=== PATIENT | male | born 1970 | race Caucasian/White ===

== ENCOUNTER 2018-01-05 02:10 | Emergency (ER) | payer BC ==
[2018-01-05] MEDS ORDERED: TORAdol 30 mg Injection IM ONE (02:38)
[2018-01-05] MEDS ORDERED: TORAdol 30 mg Injection ONE (02:40)
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
[2018-01-05 03:31] VITALS: BP 152/80; PULSE 133; O2SAT 96
--- NOTE | 2018-01-05 09:13 | XRAY ---
Indication: groin pain. Comparison: None AP pelvis and 2 views of the right hip demonstrates mild lower lumbar degenerative spondylosis, partially visualized lumbar spinal lead, calcified granuloma overlying right iliac crest, pelvic phleboliths, and minimal greater tuberosity spurring. No other bony, articular, or soft tissue abnormalities.
== END 2018-01-05 03:35 | disposition home or self-care (01) ==
LOC: ED 02:10
DX: S39.011A Strain of muscle, fascia and tendon of abdomen, initial encounter (principal); X50.0XXA Overexertion from strenuous movement or load, initial encounter; Y93.89 Activity, other specified; Y92.9 Unspecified place or not applicable; G62.9 Polyneuropathy, unspecified; M54.9 Dorsalgia, unspecified; G89.29 Other chronic pain; F45.42 Pain disorder with related psychological factors; I10 Essential (primary) hypertension; F32.9 Major depressive disorder, single episode, unspecified
CPT/HCPCS: 73502; 96372; 99283; 99284; J1885

== ENCOUNTER 2018-11-01 15:37 | Inpatient (IN) | payer MEDICARE, BC ==
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
[2018-11-01] MEDS ORDERED: Hydromorphone 1 mg/ml Ampule IV ONE (17:34)
[2018-11-01] MEDS ORDERED: Phenergan 25 MG INJ IV ONE (17:34)
[2018-11-01] MEDS ORDERED: Sodium Chloride 0.9% 1000 ML 1,000 ML IV STA (17:34)
[2018-11-01] MEDS ORDERED: Phenergan 25 MG INJ ONE (17:39)
[2018-11-01] MEDS ORDERED: Hydromorphone 1 mg/ml Ampule ONE (17:39)
[2018-11-01] MEDS ORDERED: Sodium Chloride 0.9% 1000 ML 1,000 ML ONE (17:39)
[2018-11-01 18:00] LABS: Hematocrit 52.3 % (42-50); Hemoglobin 17.4 gm/dl (12.5-18.0); Mean Cell Volume 89.7 fl (78-100); Mean Corpuscular Hemoglobin 29.8 pg (26-32); Mean Corpuscular Hgb Concent. 33.3 g/dl (32-36); Mean Platelet Volume 9.5 fl (6-9.5); Platelet Count 309 K/mm3 (150-450); Red Blood Count 5.83 M/mm3 (4.1-5.6); Red Cell Distribution Width 15.9 % (11.5-14.0); White Blood Count 15.4 K/mm3 (4.0-10.5)
[2018-11-01 18:04] LABS: Lactic Acid 2.5 (0.4-2.0)
[2018-11-01 18:22] LABS: ANION GAP 17.2 MEQ/L (5-15); BLOOD UREA NITROGEN 11 mg/dL (9-20); CHLORIDE 100 mmol/L (98-107); Calcium 9.5 mg/dL (8.4-10.2); Carbon Dioxide 26 mmol/L (22-30); Glucose 127 mg/dL (74-106); Potassium 4.5 mmol/L (3.5-5.1); SODIUM 139 mmol/L (137-145)
[2018-11-01] MEDS ORDERED: PHARMACY DOSING REQUIRED: DILAUDID PCA IV STA (20:49)
[2018-11-01] MEDS ORDERED: Phenergan 25 MG INJ IM PRN (20:49)
[2018-11-01] MEDS ORDERED: TYLENOL 325 MG PO PRN (20:49)
[2018-11-01] MEDS ORDERED: DILAUDID 1 MG/1ML PCA IV PRN (21:36)
[2018-11-01] MEDS ORDERED: Zovirax INJ IV SCH (22:00)
[2018-11-01 22:34] LABS: BAND 1 % (0.0-2.0); Eosinophil 2 % (0.00-3.0); Lymphocytes 6 % (24-44); Neutrophils 28 % (36.-66.); Platelet Estimate NORMAL (NORMAL); Promyelocyte 63 %; Total Cells Counted 100
[2018-11-01 22:35] LABS: ANISOCYTOSIS 1+; Poikilocytosis 1+; Toxic Granulation 1+
[2018-11-01] MEDS: Sodium Chloride 0.9% 1000 ML 1,000 ML IV SCH (22:36)
[2018-11-01 23:07] LABS: Lactic Acid 2.3 (0.4-2.0)
[2018-11-01] MEDS: Ms Contin 100 MG PO SCH (23:35)
[2018-11-01] MEDS: Vasotec 10 MG PO SCH (23:35)
[2018-11-01] MEDS: Cymbalta 30 MG Capsule PO SCH (23:35)
[2018-11-01] MEDS: ZOVIRAX IV SCH (23:36)
[2018-11-01] MEDS: solu-CORTEF 250MG IV SCH ×2 (23:36→23:41)
[2018-11-01] MEDS: SODIUM CHLORIDE 0.9% IV SCH (23:36)
[2018-11-02] MEDS ORDERED: Protonix 40MG Tablet ONE (00:11)
[2018-11-02] MEDS: Protonix 40MG Tablet PO SCH ×2 (00:19→22:32)
[2018-11-02] MEDS: MINERAL OIL PO SCH ×4 (03:51→22:32)
[2018-11-02] MEDS: ZOVIRAX IV SCH ×3 (06:57→18:39)
[2018-11-02] MEDS: SODIUM CHLORIDE 0.9% IV SCH ×3 (06:57→18:39)
--- NOTE | 2018-11-02 09:16 | XRAY ---
Indication: Headache 2 days. History hypertension and Mollaret's syndrome. Multiple contiguous axial images obtained through the head without contrast. Comparison: April 10, 2016. Stable small ovoid hypodensity in the superior sagittal sinus unchanged since May 03, 2009 and favored to be benign given stability over the years. No acute intracranial hemorrhage, abnormal extra-axial fluid collection, or mass effect. Fourth ventricle is midline without hydrocephalus. Naranjo-white matter differentiation preserved. Bony calvarium intact. Visualized paranasal sinuses and mastoid air cells are clear. Impression: Stable benign ovoid hypodensity in the superior sagittal sinus. No new or acute intracranial abnormalities. CTDI 69.90
--- NOTE | 2018-11-02 09:20 | XRAY ---
Indication: Neck pain 2 days. History hypertension and Mollaret's syndrome. Multiple contiguous axial images obtained through the cervical spine. Sagittal and coronal reformatted images obtained. Comparison: March 14, 2016. Axial images again negative for acute fracture, suspicious bony lesions, or spinal canal stenosis. Stable minimal C5-C7 degenerative endplate spurring. Sagittal and coronal reformatted images again demonstrate cervical lordotic straightening, positional versus paraspinal spasm. Stable minimal C5-C6 disc space narrowing. No acute compression fracture, subluxation, or jumped facet. Normal-appearing craniocervical junction. Visualized noncontrasted soft tissues including base of the brain and lung apices unremarkable. Impression: 1. Stable lordotic straightening, positional versus paraspinal spasm. 2. Stable C5-C7 degenerative changes. 3. No new or acute findings. CTDI 64.29
[2018-11-02] MEDS: solu-CORTEF 250MG IV SCH ×3 (09:58→20:39)
[2018-11-02] MEDS: Cymbalta 30 MG Capsule PO SCH ×2 (09:59→22:32)
[2018-11-02] MEDS: Ms Contin 100 MG PO SCH ×2 (09:59→22:32)
[2018-11-02] MEDS: Vasotec 10 MG PO SCH (09:59)
[2018-11-02] MEDS: Sodium Chloride 0.9% 1000 ML 1,000 ML IV SCH ×2 (10:21→22:31)
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
[2018-11-02] MEDS: ECOTRIN 81 MG PO SCH (13:30)
[2018-11-02] MEDS: DILAUDID 1 MG/1ML PCA IV PRN (20:37)
[2018-11-02] MEDS: NovoLOG Insulin SQ PRN (22:34)
[2018-11-03] MEDS: SODIUM CHLORIDE 0.9% IV SCH ×5 (00:20→23:43)
[2018-11-03] MEDS: ZOVIRAX IV SCH ×5 (00:20→23:43)
[2018-11-03] MEDS: DILAUDID 1 MG/1ML PCA IV PRN ×2 (01:57→23:10)
[2018-11-03] MEDS: solu-CORTEF 250MG IV SCH ×4 (02:59→19:31)
[2018-11-03 06:30] LABS: BASOPHIL % 0.2 % (0.0-0.4); Basophil (Absolute #) 0.02 (0-0.4); Eosinophil % 0.1 % (0.00-5.0); Eosinophil (Absolute #) 0.01 (0-0.5); Granulocytes % 87.2 % (36.0-66.0); Hematocrit 50.4 % (42-50); Hemoglobin 16.4 gm/dl (12.5-18.0); Lymphocyte (Absolute #) 1.16 (1.0-4.6); Lymphocytes % 9.2 % (24.0-44.0); Mean Cell Volume 91.5 fl (78-100); Mean Corpuscular Hemoglobin 29.8 pg (26-32); Mean Corpuscular Hgb Concent. 32.5 g/dl (32-36); Mean Platelet Volume 9.5 fl (6-9.5); Monocyte (Absolute #) 0.42 (0.0-1.3); Monocytes % 3.3 % (0.0-12.0); Platelet Count 310 K/mm3 (150-450); Red Blood Count 5.51 M/mm3 (4.1-5.6); Red Cell Distribution Width 15.8 % (11.5-14.0); White Blood Count 12.6 K/mm3 (4.0-10.5)
[2018-11-03 07:15] LABS: ANION GAP 14.3 MEQ/L (5-15); BLOOD UREA NITROGEN 12 mg/dL (9-20); CHLORIDE 104 mmol/L (98-107); Calcium 8.9 mg/dL (8.4-10.2); Carbon Dioxide 29 mmol/L (22-30); Creatinine 1 0.78 mg/dL (0.66-1.25); Glucose 132 mg/dL (74-106); Potassium 4.3 mmol/L (3.5-5.1); SODIUM 143 mmol/L (137-145)
--- NOTE | 2018-11-03 08:30 | PCM.NOTE ---
Date and Time: 11/03/18827 Subjective Assessment: patient reports some improvement in his headache, he is tolerating po. 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 General Appearance: no apparent distress, alert Neurologic Exam: alert, oriented x 3, cooperative, fixed income director II-XII nml as tested, No motor deficits, No sensory deficit Skin Exam: normal color, warm, dry Respiratory Exam: normal breath sounds, lungs clear, No respiratory distress Cardiovascular Exam: regular rate/rhythm, normal heart sounds Gastrointestinal/Abdomen Exam: soft, No tenderness, No mass Extremity Exam: normal inspection, normal range of motion OBJECTIVE DATA Vital Signs: Vital Signs - 24 hr Temp Pulse Resp BP Pulse Ox 11/03/18 08:08 93 L 11/03/18 08:00 97.6 F 79 20 123/77 96 11/03/18 05:57 95 11/03/18 04:10 97.8 F 69 18 124/72 97 11/03/18 01:57 96 11/03/18 00:37 96 11/03/18 00:06 98.7 F 89 18 119/55 96 11/02/18 23:00 97 11/02/18 20:37 97 11/02/18 20:18 98.3 F 92 H 16 110/57 97 11/02/18 18:47 96 11/02/18 18:03 96 11/02/18 16:42 97.8 F 91 H 20 114/59 96 11/02/18 12:39 97.8 F 83 20 123/76 97 Pain Assessment - Last Documented Pain Intensity 4 Pain Scale Used 0-10 Pain Scale,FLACC Intake and Output: Intake & Output 10/31/18 11/01/18 11/02/18 11/03/18 11:59 11:59 11:59 11:59 Intake Total 1172 4837 Output Total 400 1700 Balance 772 3137 Weight 106.5 kg Lab Results: Accuchecks Date 11/02/18 Date 11/02/18 Time 22:00 Time 16:30 Accucheck Value: 216 Accucheck Value: 178 Lab Results-Last 24 Hours 11/01/18 11/03/18 11/03/18 Range/Units 17:34 06:00 06:00 WBC 12.6 H (4.0-10.5) K/mm3 RBC 5.51 (4.1-5.6) M/mm3 Hgb 16.4 (12.5-18.0) gm/dl Hct 50.4 H (42-50) % MCV 91.5 (78-100) fl MCH 29.8 (26-32) pg MCHC 32.5 (32-36) g/dl RDW 15.8 H (11.5-14.0) % Plt Count 310 (150-450) K/mm3 MPV 9.5 (6-9.5) fl Gran % 87.2 H (36.0-66.0) % Eos # (Auto) 0.01 (0-0.5) Absolute Lymphs (auto) 1.16 (1.0-4.6) Absolute Monos (auto) 0.42 (0.0-1.3) Lymphocytes % 9.2 L (24.0-44.0) % Monocytes % 3.3 (0.0-12.0) % Eosinophils % 0.1 (0.00-5.0) % Basophils % 0.2 (0.0-0.4) % Absolute Granulocytes 10.95 H (1.4-6.9) Basophils # 0.02 (0-0.4) Sodium 143 (137-145) mmol/L Potassium 4.3 (3.5-5.1) mmol/L Chloride 104 (98-107) mmol/L Carbon Dioxide 29 (22-30) mmol/L Anion Gap 14.3 (5-15) MEQ/L BUN 12 (9-20) mg/dL Creatinine 0.78 (0.66-1.25) mg/dL Estimated GFR > 60.0 ML/MIN Glucose 132 H (74-106) mg/dL Hemoglobin A1c 6.22 H (4.5-6.0) % Calcium 8.9 (8.4-10.2) mg/dL Radiology Exams: Radiology Procedures Category Date Time Status CERVICAL SPINE WO CONTRAST [CT] Stat Exams 11/01/18 17:34 Completed HEAD WITHOUT CONTRAST [CT] Stat Exams 11/01/18 17:34 Completed Assessment/Plan (1) 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: Acute Assessment & Plan: improving with IV acyclovir and steroids, continue current treatment at this time. Code(s): G03.2 - BENIGN RECURRENT MENINGITIS [MOLLARET] (2) Paresthesia of both legs Current Visit: No Status: Acute Code(s): R20.2 - PARESTHESIA OF SKIN (3) Opiate dependence Current Visit: No Status: Chronic Code(s): F11.20 - OPIOID DEPENDENCE, UNCOMPLICATED (4) Type 2 diabetes mellitus Current Visit: No Status: Chronic
[2018-11-03] MEDS ORDERED: NON-FORMULARY ITEM (Aspirin [Aspirin] 81 MG) PO SCH (10:00)
[2018-11-03] MEDS: ECOTRIN 81 MG PO SCH (10:18)
[2018-11-03] MEDS: Cymbalta 30 MG Capsule PO SCH ×2 (10:18→22:07)
[2018-11-03] MEDS: Ms Contin 100 MG PO SCH ×2 (10:18→22:07)
[2018-11-03] MEDS: Sodium Chloride 0.9% 1000 ML 1,000 ML IV SCH ×2 (10:18→22:08)
[2018-11-03] MEDS: MINERAL OIL PO SCH ×3 (10:24→22:07)
[2018-11-03] MEDS: NovoLOG Insulin SQ PRN ×2 (16:52→22:07)
[2018-11-03] MEDS ORDERED: Vasotec 10 MG PO SCH (22:00)
[2018-11-03] MEDS: Protonix 40MG Tablet PO SCH (22:07)
[2018-11-04] MEDS: solu-CORTEF 250MG IV SCH ×2 (03:32→09:31)
[2018-11-04] MEDS: SODIUM CHLORIDE 0.9% IV SCH (05:55)
[2018-11-04] MEDS: ZOVIRAX IV SCH (05:55)
[2018-11-04 06:14] LABS: BASOPHIL % 0.1 % (0.0-0.4); Basophil (Absolute #) 0.01 (0-0.4); Eosinophil % 0.1 % (0.00-5.0); Eosinophil (Absolute #) 0.01 (0-0.5); Granulocytes % 83.2 % (36.0-66.0); Hematocrit 45.9 % (42-50); Hemoglobin 14.9 gm/dl (12.5-18.0); Lymphocyte (Absolute #) 1.55 (1.0-4.6); Lymphocytes % 11.4 % (24.0-44.0); Mean Cell Volume 92.4 fl (78-100); Mean Corpuscular Hgb Concent. 32.5 g/dl (32-36); Mean Platelet Volume 9.6 fl (6-9.5); Monocyte (Absolute #) 0.71 (0.0-1.3); Monocytes % 5.2 % (0.0-12.0); Platelet Count 305 K/mm3 (150-450); Red Blood Count 4.97 M/mm3 (4.1-5.6); Red Cell Distribution Width 15.9 % (11.5-14.0); White Blood Count 13.6 K/mm3 (4.0-10.5)
[2018-11-04 06:55] LABS: ALBUMIN 3.7 g/dL (3.5-5.0); ALKALINE PHOSPHATASE 71 U/L (38-126); BLOOD UREA NITROGEN 15 mg/dL (9-20); CHLORIDE 104 mmol/L (98-107); Calcium 8.7 mg/dL (8.4-10.2); Carbon Dioxide 31 mmol/L (22-30); Creatinine 1 0.81 mg/dL (0.66-1.25); Glucose 125 mg/dL (74-106); Potassium 4.9 mmol/L (3.5-5.1); SGOT/AST 23 U/L (17-59); SGPT/ALT 27 U/L (0-50); SODIUM 142 mmol/L (137-145); Total Protein 6.5 g/dL (6.3-8.2)
[2018-11-04 06:56] LABS: ANION GAP 11.9 MEQ/L (5-15)
[2018-11-04 07:27] VITALS: BP 124/68; PULSE 66
[2018-11-04 07:42] VITALS: O2SAT 95
--- NOTE | 2018-11-04 07:57 | PCM.DS ---
Discharge Summary Date of Admission: 11/01/18 20:43 Admitting Physician: ANN ALEXIS Primary Care Provider: ANN ALEXIS Allergies Allergies pregabalin [From Lyrica] Adverse Reaction (Severe, Verified 11/01/18 16:22) Hives SOB hives azithromycin [From Zmax] Adverse Reaction (Mild, Verified 11/01/18 16:22) vomiting methylprednisolone sodium succinate [From Solu-Medrol] Adverse Reaction (Mild, Verified 11/01/18 16:22) INCREASED OCULAR PRESSURE pt states he does okay with steriods and this is a minor side effect Hospital Summary - Hospital Course Hospital Course: patient with history of Mollaret's syndrome (recurrent aseptic meningitis) was admitted with usual flare with headache, photophobia, nausea and feeling poorly. was admitted and put on case fitter and IV fluids with acyclovir and solu cortef. he is feeling much better, tolerating po and ambulating. has chronic headaches and pain managed by Dr Greer - Vitals & Intake/Output Vital Signs: Vital Signs Temperature 98.2 F 11/04/18 07:26 Pulse Rate 66 11/04/18 07:26 Respiratory Rate 20 11/04/18 07:26 Blood Pressure 124/68 11/04/18 07:26 O2 Sat by Pulse Oximetry 95 11/04/18 07:40 Intake & Output: Intake & Output 11/01/18 11/02/18 11/03/18 11/04/18 11:59 11:59 11:59 11:59 Intake Total 1172 4837 3371 Output Total 400 1700 1000 Balance 772 1367 2371 Weight 106.5 kg 106.5 kg - Lab Result Diagrams: 11/04/18 05:43 11/04/18 05:43 Lab Results-Last 24 Hrs: Accuchecks Date 11/04/18 Date 11/03/18 Date 11/03/18 Date 11/03/18 Time 05:00 Time 22:00 Time 16:30 Time 11:30 Accucheck Value: 178 Accucheck Value: 152 Accucheck Value: 144 Lab Results-Last 24 Hours 11/04/18 11/04/18 Range/Units 05:43 05:43 WBC 13.6 H (4.0-10.5) K/mm3 RBC 4.97 (4.1-5.6) M/mm3 Hgb 14.9 (12.5-18.0) gm/dl Hct 45.9 (42-50) % MCV 92.4 (78-100) fl MCH 30.0 (26-32) pg MCHC 32.5 (32-36) g/dl RDW 15.9 H (11.5-14.0) % Plt Count 305 (150-450) K/mm3 MPV 9.6 H (6-9.5) fl Gran % 83.2 H (36.0-66.0) % Eos # (Auto) 0.01 (0-0.5) Absolute Lymphs (auto) 1.55 (1.0-4.6) Absolute Monos (auto) 0.71 (0.0-1.3) Lymphocytes % 11.4 L (24.0-44.0) % Monocytes % 5.2 (0.0-12.0) % Eosinophils % 0.1 (0.00-5.0) % Basophils % 0.1 (0.0-0.4) % Absolute Granulocytes 11.33 H (1.4-6.9) Basophils # 0.01 (0-0.4) Sodium 142 (137-145) mmol/L Potassium 4.9 (3.5-5.1) mmol/L Chloride 104 (98-107) mmol/L Carbon Dioxide 31 H (22-30) mmol/L Anion Gap 11.9 (5-15) MEQ/L BUN 15 (9-20) mg/dL Creatinine 0.81 (0.66-1.25) mg/dL Estimated GFR > 60.0 ML/MIN Glucose 125 H (74-106) mg/dL Calcium 8.7 (8.4-10.2) mg/dL Total Bilirubin 0.50 (0.2-1.3) mg/dL AST 23 (17-59) U/L ALT 27 (0-50) U/L Alkaline Phosphatase 71 (38-126) U/L Serum Total Protein 6.5 (6.3-8.2) g/dL Albumin 3.7 (3.5-5.0) g/dL Micro Results-Entire Visit: Accuchecks Date 11/04/18 Date 11/03/18 Date 11/03/18 Date 01/02/19 Time 05:00 Time 22:00 Time 16:30 Time 11:30 Accucheck Value: 178 Accucheck Value: 152 Accucheck Value: 144 Discharge Exam General Appearance: no apparent distress, alert Neurologic Exam: alert, oriented x 3, cooperative, normal mood/affect, nml cerebellar function, sensation nml, other (wears AFO pop with foot drop chronic from Mollaret's), No motor deficits Skin Exam: normal color, warm, dry Respiratory Exam: normal breath sounds, lungs clear, No respiratory distress Cardiovascular Exam: regular rate/rhythm, normal heart sounds Gastrointestinal/Abdomen Exam: soft, No tenderness, No mass Extremity Exam: normal inspection, normal range of motion Final Diagnosis/Problem List - Final Discharge Diagnosis/Problem (1) 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: Acute Onset Date: ~11/01/18 Assessment & Plan: home on po acyclovir, resume previous home meds. (2) Paresthesia of both legs Current Visit: No Status: Chronic (3) Opiate dependence Current Visit: No Status: Chronic (4) Type 2 diabetes mellitus Current Visit: No Status: Chronic - Discharge Disposition: Home, Self-Care Condition: Stable Prescriptions: New Acyclovir 400 mg PO TID #21 tablet Continue Enalapril Maleate 10 mg [Vasotec 10 MG] 20 mg PO HS Multivitamin [Multi-Vitamin Daily] 1 each PO DAILY Aspirin 81 mg PO DAILY Mineral Oil 30 ml PO TID Testosterone Cypionate 1.5 ml IM UD Duloxetine HCl [Cymbalta] 60 tab PO BID Prednisone 10 mg [Deltasone 10 mg] 10 mg PO DAILY Metformin HCl 500 mg [Glucophage 500 MG] 500 mg PO TID Morphine Sulfate Cr 100 mg [Ms Contin 100 MG] 100 mg PO BID PANTOPRAZOLE 40 mg Tablet [Protonix 40MG Tablet] 40 mg PO QPM Follow up with: ANN ALEXIS MD [Primary Care Provider] - 1 Week
[2018-11-04] MEDS: Cymbalta 30 MG Capsule PO SCH (09:31)
[2018-11-04] MEDS: Ms Contin 100 MG PO SCH (09:31)
[2018-11-04] MEDS: ECOTRIN 81 MG PO SCH (09:31)
[2018-11-04] MEDS: MINERAL OIL PO SCH (09:32)
== END 2018-11-04 10:00 | disposition home or self-care (01) | DRG 76 ==
LOC: ED 15:37 → MED SURG 20:43
PROVIDERS: ADMIT Family Medicine; ATTEND Family Medicine
DX: G03.2 Benign recurrent meningitis [Mollaret] (principal); I10 Essential (primary) hypertension; F42.9 Obsessive-compulsive disorder, unspecified; K21.9 Gastro-esophageal reflux disease without esophagitis; M79.2 Neuralgia and neuritis, unspecified; R51 Headache; Z79.899 Other long term (current) drug therapy
CPT/HCPCS: 36415; 70450; 72125; 80048; 80053; 82962; 83036; 83605; 85025; 94762; 96360; 96374; 96375; 99285; J1170; J1720; J2550; A9270-GY

== ENCOUNTER 2019-07-29 15:07 | Inpatient (IN) | payer MEDICARE, BC ==
[2019-07-29] MEDS ORDERED: Zofran 4 MG/2 ML VIAL IV PRN (15:32)
[2019-07-29] MEDS ORDERED: TYLENOL 325 MG PO PRN (15:34)
[2019-07-29] MEDS: Morphine PCA 1 MG/ML 30 ML IV PRN ×2 (15:58→22:39)
[2019-07-29] MEDS ORDERED: DEXTROSE IV SCH (16:00)
[2019-07-29] MEDS ORDERED: ZOVIRAX IV SCH (16:00)
[2019-07-29] MEDS ORDERED: WATER IV SCH (16:00)
[2019-07-29] MEDS: solu-CORTEF 100MG IV SCH ×2 (16:14→22:39)
[2019-07-29] MEDS: Sodium Chloride 0.9% 1000 ML 1,000 ML IV SCH (16:18)
[2019-07-29] MEDS ORDERED: DILAUDID 2 MG INJECTION IV STA (16:59)
[2019-07-29 17:17] LABS: Hematocrit 48.8 % (42-50); Hemoglobin 16.3 gm/dl (12.5-18.0); Mean Cell Volume 88.4 fl (78-100); Mean Corpuscular Hemoglobin 29.5 pg (26-32); Mean Corpuscular Hgb Concent. 33.4 g/dl (32-36); Mean Platelet Volume 9.9 fl (6-9.5); Platelet Count 360 K/mm3 (150-450); Red Blood Count 5.52 M/mm3 (4.1-5.6); Red Cell Distribution Width 15.6 % (11.5-14.0); White Blood Count 10.7 K/mm3 (4.0-10.5)
[2019-07-29 17:24] LABS: Amourphous Crystal FEW /HPF (NEGATIVE); Appearance CLEAR (CLEAR); Bilirubin NEGATIVE (NEGATIVE); Blood NEGATIVE Ery/ul (0-5); Glucose NEGATIVE (NEGATIVE); Ketones NEGATIVE (NEGATIVE); Leukocyte Esterase NEGATIVE (NEGATIVE); Mucus SLIGHT /HPF (NEGATIVE); Nitrite NEGATIVE (NEGATIVE); Protein,Urine Dip NEGATIVE (Negative); Specific Gravity 1.024 (1.005-1.025); Urobilinogen NEGATIVE mg/dL (0-1); WBC 0-2 /HPF (0-5)
[2019-07-29 17:38] LABS: ALBUMIN 4.1 g/dL (3.5-5.0); ALKALINE PHOSPHATASE 97 U/L (38-126); ANION GAP 16.8 MEQ/L (5-15); BLOOD UREA NITROGEN 10 mg/dL (9-20); CHLORIDE 101 mmol/L (98-107); Calcium 9.2 mg/dL (8.4-10.2); Carbon Dioxide 25 mmol/L (22-30); Creatinine 1 0.77 mg/dL (0.66-1.25); Glucose 138 mg/dL (74-106); Potassium 4.5 mmol/L (3.5-5.1); SGOT/AST 33 U/L (17-59); SGPT/ALT 41 U/L (0-50); SODIUM 138 mmol/L (137-145); Total Protein 7.4 g/dL (6.3-8.2)
[2019-07-29 20:09] LABS: Eosinophil 1 % (0.00-3.0); Lymphocytes 18 % (24-44); Monocyte 4 % (0.0-12.0); Neutrophils 77 % (36.-66.); Platelet Estimate NORMAL (NORMAL); Total Cells Counted 100
[2019-07-29] MEDS: Cymbalta 30 MG Capsule PO SCH (21:28)
[2019-07-29] MEDS: Protonix 40MG Tablet PO SCH (21:28)
[2019-07-29] MEDS: Vasotec 10 MG PO SCH (21:28)
[2019-07-29] MEDS: DILAUDID 2 MG INJECTION IV PRN (23:01)
[2019-07-30] MEDS: DEXTROSE IV SCH ×3 (01:13→17:30)
[2019-07-30] MEDS: WATER IV SCH ×3 (01:13→17:30)
[2019-07-30] MEDS: ZOVIRAX IV SCH ×3 (01:13→17:30)
[2019-07-30] MEDS: Sodium Chloride 0.9% 1000 ML 1,000 ML IV SCH ×3 (01:19→21:26)
[2019-07-30] MEDS: solu-CORTEF 100MG IV SCH ×3 (05:45→21:18)
[2019-07-30] MEDS: Morphine PCA 1 MG/ML 30 ML IV PRN ×4 (05:53→23:06)
[2019-07-30] MEDS: DILAUDID 2 MG INJECTION IV PRN ×3 (06:08→19:25)
[2019-07-30] MEDS: Glucophage 500 MG PO SCH ×3 (08:09→17:25)
--- NOTE | 2019-07-30 08:23 | PCM.NOTE ---
Date and Time: 07/30/19819 Subjective Assessment: doing ok, increased headache relieved by one dose of IV diluadid, IV infiltrated on left forearm. - Review of Systems Constitutional: No Fever, No Chills Eyes: No Symptoms Ears, Nose, & Throat: No Symptoms Respiratory: No Cough, No Short Of Breath Cardiac: No Chest Pain, No Edema, No Syncope Abdominal/Gastrointestinal: No Abdominal Pain, No Nausea, No Vomiting, No Diarrhea Genitourinary Symptoms: No Dysuria Musculoskeletal: No Back Pain, No Neck Pain Skin: No Rash Neurological: Headache, No Dizziness, No Focal Weakness, No Sensory Changes Psychological: No Symptoms Endocrine: No Symptoms Hematologic/Lymphatic: No Symptoms Immunological/Allergic: No Symptoms Objective Exam General Appearance: no apparent distress, alert Neurologic Exam: alert, oriented x 3, cooperative, normal mood/affect, nml cerebellar function, sensation nml, No motor deficits Skin Exam: normal color, warm, dry Eye Exam: PERRL, EOMI, eyes nml inspection Ears, Nose, Throat Exam: normal ENT inspection, pharynx normal, moist mucous membranes Neck Exam: normal inspection, non-tender, supple, full range of motion Respiratory Exam: normal breath sounds, lungs clear, No respiratory distress Cardiovascular Exam: regular rate/rhythm, normal heart sounds Gastrointestinal/Abdomen Exam: soft, No tenderness, No mass Extremity Exam: normal inspection, normal range of motion Back Exam: normal inspection, normal range of motion, No CVA tenderness, No vertebral tenderness Male Genitalia Exam: deferred Rectal Exam: deferred OBJECTIVE DATA Vital Signs: Vital Signs - 24 hr Temp Pulse Resp BP Pulse Ox 07/30/19 07:32 97.4 F 86 17 126/78 96 07/30/19 06:57 96 07/30/19 06:01 98 07/30/19 05:53 98 07/30/19 04:25 98.1 F 87 16 100/55 98 07/30/19 00:20 98.4 F 107 H 18 92/52 98 07/29/19 22:39 96 07/29/19 20:20 93 L 07/29/19 20:00 98.4 F 107 H 17 120/64 94 L 07/29/19 17:05 95 07/29/19 16:26 98.9 F 94 H 18 131/87 92 L 07/29/19 16:02 98.9 F 94 H 18 131/87 92 L 07/29/19 15:58 92 L Pain Assessment - Last Documented Pain Intensity 7 Pain Scale Used 0-10 Pain Scale Intake and Output: Intake & Output 07/27/19 07/28/19 07/29/19 07/30/19 11:59 11:59 11:59 11:59 Intake Total 3689 Output Total 2425 Balance 1264 Weight 111.7 kg Lab Results: Accuchecks Date 07/29/19 Date 07/29/19 Time 21:40 Time 16:30 Accucheck Value: 218 Accucheck Value: 133 Lab Results-Last 24 Hours 07/29/19 07/29/19 07/29/19 Range/Units 15:37 17:02 17:02 WBC 10.7 H (4.0-10.5) K/mm3 RBC 5.52 (4.1-5.6) M/mm3 Hgb 16.3 (12.5-18.0) gm/dl Hct 48.8 (42-50) % MCV 88.4 (78-100) fl MCH 29.5 (26-32) pg MCHC 33.4 (32-36) g/dl RDW 15.6 H (11.5-14.0) % Plt Count 360 (150-450) K/mm3 MPV 9.9 H (6-9.5) fl Segmented Neutrophils 77 H (36.-66.) % Lymphocytes (Manual) 18 L (24-44) % Monocytes (Manual) 4 (0.0-12.0) % Eosinophils (Manual) 1 (0.00-3.0) % Platelet Estimate NORMAL (NORMAL) RBC Morphology NORMAL Sodium 138 (137-145) mmol/L Potassium 4.5 (3.5-5.1) mmol/L Chloride 101 (98-107) mmol/L Carbon Dioxide 25 (22-30) mmol/L Anion Gap 16.8 H (5-15) MEQ/L BUN 10 (9-20) mg/dL Creatinine 0.77 (0.66-1.25) mg/dL Estimated GFR > 60.0 ML/MIN Glucose 138 H (74-106) mg/dL Calcium 9.2 (8.4-10.2) mg/dL Total Bilirubin 0.50 (0.2-1.3) mg/dL AST 33 (17-59) U/L ALT 41 (0-50) U/L Alkaline Phosphatase 97 (38-126) U/L Serum Total Protein 7.4 (6.3-8.2) g/dL Albumin 4.1 (3.5-5.0) g/dL Urine Color YELLOW (YELLOW) Urine Appearance CLEAR (CLEAR) Urine pH 7.0 (5-6) Ur Specific [place] 1.024 (1.005-1.025) Urine Protein NEGATIVE (Negative) Urine Ketones NEGATIVE (NEGATIVE) Urine Blood NEGATIVE (0-5) Chase/ul Urine Nitrite NEGATIVE (NEGATIVE) Urine Bilirubin NEGATIVE (NEGATIVE) Urine Urobilinogen NEGATIVE (0-1) mg/dL Ur Leukocyte Esterase NEGATIVE (NEGATIVE) Urine WBC (Auto) 0-2 (0-5) /HPF Urine RBC (Auto) NONE (0-2) /HPF U Epithel Cells (Auto) NONE (FEW) /HPF Urine Bacteria (Auto) NONE (NEGATIVE) /HPF Amorphous Crystals FEW (NEGATIVE) /HPF Urine Mucus (Auto) SLIGHT (NEGATIVE) /HPF Urine Culture Reflexed NO (NO) Urine Glucose NEGATIVE (NEGATIVE) mg/dL Assessment/Plan (1) 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: Acute Onset Date: ~11/01/18 Assessment & Plan: Last Vital Signs Temp 97.4 F 07/30/19 07:32 Pulse 86 07/30/19 07:32 Resp 17 07/30/19 07:32 BP 126/78 07/30/19 07:32 Pulse Ox 96 07/30/19 07:32 Allergies pregabalin [From Lyrica] Adverse Reaction (Severe, Verified 11/01/18 16:22) Hives SOB hives azithromycin [From Zmax] Adverse Reaction (Mild, Verified 11/01/18 16:22) vomiting methylprednisolone sodium succinate [From Solu-Medrol] Adverse Reaction (Mild, Verified 11/01/18 16:22) INCREASED OCULAR PRESSURE pt states he does okay with steriods and this is a minor side effect Active Medications Acetaminophen (Tylenol 325 Mg) 650 mg PO Q6H PRN PRN Stop: 08/28/19 15:33 Aspirin (Ecotrin 81 Mg) 81 mg PO DAILY [facility] Stop: 08/29/19 09:59 Duloxetine HCl (Cymbalta 30 Mg Capsule) 60 mg PO BID [facility] Stop: 08/28/19 21:59 Last Admin: 07/29/19 21:28 Dose: 60 mg Enalapril Maleate (Vasotec 10 Mg) 20 mg PO HS [facility] Stop: 08/28/19 21:59 Last Admin: 07/29/19 21:28 Dose: 20 mg Hydrocortisone Sodium Succinate (Solu-Cortef 100mg) 100 mg IV Q8HT [facility] Stop: 08/28/19 15:49 Last Admin: 07/30/19 05:45 Dose: 100 mg Hydromorphone HCl (Dilaudid 2 Mg Injection) 1 mg IV Q6H PRN PRN PRN Reason: PAIN Stop: 08/03/19 22:54 Last Admin: 07/30/19 06:08 Dose: 1 mg Sodium Chloride (Sodium Chloride 0.9% 1000 Ml) 1,000 mls @ 100 mls/hr IV .Q10H [facility] Stop: 08/28/19 15:29 Last Admin: 07/30/19 01:19 Dose: 100 mls/hr Acyclovir Sodium 1,000 mg/ (Dextrose) 250 mls @ 250 mls/hr IV Q8H [facility] Stop: 08/29/19 01:59 Last Admin: 07/30/19 01:13 Dose: 250 mls/hr Insulin Aspart (Novolog Insulin) 0 unit SQ UD PRN Stop: 08/28/19 15:44 Metformin HCl (Glucophage 500 Mg) 500 mg PO TIDWM [facility] Stop: 08/29/19 07:59 Last Admin: 07/30/19 08:09 Dose: 500 mg Morphine Sulfate (Morphine Brickmason Supervisor 1 Mg/Ml 30 Ml) 0 mg IV UD PRN Stop: 08/03/19 15:26 Last Admin: 07/30/19 06:01 Dose: 30 mg Multivitamins Therapeutic (Theragran Multivitamin) 1 tab PO DAILY [facility] Stop: 08/29/19 09:59 Ondansetron HCl (Zofran 4 Mg/2 Ml Vial) 4 mg IV Q4H PRN PRN PRN Reason: NAUSEA/VOMITING Stop: 08/28/19 15:31 Pantoprazole Sodium (Protonix 40mg Tablet) 40 mg PO HS [facility] Stop: 08/28/19 21:59 Last Admin: 07/29/19 21:28 Dose: 40 mg Patient Own Med : Implanted Morphine Pump 0 each IJ DAILY [facility] Stop: 08/29/19 09:59 Intake & Output 07/29/19 07/30/19 11:59 11:59 Intake Total 3689 Output Total 2425 Balance 1264 Weight 111.7 kg Orders 07/29/19 22:55 Hydromorphone 2Mg Inj [Dilaudid 2 mg Injection] 1 mg IV Q6H PRN PRN Lab Tests 07/29/19 07/29/19 07/29/19 15:37 17:02 17:02 WBC 10.7 H RBC 5.52 Hgb 16.3 Hct 48.8 MCV 88.4 MCH 29.5 MCHC 33.4 RDW 15.6 H Plt Count 360 MPV 9.9 H Segmented Neutrophils 77 H Lymphocytes (Manual) 18 L Monocytes (Manual) 4 Eosinophils (Manual) 1 Platelet Estimate NORMAL RBC Morphology NORMAL Sodium 138 Potassium 4.5 Chloride 101 Carbon Dioxide 25 Anion Gap 16.8 H BUN 10 Creatinine 0.77 Estimated GFR > 60.0 Glucose 138 H Calcium 9.2 Total Bilirubin 0.50 AST 33 ALT 41 Alkaline Phosphatase 97 Serum Total Protein 7.4 Albumin 4.1 Urine Color YELLOW Urine Appearance CLEAR Urine pH 7.0 Ur Specific [place] 1.024 Urine Protein NEGATIVE Urine Ketones NEGATIVE Urine Blood NEGATIVE Urine Nitrite NEGATIVE Urine Bilirubin NEGATIVE Urine Urobilinogen NEGATIVE Ur Leukocyte Esterase NEGATIVE Urine WBC (Auto) 0-2 Urine RBC (Auto) NONE U Epithel Cells (Auto) NONE Urine Bacteria (Auto) NONE Amorphous Crystals FEW Urine Mucus (Auto) SLIGHT Urine Culture Reflexed NO Urine Glucose NEGATIVE Code(s): G03.2 - BENIGN RECURRENT MENINGITIS [MOLLARET] (2) Cephalgia Current Visit: No Status: Acute Onset Date: ~11/01/18 Qualifiers: Headache type: unspecified Headache chronicity pattern: chronic headache Intractability: not intractable Qualified Code(s): R51 - Headache Code(s): R51 - HEADACHE (3) Paresthesia of both legs Current Visit: No Status: Chronic Code(s): R20.2 - PARESTHESIA OF SKIN (4) Type 2 diabetes mellitus Current Visit: No Status: Chronic
[2019-07-30] MEDS: THERAGRAN MULTIVITAMIN PO SCH (09:35)
[2019-07-30] MEDS: Cymbalta 30 MG Capsule PO SCH ×2 (09:35→21:17)
[2019-07-30] MEDS: PATIENT OWN MEDICATION IJ SCH (09:36)
[2019-07-30] MEDS: ECOTRIN 81 MG PO SCH (09:36)
[2019-07-30] MEDS ORDERED: MORPHINE SULFATE IJ SCH (10:00)
[2019-07-30] MEDS ORDERED: NON-FORMULARY ITEM (Aspirin [Aspirin] 81 MG) PO SCH (10:00)
[2019-07-30] MEDS ORDERED: NON-FORMULARY ITEM (Multivitamin [Multi-Vitamin Daily] 1 EACH) PO SCH (10:00)
[2019-07-30] MEDS: NovoLOG Insulin SQ PRN ×2 (12:52→21:19)
[2019-07-30] MEDS: Vasotec 10 MG PO SCH (21:18)
[2019-07-30] MEDS: Protonix 40MG Tablet PO SCH (21:18)
[2019-07-31] MEDS: DEXTROSE IV SCH ×3 (02:03→17:17)
[2019-07-31] MEDS: WATER IV SCH ×3 (02:03→17:17)
[2019-07-31] MEDS: ZOVIRAX IV SCH ×3 (02:03→17:17)
[2019-07-31] MEDS: solu-CORTEF 100MG IV SCH ×3 (06:36→21:13)
[2019-07-31] MEDS: DILAUDID 2 MG INJECTION IV PRN ×3 (06:52→21:25)
[2019-07-31] MEDS: Sodium Chloride 0.9% 1000 ML 1,000 ML IV SCH ×2 (06:52→17:16)
[2019-07-31] MEDS: Glucophage 500 MG PO SCH ×3 (07:55→16:31)
[2019-07-31] MEDS: THERAGRAN MULTIVITAMIN PO SCH (09:06)
[2019-07-31] MEDS: Cymbalta 30 MG Capsule PO SCH ×2 (09:06→21:12)
[2019-07-31] MEDS: ECOTRIN 81 MG PO SCH (09:06)
[2019-07-31] MEDS: PATIENT OWN MEDICATION IJ SCH (09:07)
--- NOTE | 2019-07-31 09:46 | PCM.NOTE ---
Date and Time: 07/31/1945 Subjective Assessment: doing better, headache is better, IV infiltration site appears resolving - Review of Systems Constitutional: No Fever, No Chills Eyes: No Symptoms Ears, Nose, & Throat: No Symptoms Respiratory: No Cough, No Short Of Breath Cardiac: No Chest Pain, No Edema, No Syncope Abdominal/Gastrointestinal: No Abdominal Pain, No Nausea, No Vomiting, No Diarrhea Genitourinary Symptoms: No Dysuria Musculoskeletal: No Back Pain, No Neck Pain Skin: No Rash Neurological: No Dizziness, No Focal Weakness, No Sensory Changes Psychological: No Symptoms Endocrine: No Symptoms Hematologic/Lymphatic: No Symptoms Immunological/Allergic: No Symptoms Objective Exam General Appearance: no apparent distress, alert Neurologic Exam: alert, oriented x 3, cooperative, normal mood/affect, nml cerebellar function, sensation nml, No motor deficits Skin Exam: normal color, warm, dry Eye Exam: PERRL, EOMI, eyes nml inspection Ears, Nose, Throat Exam: normal ENT inspection, pharynx normal, moist mucous membranes Neck Exam: normal inspection, non-tender, supple, full range of motion Respiratory Exam: normal breath sounds, lungs clear, No respiratory distress Cardiovascular Exam: regular rate/rhythm, normal heart sounds Gastrointestinal/Abdomen Exam: soft, No tenderness, No mass Extremity Exam: normal inspection, normal range of motion Back Exam: normal inspection, normal range of motion, No CVA tenderness, No vertebral tenderness Male Genitalia Exam: deferred Rectal Exam: deferred OBJECTIVE DATA Vital Signs: Vital Signs - 24 hr Temp Pulse Resp BP Pulse Ox 07/31/19 07:57 97.7 F 76 18 124/68 98 07/31/19 07:13 97 07/31/19 06:45 98 07/31/19 06:01 98 07/31/19 04:04 98.4 F 94 H 18 99/57 98 07/31/19 03:06 98 07/31/19 02:45 97 07/31/19 02:01 98 07/30/19 23:37 98.1 F 94 H 20 128/73 99 07/30/19 23:06 98 07/30/19 22:45 98 07/30/19 22:01 98 07/30/19 20:05 99 07/30/19 19:32 97.4 F 110 H 16 111/63 98 07/30/19 18:45 98 07/30/19 18:01 98 07/30/19 17:10 96 07/30/19 16:00 97.4 F 88 18 118/65 96 07/30/19 14:45 97 07/30/19 14:01 96 07/30/19 12:00 97.6 F 97 H 18 118/65 96 07/30/19 11:30 97 07/30/19 10:01 97 Pain Assessment - Last Documented Pain Intensity 7 Pain Scale Used 0-10 Pain Scale Intake and Output: Intake & Output 07/28/19 07/29/19 07/30/19 07/31/19 11:59 11:59 11:59 11:59 Intake Total 4049 5308 Output Total 2809 5725 Balance 1249 -417 Weight 111.7 kg Lab Results: Accuchecks Accucheck Value: 111 Accucheck Value: 202 Accucheck Value: 145 Accucheck Value: 185 Assessment/Plan (1) 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: Acute Onset Date: ~11/01/18 Assessment & Plan: Last Vital Signs Temp 97.7 F 07/31/19 07:57 Pulse 76 07/31/19 07:57 Resp 18 07/31/19 07:57 BP 124/68 07/31/19 07:57 Pulse Ox 98 07/31/19 07:57 Allergies pregabalin [From Lyrica] Adverse Reaction (Severe, Verified 11/01/18 16:22) Hives SOB hives azithromycin [From Zmax] Adverse Reaction (Mild, Verified 11/01/18 16:22) vomiting methylprednisolone sodium succinate [From Solu-Medrol] Adverse Reaction (Mild, Verified 11/01/18 16:22) INCREASED OCULAR PRESSURE pt states he does okay with steriods and this is a minor side effect Active Medications Acetaminophen (Tylenol 325 Mg) 650 mg PO Q6H PRN PRN Stop: 08/28/19 15:33 Aspirin (Ecotrin 81 Mg) 81 mg PO DAILY [facility] Stop: 08/29/19 09:59 Last Admin: 07/31/19 09:06 Dose: 81 mg Duloxetine HCl (Cymbalta 30 Mg Capsule) 60 mg PO BID [facility] Stop: 08/28/19 21:59 Last Admin: 07/31/19 09:06 Dose: 60 mg Enalapril Maleate (Vasotec 10 Mg) 20 mg PO HS [facility] Stop: 08/28/19 21:59 Last Admin: 07/30/19 21:18 Dose: 20 mg Hydrocortisone Sodium Succinate (Solu-Cortef 100mg) 100 mg IV Q8HT [facility] Stop: 08/28/19 15:49 Last Admin: 07/31/19 06:36 Dose: 100 mg Hydromorphone HCl (Dilaudid 2 Mg Injection) 1 mg IV Q6H PRN PRN PRN Reason: PAIN Stop: 08/03/19 22:54 Last Admin: 07/31/19 06:52 Dose: 1 mg Sodium Chloride (Sodium Chloride 0.9% 1000 Ml) 1,000 mls @ 100 mls/hr IV .Q10H [facility] Stop: 08/28/19 15:29 Last Admin: 07/31/19 06:52 Dose: 100 mls/hr Acyclovir Sodium 1,000 mg/ (Dextrose) 250 mls @ 250 mls/hr IV Q8H [facility] Stop: 08/29/19 01:59 Last Admin: 07/31/19 09:06 Dose: 250 mls/hr Insulin Aspart (Novolog Insulin) 0 unit SQ UD PRN Stop: 08/28/19 15:44 Last Admin: 07/30/19 21:19 Dose: 5 unit Metformin HCl (Glucophage 500 Mg) 500 mg PO TIDWM [facility] Stop: 08/29/19 07:59 Last Admin: 07/31/19 07:55 Dose: 500 mg Morphine Sulfate (Morphine Slip Box Changer 1 Mg/Ml 30 Ml) 0 mg IV UD PRN Stop: 08/03/19 15:26 Last Admin: 07/30/19 23:06 Dose: 30 mg Multivitamins Therapeutic (Theragran Multivitamin) 1 tab PO DAILY [facility] Stop: 08/29/19 09:59 Last Admin: 07/31/19 09:06 Dose: 1 tab Ondansetron HCl (Zofran 4 Mg/2 Ml Vial) 4 mg IV Q4H PRN PRN PRN Reason: NAUSEA/VOMITING Stop: 08/28/19 15:31 Pantoprazole Sodium (Protonix 40mg Tablet) 40 mg PO HS [facility] Stop: 08/28/19 21:59 Last Admin: 07/30/19 21:18 Dose: 40 mg Patient Own Med : Implanted Morphine Pump 0 each IJ DAILY [facility] Stop: 08/29/19 09:59 Last Admin: 07/31/19 09:07 Dose: 15.6 each Intake & Output 07/30/19 07/31/19 11:59 11:59 Intake Total 404 5308 Output Total 7892 5790 Balance 1249 -417 Weight 111.7 kg Code(s): G03.2 - BENIGN RECURRENT MENINGITIS [MOLLARET] (2) Cephalgia Current Visit: No Status: Acute Onset Date: ~11/01/18 Qualifiers: Headache type: unspecified Headache chronicity pattern: chronic headache Intractability: not intractable Qualified Code(s): R51 - Headache Code(s): R51 - HEADACHE (3) Paresthesia of both legs Current Visit: No Status: Chronic Code(s): R20.2 - PARESTHESIA OF SKIN (4) Type 2 diabetes mellitus Current Visit: No Status: Chronic
[2019-07-31] MEDS: Morphine PCA 1 MG/ML 30 ML IV PRN ×2 (13:12→18:17)
[2019-07-31] MEDS: NovoLOG Insulin SQ PRN ×2 (17:44→21:30)
[2019-07-31] MEDS: Protonix 40MG Tablet PO SCH (21:11)
[2019-07-31] MEDS: Vasotec 10 MG PO SCH (21:12)
[2019-08-01] MEDS: DEXTROSE IV SCH (02:07)
[2019-08-01] MEDS: WATER IV SCH (02:07)
[2019-08-01] MEDS: ZOVIRAX IV SCH (02:07)
[2019-08-01] MEDS: Sodium Chloride 0.9% 10 ML FLUSH Syringe IV PRN ×3 (02:08→05:01)
[2019-08-01] MEDS: Sodium Chloride 0.9% 1000 ML 1,000 ML IV SCH (03:07)
[2019-08-01] MEDS: DILAUDID 2 MG INJECTION IV PRN (03:45)
[2019-08-01] MEDS: Morphine PCA 1 MG/ML 30 ML IV PRN ×2 (04:12→04:35)
[2019-08-01] MEDS: solu-CORTEF 100MG IV SCH (05:01)
[2019-08-01 07:16] VITALS: BP 130/72; PULSE 87; O2SAT 96
[2019-08-01] MEDS: Glucophage 500 MG PO SCH (08:23)
--- NOTE | 2019-08-01 08:44 | PCM.DS ---
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 - Vitals & Intake/Output Vital Signs: Vital Signs Temperature 97.9 F 08/01/19 07:14 Pulse Rate 87 08/01/19 07:14 Respiratory Rate 08/01/19 07:14 Blood Pressure 130/72 08/01/19 07:14 O2 Sat by Pulse Oximetry 96 08/01/19 07:14 Intake & Output: Intake & Output 07/29/19 07/30/19 07/31/19 08/01/19 11:59 11:59 11:59 11:59 Intake Total 4049 5308 5057 Output Total 2800 5725 4720 Balance 1249 -417 337 Weight 111.7 kg - Lab Result Diagrams: 07/29/19 17:02 07/29/19 17:02 Lab Results-Last 24 Hrs: Accuchecks Date 08/01/19 Date 07/31/19 Time 07:30 Time 21:30 Accucheck Value: 111 Accucheck Value: 180 Accucheck Value: 155 Accucheck Value: 142 Micro Results-Entire Visit: Accuchecks Date 08/01/19 Date 07/31/19 Time 07:30 Time 21:30 Accucheck Value: 111 Accucheck Value: 180 Accucheck Value: 155 Accucheck Value: 142 Discharge Exam General Appearance: no apparent distress, obese Neurologic Exam: alert, oriented x 3 Neck Exam: normal inspection, non-tender, supple, full range of motion Respiratory Exam: normal breath sounds, lungs clear, No respiratory distress Cardiovascular Exam: regular rate/rhythm, normal heart sounds Gastrointestinal/Abdomen Exam: soft, No tenderness, No mass Final Diagnosis/Problem List - Final Discharge Diagnosis/Problem (1) 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: Acute Onset Date: ~11/01/18 Code(s): G03.2 - BENIGN RECURRENT MENINGITIS [MOLLARET] (2) Cephalgia Current Visit: No Status: Acute Onset Date: ~11/01/18 Code(s): R51 - HEADACHE - Discharge Disposition: Home, Self-Care Condition: Stable Prescriptions: New Acyclovir 400 mg PO TID #15 tablet Continue Enalapril Maleate 10 mg [Vasotec 10 MG] 20 mg PO HS Multivitamin [Multi-Vitamin Daily] 1 each PO DAILY Aspirin 81 mg PO DAILY Mineral Oil 30 ml PO TID Testosterone Cypionate 1.5 ml IM UD Duloxetine HCl [Cymbalta] 60 tab PO BID Prednisone 10 mg [Deltasone 10 mg] 15 mg PO DAILY Metformin HCl 500 mg [Glucophage 500 MG] 500 mg PO TIDAC Morphine Sulfate Cr 100 mg [Ms Contin 100 MG] 30 mg PO Q6H PRN PRN Reason: Pain PANTOPRAZOLE 40 mg Tablet [Protonix 40MG Tablet] 40 mg PO QPM Morphine Sulfate/Pf [Morphine 10 mg/10 ml Vial] 15.6 mg IJ DAILY Follow up with: ANN ALEXIS MD [Primary Care Provider] - 1 Week
== END 2019-08-01 09:20 | disposition home or self-care (01) | DRG 76 ==
LOC: MED SURG 15:13 → OBSVTOIN 07-30 15:30
PROVIDERS: ADMIT Family Medicine; ATTEND Family Medicine
DX: G03.2 Benign recurrent meningitis [Mollaret] (principal); R51 Headache; R20.2 Paresthesia of skin; E11.9 Type 2 diabetes mellitus without complications; Z79.899 Other long term (current) drug therapy
CPT/HCPCS: 36415; 80053; 81001; 82962; 85025; 94762; G0378; J0133; J1170; J1720; J2270; A9270-GY

== ENCOUNTER 2019-10-02 08:57 | Emergency (ER) | payer MEDICARE, BC ==
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
[2019-10-02] MEDS ORDERED: Rocephin 1000 MG INJ IM ONE (09:36)
[2019-10-02] MEDS ORDERED: Rocephin 1000 MG INJ ONE (09:45)
[2019-10-02] MEDS ORDERED: XYLOCAINE 1% HCL 20 ML MDV ONE (09:46)
[2019-10-02 09:49] VITALS: BP 137/100; PULSE 69; O2SAT 99
== END 2019-10-02 10:44 | disposition home or self-care (01) ==
LOC: ED 08:57
DX: J40 Bronchitis, not specified as acute or chronic (principal); J02.9 Acute pharyngitis, unspecified
CPT/HCPCS: 96372; 99284; J0696

== ENCOUNTER 2019-10-23 16:01 | Observation (INO) | payer BC ==
[2019-10-23] MEDS ORDERED: Sodium Chloride 0.9% 1000 ML 1,000 ML IV STA (18:03)
[2019-10-23] MEDS ORDERED: Zofran 4 MG/2 ML VIAL IV ONE (18:04)
[2019-10-23] MEDS ORDERED: Hydromorphone 1 mg/ml Ampule IV ONE (18:04)
[2019-10-23] MEDS ORDERED: Zovirax INJ*** 500 MG in D5w 100ML Mini Bag 100 ML 100 ML IV ONE (18:05)
[2019-10-23] MEDS ORDERED: solu-CORTEF 100MG IV ONE (18:06)
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
[2019-10-23] MEDS ORDERED: Sodium Chloride 0.9% 1000 ML 1,000 ML ONE (18:15)
[2019-10-23] MEDS ORDERED: Hydromorphone 1 mg/ml Ampule ONE (18:18)
[2019-10-23] MEDS ORDERED: Zofran 4 MG/2 ML VIAL ONE (18:18)
[2019-10-23] MEDS ORDERED: solu-CORTEF 100MG ONE (18:18)
[2019-10-23 18:29] LABS: Hematocrit 51.2 % (42-50); Hemoglobin 16.9 gm/dl (12.5-18.0); Mean Platelet Volume 9.7 fl (6-9.5); Platelet Count 402 K/mm3 (150-450); Red Blood Count 5.82 M/mm3 (4.1-5.6); Red Cell Distribution Width 16.1 % (11.5-14.0); White Blood Count 11.7 K/mm3 (4.0-10.5)
[2019-10-23 18:40] LABS: ALBUMIN 4.1 g/dL (3.5-5.0); ALKALINE PHOSPHATASE 95 U/L (38-126); ANION GAP 11.7 MEQ/L (5-15); BLOOD UREA NITROGEN 14 mg/dL (9-20); CHLORIDE 105 mmol/L (98-107); Calcium 9.3 mg/dL (8.4-10.2); Carbon Dioxide 26 mmol/L (22-30); Creatinine 1 0.85 mg/dL (0.66-1.25); Glucose 163 mg/dL (74-106); Potassium 4.7 mmol/L (3.5-5.1); SGOT/AST 35 U/L (17-59); SGPT/ALT 37 U/L (0-50); SODIUM 138 mmol/L (137-145); Total Protein 7.7 g/dL (6.3-8.2)
[2019-10-23 18:52] LABS: ATYPICAL LYMPHS 1 %; BAND 1 % (0.0-2.0); Eosinophil 1 % (0.00-3.0); Lymphocytes 11 % (24-44); Monocyte 7 % (0.0-12.0); Neutrophils 79 % (36.-66.); Platelet Estimate NORMAL (NORMAL); Total Cells Counted 100
[2019-10-23] MEDS: DILAUDID 2 MG INJECTION IV PRN (20:49)
[2019-10-23] MEDS: Cymbalta 30 MG Capsule PO SCH (21:59)
[2019-10-23] MEDS: Pepcid 20 MG PO SCH (22:00)
[2019-10-23] MEDS: Protonix 40MG Tablet PO SCH (22:00)
[2019-10-23] MEDS: Ms Contin 15 MG PO PRN (22:00)
[2019-10-23] MEDS: Vasotec 10 MG PO SCH (22:00)
[2019-10-23] MEDS: MINERAL OIL PO SCH (22:04)
[2019-10-24] MEDS: DILAUDID 2 MG INJECTION IV PRN ×2 (00:58→05:12)
[2019-10-24 04:53] LABS: Absolute Neutrophil Ct (ANC) 6.79 (1.4-6.9); BASOPHIL % 0.3 % (0.0-0.4); Basophil (Absolute #) 0.03 (0-0.4); Eosinophil % 0.7 % (0.00-5.0); Eosinophil (Absolute #) 0.08 (0-0.5); Hematocrit 47.1 % (42-50); Hemoglobin 15.2 gm/dl (12.5-18.0); Lymphocytes % 28.3 % (24.0-44.0); Mean Cell Volume 89.5 fl (78-100); Mean Corpuscular Hemoglobin 28.9 pg (26-32); Mean Corpuscular Hgb Concent. 32.3 g/dl (32-36); Mean Platelet Volume 9.5 fl (6-9.5); Monocyte (Absolute #) 1.21 (0.0-1.3); Monocytes % 10.7 % (0.0-12.0); Platelet Count 372 K/mm3 (150-450); Red Blood Count 5.26 M/mm3 (4.1-5.6); Red Cell Distribution Width 15.7 % (11.5-14.0); White Blood Count 11.3 K/mm3 (4.0-10.5)
[2019-10-24 05:10] LABS: ANION GAP 7.8 MEQ/L (5-15); BLOOD UREA NITROGEN 11 mg/dL (9-20); CHLORIDE 106 mmol/L (98-107); Calcium 9.1 mg/dL (8.4-10.2); Carbon Dioxide 28 mmol/L (22-30); Creatinine 1 0.89 mg/dL (0.66-1.25); Glucose 105 mg/dL (74-106); Potassium 4.2 mmol/L (3.5-5.1); SODIUM 137 mmol/L (137-145)
[2019-10-24] MEDS: Ms Contin 15 MG PO PRN ×3 (06:10→22:13)
[2019-10-24] MEDS ORDERED: DILAUDID 2 MG INJECTION IV PRN (06:58)
[2019-10-24] MEDS ORDERED: DILAUDID 2 MG INJECTION IV STA (06:59)
[2019-10-24] MEDS ORDERED: MEDICATION INTERVENTION MC SCH (07:45)
[2019-10-24] MEDS ORDERED: TESTOSTERONE CYPIONATE IM SCH (07:45)
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
[2019-10-24] MEDS: ZOVIRAX IV SCH ×3 (08:33→22:32)
[2019-10-24] MEDS: DEXTROSE IV SCH ×3 (08:33→22:32)
[2019-10-24] MEDS: WATER IV SCH ×3 (08:33→22:32)
[2019-10-24] MEDS: solu-CORTEF 100MG IV SCH ×3 (08:33→22:14)
[2019-10-24] MEDS: DELTASONE 10 MG PO SCH (09:56)
[2019-10-24] MEDS: Cymbalta 30 MG Capsule PO SCH ×2 (09:56→22:11)
[2019-10-24] MEDS: Acidophilus TABLET PO SCH (09:56)
[2019-10-24] MEDS: ECOTRIN 81 MG PO SCH (09:57)
[2019-10-24] MEDS: MINERAL OIL PO SCH ×3 (09:57→22:13)
[2019-10-24] MEDS: THERAGRAN MULTIVITAMIN PO SCH (09:57)
[2019-10-24] MEDS ORDERED: ACIDOPH PARACASEI B LACTIS PO SCH (10:00)
[2019-10-24] MEDS ORDERED: NON-FORMULARY ITEM (Aspirin [Aspirin] 81 MG) PO SCH (10:00)
[2019-10-24] MEDS ORDERED: NON-FORMULARY ITEM (Multivitamin [Multi-Vitamin Daily] 1 EACH) PO SCH (10:00)
[2019-10-24] MEDS: DILAUDID 1 MG/1ML PCA IV PRN (11:26)
[2019-10-24] MEDS: Glucophage 500 MG PO SCH ×2 (12:02→17:13)
[2019-10-24] MEDS ORDERED: Sodium Chloride 0.9% 500 ML 500 ML IV ONE (13:34)
[2019-10-24] MEDS ORDERED: Zovirax INJ IV SCH (14:00)
[2019-10-24] MEDS: Pepcid 20 MG PO SCH (22:11)
[2019-10-24] MEDS: Vasotec 10 MG PO SCH (22:12)
[2019-10-24] MEDS: Protonix 40MG Tablet PO SCH (22:12)
[2019-10-25] MEDS: solu-CORTEF 100MG IV SCH ×3 (05:03→22:00)
[2019-10-25] MEDS: DEXTROSE IV SCH ×3 (05:03→22:06)
[2019-10-25] MEDS: ZOVIRAX IV SCH ×3 (05:03→22:06)
[2019-10-25] MEDS: WATER IV SCH ×3 (05:03→22:06)
[2019-10-25] MEDS: Ms Contin 15 MG PO PRN ×3 (06:21→22:00)
[2019-10-25] MEDS: Glucophage 500 MG PO SCH ×3 (07:57→16:27)
[2019-10-25] MEDS: DELTASONE 10 MG PO SCH (09:43)
[2019-10-25] MEDS: Acidophilus TABLET PO SCH (09:43)
[2019-10-25] MEDS: Cymbalta 30 MG Capsule PO SCH ×2 (09:43→21:58)
[2019-10-25] MEDS: ECOTRIN 81 MG PO SCH (09:44)
[2019-10-25] MEDS: THERAGRAN MULTIVITAMIN PO SCH (09:44)
[2019-10-25] MEDS: MINERAL OIL PO SCH ×3 (09:44→21:59)
--- NOTE | 2019-10-25 11:25 | PCM.NOTE ---
Date and Time: 10/25/19 1122 Subjective Assessment: patient notes some improvement in his symptoms but still having significant headache and posterior neck pain. no fever or chills, he is tolerating po intake. Objective Exam General Appearance: no apparent distress, alert Neurologic Exam: alert, oriented x 3, cooperative, normal mood/affect, nml cerebellar function, sensation nml, No motor deficits Skin Exam: normal color, warm, dry Respiratory Exam: normal breath sounds, lungs clear, No respiratory distress Cardiovascular Exam: regular rate/rhythm, normal heart sounds Gastrointestinal/Abdomen Exam: soft, No tenderness, No mass Extremity Exam: normal inspection, normal range of motion OBJECTIVE DATA Vital Signs: Vital Signs - 24 hr Temp Pulse Resp BP Pulse Ox 10/25/19 10:28 98 10/25/19 09:52 95 10/25/19 07:25 98.3 F 84 18 129/87 97 10/25/19 06:28 94 L 10/25/19 03:31 97.9 F 96 H 20 135/81 98 10/25/19 03:26 98 10/25/19 00:00 98.3 F 97 H 22 113/68 96 10/24/19 23:26 96 10/24/19 19:35 98.1 F 113 H 20 135/83 96 10/24/19 19:26 96 10/24/19 16:00 98.7 F 104 H 16 116/71 93 L 10/24/19 15:26 95 10/24/19 14:46 96 10/24/19 12:00 99.4 F 89 18 115/72 92 L Pain Assessment - Last Documented Pain Intensity [Upper Back] 10 Pain Intensity 8 Pain Scale Used 0-10 Pain Scale Intake and Output: Intake & Output 10/22/19 10/23/19 10/24/19 10/25/19 11:59 11:59 11:59 11:59 Intake Total 1545 2020 Output Total 3125 2300 Balance -1580 -280 Weight 111.7 kg Assessment/Plan (1) 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: Acute Onset Date: ~11/01/18 Assessment & Plan: continue IV acyclovir, solu cortef and fluids. will likely be ready to discharge tomorrow or the next day. will resume all previous home meds when discharge with addition of acyclovir x 7 days and prednisone taper Code(s): G03.2 - BENIGN RECURRENT MENINGITIS [MOLLARET] (2) Cephalgia Current Visit: No Status: Acute Onset Date: ~11/01/18 Qualifiers: Code(s): R51 - HEADACHE
[2019-10-25] MEDS ORDERED: Sodium Chloride 0.9% 500 ML 500 ML IV ONE (15:53)
[2019-10-25] MEDS: Sodium Chloride 0.9% 500 ML 500 ML IV SCH (15:56)
[2019-10-25] MEDS: DILAUDID 1 MG/1ML PCA IV PRN (18:02)
[2019-10-25] MEDS: Pepcid 20 MG PO SCH (21:57)
[2019-10-25] MEDS: Vasotec 10 MG PO SCH (21:58)
[2019-10-25] MEDS: Protonix 40MG Tablet PO SCH (21:59)
[2019-10-26] MEDS: solu-CORTEF 100MG IV SCH ×3 (06:13→21:22)
[2019-10-26] MEDS: ZOVIRAX IV SCH ×3 (06:13→21:22)
[2019-10-26] MEDS: WATER IV SCH ×3 (06:13→21:22)
[2019-10-26] MEDS: DEXTROSE IV SCH ×3 (06:13→21:22)
[2019-10-26] MEDS: Ms Contin 15 MG PO PRN ×3 (06:14→22:27)
[2019-10-26] MEDS: Glucophage 500 MG PO SCH ×3 (08:14→16:42)
--- NOTE | 2019-10-26 08:15 | PCM.NOTE ---
Date and Time: 10/26/19813 Subjective Assessment: doing ok - Review of Systems Constitutional: No Fever, No Chills Eyes: No Symptoms Ears, Nose, & Throat: No Symptoms Respiratory: No Cough, No Short Of Breath Cardiac: No Chest Pain, No Edema, No Syncope Abdominal/Gastrointestinal: No Abdominal Pain, No Nausea, No Vomiting, No Diarrhea Genitourinary Symptoms: No Dysuria Musculoskeletal: No Back Pain, No Neck Pain Skin: No Rash Neurological: No Dizziness, No Focal Weakness, No Sensory Changes Psychological: No Symptoms Endocrine: No Symptoms Hematologic/Lymphatic: No Symptoms Immunological/Allergic: No Symptoms Objective Exam General Appearance: no apparent distress, alert Neurologic Exam: alert, oriented x 3, cooperative, normal mood/affect, nml cerebellar function, sensation nml, No motor deficits Skin Exam: normal color, warm, dry Eye Exam: PERRL, EOMI, eyes nml inspection Ears, Nose, Throat Exam: normal ENT inspection, pharynx normal, moist mucous membranes Neck Exam: normal inspection, non-tender, supple, full range of motion Respiratory Exam: normal breath sounds, lungs clear, No respiratory distress Cardiovascular Exam: regular rate/rhythm, normal heart sounds Gastrointestinal/Abdomen Exam: soft, No tenderness, No mass Extremity Exam: normal inspection, normal range of motion Back Exam: normal inspection, normal range of motion, No CVA tenderness, No vertebral tenderness Male Genitalia Exam: deferred Rectal Exam: deferred OBJECTIVE DATA Vital Signs: Vital Signs - 24 hr Temp Pulse Resp BP Pulse Ox 10/26/19 07:13 97 10/26/19 04:28 97.6 F 103 H 18 139/75 100 10/26/19 00:07 97.6 F 105 H 18 111/77 97 10/25/19 20:13 98.1 F 102 H 18 112/56 96 10/25/19 18:28 95 10/25/19 18:02 94 L 10/25/19 16:00 98.3 F 101 H 18 114/69 97 10/25/19 14:20 97 10/25/19 11:58 98.1 F 81 18 114/56 95 10/25/19 10:28 98 10/25/19 09:52 95 Pain Assessment - Last Documented Pain Intensity [Upper Back] 10 Pain Intensity 7 Pain Scale Used 0-10 Pain Scale Intake and Output: Intake & Output 10/23/19 10/24/19 10/25/19 10/26/19 11:59 11:59 11:59 11:59 Intake Total [id number] Output Total 8192 3964 9630 Balance -1580 -280 738 Weight 111.7 kg Assessment/Plan (1) Exacerbation of chronic back pain Current Visit: Yes Status: Acute Onset Date: ~11/01/18 Code(s): M54.9 - DORSALGIA, UNSPECIFIED; G89.29 - OTHER CHRONIC PAIN (2) 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: Acute Onset Date: ~11/01/18 Code(s): G03.2 - BENIGN RECURRENT MENINGITIS [MOLLARET]
[2019-10-26] MEDS: MINERAL OIL PO SCH ×3 (09:47→21:23)
[2019-10-26] MEDS: DELTASONE 10 MG PO SCH (09:49)
[2019-10-26] MEDS: THERAGRAN MULTIVITAMIN PO SCH (09:50)
[2019-10-26] MEDS: Acidophilus TABLET PO SCH (09:50)
[2019-10-26] MEDS: ECOTRIN 81 MG PO SCH (09:51)
[2019-10-26] MEDS: Cymbalta 30 MG Capsule PO SCH ×2 (09:51→21:22)
[2019-10-26] MEDS: Vasotec 10 MG PO SCH (21:23)
[2019-10-26] MEDS: Pepcid 20 MG PO SCH (21:23)
[2019-10-26] MEDS: Protonix 40MG Tablet PO SCH (21:23)
[2019-10-27] MEDS: Sodium Chloride 0.9% 500 ML 500 ML IV SCH (03:57)
[2019-10-27] MEDS: DEXTROSE IV SCH (05:40)
[2019-10-27] MEDS: solu-CORTEF 100MG IV SCH (05:40)
[2019-10-27] MEDS: ZOVIRAX IV SCH (05:40)
[2019-10-27] MEDS: WATER IV SCH (05:40)
[2019-10-27] MEDS: Ms Contin 15 MG PO PRN (06:10)
[2019-10-27] MEDS: Glucophage 500 MG PO SCH (07:39)
[2019-10-27] MEDS: MINERAL OIL PO SCH (09:28)
[2019-10-27] MEDS: Acidophilus TABLET PO SCH (09:28)
[2019-10-27] MEDS: Cymbalta 30 MG Capsule PO SCH (09:28)
[2019-10-27] MEDS: ECOTRIN 81 MG PO SCH (09:28)
[2019-10-27] MEDS: DELTASONE 10 MG PO SCH (09:28)
[2019-10-27] MEDS: THERAGRAN MULTIVITAMIN PO SCH (09:29)
[2019-10-27 10:36] VITALS: BP 128/78; PULSE 99; O2SAT 96
--- NOTE | 2019-10-28 10:10 | DS ---
DISCHARGE DIAGNOSIS: 1. VIRAL MENINGITIS. 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 He has been hospitalized on about a yearly basis beginning back in 2003. He generally has a hospital stay of 3-4 days on IV acyclovir which he has done. By this morning of 10/27/19, the patient is feeling much better and felt that he was able to be discharged home. We will discharge him home on his usual acyclovir 800 mg tid. He has a pain pump for pain relief and other home medications which he feels comfortable using at this time. We will now discharge him home with instructions to follow with Dr. Pardo in the office next week and call us if he has any further problems in the interim.
== END 2019-10-27 10:50 | disposition home or self-care (01) ==
LOC: ED 16:01 → MED SURG 19:35
PROVIDERS: ADMIT Family Medicine; ATTEND Family Medicine
DX: G03.2 Benign recurrent meningitis [Mollaret] (principal); R51 Headache; I10 Essential (primary) hypertension; E11.9 Type 2 diabetes mellitus without complications; M54.2 Cervicalgia; Z79.899 Other long term (current) drug therapy
CPT/HCPCS: 36415; 80048; 80053; 83605; 85025; 87040; 94762; 96365; 96374; 96375; 99284; G0378; J0133; J1170; J1720; J2405; A9270-GY

== ENCOUNTER 2019-11-16 13:05 | Observation (INO) | payer BC, MEDICARE ==
[2019-11-16] MEDS ORDERED: Hydromorphone 1 mg/ml Ampule IV ONE (13:54)
[2019-11-16] MEDS ORDERED: Zofran 4 MG/2 ML VIAL IV ONE (13:54)
[2019-11-16] MEDS ORDERED: Sodium Chloride 0.9% 1000 ML 1,000 ML IV STA (13:54)
[2019-11-16] MEDS ORDERED: solu-CORTEF 100MG IV ONE (13:55)
[2019-11-16] MEDS ORDERED: Zovirax INJ*** 500 MG in D5w 100ML Mini Bag 100 ML 100 ML IV ONE (13:56)
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
[2019-11-16] MEDS ORDERED: solu-CORTEF 100MG ONE (14:04)
[2019-11-16] MEDS ORDERED: Hydromorphone 1 mg/ml Ampule ONE (14:04)
[2019-11-16] MEDS ORDERED: Zofran 4 MG/2 ML VIAL ONE (14:04)
[2019-11-16] MEDS ORDERED: Sodium Chloride 0.9% 1000 ML 1,000 ML ONE (14:05)
[2019-11-16 14:12] LABS: Lactic Acid 3.8 (0.4-2.0)
--- NOTE | 2019-11-16 14:28 | XRAY ---
Indication: Cough. Comparison: October 10, 2019. PA/lateral chest again demonstrates normal heart and lungs with mild right hemidiaphragm elevation. Bony thorax intact again with mild degenerative changes. Impression: Stable nonacute chest with chronic features.
[2019-11-16] MEDS ORDERED: Zofran 4 MG/2 ML VIAL IV PRN (15:25)
[2019-11-16] MEDS ORDERED: MORPHINE SULFATE 4 MG INJ IV PRN (15:25)
[2019-11-16] MEDS: Sodium Chloride 0.9% 1000 ML 1,000 ML IV SCH (15:30)
--- NOTE | 2019-11-16 16:10 | PCM.HP ---
History of Present Illness - Chief Complaint Chief Complaint: MOLLARETT SYNDROME History of Present Illness: is a 49 year old male with recurrent aseptic meningitis and chronic pain syndrome on narcotics. He has a pain pump and sees pain management, he has had severe pain in his head and neck with chills and feeling feverish worsening over the last several days. He has no cough, no vomiting, no diarrhea, no objective fever. He often has flares of his recurrent aseptic meningitis requiring hospitalization, went to have labs this morning and felt much worse so came to ER. - Review of Systems Constitutional: Fever, Chills, Fatigue Eyes: No Symptoms Ears, Nose, & Throat: No Ear Pain, No Hearing Changes, No Throat Pain, No Throat Swelling, No Hoarse Respiratory: No Symptoms Cardiac: No Chest Pain, No Edema, No Syncope Abdominal/Gastrointestinal: No Abdominal Pain, No Nausea, No Vomiting, No Diarrhea Genitourinary Symptoms: No Dysuria Musculoskeletal: Back Pain, Myalgias Skin: No Rash Neurological: Headache, Lethargy, No Focal Weakness, No Seizure, No Sensory Changes, No Speech Changes, No Tremors Psychological: No Symptoms All Other Systems: Reviewed and Negative Medications & Allergies Home Medications: Home Medication List Aspirin 81 mg PO DAILY 01/24/14 [History Confirmed 11/16/19] Enalapril Maleate 10 mg [Vasotec 10 MG] 20 mg PO HS 01/24/14 [History Confirmed 11/16/19] Mineral Oil 30 ml PO TID 01/24/14 [History Confirmed 11/16/19] Multivitamin [Multi-Vitamin Daily] 1 each PO DAILY 01/24/14 [History Confirmed 11/16/19] Testosterone Cypionate 1.25 ml IM UD 10/09/14 [History Confirmed 11/16/19] Duloxetine HCl [Cymbalta] 60 mg PO BID 04/23/15 [History Confirmed 11/16/19] Prednisone 10 mg [Deltasone 10 mg] 15 mg PO DAILY 04/23/15 [History Confirmed 11/16/19] Metformin HCl 500 mg [Glucophage 500 MG] 500 mg PO TIDAC 01/20/16 [ History Confirmed 11/16/19] PANTOPRAZOLE 40 mg Tablet [Protonix 40MG Tablet] 40 mg PO QPM 11/02/18 [ History Confirmed 11/16/19] Morphine Sulfate/Pf [Morphine 10 mg/10 ml Vial] 15.6 mg IJ DAILY 07/29/19 [ History Confirmed 11/16/19] Famotidine [Pepcid] 40 mg PO HS 10/23/19 [History Confirmed 11/16/19] L.acidoph,Paracasei, B.lactis [Probiotic] 2 each PO DAILY 10/23/19 [History Confirmed 11/16/19] Morphine Sulfate Cr 30 mg [Ms Contin 30 mg] 30 mg PO Q8H PRN 10/23/19 [ History Confirmed 11/16/19] Allergies/Adverse Reactions: Allergies Allergy/AdvReac Type Severity Reaction Status Date / Time pregabalin [From Lyrica] AdvReac Severe Hives Verified 11/16/19 13:29 azithromycin [From Zmax] AdvReac Mild Verified 11/16/19 15:39 - Past Medical History Past Medical History: Yes Neurological History: Peripheral Neuropathy, Other ENT History: No Pertinent History Cardiac History: Hypertension Respiratory History: No Pertinent History Endocrine Medical History: No Pertinent History Musculoskelatal History: No Pertinent History GI Medical History: GERD History: No Pertinent History Pyscho-Social History: Depression Male Reproductive Disorders: No Pertinent History Comment: Mollaret's syndrome - Past Surgical History Past Surgical History: Yes Neuro Surgical History: No Pertinent History Cardiac History: No Pertinent History Respiratory Surgery: No Pertinent History GI Surgical History: Appendectomy Genitourinary Surgical Hx: No Pertinent History Musculskeletal Surgical Hx: No Pertinent History Male Surgical History: Vasectomy Other Surgical History: spleenectomy, repair of deviated septum X2 - Social History Smoking Status: Never smoker Exposure to second hand smoke: No Alcohol: Occasionally Drug Use: none Significant Family History: no pertinent family hx - Physical Exam Vital Signs: Vital Signs - 24 hr Temp Pulse Resp BP Pulse Ox 11/16/19 15:40 98.3 F 107 H 16 129/85 96 11/16/19 15:09 109 H 18 142/92 93 L 11/16/19 14:08 94 L 11/16/19 13:50 111 H 20 160/115 94 L General Appearance: mild distress (appears to be in pain, nontoxic appearing on exam), obese Neurologic Exam: alert, oriented x 3, cooperative, piece hand II-XII nml as tested, normal mood/affect, nml cerebellar function, No motor deficits, No sensory deficit, No agitation, No slurred speech Eye Exam: PERRL/EOMI, eyes nml inspection Neck Exam: normal inspection, non-tender, supple, full range of motion Respiratory Exam: normal breath sounds, lungs clear, No respiratory distress Cardiovascular Exam: regular rate/rhythm, normal heart sounds, normal peripheral pulses Gastrointestinal/Abdomen Exam: soft, normal bowel sounds, No tenderness, No mass Extremity Exam: normal inspection, normal range of motion, pelvis stable Skin Exam: normal color, warm, dry, No rash Results - Labs Lab/Micro Results: Lab Results-Last 24 Hours 11/16/19 Range/Units 14:06 Lactic Acid 3.8 H (0.4-2.0) - Radiology Impressions Radiology Exams & Impressions: Radiology Procedures Category Date Time Status CHEST 2 VIEWS (PA AND LAT) Stat Exams 11/16/19 14:16 Completed Assessment/Plan (1) 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: Acute Onset Date: ~11/01/18 Assessment & Plan: IV fluids, acyclovir and solu cortef ordered along with 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
[2019-11-16] MEDS: DILAUDID 1 MG/1ML PCA IV PRN (16:30)
[2019-11-16 16:38] LABS: Lactic Acid 2.4 (0.4-2.0)
[2019-11-16] MEDS ORDERED: PATIENT OWN MEDICATION IJ PRN (16:56)
[2019-11-16] MEDS: NovoLOG Insulin SQ PRN ×2 (17:31→21:31)
[2019-11-16] MEDS: Cymbalta 30 MG Capsule PO SCH (21:16)
[2019-11-16] MEDS: solu-CORTEF 100MG IV SCH (21:17)
[2019-11-16] MEDS: Pepcid 20 MG PO SCH (21:17)
[2019-11-16] MEDS: Protonix 40MG Tablet PO SCH (21:17)
[2019-11-16] MEDS: Ms Contin 15 MG PO SCH (21:17)
[2019-11-16] MEDS: Vasotec 10 MG PO SCH (21:18)
[2019-11-16] MEDS: ZOVIRAX IV SCH (21:31)
[2019-11-16] MEDS: WATER IV SCH (21:31)
[2019-11-16] MEDS: DEXTROSE IV SCH (21:31)
[2019-11-16] MEDS ORDERED: Zovirax INJ IV SCH (22:00)
[2019-11-16] MEDS ORDERED: NON-FORMULARY ITEM (Famotidine [Pepcid] 40 MG) PO SCH (22:00)
[2019-11-17] MEDS: Sodium Chloride 0.9% 1000 ML 1,000 ML IV SCH ×2 (01:50→12:08)
[2019-11-17 05:36] LABS: Hematocrit 44.3 % (42-50); Hemoglobin 14.5 gm/dl (12.5-18.0); Mean Cell Volume 89.3 fl (78-100); Mean Corpuscular Hemoglobin 29.2 pg (26-32); Mean Corpuscular Hgb Concent. 32.7 g/dl (32-36); Mean Platelet Volume 9.5 fl (7.5-11.0); Platelet Count 319 K/mm3 (150-450); Red Blood Count 4.96 M/mm3 (4.1-5.6); Red Cell Distribution Width 16.3 % (11.5-14.0); White Blood Count 11.9 K/mm3 (4.0-10.5)
[2019-11-17 05:38] LABS: BLOOD UREA NITROGEN 16 mg/dL (9-20); CHLORIDE 102 mmol/L (98-107); Calcium 8.4 mg/dL (8.4-10.2); Carbon Dioxide 28 mmol/L (22-30); Creatinine 1 0.89 mg/dL (0.66-1.25); Glucose 118 mg/dL (74-106); Potassium 4.3 mmol/L (3.5-5.1); SODIUM 136 mmol/L (137-145)
[2019-11-17] MEDS: WATER IV SCH ×2 (05:53→14:34)
[2019-11-17] MEDS: ZOVIRAX IV SCH ×2 (05:53→14:34)
[2019-11-17] MEDS: solu-CORTEF 100MG IV SCH ×2 (05:53→14:33)
[2019-11-17] MEDS: DEXTROSE IV SCH ×2 (05:53→14:34)
[2019-11-17] MEDS: Ms Contin 15 MG PO SCH ×2 (05:54→14:33)
[2019-11-17] MEDS: DILAUDID 1 MG/1ML PCA IV PRN (06:03)
[2019-11-17 06:12] LABS: Lymphocytes 23 % (24-44); Monocyte 7 % (0.0-12.0); Neutrophils 70 % (36.-66.); Platelet Estimate NORMAL (NORMAL); Total Cells Counted 100
--- NOTE | 2019-11-17 08:40 | PCM.NOTE ---
Date and Time: 11/17/19 0839 Subjective Assessment: patient is doing poorly still, hasn't seen much improvement yet but pain is improved with meds. Objective Exam General Appearance: mild distress Neurologic Exam: alert, oriented x 3, cooperative Skin Exam: normal color, warm, dry Respiratory Exam: normal breath sounds, lungs clear, No respiratory distress Cardiovascular Exam: regular rate/rhythm, normal heart sounds Gastrointestinal/Abdomen Exam: soft, No tenderness, No mass Extremity Exam: normal inspection, normal range of motion OBJECTIVE DATA Vital Signs: Vital Signs - 24 hr Temp Pulse Resp BP Pulse Ox 11/17/19 07:36 97.7 F 87 20 137/79 96 11/17/19 06:03 96 11/17/19 04:30 98 11/17/19 03:48 97.9 F 89 20 130/74 96 11/17/19 00:30 96 11/17/19 00:00 98.2 F 101 H 18 134/77 92 L 11/16/19 20:00 98.3 F 110 H 20 133/81 96 11/16/19 15:40 98.3 F 107 H 16 129/85 96 11/16/19 15:09 109 H 18 142/92 93 L 11/16/19 14:08 94 L 11/16/19 13:50 111 H 20 160/115 94 L Pain Assessment - Last Documented Pain Intensity [Generalized] 10 Pain Intensity 8 Pain Scale Used 0-10 Pain Scale Intake and Output: Intake & Output 11/14/19 11/15/19 11/16/19 11/17/19 11:59 11:59 11:59 11:59 Intake Total 2603 Output Total 1935 Balance 668 Weight 116.9 kg Lab Results: Accuchecks Date 11/16/19 Time 21:30 Accucheck Value: 205 Accucheck Value: 168 Lab Results-Last 24 Hours 11/16/19 11/16/19 11/16/19 Range/Units 14:00 14:06 16:34 WBC (4.0-10.5) K/mm3 RBC (4.1-5.6) M/mm3 Hgb (12.5-18.0) gm/dl Hct (42-50) % MCV (78-100) fl MCH (26-32) pg MCHC (32-36) g/dl RDW (11.5-14.0) % Plt Count (150-450) K/mm3 MPV (7.5-11.0) fl Segmented Neutrophils (36.-66.) % Lymphocytes (Manual) (24-44) % Monocytes (Manual) (0.0-12.0) % Platelet Estimate (NORMAL) RBC Morphology Sodium (137-145) mmol/L Potassium (3.5-5.1) mmol/L Chloride (98-107) mmol/L Carbon Dioxide (22-30) mmol/L Anion Gap (5-15) MEQ/L BUN (9-20) mg/dL Creatinine (0.66-1.25) mg/dL Estimated GFR ML/MIN Glucose (74-106) mg/dL Hemoglobin A1c 7.20 H (4.5-6.0) % Lactic Acid 3.8 H 2.4 H (0.4-2.0) Calcium (8.4-10.2) mg/dL 11/17/19 11/17/19 11/17/19 Range/Units 05:12 05:12 05:15 WBC 11.9 H (4.0-10.5) K/mm3 RBC 4.96 (4.1-5.6) M/mm3 Hgb 14.5 (12.5-18.0) gm/dl Hct 44.3 (42-50) % MCV 89.3 (78-100) fl MCH 29.2 (26-32) pg MCHC 32.7 (32-36) g/dl RDW 16.3 H (11.5-14.0) % Plt Count 319 (150-450) K/mm3 MPV 9.5 (7.5-11.0) fl Segmented Neutrophils 70 H (36.-66.) % Lymphocytes (Manual) 23 L (24-44) % Monocytes (Manual) 7 (0.0-12.0) % Platelet Estimate NORMAL (NORMAL) RBC Morphology NORMAL Sodium 136 L (137-145) mmol/L Potassium 4.3 (3.5-5.1) mmol/L Chloride 102 (98-107) mmol/L Carbon Dioxide 28 (22-30) mmol/L Anion Gap 10.0 (5-15) MEQ/L BUN 16 (9-20) mg/dL Creatinine 0.89 (0.66-1.25) mg/dL Estimated GFR > 60.0 ML/MIN Glucose 118 H (74-106) mg/dL Hemoglobin A1c (4.5-6.0) % Lactic Acid 1.1 (0.4-2.0) Calcium 8.4 (8.4-10.2) mg/dL Radiology Exams: Radiology Procedures Category Date Time Status CHEST 2 VIEWS (PA AND LAT) Stat Exams 11/16/19 14:16 Completed Assessment/Plan (1) 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: Acute Onset Date: ~11/01/18 Assessment & Plan: continue IV acyclovir, 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
[2019-11-17] MEDS: ENOXAPARIN SODIUM SQ SCH (09:09)
[2019-11-17] MEDS: Cymbalta 30 MG Capsule PO SCH (09:09)
[2019-11-17] MEDS: THERAGRAN MULTIVITAMIN PO SCH (09:09)
[2019-11-17] MEDS: ECOTRIN 81 MG PO SCH (09:10)
[2019-11-17] MEDS: MINERAL OIL PO SCH ×2 (09:10→17:19)
[2019-11-17] MEDS ORDERED: MORPHINE SULFATE IJ SCH (10:00)
[2019-11-17] MEDS ORDERED: NON-FORMULARY ITEM (Aspirin [Aspirin] 81 MG) PO SCH (10:00)
[2019-11-17] MEDS ORDERED: NON-FORMULARY ITEM (Multivitamin [Multi-Vitamin Daily] 1 EACH) PO SCH (10:00)
[2019-11-17] MEDS: NovoLOG Insulin SQ PRN (17:14)
[2019-11-17] MEDS: Pepcid 20 MG PO SCH (22:16)
[2019-11-18] MEDS: DILAUDID 1 MG/1ML PCA IV PRN (04:09)
[2019-11-18] MEDS: DEXTROSE IV SCH ×4 (06:00→22:01)
[2019-11-18] MEDS: ZOVIRAX IV SCH ×4 (06:00→22:01)
[2019-11-18] MEDS: WATER IV SCH ×4 (06:00→22:01)
[2019-11-18 06:17] LABS: Hematocrit 44.5 % (42-50); Hemoglobin 14.4 gm/dl (12.5-18.0); Mean Cell Volume 90.3 fl (78-100); Mean Corpuscular Hemoglobin 29.2 pg (26-32); Mean Corpuscular Hgb Concent. 32.4 g/dl (32-36); Mean Platelet Volume 9.6 fl (7.5-11.0); Platelet Count 336 K/mm3 (150-450); Red Blood Count 4.93 M/mm3 (4.1-5.6); Red Cell Distribution Width 16.5 % (11.5-14.0); White Blood Count 11.3 K/mm3 (4.0-10.5)
[2019-11-18 06:34] LABS: ANION GAP 7.4 MEQ/L (5-15); BLOOD UREA NITROGEN 13 mg/dL (9-20); CHLORIDE 102 mmol/L (98-107); Calcium 8.8 mg/dL (8.4-10.2); Carbon Dioxide 33 mmol/L (22-30); Creatinine 1 0.84 mg/dL (0.66-1.25); Glucose 138 mg/dL (74-106); SODIUM 137 mmol/L (137-145)
[2019-11-18 06:48] LABS: Potassium 4.8 mmol/L (3.5-5.1)
[2019-11-18 07:20] LABS: ANISOCYTOSIS 1+; ATYPICAL LYMPHS 3 %; BAND 2 % (0.0-2.0); Lymphocytes 28 % (24-44); Monocyte 4 % (0.0-12.0); Neutrophils 63 % (36.-66.); Platelet Estimate NORMAL (NORMAL); Total Cells Counted 100
[2019-11-18] MEDS: Sodium Chloride 0.9% 1000 ML 1,000 ML IV SCH ×3 (08:00→17:04)
--- NOTE | 2019-11-18 08:23 | PCM.NOTE ---
Date and Time: 11/18/19821 Subjective Assessment: patient is still having significant pain in his head and neck and feels sick, he is tolerating po intake, no fever, no vomiting Objective Exam General Appearance: no apparent distress, alert, obese Skin Exam: normal color, warm, dry Respiratory Exam: normal breath sounds, lungs clear, No respiratory distress Cardiovascular Exam: regular rate/rhythm, normal heart sounds Gastrointestinal/Abdomen Exam: soft, No tenderness, No mass OBJECTIVE DATA Vital Signs: Vital Signs - 24 hr Temp Pulse Resp BP Pulse Ox 11/18/19 07:24 97.4 F 80 22 167/95 98 11/18/19 04:00 97.7 F 74 20 140/84 97 11/17/19 16:24 98 F 94 H 16 120/72 97 11/17/19 12:36 98.4 F 87 22 127/78 95 11/17/19 12:30 95 11/17/19 10:26 94 L 11/17/19 10:03 95 11/17/19 08:30 96 Pain Assessment - Last Documented Pain Intensity [Generalized] 10 Pain Intensity 8 Pain Scale Used 0-10 Pain Scale Intake and Output: Intake & Output 11/15/19 11/16/19 11/17/19 11/18/19 11:59 11:59 11:59 11:59 Intake Total 2843 4826 Output Total 3241 5210 Balance 908 376 Weight 116.9 kg 118.1 kg Lab Results: Accuchecks Date 11/18/19 Date 11/17/19 Date 11/17/19 Date 11/17/19 Time 07:26 Time 21:30 Time 16:30 Time 11:30 Accucheck Value: 106 Accucheck Value: 303 Accucheck Value: 170 Accucheck Value: 140 Lab Results-Last 24 Hours 11/18/19 11/18/19 Range/Units 05:00 05:40 WBC 11.3 H (4.0-10.5) K/mm3 RBC 4.93 (4.1-5.6) M/mm3 Hgb 14.4 (12.5-18.0) gm/dl Hct 44.5 (42-50) % MCV 90.3 (78-100) fl MCH 29.2 (26-32) pg MCHC 32.4 (32-36) g/dl RDW 16.5 H (11.5-14.0) % Plt Count 336 (150-450) K/mm3 MPV 9.6 (7.5-11.0) fl Segmented Neutrophils 63 (36.-66.) % Band Neutrophils 2 (0.0-2.0) % Lymphocytes (Manual) 28 (24-44) % Monocytes (Manual) 4 (0.0-12.0) % Atypical Lymphocytes 3 % Platelet Estimate NORMAL (NORMAL) RBC Morphology ABNORMAL Anisocytosis 1+ Sodium 137 (137-145) mmol/L Potassium 4.8 (3.5-5.1) mmol/L Chloride 102 (98-107) mmol/L Carbon Dioxide 33 H (22-30) mmol/L Anion Gap 7.4 (5-15) MEQ/L BUN 13 (9-20) mg/dL Creatinine 0.84 (0.66-1.25) mg/dL Estimated GFR > 60.0 ML/MIN Glucose 138 H (74-106) mg/dL Calcium 8.8 (8.4-10.2) mg/dL Radiology Exams: Radiology Procedures Category Date Time Status CHEST 2 VIEWS (PA AND LAT) Stat Exams 11/16/19 14:16 Completed Assessment/Plan (1) 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: Acute Onset Date: ~11/01/18 Assessment & Plan: continue IV acyclovir, solu cortef and dilaudid para educator with IV fluids. slowly improving Code(s): G03.2 - BENIGN RECURRENT MENINGITIS [MOLLARET] (2) Cephalgia Current Visit: No Status: Acute Onset Date: ~11/01/18 Qualifiers: Code(s): R51 - HEADACHE (3) Type 2 diabetes mellitus Current Visit: No Status: Chronic
[2019-11-18] MEDS: ECOTRIN 81 MG PO SCH (08:42)
[2019-11-18] MEDS: Cymbalta 30 MG Capsule PO SCH ×3 (08:42→22:00)
[2019-11-18] MEDS: ENOXAPARIN SODIUM SQ SCH (08:42)
[2019-11-18] MEDS: THERAGRAN MULTIVITAMIN PO SCH (08:43)
[2019-11-18] MEDS: MINERAL OIL PO SCH ×4 (08:46→22:01)
[2019-11-18] MEDS: Protonix 40MG Tablet PO SCH ×2 (10:28→22:00)
[2019-11-18] MEDS: Ms Contin 15 MG PO SCH ×3 (10:28→21:59)
[2019-11-18] MEDS: solu-CORTEF 100MG IV SCH ×3 (10:29→21:59)
[2019-11-18] MEDS: Vasotec 10 MG PO SCH ×2 (10:29→22:00)
[2019-11-18] MEDS: NovoLOG Insulin SQ PRN (16:27)
[2019-11-18] MEDS: Pepcid 20 MG PO SCH (21:59)
[2019-11-19] MEDS: Sodium Chloride 0.9% 1000 ML 1,000 ML IV SCH ×2 (02:05→13:56)
[2019-11-19 04:56] LABS: Hematocrit 43.6 % (42-50); Hemoglobin 14.1 gm/dl (12.5-18.0); Mean Cell Volume 89.7 fl (78-100); Mean Corpuscular Hgb Concent. 32.3 g/dl (32-36); Mean Platelet Volume 9.8 fl (7.5-11.0); Platelet Count 342 K/mm3 (150-450); Red Blood Count 4.86 M/mm3 (4.1-5.6); Red Cell Distribution Width 16.5 % (11.5-14.0); White Blood Count 11.5 K/mm3 (4.0-10.5)
[2019-11-19 05:03] LABS: ALBUMIN 3.5 g/dL (3.5-5.0); ALKALINE PHOSPHATASE 69 U/L (38-126); ANION GAP 10.5 MEQ/L (5-15); BLOOD UREA NITROGEN 13 mg/dL (9-20); CHLORIDE 103 mmol/L (98-107); Calcium 8.4 mg/dL (8.4-10.2); Carbon Dioxide 29 mmol/L (22-30); Creatinine 1 0.75 mg/dL (0.66-1.25); Glucose 137 mg/dL (74-106); Potassium 3.9 mmol/L (3.5-5.1); SGOT/AST 23 U/L (17-59); SGPT/ALT 27 U/L (0-50); SODIUM 139 mmol/L (137-145); Total Protein 6.4 g/dL (6.3-8.2)
[2019-11-19 05:31] LABS: ATYPICAL LYMPHS 2 %; Lymphocytes 20 % (24-44); Monocyte 3 % (0.0-12.0); Neutrophils 75 % (36.-66.); Total Cells Counted 100
[2019-11-19 05:32] LABS: Platelet Estimate NORMAL (NORMAL); Poikilocytosis RARE; Targert Cells 1+
[2019-11-19] MEDS: Ms Contin 15 MG PO SCH ×3 (06:02→21:49)
[2019-11-19] MEDS: WATER IV SCH ×3 (06:05→21:49)
[2019-11-19] MEDS: ZOVIRAX IV SCH ×3 (06:05→21:49)
[2019-11-19] MEDS: DEXTROSE IV SCH ×3 (06:05→21:49)
[2019-11-19] MEDS: solu-CORTEF 100MG IV SCH ×3 (06:05→21:49)
--- NOTE | 2019-11-19 09:20 | PCM.NOTE ---
Date and Time: 11/19/19917 Subjective Assessment: No changes from yesterday, no new complaints, still with significant pain in head, in good spirits - Review of Systems Constitutional: Fatigue Eyes: No Symptoms Ears, Nose, & Throat: No Symptoms Respiratory: No Cough, No Short Of Breath Cardiac: No Chest Pain, No Edema, No Syncope Abdominal/Gastrointestinal: No Abdominal Pain, No Nausea, No Vomiting, No Diarrhea Genitourinary Symptoms: No Dysuria Skin: No Rash Neurological: Headache Psychological: No Symptoms Objective Exam General Appearance: no apparent distress, alert Neurologic Exam: alert, oriented x 3, cooperative Skin Exam: normal color, warm, dry Ears, Nose, Throat Exam: normal ENT inspection Respiratory Exam: normal breath sounds, lungs clear, No respiratory distress Cardiovascular Exam: regular rate/rhythm, normal heart sounds Gastrointestinal/Abdomen Exam: soft OBJECTIVE DATA Vital Signs: Vital Signs - 24 hr Temp Pulse Resp BP Pulse Ox 11/19/19 07:27 97.8 F 73 18 144/84 96 11/19/19 06:00 96 11/19/19 03:45 99.0 F 88 20 137/88 96 11/19/19 00:01 98.6 F 75 20 138/86 97 11/18/19 20:00 97.7 F 84 18 141/87 96 11/18/19 17:58 95 11/18/19 16:32 98.2 F 79 20 148/67 95 11/18/19 12:00 97.9 F 80 22 131/69 96 Pain Assessment - Last Documented Pain Intensity [Generalized] 10 Pain Intensity 7 Pain Scale Used 0-10 Pain Scale Intake and Output: Intake & Output 11/16/19 11/17/19 11/18/19 11/19/19 11:59 11:59 11:59 11:59 Intake Total 5867 8119 5122 Output Total 6717 5550 5250 Balance 908 -724 -81 Weight 116.9 kg 118.1 kg 119.2 kg Lab Results: Accuchecks Date 11/19/19 Date 11/18/19 Date 11/18/19 Date 11/18/19 Time 08:40 Time 22:00 Time 16:28 Time 11:44 Accucheck Value: 216 Accucheck Value: 278 Accucheck Value: 186 Lab Results-Last 24 Hours 11/19/19 11/19/19 Range/Units 04:56 04:56 WBC 11.5 H (4.0-10.5) K/mm3 RBC 4.86 (4.1-5.6) M/mm3 Hgb 14.1 (12.5-18.0) gm/dl Hct 43.6 (42-50) % MCV 89.7 (78-100) fl MCH 29.0 (26-32) pg MCHC 32.3 (32-36) g/dl RDW 16.5 H (11.5-14.0) % Plt Count 342 (150-450) K/mm3 MPV 9.8 (7.5-11.0) fl Segmented Neutrophils 75 H (36.-66.) % Lymphocytes (Manual) 20 L (24-44) % Monocytes (Manual) 3 (0.0-12.0) % Atypical Lymphocytes 2 % Platelet Estimate NORMAL (NORMAL) RBC Morphology ABNORMAL Poikilocytosis RARE Target Cells 1+ Sodium 139 (137-145) mmol/L Potassium 3.9 (3.5-5.1) mmol/L Chloride 103 (98-107) mmol/L Carbon Dioxide 29 (22-30) mmol/L Anion Gap 10.5 (5-15) MEQ/L BUN 13 (9-20) mg/dL Creatinine 0.75 (0.66-1.25) mg/dL Estimated GFR > 60.0 ML/MIN Glucose 137 H (74-106) mg/dL Calcium 8.4 (8.4-10.2) mg/dL Total Bilirubin 0.30 (0.2-1.3) mg/dL AST 23 (17-59) U/L ALT 27 (0-50) U/L Alkaline Phosphatase 69 (38-126) U/L Serum Total Protein 6.4 (6.3-8.2) g/dL Albumin 3.5 (3.5-5.0) g/dL Multi-Disciplinary Progress Notes: Multi-Disciplinary Progress Notes 11/18/19 10:26 Case Management Note by Kasie Garcia PATIENT CONTINUES TO DENY ANY NEEDS AT DC AT THIS TIME. PATIENT PLANS TO RETURN HOME TO HIS PRIOR LEVEL OF FUNCTIONING. Initialized on 11/18/19 10:26 - END OF NOTE Assessment/Plan (1) 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: Acute Onset Date: ~11/01/18 Assessment & Plan: continue current treatment plan Code(s): G03.2 - BENIGN RECURRENT MENINGITIS [MOLLARET]
[2019-11-19] MEDS: THERAGRAN MULTIVITAMIN PO SCH (09:31)
[2019-11-19] MEDS: MINERAL OIL PO SCH ×3 (09:31→21:50)
[2019-11-19] MEDS: ECOTRIN 81 MG PO SCH (09:31)
[2019-11-19] MEDS: ENOXAPARIN SODIUM SQ SCH (09:31)
[2019-11-19] MEDS: Cymbalta 30 MG Capsule PO SCH ×2 (09:31→21:49)
[2019-11-19] MEDS: DILAUDID 1 MG/1ML PCA IV PRN (14:05)
[2019-11-19] MEDS: NovoLOG Insulin SQ PRN (17:13)
[2019-11-19] MEDS: Pepcid 20 MG PO SCH (21:48)
[2019-11-19] MEDS: Protonix 40MG Tablet PO SCH (21:49)
[2019-11-19] MEDS: Vasotec 10 MG PO SCH (21:49)
[2019-11-20] MEDS: Sodium Chloride 0.9% 1000 ML 1,000 ML IV SCH ×2 (01:42→13:27)
[2019-11-20] MEDS: Ms Contin 15 MG PO SCH ×3 (05:37→21:13)
[2019-11-20] MEDS: solu-CORTEF 100MG IV SCH ×3 (05:37→21:06)
[2019-11-20] MEDS: ZOVIRAX IV SCH ×3 (05:38→21:27)
[2019-11-20] MEDS: WATER IV SCH ×3 (05:38→21:27)
[2019-11-20] MEDS: DEXTROSE IV SCH ×3 (05:38→21:27)
[2019-11-20] MEDS: Cymbalta 30 MG Capsule PO SCH ×2 (10:06→21:12)
[2019-11-20] MEDS: ENOXAPARIN SODIUM SQ SCH (10:07)
[2019-11-20] MEDS: MINERAL OIL PO SCH ×4 (10:07→21:15)
[2019-11-20] MEDS: THERAGRAN MULTIVITAMIN PO SCH (10:07)
[2019-11-20] MEDS: ECOTRIN 81 MG PO SCH (10:07)
--- NOTE | 2019-11-20 13:01 | PCM.NOTE ---
Date and Time: 11/20/19 1259 Subjective Assessment: Pt. reports feeling better today from yesterday, but still not improved enough that he may be discharged. - Review of Systems Constitutional: No Fever, No Chills Eyes: No Symptoms Ears, Nose, & Throat: No Symptoms Respiratory: No Cough, No Short Of Breath Cardiac: No Chest Pain, No Edema, No Syncope Abdominal/Gastrointestinal: No Abdominal Pain, No Nausea, No Vomiting, No Diarrhea Genitourinary Symptoms: No Dysuria Skin: No Rash Neurological: Headache Psychological: No Symptoms Objective Exam General Appearance: no apparent distress Neurologic Exam: alert, cooperative Skin Exam: normal color, warm, dry Eye Exam: EOMI, eyes nml inspection Ears, Nose, Throat Exam: normal ENT inspection Neck Exam: normal inspection Lymphatic Exam: No adenopathy Respiratory Exam: normal breath sounds Cardiovascular Exam: regular rate/rhythm Gastrointestinal/Abdomen Exam: soft OBJECTIVE DATA Vital Signs: Vital Signs - 24 hr Temp Pulse Resp BP Pulse Ox 11/20/19 11:59 98.3 F 61 18 126/85 95 11/20/19 07:43 97.7 F 65 18 141/70 97 11/20/19 05:50 98 11/20/19 04:15 98.1 F 67 20 137/82 98 11/19/19 23:39 98.4 F 72 18 134/86 96 11/19/19 20:08 97.7 F 72 18 133/67 97 11/19/19 17:42 92 L 11/19/19 16:00 97.8 F 80 18 146/79 96 Pain Assessment - Last Documented Pain Intensity [Generalized] 10 Pain Intensity 6 Pain Scale Used 0-10 Pain Scale Intake and Output: Intake & Output 11/18/19 11/19/19 11/20/19 11/21/19 11:59 11:59 11:59 11:59 Intake Total 8385 7463 4052 Output Total 7308 1218 2668 Balance -724 -44 088 Weight 118.1 kg 119.2 kg 120.2 kg Lab Results: Accuchecks Date 11/20/19 Date 11/20/19 Date 11/19/19 Date 11/19/19 Time 11:30 Time 08:00 Time 22:00 Time 16:30 Accucheck Value: 148 Accucheck Value: 129 Accucheck Value: 214 Accucheck Value: 235 Assessment/Plan (1) 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: Acute Onset Date: ~11/01/18 Assessment & Plan: Steadily but slowly improving, continue current treatment plan Code(s): G03.2 - BENIGN RECURRENT MENINGITIS [MOLLARET]
[2019-11-20] MEDS: NovoLOG Insulin SQ PRN ×2 (16:46→22:33)
[2019-11-20] MEDS: Protonix 40MG Tablet PO SCH (21:12)
[2019-11-20] MEDS: Pepcid 20 MG PO SCH (21:12)
[2019-11-20] MEDS: Vasotec 10 MG PO SCH (21:14)
[2019-11-21] MEDS: Sodium Chloride 0.9% 1000 ML 1,000 ML IV SCH (01:28)
[2019-11-21] MEDS: DILAUDID 1 MG/1ML PCA IV PRN (04:19)
[2019-11-21] MEDS: Ms Contin 15 MG PO SCH (06:17)
[2019-11-21] MEDS: solu-CORTEF 100MG IV SCH (06:17)
[2019-11-21] MEDS: WATER IV SCH (06:18)
[2019-11-21] MEDS: DEXTROSE IV SCH (06:18)
[2019-11-21] MEDS: ZOVIRAX IV SCH (06:18)
[2019-11-21 07:09] VITALS: BP 125/90; PULSE 64; O2SAT 98
--- NOTE | 2019-11-21 08:22 | PCM.DS ---
Discharge Summary Date of Admission: 11/16/19 15:18 Admitting Physician: ANN ALEXIS Primary Care Provider: ANN ALEXIS Allergies Allergies pregabalin [From Lyrica] Adverse Reaction (Severe, Verified 11/16/19 13:29) Hives SOB hives azithromycin [From Zmax] Adverse Reaction (Mild, Verified 11/16/19 15:39) vomiting Hospital Summary - Hospital Course Hospital Course: patient admitted with recurrent aseptic meningitis flare up of chronic condition , has improved with IV acyclovir, fluids and solu cortef. he is tolerating po, ambuating to the restroom independently and feels ready for discharge today. - Vitals & Intake/Output Vital Signs: Vital Signs Temperature 97.5 F 11/21/19 07:08 Pulse Rate 64 11/21/19 07:08 Respiratory Rate 11/21/19 07:08 Blood Pressure 125/90 11/21/19 07:08 O2 Sat by Pulse Oximetry 98 11/21/19 07:08 Intake & Output: Intake & Output 11/18/19 11/19/19 11/20/19 11/21/19 11:59 11:59 11:59 11:59 Intake Total 4826 5169 4938 4414 Output Total 5550 5259 1229 6824 Balance -724 -46 896 7099 Weight 118.1 kg 119.2 kg 120.2 kg 122 kg - Lab Result Diagrams: 11/19/19 04:56 11/19/19 04:56 Lab Results-Last 24 Hrs: Accuchecks Date 11/21/19 Date 11/20/19 Date 11/20/19 Time 07:30 Time 16:45 Time 11:30 Accucheck Value: 120 Accucheck Value: 187 Accucheck Value: 174 Accucheck Value: 148 Micro Results-Entire Visit: Microbiology 11/16/19 14:40 Blood Culture Gram Stain - Final Blood Not Reportable Blood Culture - Final NO GROWTH 11/16/19 14:30 Blood Culture Gram Stain - Final Blood Not Reportable Blood Culture - Final NO GROWTH Accuchecks Date 11/21/19 Date 11/20/19 Date 11/20/19 Time 07:30 Time 16:45 Time 11:30 Accucheck Value: 120 Accucheck Value: 187 Accucheck Value: 174 Accucheck Value: 148 Discharge Exam General Appearance: no apparent distress, obese Neurologic Exam: alert, oriented x 3, cooperative Neck Exam: normal inspection, non-tender, supple, full range of motion Respiratory Exam: normal breath sounds, lungs clear, No respiratory distress Cardiovascular Exam: regular rate/rhythm, normal heart sounds Gastrointestinal/Abdomen Exam: soft, No tenderness, No mass Skin Exam: normal color, warm, dry Final Diagnosis/Problem List - Final Discharge Diagnosis/Problem (1) 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: Acute Onset Date: ~11/01/18 Code(s): G03.2 - BENIGN RECURRENT MENINGITIS [MOLLARET] (2) Cephalgia Current Visit: No Status: Acute Onset Date: ~11/01/18 Code(s): R51 - HEADACHE (3) Type 2 diabetes mellitus Current Visit: No Status: Chronic - Discharge Disposition: Home, Self-Care Condition: Stable Prescriptions: New Acyclovir 400 mg PO TID #15 tablet Prednisone 20 mg [Deltasone 20 mg] 20 mg PO UD #18 tablet Continue Enalapril Maleate 10 mg [Vasotec 10 MG] 20 mg PO HS Multivitamin [Multi-Vitamin Daily] 1 each PO DAILY Aspirin 81 mg PO DAILY Mineral Oil 30 ml PO TID Testosterone Cypionate 1.25 ml IM UD Duloxetine HCl [Cymbalta] 60 mg PO BID Prednisone 10 mg [Deltasone 10 mg] 15 mg PO DAILY Metformin HCl 500 mg [Glucophage 500 MG] 500 mg PO TIDAC PANTOPRAZOLE 40 mg Tablet [Protonix 40MG Tablet] 40 mg PO QPM Morphine Sulfate/Pf [Morphine 10 mg/10 ml Vial] 15.6 mg IJ DAILY L.acidoph,Paracasei, B.lactis [Probiotic] 2 each PO DAILY Famotidine [Pepcid] 40 mg PO HS Morphine Sulfate Cr 30 mg [Ms Contin 30 mg] 30 mg PO Q8H PRN PRN Reason: Pain Follow up with: ANN ALEXIS MD [Primary Care Provider] - 1 Week
== END 2019-11-21 09:43 | disposition home or self-care (01) ==
LOC: ED 13:05 → MED SURG 15:18
PROVIDERS: ADMIT Family Medicine; ATTEND Family Medicine
DX: G03.2 Benign recurrent meningitis [Mollaret] (principal); R51 Headache; E11.9 Type 2 diabetes mellitus without complications; G89.4 Chronic pain syndrome; I10 Essential (primary) hypertension; Z79.899 Other long term (current) drug therapy
CPT/HCPCS: 36000; 36415; 71046; 80048; 80053; 82962; 83036; 83605; 85025; 87040; 96360; 96365; 96374; 96375; 99285; G0378; J0133; J1170; J1650; J1720; J2405; A9270-GY

== ENCOUNTER 2020-02-02 12:38 | Inpatient (IN) | payer MEDICARE, BC ==
[2020-02-02] MEDS ORDERED: Sodium Chloride 0.9% 1000 ML 1,000 ML IV STA ×2 (13:19→14:58)
[2020-02-02] MEDS ORDERED: Zofran 4 MG/2 ML VIAL IV ONE (13:20)
[2020-02-02] MEDS ORDERED: Hydromorphone 1 mg/ml Ampule IV ONE (13:20)
[2020-02-02] MEDS ORDERED: Zofran 4 MG/2 ML VIAL ONE (13:22)
[2020-02-02] MEDS ORDERED: Hydromorphone 1 mg/ml Ampule ONE (13:23)
[2020-02-02] MEDS ORDERED: Sodium Chloride 0.9% 1000 ML 1,000 ML ONE ×2 (13:23→15:11)
[2020-02-02 13:40] LABS: Hematocrit 48.6 % (42-50); Mean Cell Volume 88.7 fl (78-100); Mean Corpuscular Hemoglobin 29.2 pg (26-32); Mean Corpuscular Hgb Concent. 32.9 g/dl (32-36); Mean Platelet Volume 9.7 fl (7.5-11.0); Platelet Count 357 K/mm3 (150-450); Red Blood Count 5.48 M/mm3 (4.1-5.6); Red Cell Distribution Width 16.3 % (11.5-14.0); White Blood Count 17.3 K/mm3 (4.0-10.5)
[2020-02-02 13:50] LABS: ALBUMIN 3.9 g/dL (3.5-5.0); ALKALINE PHOSPHATASE 103 U/L (38-126); BLOOD UREA NITROGEN 7 mg/dL (9-20); CHLORIDE 101 mmol/L (98-107); Calcium 8.7 mg/dL (8.4-10.2); Carbon Dioxide 26 mmol/L (22-30); Creatinine 1 0.82 mg/dL (0.66-1.25); Glucose 125 mg/dL (74-106); Potassium 3.7 mmol/L (3.5-5.1); SGOT/AST 32 U/L (17-59); SGPT/ALT 49 U/L (0-50); SODIUM 139 mmol/L (137-145); Total Protein 7.1 g/dL (6.3-8.2)
[2020-02-02] MEDS ORDERED: solu-CORTEF 100MG IV ONE (14:20)
[2020-02-02] MEDS ORDERED: Zovirax INJ*** 500 MG in D5w 100ML Mini Bag 100 ML 100 ML IV ONE (14:20)
[2020-02-02] MEDS ORDERED: solu-CORTEF 100MG ONE (14:30)
[2020-02-02] MEDS ORDERED: TORAdol 30 mg Injection IV ONE (14:58)
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
[2020-02-02] MEDS ORDERED: Zofran 4 MG/2 ML VIAL IV PRN (15:00)
[2020-02-02] MEDS ORDERED: PHARMACY DOSING REQUIRED: DILAUDID PCA IV STA (15:00)
[2020-02-02 15:05] LABS: Appearance SLIGHTLY CLOUDY (CLEAR); Bilirubin NEGATIVE (NEGATIVE); Blood NEGATIVE Ery/ul (0-5); Glucose 50 mg/dL (NEGATIVE); Ketones NEGATIVE (NEGATIVE); Leukocyte Esterase NEGATIVE (NEGATIVE); Mucus MODERATE /HPF (NEGATIVE); Nitrite NEGATIVE (NEGATIVE); Protein,Urine Dip 30 (Negative); Specific Gravity 1.021 (1.005-1.025); Urobilinogen 2 mg/dL (0-1)
[2020-02-02] MEDS ORDERED: TORAdol 30 mg Injection ONE (15:11)
[2020-02-02 15:37] LABS: BAND 1 % (0.0-2.0); Lymphocytes 11 % (24-44); Monocyte 3 % (0.0-12.0); Neutrophils 85 % (36.-66.); Platelet Estimate NORMAL (NORMAL); Total Cells Counted 100
[2020-02-02] MEDS: Sodium Chloride 0.9% 1000 ML 1,000 ML IV SCH (16:13)
[2020-02-02] MEDS: DILAUDID 1 MG/1ML PCA IV PRN (16:15)
[2020-02-02] MEDS: HUMALOG SQ PRN ×2 (17:53→21:08)
[2020-02-02] MEDS: DEXTROSE IV SCH (21:06)
[2020-02-02] MEDS: solu-CORTEF 100MG IV SCH (21:06)
[2020-02-02] MEDS: Ms Contin 15 MG PO PRN (21:06)
[2020-02-02] MEDS: WATER IV SCH (21:06)
[2020-02-02] MEDS: ZOVIRAX IV SCH (21:06)
[2020-02-02] MEDS: Cymbalta 30 MG Capsule PO SCH (21:07)
[2020-02-02] MEDS: Pepcid 20 MG VIAL IV SCH (21:07)
[2020-02-02] MEDS: Vasotec 10 MG PO SCH (21:07)
[2020-02-02] MEDS: Protonix 40MG Tablet PO SCH (21:07)
[2020-02-02] MEDS: MINERAL OIL PO SCH (21:09)
[2020-02-02] MEDS ORDERED: Zovirax INJ IV SCH (22:00)
[2020-02-02] MEDS ORDERED: Pepcid 20 MG PO SCH (22:00)
[2020-02-03] MEDS: Sodium Chloride 0.9% 1000 ML 1,000 ML IV SCH ×3 (01:06→19:59)
[2020-02-03 04:53] LABS: Hematocrit 45.2 % (42-50); Hemoglobin 14.2 gm/dl (12.5-18.0); Mean Cell Volume 91.1 fl (78-100); Mean Corpuscular Hemoglobin 28.6 pg (26-32); Mean Corpuscular Hgb Concent. 31.4 g/dl (32-36); Mean Platelet Volume 9.6 fl (7.5-11.0); Platelet Count 341 K/mm3 (150-450); Red Blood Count 4.96 M/mm3 (4.1-5.6); Red Cell Distribution Width 16.6 % (11.5-14.0); White Blood Count 12.1 K/mm3 (4.0-10.5)
[2020-02-03 05:05] LABS: ALBUMIN 3.4 g/dL (3.5-5.0); ALKALINE PHOSPHATASE 83 U/L (38-126); ANION GAP 9.3 MEQ/L (5-15); BLOOD UREA NITROGEN 10 mg/dL (9-20); CHLORIDE 105 mmol/L (98-107); Calcium 8.1 mg/dL (8.4-10.2); Carbon Dioxide 27 mmol/L (22-30); Creatinine 1 0.88 mg/dL (0.66-1.25); Glucose 171 mg/dL (74-106); Potassium 4.3 mmol/L (3.5-5.1); SGOT/AST 26 U/L (17-59); SGPT/ALT 36 U/L (0-50); SODIUM 137 mmol/L (137-145); Total Protein 6.3 g/dL (6.3-8.2)
[2020-02-03] MEDS: Ms Contin 15 MG PO PRN ×3 (05:23→22:00)
[2020-02-03] MEDS: solu-CORTEF 100MG IV SCH ×3 (05:23→20:54)
[2020-02-03] MEDS: ZOVIRAX IV SCH ×3 (05:24→21:05)
[2020-02-03] MEDS: WATER IV SCH ×3 (05:24→21:05)
[2020-02-03] MEDS: DEXTROSE IV SCH ×3 (05:24→21:05)
[2020-02-03 05:37] LABS: Lymphocytes 16 % (24-44); Monocyte 3 % (0.0-12.0); Neutrophils 81 % (36.-66.); Total Cells Counted 100
[2020-02-03 05:38] LABS: Platelet Estimate NORMAL (NORMAL); Polychromasia 1+
[2020-02-03 05:39] LABS: ANISOCYTOSIS 1+
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
[2020-02-03] MEDS: Cymbalta 30 MG Capsule PO SCH ×2 (09:33→20:53)
[2020-02-03] MEDS: Acidophilus TABLET PO SCH (09:33)
[2020-02-03] MEDS: Pepcid 20 MG VIAL IV SCH ×2 (09:34→20:53)
[2020-02-03] MEDS: ECOTRIN 81 MG PO SCH (09:34)
[2020-02-03] MEDS: THERAGRAN MULTIVITAMIN PO SCH (09:34)
[2020-02-03] MEDS: PATIENT OWN MEDICATION SQ SCH ×2 (09:35→11:28)
[2020-02-03] MEDS: MINERAL OIL PO SCH ×3 (09:40→20:58)
[2020-02-03] MEDS ORDERED: MORPHINE SULFATE IJ SCH (10:00)
[2020-02-03] MEDS ORDERED: ACIDOPH PARACASEI B LACTIS PO SCH (10:00)
[2020-02-03] MEDS ORDERED: NON-FORMULARY ITEM (Multivitamin [Multi-Vitamin Daily] 1 EACH) PO SCH (10:00)
[2020-02-03] MEDS ORDERED: NON-FORMULARY ITEM (Aspirin [Aspirin] 81 MG) PO SCH (10:00)
[2020-02-03] MEDS: HUMALOG SQ PRN ×3 (11:57→21:11)
[2020-02-03] MEDS: DILAUDID 1 MG/1ML PCA IV PRN ×2 (17:53→22:01)
[2020-02-03] MEDS: Vasotec 10 MG PO SCH (20:53)
[2020-02-03] MEDS: Protonix 40MG Tablet PO SCH (20:53)
[2020-02-04] MEDS: Sodium Chloride 0.9% 1000 ML 1,000 ML IV SCH ×2 (04:30→13:27)
[2020-02-04] MEDS: Ms Contin 15 MG PO PRN ×3 (05:16→20:32)
[2020-02-04] MEDS: solu-CORTEF 100MG IV SCH ×3 (05:16→20:33)
[2020-02-04] MEDS: DEXTROSE IV SCH ×3 (05:17→20:39)
[2020-02-04] MEDS: ZOVIRAX IV SCH ×3 (05:17→20:39)
[2020-02-04] MEDS: WATER IV SCH ×3 (05:17→20:39)
[2020-02-04] MEDS: ECOTRIN 81 MG PO SCH (09:31)
[2020-02-04] MEDS: Pepcid 20 MG VIAL IV SCH ×2 (09:31→20:33)
[2020-02-04] MEDS: THERAGRAN MULTIVITAMIN PO SCH (09:31)
[2020-02-04] MEDS: Acidophilus TABLET PO SCH (09:31)
[2020-02-04] MEDS: Cymbalta 30 MG Capsule PO SCH ×2 (09:31→20:32)
[2020-02-04] MEDS: MINERAL OIL PO SCH ×3 (09:31→20:31)
--- NOTE | 2020-02-04 10:26 | PCM.NOTE ---
Date and Time: 02/04/20 1024 Subjective Assessment: patient still c/o terrible headache and neck pain, he does not feel he will be able to manage his pain at home, he denies any cough or shortness of breath at this time. Objective Exam General Appearance: mild distress, alert Neurologic Exam: alert, oriented x 3, cooperative Skin Exam: normal color, warm, dry Respiratory Exam: normal breath sounds, lungs clear, No respiratory distress Cardiovascular Exam: regular rate/rhythm, normal heart sounds Gastrointestinal/Abdomen Exam: soft, No tenderness, No mass Extremity Exam: normal inspection, normal range of motion OBJECTIVE DATA Vital Signs: Vital Signs - 24 hr Temp Pulse Resp BP Pulse Ox 02/04/20 07:17 97.8 F 81 18 128/78 97 02/04/20 06:01 96 02/04/20 04:46 97.8 F 80 18 122/72 96 02/04/20 02:01 95 02/03/20 23:54 98.2 F 91 H 20 150/82 93 L 02/03/20 22:01 94 L 02/03/20 21:53 98 02/03/20 19:48 98.1 F 95 H 19 136/77 94 L 02/03/20 17:55 96 02/03/20 17:53 96 02/03/20 16:00 98.7 F 82 16 126/79 96 02/03/20 15:00 95 02/03/20 11:17 97.8 F 93 H 18 121/82 95 Pain Assessment - Last Documented Pain Intensity 8 Pain Scale Used 0-10 Pain Scale Intake and Output: Intake & Output 02/01/20 02/02/20 02/03/20 02/04/20 11:59 11:59 11:59 11:59 Intake Total 4739 5658 Output Total 4100 5740 Balance 639 1958 Weight 119.1 kg 119 kg Lab Results: Accuchecks Date 02/04/20 Date 02/03/20 Date 02/03/20 Date 02/03/20 Time 07:30 Time 21:00 Time 16:30 Time 11:30 Accucheck Value: 95 Accucheck Value: 185 Accucheck Value: 197 Accucheck Value: 188 Assessment/Plan (1) 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: Acute Onset Date: ~11/01/18 Assessment & Plan: continue IV steroids, acyclovir, 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
[2020-02-04] MEDS: Vasotec 10 MG PO SCH (20:32)
[2020-02-04] MEDS: Protonix 40MG Tablet PO SCH (20:33)
[2020-02-04] MEDS: HUMALOG SQ PRN (20:34)
[2020-02-04] MEDS ORDERED: Haldol 5 MG IM ONE (23:48)
[2020-02-05 04:12] VITALS: PULSE 73
[2020-02-05] MEDS: Sodium Chloride 0.9% 1000 ML 1,000 ML IV SCH (05:31)
[2020-02-05] MEDS: ZOVIRAX IV SCH (05:34)
[2020-02-05] MEDS: DEXTROSE IV SCH (05:34)
[2020-02-05] MEDS: WATER IV SCH (05:34)
[2020-02-05] MEDS: solu-CORTEF 100MG IV SCH (05:34)
[2020-02-05] MEDS: Ms Contin 15 MG PO PRN (05:39)
--- NOTE | 2020-02-05 08:34 | PCM.DS ---
Discharge Summary Date of Admission: 02/03/20 08:42 Admitting Physician: ANN ALEXIS Primary Care Provider: ANN ALEXIS Allergies Allergies pregabalin [From Lyrica] Adverse Reaction (Severe, Verified 02/02/20 13:05) Hives SOB hives azithromycin [From Zmax] Adverse Reaction (Mild, Verified 02/02/20 13:05) vomiting Hospital Summary - Hospital Course Hospital Course: patient was admitted with headache, neck pain and fatigue. 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 he has had no fever, no neuro deficits. he has received IV acyclovir, fluids and IV steroids and is feeling much better at the time of discharge. - Vitals & Intake/Output Vital Signs: Vital Signs Temperature 97.8 F 02/05/20 04:00 Pulse Rate 73 02/05/20 04:00 Respiratory Rate 20 02/05/20 04:00 Blood Pressure 132/74 02/05/20 04:00 O2 Sat by Pulse Oximetry 97 02/05/20 04:00 Intake & Output: Intake & Output 02/02/20 02/03/20 02/04/20 02/05/20 11:59 11:59 11:59 11:59 Intake Total 4739 5658 2260 Output Total 4100 3700 1350 Balance 639 1958 910 Weight 119.1 kg 119 kg 123 kg - Lab Result Diagrams: 02/03/20 04:30 02/03/20 04:30 Lab Results-Last 24 Hrs: Accuchecks Date 02/04/20 Date 02/04/20 Date 02/04/20 Time 20:00 Time 16:30 Time 11:30 Accucheck Value: 243 Accucheck Value: 131 Accucheck Value: 193 Micro Results-Entire Visit: Microbiology 02/02/20 13:50 Blood Culture - Preliminary Blood NO GROWTH TO DATE 02/02/20 13:38 Blood Culture - Preliminary Blood NO GROWTH TO DATE Accuchecks Date 02/04/20 Date 02/04/20 Date 02/04/20 Time 20:00 Time 16:30 Time 11:30 Accucheck Value: 243 Accucheck Value: 131 Accucheck Value: 193 Discharge Exam General Appearance: no apparent distress, obese Eye Exam: PERRL, EOMI Respiratory Exam: normal breath sounds, lungs clear, No respiratory distress Cardiovascular Exam: regular rate/rhythm, normal heart sounds Gastrointestinal/Abdomen Exam: soft, No tenderness, No mass Extremity Exam: normal inspection, normal range of motion Skin Exam: normal color, warm, dry Final Diagnosis/Problem List - Final Discharge Diagnosis/Problem (1) 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: Acute Onset Date: ~11/01/18 Code(s): G03.2 - BENIGN RECURRENT MENINGITIS [MOLLARET] (2) Cephalgia Current Visit: No Status: Acute Onset Date: ~11/01/18 Code(s): R51 - HEADACHE (3) Type 2 diabetes mellitus Current Visit: No Status: Chronic - Discharge Disposition: Home, Self-Care Condition: Stable Prescriptions: Continue Enalapril Maleate 10 mg [Vasotec 10 MG] 20 mg PO HS Multivitamin [Multi-Vitamin Daily] 1 each PO DAILY Aspirin 81 mg PO DAILY Mineral Oil 30 ml PO TID Testosterone Cypionate 1.25 ml IM UD Duloxetine HCl [Cymbalta] 60 mg PO BID Prednisone 10 mg [Deltasone 10 mg] 15 mg PO DAILY PANTOPRAZOLE 40 mg Tablet [Protonix 40MG Tablet] 40 mg PO QPM Morphine Sulfate/Pf [Morphine 10 mg/10 ml Vial] 15.6 mg IJ DAILY L.acidoph,Paracasei, B.lactis [Probiotic] 2 each PO DAILY Famotidine [Pepcid] 40 mg PO HS Morphine Sulfate Cr 30 mg [Ms Contin 30 mg] 30 mg PO Q8H PRN PRN Reason: Pain Acyclovir 400 mg PO TID #15 tablet Metformin HCl Xr 500 mg [Glucophage XR 500 MG] 1,000 mg PO DINNER Follow up with: ANN ALEXIS MD [Primary Care Provider] -
[2020-02-05] MEDS: ECOTRIN 81 MG PO SCH (08:48)
[2020-02-05] MEDS: Acidophilus TABLET PO SCH (08:48)
[2020-02-05] MEDS: Cymbalta 30 MG Capsule PO SCH (08:48)
[2020-02-05] MEDS: Pepcid 20 MG VIAL IV SCH (08:49)
[2020-02-05] MEDS: PATIENT OWN MEDICATION SQ SCH (08:49)
[2020-02-05] MEDS: THERAGRAN MULTIVITAMIN PO SCH (08:49)
[2020-02-05] MEDS: MINERAL OIL PO SCH (08:49)
[2020-02-05 09:11] VITALS: BP 125/84
[2020-02-05 10:26] VITALS: O2SAT 96
== END 2020-02-05 10:05 | disposition home or self-care (01) | DRG 76 ==
LOC: ED 12:38 → MED SURG 14:53 → OBSVTOIN 02-03 08:42
PROVIDERS: ADMIT Family Medicine; ATTEND Family Medicine
DX: G03.2 Benign recurrent meningitis [Mollaret] (principal); M54.2 Cervicalgia; R51 Headache; R53.83 Other fatigue; R53.81 Other malaise; I10 Essential (primary) hypertension; E11.9 Type 2 diabetes mellitus without complications; Z79.899 Other long term (current) drug therapy; K21.9 Gastro-esophageal reflux disease without esophagitis
CPT/HCPCS: 36000; 36415; 80053; 81001; 82962; 83605; 85025; 87040; 96374; 96375; 99284; G0378; J0133; J1170; J1720; J1817; J1885; J2405; A9270-GY

== ENCOUNTER 2020-04-20 16:33 | Inpatient (IN) | payer MEDICARE, BC ==
[2020-04-20] MEDS ORDERED: Lactated Ringers 1,000 ML IV ONE (22:13)
[2020-04-20] MEDS ORDERED: Zofran 4 MG/2 ML VIAL IV PRN (22:25)
[2020-04-20 22:34] LABS: Appearance CLEAR (CLEAR); Bilirubin NEGATIVE (NEGATIVE); Blood NEGATIVE Ery/ul (0-5); Glucose >=500 mg/dL (NEGATIVE); Ketones TRACE (NEGATIVE); Leukocyte Esterase NEGATIVE (NEGATIVE); Mucus SLIGHT /HPF (NEGATIVE); Nitrite NEGATIVE (NEGATIVE); Protein,Urine Dip NEGATIVE (Negative); Specific Gravity 1.025 (1.005-1.025); Urobilinogen NEGATIVE mg/dL (0-1)
[2020-04-20 22:50] LABS: Absolute Neutrophil Ct (ANC) 8.13 (1.4-6.9); BASOPHIL % 0.3 % (0.0-0.4); Basophil (Absolute #) 0.03 (0-0.4); Eosinophil % 0.5 % (0.00-5.0); Eosinophil (Absolute #) 0.06 (0-0.5); Hematocrit 50.4 % (42-50); Hemoglobin 16.7 gm/dl (12.5-18.0); Lymphocyte (Absolute #) 2.21 (1.0-4.6); Lymphocytes % 19.5 % (24.0-44.0); Mean Cell Volume 86.3 fl (78-100); Mean Corpuscular Hemoglobin 28.6 pg (26-32); Mean Corpuscular Hgb Concent. 33.1 g/dl (32-36); Mean Platelet Volume 10.1 fl (7.5-11.0); Monocytes % 7.9 % (0.0-12.0); Neutrophil % 71.8 % (36.0-66.0); Platelet Count 377 K/mm3 (150-450); Red Blood Count 5.84 M/mm3 (4.1-5.6); Red Cell Distribution Width 16.3 % (11.5-14.0); White Blood Count 11.3 K/mm3 (4.0-10.5)
[2020-04-20 22:58] LABS: ALBUMIN 4.2 g/dL (3.5-5.0); ALKALINE PHOSPHATASE 137 U/L (38-126); ANION GAP 15.8 MEQ/L (5-15); BLOOD UREA NITROGEN 11 mg/dL (9-20); CHLORIDE 100 mmol/L (98-107); Calcium 9.1 mg/dL (8.4-10.2); Carbon Dioxide 24 mmol/L (22-30); Creatinine 1 0.74 mg/dL (0.66-1.25); Glucose 227 mg/dL (74-106); Potassium 4.6 mmol/L (3.5-5.1); SGOT/AST 43 U/L (17-59); SGPT/ALT 42 U/L (0-50); SODIUM 136 mmol/L (137-145); Total Protein 7.6 g/dL (6.3-8.2)
[2020-04-20] MEDS: DILAUDID 1 MG/1ML PCA IV PRN (23:13)
[2020-04-21] MEDS: Lactated Ringers 1,000 ML IV SCH ×3 (00:09→22:03)
[2020-04-21] MEDS: solu-CORTEF 100MG IV SCH ×5 (00:11→22:05)
[2020-04-21] MEDS: Zovirax INJ IV SCH ×2 (00:11→09:19)
[2020-04-21 07:06] LABS: ANION GAP 13.4 MEQ/L (5-15); BLOOD UREA NITROGEN 9 mg/dL (9-20); CHLORIDE 100 mmol/L (98-107); Calcium 8.7 mg/dL (8.4-10.2); Carbon Dioxide 26 mmol/L (22-30); Creatinine 1 0.68 mg/dL (0.66-1.25); Glucose 159 mg/dL (74-106); Potassium 4.6 mmol/L (3.5-5.1); SODIUM 135 mmol/L (137-145)
[2020-04-21] MEDS: ZOVIRAX IV SCH ×3 (08:07→22:17)
[2020-04-21] MEDS: WATER IV SCH ×3 (08:07→22:17)
[2020-04-21] MEDS: DEXTROSE IV SCH ×3 (08:07→22:17)
[2020-04-21] MEDS: MSIR 15 MG PO SCH ×3 (13:29→22:04)
[2020-04-21] MEDS ORDERED: PATIENT OWN MEDICATION IJ SCH (14:45)
[2020-04-21] MEDS: Acidophilus TABLET PO SCH (15:07)
[2020-04-21] MEDS: DELTASONE 5 MG PO SCH (15:08)
[2020-04-21] MEDS: ECOTRIN 81 MG PO SCH (15:08)
[2020-04-21] MEDS: Cymbalta 30 MG Capsule PO SCH ×2 (15:08→22:04)
[2020-04-21] MEDS: MINERAL OIL PO SCH ×2 (15:08→22:04)
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
[2020-04-21] MEDS ORDERED: NON-FORMULARY ITEM (Famotidine [Pepcid] 40 MG) PO SCH (22:00)
[2020-04-21] MEDS: Protonix 40MG Tablet PO SCH (22:05)
[2020-04-21] MEDS: Pepcid 20 MG PO SCH (22:05)
[2020-04-21] MEDS: Vasotec 10 MG PO SCH (22:05)
[2020-04-22] MEDS: DEXTROSE IV SCH ×3 (06:03→22:15)
[2020-04-22] MEDS: solu-CORTEF 100MG IV SCH ×3 (06:03→22:06)
[2020-04-22] MEDS: ZOVIRAX IV SCH ×3 (06:03→22:15)
[2020-04-22] MEDS: WATER IV SCH ×3 (06:03→22:15)
[2020-04-22] MEDS: MSIR 15 MG PO SCH ×3 (06:19→17:53)
[2020-04-22] MEDS: Lactated Ringers 1,000 ML IV SCH ×3 (07:33→15:30)
[2020-04-22] MEDS: Cymbalta 30 MG Capsule PO SCH ×2 (09:08→22:05)
[2020-04-22] MEDS: DELTASONE 5 MG PO SCH (09:08)
[2020-04-22] MEDS: ECOTRIN 81 MG PO SCH (09:08)
[2020-04-22] MEDS: Acidophilus TABLET PO SCH (09:08)
[2020-04-22] MEDS: ENOXAPARIN SODIUM SQ SCH (09:08)
[2020-04-22] MEDS: MINERAL OIL PO SCH ×3 (09:09→22:06)
[2020-04-22] MEDS ORDERED: MORPHINE SULFATE IJ SCH (10:00)
[2020-04-22] MEDS ORDERED: ACIDOPH PARACASEI B LACTIS PO SCH (10:00)
[2020-04-22] MEDS ORDERED: NON-FORMULARY ITEM (Aspirin [Aspirin] 81 MG) PO SCH (10:00)
[2020-04-22] MEDS: DILAUDID 1 MG/1ML PCA IV PRN ×2 (14:24→14:48)
--- NOTE | 2020-04-22 16:14 | PCM.NOTE ---
Date and Time: 04/22/20 1611 Subjective Assessment: Pt is feeling better today. Pain is 7-8 with pain meds. He is tolerating po. Still can't sleep but states the first couple of days of an episode that is usual - thinks he may be able to sleep tonight, however. - Review of Systems Constitutional: No Fever Neurological: Headache Objective Exam General Appearance: mild distress, alert Neurologic Exam: oriented x 3, cooperative Skin Exam: normal color, warm, dry, No rash Ears, Nose, Throat Exam: moist mucous membranes Neck Exam: normal inspection Respiratory Exam: normal breath sounds, lungs clear, No crackles/rales, No rhonchi, No wheezing Cardiovascular Exam: regular rate/rhythm, normal heart sounds, No murmur Extremity Exam: normal inspection, No swelling OBJECTIVE DATA Vital Signs: Vital Signs - 24 hr Temp Pulse Resp BP Pulse Ox 04/22/20 15:13 97 04/22/20 14:48 97 04/22/20 12:00 98.5 F 92 H 20 131/84 97 04/22/20 11:13 95 04/22/20 08:00 98 F 92 H 18 119/74 95 04/22/20 07:13 95 04/22/20 04:20 97 04/22/20 04:00 97.9 F 85 17 122/80 97 04/22/20 03:13 97 04/22/20 00:00 98.1 F 99 H 16 134/76 93 L 04/21/20 23:13 93 L 04/21/20 21:29 92 L 04/21/20 20:00 98.2 F 100 H 16 136/82 93 L 04/21/20 19:13 93 L Pain Assessment - Last Documented Pain Intensity 7 Pain Scale Used 0-10 Pain Scale Intake and Output: Intake & Output 04/20/20 04/21/20 04/22/20 04/23/20 11:59 11:59 11:59 11:59 Intake Total 2065 4026 1440 Output Total 1075 2975 700 Balance 990 1051 740 Weight 111.1 kg Lab Results: Accuchecks Date 04/22/20 Time 12:23 Accucheck Value: 148 Accucheck Value: 174 Accucheck Value: 143 Accucheck Value: 177 Assessment/Plan (1) Mollaret's syndrome (benign recurrent meningitis) Current Visit: No Status: Chronic Onset Date: ~11/01/18 Assessment & Plan: He is on his usual treatment of acyclovir, solumedrol and dilaudid [employer] (in addition to his home morphine and pain pump). He is usually admitted 4-5 days. He would certainly like to go home as soon as he could as his children are coming to visit. From past visits it looks as though he goes home on po acyclovir (unsure about the steroid). 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
[2020-04-22] MEDS: Vasotec 10 MG PO SCH (22:06)
[2020-04-22] MEDS: Protonix 40MG Tablet PO SCH (22:06)
[2020-04-22] MEDS: Pepcid 20 MG PO SCH (22:06)
[2020-04-23] MEDS: MSIR 15 MG PO SCH ×4 (00:10→17:34)
[2020-04-23] MEDS: HUMALOG SQ PRN ×2 (00:22→22:27)
[2020-04-23] MEDS: Lactated Ringers 1,000 ML IV SCH ×3 (01:36→22:11)
[2020-04-23 05:17] LABS: BASOPHIL % 0.2 % (0.0-0.4); Basophil (Absolute #) 0.02 (0-0.4); Eosinophil % 0.1 % (0.00-5.0); Eosinophil (Absolute #) 0.01 (0-0.5); Hematocrit 46.8 % (42-50); Hemoglobin 14.8 gm/dl (12.5-18.0); Lymphocyte (Absolute #) 2.28 (1.0-4.6); Lymphocytes % 18.1 % (24.0-44.0); Mean Cell Volume 88.8 fl (78-100); Mean Corpuscular Hemoglobin 28.1 pg (26-32); Mean Corpuscular Hgb Concent. 31.6 g/dl (32-36); Mean Platelet Volume 9.8 fl (7.5-11.0); Monocyte (Absolute #) 0.89 (0.0-1.3); Monocytes % 7.1 % (0.0-12.0); Neutrophil % 74.5 % (36.0-66.0); Platelet Count 362 K/mm3 (150-450); Red Blood Count 5.27 M/mm3 (4.1-5.6); Red Cell Distribution Width 16.5 % (11.5-14.0); White Blood Count 12.6 K/mm3 (4.0-10.5)
[2020-04-23 05:43] LABS: ANION GAP 10.5 MEQ/L (5-15); BLOOD UREA NITROGEN 11 mg/dL (9-20); CHLORIDE 100 mmol/L (98-107); Calcium 8.5 mg/dL (8.4-10.2); Carbon Dioxide 31 mmol/L (22-30); Creatinine 1 0.67 mg/dL (0.66-1.25); Glucose 126 mg/dL (74-106); SODIUM 138 mmol/L (137-145)
[2020-04-23] MEDS: solu-CORTEF 100MG IV SCH ×3 (06:12→22:26)
[2020-04-23] MEDS: DEXTROSE IV SCH ×3 (06:12→22:26)
[2020-04-23] MEDS: ZOVIRAX IV SCH ×3 (06:12→22:26)
[2020-04-23] MEDS: WATER IV SCH ×3 (06:12→22:26)
[2020-04-23] MEDS: ENOXAPARIN SODIUM SQ SCH (09:03)
[2020-04-23] MEDS: ECOTRIN 81 MG PO SCH (09:03)
[2020-04-23] MEDS: Cymbalta 30 MG Capsule PO SCH ×2 (09:04→22:26)
[2020-04-23] MEDS: Acidophilus TABLET PO SCH (09:04)
[2020-04-23] MEDS: DELTASONE 5 MG PO SCH (09:04)
[2020-04-23] MEDS: MINERAL OIL PO SCH ×3 (09:05→22:26)
--- NOTE | 2020-04-23 20:12 | PCM.NOTE ---
Date and Time: 04/23/202006 Subjective Assessment: 50 yr old male seen and examined this am. Patient reports he is feeling better. He would like to go home tomorrow. He feels that he is well enough now and doesnt have the neck pain and the upper leg achiness that he usually gets when he starts having a Mollarets meningitis flare. Patient reports he has gotten up to go to the bathroom without issue. Tolerating regular diet. - Review of Systems Constitutional: No Fever, No Fatigue, No Weakness Eyes: No Symptoms Ears, Nose, & Throat: No Nose Congestion, No Throat Pain Respiratory: No Cough, No Short Of Breath Cardiac: No Chest Pain, No Edema Abdominal/Gastrointestinal: No Abdominal Pain, No Nausea, No Vomiting, No Diarrhea, No Constipation Genitourinary Symptoms: No Symptoms Musculoskeletal: Neck Pain (improved), Other (upper thigh achiness has improved) Skin: No Symptoms Neurological: No Headache Objective Exam General Appearance: no apparent distress, obese Neurologic Exam: alert, oriented x 3, cooperative, normal mood/affect, No motor deficits Skin Exam: normal color, warm, dry, No rash Eye Exam: eyes nml inspection Ears, Nose, Throat Exam: moist mucous membranes Neck Exam: normal inspection, other (mildly tender with palpation occiput area), No limited range of motion Respiratory Exam: normal breath sounds, lungs clear, No chest tenderness, No respiratory distress, No wheezing Cardiovascular Exam: regular rate/rhythm, normal heart sounds, No murmur, No friction rub, No gallop Gastrointestinal/Abdomen Exam: soft, normal bowel sounds, No tenderness, No distention Extremity Exam: normal inspection, No pedal edema, No swelling, No tenderness OBJECTIVE DATA Vital Signs: Vital Signs - 24 hr Temp Pulse Resp BP Pulse Ox 04/23/20 19:17 95 04/23/20 16:00 98.6 F 82 17 124/62 94 L 04/23/20 12:00 98.5 F 86 14 120/68 93 L 04/23/20 10:24 93 L 04/23/20 07:31 98.2 F 84 20 137/96 93 L 04/23/20 06:20 97 04/23/20 05:57 92 L 04/23/20 04:00 98.3 F 98 H 18 142/88 97 04/23/20 02:24 94 L 04/23/20 00:00 97.6 F 87 16 131/76 94 L 04/22/20 22:24 94 L 04/22/20 20:46 95 Pain Assessment - Last Documented Pain Intensity 7 Pain Scale Used 0-10 Pain Scale Intake and Output: Intake & Output 04/21/20 04/22/20 04/23/20 04/24/20 11:59 11:59 11:59 11:59 Intake Total 2065 4026 4412 2290 Output Total 1075 2975 2925 1550 Balance 990 1051 1487 740 Weight 111.1 kg Lab Results: Accuchecks Date 04/23/20 Date 04/23/20 Time 16:47 Time 12:17 Accucheck Value: 246 Accucheck Value: 163 Accucheck Value: 214 Lab Results-Last 24 Hours 04/23/20 04/23/20 Range/Units 04:50 04:50 WBC 12.6 H (4.0-10.5) K/mm3 RBC 5.27 (4.1-5.6) M/mm3 Hgb 14.8 (12.5-18.0) gm/dl Hct 46.8 (42-50) % MCV 88.8 (78-100) fl MCH 28.1 (26-32) pg MCHC 31.6 L (32-36) g/dl RDW 16.5 H (11.5-14.0) % Plt Count 362 (150-450) K/mm3 MPV 9.8 (7.5-11.0) fl Gran % 74.5 H (36.0-66.0) % Eos # (Auto) 0.01 (0-0.5) Absolute Lymphs (auto) 2.28 (1.0-4.6) Absolute Monos (auto) 0.89 (0.0-1.3) Lymphocytes % 18.1 L (24.0-44.0) % Monocytes % 7.1 (0.0-12.0) % Eosinophils % 0.1 (0.00-5.0) % Basophils % 0.2 (0.0-0.4) % Absolute Granulocytes 9.40 H (1.4-6.9) Basophils # 0.02 (0-0.4) Sodium 138 (137-145) mmol/L Potassium 4.0 (3.5-5.1) mmol/L Chloride 100 (98-107) mmol/L Carbon Dioxide 31 H (22-30) mmol/L Anion Gap 10.5 (5-15) MEQ/L BUN 11 (9-20) mg/dL Creatinine 0.67 (0.66-1.25) mg/dL Estimated GFR > 60.0 ML/MIN Glucose 126 H (74-106) mg/dL Calcium 8.5 (8.4-10.2) mg/dL Assessment/Plan (1) Mollaret's syndrome (benign recurrent meningitis) Current Visit: No Status: Chronic Onset Date: ~11/01/18 Assessment & Plan: Patient continues to have recurrent flares of aseptic meningitis. He was started on his routine meds for exacerbation including acyclovir steroids and diluadid. Patient required diluadid in addition to his pain pump with morphine and PO morphine. He reports improved symptoms and would like to go home tomorrow. Code(s): G03.2 - BENIGN RECURRENT MENINGITIS [MOLLARET] (2) Opiate dependence Current Visit: No Status: Chronic Assessment & Plan: Patient sees pain management for his morphine pain pump and PO morphine. Code(s): F11.20 - OPIOID DEPENDENCE, UNCOMPLICATED (3) Type 2 diabetes mellitus Current Visit: No Status: Chronic Qualifiers: Diabetes mellitus custodial insulin use: without custodial use Diabetes mellitus complication status: without complication Qualified Code(s): E11.9 - Type 2 diabetes mellitus without complications Assessment & Plan: Patient can resume home meds. Patient's DM is likely affected by the amount of steroids he has to be on with these meningitis flares. (4) Neuropathy Current Visit: No Status: Chronic Code(s): G62.9 - POLYNEUROPATHY, UNSPECIFIED (5) Hypertension Current Visit: No Status: Chronic Onset Date: ~11/01/18 Qualifiers: Hypertension type: essential hypertension Qualified Code(s): I10 - Essential (primary) hypertension Assessment & Plan: Patient to continue routine meds Code(s): I10 - ESSENTIAL (PRIMARY) HYPERTENSION
[2020-04-23] MEDS: Vasotec 10 MG PO SCH (22:26)
[2020-04-23] MEDS: Pepcid 20 MG PO SCH (22:26)
[2020-04-23] MEDS: Protonix 40MG Tablet PO SCH (22:26)
[2020-04-24] MEDS: MSIR 15 MG PO SCH ×2 (00:07→06:12)
[2020-04-24] MEDS: DILAUDID 1 MG/1ML PCA IV PRN (02:03)
[2020-04-24] MEDS: solu-CORTEF 100MG IV SCH (06:12)
[2020-04-24] MEDS: WATER IV SCH (06:12)
[2020-04-24] MEDS: DEXTROSE IV SCH (06:12)
[2020-04-24] MEDS: ZOVIRAX IV SCH (06:12)
[2020-04-24 06:38] LABS: Absolute Neutrophil Ct (ANC) 9.26 (1.4-6.9); BASOPHIL % 0.2 % (0.0-0.4); Basophil (Absolute #) 0.03 (0-0.4); Eosinophil % 0.1 % (0.00-5.0); Eosinophil (Absolute #) 0.01 (0-0.5); Hematocrit 46.2 % (42-50); Hemoglobin 14.7 gm/dl (12.5-18.0); Lymphocytes % 22.5 % (24.0-44.0); Mean Cell Volume 89.5 fl (78-100); Mean Corpuscular Hemoglobin 28.5 pg (26-32); Mean Corpuscular Hgb Concent. 31.8 g/dl (32-36); Mean Platelet Volume 9.8 fl (7.5-11.0); Monocyte (Absolute #) 1.03 (0.0-1.3); Monocytes % 7.7 % (0.0-12.0); Neutrophil % 69.5 % (36.0-66.0); Platelet Count 362 K/mm3 (150-450); Red Blood Count 5.16 M/mm3 (4.1-5.6); Red Cell Distribution Width 16.5 % (11.5-14.0); White Blood Count 13.3 K/mm3 (4.0-10.5)
[2020-04-24 06:58] LABS: ALBUMIN 3.5 g/dL (3.5-5.0); ALKALINE PHOSPHATASE 82 U/L (38-126); ANION GAP 6.2 MEQ/L (5-15); BLOOD UREA NITROGEN 11 mg/dL (9-20); CHLORIDE 103 mmol/L (98-107); Calcium 8.4 mg/dL (8.4-10.2); Carbon Dioxide 33 mmol/L (22-30); Creatinine 1 0.68 mg/dL (0.66-1.25); Glucose 121 mg/dL (74-106); Potassium 3.8 mmol/L (3.5-5.1); SGOT/AST 20 U/L (17-59); SGPT/ALT 26 U/L (0-50); SODIUM 138 mmol/L (137-145); Total Protein 6.4 g/dL (6.3-8.2)
[2020-04-24 08:13] VITALS: BP 131/86; PULSE 77; O2SAT 93
--- NOTE | 2020-04-24 09:46 | PCM.DS ---
Discharge Summary Date of Admission: 04/21/20 16:33 Date of Discharge: 04/24/2020 Admitting Physician: KIMBERLEE STARK Primary Care Provider: ANN ALEXIS Allergies Allergies pregabalin [From Lyrica] Adverse Reaction (Severe, Verified 02/02/20 13:05) Hives SOB hives azithromycin [From Zmax] Adverse Reaction (Mild, Verified 02/02/20 13:05) vomiting Hospital Summary - Hospital Course Hospital Course: is a 50 year old male pt of Dr. Alexis' with recurrent aseptic meningitis (Malloret's meningitis) and DM who called me last night c/o increased neck and head pain since the morning. He periodically has episodes of pain that require hospital admission, antiviral and steroid therapy IV, and IV pain medicine. 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 This morning I come in to find him tearful due to pain, 07/12; he stated he hasn't slept. Dilaudid helps somewhat, but he typically takes his po pain medicine as well during episodes (and pt is also on pain pump). Has been tolerating po. Pt first experienced meningitis in 1991 while in the [place] in [facility]. It was thought to have come from a mosquito bite. He had episodes of recurrent pain and fever about every 1-1.5 years. In 2004 he had an episode that included seizures and paralysis of everything inferior to the chest (was not guillian-barre syndrome). Started seeing Dr. Alcantara in and was eventually dx with Malloret's meningitis. Patient continued on the IV pain meds steroids Po pain meds and antiviral medication. He started to feel more his baseline and felt that he could go home. These episodes appear to be happening more frequently for the patient about every 2-3 months. - Vitals & Intake/Output Vital Signs: Vital Signs Temperature 97.7 F 04/24/20 08:00 Pulse Rate 77 04/24/20 08:00 Respiratory Rate 18 04/24/20 08:00 Blood Pressure 131/86 04/24/20 08:00 O2 Sat by Pulse Oximetry 93 L 04/24/20 08:00 Intake & Output: Intake & Output 04/21/20 04/22/20 04/23/20 04/24/20 11:59 11:59 11:59 11:59 Intake Total 1441 2421 1627 4203 Output Total 7382 7116 2510 7426 Balance 990 1051 1487 580 Weight 111.1 kg - Lab Result Diagrams: 04/24/20 05:13 04/24/20 06:30 Lab Results-Last 24 Hrs: Accuchecks Date 04/23/20 Date 04/23/20 Time 16:47 Time 12:17 Accucheck Value: 370 Accucheck Value: 246 Accucheck Value: 163 Lab Results-Last 24 Hours 04/24/20 04/24/20 Range/Units 05:13 06:30 WBC 13.3 H (4.0-10.5) K/mm3 RBC 5.16 (4.1-5.6) M/mm3 Hgb 14.7 (12.5-18.0) gm/dl Hct 46.2 (42-50) % MCV 89.5 (78-100) fl MCH 28.5 (26-32) pg MCHC 31.8 L (32-36) g/dl RDW 16.5 H (11.5-14.0) % Plt Count 362 (150-450) K/mm3 MPV 9.8 (7.5-11.0) fl Gran % 69.5 H (36.0-66.0) % Eos # (Auto) 0.01 (0-0.5) Absolute Lymphs (auto) 3.00 (1.0-4.6) Absolute Monos (auto) 1.03 (0.0-1.3) Lymphocytes % 22.5 L (24.0-44.0) % Monocytes % 7.7 (0.0-12.0) % Eosinophils % 0.1 (0.00-5.0) % Basophils % 0.2 (0.0-0.4) % Absolute Granulocytes 9.26 H (1.4-6.9) Basophils # 0.03 (0-0.4) Sodium 138 (137-145) mmol/L Potassium 3.8 (3.5-5.1) mmol/L Chloride 103 (98-107) mmol/L Carbon Dioxide 33 H (22-30) mmol/L Anion Gap 6.2 (5-15) MEQ/L BUN 11 (9-20) mg/dL Creatinine 0.68 (0.66-1.25) mg/dL Estimated GFR > 60.0 ML/MIN Glucose 121 H (74-106) mg/dL Calcium 8.4 (8.4-10.2) mg/dL Total Bilirubin 0.30 (0.2-1.3) mg/dL AST 20 (17-59) U/L ALT 26 (0-50) U/L Alkaline Phosphatase 82 (38-126) U/L Serum Total Protein 6.4 (6.3-8.2) g/dL Albumin 3.5 (3.5-5.0) g/dL Micro Results-Entire Visit: Microbiology 04/20/20 22:10 Urine Culture - Final Urine, Void NO GROWTH Accuchecks Date 04/23/20 Date 04/23/20 Time 16:47 Time 12:17 Accucheck Value: 370 Accucheck Value: 246 Accucheck Value: 163 - Procedures and Test Procedures and Tests throughout Hospitalization: Therapy Orders & Screens 04/24/20 07:48 Oxygen NASAL CANNULA 2 lpm Comment: Diagnosis: Mollaret Meningitis Discharge Exam General Appearance: no apparent distress Neurologic Exam: alert, oriented x 3, 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, 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, normal mood/affect, No disoriented, No confusion, No agitation, No depressed mood/affect Eye Exam: eyes nml inspection, No scleral icterus Ears, Nose, Throat Exam: moist mucous membranes Neck Exam: normal inspection, No non-tender (Patient is tender with palpation especially near occiput area.), No meningismus Respiratory Exam: normal breath sounds, lungs clear, No chest tenderness, No respiratory distress, No diminished breath sounds, No crackles/rales, No wheezing Cardiovascular Exam: regular rate/rhythm, normal heart sounds, No murmur, No friction rub, No gallop Gastrointestinal/Abdomen Exam: soft, normal bowel sounds, No tenderness, No distention Male Genitalia Exam: deferred Rectal Exam: deferred Back Exam: normal inspection Extremity Exam: normal range of motion, No pedal edema, No swelling Skin Exam: normal color, warm, dry Final Diagnosis/Problem List - Final Discharge Diagnosis/Problem (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 He appears to be having more frequent occurrences. Patient responded to therapy and was close to baseline. He was able to discharge to home Code(s): G03.2 - BENIGN RECURRENT MENINGITIS [MOLLARET] (2) Opiate dependence Status: Chronic Code(s): F11.20 - OPIOID DEPENDENCE, UNCOMPLICATED (3) Type 2 diabetes mellitus Status: Chronic Assessment & Plan: Patient will continue routine meds at home. His BS will likely be elevated due to IV steroids (4) Neuropathy Status: Chronic Assessment & Plan: Routine home meds Code(s): G62.9 - POLYNEUROPATHY, UNSPECIFIED (5) Hypertension Status: Chronic Onset Date: ~11/01/18 Assessment & Plan: Will continue with routine home meds. BPs may be slightly elevated due to recent IV steroids. Code(s): I10 - ESSENTIAL (PRIMARY) HYPERTENSION - Discharge Disposition: Home, Self-Care Condition: Stable Prescriptions: New Methylprednisolone Packet [Medrol Dosepack] 4 mg PO UD #30 packet Acyclovir Sodium Inj [Zovirax INJ] 400 mg PO Q12H #20 vial Continue Enalapril Maleate 10 mg [Vasotec 10 MG] 20 mg PO HS Multivitamin [Multi-Vitamin Daily] 1 each PO DAILY Aspirin 81 mg PO DAILY Mineral Oil 30 ml PO TID Testosterone Cypionate 1.25 ml IM UD Duloxetine HCl [Cymbalta] 60 mg PO BID Prednisone 10 mg [Deltasone 10 mg] 15 mg PO DAILY PANTOPRAZOLE 40 mg Tablet [Protonix 40MG Tablet] 40 mg PO QPM Morphine Sulfate/Pf [Morphine 10 mg/10 ml Vial] 15.6 mg IJ DAILY L.acidoph,Paracasei, B.lactis [Probiotic] 2 each PO DAILY Famotidine [Pepcid] 40 mg PO HS Metformin HCl 500 mg [Glucophage 500 MG] 500 mg PO BIDWM Morphine Sulfate 15 mg PO QID Instructions: Aseptic Meningitis (DC) Additional Instructions: Patient will follow up with pain specialist next month Follow up with: ANN ALEXIS MD [Primary Care Provider] - 05/02/20
[2020-04-24] MEDS: Cymbalta 30 MG Capsule PO SCH (10:01)
[2020-04-24] MEDS: MINERAL OIL PO SCH (10:02)
[2020-04-24] MEDS: Acidophilus TABLET PO SCH (10:02)
[2020-04-24] MEDS: ECOTRIN 81 MG PO SCH (10:02)
[2020-04-24] MEDS: ENOXAPARIN SODIUM SQ SCH (10:02)
[2020-04-24] MEDS: DELTASONE 5 MG PO SCH (10:02)
== END 2020-04-24 10:23 | disposition home or self-care (01) | DRG 75 ==
LOC: MED SURG 16:33 → OBSVTOIN 04-21 16:33
PROVIDERS: ADMIT Family Medicine; ATTEND Family Medicine
DX: G03.2 Benign recurrent meningitis [Mollaret] (principal); F11.20 Opioid dependence, uncomplicated; E11.9 Type 2 diabetes mellitus without complications; G62.9 Polyneuropathy, unspecified; I10 Essential (primary) hypertension; R51 Headache; M54.2 Cervicalgia; R20.2 Paresthesia of skin; F32.9 Major depressive disorder, single episode, unspecified; Z79.899 Other long term (current) drug therapy
CPT/HCPCS: 36415; 80048; 80053; 81001; 82962; 83036; 83605; 83735; 85025; 87086; 93268; 94760; 94762; G0378; J0133; J1170; J1650; J1720; J1817; A9270-GY

== ENCOUNTER 2020-05-17 18:52 | Inpatient (IN) | payer MEDICARE, BC ==
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
[2020-05-17] MEDS ORDERED: Zofran 4 MG/2 ML VIAL IV ONE (19:14)
[2020-05-17] MEDS ORDERED: Hydromorphone 1 mg/ml Ampule IV ONE ×2 (19:14→20:21)
[2020-05-17] MEDS ORDERED: Zofran 4 MG/2 ML VIAL ONE (19:21)
[2020-05-17] MEDS ORDERED: Hydromorphone 1 mg/ml Ampule ONE ×2 (19:21→20:32)
[2020-05-17 19:42] LABS: Hematocrit 50.2 % (42-50); Hemoglobin 16.4 gm/dl (12.5-18.0); Mean Cell Volume 86.9 fl (78-100); Mean Corpuscular Hemoglobin 28.4 pg (26-32); Mean Corpuscular Hgb Concent. 32.7 g/dl (32-36); Platelet Count 381 K/mm3 (150-450); Red Blood Count 5.78 M/mm3 (4.1-5.6); Red Cell Distribution Width 17.6 % (11.5-14.0); White Blood Count 10.7 K/mm3 (4.0-10.5)
[2020-05-17 20:03] LABS: ALBUMIN 3.9 g/dL (3.5-5.0); ALKALINE PHOSPHATASE 105 U/L (38-126); ANION GAP 9.9 MEQ/L (5-15); BLOOD UREA NITROGEN 10 mg/dL (9-20); CHLORIDE 105 mmol/L (98-107); Calcium 9.4 mg/dL (8.4-10.2); Carbon Dioxide 27 mmol/L (22-30); Creatinine 1 0.85 mg/dL (0.66-1.25); Glucose 113 mg/dL (74-106); Potassium 4.1 mmol/L (3.5-5.1); SGOT/AST 27 U/L (17-59); SGPT/ALT 28 U/L (0-50); SODIUM 137 mmol/L (137-145); Total Protein 7.1 g/dL (6.3-8.2)
[2020-05-17 20:20] LABS: Appearance SLIGHTLY CLOUDY (CLEAR); Bilirubin NEGATIVE (NEGATIVE); Blood NEGATIVE Ery/ul (0-5); Glucose NEGATIVE (NEGATIVE); Ketones NEGATIVE (NEGATIVE); Leukocyte Esterase NEGATIVE (NEGATIVE); Mucus SLIGHT /HPF (NEGATIVE); Nitrite NEGATIVE (NEGATIVE); Protein,Urine Dip NEGATIVE (Negative); Specific Gravity 1.017 (1.005-1.025); Urobilinogen 2 mg/dL (0-1)
[2020-05-17] MEDS ORDERED: Zovirax INJ*** 500 MG in D5w 100ML Mini Bag 100 ML 100 ML IV ONE (20:21)
[2020-05-17] MEDS ORDERED: solu-MEDROL 125 MG IV ONE (20:22)
[2020-05-17 20:24] LABS: Crystals Unidentified 25-50 /HPF (NEGATIVE)
[2020-05-17] MEDS ORDERED: solu-MEDROL 125 MG ONE (20:32)
[2020-05-17 20:47] LABS: Amphetamine,Urine NEGATIVE (NEGATIVE); Barbiturate,Urine NEGATIVE (NEGATIVE); Benzodiazepine,Urine NEGATIVE (NEGATIVE); Cocaine,Urine NEGATIVE (NEGATIVE); Methadone,Urine NEGATIVE (NEGATIVE); Opiate,Urine POSITIVE (NEGATIVE); PCP,Urine NEGATIVE (NEGATIVE); THC,Urine NEGATIVE (NEGATIVE)
[2020-05-17] MEDS ORDERED: Zofran 4 MG/2 ML VIAL IV PRN (21:14)
[2020-05-17] MEDS ORDERED: TYLENOL 325 MG PO PRN (21:14)
[2020-05-17 22:04] LABS: BAND 3 % (0.0-2.0); Eosinophil 1 % (0.00-3.0); Lymphocytes 21 % (24-44); Monocyte 12 % (0.0-12.0); Neutrophils 63 % (36.-66.); Platelet Estimate NORMAL (NORMAL); Total Cells Counted 100
[2020-05-17] MEDS: Sodium Chloride 0.9% 1000 ML 1,000 ML IV SCH (22:07)
[2020-05-17] MEDS: DILAUDID 1 MG/1ML PCA IV PRN (22:08)
[2020-05-17] MEDS: Zovirax INJ IV SCH (22:20)
[2020-05-18] MEDS ORDERED: Vasotec 10 MG PO SCH (00:45)
[2020-05-18] MEDS ORDERED: Vasotec 10 MG ONE (00:47)
[2020-05-18] MEDS: Vasotec 10 MG PO SCH ×2 (00:58→21:12)
[2020-05-18] MEDS: Glucophage 500 MG PO SCH ×2 (00:59→07:32)
[2020-05-18] MEDS: Cymbalta 30 MG Capsule PO SCH ×3 (00:59→21:12)
[2020-05-18] MEDS: Protonix 40MG Tablet PO SCH ×2 (00:59→21:12)
[2020-05-18] MEDS: Ms Contin 15 MG PO SCH ×5 (01:05→23:59)
[2020-05-18] MEDS: MINERAL OIL PO SCH ×4 (01:36→21:13)
[2020-05-18] MEDS: solu-CORTEF 100MG IV SCH ×4 (02:09→21:06)
[2020-05-18] MEDS: Zovirax INJ IV SCH ×2 (04:21→07:12)
[2020-05-18] MEDS: ZOVIRAX IV SCH ×4 (04:21→21:13)
[2020-05-18] MEDS: SODIUM CHLORIDE 0.9% IV SCH ×4 (04:21→21:13)
[2020-05-18 05:27] LABS: Absolute Neutrophil Ct (ANC) 9.92 (1.4-6.9); BASOPHIL % 0.2 % (0.0-0.4); Basophil (Absolute #) 0.02 (0-0.4); Eosinophil (Absolute #) 0 (0-0.5); Hematocrit 48.8 % (42-50); Hemoglobin 15.5 gm/dl (12.5-18.0); Lymphocyte (Absolute #) 0.83 (1.0-4.6); Lymphocytes % 7.7 % (24.0-44.0); Mean Cell Volume 88.1 fl (78-100); Mean Corpuscular Hgb Concent. 31.8 g/dl (32-36); Mean Platelet Volume 10.2 fl (7.5-11.0); Monocyte (Absolute #) 0.06 (0.0-1.3); Monocytes % 0.6 % (0.0-12.0); Neutrophil % 91.5 % (36.0-66.0); Platelet Count 380 K/mm3 (150-450); Red Blood Count 5.54 M/mm3 (4.1-5.6); Red Cell Distribution Width 16.9 % (11.5-14.0); White Blood Count 10.8 K/mm3 (4.0-10.5)
[2020-05-18 05:44] LABS: ALBUMIN 3.8 g/dL (3.5-5.0); ALKALINE PHOSPHATASE 92 U/L (38-126); ANION GAP 16.1 MEQ/L (5-15); BLOOD UREA NITROGEN 12 mg/dL (9-20); CHLORIDE 100 mmol/L (98-107); Calcium 9.1 mg/dL (8.4-10.2); Carbon Dioxide 22 mmol/L (22-30); Creatinine 1 0.93 mg/dL (0.66-1.25); Glucose 311 mg/dL (74-106); Potassium 4.7 mmol/L (3.5-5.1); SGOT/AST 30 U/L (17-59); SODIUM 134 mmol/L (137-145); Total Protein 6.8 g/dL (6.3-8.2)
[2020-05-18 06:58] LABS: SGPT/ALT 32 U/L (0-50)
[2020-05-18] MEDS: Sodium Chloride 0.9% 1000 ML 1,000 ML IV SCH ×2 (07:32→16:41)
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
[2020-05-18] MEDS ORDERED: PATIENT OWN MEDICATION IJ SCH (09:30)
[2020-05-18] MEDS: ECOTRIN 81 MG PO SCH (09:40)
[2020-05-18] MEDS ORDERED: NON-FORMULARY ITEM (Aspirin [Aspirin] 81 MG) PO SCH (10:00)
[2020-05-18] MEDS ORDERED: MORPHINE SULFATE IJ SCH (10:00)
[2020-05-18] MEDS: HUMALOG SQ PRN ×2 (16:39→21:13)
[2020-05-19] MEDS: Sodium Chloride 0.9% 1000 ML 1,000 ML IV SCH ×2 (02:46→13:47)
[2020-05-19] MEDS: DILAUDID 1 MG/1ML PCA IV PRN ×2 (03:30→20:00)
[2020-05-19] MEDS: solu-CORTEF 100MG IV SCH ×3 (05:10→21:29)
[2020-05-19] MEDS: Ms Contin 15 MG PO SCH ×4 (06:01→23:38)
[2020-05-19] MEDS: ZOVIRAX IV SCH ×3 (06:01→21:31)
[2020-05-19] MEDS: SODIUM CHLORIDE 0.9% IV SCH ×3 (06:01→21:31)
[2020-05-19 06:20] LABS: Absolute Neutrophil Ct (ANC) 7.07 (1.4-6.9); BASOPHIL % 0.2 % (0.0-0.4); Basophil (Absolute #) 0.02 (0-0.4); Eosinophil % 0.7 % (0.00-5.0); Eosinophil (Absolute #) 0.08 (0-0.5); Hematocrit 47.4 % (42-50); Hemoglobin 14.8 gm/dl (12.5-18.0); Lymphocytes % 26.6 % (24.0-44.0); Mean Cell Volume 88.9 fl (78-100); Mean Corpuscular Hemoglobin 27.8 pg (26-32); Mean Corpuscular Hgb Concent. 31.2 g/dl (32-36); Mean Platelet Volume 10.4 fl (7.5-11.0); Monocyte (Absolute #) 1.11 (0.0-1.3); Monocytes % 9.8 % (0.0-12.0); Neutrophil % 62.7 % (36.0-66.0); Platelet Count 373 K/mm3 (150-450); Red Blood Count 5.33 M/mm3 (4.1-5.6); Red Cell Distribution Width 17.4 % (11.5-14.0); White Blood Count 11.3 K/mm3 (4.0-10.5)
[2020-05-19 06:30] LABS: ANION GAP 8.8 MEQ/L (5-15); BLOOD UREA NITROGEN 11 mg/dL (9-20); CHLORIDE 105 mmol/L (98-107); Calcium 8.3 mg/dL (8.4-10.2); Carbon Dioxide 28 mmol/L (22-30); Creatinine 1 0.71 mg/dL (0.66-1.25); Glucose 108 mg/dL (74-106); Potassium 4.4 mmol/L (3.5-5.1); SODIUM 137 mmol/L (137-145)
[2020-05-19] MEDS: Cymbalta 30 MG Capsule PO SCH ×2 (09:01→21:31)
[2020-05-19] MEDS: ECOTRIN 81 MG PO SCH (09:01)
[2020-05-19] MEDS: MINERAL OIL PO SCH ×3 (09:02→21:30)
[2020-05-19] MEDS: HUMALOG SQ PRN ×3 (11:49→21:30)
[2020-05-19] MEDS ORDERED: hydroDIURIL 25 MG ONE (13:46)
--- NOTE | 2020-05-19 19:56 | PCM.NOTE ---
Date and Time: 05/19/201950 Subjective Assessment: 50 year old male seen and examined this am. Patient reports that he is still having quite a bit of pain this am. He reports the new medications are helping. He still has the posterior head/neck pain. Patient reports increased lower extremity edema that he felt started after the steroids were started. No other reported concerns this am. - Review of Systems Constitutional: No Fever Eyes: Photophobia Ears, Nose, & Throat: No Symptoms Respiratory: No Cough, No Short Of Breath Cardiac: No Chest Pain, No Edema Abdominal/Gastrointestinal: No Symptoms Genitourinary Symptoms: No Symptoms Musculoskeletal: Neck Pain Neurological: Headache Psychological: No Symptoms Objective Exam General Appearance: no apparent distress, other (Patient sitting up in bed with lights turned down.) Neurologic Exam: alert, oriented x 3, cooperative, normal mood/affect, No disoriented, No confusion, No agitation Skin Exam: normal color, warm, dry, No rash Eye Exam: eyes nml inspection, No scleral icterus Ears, Nose, Throat Exam: moist mucous membranes Respiratory Exam: normal breath sounds, lungs clear, No respiratory distress, No diminished breath sounds, No wheezing Cardiovascular Exam: regular rate/rhythm, normal heart sounds, No murmur, No friction rub, No gallop Gastrointestinal/Abdomen Exam: soft, normal bowel sounds, No tenderness, No distention, No mass, No guarding, No rebound Extremity Exam: pedal edema, swelling OBJECTIVE DATA Vital Signs: Vital Signs - 24 hr Temp Pulse Resp BP Pulse Ox 05/19/20 19:40 97.7 F 88 16 119/72 96 05/19/20 18:00 94 L 05/19/20 16:00 97.5 F 83 16 134/80 96 05/19/20 15:21 96 05/19/20 12:00 97 05/19/20 11:57 98.1 F 83 18 136/88 97 05/19/20 11:30 92 L 05/19/20 07:42 97.9 F 94 H 16 128/81 92 L 05/19/20 07:31 94 L 05/19/20 07:30 94 L 05/19/20 06:08 94 L 05/19/20 04:00 97.6 F 82 20 127/65 97 05/19/20 03:30 99 05/19/20 02:08 96 05/18/20 23:36 98.0 F 111 H 17 129/72 97 05/18/20 22:08 91 L 05/18/20 20:44 93 L Pain Assessment - Last Documented Pain Intensity 8 Pain Scale Used 0-10 Pain Scale Intake and Output: Intake & Output 05/17/20 05/18/20 05/19/20 05/20/20 11:59 11:59 11:59 11:59 Intake Total 2238 4427 1200 Output Total 1075 2000 1450 Balance 1163 2427 -250 Weight 112 kg 116.5 kg Lab Results: Accuchecks Accucheck Value: 170 Accucheck Value: 158 Accucheck Value: 97 Accucheck Value: 297 Lab Results-Last 24 Hours 05/19/20 05/19/20 Range/Units 05:28 05:28 WBC 11.3 H (4.0-10.5) K/mm3 RBC 5.33 (4.1-5.6) M/mm3 Hgb 14.8 (12.5-18.0) gm/dl Hct 47.4 (42-50) % MCV 88.9 (78-100) fl MCH 27.8 (26-32) pg MCHC 31.2 L (32-36) g/dl RDW 17.4 H (11.5-14.0) % Plt Count 373 (150-450) K/mm3 MPV 10.4 (7.5-11.0) fl Gran % 62.7 (36.0-66.0) % Eos # (Auto) 0.08 (0-0.5) Absolute Lymphs (auto) 3.00 (1.0-4.6) Absolute Monos (auto) 1.11 (0.0-1.3) Lymphocytes % 26.6 (24.0-44.0) % Monocytes % 9.8 (0.0-12.0) % Eosinophils % 0.7 (0.00-5.0) % Basophils % 0.2 (0.0-0.4) % Absolute Granulocytes 7.07 H (1.4-6.9) Basophils # 0.02 (0-0.4) Sodium 137 (137-145) mmol/L Potassium 4.4 (3.5-5.1) mmol/L Chloride 105 (98-107) mmol/L Carbon Dioxide 28 (22-30) mmol/L Anion Gap 8.8 (5-15) MEQ/L BUN 11 (9-20) mg/dL Creatinine 0.71 (0.66-1.25) mg/dL Estimated GFR > 60.0 ML/MIN Glucose 108 H (74-106) mg/dL Calcium 8.3 L (8.4-10.2) mg/dL Assessment/Plan (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 Onset Date: ~11/01/18 Assessment & Plan: Patient is having another episode of meningitis. He is on acyclovir steroids and pain medication. He does not feel well enough to go home today. Will continue with routine medications for this type of meningitis Code(s): G03.2 - BENIGN RECURRENT MENINGITIS [MOLLARET] (2) Edema Current Visit: Yes Status: Acute Assessment & Plan: Patient is reporting lower extremity edema. Will give a dose of hctz and see if helps with the edema. Will readdress tomorrow. Code(s): R60.9 - EDEMA, UNSPECIFIED (3) Type 2 diabetes mellitus Current Visit: No Status: Chronic Qualifiers: Assessment & Plan: Possibly related to the steroids. Will continue on routine meds.
[2020-05-19] MEDS: Protonix 40MG Tablet PO SCH (21:31)
[2020-05-19] MEDS: Vasotec 10 MG PO SCH (21:31)
[2020-05-19] MEDS: Artificial Tears 15 ML OP PRN (22:14)
[2020-05-20] MEDS: Sodium Chloride 0.9% 1000 ML 1,000 ML IV SCH ×2 (01:45→13:36)
[2020-05-20] MEDS ORDERED: Sodium Chloride 0.9% 100 ML IVPB 0 ML IV ONE (05:22)
[2020-05-20] MEDS: ZOVIRAX IV SCH ×3 (05:32→21:16)
[2020-05-20] MEDS: solu-CORTEF 100MG IV SCH ×3 (05:32→21:11)
[2020-05-20] MEDS: SODIUM CHLORIDE 0.9% IV SCH ×3 (05:32→21:16)
[2020-05-20] MEDS: Ms Contin 15 MG PO SCH ×3 (05:32→17:00)
[2020-05-20] MEDS: Cymbalta 30 MG Capsule PO SCH ×2 (09:06→21:16)
[2020-05-20] MEDS: Artificial Tears 15 ML OP PRN (09:06)
[2020-05-20] MEDS: ECOTRIN 81 MG PO SCH (09:07)
[2020-05-20] MEDS: MINERAL OIL PO SCH ×3 (09:07→21:17)
[2020-05-20] MEDS ORDERED: hydroDIURIL 25 MG PO ONE ×2 (10:00→13:00)
[2020-05-20] MEDS: HUMALOG SQ PRN ×3 (11:44→22:29)
[2020-05-20] MEDS: DILAUDID 1 MG/1ML PCA IV PRN (14:11)
--- NOTE | 2020-05-20 14:47 | PCM.NOTE ---
Date and Time: 05/20/20 1442 Subjective Assessment: 50 yr old male seen and examined this am. Patient reports that he can tell he is improving. He reports that his eyes have been dry and irritated but the saline is helping. He reports the lower extremity swelling is improved after the HCTZ. Patient reports he still has the pain posterior head and neck area. He feels he will be ready to go home tomorrow. - Review of Systems Constitutional: No Fever, No Chills Eyes: Eye Redness, Photophobia (improving) Ears, Nose, & Throat: No Symptoms Respiratory: No Symptoms Cardiac: Edema Abdominal/Gastrointestinal: No Symptoms Genitourinary Symptoms: No Symptoms Musculoskeletal: Back Pain, Neck Pain Neurological: Headache Psychological: No Symptoms Objective Exam General Appearance: no apparent distress, obese Neurologic Exam: alert, oriented x 3, cooperative, normal mood/affect Skin Exam: normal color, warm, dry, No rash Eye Exam: other (injected conjunctiva) Ears, Nose, Throat Exam: moist mucous membranes Respiratory Exam: normal breath sounds, lungs clear Cardiovascular Exam: regular rate/rhythm, normal heart sounds, No murmur, No friction rub, No gallop Gastrointestinal/Abdomen Exam: soft, normal bowel sounds, No tenderness, No distention, No mass, No rebound Extremity Exam: normal inspection, No pedal edema, No swelling Back Exam: No normal range of motion OBJECTIVE DATA Vital Signs: Vital Signs - 24 hr Temp Pulse Resp BP Pulse Ox 05/20/20 14:11 94 L 05/20/20 12:00 98.5 F 98 H 16 121/77 94 L 05/20/20 10:59 96 05/20/20 08:00 96 05/20/20 07:17 97.7 F 83 18 120/72 96 05/20/20 05:40 97 05/20/20 04:00 97.6 F 77 17 125/78 97 05/19/20 23:55 97 05/19/20 23:51 98.0 F 112 H 24 137/75 97 05/19/20 20:15 93 L 05/19/20 20:00 96 05/19/20 19:40 97.7 F 88 16 119/72 96 05/19/20 18:00 94 L 05/19/20 16:00 97.5 F 83 16 134/80 96 05/19/20 15:21 96 Pain Assessment - Last Documented Pain Intensity 7 Pain Scale Used 0-10 Pain Scale Intake and Output: Intake & Output 05/18/20 05/19/20 05/20/20 05/21/20 11:59 11:59 11:59 11:59 Intake Total 2238 4427 5181 310 Output Total 1075 2000 4600 1000 Balance 1163 2427 581 -690 Weight 112 kg 116.5 kg 116.2 kg Lab Results: Accuchecks Date 05/19/20 Time 21:30 Accucheck Value: 171 Accucheck Value: 129 Accucheck Value: 202 Accucheck Value: 170 Assessment/Plan (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 Onset Date: ~11/01/18 Assessment & Plan: Will continue on current therapy of acyclovir steroids and pain medication. Plan for DC tomorrow Code(s): G03.2 - BENIGN RECURRENT MENINGITIS [MOLLARET] (2) Edema Current Visit: Yes Status: Acute Assessment & Plan: Patient got a dose of HCTZ yesterday and will get a second dose today. There does not appear to edema on physical exam Code(s): R60.9 - EDEMA, UNSPECIFIED (3) Type 2 diabetes mellitus Current Visit: No Status: Chronic Qualifiers: Assessment & Plan: Will continue on routine home medications (4) Eye irritation Current Visit: Yes Status: Acute Assessment & Plan: Patient has been using normal saline for eyes Code(s): H57.89 - OTHER SPECIFIED DISORDERS OF EYE AND ADNEXA
[2020-05-20] MEDS: Protonix 40MG Tablet PO SCH (21:16)
[2020-05-20] MEDS: Vasotec 10 MG PO SCH (21:16)
[2020-05-21] MEDS: Ms Contin 15 MG PO SCH ×3 (00:26→11:59)
[2020-05-21] MEDS: Sodium Chloride 0.9% 1000 ML 1,000 ML IV SCH (01:38)
[2020-05-21] MEDS: solu-CORTEF 100MG IV SCH ×2 (05:10→13:09)
[2020-05-21] MEDS: ZOVIRAX IV SCH ×2 (06:04→13:24)
[2020-05-21] MEDS: SODIUM CHLORIDE 0.9% IV SCH ×2 (06:04→13:24)
--- NOTE | 2020-05-21 08:46 | PCM.DS ---
Discharge Summary Date of Admission: 05/18/20 08:25 Admitting Physician: ANN ALEXIS Primary Care Provider: ANN ALEXIS Allergies Allergies pregabalin [From Lyrica] Adverse Reaction (Severe, Verified 05/17/20 19:07) Hives SOB hives azithromycin [From Zmax] Adverse Reaction (Mild, Verified 05/17/20 19:07) vomiting Hospital Summary - Hospital Course Hospital Course: patient was admitted with headache and neck pain, symptoms typical for flare of recurrent aseptic meningitis. he has improved with IV steroids, solu-cortef and acyclovir. - Vitals & Intake/Output Vital Signs: Vital Signs Temperature 97.7 F 05/21/20 07:53 Pulse Rate 78 05/21/20 07:53 Respiratory Rate 16 05/21/20 07:53 Blood Pressure 127/81 05/21/20 07:53 O2 Sat by Pulse Oximetry 98 05/21/20 07:53 Intake & Output: Intake & Output 05/18/20 05/19/20 05/20/20 05/21/20 11:59 11:59 11:59 11:59 Intake Total 2234 4476 5181 4016 Output Total 1075 2000 4600 6000 Balance 1163 2427 581 -1984 Weight 112 kg 116.5 kg 116.2 kg 116.3 kg - Lab Result Diagrams: 05/19/20 05:28 05/19/20 05:28 Lab Results-Last 24 Hrs: Accuchecks Accucheck Value: 250 Accucheck Value: 193 Accucheck Value: 171 Micro Results-Entire Visit: Microbiology 05/17/20 19:54 Blood Culture - Preliminary Blood NO GROWTH TO DATE 05/17/20 19:30 Blood Culture - Preliminary Blood NO GROWTH TO DATE Accuchecks Accucheck Value: 250 Accucheck Value: 193 Accucheck Value: 171 Discharge Exam General Appearance: no apparent distress, obese Neurologic Exam: alert, oriented x 3 Respiratory Exam: normal breath sounds, lungs clear, No respiratory distress Cardiovascular Exam: regular rate/rhythm, normal heart sounds Gastrointestinal/Abdomen Exam: soft, No tenderness, No mass Skin Exam: normal color, warm, dry Final Diagnosis/Problem List - Final Discharge Diagnosis/Problem (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 Onset Date: ~11/01/18 Assessment & Plan: home on prednisone and acyclovir Code(s): G03.2 - BENIGN RECURRENT MENINGITIS [MOLLARET] (2) Cephalgia Current Visit: No Status: Acute Onset Date: ~11/01/18 Code(s): R51 - HEADACHE (3) Type 2 diabetes mellitus Current Visit: No Status: Chronic - Discharge Disposition: Home, Self-Care Condition: Stable Prescriptions: New Acyclovir 800 mg PO TID #21 tablet Prednisone 20 mg [Deltasone 20 mg] 20 mg PO UD #18 tablet Continue Enalapril Maleate 10 mg [Vasotec 10 MG] 20 mg PO HS Multivitamin [Multi-Vitamin Daily] 1 each PO DAILY Aspirin 81 mg PO DAILY Mineral Oil 30 ml PO TID Testosterone Cypionate 1.25 ml IM UD Duloxetine HCl [Cymbalta] 60 mg PO BID Prednisone 10 mg [Deltasone 10 mg] 15 mg PO DAILY PANTOPRAZOLE 40 mg Tablet [Protonix 40MG Tablet] 40 mg PO QPM Morphine Sulfate/Pf [Morphine 10 mg/10 ml Vial] 15.6 mg IJ DAILY L.acidoph,Paracasei, B.lactis [Probiotic] 2 each PO DAILY Metformin HCl 500 mg [Glucophage 500 MG] 500 mg PO BIDWM Morphine Sulfate 15 mg PO QID Follow up with: ANN ALEXIS MD [Primary Care Provider] - 1 Week
[2020-05-21] MEDS: ECOTRIN 81 MG PO SCH (10:03)
[2020-05-21] MEDS: Cymbalta 30 MG Capsule PO SCH (10:03)
[2020-05-21] MEDS: MINERAL OIL PO SCH ×2 (10:05→15:36)
[2020-05-21 15:56] VITALS: BP 120/74; PULSE 83
[2020-05-21 16:51] VITALS: O2SAT 98
== END 2020-05-21 16:33 | disposition home or self-care (01) | DRG 76 ==
LOC: ED 18:52 → MED SURG 20:44 → OBSVTOIN 05-18 08:25
PROVIDERS: ADMIT Family Medicine; ATTEND Family Medicine
DX: G03.2 Benign recurrent meningitis [Mollaret] (principal); R51 Headache; M54.2 Cervicalgia; E11.9 Type 2 diabetes mellitus without complications; I10 Essential (primary) hypertension; G89.29 Other chronic pain; R60.9 Edema, unspecified; H57.89 Other specified disorders of eye and adnexa; Z79.899 Other long term (current) drug therapy
CPT/HCPCS: 36000; 36415; 80048; 80053; 80307; 81001; 82962; 83605; 85025; 87040; 93268; 94762; 96365; 96367; 96374; 96375; 99285; G0378; J0133; J1170; J1720; J1817; J2405; J2930; A9270-GY

== ENCOUNTER 2020-05-23 12:00 | Emergency (ER) | payer BC, MEDICARE ==
[2020-05-23 13:16] VITALS: BP 118/75
--- NOTE | 2020-05-23 13:19 | XRAY ---
Exam: Two-view chest from 05/23/2020. Comparison: Two-view chest from 11/16/2019. Indication: Rule out pneumonia. Findings: Upright PA and lateral chest films are submitted for evaluation. The heart size is normal. Mild chronic endobronchial thickening is seen within the wilver. Correlate clinically regarding COPD, history of cigarette smoking, or bronchitis. I see no air space infiltrates, vascular congestion, pneumothorax, or pleural fluid. There is minimal biapical pleural thickening/scarring. I again see mild elevation/eventration of the anterior aspect of the right hemidiaphragm representing no change. Moderate osteophyte formation is seen within the lower thoracic spine representing no change. No acute osseous process is seen. Impression: 1. No air space infiltrates are seen to suggest pneumonia. 2. Mild chronic central bronchial wall thickening. See above. 3. No other acute cardiopulmonary disease is seen.
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
[2020-05-23 14:06] VITALS: PULSE 110; O2SAT 94
== END 2020-05-23 14:15 | disposition home or self-care (01) ==
LOC: ED 12:00
DX: J02.9 Acute pharyngitis, unspecified (principal)
CPT/HCPCS: 71046; 87651; 99284

== ENCOUNTER 2020-07-25 15:34 | Inpatient (IN) | payer MEDICARE, BC ==
[2020-07-25] MEDS ORDERED: Zofran 4 MG/2 ML VIAL IV ONE (16:09)
[2020-07-25] MEDS ORDERED: Hydromorphone 1 mg/ml Injection IV ONE (16:09)
[2020-07-25] MEDS ORDERED: Sodium Chloride 0.9% 1000 ML 1,000 ML IV STA (16:09)
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
[2020-07-25] MEDS ORDERED: solu-CORTEF 100MG IV ONE (16:10)
[2020-07-25] MEDS ORDERED: solu-CORTEF 100MG ONE (16:16)
[2020-07-25] MEDS ORDERED: Zofran 4 MG/2 ML VIAL ONE (16:16)
[2020-07-25] MEDS ORDERED: Sodium Chloride 0.9% 1000 ML 1,000 ML ONE (16:17)
[2020-07-25] MEDS ORDERED: Hydromorphone 1 mg/ml Injection ONE (16:17)
[2020-07-25 16:28] LABS: Hematocrit 52.6 % (42-50); Mean Cell Volume 88.1 fl (78-100); Mean Corpuscular Hemoglobin 28.5 pg (26-32); Mean Corpuscular Hgb Concent. 32.3 g/dl (32-36); Platelet Count 392 K/mm3 (150-450); Red Blood Count 5.97 M/mm3 (4.1-5.6); Red Cell Distribution Width 19.1 % (11.5-14.0); White Blood Count 11.5 K/mm3 (4.0-10.5)
[2020-07-25 16:39] LABS: ALBUMIN 4.5 g/dL (3.5-5.0); ALKALINE PHOSPHATASE 112 U/L (38-126); ANION GAP 12.9 MEQ/L (5-15); BLOOD UREA NITROGEN 9 mg/dL (9-20); CHLORIDE 101 mmol/L (98-107); Calcium 9.6 mg/dL (8.4-10.2); Carbon Dioxide 28 mmol/L (22-30); Creatinine 1 0.89 mg/dL (0.66-1.25); EST GLOMERULAR FILTRATION RATE > 60.0 ML/MIN; Glucose 123 mg/dL (74-106); Potassium 4.6 mmol/L (3.5-5.1); SGOT/AST 38 U/L (17-59); SGPT/ALT 36 U/L (0-50); SODIUM 137 mmol/L (137-145); Total Protein 8.1 g/dL (6.3-8.2)
[2020-07-25] MEDS ORDERED: TYLENOL 325 MG PO PRN (17:19)
[2020-07-25] MEDS ORDERED: Zofran 4 MG/2 ML VIAL IV PRN (17:19)
[2020-07-25] MEDS: DILAUDID 1 MG/1ML PCA IV PRN (17:39)
[2020-07-25] MEDS: solu-CORTEF 100MG IV SCH (17:47)
[2020-07-25 17:50] LABS: ATYPICAL LYMPHS 3 %; Basophil 1 % (0.0-1.0); Eosinophil 4 % (0.00-3.0); Lymphocytes 18 % (24-44); Monocyte 9 % (0.0-12.0); Neutrophils 65 % (36.-66.); Platelet Estimate NORMAL (NORMAL); Total Cells Counted 100
[2020-07-25] MEDS: Sodium Chloride 0.9% 1000 ML 1,000 ML IV SCH (17:55)
[2020-07-25] MEDS: ZOVIRAX IV SCH ×2 (18:26→18:29)
[2020-07-25] MEDS: SODIUM CHLORIDE 0.9% IV SCH ×2 (18:26→18:29)
[2020-07-25] MEDS: MSIR 15 MG PO SCH (18:36)
[2020-07-25] MEDS: Cymbalta 30 MG Capsule PO SCH (20:37)
[2020-07-25] MEDS: Protonix 40MG Tablet PO SCH (20:38)
[2020-07-25] MEDS: MINERAL OIL PO SCH (20:38)
[2020-07-25] MEDS: Vasotec 10 MG PO SCH (20:39)
[2020-07-25] MEDS ORDERED: MSIR 15 MG PO SCH (22:00)
[2020-07-26] MEDS: MSIR 15 MG PO SCH (00:40)
[2020-07-26] MEDS: SODIUM CHLORIDE 0.9% IV SCH ×3 (00:43→16:02)
[2020-07-26] MEDS: ZOVIRAX IV SCH ×3 (00:43→16:02)
[2020-07-26] MEDS: solu-CORTEF 100MG IV SCH ×3 (00:43→17:11)
[2020-07-26] MEDS ORDERED: solu-MEDROL 125 MG ONE (06:04)
[2020-07-26] MEDS ORDERED: MSIR 15 MG PO SCH ×2 (06:15→09:30)
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
[2020-07-26] MEDS: Cymbalta 30 MG Capsule PO SCH ×2 (09:12→21:40)
[2020-07-26] MEDS: MINERAL OIL PO SCH ×3 (09:12→21:40)
[2020-07-26] MEDS: Sodium Chloride 0.9% 1000 ML 1,000 ML IV SCH ×3 (09:17→22:56)
[2020-07-26] MEDS ORDERED: PATIENT OWN MEDICATION IJ SCH (09:30)
[2020-07-26] MEDS: Glucophage 500 MG PO SCH ×2 (09:44→17:11)
[2020-07-26] MEDS: ECOTRIN 81 MG PO SCH (09:44)
[2020-07-26] MEDS: Acidophilus TABLET PO SCH (09:47)
[2020-07-26] MEDS: THERAGRAN MULTIVITAMIN PO SCH (09:47)
[2020-07-26] MEDS ORDERED: Ms Contin 15 MG PO SCH (10:00)
[2020-07-26] MEDS ORDERED: MINERAL OIL PO SCH (10:00)
[2020-07-26] MEDS ORDERED: MORPHINE SULFATE IJ SCH (10:00)
[2020-07-26] MEDS ORDERED: ACIDOPH PARACASEI B LACTIS PO SCH (10:00)
[2020-07-26] MEDS ORDERED: NON-FORMULARY ITEM (Aspirin [Aspirin] 81 MG) PO SCH (10:00)
[2020-07-26] MEDS ORDERED: NON-FORMULARY ITEM (Multivitamin [Multi-Vitamin Daily] 1 EACH) PO SCH (10:00)
[2020-07-26] MEDS: Ms Contin 15 MG PO SCH ×2 (16:02→21:40)
[2020-07-26] MEDS: HUMALOG SQ PRN ×2 (17:11→21:41)
[2020-07-26] MEDS: Protonix 40MG Tablet PO SCH (21:40)
[2020-07-26] MEDS: Vasotec 10 MG PO SCH (21:40)
[2020-07-26] MEDS: DILAUDID 1 MG/1ML PCA IV PRN (22:39)
[2020-07-27] MEDS: solu-CORTEF 100MG IV SCH ×3 (00:08→18:16)
[2020-07-27] MEDS: Glucophage 500 MG PO SCH ×2 (08:00→18:16)
[2020-07-27] MEDS: Ms Contin 15 MG PO SCH ×4 (08:00→18:16)
[2020-07-27] MEDS: SODIUM CHLORIDE 0.9% IV SCH ×4 (08:01→15:48)
[2020-07-27] MEDS: ZOVIRAX IV SCH ×4 (08:01→15:48)
--- NOTE | 2020-07-27 08:18 | PCM.NOTE ---
Date and Time: 07/27/20814 Subjective Assessment: pt reports mild improvement in pain and range of motion of neck, feels like the MS CR is better but not lasting at tid. maicol po, no fever Objective Exam General Appearance: no apparent distress, obese Neurologic Exam: alert, oriented x 3, cooperative Neck Exam: limited range of motion Respiratory Exam: normal breath sounds, lungs clear, No respiratory distress Cardiovascular Exam: regular rate/rhythm, normal heart sounds Gastrointestinal/Abdomen Exam: soft, No tenderness, No mass Extremity Exam: normal inspection, normal range of motion OBJECTIVE DATA Vital Signs: Vital Signs - 24 hr Temp Pulse Resp BP Pulse Ox 07/27/20 07:29 95 07/27/20 07:00 97.7 F 93 H 18 136/91 95 07/27/20 03:00 97.3 F 104 H 26 H 135/87 91 L 07/27/20 02:39 93 L 07/26/20 23:35 97.9 F 90 22 125/65 92 L 07/26/20 22:39 94 L 07/26/20 20:00 97.6 F 07/26/20 19:17 94 L 07/26/20 15:35 97.7 F 102 H 16 109/62 93 L 07/26/20 11:17 97.2 F 83 26 H 148/86 95 Pain Assessment - Last Documented Pain Intensity 8 Pain Scale Used 0-10 Pain Scale Intake and Output: Intake & Output 07/24/20 07/25/20 07/26/20 07/27/20 11:59 11:59 11:59 11:59 Intake Total 3732 3705 Output Total 3450 2900 Balance 282 805 Weight 109.4 kg Lab Results: Lab Results-Last 24 Hours 07/26/20 07/26/20 07/26/20 Range/Units 00:00 10:58 15:59 POC Glucometer 111 H 246 H (74 to 106) mg/dL Hemoglobin A1c 6.60 H (4.5-6.0) % 07/26/20 07/27/20 Range/Units 20:34 07:43 POC Glucometer 211 H 88 (74 to 106) mg/dL Hemoglobin A1c (4.5-6.0) % Assessment/Plan (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 Onset Date: ~11/01/18 Assessment & Plan: on IV acyclovir and IV solu cortef. improving, will likely be ready to discharge in the next 1-2 days Code(s): G03.2 - BENIGN RECURRENT MENINGITIS [MOLLARET] (2) Cephalgia Current Visit: No Status: Acute Onset Date: ~11/01/18 Qualifiers: Code(s): R51 - HEADACHE (3) Exacerbation of chronic back pain Current Visit: No Status: Acute Onset Date: ~11/01/18 Code(s): M54.9 - DORSALGIA, UNSPECIFIED; G89.29 - OTHER CHRONIC PAIN (4) Diabetes mellitus Current Visit: Yes Status: Acute Code(s): E11.9 - TYPE 2 DIABETES MELLITUS WITHOUT COMPLICATIONS
[2020-07-27] MEDS: Cymbalta 30 MG Capsule PO SCH ×2 (09:02→21:38)
[2020-07-27] MEDS: Acidophilus TABLET PO SCH (09:02)
[2020-07-27] MEDS: THERAGRAN MULTIVITAMIN PO SCH (09:03)
[2020-07-27] MEDS: ECOTRIN 81 MG PO SCH (09:03)
[2020-07-27] MEDS: MINERAL OIL PO SCH ×2 (09:07→21:39)
[2020-07-27] MEDS ORDERED: Ms Contin 15 MG PO SCH (10:00)
[2020-07-27] MEDS: Sodium Chloride 0.9% 1000 ML 1,000 ML IV SCH (11:32)
[2020-07-27] MEDS ORDERED: MINERAL OIL PO SCH (15:00)
[2020-07-27] MEDS: Vasotec 10 MG PO SCH (21:39)
[2020-07-27] MEDS: Protonix 40MG Tablet PO SCH (21:39)
[2020-07-27] MEDS: HUMALOG SQ PRN (21:39)
[2020-07-28] MEDS: Sodium Chloride 0.9% 1000 ML 1,000 ML IV SCH ×2 (00:16→17:37)
[2020-07-28] MEDS: SODIUM CHLORIDE 0.9% IV SCH ×3 (00:17→17:42)
[2020-07-28] MEDS: ZOVIRAX IV SCH ×3 (00:17→17:42)
[2020-07-28] MEDS: Ms Contin 15 MG PO SCH ×4 (00:17→17:31)
[2020-07-28] MEDS: solu-CORTEF 100MG IV SCH ×3 (00:20→17:38)
[2020-07-28 06:07] LABS: Hematocrit 43.7 % (42-50); Mean Cell Volume 89.7 fl (78-100); Mean Corpuscular Hemoglobin 28.7 pg (26-32); Platelet Count 330 K/mm3 (150-450); Red Blood Count 4.87 M/mm3 (4.1-5.6); White Blood Count 11.7 K/mm3 (4.0-10.5)
[2020-07-28 06:22] LABS: ANION GAP 7.5 MEQ/L (5-15); BLOOD UREA NITROGEN 14 mg/dL (9-20); CHLORIDE 105 mmol/L (98-107); Calcium 8.6 mg/dL (8.4-10.2); Carbon Dioxide 28 mmol/L (22-30); Creatinine 1 0.73 mg/dL (0.66-1.25); EST GLOMERULAR FILTRATION RATE > 60.0 ML/MIN; Glucose 147 mg/dL (74-106); Potassium 4.1 mmol/L (3.5-5.1); SODIUM 137 mmol/L (137-145)
[2020-07-28] MEDS: Glucophage 500 MG PO SCH ×2 (07:59→17:31)
[2020-07-28 09:25] LABS: Basophil 3 % (0.0-1.0); Lymphocytes 13 % (24-44); Monocyte 11 % (0.0-12.0); Neutrophils 73 % (36.-66.); Platelet Estimate NORMAL (NORMAL); Total Cells Counted 100
[2020-07-28] MEDS: DILAUDID 1 MG/1ML PCA IV PRN (09:48)
[2020-07-28] MEDS: Acidophilus TABLET PO SCH (09:55)
[2020-07-28] MEDS: ECOTRIN 81 MG PO SCH (09:55)
[2020-07-28] MEDS: Cymbalta 30 MG Capsule PO SCH ×2 (09:55→22:01)
[2020-07-28] MEDS: THERAGRAN MULTIVITAMIN PO SCH (09:55)
[2020-07-28] MEDS: MINERAL OIL PO SCH ×3 (09:56→22:01)
[2020-07-28] MEDS: HUMALOG SQ PRN (17:45)
[2020-07-28] MEDS: Protonix 40MG Tablet PO SCH (22:01)
[2020-07-28] MEDS: Vasotec 10 MG PO SCH (22:01)
[2020-07-29] MEDS: SODIUM CHLORIDE 0.9% IV SCH ×4 (01:29→23:26)
[2020-07-29] MEDS: ZOVIRAX IV SCH ×4 (01:29→23:26)
[2020-07-29] MEDS: Ms Contin 15 MG PO SCH ×2 (01:29→06:49)
[2020-07-29] MEDS: solu-CORTEF 100MG IV SCH ×3 (01:29→19:30)
[2020-07-29 06:06] LABS: Absolute Neutrophil Ct (ANC) 8.03 (1.4-6.9); BASOPHIL % 0.2 % (0.0-0.4); Basophil (Absolute #) 0.02 (0-0.4); Eosinophil % 0.5 % (0.00-5.0); Eosinophil (Absolute #) 0.06 (0-0.5); Hematocrit 42.8 % (42-50); Hemoglobin 13.6 gm/dl (12.5-18.0); Lymphocyte (Absolute #) 2.43 (1.0-4.6); Lymphocytes % 21.2 % (24.0-44.0); Mean Cell Volume 90.3 fl (78-100); Mean Corpuscular Hemoglobin 28.7 pg (26-32); Mean Corpuscular Hgb Concent. 31.8 g/dl (32-36); Mean Platelet Volume 9.9 fl (7.5-11.0); Monocyte (Absolute #) 0.91 (0.0-1.3); Monocytes % 7.9 % (0.0-12.0); Neutrophil % 70.2 % (36.0-66.0); Platelet Count 345 K/mm3 (150-450); Red Blood Count 4.74 M/mm3 (4.1-5.6); Red Cell Distribution Width 18.4 % (11.5-14.0); White Blood Count 11.5 K/mm3 (4.0-10.5)
[2020-07-29 06:27] LABS: ALBUMIN 3.3 g/dL (3.5-5.0); ALKALINE PHOSPHATASE 72 U/L (38-126); ANION GAP 5.7 MEQ/L (5-15); BLOOD UREA NITROGEN 14 mg/dL (9-20); CHLORIDE 105 mmol/L (98-107); Calcium 8.4 mg/dL (8.4-10.2); Carbon Dioxide 30 mmol/L (22-30); Creatinine 1 0.72 mg/dL (0.66-1.25); EST GLOMERULAR FILTRATION RATE > 60.0 ML/MIN; Glucose 134 mg/dL (74-106); SGOT/AST 34 U/L (17-59); SGPT/ALT 38 U/L (0-50); SODIUM 137 mmol/L (137-145); Total Protein 6.1 g/dL (6.3-8.2)
[2020-07-29] MEDS: Sodium Chloride 0.9% 1000 ML 1,000 ML IV SCH ×2 (06:50→19:59)
[2020-07-29] MEDS: ECOTRIN 81 MG PO SCH (11:02)
[2020-07-29] MEDS: Acidophilus TABLET PO SCH (11:02)
[2020-07-29] MEDS: Cymbalta 30 MG Capsule PO SCH ×2 (11:02→22:22)
[2020-07-29] MEDS: Glucophage 500 MG PO SCH ×2 (11:02→17:30)
[2020-07-29] MEDS: THERAGRAN MULTIVITAMIN PO SCH (11:03)
[2020-07-29] MEDS: MINERAL OIL PO SCH ×3 (11:03→22:23)
[2020-07-29] MEDS: MSIR 15 MG PO SCH ×2 (12:36→19:30)
[2020-07-29] MEDS: Protonix 40MG Tablet PO SCH (22:22)
[2020-07-29] MEDS: Vasotec 10 MG PO SCH (22:23)
[2020-07-30] MEDS: solu-CORTEF 100MG IV SCH (01:30)
[2020-07-30] MEDS: MSIR 15 MG PO SCH ×2 (01:30→07:30)
[2020-07-30] MEDS: DILAUDID 1 MG/1ML PCA IV PRN ×2 (05:36→08:16)
[2020-07-30] MEDS: Glucophage 500 MG PO SCH (07:30)
[2020-07-30 07:40] VITALS: BP 188/99; PULSE 74; O2SAT 95
--- NOTE | 2020-07-30 08:07 | PCM.DS ---
Discharge Summary Date of Admission: 07/25/20 17:17 Admitting Physician: ANN ALEXIS Primary Care Provider: ANN ALEXIS Allergies Allergies pregabalin [From Lyrica] Adverse Reaction (Severe, Verified 07/25/20 15:45) Hives SOB hives azithromycin [From Zmax] Adverse Reaction (Mild, Verified 07/25/20 15:45) vomiting Hospital Summary - Hospital Course Hospital Course: patient was admitted with flare of recurrent aseptic meningitis, presented with headache and neck pain as per usual flare. improved with IV solu cortef and acyclovir. - Vitals & Intake/Output Vital Signs: Vital Signs Temperature 97.8 F 07/30/20 07:39 Pulse Rate 74 07/30/20 07:39 Respiratory Rate 24 07/30/20 07:39 Blood Pressure 188/99 07/30/20 07:39 O2 Sat by Pulse Oximetry 95 07/30/20 07:50 Intake & Output: Intake & Output 07/27/20 07/28/20 07/29/20 07/30/20 11:59 11:59 11:59 11:59 Intake Total 4325 6761 5302 4496 Output Total 2900 3005 3250 4450 Balance 1425 3756 2052 46 Weight 109.4 kg - Lab Result Diagrams: 07/29/20 05:25 07/29/20 05:25 Lab Results-Last 24 Hrs: Lab Results-Last 24 Hours 07/29/20 07/29/20 07/29/20 Range/Units 11:36 15:45 21:04 POC Glucometer 85 135 H 126 H (74 to 106) mg/dL 07/30/20 Range/Units 06:55 POC Glucometer 96 (74 to 106) mg/dL Micro Results-Entire Visit: Accuchecks Date 07/30/20 Date 07/29/20 Date 07/29/20 Discharge Exam General Appearance: no apparent distress, obese Neurologic Exam: alert, oriented x 3, cooperative Respiratory Exam: normal breath sounds, lungs clear, No respiratory distress Cardiovascular Exam: regular rate/rhythm, normal heart sounds Gastrointestinal/Abdomen Exam: soft, No tenderness, No mass Skin Exam: normal color, warm, dry Final Diagnosis/Problem List - Final Discharge Diagnosis/Problem (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 Onset Date: ~11/01/18 Code(s): G03.2 - BENIGN RECURRENT MENINGITIS [MOLLARET] (2) Cephalgia Current Visit: No Status: Acute Onset Date: ~11/01/18 Code(s): R51 - HEADACHE (3) Exacerbation of chronic back pain Current Visit: No Status: Acute Onset Date: ~11/01/18 Code(s): M54.9 - DORSALGIA, UNSPECIFIED; G89.29 - OTHER CHRONIC PAIN (4) Diabetes mellitus Current Visit: Yes Status: Acute Code(s): E11.9 - TYPE 2 DIABETES MELLITUS WITHOUT COMPLICATIONS - Discharge Disposition: Home, Self-Care Condition: Stable Prescriptions: New Acyclovir 400 mg PO TID #15 tablet Prednisone 20 mg [Deltasone 20 mg] 20 mg PO UD #18 tablet Continue Enalapril Maleate 10 mg [Vasotec 10 MG] 20 mg PO HS Multivitamin [Multi-Vitamin Daily] 1 each PO DAILY Aspirin 81 mg PO DAILY Mineral Oil 30 ml PO TID Testosterone Cypionate 1.25 ml IM UD Duloxetine HCl [Cymbalta] 60 mg PO BID Prednisone 10 mg [Deltasone 10 mg] 15 mg PO DAILY PANTOPRAZOLE 40 mg Tablet [Protonix 40MG Tablet] 40 mg PO QPM Morphine Sulfate/Pf [Morphine 10 mg/10 ml Vial] 15.6 mg IJ DAILY L.acidoph,Paracasei, B.lactis [Probiotic] 2 each PO DAILY Metformin HCl 500 mg [Glucophage 500 MG] 500 mg PO BIDWM Morphine Sulfate 15 mg PO Q6H Instructions: Chronic Neck Pain (DC) Follow up with: ANN ALEXIS MD [Primary Care Provider] - 1 Week
== END 2020-07-30 08:30 | disposition home or self-care (01) | DRG 76 ==
LOC: ED 15:34 → MED SURG 17:17
PROVIDERS: ADMIT Family Medicine; ATTEND Family Medicine
DX: G03.2 Benign recurrent meningitis [Mollaret] (principal); R51 Headache; M54.9 Dorsalgia, unspecified; G89.29 Other chronic pain; M54.2 Cervicalgia; E11.9 Type 2 diabetes mellitus without complications; Z79.899 Other long term (current) drug therapy
CPT/HCPCS: 36000; 36415; 80048; 80053; 82962; 83036; 85025; 94762; 96374; 96375; 99284; J0133; J1170; J1720; J1817; J2405; J2930; A9270-GY

== ENCOUNTER 2020-11-19 20:06 | Inpatient (IN) | payer MEDICARE, BC ==
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
[2020-11-19] MEDS ORDERED: solu-CORTEF 100MG IV ONE (20:59)
[2020-11-19] MEDS ORDERED: ZOVIRAX IV SCH (21:00)
[2020-11-19] MEDS ORDERED: SODIUM CHLORIDE 0.9% IV SCH (21:00)
[2020-11-19] MEDS ORDERED: solu-CORTEF 100MG ONE (21:11)
[2020-11-19] MEDS ORDERED: Sodium Chloride 0.9% 100 ML IVPB 100 ML IV ONE (21:13)
[2020-11-19] MEDS ORDERED: Zovirax INJ IV ONE (21:13)
[2020-11-19] MEDS ORDERED: Hydromorphone 1 mg/ml Injection IV ONE (21:34)
[2020-11-19] MEDS ORDERED: Hydromorphone 1 mg/ml Injection ONE (21:37)
[2020-11-19 21:42] LABS: Absolute Neutrophil Ct (ANC) 8.78 (1.4-6.9); BASOPHIL % 0.2 % (0.0-0.4); Basophil (Absolute #) 0.03 (0-0.4); Eosinophil % 0.7 % (0.00-5.0); Eosinophil (Absolute #) 0.09 (0-0.5); Hemoglobin 15.7 gm/dl (12.5-18.0); Lymphocyte (Absolute #) 2.69 (1.0-4.6); Lymphocytes % 21.9 % (24.0-44.0); Mean Cell Volume 87.1 fl (78-100); Mean Corpuscular Hemoglobin 28.5 pg (26-32); Mean Corpuscular Hgb Concent. 32.7 g/dl (32-36); Mean Platelet Volume 9.7 fl (7.5-11.0); Monocyte (Absolute #) 0.72 (0.0-1.3); Monocytes % 5.8 % (0.0-12.0); Neutrophil % 71.4 % (36.0-66.0); Platelet Count 411 K/mm3 (150-450); Red Blood Count 5.51 M/mm3 (4.1-5.6); White Blood Count 12.3 K/mm3 (4.0-10.5)
[2020-11-19 21:56] LABS: ALBUMIN 4.4 g/dL (3.5-5.0); ALKALINE PHOSPHATASE 104 U/L (38-126); ANION GAP 12.6 MEQ/L (5-15); BLOOD UREA NITROGEN 14 mg/dL (9-20); CHLORIDE 101 mmol/L (98-107); Calcium 9.6 mg/dL (8.4-10.2); Carbon Dioxide 26 mmol/L (22-30); Creatinine 1 0.74 mg/dL (0.66-1.25); EST GLOMERULAR FILTRATION RATE > 60.0 ML/MIN; Glucose 167 mg/dL (74-106); Potassium 4.5 mmol/L (3.5-5.1); SGOT/AST 30 U/L (17-59); SGPT/ALT 35 U/L (0-50); SODIUM 135 mmol/L (137-145); Total Protein 7.7 g/dL (6.3-8.2)
[2020-11-19 22:15] LABS: INFLUENZA A NEGATIVE (NEGATIVE); INFLUENZA B NEGATIVE (NEGATIVE)
[2020-11-19] MEDS ORDERED: Hydromorphone 1 mg/ml Injection IV PRN (22:25)
[2020-11-19 23:07] LABS: Appearance SLIGHTLY CLOUDY (CLEAR); Bilirubin NEGATIVE (NEGATIVE); Blood NEGATIVE Ery/ul (0-5); Glucose 150 mg/dL (NEGATIVE); Ketones NEGATIVE (NEGATIVE); Leukocyte Esterase NEGATIVE (NEGATIVE); Nitrite NEGATIVE (NEGATIVE); Protein,Urine Dip NEGATIVE (Negative); Specific Gravity 1.019 (1.005-1.025); Urobilinogen NEGATIVE mg/dL (0-1)
[2020-11-19] MEDS: Sodium Chloride 0.9% 1000 ML 1,000 ML IV SCH (23:22)
[2020-11-19] MEDS: DILAUDID 1 MG/1ML PCA IV PRN (23:23)
[2020-11-19] MEDS: Vasotec 10 MG PO SCH (23:28)
[2020-11-19] MEDS: Protonix 40MG Tablet PO SCH (23:29)
[2020-11-19] MEDS: Cymbalta 30 MG Capsule PO SCH (23:29)
[2020-11-20] MEDS: MSIR 15 MG PO SCH ×5 (00:07→23:50)
[2020-11-20] MEDS ORDERED: Zovirax INJ IV ONE (03:12)
[2020-11-20] MEDS ORDERED: Sodium Chloride 0.9% 100 ML IVPB 100 ML IV ONE (03:13)
[2020-11-20] MEDS: SODIUM CHLORIDE 0.9% IV SCH ×3 (03:19→18:47)
[2020-11-20] MEDS: ZOVIRAX IV SCH ×3 (03:19→18:47)
[2020-11-20] MEDS: solu-CORTEF 100MG IV SCH ×3 (03:19→18:46)
[2020-11-20 05:12] LABS: Absolute Neutrophil Ct (ANC) 10.95 (1.4-6.9); BASOPHIL % 0.1 % (0.0-0.4); Basophil (Absolute #) 0.02 (0-0.4); Eosinophil % 0.1 % (0.00-5.0); Eosinophil (Absolute #) 0.01 (0-0.5); Hematocrit 44.3 % (42-50); Hemoglobin 14.4 gm/dl (12.5-18.0); Lymphocyte (Absolute #) 2.21 (1.0-4.6); Mean Cell Volume 87.9 fl (78-100); Mean Corpuscular Hemoglobin 28.6 pg (26-32); Mean Corpuscular Hgb Concent. 32.5 g/dl (32-36); Mean Platelet Volume 9.8 fl (7.5-11.0); Monocyte (Absolute #) 0.58 (0.0-1.3); Monocytes % 4.2 % (0.0-12.0); Neutrophil % 79.6 % (36.0-66.0); Platelet Count 391 K/mm3 (150-450); Red Blood Count 5.04 M/mm3 (4.1-5.6); White Blood Count 13.8 K/mm3 (4.0-10.5)
[2020-11-20 05:53] LABS: ALKALINE PHOSPHATASE 95 U/L (38-126); BLOOD UREA NITROGEN 13 mg/dL (9-20); CHLORIDE 100 mmol/L (98-107); Carbon Dioxide 25 mmol/L (22-30); EST GLOMERULAR FILTRATION RATE > 60.0 ML/MIN; Glucose 285 mg/dL (74-106); Potassium 4.7 mmol/L (3.5-5.1); SGOT/AST 31 U/L (17-59); SGPT/ALT 30 U/L (0-50); SODIUM 133 mmol/L (137-145)
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
[2020-11-20] MEDS ORDERED: MORPHINE SULFATE IJ SCH (10:00)
[2020-11-20] MEDS ORDERED: NON-FORMULARY ITEM (Aspirin [Aspirin] 81 MG) PO SCH (10:00)
[2020-11-20] MEDS ORDERED: ACIDOPH PARACASEI B LACTIS PO SCH (10:00)
[2020-11-20] MEDS: Cymbalta 30 MG Capsule PO SCH ×2 (10:20→22:06)
[2020-11-20] MEDS: ECOTRIN 81 MG PO SCH (10:20)
[2020-11-20] MEDS: Acidophilus TABLET PO SCH (10:21)
[2020-11-20] MEDS: Glucophage 500 MG PO SCH ×2 (10:21→17:55)
[2020-11-20] MEDS: MINERAL OIL PO SCH ×3 (10:21→22:07)
[2020-11-20] MEDS: PATIENT OWN MEDICATION IJ SCH (12:32)
[2020-11-20] MEDS: HUMALOG SQ PRN ×2 (17:55→22:08)
[2020-11-20] MEDS: DILAUDID 1 MG/1ML PCA IV PRN (19:27)
[2020-11-20] MEDS: Vasotec 10 MG PO SCH (22:06)
[2020-11-20] MEDS: Protonix 40MG Tablet PO SCH (23:50)
[2020-11-21] MEDS ORDERED: solu-CORTEF 100MG ONE (03:16)
[2020-11-21] MEDS: solu-CORTEF 100MG IV SCH ×3 (03:49→18:29)
[2020-11-21] MEDS: ZOVIRAX IV SCH ×3 (03:49→18:29)
[2020-11-21] MEDS: SODIUM CHLORIDE 0.9% IV SCH ×3 (03:49→18:29)
[2020-11-21] MEDS: MSIR 15 MG PO SCH ×3 (06:05→18:02)
[2020-11-21] MEDS: DILAUDID 1 MG/1ML PCA IV PRN ×2 (06:10→10:16)
--- NOTE | 2020-11-21 09:10 | PCM.NOTE ---
Date and Time: 11/21/20908 Subjective Assessment: headache and neck pain persist, no fever, tolerating po but still feels poorly. this is a typical flare Objective Exam General Appearance: no apparent distress, obese Neurologic Exam: alert, oriented x 3, cooperative Respiratory Exam: normal breath sounds, lungs clear, No respiratory distress Cardiovascular Exam: regular rate/rhythm, normal heart sounds Gastrointestinal/Abdomen Exam: soft Extremity Exam: normal inspection, normal range of motion OBJECTIVE DATA Vital Signs: Vital Signs - 24 hr Temp Pulse Resp BP Pulse Ox 11/21/20 07:24 98.0 F 92 H 18 106/71 95 11/21/20 06:47 97 11/21/20 04:00 97.7 F 80 16 121/80 98 11/21/20 00:00 97 H 18 114/65 96 11/20/20 20:00 97.8 F 101 H 18 111/77 98 11/20/20 19:14 97 11/20/20 16:00 97.8 F 103 H 16 104/63 93 L 11/20/20 11:53 97.9 F 101 H 16 111/69 96 Pain Assessment - Last Documented Pain Intensity 8 Pain Scale Used 0-10 Pain Scale Intake and Output: Intake & Output 11/18/20 11/19/20 11/20/20 11/21/20 11:59 11:59 11:59 11:59 Intake Total 1443 2838 Output Total 1100 1850 Balance 343 988 Weight 108.2 kg Lab Results: Lab Results-Last 24 Hours 11/20/20 11/20/20 11/20/20 Range/Units 11:41 16:48 21:50 POC Glucometer 227 H 260 H 219 H (74 to 106) mg/dL 11/21/20 Range/Units 07:03 POC Glucometer 178 H (74 to 106) mg/dL Assessment/Plan (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 Onset Date: ~11/01/18 Assessment & Plan: continue fluids, acyclovir and solu cortef, usually takes a few days to break a flare Code(s): G03.2 - BENIGN RECURRENT MENINGITIS [MOLLARET] (2) Cephalgia Current Visit: No Status: Acute Onset Date: ~11/01/18 Qualifiers: Code(s): R51 - HEADACHE * DO NOT USE * (3) Diabetes mellitus Current Visit: No Status: Acute Qualifiers: Diabetes mellitus type: type 2 Diabetes mellitus mcfp insulin use: without rat exterminator use Diabetes mellitus complication status: with neurologic complications Diabetes mellitus complication detail: with polyneuropathy Qualified Code(s): E11.42 - Type 2 diabetes mellitus with diabetic polyneuropathy Code(s): E11.9 - TYPE 2 DIABETES MELLITUS WITHOUT COMPLICATIONS (4) Opiate dependence Current Visit: No Status: Chronic Qualifiers: Substance use status: uncomplicated Qualified Code(s): F11.20 - Opioid dependence, uncomplicated Code(s): F11.20 - OPIOID DEPENDENCE, UNCOMPLICATED
[2020-11-21] MEDS: Acidophilus TABLET PO SCH (09:12)
[2020-11-21] MEDS: Cymbalta 30 MG Capsule PO SCH ×2 (09:12→21:38)
[2020-11-21] MEDS: Glucophage 500 MG PO SCH ×2 (09:13→17:15)
[2020-11-21] MEDS: ECOTRIN 81 MG PO SCH (09:13)
[2020-11-21] MEDS: MINERAL OIL PO SCH ×3 (09:14→21:39)
[2020-11-21] MEDS: PATIENT OWN MEDICATION IJ SCH (09:14)
[2020-11-21] MEDS: HUMALOG SQ PRN ×2 (17:15→21:39)
[2020-11-21] MEDS: Vasotec 10 MG PO SCH (21:38)
[2020-11-21] MEDS: Protonix 40MG Tablet PO SCH (21:38)
[2020-11-22] MEDS: ZOVIRAX IV SCH ×3 (03:01→17:55)
[2020-11-22] MEDS: solu-CORTEF 100MG IV SCH ×3 (03:01→17:55)
[2020-11-22] MEDS: SODIUM CHLORIDE 0.9% IV SCH ×3 (03:01→17:55)
[2020-11-22 05:31] LABS: Absolute Neutrophil Ct (ANC) 6.75 (1.4-6.9); BASOPHIL % 0.3 % (0.0-0.4); Basophil (Absolute #) 0.03 (0-0.4); Eosinophil % 0.6 % (0.00-5.0); Eosinophil (Absolute #) 0.07 (0-0.5); Hematocrit 41.3 % (42-50); Lymphocyte (Absolute #) 3.15 (1.0-4.6); Lymphocytes % 29.1 % (24.0-44.0); Mean Cell Volume 89.8 fl (78-100); Mean Corpuscular Hemoglobin 28.3 pg (26-32); Mean Corpuscular Hgb Concent. 31.5 g/dl (32-36); Mean Platelet Volume 9.8 fl (7.5-11.0); Monocyte (Absolute #) 0.82 (0.0-1.3); Monocytes % 7.6 % (0.0-12.0); Neutrophil % 62.4 % (36.0-66.0); Platelet Count 377 K/mm3 (150-450); Red Cell Distribution Width 15.5 % (11.5-14.0); White Blood Count 10.8 K/mm3 (4.0-10.5)
[2020-11-22 05:33] LABS: ALBUMIN 3.6 g/dL (3.5-5.0); ALKALINE PHOSPHATASE 89 U/L (38-126); ANION GAP 7.2 MEQ/L (5-15); BLOOD UREA NITROGEN 13 mg/dL (9-20); CHLORIDE 100 mmol/L (98-107); Calcium 8.8 mg/dL (8.4-10.2); Carbon Dioxide 33 mmol/L (22-30); Creatinine 1 0.76 mg/dL (0.66-1.25); EST GLOMERULAR FILTRATION RATE > 60.0 ML/MIN; Glucose 155 mg/dL (74-106); Potassium 3.9 mmol/L (3.5-5.1); SGOT/AST 19 U/L (17-59); SGPT/ALT 24 U/L (0-50); SODIUM 136 mmol/L (137-145); Total Protein 6.5 g/dL (6.3-8.2)
[2020-11-22] MEDS: MSIR 15 MG PO SCH ×4 (05:53→17:55)
[2020-11-22] MEDS: Glucophage 500 MG PO SCH ×2 (08:10→17:54)
--- NOTE | 2020-11-22 08:26 | PCM.NOTE ---
Date and Time: 11/22/20824 Subjective Assessment: slowly improving with symptoms, still requiring IV pain meds. he does not feel the current flare is resolved yet but moving that direction Objective Exam General Appearance: no apparent distress, obese Neurologic Exam: alert, oriented x 3, cooperative Respiratory Exam: normal breath sounds, lungs clear, No respiratory distress Cardiovascular Exam: regular rate/rhythm, normal heart sounds Gastrointestinal/Abdomen Exam: soft, No tenderness, No mass Extremity Exam: normal inspection, normal range of motion OBJECTIVE DATA Vital Signs: Vital Signs - 24 hr Temp Pulse Resp BP Pulse Ox 11/22/20 07:35 95.7 F 73 18 147/97 94 L 11/22/20 06:59 98 11/22/20 06:16 100 11/22/20 04:00 97.9 F 72 16 133/88 100 11/22/20 02:16 97 11/22/20 00:00 98.0 F 95 H 18 118/89 97 11/21/20 22:16 96 11/21/20 20:00 96.4 F 97 H 17 133/83 97 11/21/20 19:22 95 11/21/20 18:16 94 L 11/21/20 16:00 98.3 F 102 H 18 109/62 98 11/21/20 12:00 98.5 F 90 18 118/76 96 11/21/20 10:16 94 L Pain Assessment - Last Documented Pain Intensity 8 Pain Scale Used 0-10 Pain Scale Intake and Output: Intake & Output 11/19/20 11/20/20 11/21/20 11/22/20 11:59 11:59 11:59 11:59 Intake Total 1443 2838 2216 Output Total 1100 1850 2800 Balance 343 988 -584 Weight 108.2 kg Lab Results: Lab Results-Last 24 Hours 11/21/20 11/21/20 11/21/20 Range/Units 04:00 11:42 16:06 WBC (4.0-10.5) K/mm3 RBC (4.1-5.6) M/mm3 Hgb (12.5-18.0) gm/dl Hct (42-50) % MCV (78-100) fl MCH (26-32) pg MCHC (32-36) g/dl RDW (11.5-14.0) % Plt Count (150-450) K/mm3 MPV (7.5-11.0) fl Gran % (36.0-66.0) % Eos # (Auto) (0-0.5) Absolute Lymphs (auto) (1.0-4.6) Absolute Monos (auto) (0.0-1.3) Lymphocytes % (24.0-44.0) % Monocytes % (0.0-12.0) % Eosinophils % (0.00-5.0) % Basophils % (0.0-0.4) % Absolute Granulocytes (1.4-6.9) Basophils # (0-0.4) Sodium (137-145) mmol/L Potassium (3.5-5.1) mmol/L Chloride (98-107) mmol/L Carbon Dioxide (22-30) mmol/L Anion Gap (5-15) MEQ/L BUN (9-20) mg/dL Creatinine (0.66-1.25) mg/dL Estimated GFR ML/MIN Glucose (74-106) mg/dL POC Glucometer 160 H 237 H (74 to 106) mg/dL Hemoglobin A1c 7.95 H (4.5-6.0) % Calcium (8.4-10.2) mg/dL Total Bilirubin (0.2-1.3) mg/dL AST (17-59) U/L ALT (0-50) U/L Alkaline Phosphatase (38-126) U/L Serum Total Protein (6.3-8.2) g/dL Albumin (3.5-5.0) g/dL 11/21/20 11/21/20 11/22/20 Range/Units 21:19 22:07 04:35 WBC 10.8 H (4.0-10.5) K/mm3 RBC 4.60 (4.1-5.6) M/mm3 Hgb 13.0 (12.5-18.0) gm/dl Hct 41.3 L (42-50) % MCV 89.8 (78-100) fl MCH 28.3 (26-32) pg MCHC 31.5 L (32-36) g/dl RDW 15.5 H (11.5-14.0) % Plt Count 377 (150-450) K/mm3 MPV 9.8 (7.5-11.0) fl Gran % 62.4 (36.0-66.0) % Eos # (Auto) 0.07 (0-0.5) Absolute Lymphs (auto) 3.15 (1.0-4.6) Absolute Monos (auto) 0.82 (0.0-1.3) Lymphocytes % 29.1 (24.0-44.0) % Monocytes % 7.6 (0.0-12.0) % Eosinophils % 0.6 (0.00-5.0) % Basophils % 0.3 (0.0-0.4) % Absolute Granulocytes 6.75 (1.4-6.9) Basophils # 0.03 (0-0.4) Sodium (137-145) mmol/L Potassium (3.5-5.1) mmol/L Chloride (98-107) mmol/L Carbon Dioxide (22-30) mmol/L Anion Gap (5-15) MEQ/L BUN (9-20) mg/dL Creatinine (0.66-1.25) mg/dL Estimated GFR ML/MIN Glucose (74-106) mg/dL POC Glucometer 238 H 201 H (74 to 106) mg/dL Hemoglobin A1c (4.5-6.0) % Calcium (8.4-10.2) mg/dL Total Bilirubin (0.2-1.3) mg/dL AST (17-59) U/L ALT (0-50) U/L Alkaline Phosphatase (38-126) U/L Serum Total Protein (6.3-8.2) g/dL Albumin (3.5-5.0) g/dL 11/22/20 11/22/20 Range/Units 04:35 06:24 WBC (4.0-10.5) K/mm3 RBC (4.1-5.6) M/mm3 Hgb (12.5-18.0) gm/dl Hct (42-50) % MCV (78-100) fl MCH (26-32) pg MCHC (32-36) g/dl RDW (11.5-14.0) % Plt Count (150-450) K/mm3 MPV (7.5-11.0) fl Gran % (36.0-66.0) % Eos # (Auto) (0-0.5) Absolute Lymphs (auto) (1.0-4.6) Absolute Monos (auto) (0.0-1.3) Lymphocytes % (24.0-44.0) % Monocytes % (0.0-12.0) % Eosinophils % (0.00-5.0) % Basophils % (0.0-0.4) % Absolute Granulocytes (1.4-6.9) Basophils # (0-0.4) Sodium 136 L (137-145) mmol/L Potassium 3.9 (3.5-5.1) mmol/L Chloride 100 (98-107) mmol/L Carbon Dioxide 33 H (22-30) mmol/L Anion Gap 7.2 (5-15) MEQ/L BUN 13 (9-20) mg/dL Creatinine 0.76 (0.66-1.25) mg/dL Estimated GFR > 60.0 ML/MIN Glucose 155 H (74-106) mg/dL POC Glucometer 147 H (74 to 106) mg/dL Hemoglobin A1c (4.5-6.0) % Calcium 8.8 (8.4-10.2) mg/dL Total Bilirubin 0.30 (0.2-1.3) mg/dL AST 19 (17-59) U/L ALT 24 (0-50) U/L Alkaline Phosphatase 89 (38-126) U/L Serum Total Protein 6.5 (6.3-8.2) g/dL Albumin 3.6 (3.5-5.0) g/dL Multi-Disciplinary Progress Notes: Multi-Disciplinary Progress Notes 11/21/20 10:21 Case Management Note by Kasie Garcia NO CHANGE IN DC PLANS AT THIS TIME. 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 hopefully will be ready for discharge tomorrow. Code(s): G03.2 - BENIGN RECURRENT MENINGITIS [MOLLARET] (2) Cephalgia Current Visit: No Status: Acute Onset Date: ~11/01/18 Qualifiers: Code(s): R51 - HEADACHE * DO NOT USE * (3) Diabetes mellitus Current Visit: No Status: Acute Qualifiers: Diabetes mellitus type: type 2 Diabetes mellitus longterm insulin use: without longterm use Diabetes mellitus complication status: with neurologic complications Diabetes mellitus complication detail: with polyneuropathy Qualified Code(s): E11.42 - Type 2 diabetes mellitus with diabetic polyneuropathy Code(s): E11.9 - TYPE 2 DIABETES MELLITUS WITHOUT COMPLICATIONS (4) Opiate dependence Current Visit: No Status: Chronic Qualifiers: Substance use status: uncomplicated Qualified Code(s): F11.20 - Opioid dependence, uncomplicated Code(s): F11.20 - OPIOID DEPENDENCE, UNCOMPLICATED
[2020-11-22] MEDS: ECOTRIN 81 MG PO SCH (11:11)
[2020-11-22] MEDS: Acidophilus TABLET PO SCH (11:11)
[2020-11-22] MEDS: Cymbalta 30 MG Capsule PO SCH ×2 (11:11→21:57)
[2020-11-22] MEDS: PATIENT OWN MEDICATION IJ SCH (11:33)
[2020-11-22] MEDS: MINERAL OIL PO SCH ×3 (11:33→21:58)
[2020-11-22] MEDS: Sodium Chloride 0.9% 1000 ML 1,000 ML IV SCH (13:43)
[2020-11-22] MEDS: HUMALOG SQ PRN ×2 (17:56→22:04)
[2020-11-22] MEDS: Protonix 40MG Tablet PO SCH (21:58)
[2020-11-22] MEDS: Vasotec 10 MG PO SCH (21:58)
[2020-11-22] MEDS: DILAUDID 1 MG/1ML PCA IV PRN (22:37)
[2020-11-23] MEDS: MSIR 15 MG PO SCH ×4 (00:07→17:52)
[2020-11-23] MEDS: ZOVIRAX IV SCH ×3 (03:12→21:52)
[2020-11-23] MEDS: solu-CORTEF 100MG IV SCH ×3 (03:12→21:52)
[2020-11-23] MEDS: SODIUM CHLORIDE 0.9% IV SCH ×3 (03:12→21:52)
[2020-11-23] MEDS: Glucophage 500 MG PO SCH ×2 (08:04→17:52)
--- NOTE | 2020-11-23 09:03 | PCM.NOTE ---
Date and Time: 11/23/20901 Subjective Assessment: back and leg pain improved, still has significant neck pain and stiffness with headache but overall improving. Objective Exam General Appearance: no apparent distress, obese Neurologic Exam: alert, oriented x 3, cooperative Skin Exam: normal color, warm, dry Respiratory Exam: normal breath sounds, lungs clear, No respiratory distress Cardiovascular Exam: regular rate/rhythm, normal heart sounds Gastrointestinal/Abdomen Exam: soft, No tenderness, No mass OBJECTIVE DATA Vital Signs: Vital Signs - 24 hr Temp Pulse Resp BP Pulse Ox 11/23/20 07:09 97.4 F 81 16 129/77 96 11/23/20 06:48 96 11/23/20 06:37 97 11/23/20 06:16 94 L 11/23/20 04:00 98.1 F 83 18 125/82 94 L 11/23/20 02:37 98 11/23/20 02:16 98 11/23/20 00:00 98 F 71 18 150/92 100 11/22/20 22:37 95 11/22/20 22:16 96 11/22/20 20:00 97 11/22/20 19:51 98.0 F 90 20 124/66 97 11/22/20 19:19 97 11/22/20 16:00 95.4 F 101 H 18 151/91 96 11/22/20 11:24 97.1 F 80 18 128/89 96 Pain Assessment - Last Documented Pain Intensity 7 Pain Scale Used 0-10 Pain Scale Intake and Output: Intake & Output 11/20/20 11/21/20 11/22/20 11/23/20 11:59 11:59 11:59 11:59 Intake Total 1443 2838 2216 2362 Output Total 1100 1850 2800 4295 Balance 343 302 -550 -2764 Weight 108.2 kg 108.2 kg Lab Results: Lab Results-Last 24 Hours 11/22/20 11/22/20 11/22/20 Range/Units 11:15 16:03 20:58 POC Glucometer 198 H 313 H 242 H (74 to 106) mg/dL 11/23/20 Range/Units 06:47 POC Glucometer 145 H (74 to 106) mg/dL Multi-Disciplinary Progress Notes: Multi-Disciplinary Progress Notes 11/22/20 11:54 Case Management Note by Garcia,Kasie NO CHANGE IN DC PLANS AT THIS TIME- WILL CONTINUE TO FOLLOW Initialized on 11/22/20 11:54 - END OF NOTE Assessment/Plan (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 likely home later today or in the morning. Code(s): G03.2 - BENIGN RECURRENT MENINGITIS [MOLLARET] (2) Cephalgia Current Visit: No Status: Acute Onset Date: ~11/01/18 Qualifiers: Code(s): R51 - HEADACHE * DO NOT USE * (3) Diabetes mellitus Current Visit: No Status: Acute Qualifiers: Diabetes mellitus type: type 2 Diabetes mellitus superintendent terminal insulin use: without mcfp use Diabetes mellitus complication status: with neurologic complications Diabetes mellitus complication detail: with polyneuropathy Qualified Code(s): E11.42 - Type 2 diabetes mellitus with diabetic polyneuropathy Code(s): E11.9 - TYPE 2 DIABETES MELLITUS WITHOUT COMPLICATIONS (4) Opiate dependence Current Visit: No Status: Chronic Qualifiers: Substance use status: uncomplicated Qualified Code(s): F11.20 - Opioid dependence, uncomplicated Code(s): F11.20 - OPIOID DEPENDENCE, UNCOMPLICATED
[2020-11-23] MEDS: Cymbalta 30 MG Capsule PO SCH ×2 (09:30→21:52)
[2020-11-23] MEDS: ECOTRIN 81 MG PO SCH (09:30)
[2020-11-23] MEDS: Acidophilus TABLET PO SCH (09:30)
[2020-11-23] MEDS: MINERAL OIL PO SCH ×3 (09:31→21:53)
[2020-11-23] MEDS: PATIENT OWN MEDICATION IJ SCH (09:54)
[2020-11-23] MEDS: HUMALOG SQ PRN ×3 (12:21→22:07)
[2020-11-23] MEDS: Sodium Chloride 0.9% 1000 ML 1,000 ML IV SCH (21:44)
[2020-11-23] MEDS: Vasotec 10 MG PO SCH (21:52)
[2020-11-23] MEDS: Protonix 40MG Tablet PO SCH (21:53)
[2020-11-24] MEDS: MSIR 15 MG PO SCH ×4 (00:23→17:11)
[2020-11-24] MEDS: Sodium Chloride 0.9% 1000 ML 1,000 ML IV SCH ×2 (00:23→21:06)
[2020-11-24] MEDS: ZOVIRAX IV SCH ×3 (04:09→18:04)
[2020-11-24] MEDS: SODIUM CHLORIDE 0.9% IV SCH ×3 (04:09→18:04)
[2020-11-24] MEDS: solu-CORTEF 100MG IV SCH ×3 (04:09→18:04)
[2020-11-24] MEDS: DILAUDID 1 MG/1ML PCA IV PRN ×2 (06:19→10:56)
[2020-11-24] MEDS: Glucophage 500 MG PO SCH ×2 (07:40→16:02)
--- NOTE | 2020-11-24 08:49 | PCM.NOTE ---
Date and Time: 11/24/20846 Subjective Assessment: doing ok - Review of Systems Constitutional: No Fever, No Chills Eyes: No Symptoms Ears, Nose, & Throat: No Symptoms Respiratory: No Cough, No Short Of Breath Cardiac: No Chest Pain, No Edema, No Syncope Abdominal/Gastrointestinal: No Abdominal Pain, No Nausea, No Vomiting, No Diarrhea Genitourinary Symptoms: No Dysuria Musculoskeletal: No Back Pain, No Neck Pain Skin: No Rash Neurological: No Dizziness, No Focal Weakness, No Sensory Changes Psychological: No Symptoms Endocrine: No Symptoms Hematologic/Lymphatic: No Symptoms Immunological/Allergic: No Symptoms Objective Exam General Appearance: no apparent distress, alert Neurologic Exam: alert, oriented x 3, cooperative, normal mood/affect, nml cerebellar function, sensation nml, No motor deficits Skin Exam: normal color, warm, dry Eye Exam: PERRL, EOMI, eyes nml inspection Ears, Nose, Throat Exam: normal ENT inspection, pharynx normal, moist mucous membranes Neck Exam: normal inspection, non-tender, supple, full range of motion Respiratory Exam: normal breath sounds, lungs clear, No respiratory distress Cardiovascular Exam: regular rate/rhythm, normal heart sounds Gastrointestinal/Abdomen Exam: soft, No tenderness, No mass Extremity Exam: normal inspection, normal range of motion Back Exam: normal inspection, normal range of motion, No CVA tenderness, No vertebral tenderness Male Genitalia Exam: deferred Rectal Exam: deferred OBJECTIVE DATA Vital Signs: Vital Signs - 24 hr Temp Pulse Resp BP Pulse Ox 11/24/20 08:11 96 11/24/20 08:02 97.8 F 76 18 119/74 97 11/24/20 07:34 97.8 F 76 18 119/74 97 11/24/20 06:19 99 11/24/20 04:00 97 F 72 18 155/83 100 11/23/20 23:55 98.1 F 86 20 133/67 100 11/23/20 20:00 97.4 F 95 H 18 144/81 97 11/23/20 19:17 97 11/23/20 16:00 97.6 F 96 H 18 132/68 97 11/23/20 11:37 97.2 F 76 16 137/82 100 Pain Assessment - Last Documented Pain Intensity 7 Pain Scale Used 0-10 Pain Scale Intake and Output: Intake & Output 0111/22/20 11/23/20 11/24/20 11:59 11:59 11:59 11:59 Intake Total 2838 2216 2362 4188 Output Total 1850 2800 4299 6013 Balance 598 -720 -9549 818 Weight 108.2 kg Lab Results: Lab Results-Last 24 Hours 11/23/20 11/23/20 11/23/20 Range/Units 11:05 16:04 20:40 POC Glucometer 228 H 272 H 211 H (74 to 106) mg/dL 11/24/20 Range/Units 06:59 POC Glucometer 181 H (74 to 106) mg/dL Multi-Disciplinary Progress Notes: Multi-Disciplinary Progress Notes 11/23/20 10:09 Case Management Note by Kasie Garcia PATIENT CONTINUES TO DENY ANY NEEDS REGARDING DC AT THISTIME Initialized on 11/23/20 10:09 - END OF NOTE Assessment/Plan (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 Onset Date: ~11/01/18 Code(s): G03.2 - BENIGN RECURRENT MENINGITIS [MOLLARET] (2) Cephalgia Current Visit: Yes Status: Acute Onset Date: ~11/01/18 Qualifiers: Headache type: unspecified Headache chronicity pattern: episodic headache Code(s): R51 - HEADACHE * DO NOT USE * (3) Diabetes mellitus Current Visit: Yes Status: Chronic Qualifiers: Diabetes mellitus type: type 2 Diabetes mellitus correction insulin use: without termite helper use Diabetes mellitus complication status: with neurologic complications Diabetes mellitus complication detail: with polyneuropathy Qualified Code(s): E11.42 - Type 2 diabetes mellitus with diabetic po lyneuropathy Code(s): E11.9 - TYPE 2 DIABETES MELLITUS WITHOUT COMPLICATIONS
[2020-11-24] MEDS: Acidophilus TABLET PO SCH (09:03)
[2020-11-24] MEDS: ECOTRIN 81 MG PO SCH (09:03)
[2020-11-24] MEDS: Cymbalta 30 MG Capsule PO SCH ×2 (09:03→21:06)
[2020-11-24] MEDS: PATIENT OWN MEDICATION IJ SCH (09:04)
[2020-11-24] MEDS: MINERAL OIL PO SCH ×3 (09:04→21:07)
[2020-11-24 10:44] LABS: Absolute Neutrophil Ct (ANC) 9.22 (1.4-6.9); BASOPHIL % 0.2 % (0.0-0.4); Basophil (Absolute #) 0.03 (0-0.4); Eosinophil % 0.1 % (0.00-5.0); Eosinophil (Absolute #) 0.01 (0-0.5); Hemoglobin 13.2 gm/dl (12.5-18.0); Lymphocyte (Absolute #) 3.02 (1.0-4.6); Lymphocytes % 23.2 % (24.0-44.0); Mean Corpuscular Hemoglobin 28.3 pg (26-32); Mean Corpuscular Hgb Concent. 32.2 g/dl (32-36); Mean Platelet Volume 9.2 fl (7.5-11.0); Monocyte (Absolute #) 0.72 (0.0-1.3); Monocytes % 5.5 % (0.0-12.0); Platelet Count 385 K/mm3 (150-450); Red Blood Count 4.66 M/mm3 (4.1-5.6); Red Cell Distribution Width 15.2 % (11.5-14.0)
[2020-11-24 11:02] LABS: ANION GAP 8.4 MEQ/L (5-15); BLOOD UREA NITROGEN 12 mg/dL (9-20); CHLORIDE 100 mmol/L (98-107); Carbon Dioxide 30 mmol/L (22-30); Creatinine 1 0.73 mg/dL (0.66-1.25); EST GLOMERULAR FILTRATION RATE > 60.0 ML/MIN; Glucose 185 mg/dL (74-106); Potassium 3.8 mmol/L (3.5-5.1); SODIUM 134 mmol/L (137-145)
[2020-11-24] MEDS: Levofloxacin 500 MG Tablet PO SCH (12:02)
[2020-11-24 14:41] LABS: Basophil 1 % (0.0-1.0); Lymphocytes 21 % (24-44); Monocyte 7 % (0.0-12.0); Neutrophils 71 % (36.-66.); Total Cells Counted 100
[2020-11-24 14:42] LABS: Platelet Estimate NORMAL (NORMAL)
[2020-11-24] MEDS: Protonix 40MG Tablet PO SCH (21:06)
[2020-11-24] MEDS: Vasotec 10 MG PO SCH (21:06)
[2020-11-24] MEDS: HUMALOG SQ PRN (21:11)
[2020-11-25] MEDS: MSIR 15 MG PO SCH ×6 (00:21→23:24)
[2020-11-25] MEDS: SODIUM CHLORIDE 0.9% IV SCH ×3 (02:34→18:07)
[2020-11-25] MEDS: ZOVIRAX IV SCH ×3 (02:34→18:07)
[2020-11-25] MEDS: solu-CORTEF 100MG IV SCH ×3 (02:34→18:07)
[2020-11-25] MEDS ORDERED: MSIR 15 MG ONE (06:19)
[2020-11-25] MEDS: DILAUDID 1 MG/1ML PCA IV PRN ×2 (06:35→15:12)
[2020-11-25] MEDS: Glucophage 500 MG PO SCH ×2 (08:22→17:01)
[2020-11-25] MEDS: Acidophilus TABLET PO SCH (09:12)
[2020-11-25] MEDS: Levofloxacin 500 MG Tablet PO SCH (09:13)
[2020-11-25] MEDS: ECOTRIN 81 MG PO SCH (09:13)
[2020-11-25] MEDS: PATIENT OWN MEDICATION IJ SCH (09:18)
[2020-11-25] MEDS: Cymbalta 30 MG Capsule PO SCH ×2 (09:22→23:24)
[2020-11-25] MEDS: MINERAL OIL PO SCH ×3 (09:33→23:30)
--- NOTE | 2020-11-25 11:58 | PCM.NOTE ---
Date and Time: 11/25/20 1157 Subjective Assessment: c/o sore throat. - Review of Systems Constitutional: No Fever, No Chills Eyes: No Symptoms Ears, Nose, & Throat: No Symptoms, Throat Pain Respiratory: No Cough, No Short Of Breath Cardiac: No Chest Pain, No Edema, No Syncope Abdominal/Gastrointestinal: No Abdominal Pain, No Nausea, No Vomiting, No Diarrhea Genitourinary Symptoms: No Dysuria Musculoskeletal: No Back Pain, No Neck Pain Skin: No Rash Neurological: No Dizziness, No Focal Weakness, No Sensory Changes Psychological: No Symptoms Endocrine: No Symptoms Hematologic/Lymphatic: No Symptoms Immunological/Allergic: No Symptoms Objective Exam General Appearance: no apparent distress, alert Neurologic Exam: alert, oriented x 3, cooperative, normal mood/affect, nml cerebellar function, sensation nml, No motor deficits Skin Exam: normal color, warm, dry Eye Exam: PERRL, EOMI, eyes nml inspection Ears, Nose, Throat Exam: normal ENT inspection, pharynx normal, moist mucous membranes Neck Exam: normal inspection, non-tender, supple, full range of motion Respiratory Exam: normal breath sounds, lungs clear, No respiratory distress Cardiovascular Exam: regular rate/rhythm, normal heart sounds Gastrointestinal/Abdomen Exam: soft, No tenderness, No mass Extremity Exam: normal inspection, normal range of motion Back Exam: normal inspection, normal range of motion, No CVA tenderness, No vertebral tenderness Male Genitalia Exam: deferred Rectal Exam: deferred OBJECTIVE DATA Vital Signs: Vital Signs - 24 hr Temp Pulse Resp BP Pulse Ox 11/25/20 08:20 96 11/25/20 08:00 98.1 F 80 18 124/72 98 11/25/20 06:35 97 11/25/20 03:54 96.8 F 79 20 129/77 100 11/25/20 00:00 97.9 F 85 16 136/80 96 11/24/20 20:15 94 L 11/24/20 19:59 97.9 F 97 H 18 127/79 98 11/24/20 18:00 98 11/24/20 16:00 98.1 F 75 16 130/69 96 11/24/20 14:19 98 Pain Assessment - Last Documented Pain Intensity 6 Pain Scale Used 0-10 Pain Scale Intake and Output: Intake & Output 11/22/20 11/23/20 11/24/2021 11:59 11:59 11:59 11:59 Intake Total 6401 3184 7265 3001 Output Total 0032 6030 8379 4203 Balance -584 -1933 193 -1199 Weight 108.2 kg Lab Results: Lab Results-Last 24 Hours 11/24/20 11/24/20 11/24/20 Range/Units 10:30 16:28 20:14 WBC 13.0 H (4.0-10.5) K/mm3 RBC 4.66 (4.1-5.6) M/mm3 Hgb 13.2 (12.5-18.0) gm/dl Hct 41.0 L (42-50) % MCV 88.0 (78-100) fl MCH 28.3 (26-32) pg MCHC 32.2 (32-36) g/dl RDW 15.2 H (11.5-14.0) % Plt Count 385 (150-450) K/mm3 MPV 9.2 (7.5-11.0) fl Gran % 71.0 H (36.0-66.0) % Eos # (Auto) 0.01 (0-0.5) Absolute Lymphs (auto) 3.02 (1.0-4.6) Absolute Monos (auto) 0.72 (0.0-1.3) Lymphocytes % 23.2 L (24.0-44.0) % Monocytes % 5.5 (0.0-12.0) % Eosinophils % 0.1 (0.00-5.0) % Basophils % 0.2 (0.0-0.4) % Absolute Granulocytes 9.22 H (1.4-6.9) Segmented Neutrophils 71 H (36.-66.) % Lymphocytes (Manual) 21 L (24-44) % Monocytes (Manual) 7 (0.0-12.0) % Basophils (Manual) 1 (0.0-1.0) % Basophils # 0.03 (0-0.4) Platelet Estimate NORMAL (NORMAL) RBC Morphology NORMAL POC Glucometer 175 H 243 H (74 to 106) mg/dL 11/25/20 Range/Units 07:38 WBC (4.0-10.5) K/mm3 RBC (4.1-5.6) M/mm3 Hgb (12.5-18.0) gm/dl Hct (42-50) % MCV (78-100) fl MCH (26-32) pg MCHC (32-36) g/dl RDW (11.5-14.0) % Plt Count (150-450) K/mm3 MPV (7.5-11.0) fl Gran % (36.0-66.0) % Eos # (Auto) (0-0.5) Absolute Lymphs (auto) (1.0-4.6) Absolute Monos (auto) (0.0-1.3) Lymphocytes % (24.0-44.0) % Monocytes % (0.0-12.0) % Eosinophils % (0.00-5.0) % Basophils % (0.0-0.4) % Absolute Granulocytes (1.4-6.9) Segmented Neutrophils (36.-66.) % Lymphocytes (Manual) (24-44) % Monocytes (Manual) (0.0-12.0) % Basophils (Manual) (0.0-1.0) % Basophils # (0-0.4) Platelet Estimate (NORMAL) RBC Morphology POC Glucometer 181 H (74 to 106) mg/dL Radiology Exams: Radiology Procedures Category Date Time Status Portable Chest [CHEST 1 VIEW (PORTABLE)] Routine Exams 11/25/20 08:54 Taken Assessment/Plan (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 Onset Date: ~11/01/18 Assessment & Plan: Chief Complaint Diagnosis MOLLARET'S SYNDROME, ASEPTIC MENINGITIS Allergies Allergy/AdvReac Type Severity Reaction Status Date / Time pregabalin [From Lyrica] AdvReac Severe Hives Verified 11/19/20 22:54 azithromycin [From Zmax] AdvReac Mild Verified 11/19/20 22:54 Vital Signs (Last 24 hours) Temp Pulse Resp BP Pulse Ox 11/25/20 08:20 96 11/25/20 08:00 98.1 F 80 18 124/72 98 11/25/20 06:35 97 11/25/20 03:54 96.8 F 79 20 129/77 100 11/25/20 00:00 97.9 F 85 16 136/80 96 11/24/20 20:15 94 L 11/24/20 19:59 97.9 F 97 H 18 127/79 98 11/24/20 18:00 98 11/24/20 16:00 98.1 F 75 16 130/69 96 11/24/20 14:19 98 Current Medications Generic Name Dose Route Start Last Admin Trade Name Freq PRN Reason Stop Dose Admin Aspirin 81 mg 11/20/20 10:00 11/25/20 09:13 Ecotrin 81 Mg PO 12/20/20 09:59 81 mg DAILY GLENNA Administration Duloxetine HCl 60 mg 11/19/20 23:30 11/25/20 09:22 Cymbalta 30 Mg Capsule PO 12/19/20 23:29 60 mg BID GLENNA Administration Enalapril Maleate 20 mg 11/19/20 23:30 11/24/20 21:06 Vasotec 10 Mg PO 12/19/20 23:29 20 mg HS GLENNA Administration Hydrocortisone Sodium Succinate 100 mg 11/20/20 03:00 11/25/20 11:18 Solu-Cortef 100mg IV 12/20/20 02:59 100 mg Q8H GLENNA Administration Hydromorphone HCl 30 mg 11/25/20 06:29 11/25/20 06:35 Dilaudid 1 Mg/1ml [employer]an [employer] Specialist IV 11/30/20 06:28 1 mg UD PRN Administration PAIN Acyclovir Sodium 500 mg/ 100 mls @ 100 mls/hr 11/20/20 03:00 11/25/20 02:34 Sodium Chloride IV 12/20/20 02:59 100 mls/hr Q8H GLENNA Administration Sodium Chloride 1,000 mls @ 20 mls/hr 11/19/20 22:45 11/24/20 21:06 Sodium Chloride 0.9% 1000 Ml IV 12/19/20 22:44 20 mls/hr .Q24H GLENNA Administration Insulin Human Lispro 0 unit 11/20/20 14:01 11/24/20 21:11 Humalog SQ 12/20/20 14:00 2 unit UD PRN Administration HYPERGLYCEMIA Lactobacillus Acidophilus 2 tab 11/20/20 10:00 11/25/20 09:12 Acidophilus Tablet PO 12/20/20 09:59 2 tab DAILY GLENNA Administration Levofloxacin 500 mg 11/24/20 12:00 11/25/20 09:13 Levofloxacin 500 Mg Tablet PO 11/29/20 11:59 500 mg DAILY GLENNA Administration Metformin HCl 500 mg 11/20/20 10:00 11/25/20 08:22 Glucophage 500 Mg PO 12/20/20 09:59 500 mg BIDWM GLENNA Administration Mineral Oil 30 ml 11/20/20 10:00 11/25/20 09:33 Mineral Oil PO 12/20/20 09:59 30 ml TID GLENNA Administration Morphine Sulfate 15 mg 11/25/20 06:00 11/25/20 06:24 Msir 15 Mg PO 12/07/20 12:00 15 mg Q6H GLENNA Administration Pantoprazole Sodium 40 mg 11/19/20 23:30 11/24/20 21:06 Protonix 40mg Tablet PO 12/19/20 23:29 40 mg HS GLENNA Administration Morphine Pain Pump 0 each 11/20/20 10:00 11/25/20 09:18 IJ 12/20/20 09:59 15.6 each DAILY GLENNA Administration Discontinued Medications Generic Name Dose Route Start Last Admin Trade Name Freq PRN Reason Stop Dose Admin Acyclovir Sodium Confirm 11/19/20 21:13 Zovirax Inj Administered 11/19/20 21:14 Dose 500 mg IV .STK-MED ONE Acyclovir Sodium Confirm 11/20/20 03:12 Zovirax Inj Administered 11/20/20 03:13 Dose 500 mg IV .STK-MED ONE Hydrocortisone Sodium Succinate 100 mg 11/19/20 20:59 11/19/20 21:19 Solu-Cortef 100mg IV 11/19/20 21:00 100 mg STAT ONE Administration Hydrocortisone Sodium Succinate Confirm 11/19/20 21:11 Solu-Cortef 100mg Administered 11/19/20 21:12 Dose 100 mg .ROUTE .STK-MED ONE Hydrocortisone Sodium Succinate Confirm 11/21/20 03:16 Solu-Cortef 100mg Administered 11/21/20 03:17 Dose 100 mg .ROUTE .STK-MED ONE Hydromorphone HCl 1 mg 11/19/20 21:34 11/19/20 21:38 Hydromorphone 1 Mg/Ml Injection IV 11/19/20 21:35 1 mg STAT ONE Administration Hydromorphone HCl Confirm 11/19/20 21:37 Hydromorphone 1 Mg/Ml Injection Administered 11/19/20 21:38 Dose 1 mg .ROUTE .STK-MED ONE Hydromorphone HCl 1 mg 11/19/20 22:25 Hydromorphone 1 Mg/Ml Injection IV 11/24/20 22:24 Q4H PRN PRN PAIN Hydromorphone HCl 30 mg 11/19/20 22:25 11/24/20 10:56 Dilaudid 1 Mg/1ml [employer] IV 11/24/20 22:24 30 mg UD PRN Administration PAIN Acyclovir Sodium 500 mg/ 100 mls @ 100 mls/hr 11/19/20 21:00 11/19/20 21:21 Sodium Chloride IV 12/19/20 20:59 100 mls/hr Q8H GLENNA Administration Sodium Chloride Confirm 11/19/20 21:13 Sodium Chloride 0.9% 100 Ml Ivpb Administered 11/19/20 21:14 Dose 100 mls @ ud IV .STK-MED ONE Sodium Chloride Confirm 11/20/20 03:13 Sodium Chloride 0.9% 100 Ml Ivpb Administered 11/20/20 03:14 Dose 100 mls @ ud IV .STK-MED ONE Morphine Sulfate 15 mg 11/20/20 00:00 11/25/20 11:18 Msir 15 Mg PO 11/25/20 00:00 15 mg 06,12,18,00 GLENNA Administration Morphine Sulfate Confirm 11/25/20 06:19 Msir 15 Mg Administered 11/25/20 06:20 Dose 15 mg .ROUTE .STK-MED ONE Intake & Output (Last 24 hours) 11/22/20 11/23/20 11/24/20 11/25/20 11:59 11:59 11:59 11:59 Intake Total 2216 2362 4188 3001 Output Total 2800 4295 3995 4200 Balance -657 -0990 212 -5341 Weight 108.2 kg Microbiology Results (Last 24 hours) 11/19/20 21:30 Blood Blood Culture Gram Stain - Final Not Reportable 11/19/20 21:30 Blood Blood Culture - Final NO GROWTH 11/19/20 21:25 Blood Blood Culture Gram Stain - Final Not Reportable 11/19/20 21:25 Blood Blood Culture - Final NO GROWTH Laboratory Results (Last 24 hours) 11/25/20 11/24/20 11/24/20 07:38 20:14 16:28 WBC RBC Hgb Hct MCV MCH MCHC RDW Plt Count MPV Gran % Eos # (Auto) Absolute Lymphs (auto) Absolute Monos (auto) Lymphocytes % Monocytes % Eosinophils % Basophils % Absolute Granulocytes Segmented Neutrophils Lymphocytes (Manual) Monocytes (Manual) Basophils (Manual) Basophils # Platelet Estimate RBC Morphology POC Glucometer 181 H 243 H 175 H 11/24/20 10:30 WBC 13.0 H RBC 4.66 Hgb 13.2 Hct 41.0 L MCV 88.0 MCH 28.3 MCHC 32.2 RDW 15.2 H Plt Count 385 MPV 9.2 Gran % 71.0 H Eos # (Auto) 0.01 Absolute Lymphs (auto) 3.02 Absolute Monos (auto) 0.72 Lymphocytes % 23.2 L Monocytes % 5.5 Eosinophils % 0.1 Basophils % 0.2 Absolute Granulocytes 9.22 H Segmented Neutrophils 71 H Lymphocytes (Manual) 21 L Monocytes (Manual) 7 Basophils (Manual) 1 Basophils # 0.03 Platelet Estimate NORMAL RBC Morphology NORMAL POC Glucometer Orders (Last 24 hours) Category Date Time Status Portable Chest [CHEST 1 VIEW (PORTABLE)] Routine Exams 11/25/20 08:54 Taken POCT GLUCOSE Stat Lab 11/24/20 11:18 Completed POCT GLUCOSE Stat Lab 11/24/20 16:28 Completed POCT GLUCOSE Stat Lab 11/24/20 20:14 Completed POCT GLUCOSE Stat Lab 11/25/20 07:36 Received POCT GLUCOSE Stat Lab 11/25/20 07:38 Completed Hydromorphone HCl 30 mg/30 ml* [Dilaudid 1 mg/1Ml AUDIT PARTNER Med 11/25/20 06:29 Active *] 30 mg IV UD PRN Levofloxacin [Levofloxacin 500 MG Tablet] Med 11/24/20 12:00 Active 500 mg PO DAILY Morphine Sulfate Ir 15 mg [Msir 15 mg] Med 11/25/20 06:19 Discontinued 15 mg .ROUTE .STK-MED ONE Morphine Sulfate Ir 15 mg [Msir 15 mg] Med 11/25/20 06:00 Active 15 mg PO Q6H Code(s): G03.2 - BENIGN RECURRENT MENINGITIS [MOLLARET] (2) Cephalgia Current Visit: Yes Status: Acute Onset Date: ~11/01/18 Qualifiers: Headache type: unspecified Headache chronicity pattern: episodic headache Code(s): R51 - HEADACHE * DO NOT USE * (3) Diabetes mellitus Current Visit: Yes Status: Chronic Qualifiers: Diabetes mellitus type: type 2 Diabetes mellitus mcc insulin use: without ferry terminal agent use Diabetes mellitus complication status: with neurologic complications Diabetes mellitus complication detail: with polyneuropathy Qualified Code(s): E11.42 - Type 2 diabetes mellitus with diabetic polyneuropathy Code(s): E11.9 - TYPE 2 DIABETES MELLITUS WITHOUT COMPLICATIONS
[2020-11-25] MEDS ORDERED: Tessalon Perles 100 MG PO PRN (14:57)
[2020-11-25] MEDS ORDERED: PROVENTIL 2.5 MG/3 ML NEB IH ONE (15:16)
[2020-11-25] MEDS ORDERED: PROVENTIL 2.5 MG/3 ML NEB IH PRN (15:37)
--- NOTE | 2020-11-25 18:54 | XRAY ---
Indication: Pneumonia. Comparison: May 23, 2020. Portable apical lordotic chest remains clear again with chronic right hemidiaphragm elevation. Heart is not enlarged for AP portable technique. Bony thorax intact with minimal degenerative changes. No new/acute findings. Impression: Continued nonacute chest. Comment: Preliminary interpretation was made by [facility]. No critical discrepancy.
[2020-11-25] MEDS: HUMALOG SQ PRN (20:19)
[2020-11-25] MEDS: Protonix 40MG Tablet PO SCH (23:24)
[2020-11-25] MEDS: Vasotec 10 MG PO SCH (23:29)
[2020-11-26] MEDS: SODIUM CHLORIDE 0.9% IV SCH (03:19)
[2020-11-26] MEDS: solu-CORTEF 100MG IV SCH (03:19)
[2020-11-26] MEDS: ZOVIRAX IV SCH (03:19)
[2020-11-26] MEDS: MSIR 15 MG PO SCH (06:06)
[2020-11-26 07:25] VITALS: BP 119/69; PULSE 74; O2SAT 93
[2020-11-26] MEDS: Glucophage 500 MG PO SCH (07:27)
--- NOTE | 2020-11-26 08:15 | PCM.DS ---
Discharge Summary Date of Admission: 11/20/20 08:35 Admitting Physician: ANN ALEXIS Primary Care Provider: ANN ALEXIS Allergies Allergies pregabalin [From Lyrica] Adverse Reaction (Severe, Verified 11/19/20 22:54) Hives SOB hives azithromycin [From Zmax] Adverse Reaction (Mild, Verified 11/19/20 22:54) vomiting Hospital Summary - Hospital Course Hospital Course: patient admitted with headache, neck pain and stiffness, exacerbation of recurrent aseptic meningitis. 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 felt ready for discharge today - Vitals & Intake/Output Vital Signs: Vital Signs Temperature 98.1 F 11/26/20 07:24 Pulse Rate 74 11/26/20 07:24 Respiratory Rate 16 11/26/20 07:24 Blood Pressure 119/69 11/26/20 07:24 O2 Sat by Pulse Oximetry 93 L 11/26/20 07:24 Intake & Output: Intake & Output 11/23/20 11/24/20 11/25/20 11/26/20 11:59 11:59 11:59 11:59 Intake Total 2362 4188 3001 1586 Output Total 4295 3995 4200 3050 Balance -1933 193 -1199 -1464 Weight 108.2 kg - Lab Result Diagrams: 11/24/20 10:30 11/24/20 10:30 Lab Results-Last 24 Hrs: Lab Results-Last 24 Hours 11/25/20 11/25/20 11/25/20 Range/Units 12:07 16:18 19:49 POC Glucometer 100 233 H 244 H (74 to 106) mg/dL 11/26/20 Range/Units 07:19 POC Glucometer 185 H (74 to 106) mg/dL Micro Results-Entire Visit: Microbiology 11/19/20 21:30 Blood Culture Gram Stain - Final Blood Not Reportable Blood Culture - Final NO GROWTH 11/19/20 21:25 Blood Culture Gram Stain - Final Blood Not Reportable Blood Culture - Final NO GROWTH Accuchecks Date 11/26/20 Date 11/25/20 Date 11/25/20 Date 11/25/20 Date 11/25/20 Time 07:25 Time 22:00 Time 16:19 Time 12:10 Time 12:09 - Radiology Exams Ordered Rad Exams-Entire Visit: Radiology Procedures Category Date Time Status Portable Chest [CHEST 1 VIEW (PORTABLE)] Routine Exams 11/25/20 08:54 Completed - Procedures and Test Procedures and Tests throughout Hospitalization: Therapy Orders & Screens 11/25/20 15:38 Respiratory Therapy Assessment DAILY Comment: Diagnosis: MOLLARET'S SYNDROME, ASEPTIC MENINGITIS Discharge Exam General Appearance: no apparent distress, obese Neurologic Exam: alert, oriented x 3 Neck Exam: supple, No meningismus Respiratory Exam: normal breath sounds, lungs clear, No respiratory distress Cardiovascular Exam: regular rate/rhythm, normal heart sounds Gastrointestinal/Abdomen Exam: soft, No tenderness, No mass Extremity Exam: normal inspection, normal range of motion Skin Exam: normal color, warm, dry Final Diagnosis/Problem List - Final Discharge Diagnosis/Problem (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 Onset Date: ~11/01/18 Code(s): G03.2 - BENIGN RECURRENT MENINGITIS [MOLLARET] (2) Cephalgia Current Visit: Yes Status: Acute Onset Date: ~11/01/18 Code(s): R51 - HEADACHE * DO NOT USE * (3) Diabetes mellitus Current Visit: Yes Status: Chronic Code(s): E11.9 - TYPE 2 DIABETES MELLITUS WITHOUT COMPLICATIONS (4) Opiate dependence Current Visit: No Status: Chronic Code(s): F11.20 - OPIOID DEPENDENCE, UNCOMPLICATED (5) Bronchitis Current Visit: No Status: Acute Code(s): J40 - BRONCHITIS, NOT SPECIFIED ACUTE OR CHRONIC - Discharge Disposition: Home, Self-Care Condition: Stable Prescriptions: New Acyclovir 400 mg PO QID #28 tablet Prednisone 20 mg [Deltasone 20 mg] 20 mg PO UD #18 tablet Levofloxacin [Levofloxacin 500 MG Tablet] 500 mg PO DAILY #5 tablet Continue Enalapril Maleate 10 mg [Vasotec 10 MG] 20 mg PO HS Multivitamin [Multi-Vitamin Daily] 1 each PO DAILY Aspirin 81 mg PO DAILY Mineral Oil 30 ml PO TID Testosterone Cypionate 1.25 ml IM UD Duloxetine HCl [Cymbalta] 60 mg PO BID Prednisone 10 mg [Deltasone 10 mg] 15 mg PO DAILY PANTOPRAZOLE 40 mg Tablet [Protonix 40MG Tablet] 40 mg PO QPM Morphine Sulfate/Pf [Morphine 10 mg/10 ml Vial] 15.6 mg IJ DAILY L.acidoph,Paracasei, B.lactis [Probiotic] 2 each PO DAILY Metformin HCl 500 mg [Glucophage 500 MG] 500 mg PO BIDWM Morphine Sulfate 15 mg PO 06,12,18,00 Instructions: Aseptic Meningitis (DC) Follow up with: ANN ALEXIS MD [Primary Care Provider] - Call for Appointment
== END 2020-11-26 08:50 | disposition home or self-care (01) | DRG 75 ==
LOC: ED 20:06 → MED SURG 22:18 → OBSVTOIN 11-20 08:35
PROVIDERS: ADMIT Family Medicine; ATTEND Family Medicine
DX: G03.2 Benign recurrent meningitis [Mollaret] (principal); F11.20 Opioid dependence, uncomplicated; R51.9 Headache, unspecified; M54.2 Cervicalgia; E11.9 Type 2 diabetes mellitus without complications; J40 Bronchitis, not specified as acute or chronic; Z79.899 Other long term (current) drug therapy
CPT/HCPCS: 36000; 36415; 71045; 80048; 80053; 81001; 82947; 83036; 83605; 85025; 87040; 87400; 87651; 93005; 93041; 94640; 94760; 94762; 96374; 96375; 99285; G0378; J0133; J1170; J1720; J1817; J7609; A9270-GY

== ENCOUNTER 2021-01-24 15:31 | Inpatient (IN) | payer MEDICARE, BC ==
[2021-01-24] MEDS ORDERED: Hydromorphone 1 mg/ml Injection IV ONE ×2 (15:49→18:23)
[2021-01-24] MEDS ORDERED: solu-MEDROL 125 MG IV ONE (15:51)
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
[2021-01-24 16:06] LABS: Absolute Neutrophil Ct (ANC) 5.93 (1.4-6.9); BASOPHIL % 0.5 % (0.0-0.4); Basophil (Absolute #) 0.05 (0-0.4); Eosinophil (Absolute #) 0.51 (0-0.5); Hemoglobin 14.8 gm/dl (12.5-18.0); Lymphocyte (Absolute #) 2.78 (1.0-4.6); Lymphocytes % 27.3 % (24.0-44.0); Mean Cell Volume 92.2 fl (78-100); Mean Corpuscular Hgb Concent. 31.5 g/dl (32-36); Mean Platelet Volume 9.3 fl (7.5-11.0); Monocyte (Absolute #) 0.92 (0.0-1.3); Neutrophil % 58.2 % (36.0-66.0); Platelet Count 380 K/mm3 (150-450); Red Cell Distribution Width 16.6 % (11.5-14.0); White Blood Count 10.2 K/mm3 (4.0-10.5)
[2021-01-24] MEDS ORDERED: Hydromorphone 1 mg/ml Injection ONE ×2 (16:07→18:34)
[2021-01-24] MEDS ORDERED: solu-MEDROL 125 MG ONE (16:07)
[2021-01-24] MEDS: Sodium Chloride 0.9% 1000 ML 1,000 ML IV SCH (16:10)
[2021-01-24 16:17] LABS: ALBUMIN 4.2 g/dL (3.5-5.0); ALKALINE PHOSPHATASE 87 U/L (38-126); ANION GAP 12.6 MEQ/L (5-15); BLOOD UREA NITROGEN 13 mg/dL (9-20); CHLORIDE 100 mmol/L (98-107); Calcium 9.1 mg/dL (8.4-10.2); Carbon Dioxide 29 mmol/L (22-30); Creatinine 1 0.95 mg/dL (0.66-1.25); EST GLOMERULAR FILTRATION RATE > 60.0 ML/MIN; Glucose 187 mg/dL (74-106); SGOT/AST 30 U/L (17-59); SGPT/ALT 27 U/L (0-50); SODIUM 137 mmol/L (137-145); Total Protein 7.1 g/dL (6.3-8.2)
[2021-01-24] MEDS ORDERED: Zovirax INJ*** 500 MG in D5w 100ML Mini Bag 100 ML 100 ML IV ONE (17:04)
[2021-01-24] MEDS ORDERED: ROCEPHIN 1 Gm-D5w 50 ml Bag** 1 G/50 ML IVPB IV STA (17:05)
[2021-01-24] MEDS ORDERED: VANCOMYCIN 1 GRAM/200 ML BAG 1 GM/200 ML PIGGYBACK IV ONE ×2 (17:05→17:29)
[2021-01-24] MEDS ORDERED: Zovirax INJ IV ONE (17:28)
[2021-01-24] MEDS ORDERED: ROCEPHIN 1 Gm-D5w 50 ml Bag** 1 G/50 ML IVPB IV ONE (17:28)
[2021-01-24] MEDS ORDERED: D5w 100ML Mini Bag 100 ML 100 ML IV ONE (17:34)
[2021-01-24 19:13] LABS: INFLUENZA A NEGATIVE (NEGATIVE); INFLUENZA B NEGATIVE (NEGATIVE); RESPIRATORY SYNCTIAL VIRUS NEGATIVE (Negative)
[2021-01-24] MEDS: DILAUDID 1 MG/1ML PCA IV PRN (21:34)
[2021-01-24] MEDS: Cymbalta 30 MG Capsule PO SCH (23:30)
[2021-01-24] MEDS: Vasotec 10 MG PO SCH (23:31)
[2021-01-24] MEDS: Protonix 40MG Tablet PO SCH (23:31)
[2021-01-24] MEDS: MINERAL OIL PO SCH (23:31)
[2021-01-25 05:32] LABS: Absolute Neutrophil Ct (ANC) 8.28 (1.4-6.9); BASOPHIL % 0.1 % (0.0-0.4); Basophil (Absolute #) 0.01 (0-0.4); Eosinophil % 1.1 % (0.00-5.0); Eosinophil (Absolute #) 0.11 (0-0.5); Hematocrit 48.6 % (42-50); Hemoglobin 15.1 gm/dl (12.5-18.0); Lymphocyte (Absolute #) 1.09 (1.0-4.6); Lymphocytes % 11.1 % (24.0-44.0); Mean Cell Volume 93.8 fl (78-100); Mean Corpuscular Hemoglobin 29.2 pg (26-32); Mean Corpuscular Hgb Concent. 31.1 g/dl (32-36); Mean Platelet Volume 10.3 fl (7.5-11.0); Monocyte (Absolute #) 0.29 (0.0-1.3); Neutrophil % 84.7 % (36.0-66.0); Platelet Count 370 K/mm3 (150-450); Red Blood Count 5.18 M/mm3 (4.1-5.6); Red Cell Distribution Width 16.9 % (11.5-14.0); White Blood Count 9.8 K/mm3 (4.0-10.5)
[2021-01-25] MEDS: Sodium Chloride 0.9% 1000 ML 1,000 ML IV SCH ×2 (05:43→17:35)
[2021-01-25 05:49] LABS: ALBUMIN 4.2 g/dL (3.5-5.0); ALKALINE PHOSPHATASE 77 U/L (38-126); ANION GAP 16.2 MEQ/L (5-15); BLOOD UREA NITROGEN 14 mg/dL (9-20); CHLORIDE 98 mmol/L (98-107); Calcium 9.3 mg/dL (8.4-10.2); Carbon Dioxide 24 mmol/L (22-30); Creatinine 1 0.79 mg/dL (0.66-1.25); EST GLOMERULAR FILTRATION RATE > 60.0 ML/MIN; Glucose 255 mg/dL (74-106); Potassium 4.7 mmol/L (3.5-5.1); SGOT/AST 29 U/L (17-59); SGPT/ALT 27 U/L (0-50); SODIUM 133 mmol/L (137-145); Total Protein 7.2 g/dL (6.3-8.2)
--- NOTE | 2021-01-25 09:39 | HP ---
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 Alcantara in [place] beginning in 2002. The patient presents himself to the hospital several times a year for treatment essentially with IV narcotic medications as well as acyclovir and Solu-Medrol which he receives usual cocktail. He was given initial treatment in the emergency room and admitted to the hospital for further evaluation and management. PAST MEDICAL/SURGICAL HISTORY: The patient's medical history is otherwise complicated with depression, gastroesophageal reflux disease. He has had a splenectomy, deviated nasal septum that has been treated. He has peripheral neuropathy, hypertension, diabetes mellitus type II. HOME MEDICATIONS: Currently aspirin 81 mg a day, duloxetine 60 mg b.i.d., enalapril 10 mg tablets two at night. He takes acidophilus tablets b.i.d., mineral oil t.i.d. for constipation. He takes morphine sulfate 15 mg q.i.d. He takes a second dosage of morphine it looks like in a vial via pain pump. He takes pantoprazole 40 mg a day, prednisone 10 mg tablets 15 mg a day, testosterone shot. ALLERGIES: LYRICA. ZITHROMAX. PHYSICAL EXAMINATION: The patient in the emergency room had vital signs temperature 98.7F, pulse 118, respiratory rate 12 and blood pressure 127/79. O2 saturation 97% on room air. HEENT: Normocephalic, atraumatic. Pupils equal round reactive to light. Extraocular movements intact. Oropharynx is pink and moist. NECK: Supple without lymphadenopathy, thyromegaly or JVD. CHEST: Clear to auscultation. HEART: Regular rate and rhythm. ABDOMEN: Soft, nontender, nondistended without hepatosplenomegaly or masses. EXTREMITIES: Without cyanosis, clubbing or edema. NEUROLOGIC: The patient is alert and oriented x3. He is sitting up in bed asking to have a regular diet as opposed to cardiac diet. He appeared to be in no distress whatsoever at this time on IV Dilaudid basically 1 mg/hour. The patient had asked me about his oral narcotics as well which we have held due to the IV medications he has been getting. He is also on telemetry and has an O2 saturation monitor and he has been running about 94% saturation. LAB DATA AND TESTS: The patient's laboratory studies showed him to be negative for COVID-19, RSV and influenza. His white count was 10,200, hemoglobin was 14.8, PLT count 380,000. His sugar initially was 187. Metabolic panel was totally normal otherwise including liver enzymes and renal functions. The patient's sugar was up a bit the next morning at 255 after his IV Solu-Medrol. He had telemetry monitoring showing sinus rhythm. No additional studies were done for his CT scans as the patient had multiple in the past showing no problems. HOSPITAL COURSE: Again, the patient has been admitted for his pain control. At this time he appears to be in no pain on his IV narcotic medications and conversing normally, sitting up in bed asking about having a regular diet. The patient has been restarted on his Solu-Medrol 125 IV every eight hours and acyclovir 5 mg every eight hours as well as his usual cocktail as well as other narcotic medications. 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
[2021-01-25] MEDS ORDERED: NON-FORMULARY ITEM (Multivitamin [Multi-Vitamin Daily] 1 EACH) PO SCH (10:00)
[2021-01-25] MEDS ORDERED: SODIUM CHLORIDE 0.9% IV SCH (10:00)
[2021-01-25] MEDS ORDERED: NON-FORMULARY ITEM (Aspirin [Aspirin] 81 MG) PO SCH (10:00)
[2021-01-25] MEDS ORDERED: ZOVIRAX IV SCH (10:00)
[2021-01-25] MEDS ORDERED: ACIDOPH PARACASEI B LACTIS PO SCH (10:00)
[2021-01-25] MEDS: ECOTRIN 81 MG PO SCH (10:07)
[2021-01-25] MEDS: Cymbalta 30 MG Capsule PO SCH ×2 (10:07→21:32)
[2021-01-25] MEDS: Glucophage 500 MG PO SCH ×2 (10:07→17:12)
[2021-01-25] MEDS: THERAGRAN MULTIVITAMIN PO SCH (10:08)
[2021-01-25] MEDS: Acidophilus TABLET PO SCH (10:08)
[2021-01-25] MEDS: ZOVIRAX IV SCH ×2 (10:09→17:36)
[2021-01-25] MEDS: SODIUM CHLORIDE 0.9% IV SCH ×2 (10:09→17:36)
[2021-01-25] MEDS: MINERAL OIL PO SCH ×3 (10:09→21:33)
[2021-01-25] MEDS: solu-MEDROL 125 MG IV SCH ×2 (11:01→17:34)
[2021-01-25] MEDS: Ms Contin 15 MG PO SCH (17:40)
[2021-01-25] MEDS: Protonix 40MG Tablet PO SCH (21:33)
[2021-01-25] MEDS: Vasotec 10 MG PO SCH (21:33)
[2021-01-26] MEDS: Ms Contin 15 MG PO SCH ×4 (00:03→17:41)
[2021-01-26] MEDS: SODIUM CHLORIDE 0.9% IV SCH ×3 (02:17→17:42)
[2021-01-26] MEDS: solu-MEDROL 125 MG IV SCH ×3 (02:17→17:42)
[2021-01-26] MEDS: ZOVIRAX IV SCH ×3 (02:17→17:42)
[2021-01-26] MEDS: DILAUDID 1 MG/1ML PCA IV PRN (05:21)
[2021-01-26] MEDS: Sodium Chloride 0.9% 1000 ML 1,000 ML IV SCH ×2 (06:04→17:44)
[2021-01-26] MEDS: Glucophage 500 MG PO SCH ×2 (07:50→17:40)
[2021-01-26] MEDS: ECOTRIN 81 MG PO SCH (09:09)
[2021-01-26] MEDS: THERAGRAN MULTIVITAMIN PO SCH (09:09)
[2021-01-26] MEDS: Cymbalta 30 MG Capsule PO SCH ×2 (09:09→21:22)
[2021-01-26] MEDS: MINERAL OIL PO SCH ×3 (09:09→21:22)
[2021-01-26] MEDS: Acidophilus TABLET PO SCH (09:09)
--- NOTE | 2021-01-26 11:48 | PCM.NOTE ---
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 tolerating po. C/o some discomfort in the R ear intermittently for the past 2 weeks - feels like he possibly gets a scab out of it sometimes and when the scab forms it may impact his hearing. - Review of Systems Constitutional: No Fever Abdominal/Gastrointestinal: No Vomiting Neurological: Headache Objective Exam General Appearance: no apparent distress, obese Neurologic Exam: oriented x 3, cooperative Skin Exam: normal color, warm, dry, No rash Ears, Nose, Throat Exam: TMs normal, other (canals wnl bilat. no scabbing/bleeding/excoriation in R ear canal) Neck Exam: normal inspection Respiratory Exam: normal breath sounds, lungs clear, No crackles/rales, No rhonchi, No wheezing Cardiovascular Exam: regular rate/rhythm, normal heart sounds, No murmur Gastrointestinal/Abdomen Exam: soft, No tenderness Extremity Exam: No pedal edema, No swelling OBJECTIVE DATA Vital Signs: Vital Signs - 24 hr Temp Pulse Resp BP Pulse Ox 01/26/21 08:16 95 01/26/21 08:00 98.2 F 100 H 19 138/80 93 L 01/26/21 05:21 91 L 01/26/21 04:00 97.5 F 95 H 19 120/73 91 L 01/26/21 00:00 97.6 F 110 H 14 137/86 94 L 01/25/21 20:00 98.1 F 113 H 22 141/90 93 L 01/25/21 19:18 93 L 01/25/21 16:00 98.5 F 116 H 22 165/65 95 01/25/21 12:05 95 01/25/21 12:00 101 H 20 125/65 99 Oxygen-Last 24 hours Oxygen Flowrate (L/min)-RT 2 Oxygen Flowrate (L/min)-RT 2 Oxygen Flowrate (L/min)-RT 2 Pain Assessment - Last Documented Pain Intensity [Posterior Neck 9 ] Pain Intensity 8 Pain Scale Used 0-10 Pain Scale Intake and Output: Intake & Output 01/23/21 01/24/21 01/25/21 01/26/21 11:59 11:59 11:59 11:59 Intake Total 5851 5921 Output Total 4353 1707 Balance 481 -1122 Weight 112.5 kg 112.5 kg Multi-Disciplinary Progress Notes: Multi-Disciplinary Progress Notes 01/26/21 10:30 Case Management Note by Jacinta Seth INDEPENDENT WITH ALL ADL'S. NO DISCHARGE NEEDS IDENTIFIED AT THIS TIME. WILL FOLLOW. Initialized on 01/26/21 10:30 - END OF NOTE Assessment/Plan (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 Onset Date: ~11/01/18 Assessment & Plan: He is starting to improve. Continue current tx. Code(s): G03.2 - BENIGN RECURRENT MENINGITIS [MOLLARET] (2) Otalgia Current Visit: Yes Status: Acute Qualifiers: Laterality: right Qualified Code(s): H92.01 - Otalgia, right ear Assessment & Plan: Will add ear gtt for possible inflammation. Code(s): H92.09 - OTALGIA, UNSPECIFIED EAR
[2021-01-26] MEDS: CORTISPORIN EAR DROPS Solution 1OML OT SCH ×2 (13:47→21:21)
[2021-01-26] MEDS: Protonix 40MG Tablet PO SCH (21:22)
[2021-01-26] MEDS: Vasotec 10 MG PO SCH (22:00)
[2021-01-27] MEDS: Ms Contin 15 MG PO SCH ×4 (00:02→17:28)
[2021-01-27] MEDS: SODIUM CHLORIDE 0.9% IV SCH ×3 (02:00→17:29)
[2021-01-27] MEDS: ZOVIRAX IV SCH ×3 (02:00→17:29)
[2021-01-27] MEDS: solu-MEDROL 125 MG IV SCH ×3 (02:00→17:28)
[2021-01-27] MEDS: Sodium Chloride 0.9% 1000 ML 1,000 ML IV SCH ×2 (05:50→17:28)
[2021-01-27] MEDS: Glucophage 500 MG PO SCH ×2 (08:01→17:28)
[2021-01-27] MEDS: MINERAL OIL PO SCH ×3 (09:35→21:32)
[2021-01-27] MEDS: CORTISPORIN EAR DROPS Solution 1OML OT SCH ×3 (09:37→21:37)
[2021-01-27] MEDS: ECOTRIN 81 MG PO SCH (09:37)
[2021-01-27] MEDS: Cymbalta 30 MG Capsule PO SCH ×2 (09:37→21:31)
[2021-01-27] MEDS: Acidophilus TABLET PO SCH (09:37)
[2021-01-27] MEDS: THERAGRAN MULTIVITAMIN PO SCH (09:37)
--- NOTE | 2021-01-27 11:15 | PCM.NOTE ---
Date and Time: 01/27/21 1113 Subjective Assessment: Pt is starting to feel a little better. López po. Does not feel ready to go home at this point. - Review of Systems Constitutional: No Fever Neurological: Headache Objective Exam General Appearance: no apparent distress, obese Neurologic Exam: alert, oriented x 3, cooperative Skin Exam: normal color, warm, dry, No rash Eye Exam: eyes nml inspection Ears, Nose, Throat Exam: moist mucous membranes Neck Exam: normal inspection Respiratory Exam: normal breath sounds, lungs clear, No crackles/rales, No rhonchi, No wheezing Cardiovascular Exam: regular rate/rhythm, normal heart sounds, No murmur Gastrointestinal/Abdomen Exam: soft, normal bowel sounds, No tenderness, No mass, No guarding, No rebound Extremity Exam: normal inspection, No pedal edema, No swelling OBJECTIVE DATA Vital Signs: Vital Signs - 24 hr Temp Pulse Resp BP Pulse Ox 01/27/21 07:56 95 01/27/21 07:38 97.6 F 73 18 130/76 91 L 01/27/21 04:00 98.2 F 72 20 137/75 94 L 01/27/21 00:00 97.6 F 85 24 135/83 93 L 01/26/21 20:00 92 L 01/26/21 19:28 95 01/26/21 19:23 97.7 F 113 H 20 108/68 92 L 01/26/21 16:00 98.5 F 110 H 22 131/67 94 L 01/26/21 12:00 98.6 F 89 23 141/85 95 Pain Assessment - Last Documented Pain Intensity [Posterior Neck 9 ] Pain Intensity 7 Pain Scale Used 0-10 Pain Scale Intake and Output: Intake & Output 01/24/21 01/25/21 01/26/21 01/27/21 11:59 11:59 11:59 11:59 Intake Total 2939 4326 4712 Output Total 6741 0320 8060 Balance 481 -1122 262 Weight 112.5 kg 112.5 kg Assessment/Plan (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 Onset Date: ~11/01/18 Assessment & Plan: Improved on IV antivirals and pain meds; may be able to discharge to home in 1-2 days. Code(s): G03.2 - BENIGN RECURRENT MENINGITIS [MOLLARET] (2) Otalgia Current Visit: Yes Status: Acute Qualifiers: Laterality: right Qualified Code(s): H92.01 - Otalgia, right ear Assessment & Plan: Getting ear drops for possible inflammation. Code(s): H92.09 - OTALGIA, UNSPECIFIED EAR
[2021-01-27] MEDS ORDERED: HUMALOG SQ PRN (12:30)
[2021-01-27] MEDS: DILAUDID 1 MG/1ML PCA IV PRN (20:45)
[2021-01-27] MEDS: Protonix 40MG Tablet PO SCH (21:31)
[2021-01-27] MEDS: Vasotec 10 MG PO SCH (21:31)
[2021-01-28] MEDS: ZOVIRAX IV SCH (01:59)
[2021-01-28] MEDS: SODIUM CHLORIDE 0.9% IV SCH (01:59)
[2021-01-28] MEDS: solu-MEDROL 125 MG IV SCH ×2 (01:59→09:45)
[2021-01-28] MEDS: Sodium Chloride 0.9% 1000 ML 1,000 ML IV SCH (04:22)
[2021-01-28 04:58] VITALS: O2SAT 97
[2021-01-28] MEDS: Ms Contin 15 MG PO SCH ×2 (06:01)
[2021-01-28] MEDS: Glucophage 500 MG PO SCH (07:47)
[2021-01-28 08:19] VITALS: BP 121/63; PULSE 63
--- NOTE | 2021-01-28 08:26 | PCM.DS ---
Discharge Summary Date of Admission: 01/25/21 09:12 Admitting Physician: ANN ALEXIS Primary Care Provider: ANN ALEXIS Allergies Allergies pregabalin [From Lyrica] Adverse Reaction (Severe, Verified 01/24/21 15:43) Hives SOB hives azithromycin [From Zmax] Adverse Reaction (Mild, Verified 01/24/21 15:43) vomiting Hospital Summary - Hospital Course Hospital Course: patient was admitted with acute flare of recurrent, benign aseptic meningitis (Mollaret's syndrome). he was treated with usual acyclovir, IV steroids and analgesics. he is improved and requesting to go home today. he is tired from not sleeping well. he is tolerating po intake and pain control is much better now. - Vitals & Intake/Output Vital Signs: Vital Signs Temperature 98.6 F 01/28/21 08:00 Pulse Rate 63 01/28/21 08:00 Respiratory Rate 18 01/28/21 08:00 Blood Pressure 121/63 01/28/21 08:00 O2 Sat by Pulse Oximetry 97 01/28/21 08:00 Intake & Output: Intake & Output 01/25/21 01/26/21 01/27/21 01/28/21 11:59 11:59 11:59 11:59 Intake Total 2931 5990 4712 5229 Output Total 2456 1203 8204 3649 Balance 481 7456 008 3290 Weight 112.5 kg 112.5 kg - Lab Result Diagrams: 01/25/21 04:40 01/25/21 04:40 Lab Results-Last 24 Hrs: Lab Results-Last 24 Hours 01/27/21 01/27/21 01/28/21 Range/Units 16:17 21:13 06:36 POC Glucometer 371 H 322 H 182 H (74 to 106) mg/dL Micro Results-Entire Visit: Accuchecks Date 01/28/21 Date 01/27/21 Time 07:30 Time 16:00 - Procedures and Test Procedures and Tests throughout Hospitalization: Therapy Orders & Screens 01/25/21 07:01 Oxygen Nasal Cannula 2 lpm Comment: Diagnosis: meningitis Discharge Exam General Appearance: no apparent distress, obese Neurologic Exam: alert, oriented x 3, cooperative Neck Exam: normal inspection, non-tender, supple, limited range of motion, No lymphadenopathy Respiratory Exam: normal breath sounds, lungs clear, No respiratory distress Cardiovascular Exam: regular rate/rhythm, normal heart sounds Gastrointestinal/Abdomen Exam: soft, No tenderness, No mass Final Diagnosis/Problem List - Final Discharge Diagnosis/Problem (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 Onset Date: ~11/01/18 Code(s): G03.2 - BENIGN RECURRENT MENINGITIS [MOLLARET] (2) Cephalgia Current Visit: No Status: Acute Onset Date: ~11/01/18 Code(s): R51 - HEADACHE * DO NOT USE * - Discharge Disposition: Home, Self-Care Condition: Stable Prescriptions: New Acyclovir 800 mg PO 5XD #35 tablet Mode/Baci/Poly/Hc Ear Solution* [CORTISPORIN EAR DROPS Solution 1OML] 0.25 ml OT BID #1 bottle Prednisone 20 mg [Deltasone 20 mg] 20 mg PO UD #18 tablet Continue Enalapril Maleate 10 mg [Vasotec 10 MG] 20 mg PO HS Multivitamin [Multi-Vitamin Daily] 1 each PO DAILY Aspirin 81 mg PO DAILY Mineral Oil 30 ml PO TID Testosterone Cypionate 1.25 ml IM UD Duloxetine HCl [Cymbalta] 60 mg PO BID Prednisone 10 mg [Deltasone 10 mg] 15 mg PO DAILY PANTOPRAZOLE 40 mg Tablet [Protonix 40MG Tablet] 40 mg PO QPM Morphine Sulfate/Pf [Morphine 10 mg/10 ml Vial] 15.6 mg IJ DAILY L.acidoph,Paracasei, B.lactis [Probiotic] 2 each PO DAILY Metformin HCl 500 mg [Glucophage 500 MG] 500 mg PO BIDWM Morphine Sulfate 15 mg PO 06,12,18,00 Follow up with: ANN ALEXIS MD [Primary Care Provider] - 1 Week
[2021-01-28] MEDS: DILAUDID 1 MG/1ML PCA IV PRN (08:27)
[2021-01-28] MEDS: Acidophilus TABLET PO SCH (09:39)
[2021-01-28] MEDS: THERAGRAN MULTIVITAMIN PO SCH (09:39)
[2021-01-28] MEDS: ECOTRIN 81 MG PO SCH (09:39)
[2021-01-28] MEDS: Cymbalta 30 MG Capsule PO SCH (09:39)
[2021-01-28] MEDS: CORTISPORIN EAR DROPS Solution 1OML OT SCH (09:40)
[2021-01-28] MEDS: MINERAL OIL PO SCH (09:41)
== END 2021-01-28 09:47 | disposition home or self-care (01) | DRG 76 ==
LOC: ED 15:31 → MED SURG 20:34 → OBSVTOIN 01-25 09:12
PROVIDERS: ADMIT Family Medicine; ATTEND Family Medicine
DX: G03.2 Benign recurrent meningitis [Mollaret] (principal); Z79.899 Other long term (current) drug therapy; E11.9 Type 2 diabetes mellitus without complications; I10 Essential (primary) hypertension; G62.9 Polyneuropathy, unspecified; H92.01 Otalgia, right ear
CPT/HCPCS: 0241U; 36000; 36415; 80053; 82947; 85025; 93268; 94762; 96360; 96365; 96367; 96368; 96374; 96375; 96376; 99285; G0378; J0133; J0696; J1170; J1817; J2930; A9270-GY; J3370

== ENCOUNTER 2021-12-14 11:06 | Emergency (ER) | payer MEDICARE, BC ==
[2021-12-14] MEDS ORDERED: Ms Contin 15 MG PO STA (11:42)
[2021-12-14] MEDS ORDERED: MSIR 15 MG PO ONE (11:45)
--- NOTE | 2021-12-14 12:17 | ERPHSYRPT ---
- History of Present Illness Time Seen by Provider: 12/14/21 11:19 Source: patient Exam Limitations: no limitations Patient Subjective Stated Complaint: pt here for pain to back of neck, he has chronic pain and is out of hes pain medication Triage Nursing Assessment: pt alert, resp easy, skin w/d/p. 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 Patient has not taken any pain medication and is hurting all over especially in the back and neck area. Patient recently moved to [place] and pain management sent his prescriptions to [facility] pharmacy in [place] but patient is actually visiting here. Prescription cannot be transferred internally into [facility]. Denies any numbness tingling focal weakness. No fever chills or shortness of breath reported. Patient tried to call his pain management but did not receive any response sent and is here to get enough supply to go through this weekend. Allergies/Adverse Reactions: pregabalin [From Lyrica] Adverse Reaction (Severe, Verified 12/14/21 11:15) Hives SOB hives azithromycin [From Zmax] Adverse Reaction (Mild, Verified 12/14/21 11:15) vomiting Home Medications: Aspirin 81 mg PO DAILY 01/24/14 [History] Enalapril Maleate 10 mg [Vasotec 10 MG] 20 mg PO HS 01/24/14 [History] Mineral Oil 30 ml PO TID 01/24/14 [History] Multivitamin [Multi-Vitamin Daily] 1 each PO DAILY 01/24/14 [History] Testosterone Cypionate 1.25 ml IM UD 10/09/14 [History] Duloxetine HCl [Cymbalta] 60 mg PO BID 04/23/15 [History] Prednisone 10 mg [Deltasone 10 mg] 15 mg PO DAILY 04/23/15 [History] PANTOPRAZOLE 40 mg Tablet [Protonix 40MG Tablet] 40 mg PO QPM 11/02/18 [History] Morphine Sulfate/Pf [Morphine 10 mg/10 ml Vial] 15.6 mg IJ DAILY 07/29/19 [History] L.acidoph,Paracasei, B.lactis [Probiotic] 2 each PO DAILY 10/23/19 [History] Metformin HCl 500 mg [Glucophage 500 MG] 500 mg PO BIDWM 04/20/20 [History] Morphine Sulfate 15 mg PO 06,12,18,00 04/21/20 [History] Hx Tetanus, Diphtheria Vaccination/Date Given: Yes Hx Influenza Vaccination/Date Given: Yes Hx Pneumococcal Vaccination/Date Given: Yes Immunizations Up to Date: Yes Travel Risk - International Travel Have you traveled outside of the country in past 3 weeks: No - Coronavirus Screening Are you exhibiting any of the following symptoms?: No Close contact with a COVID-19 positive Pt in past 14-21 Days: No - Vaccine Status Have you recieved a Covid-19 vaccination: Yes 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 - Review of Systems Constitutional: No Symptoms Eyes: No Symptoms Ears, Nose, & Throat: No Symptoms Respiratory: No Symptoms Cardiac: No Symptoms Abdominal/Gastrointestinal: No Symptoms Genitourinary Symptoms: No Symptoms Musculoskeletal: Back Pain, Neck Pain Skin: No Symptoms Neurological: No Symptoms Psychological: No Symptoms Endocrine: No Symptoms Hematologic/Lymphatic: No Symptoms - Past Medical History Pertinent Past Medical History: Yes Neurological History: Other ENT History: No Pertinent History Cardiac History: Hypertension Respiratory History: No Pertinent History Endocrine Medical History: No Pertinent History Musculoskeletal History: No Pertinent History GI Medical History: Other History: No Pertinent History Psycho-Social History: No Pertinent History Male Reproductive Disorders: No Pertinent History Other Medical History: Mollaret's, spleen removed - Past Surgical History Past Surgical History: Yes Neuro Surgical History: No Pertinent History Cardiac: No Pertinent History Respiratory: No Pertinent History Gastrointestinal: Other Genitourinary: No Pertinent History Musculoskeletal: No Pertinent History Male Surgical History: Vasectomy Other Surgical History: spleen removed, apendectomy, 2 nasal surgeries - Social History Smoking Status: Never smoker Exposure to second hand smoke: No Alcohol Use: None Drug Use: none Patient Lives Alone: Yes Significant Family History: no pertinent family hx - Nursing Vital Signs Nursing Vital Signs: Initial Vital Signs Temperature 97.3 F 12/14/21 11:22 Pulse Rate 58 L 12/14/21 11:22 Respiratory Rate 18 12/14/21 11:22 Blood Pressure 121/104 12/14/21 11:22 O2 Sat by Pulse Oximetry 97 12/14/21 11:22 Pain Scale Pain Intensity 10 - Physical Exam General Appearance: no apparent distress, alert Eye Exam: PERRL/EOMI, eyes nml inspection Ears, Nose, Throat Exam: normal ENT inspection, TMs normal, pharynx normal Neck Exam: normal inspection, supple, full range of motion, other (Muscle stiffness) Respiratory Exam: normal breath sounds, lungs clear Cardiovascular Exam: regular rate/rhythm, normal heart sounds Back Exam: normal inspection, normal range of motion Extremity Exam: normal inspection, normal range of motion Neurologic Exam: alert, oriented x 3, 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, 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 Skin Exam: normal color SpO2 Interpretation: normal SpO2: 97 O2 Delivery: Room Air Ordered Tests: Medication Summary Discontinued Medications Generic Name Dose Route Start Last Admin Trade Name Freq PRN Reason Stop Dose Admin Morphine Sulfate 15 mg 12/14/21 11:45 12/14/21 11:49 Morphine Sulfate 15 Mg Tablet Immediate Release PO 12/14/21 11:46 15 mg ONCE ONE Administration - Progress Progress: improved Progress Note: 12/14/21 12:15 Is given 1 dose in here, I have called [facility] pharmacy here locally and confirmed that prescriptions cannot be transferred internally. Patient would be given 2 days worth of morphine and he will follow up with his primary pain management to get another prescription on Thursday. Does not have any signs symptoms suggesting meningitis and do not think needs any work-up and stable for discharge. Counseled pt/family regarding: diagnosis, need for follow-up - Departure Departure Disposition: Home Clinical Impression: Chronic pain syndrome Condition: Stable Critical Care Time: No Referrals: ANN ALEXIS MD [Primary Care Provider] - Follow up/PCP as directed (In 2 days) Instructions: Cervical Muscle Strain (DC) Additional Instructions: Follow-up with your pain management Thursday for reevaluation and new prescription. Take medications as recommended. Return to ER for intractable neck pain/headache, numbness tingling focal weakness, fever chills etc. Prescriptions: Morphine Sulfate Ir 15 mg [Msir 15 mg] 15 mg PO Q6H PRN PRN 2 Days #8 tablet MDD 60 PRN Reason: Pain
[2021-12-14 12:36] VITALS: BP 107/70; PULSE 78; O2SAT 98
== END 2021-12-14 12:36 | disposition home or self-care (01) ==
LOC: ED 11:06
DX: G89.4 Chronic pain syndrome (principal); Z79.891 Long term (current) use of opiate analgesic; Z79.899 Other long term (current) drug therapy; I10 Essential (primary) hypertension
CPT/HCPCS: 99283; A9270-GY

== ENCOUNTER 2022-01-06 13:57 | Inpatient (IN) | payer MEDICARE, BC ==
[2022-01-06 14:26] LABS: Absolute Neutrophil Ct (ANC) 5.98 (1.4-6.9); Basophil (Absolute #) 0.05 (0-0.4); Eosinophil % 6.3 % (0.00-5.0); Eosinophil (Absolute #) 0.73 (0-0.5); Lymphocyte (Absolute #) 3.38 (1.0-4.6); Lymphocytes % 29.4 % (24.0-44.0); Mean Cell Volume 91.3 fl (78-100); Mean Corpuscular Hemoglobin 29.1 pg (26-32); Mean Corpuscular Hgb Concent. 31.9 g/dl (32-36); Mean Platelet Volume 10.1 fl (7.5-11.0); Monocyte (Absolute #) 1.37 (0.0-1.3); Monocytes % 11.9 % (0.0-12.0); Platelet Count 389 K/mm3 (150-450); Red Blood Count 5.15 M/mm3 (4.1-5.6); White Blood Count 11.5 K/mm3 (4.0-10.5)
[2022-01-06] MEDS ORDERED: Zofran 4 MG/2 ML VIAL IV ONE (14:43)
[2022-01-06] MEDS ORDERED: Hydromorphone 1 mg/ml Injection IV ONE ×2 (14:43→15:44)
[2022-01-06 14:44] LABS: ALKALINE PHOSPHATASE 97 U/L (38-126); ANION GAP 14.1 MEQ/L (5-15); BLOOD UREA NITROGEN 10 mg/dL (9-20); CHLORIDE 103 mmol/L (98-107); Calcium 9.5 mg/dL (8.4-10.2); Carbon Dioxide 25 mmol/L (22-30); Creatinine 1 1.02 mg/dL (0.66-1.25); EST GLOMERULAR FILTRATION RATE > 60.0 ML/MIN; Glucose 171 mg/dL (74-106); Potassium 4.4 mmol/L (3.5-5.1); SGOT/AST 28 U/L (17-59); SGPT/ALT 27 U/L (0-50); SODIUM 138 mmol/L (137-145); Total Protein 6.6 g/dL (6.3-8.2)
[2022-01-06] MEDS ORDERED: Zofran 4 MG/2 ML VIAL ONE (14:44)
[2022-01-06] MEDS ORDERED: Hydromorphone 1 mg/ml Injection ONE ×2 (14:44→15:38)
--- NOTE | 2022-01-06 14:49 | ERPHSYRPT ---
- History of Present Illness Source: patient Exam Limitations: no limitations Patient Subjective Stated Complaint: Neck and lower back pain Triage Nursing Assessment: Patient ambulated back to ED and transferred self to bed. Patient A+O X 3. Patient's skin pink, warm and dry. Patient complains of neck and lower back pain that started last night. Patient complains of constant stabbing pain 07/12. Patient states he had Mollarett Menigitis in 1991 and has flare up with this. Patient denies recent injury or trauma. 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 Pt also suffers from chronic pain and has a morphine pain pump. He has a mild PARK wo nuchal rigidity and denies fever/N/V/D/dysuria/cough. Timing/Duration: yesterday Severity: moderate Modifying Factors: Worsens With: cold therapy, eating, immobilization, medication, movement, rest, acetaminophen, ibuprofen Associated Symptoms: headaches, No nausea, No vomiting, No abdominal pain, No shortness of breath, No heartburn, No diaphoresis, No cough, No chills, No chest pain, No fever, No loss of appetite, No malaise, No rash, No syncope, No seizure, No weakness Allergies/Adverse Reactions: pregabalin [From Lyrica] Adverse Reaction (Severe, Verified 01/06/22 14:04) Hives SOB hives azithromycin [From Zmax] Adverse Reaction (Mild, Verified 01/06/22 14:04) vomiting Home Medications: Aspirin 81 mg PO DAILY 01/24/14 [History] Enalapril Maleate 10 mg [Vasotec 10 MG] 20 mg PO HS 01/24/14 [History] Mineral Oil 30 ml PO TID 01/24/14 [History] Multivitamin [Multi-Vitamin Daily] 1 each PO DAILY 01/24/14 [History] Testosterone Cypionate 1.25 ml IM UD 10/09/14 [History] Duloxetine HCl [Cymbalta] 60 mg PO BID 04/23/15 [History] Prednisone 10 mg [Deltasone 10 mg] 15 mg PO DAILY 04/23/15 [History] PANTOPRAZOLE 40 mg Tablet [Protonix 40MG Tablet] 40 mg PO QPM 11/02/18 [History] Morphine Sulfate/Pf [Morphine 10 mg/10 ml Vial] 15.6 mg IJ DAILY 07/29/19 [History] L.acidoph,Paracasei, B.lactis [Probiotic] 2 each PO DAILY 10/23/19 [History] Metformin HCl 500 mg [Glucophage 500 MG] 1,000 mg PO BIDWM 04/20/20 [History] Atorvastatin Calcium [Lipitor] 1 tab PO HS 01/06/22 [History] Hx Tetanus, Diphtheria Vaccination/Date Given: Yes Hx Influenza Vaccination/Date Given: No Hx Pneumococcal Vaccination/Date Given: Yes Immunizations Up to Date: Yes Travel Risk - International Travel Have you traveled outside of the country in past 3 weeks: No - Coronavirus Screening Are you exhibiting any of the following symptoms?: No Close contact with a COVID-19 positive Pt in past 14-21 Days: No - Vaccine Status Have you recieved a Covid-19 vaccination: Yes 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 - Review of Systems Constitutional: No Symptoms Eyes: No Symptoms Ears, Nose, & Throat: No Symptoms Respiratory: No Symptoms Cardiac: No Symptoms Abdominal/Gastrointestinal: No Symptoms Genitourinary Symptoms: No Symptoms Musculoskeletal: No Symptoms Skin: No Symptoms Neurological: No Symptoms, Headache Psychological: No Symptoms Endocrine: No Symptoms Hematologic/Lymphatic: No Symptoms Immunological/Allergic: No Symptoms - Past Medical History Pertinent Past Medical History: Yes Neurological History: Other ENT History: No Pertinent History Cardiac History: Hypertension Respiratory History: No Pertinent History Endocrine Medical History: No Pertinent History Musculoskeletal History: No Pertinent History GI Medical History: Other History: No Pertinent History Psycho-Social History: No Pertinent History Male Reproductive Disorders: No Pertinent History Other Medical History: Mollaret's, spleen removed - Past Surgical History Past Surgical History: Yes Neuro Surgical History: No Pertinent History Cardiac: No Pertinent History Respiratory: No Pertinent History Gastrointestinal: Other Genitourinary: No Pertinent History Musculoskeletal: No Pertinent History Male Surgical History: Vasectomy Other Surgical History: spleen removed, apendectomy, 2 nasal surgeries - Social History Smoking Status: Never smoker Exposure to second hand smoke: No Alcohol Use: None Drug Use: none Patient Lives Alone: Yes Significant Family History: no pertinent family hx - Nursing Vital Signs Nursing Vital Signs: Initial Vital Signs Temperature 96.4 F 01/06/22 14:04 Pain Scale Pain Intensity 9 - Physical Exam General Appearance: no apparent distress Eye Exam: PERRL/EOMI, eyes nml inspection Ears, Nose, Throat Exam: normal ENT inspection, TMs normal, pharynx normal, moist mucous membranes Neck Exam: normal inspection, non-tender, supple, full range of motion, No meningismus, No mass, No Brudzinski, No Kernig's, No carotid bruit Respiratory Exam: normal breath sounds, lungs clear, airway intact Cardiovascular Exam: regular rate/rhythm, normal heart sounds, normal peripheral pulses, capillary refill <2 sec, No murmur Gastrointestinal/Abdomen Exam: soft, normal bowel sounds, No tenderness Rectal Exam: deferred Back Exam: normal inspection, normal range of motion, No CVA tenderness, No vertebral tenderness Extremity Exam: normal inspection, normal range of motion Neurologic Exam: alert, oriented x 3, 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, 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, nor mal mood/affect, nml cerebellar function, nml station & gait, sensation nml, motor deficits, No sensory deficit Skin Exam: normal color, warm, dry, No rash Lymphatic Exam: No adenopathy - Course Nursing assessment & vital signs reviewed: Yes Ordered Tests: Active Orders 24 hr Category Date Time Status Heart-Healthy Diet Diet 01/06/22 Dinner Active CBC W DIFF AM.LAB Lab 01/07/22 04:00 Ordered CBC W DIFF Stat Lab 01/06/22 14:15 Completed CMP AM.LAB Lab 01/07/22 04:00 Ordered CMP Stat Lab 01/06/22 14:15 Completed Lactic Acid Stat Lab 01/06/22 14:15 Completed Transfer Order Routine Transfer 01/06/22 Completed Medication Summary Generic Name Dose Route Start Last Admin Trade Name Freq PRN Reason Stop Dose Admin Hydrocortisone Sodium Succinate 100 mg 01/06/22 19:00 Hydrocortisone Sod Succinate 100 Mg/Vial Vial IV 02/05/22 18:59 Q8HT GLENNA Hydromorphone HCl 30 mg 01/06/22 15:33 01/06/22 17:38 Hydromorphone Hcl 30 Mg/30 Ml Credit Verification Clerk Vial IV 01/11/22 15:32 30 ml UD PRN Administration PAIN Sodium Chloride 1,000 mls @ 100 mls/hr 01/06/22 15:45 01/06/22 17:36 Sodium Chloride 0.9% 1000 Ml IV 02/05/22 15:44 100 mls/hr .Q10H GLENNA Administration Acyclovir Sodium 500 mg/ 100 mls @ 100 mls/hr 01/06/22 18:00 Sodium Chloride IV 02/05/22 17:59 Q8H GLENNA Ondansetron HCl 4 mg 01/06/22 15:33 Ondansetron Hcl 4 Mg/2 Ml Vial IV 02/05/22 15:32 Q6H PRN PRN NAUSEA/VOMITING Pantoprazole Sodium 40 mg 01/07/22 18:00 Pantoprazole 40 Mg Vial IV 02/06/22 17:59 Q24H10 GLENNA Discontinued Medications Generic Name Dose Route Start Last Admin Trade Name Freq PRN Reason Stop Dose Admin Hydromorphone HCl 1 mg 01/06/22 14:43 01/06/22 14:46 Hydromorphone 1 Mg/1ml Inj 1 Mg/Ml Syringe IV 01/06/22 14:44 1 mg STAT ONE Administration Hydromorphone HCl Confirm 01/06/22 14:44 Hydromorphone 1 Mg/1ml Inj 1 Mg/Ml Syringe Administered 01/06/22 14:45 Dose 1 mg .ROUTE .STK-MED ONE Hydromorphone HCl Confirm 01/06/22 15:38 Hydromorphone 1 Mg/1ml Inj 1 Mg/Ml Syringe Administered 01/06/22 15:39 Dose 1 mg .ROUTE .STK-MED ONE Hydromorphone HCl 1 mg 01/06/22 15:44 01/06/22 15:46 Hydromorphone 1 Mg/1ml Inj 1 Mg/Ml Syringe IV 01/06/22 15:45 1 mg STAT ONE Administration Ondansetron HCl 4 mg 01/06/22 14:43 01/06/22 14:45 Ondansetron Hcl 4 Mg/2 Ml Vial IV 01/06/22 14:44 4 mg STAT ONE Administration Ondansetron HCl Confirm 01/06/22 14:44 Ondansetron Hcl 4 Mg/2 Ml Vial Administered 01/06/22 14:45 Dose 4 mg .ROUTE .STK-MED ONE Lab/Rad Data: Laboratory Result Diagrams 01/06/22 14:15 01/06/22 14:15 Laboratory Results 01/06/22 01/06/22 01/06/22 Range/Units 15:38 14:15 14:15 WBC (4.0-10.5) K/mm3 RBC (4.1-5.6) M/mm3 Hgb (12.5-18.0) gm/dl Hct (42-50) % MCV (78-100) fl MCH (26-32) pg MCHC (32-36) g/dl RDW (11.5-14.0) % Plt Count (150-450) K/mm3 MPV (7.5-11.0) fl Gran % (36.0-66.0) % Eos # (Auto) (0-0.5) Absolute Lymphs (auto) (1.0-4.6) Absolute Monos (auto) (0.0-1.3) Lymphocytes % (24.0-44.0) % Monocytes % (0.0-12.0) % Eosinophils % (0.00-5.0) % Basophils % (0.0-0.4) % Absolute Granulocytes (1.4-6.9) Basophils # (0-0.4) Sodium 138 (137-145) mmol/L Potassium 4.4 (3.5-5.1) mmol/L Chloride 103 (98-107) mmol/L Carbon Dioxide 25 (22-30) mmol/L Anion Gap 14.1 (5-15) MEQ/L BUN 10 (9-20) mg/dL Creatinine 1.02 (0.66-1.25) mg/dL Estimated GFR > 60.0 ML/MIN Glucose 171 H (74-106) mg/dL Lactic Acid 2.0 (0.4-2.0) Calcium 9.5 (8.4-10.2) mg/dL Total Bilirubin 0.30 (0.2-1.3) mg/dL AST 28 (17-59) U/L ALT 27 (0-50) U/L Alkaline Phosphatase 97 (38-126) U/L Serum Total Protein 6.6 (6.3-8.2) g/dL Albumin 4.0 (3.5-5.0) g/dL Influenza Type A Ag NEGATIVE (NEGATIVE) Influenza Type B Ag NEGATIVE (NEGATIVE) RSV (PCR) NEGATIVE (Negative) SARS-CoV-2 (PCR) NEGATIVE (NEGATIVE) 01/06/22 Range/Units 14:15 WBC 11.5 H (4.0-10.5) K/mm3 RBC 5.15 (4.1-5.6) M/mm3 Hgb 15.0 (12.5-18.0) gm/dl Hct 47.0 (42-50) % MCV 91.3 (78-100) fl MCH 29.1 (26-32) pg MCHC 31.9 L (32-36) g/dl RDW 15.0 H (11.5-14.0) % Plt Count 389 (150-450) K/mm3 MPV 10.1 (7.5-11.0) fl Gran % 52.0 (36.0-66.0) % Eos # (Auto) 0.73 H (0-0.5) Absolute Lymphs (auto) 3.38 (1.0-4.6) Absolute Monos (auto) 1.37 H (0.0-1.3) Lymphocytes % 29.4 (24.0-44.0) % Monocytes % 11.9 (0.0-12.0) % Eosinophils % 6.3 H (0.00-5.0) % Basophils % 0.4 (0.0-0.4) % Absolute Granulocytes 5.98 (1.4-6.9) Basophils # 0.05 (0-0.4) Sodium (137-145) mmol/L Potassium (3.5-5.1) mmol/L Chloride (98-107) mmol/L Carbon Dioxide (22-30) mmol/L Anion Gap (5-15) MEQ/L BUN (9-20) mg/dL Creatinine (0.66-1.25) mg/dL Estimated GFR ML/MIN Glucose (74-106) mg/dL Lactic Acid (0.4-2.0) Calcium (8.4-10.2) mg/dL Total Bilirubin (0.2-1.3) mg/dL AST (17-59) U/L ALT (0-50) U/L Alkaline Phosphatase (38-126) U/L Serum Total Protein (6.3-8.2) g/dL Albumin (3.5-5.0) g/dL Influenza Type A Ag (NEGATIVE) Influenza Type B Ag (NEGATIVE) RSV (PCR) (Negative) SARS-CoV-2 (PCR) (NEGATIVE) - Progress Progress: improved Progress Note: 01/06/22 15:32 1mg IV Dilaudid/4mg IV Zofran Admit per Dr. Pardo 01/06/22 15:45 1mg IV Dilaudid Discussed with Dr.: Dodson Counseled pt/family regarding: lab results, diagnosis, need for follow-up - Departure Departure Disposition: Observation Clinical Impression: Mollaret's syndrome Condition: Stable Critical Care Time: No
[2022-01-06] MEDS ORDERED: Zofran 4 MG/2 ML VIAL IV PRN (15:33)
[2022-01-06 16:19] LABS: INFLUENZA A NEGATIVE (NEGATIVE); INFLUENZA B NEGATIVE (NEGATIVE); RESPIRATORY SYNCTIAL VIRUS NEGATIVE (Negative); SARS-CoV-2 Xpert Express NEGATIVE (NEGATIVE)
[2022-01-06] MEDS: Sodium Chloride 0.9% 1000 ML 1,000 ML IV SCH (17:36)
[2022-01-06] MEDS: DILAUDID 1 MG/1ML PCA IV PRN (17:38)
[2022-01-06] MEDS: solu-CORTEF 100MG IV SCH (18:09)
[2022-01-06] MEDS: ZOVIRAX IV SCH (18:09)
[2022-01-06] MEDS: SODIUM CHLORIDE 0.9% IV SCH (18:09)
[2022-01-06] MEDS: Cymbalta 30 MG Capsule PO SCH (21:06)
[2022-01-06] MEDS: Zocor 10MG PO SCH (21:06)
[2022-01-06] MEDS: Vasotec 10 MG PO SCH (21:06)
[2022-01-06] MEDS ORDERED: PROTONIX 40 MG IV IV ONE (21:12)
[2022-01-06] MEDS: MINERAL OIL PO SCH (22:38)
[2022-01-07] MEDS: SODIUM CHLORIDE 0.9% IV SCH ×3 (02:51→18:07)
[2022-01-07] MEDS: ZOVIRAX IV SCH ×3 (02:51→18:07)
[2022-01-07] MEDS: Sodium Chloride 0.9% 1000 ML 1,000 ML IV SCH ×2 (02:52→15:06)
[2022-01-07 04:48] LABS: Absolute Neutrophil Ct (ANC) 6.62 (1.4-6.9); Basophil (Absolute #) 0.03 (0-0.4); Eosinophil % 2.1 % (0.00-5.0); Eosinophil (Absolute #) 0.25 (0-0.5); Hematocrit 45.7 % (42-50); Hemoglobin 14.3 gm/dl (12.5-18.0); Lymphocyte (Absolute #) 3.76 (1.0-4.6); Lymphocytes % 31.9 % (24.0-44.0); Mean Cell Volume 92.9 fl (78-100); Mean Corpuscular Hemoglobin 29.1 pg (26-32); Mean Corpuscular Hgb Concent. 31.3 g/dl (32-36); Mean Platelet Volume 10.2 fl (7.5-11.0); Monocyte (Absolute #) 1.11 (0.0-1.3); Monocytes % 9.4 % (0.0-12.0); Neutrophil % 56.3 % (36.0-66.0); Platelet Count 380 K/mm3 (150-450); Red Blood Count 4.92 M/mm3 (4.1-5.6); White Blood Count 11.8 K/mm3 (4.0-10.5)
[2022-01-07] MEDS: solu-CORTEF 100MG IV SCH ×3 (05:05→21:30)
[2022-01-07 05:12] LABS: ALBUMIN 3.8 g/dL (3.5-5.0); ALKALINE PHOSPHATASE 71 U/L (38-126); ANION GAP 8.6 MEQ/L (5-15); BLOOD UREA NITROGEN 11 mg/dL (9-20); CHLORIDE 101 mmol/L (98-107); Calcium 8.4 mg/dL (8.4-10.2); Carbon Dioxide 31 mmol/L (22-30); EST GLOMERULAR FILTRATION RATE > 60.0 ML/MIN; Glucose 91 mg/dL (74-106); Potassium 4.4 mmol/L (3.5-5.1); SGOT/AST 26 U/L (17-59); SGPT/ALT 25 U/L (0-50); SODIUM 137 mmol/L (137-145); Total Protein 6.5 g/dL (6.3-8.2)
--- NOTE | 2022-01-07 08:39 | PCM.HP ---
History of Present Illness - Chief Complaint Chief Complaint: Menengitis flare up History of Present Illness: is a 52 year old male with PMHx Mollarett meningitis (recurrent) who started having increased cervical pain radiating to lumbar spine the night before last. He came to ER last night and was admitted on IV antivirals and dilaudid. His labs were grossly nl (mild elevated WBC with no left shift). His symptoms are typical for his exacerbations. He had some nausea and decreased appetite, but no vomiting. Pain medicine helping a little, this morning pain is 8/10 and he is able to eat breakfast. - Review of Systems Abdominal/Gastrointestinal: Nausea, Appetite Changes Musculoskeletal: Back Pain, Neck Pain Neurological: Headache All Other Systems: Reviewed and Negative Medications & Allergies Home Medications: Home Medication List Aspirin 81 mg PO DAILY 01/24/14 [History Confirmed 01/06/22] Enalapril Maleate 10 mg [Vasotec 10 MG] 20 mg PO HS 01/24/14 [History Confirmed 01/06/22] Mineral Oil 30 ml PO TID 01/24/14 [History Confirmed 01/06/22] Multivitamin [Multi-Vitamin Daily] 1 each PO DAILY 01/24/14 [History Confirmed 01/06/22] Testosterone Cypionate 1.25 ml IM UD 10/09/14 [History Confirmed 01/06/22] Duloxetine HCl [Cymbalta] 60 mg PO BID 04/23/15 [History Confirmed 01/06/22] Prednisone 10 mg [Deltasone 10 mg] 15 mg PO DAILY 04/23/15 [History Confirmed 01/06/22] PANTOPRAZOLE 40 mg Tablet [Protonix 40MG Tablet] 40 mg PO QPM 11/02/18 [History Confirmed 01/06/22] Morphine Sulfate/Pf [Morphine 10 mg/10 ml Vial] 15.6 mg IJ DAILY 07/29/19 [History Confirmed 01/06/22] L.acidoph,Paracasei, B.lactis [Probiotic] 2 each PO DAILY 10/23/19 [History Confirmed 01/06/22] Metformin HCl 500 mg [Glucophage 500 MG] 1,000 mg PO BIDWM 04/20/20 [History Confirmed 01/06/22] Morphine Sulfate Ir 15 mg [Msir 15 mg] 15 mg PO Q6H PRN PRN 2 Days #8 tablet MDD 60 12/14/21 [Rx Confirmed 01/06/22] Atorvastatin Calcium [Lipitor] 10 mg PO HS 01/06/22 [History Confirmed 01/06/22] Allergies/Adverse Reactions: Allergies Allergy/AdvReac Type Severity Reaction Status Date / Time pregabalin [From Lyrica] AdvReac Severe Hives Verified 01/06/22 14:04 azithromycin [From Zmax] AdvReac Mild Verified 01/06/22 14:04 - Past Medical History Past Medical History: Yes Neurological History: Other ENT History: No Pertinent History Cardiac History: Hypertension Respiratory History: No Pertinent History Endocrine Medical History: No Pertinent History Musculoskelatal History: No Pertinent History GI Medical History: Other History: No Pertinent History Pyscho-Social History: No Pertinent History Male Reproductive Disorders: No Pertinent History Comment: Mollaret's, spleen removed - Past Surgical History Past Surgical History: Yes Neuro Surgical History: No Pertinent History Cardiac History: No Pertinent History Respiratory Surgery: No Pertinent History GI Surgical History: Other Genitourinary Surgical Hx: No Pertinent History Musculskeletal Surgical Hx: No Pertinent History Male Surgical History: Vasectomy Other Surgical History: spleen removed, apendectomy, 2 nasal surgeries - Social History Smoking Status: Never smoker Exposure to second hand smoke: No Alcohol: Rarely, Occasionally Drug Use: none Significant Family History: no pertinent family hx - Physical Exam Vital Signs: Vital Signs - 24 hr Temp Pulse Resp BP Pulse Ox 01/07/22 07:18 98.1 F 101 H 16 112/77 94 L 01/07/22 04:00 96.8 F 93 H 16 111/74 96 01/07/22 00:15 96.9 F 90 16 127/77 97 01/07/22 00:07 97.8 F 105 H 16 153/75 96 01/06/22 19:30 97.5 F 105 H 16 153/75 96 01/06/22 17:16 97.9 F 88 16 130/92 97 01/06/22 17:15 97.9 F 88 18 130/92 94 L 01/06/22 17:10 97.9 F 88 16 130/92 97 01/06/22 15:31 88 18 128/76 94 L 01/06/22 14:04 96.4 F General Appearance: no apparent distress, alert, obese Neurologic Exam: oriented x 3, cooperative, 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 tested, other (care team assistant 5/5 bilat) Eye Exam: eyes nml inspection Ears, Nose, Throat Exam: moist mucous membranes Neck Exam: normal inspection, non-tender, No lymphadenopathy, No thyromegaly Respiratory Exam: normal breath sounds, lungs clear, No crackles/rales, No rhonchi, No wheezing Cardiovascular Exam: regular rate/rhythm, normal heart sounds, No murmur Gastrointestinal/Abdomen Exam: soft, normal bowel sounds, No tenderness, No mass, No guarding, No rebound Back Exam: No CVA tenderness Extremity Exam: normal inspection, No pedal edema, No swelling Skin Exam: normal color, warm, dry, No rash Results - Labs Lab/Micro Results: Lab Results-Last 24 Hours 01/06/22 01/06/22 01/06/22 Range/Units 14:15 14:15 14:15 WBC 11.5 H (4.0-10.5) K/mm3 RBC 5.15 (4.1-5.6) M/mm3 Hgb 15.0 (12.5-18.0) gm/dl Hct 47.0 (42-50) % MCV 91.3 (78-100) fl MCH 29.1 (26-32) pg MCHC 31.9 L (32-36) g/dl RDW 15.0 H (11.5-14.0) % Plt Count 389 (150-450) K/mm3 MPV 10.1 (7.5-11.0) fl Gran % 52.0 (36.0-66.0) % Eos # (Auto) 0.73 H (0-0.5) Absolute Lymphs (auto) 3.38 (1.0-4.6) Absolute Monos (auto) 1.37 H (0.0-1.3) Lymphocytes % 29.4 (24.0-44.0) % Monocytes % 11.9 (0.0-12.0) % Eosinophils % 6.3 H (0.00-5.0) % Basophils % 0.4 (0.0-0.4) % Absolute Granulocytes 5.98 (1.4-6.9) Basophils # 0.05 (0-0.4) Sodium 138 (137-145) mmol/L Potassium 4.4 (3.5-5.1) mmol/L Chloride 103 (98-107) mmol/L Carbon Dioxide 25 (22-30) mmol/L Anion Gap 14.1 (5-15) MEQ/L BUN 10 (9-20) mg/dL Creatinine 1.02 (0.66-1.25) mg/dL Estimated GFR > 60.0 ML/MIN Glucose 171 H (74-106) mg/dL Lactic Acid 2.0 (0.4-2.0) Calcium 9.5 (8.4-10.2) mg/dL Total Bilirubin 0.30 (0.2-1.3) mg/dL AST 28 (17-59) U/L ALT 27 (0-50) U/L Alkaline Phosphatase 97 (38-126) U/L Serum Total Protein 6.6 (6.3-8.2) g/dL Albumin 4.0 (3.5-5.0) g/dL Influenza Type A Ag (NEGATIVE) Influenza Type B Ag (NEGATIVE) RSV (PCR) (Negative) SARS-CoV-2 (PCR) (NEGATIVE) 01/06/22 01/07/22 01/07/22 Range/Units 15:38 04:15 04:15 WBC 11.8 H (4.0-10.5) K/mm3 RBC 4.92 (4.1-5.6) M/mm3 Hgb 14.3 (12.5-18.0) gm/dl Hct 45.7 (42-50) % MCV 92.9 (78-100) fl MCH 29.1 (26-32) pg MCHC 31.3 L (32-36) g/dl RDW 15.0 H (11.5-14.0) % Plt Count 380 (150-450) K/mm3 MPV 10.2 (7.5-11.0) fl Gran % 56.3 (36.0-66.0) % Eos # (Auto) 0.25 (0-0.5) Absolute Lymphs (auto) 3.76 (1.0-4.6) Absolute Monos (auto) 1.11 (0.0-1.3) Lymphocytes % 31.9 (24.0-44.0) % Monocytes % 9.4 (0.0-12.0) % Eosinophils % 2.1 (0.00-5.0) % Basophils % 0.3 (0.0-0.4) % Absolute Granulocytes 6.62 (1.4-6.9) Basophils # 0.03 (0-0.4) Sodium 137 (137-145) mmol/L Potassium 4.4 (3.5-5.1) mmol/L Chloride 101 (98-107) mmol/L Carbon Dioxide 31 H (22-30) mmol/L Anion Gap 8.6 (5-15) MEQ/L BUN 11 (9-20) mg/dL Creatinine 0.80 (0.66-1.25) mg/dL Estimated GFR > 60.0 ML/MIN Glucose 91 (74-106) mg/dL Lactic Acid (0.4-2.0) Calcium 8.4 (8.4-10.2) mg/dL Total Bilirubin 0.40 (0.2-1.3) mg/dL AST 26 (17-59) U/L ALT 25 (0-50) U/L Alkaline Phosphatase 71 (38-126) U/L Serum Total Protein 6.5 (6.3-8.2) g/dL Albumin 3.8 (3.5-5.0) g/dL Influenza Type A Ag NEGATIVE (NEGATIVE) Influenza Type B Ag NEGATIVE (NEGATIVE) RSV (PCR) NEGATIVE (Negative) SARS-CoV-2 (PCR) NEGATIVE (NEGATIVE) Assessment/Plan (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 Generally takes a few days for this exacerbation to resolve. Also on IV acyclovir. 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 insulin use: without longterm use Diabetes mellitus complication status: with neurologic complications Diabetes mellitus complication detail: with polyneuropathy Qualified Code(s): E11.42 - Type 2 diabetes mellitus with diabetic polyneuropathy Code(s): E11.9 - TYPE 2 DIABETES MELLITUS WITHOUT COMPLICATIONS (3) Hypertension Current Visit: No Status: Chronic Onset Date: ~11/01/18 Qualifiers: Hypertension type: essential hypertension Qualified Code(s): I10 - Essential (primary) hypertension Code(s): I10 - ESSENTIAL (PRIMARY) HYPERTENSION (4) Opiate dependence Current Visit: No Status: Chronic Qualifiers: Substance use status: uncomplicated Qualified Code(s): F11.20 - Opioid dependence, uncomplicated Code(s): F11.20 - OPIOID DEPENDENCE, UNCOMPLICATED
[2022-01-07] MEDS: MINERAL OIL PO SCH ×3 (09:04→21:32)
[2022-01-07] MEDS: Cymbalta 30 MG Capsule PO SCH ×2 (09:04→21:31)
[2022-01-07] MEDS: Ms Contin 15 MG PO SCH ×2 (09:04→21:32)
[2022-01-07] MEDS ORDERED: DELTASONE 5 MG PO SCH (14:00)
[2022-01-07] MEDS: Acidophilus TABLET PO SCH (14:30)
[2022-01-07] MEDS: ECOTRIN 81 MG PO SCH (14:31)
[2022-01-07] MEDS: PROTONIX 40 MG IV IV SCH (18:08)
[2022-01-07] MEDS: DILAUDID 1 MG/1ML PCA IV PRN (19:12)
[2022-01-07] MEDS: Zocor 10MG PO SCH (21:31)
[2022-01-07] MEDS: Vasotec 10 MG PO SCH (21:31)
[2022-01-07] MEDS: HUMALOG SQ PRN (21:55)
[2022-01-08] MEDS: SODIUM CHLORIDE 0.9% IV SCH ×3 (01:52→17:12)
[2022-01-08] MEDS: ZOVIRAX IV SCH ×3 (01:52→17:12)
[2022-01-08] MEDS: Sodium Chloride 0.9% 1000 ML 1,000 ML IV SCH ×2 (02:08→13:52)
[2022-01-08] MEDS: DILAUDID 1 MG/1ML PCA IV PRN (02:40)
[2022-01-08] MEDS: solu-CORTEF 100MG IV SCH ×3 (06:09→21:41)
--- NOTE | 2022-01-08 08:51 | PCM.NOTE ---
Date and Time: 01/08/22 0849 Subjective Assessment: patient is tolerating po intake and headache/neck pain has improved since admission. he is in no distress and answers all questions appropriately, pleasant and conversant Objective Exam General Appearance: no apparent distress, obese Neurologic Exam: alert, oriented x 3, cooperative Skin Exam: normal color, warm, dry Neck Exam: supple Respiratory Exam: normal breath sounds, lungs clear, No respiratory distress Cardiovascular Exam: regular rate/rhythm, normal heart sounds Gastrointestinal/Abdomen Exam: soft, No tenderness, No mass Extremity Exam: normal inspection, normal range of motion OBJECTIVE DATA Vital Signs: Vital Signs - 24 hr Temp Pulse Resp BP Pulse Ox 01/08/22 08:15 97 01/08/22 07:38 97.3 F 80 18 116/76 96 01/08/22 03:30 97.9 F 77 19 115/67 98 01/07/22 23:43 96.8 F 84 18 121/71 97 01/07/22 20:00 97.5 F 108 H 20 120/77 98 01/07/22 19:57 95 01/07/22 16:00 97.5 F 78 16 117/71 96 01/07/22 15:55 95 01/07/22 11:55 97.8 F 81 16 118/62 95 Pain Assessment - Last Documented Pain Intensity 0 Pain Scale Used 0-10 Pain Scale Intake and Output: Intake & Output 01/05/22 01/06/22 01/07/22 01/08/22 11:59 11:59 11:59 11:59 Intake Total 2351 2705 Output Total 2125 3450 Balance 226 -745 Weight 108.4 kg Lab Results: Lab Results-Last 24 Hours 01/07/22 01/07/22 01/08/22 Range/Units 16:40 20:41 07:00 POC Glucometer 79 283 H 83 (74 to 106) mg/dL Assessment/Plan (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 slowly improving clinically Code(s): G03.2 - BENIGN RECURRENT MENINGITIS [MOLLARET] (2) Chronic pain syndrome Current Visit: No Status: Acute Code(s): G89.4 - CHRONIC PAIN SYNDROME (3) Hypertension Current Visit: No Status: Chronic Onset Date: ~11/01/18 Qualifiers: Hypertension type: essential hypertension Qualified Code(s): I10 - Essential (primary) hypertension Assessment & Plan: well controlled, stable on home meds Code(s): I10 - ESSENTIAL (PRIMARY) HYPERTENSION
[2022-01-08] MEDS ORDERED: NON-FORMULARY ITEM (Aspirin [Aspirin] 81 MG Tablet) PO SCH (10:00)
[2022-01-08] MEDS ORDERED: NON-FORMULARY ITEM (L.Acidoph,Paracasei, B.Lactis [Probiotic] 1 EACH Capsule) PO SCH (10:00)
[2022-01-08] MEDS: Acidophilus TABLET PO SCH (10:08)
[2022-01-08] MEDS: ECOTRIN 81 MG PO SCH (10:08)
[2022-01-08] MEDS: Ms Contin 15 MG PO SCH ×2 (10:08→21:40)
[2022-01-08] MEDS: MINERAL OIL PO SCH ×3 (10:09→21:41)
[2022-01-08] MEDS: Cymbalta 30 MG Capsule PO SCH ×2 (10:09→21:41)
[2022-01-08] MEDS: PROTONIX 40 MG IV IV SCH (10:10)
[2022-01-08] MEDS: HUMALOG SQ PRN ×2 (17:11→21:56)
[2022-01-08] MEDS: Zocor 10MG PO SCH (21:41)
[2022-01-08] MEDS: Vasotec 10 MG PO SCH (21:41)
[2022-01-09] MEDS: Sodium Chloride 0.9% 1000 ML 1,000 ML IV SCH ×2 (00:42→12:36)
[2022-01-09] MEDS: ZOVIRAX IV SCH ×3 (01:32→18:00)
[2022-01-09] MEDS: SODIUM CHLORIDE 0.9% IV SCH ×3 (01:32→18:00)
[2022-01-09 05:10] LABS: Absolute Neutrophil Ct (ANC) 7.98 (1.4-6.9); Basophil (Absolute #) 0.03 (0-0.4); Eosinophil % 0.3 % (0.00-5.0); Eosinophil (Absolute #) 0.04 (0-0.5); Hematocrit 41.7 % (42-50); Hemoglobin 13.2 gm/dl (12.5-18.0); Lymphocyte (Absolute #) 3.44 (1.0-4.6); Lymphocytes % 28.2 % (24.0-44.0); Mean Cell Volume 93.3 fl (78-100); Mean Corpuscular Hemoglobin 29.5 pg (26-32); Mean Corpuscular Hgb Concent. 31.7 g/dl (32-36); Mean Platelet Volume 10.2 fl (7.5-11.0); Monocyte (Absolute #) 0.73 (0.0-1.3); Neutrophil % 65.3 % (36.0-66.0); Platelet Count 383 K/mm3 (150-450); Red Blood Count 4.47 M/mm3 (4.1-5.6); Red Cell Distribution Width 15.1 % (11.5-14.0); White Blood Count 12.2 K/mm3 (4.0-10.5)
[2022-01-09 05:22] LABS: ANION GAP 7.8 MEQ/L (5-15); BLOOD UREA NITROGEN 8 mg/dL (9-20); CHLORIDE 105 mmol/L (98-107); Carbon Dioxide 29 mmol/L (22-30); Creatinine 1 0.65 mg/dL (0.66-1.25); EST GLOMERULAR FILTRATION RATE > 60.0 ML/MIN; Glucose 119 mg/dL (74-106); SODIUM 138 mmol/L (137-145)
[2022-01-09] MEDS: solu-CORTEF 100MG IV SCH ×3 (06:21→21:56)
--- NOTE | 2022-01-09 08:57 | PCM.NOTE ---
Date and Time: 01/09/22 0856 Subjective Assessment: patient improving, still has head and neck pain but overall doing better and was able to get some sleep last night. tolerating po intake, no fever, no other concerns. Objective Exam General Appearance: no apparent distress, obese Neurologic Exam: alert, oriented x 3 Respiratory Exam: normal breath sounds, lungs clear, No respiratory distress Cardiovascular Exam: regular rate/rhythm, normal heart sounds Gastrointestinal/Abdomen Exam: soft, No tenderness, No mass Extremity Exam: normal inspection, normal range of motion OBJECTIVE DATA Vital Signs: Vital Signs - 24 hr Temp Pulse Resp BP Pulse Ox 01/09/22 07:49 97.5 F 75 18 119/68 95 01/09/22 06:57 95 01/09/22 04:00 97.8 F 78 18 108/62 96 01/09/22 00:00 98.2 F 77 18 132/80 94 L 01/08/22 20:00 97.9 F 90 18 122/61 95 01/08/22 18:50 94 L 01/08/22 16:00 96.9 F 84 16 136/87 98 01/08/22 11:55 97.3 F 80 16 119/68 94 L Pain Assessment - Last Documented Pain Intensity 7 Pain Scale Used 0-10 Pain Scale Intake and Output: Intake & Output 01/06/22 01/07/22 01/08/22 01/09/22 11:59 11:59 11:59 11:59 Intake Total 2351 3185 4503 Output Total 2125 3750 1800 Balance 226 -565 2703 Weight 108.4 kg Lab Results: Lab Results-Last 24 Hours 01/08/22 01/08/22 01/08/22 Range/Units 10:52 11:07 16:18 WBC (4.0-10.5) K/mm3 RBC (4.1-5.6) M/mm3 Hgb (12.5-18.0) gm/dl Hct (42-50) % MCV (78-100) fl MCH (26-32) pg MCHC (32-36) g/dl RDW (11.5-14.0) % Plt Count (150-450) K/mm3 MPV (7.5-11.0) fl Gran % (36.0-66.0) % Eos # (Auto) (0-0.5) Absolute Lymphs (auto) (1.0-4.6) Absolute Monos (auto) (0.0-1.3) Lymphocytes % (24.0-44.0) % Monocytes % (0.0-12.0) % Eosinophils % (0.00-5.0) % Basophils % (0.0-0.4) % Absolute Granulocytes (1.4-6.9) Basophils # (0-0.4) Sodium (137-145) mmol/L Potassium (3.5-5.1) mmol/L Chloride (98-107) mmol/L Carbon Dioxide (22-30) mmol/L Anion Gap (5-15) MEQ/L BUN (9-20) mg/dL Creatinine (0.66-1.25) mg/dL Estimated GFR ML/MIN Glucose (74-106) mg/dL POC Glucometer 160 H 223 H (74 to 106) mg/dL Hemoglobin A1c 6.53 H (4.5-6.0) % Calcium (8.4-10.2) mg/dL 01/09/22 01/09/22 Range/Units 04:45 04:45 WBC 12.2 H (4.0-10.5) K/mm3 RBC 4.47 (4.1-5.6) M/mm3 Hgb 13.2 (12.5-18.0) gm/dl Hct 41.7 L (42-50) % MCV 93.3 (78-100) fl MCH 29.5 (26-32) pg MCHC 31.7 L (32-36) g/dl RDW 15.1 H (11.5-14.0) % Plt Count 383 (150-450) K/mm3 MPV 10.2 (7.5-11.0) fl Gran % 65.3 (36.0-66.0) % Eos # (Auto) 0.04 (0-0.5) Absolute Lymphs (auto) 3.44 (1.0-4.6) Absolute Monos (auto) 0.73 (0.0-1.3) Lymphocytes % 28.2 (24.0-44.0) % Monocytes % 6.0 (0.0-12.0) % Eosinophils % 0.3 (0.00-5.0) % Basophils % 0.2 (0.0-0.4) % Absolute Granulocytes 7.98 H (1.4-6.9) Basophils # 0.03 (0-0.4) Sodium 138 (137-145) mmol/L Potassium 4.0 (3.5-5.1) mmol/L Chloride 105 (98-107) mmol/L Carbon Dioxide 29 (22-30) mmol/L Anion Gap 7.8 (5-15) MEQ/L BUN 8 L (9-20) mg/dL Creatinine 0.65 L (0.66-1.25) mg/dL Estimated GFR > 60.0 ML/MIN Glucose 119 H (74-106) mg/dL POC Glucometer (74 to 106) mg/dL Hemoglobin A1c (4.5-6.0) % Calcium 8.0 L (8.4-10.2) mg/dL Multi-Disciplinary Progress Notes: Multi-Disciplinary Progress Notes 01/08/22 10:20 Case Management Note by Kasie Garcia REVIEWED CHART- NO CHANGE IN DC PLANS AT THIS TIME Initialized on 01/08/22 10:20 - END OF NOTE Assessment/Plan (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 Code(s): G03.2 - BENIGN RECURRENT MENINGITIS [MOLLARET] (2) Chronic pain syndrome Current Visit: No Status: Acute Code(s): G89.4 - CHRONIC PAIN SYNDROME (3) Hypertension Current Visit: No Status: Chronic Onset Date: ~11/01/18 Qualifiers: Hypertension type: essential hypertension Qualified Code(s): I10 - Essential (primary) hypertension Code(s): I10 - ESSENTIAL (PRIMARY) HYPERTENSION
[2022-01-09] MEDS: PROTONIX 40 MG IV IV SCH (09:57)
[2022-01-09] MEDS: DILAUDID 1 MG/1ML PCA IV PRN (10:01)
[2022-01-09] MEDS: Cymbalta 30 MG Capsule PO SCH ×2 (10:03→22:00)
[2022-01-09] MEDS: Ms Contin 15 MG PO SCH ×2 (10:03→21:53)
[2022-01-09] MEDS: ECOTRIN 81 MG PO SCH (10:03)
[2022-01-09] MEDS: Acidophilus TABLET PO SCH (10:03)
[2022-01-09] MEDS: MINERAL OIL PO SCH ×3 (10:04→21:54)
[2022-01-09] MEDS: Zocor 10MG PO SCH (21:55)
[2022-01-09] MEDS: Vasotec 10 MG PO SCH (21:55)
[2022-01-09] MEDS: HUMALOG SQ PRN (21:56)
[2022-01-10] MEDS: ZOVIRAX IV SCH ×2 (01:43→10:03)
[2022-01-10] MEDS: SODIUM CHLORIDE 0.9% IV SCH ×2 (01:43→10:03)
[2022-01-10] MEDS: solu-CORTEF 100MG IV SCH (06:05)
[2022-01-10 07:29] VITALS: BP 150/84; PULSE 80; O2SAT 97
--- NOTE | 2022-01-10 08:37 | PCM.DS ---
Discharge Summary Date of Admission: 01/07/22 08:28 Admitting Physician: ANN ALEXIS Primary Care Provider: ANN ALEXIS Allergies Allergies pregabalin [From Lyrica] Adverse Reaction (Severe, Verified 01/06/22 14:04) Hives SOB hives azithromycin [From Zmax] Adverse Reaction (Mild, Verified 01/06/22 14:04) vomiting Hospital Summary - Hospital Course Hospital Course: patient admitted with acute exacerbation of benign recurrent aseptic meningitis (Mollaret's syndrome) he is doing much better after IV acyclovir, solu cortef, hydration and IV analgesia. tolerating po and pain much improved - Vitals & Intake/Output Vital Signs: Vital Signs Temperature 97.7 F 01/10/22 07:28 Pulse Rate 80 01/10/22 07:28 Respiratory Rate 18 01/10/22 07:28 Blood Pressure 150/84 01/10/22 07:28 O2 Sat by Pulse Oximetry 97 01/10/22 07:28 Intake & Output: Intake & Output 01/07/22 01/08/22 01/09/22 01/10/22 11:59 11:59 11:59 11:59 Intake Total 2351 3185 4863 1558 Output Total 2125 3750 1800 3310 Balance 226 -062 3063 -1142 Weight 108.4 kg 108.4 kg - Lab Result Diagrams: 01/09/22 04:45 01/09/22 04:45 Lab Results-Last 24 Hrs: Lab Results-Last 24 Hours 01/08/22 01/09/22 01/09/22 Range/Units 21:38 07:08 11:59 POC Glucometer 206 H 89 121 H (74 to 106) mg/dL 01/09/22 01/09/22 01/10/22 Range/Units 15:57 21:27 06:42 POC Glucometer 181 H 229 H 109 H (74 to 106) mg/dL Micro Results-Entire Visit: Accuchecks Date 01/09/22 Date 01/09/22 Date 01/09/22 Time 22:00 Time 17:25 Time 12:05 - Procedures and Test Procedures and Tests throughout Hospitalization: Therapy Orders & Screens 01/06/22 17:40 OT Screen per Nursing Assess ONCE Comment: Protocol Order Physician Instructions: Greater than 3 points order OT Admission Screening Reason For Exam: Triggered on Admission Diagnosis: Menengitis flare up Open Wound/Cellutlitis/Pressure Ulcers: No Acute Fx/ORIF/Change in wt bearing status: No Severe MUSCULOSKELETAL pain: Yes ADL Dysfunction: No Acute CVA w/Hemiparesis/Hemiplegia: No Decreased Functional Mobility/Strength: No Sprain/Strain: No Acute Post-op Mobility Dysfunction: No Total Points: 5 PT Screen per Nursing Assess ONCE Comment: Protocol Order Physician Instructions: Greater than 3 points order PT Admission Screenin Reason For Exam: Triggered on Admission Diagnosis: Menengitis flare up Open Wound/Cellutlitis/Pressure Ulcers: No Acute Fx/ORIF/Change in wt bearing status: No Severe MUSCULOSKELETAL pain: Yes ADL Dysfunction: No Acute CVA w/Hemiparesis/Hemiplegia: No Decreased Functional Mobility/Strength: No Sprain/Strain: No Acute Post-op Mobility Dysfunction: No Total Points: 5 Discharge Exam General Appearance: no apparent distress, obese Neurologic Exam: alert, oriented x 3 Respiratory Exam: normal breath sounds, lungs clear, No respiratory distress Cardiovascular Exam: regular rate/rhythm, normal heart sounds Gastrointestinal/Abdomen Exam: soft, No tenderness, No mass Extremity Exam: normal inspection, normal range of motion Skin Exam: normal color, warm, dry Final Diagnosis/Problem List - Final Discharge Diagnosis/Problem (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 Onset Date: ~11/01/18 Assessment & Plan: acute flare resolving, home on po prednisone and acyclovir Code(s): G03.2 - BENIGN RECURRENT MENINGITIS [MOLLARET] (2) Chronic pain syndrome Current Visit: No Status: Acute Code(s): G89.4 - CHRONIC PAIN SYNDROME (3) Hypertension Current Visit: No Status: Chronic Onset Date: ~11/01/18 Code(s): I10 - ESSENTIAL (PRIMARY) HYPERTENSION - Discharge Disposition: Home, Self-Care Condition: Stable Prescriptions: New Prednisone 20 mg [Deltasone 20 mg] 20 mg PO UD #18 tablet Acyclovir 800 mg [Zovirax 800 mg] 800 mg PO TID #21 tablet Acyclovir 800 mg [Zovirax 800 mg] 800 mg PO TID 7 Days #21 tablet Continue Enalapril Maleate 10 mg [Vasotec 10 MG] 20 mg PO HS Multivitamin [Multi-Vitamin Daily] 1 each PO DAILY Aspirin 81 mg PO DAILY Mineral Oil 30 ml PO TID Testosterone Cypionate 1.25 ml IM UD Duloxetine HCl [Cymbalta] 60 mg PO BID Prednisone 10 mg [Deltasone 10 mg] 15 mg PO DAILY PANTOPRAZOLE 40 mg Tablet [Protonix 40MG Tablet] 40 mg PO QPM Morphine Sulfate/Pf [Morphine 10 mg/10 ml Vial] 15.6 mg IJ DAILY L.acidoph,Paracasei, B.lactis [Probiotic] 2 each PO DAILY Metformin HCl 500 mg [Glucophage 500 MG] 1,000 mg PO BIDWM Morphine Sulfate Ir 15 mg [Msir 15 mg] 15 mg PO Q6H PRN PRN 2 Days #8 tablet MDD 60 PRN Reason: Pain Atorvastatin Calcium [Lipitor] 10 mg PO HS Follow up with: ANN ALEXIS MD [Primary Care Provider] - 1 Week
[2022-01-10] MEDS: MINERAL OIL PO SCH (09:19)
[2022-01-10] MEDS: PROTONIX 40 MG IV IV SCH (09:20)
[2022-01-10] MEDS: Cymbalta 30 MG Capsule PO SCH (09:20)
[2022-01-10] MEDS: ECOTRIN 81 MG PO SCH (09:21)
[2022-01-10] MEDS: Acidophilus TABLET PO SCH (09:21)
[2022-01-10] MEDS: Ms Contin 15 MG PO SCH (09:21)
== END 2022-01-10 09:50 | disposition home or self-care (01) | DRG 75 ==
LOC: ED 13:57 → MED SURG 17:10 → OBSVTOIN 01-07 08:28
PROVIDERS: ADMIT Family Medicine; ATTEND Family Medicine
DX: G03.2 Benign recurrent meningitis [Mollaret] (principal); F11.20 Opioid dependence, uncomplicated; G89.4 Chronic pain syndrome; I10 Essential (primary) hypertension; E11.9 Type 2 diabetes mellitus without complications; Z79.899 Other long term (current) drug therapy
CPT/HCPCS: 0241U; 36415; 80048; 80053; 82947; 83036; 83605; 85025; 94762; 96374; 96375; 99284; G0378; J0133; J1170; J1720; J1817; J2405; A9270-GY

== ENCOUNTER 2022-02-06 15:33 | Inpatient (IN) | payer MEDICARE, BC ==
--- NOTE | 2022-02-06 15:37 | ERPHSYRPT ---
- History of Present Illness Time Seen by Provider: 02/06/22 15:37 Source: patient Exam Limitations: no limitations Physician History: This is a 52-year-old white male patient of Dr. 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 Patient denies chest pain. He denies shortness of breath he has no abdominal pain. Patient is on pain pump and takes morphine orally as well. However, when these flareups occur he is typically admitted and given IV hydration, placed on a Dilaudid ANIMAL COP pump and given to venous acyclovir and intravenous Solu-Cortef. Timing/Duration: day(s) (Yesterday and worse today), worse Severity: moderate Associated Symptoms: nausea, other Allergies/Adverse Reactions: pregabalin [From Lyrica] Adverse Reaction (Severe, Verified 02/06/22 15:41) Hives SOB hives azithromycin [From Zmax] Adverse Reaction (Mild, Verified 02/06/22 15:41) vomiting Home Medications: Aspirin 81 mg PO DAILY 01/24/14 [History] Enalapril Maleate 10 mg [Vasotec 10 MG] 20 mg PO HS 01/24/14 [History] Mineral Oil 30 ml PO TID 01/24/14 [History] Multivitamin [Multi-Vitamin Daily] 1 each PO DAILY 01/24/14 [History] Testosterone Cypionate 1.25 ml IM UD 10/09/14 [History] Duloxetine HCl [Cymbalta] 60 mg PO BID 04/23/15 [History] Prednisone 10 mg [Deltasone 10 mg] 15 mg PO DAILY 04/23/15 [History] PANTOPRAZOLE 40 mg Tablet [Protonix 40MG Tablet] 40 mg PO QPM 11/02/18 [History] Morphine Sulfate/Pf [Morphine 10 mg/10 ml Vial] 15.6 mg IJ DAILY 07/29/19 [History] L.acidoph,Paracasei, B.lactis [Probiotic] 2 each PO DAILY 10/23/19 [History] Metformin HCl 500 mg [Glucophage 500 MG] 1,000 mg PO BIDWM 04/20/20 [History] Atorvastatin Calcium [Lipitor] 10 mg PO HS 01/06/22 [History] Hx Tetanus, Diphtheria Vaccination/Date Given: Yes Hx Influenza Vaccination/Date Given: No Hx Pneumococcal Vaccination/Date Given: Yes Travel Risk - International Travel Have you traveled outside of the country in past 3 weeks: No - Coronavirus Screening Are you exhibiting any of the following symptoms?: No Close contact with a COVID-19 positive Pt in past 14-21 Days: No - Vaccine Status Have you recieved a Covid-19 vaccination: Yes 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 - Review of Systems Constitutional: No Symptoms Eyes: No Symptoms Ears, Nose, & Throat: No Symptoms Respiratory: No Symptoms Cardiac: No Symptoms Abdominal/Gastrointestinal: Constipation Genitourinary Symptoms: No Symptoms Musculoskeletal: Back Pain, Neck Pain, No Fall, No Injury Skin: No Symptoms Neurological: No Symptoms Psychological: No Symptoms Endocrine: No Symptoms Hematologic/Lymphatic: No Symptoms Immunological/Allergic: No Symptoms All Other Systems: Reviewed and Negative - Past Medical History Pertinent Past Medical History: Yes Neurological History: Other ENT History: No Pertinent History Cardiac History: Hypertension Respiratory History: No Pertinent History Endocrine Medical History: No Pertinent History Musculoskeletal History: No Pertinent History GI Medical History: Other History: No Pertinent History Psycho-Social History: No Pertinent History Male Reproductive Disorders: No Pertinent History Other Medical History: Mollaret's, spleen removed - Past Surgical History Past Surgical History: Yes Neuro Surgical History: No Pertinent History Cardiac: No Pertinent History Respiratory: No Pertinent History Gastrointestinal: Other Genitourinary: No Pertinent History Musculoskeletal: No Pertinent History Male Surgical History: Vasectomy Other Surgical History: spleen removed, apendectomy, 2 nasal surgeries - Social History Smoking Status: Never smoker Exposure to second hand smoke: No Alcohol Use: None Drug Use: none Patient Lives Alone: Yes Significant Family History: no pertinent family hx - Nursing Vital Signs Nursing Vital Signs: Initial Vital Signs Temperature 96.8 F 02/06/22 15:42 Pulse Rate 117 H 02/06/22 15:42 Respiratory Rate 22 02/06/22 15:42 Blood Pressure 128/72 02/06/22 15:42 O2 Sat by Pulse Oximetry 99 02/06/22 15:42 Pain Scale Pain Intensity 9 - Physical Exam General Appearance: no apparent distress, alert, anxiety Eye Exam: PERRL/EOMI, eyes nml inspection Ears, Nose, Throat Exam: normal ENT inspection, moist mucous membranes Neck Exam: normal inspection, non-tender, supple, full range of motion Respiratory Exam: normal breath sounds, lungs clear, airway intact, No chest tenderness, No respiratory distress Cardiovascular Exam: tachycardia Gastrointestinal/Abdomen Exam: soft, normal bowel sounds, No tenderness Rectal Exam: not done Back Exam: normal inspection, decreased range of motion, No CVA tenderness, No vertebral tenderness Extremity Exam: normal inspection, normal range of motion, pelvis stable Neurologic Exam: alert, oriented x 3, cooperative, normal mood/affect, nml cerebellar function, nml station & gait, sensation nml Skin Exam: normal color, warm, dry Lymphatic Exam: No adenopathy SpO2 Interpretation: normal O2 Delivery: Room Air - Course Nursing assessment & vital signs reviewed: Yes - Progress Progress: improved, pain not gone completely, re-examined Progress Note: 02/06/22 16:14 Medical decision making: This patient is well-known to our emergency department and to Dr. Alexis. I spoke with Dr. Alexis, the patient's primary care provider. We are going to place him in observation and then provide the patient with a Dilaudid ANIMAL COP pump, provide him with intravenous acyclovir and intravenous Solu- Cortef. We will also give him IV hydration. 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
[2022-02-06 16:27] LABS: Absolute Neutrophil Ct (ANC) 12.14 (1.4-6.9); Basophil (Absolute #) 0.05 (0-0.4); Eosinophil % 0.8 % (0.00-5.0); Eosinophil (Absolute #) 0.11 (0-0.5); Hematocrit 50.6 % (42-50); Hemoglobin 16.5 gm/dl (12.5-18.0); Lymphocyte (Absolute #) 1.67 (1.0-4.6); Lymphocytes % 11.7 % (24.0-44.0); Mean Cell Volume 89.1 fl (78-100); Mean Corpuscular Hgb Concent. 32.6 g/dl (32-36); Mean Platelet Volume 10.5 fl (7.5-11.0); Monocyte (Absolute #) 0.36 (0.0-1.3); Monocytes % 2.5 % (0.0-12.0); Neutrophil % 84.7 % (36.0-66.0); Platelet Count 404 K/mm3 (150-450); Red Blood Count 5.68 M/mm3 (4.1-5.6); Red Cell Distribution Width 14.7 % (11.5-14.0); White Blood Count 14.3 K/mm3 (4.0-10.5)
[2022-02-06] MEDS ORDERED: Hydromorphone 1 mg/ml Injection IV ONE (16:35)
[2022-02-06] MEDS ORDERED: Zofran 4 MG/2 ML VIAL IV ONE (16:35)
[2022-02-06] MEDS ORDERED: Hydromorphone 1 mg/ml Injection ONE (16:37)
[2022-02-06] MEDS ORDERED: Zofran 4 MG/2 ML VIAL ONE (16:37)
[2022-02-06 16:46] LABS: ALBUMIN 4.5 g/dL (3.5-5.0); ALKALINE PHOSPHATASE 91 U/L (38-126); ANION GAP 20.7 MEQ/L (5-15); BLOOD UREA NITROGEN 18 mg/dL (9-20); CHLORIDE 99 mmol/L (98-107); Calcium 9.9 mg/dL (8.4-10.2); Carbon Dioxide 21 mmol/L (22-30); EST GLOMERULAR FILTRATION RATE > 60.0 ML/MIN; Glucose 161 mg/dL (74-106); Potassium 5.2 mmol/L (3.5-5.1); SGOT/AST 40 U/L (17-59); SGPT/ALT 30 U/L (0-50); SODIUM 136 mmol/L (137-145); Total Protein 7.4 g/dL (6.3-8.2)
[2022-02-06 18:03] LABS: INFLUENZA A NEGATIVE (NEGATIVE); INFLUENZA B NEGATIVE (NEGATIVE); RESPIRATORY SYNCTIAL VIRUS NEGATIVE (Negative); SARS-CoV-2 Xpert Express NEGATIVE (NEGATIVE)
[2022-02-06] MEDS ORDERED: TYLENOL 325 MG PO PRN (18:18)
[2022-02-06] MEDS ORDERED: Zofran 4 MG/2 ML VIAL IV PRN (18:18)
[2022-02-06] MEDS: DILAUDID 1 MG/1ML PCA IV PRN (18:32)
[2022-02-06] MEDS: solu-CORTEF 100MG IV SCH (18:35)
[2022-02-06] MEDS: Sodium Chloride 0.9% 1000 ML 1,000 ML IV SCH (18:35)
[2022-02-06] MEDS ORDERED: Protonix 40MG Tablet ONE (20:51)
[2022-02-06] MEDS: Vasotec 10 MG PO SCH (20:52)
[2022-02-06] MEDS: Cymbalta 30 MG Capsule PO SCH (20:52)
[2022-02-06] MEDS: Zocor 10MG PO SCH (20:53)
[2022-02-06] MEDS: Ms Contin 15 MG PO SCH (20:53)
[2022-02-06] MEDS ORDERED: Protonix 20MG Tablet PO SCH (22:00)
[2022-02-07] MEDS: solu-CORTEF 100MG IV SCH ×3 (01:47→17:58)
[2022-02-07] MEDS: Ms Contin 15 MG PO SCH (05:32)
[2022-02-07] MEDS: MINERAL OIL PO SCH ×4 (05:36→21:56)
[2022-02-07] MEDS ORDERED: Sodium Chloride 0.9% 1000 ML 1,000 ML ONE (07:26)
[2022-02-07] MEDS: Sodium Chloride 0.9% 1000 ML 1,000 ML IV SCH (07:26)
[2022-02-07] MEDS ORDERED: ZOVIRAX IV SCH (08:15)
[2022-02-07] MEDS ORDERED: SODIUM CHLORIDE 0.9% IV SCH (08:15)
--- NOTE | 2022-02-07 08:18 | PCM.HP ---
History of Present Illness - Chief Complaint Chief Complaint: Mollarett's syndrome History of Present Illness: is a 52 year old male with a longstanding history of chronic pain and recurrent benign aseptic meningitis (Mollaret's syndrome) He presented yesterday with his usual symptoms of a typical flare including headache, neck and back pain that are severe and worsening in spite of oral morphine and an implanted pain pump. He typically requires admission during flares for IV acyclovir and steroids with hydration, he is tolerating po and is in no distress this morning. - Review of Systems Constitutional: No Fever, No Chills Respiratory: No Cough, No Short Of Breath Cardiac: No Chest Pain, No Edema, No Syncope Abdominal/Gastrointestinal: No Abdominal Pain, No Nausea, No Vomiting, No Diarrhea Musculoskeletal: Back Pain, Neck Pain Neurological: Headache, No Dizziness, No Focal Weakness, No Gait Changes, No Par asthesia, No Seizure, No Sensory Changes Psychological: No Symptoms Medications & Allergies Home Medications: Home Medication List Aspirin 81 mg PO DAILY 01/24/14 [History Confirmed 02/06/22] Enalapril Maleate 10 mg [Vasotec 10 MG] 20 mg PO HS 01/24/14 [History Confirmed 02/06/22] Mineral Oil 30 ml PO TID 01/24/14 [History Confirmed 02/06/22] Multivitamin [Multi-Vitamin Daily] 1 each PO DAILY 01/24/14 [History Confirmed 02/06/22] Testosterone Cypionate 1.25 ml IM UD 10/09/14 [History Confirmed 02/06/22] Duloxetine HCl [Cymbalta] 60 mg PO BID 04/23/15 [History Confirmed 02/06/22] Prednisone 10 mg [Deltasone 10 mg] 15 mg PO DAILY 04/23/15 [History Confirmed 02/06/22] PANTOPRAZOLE 40 mg Tablet [Protonix 40MG Tablet] 40 mg PO QPM 11/02/18 [History Confirmed 02/06/22] Morphine Sulfate/Pf [Morphine 10 mg/10 ml Vial] 15.6 mg IJ DAILY 07/29/19 [History Confirmed 02/06/22] L.acidoph,Paracasei, B.lactis [Probiotic] 2 each PO DAILY 10/23/19 [History Confirmed 02/06/22] Metformin HCl 500 mg [Glucophage 500 MG] 1,000 mg PO BIDWM 04/20/20 [History Confirmed 02/06/22] Morphine Sulfate Ir 15 mg [Msir 15 mg] 15 mg PO Q6H PRN PRN 2 Days #8 tablet MDD 60 12/14/21 [Rx Confirmed 02/06/22] Atorvastatin Calcium [Lipitor] 10 mg PO HS 01/06/22 [History Confirmed 02/06/22] Allergies/Adverse Reactions: Allergies Allergy/AdvReac Type Severity Reaction Status Date / Time pregabalin [From Lyrica] AdvReac Severe Hives Verified 02/06/22 15:41 azithromycin [From Zmax] AdvReac Mild Verified 02/06/22 15:41 - Past Medical History Past Medical History: Yes Neurological History: Other ENT History: No Pertinent History Cardiac History: Hypertension Respiratory History: No Pertinent History Endocrine Medical History: No Pertinent History Musculoskelatal History: No Pertinent History GI Medical History: Other History: No Pertinent History Pyscho-Social History: No Pertinent History Male Reproductive Disorders: No Pertinent History Comment: Mollaret's, spleen removed - Past Surgical History Past Surgical History: Yes Neuro Surgical History: No Pertinent History Cardiac History: No Pertinent History Respiratory Surgery: No Pertinent History GI Surgical History: Other Genitourinary Surgical Hx: No Pertinent History Musculskeletal Surgical Hx: No Pertinent History Male Surgical History: Vasectomy Other Surgical History: spleen removed, apendectomy, 2 nasal surgeries - Social History Smoking Status: Never smoker Exposure to second hand smoke: No Alcohol: Rarely Drug Use: none Significant Family History: no pertinent family hx - Physical Exam Vital Signs: Vital Signs - 24 hr Temp Pulse Resp BP Pulse Ox 02/07/22 08:00 97.5 F 79 18 119/64 95 02/07/22 04:00 98.0 F 68 18 117/75 98 02/07/22 00:10 97.5 F 108 H 18 120/74 95 02/06/22 20:00 97.6 F 90 19 121/78 98 02/06/22 19:38 97.6 F 90 18 128/78 98 02/06/22 18:32 98 02/06/22 17:00 95 H 138/84 98 02/06/22 16:34 103 H 123/79 96 04/07/22 15:42 96.8 F 117 H 22 128/72 99 General Appearance: no apparent distress, obese Neurologic Exam: alert, oriented x 3, cooperative Neck Exam: supple, full range of motion Respiratory Exam: normal breath sounds, lungs clear, No respiratory distress Cardiovascular Exam: regular rate/rhythm, normal heart sounds, normal peripheral pulses Gastrointestinal/Abdomen Exam: soft, normal bowel sounds, No tenderness, No mass Extremity Exam: normal inspection, normal range of motion, pelvis stable Skin Exam: normal color, warm, dry, No rash Results - Labs Lab/Micro Results: Lab Results-Last 24 Hours 02/06/22 02/06/22 02/06/22 Range/Units 16:15 16:15 17:17 WBC 14.3 H (4.0-10.5) K/mm3 RBC 5.68 H (4.1-5.6) M/mm3 Hgb 16.5 (12.5-18.0) gm/dl Hct 50.6 H (42-50) % MCV 89.1 (78-100) fl MCH 29.0 (26-32) pg MCHC 32.6 (32-36) g/dl RDW 14.7 H (11.5-14.0) % Plt Count 404 (150-450) K/mm3 MPV 10.5 (7.5-11.0) fl Gran % 84.7 H (36.0-66.0) % Eos # (Auto) 0.11 (0-0.5) Absolute Lymphs (auto) 1.67 (1.0-4.6) Absolute Monos (auto) 0.36 (0.0-1.3) Lymphocytes % 11.7 L (24.0-44.0) % Monocytes % 2.5 (0.0-12.0) % Eosinophils % 0.8 (0.00-5.0) % Basophils % 0.3 (0.0-0.4) % Absolute Granulocytes 12.14 H (1.4-6.9) Basophils # 0.05 (0-0.4) Sodium 136 L (137-145) mmol/L Potassium 5.2 H (3.5-5.1) mmol/L Chloride 99 (98-107) mmol/L Carbon Dioxide 21 L (22-30) mmol/L Anion Gap 20.7 H (5-15) MEQ/L BUN 18 (9-20) mg/dL Creatinine 0.80 (0.66-1.25) mg/dL Estimated GFR > 60.0 ML/MIN Glucose 161 H (74-106) mg/dL Calcium 9.9 (8.4-10.2) mg/dL Total Bilirubin 0.50 (0.2-1.3) mg/dL AST 40 (17-59) U/L ALT 30 (0-50) U/L Alkaline Phosphatase 91 (38-126) U/L Serum Total Protein 7.4 (6.3-8.2) g/dL Albumin 4.5 (3.5-5.0) g/dL Influenza Type A Ag NEGATIVE (NEGATIVE) Influenza Type B Ag NEGATIVE (NEGATIVE) RSV (PCR) NEGATIVE (Negative) SARS-CoV-2 (PCR) NEGATIVE (NEGATIVE) Assessment/Plan (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 Onset Date: ~11/01/18 Assessment & Plan: continue IV acyclovir and solu cortef, 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 will likely require 2-3 d ays of treatment to be improved for discharge as per his usual course Code(s): G03.2 - BENIGN RECURRENT MENINGITIS [MOLLARET] (2) Chronic pain syndrome Current Visit: No Status: Acute Code(s): G89.4 - CHRONIC PAIN SYNDROME (3) Diabetes mellitus Current Visit: No Status: Chronic Qualifiers: Code(s): E11.9 - TYPE 2 DIABETES MELLITUS WITHOUT COMPLICATIONS (4) Hypertension Current Visit: No Status: Chronic Onset Date: ~11/01/18 Code(s): I10 - ESSENTIAL (PRIMARY) HYPERTENSION
[2022-02-07] MEDS: ZOVIRAX IV SCH ×3 (09:58→21:58)
[2022-02-07] MEDS: SODIUM CHLORIDE 0.9% IV SCH ×3 (09:58→21:58)
[2022-02-07] MEDS: Cymbalta 30 MG Capsule PO SCH ×2 (09:59→21:56)
[2022-02-07] MEDS: Glucophage 500 MG PO SCH ×2 (09:59→17:06)
[2022-02-07] MEDS: THERAGRAN MULTIVITAMIN PO SCH (09:59)
[2022-02-07] MEDS: Acidophilus TABLET PO SCH (10:00)
[2022-02-07] MEDS ORDERED: NON-FORMULARY ITEM (Multivitamin [Multi-Vitamin Daily] 1 EACH Tablet) PO SCH (10:00)
[2022-02-07] MEDS ORDERED: NON-FORMULARY ITEM (L.Acidoph,Paracasei, B.Lactis [Probiotic] 1 EACH Capsule) PO SCH (10:00)
[2022-02-07] MEDS ORDERED: NON-FORMULARY ITEM (Aspirin [Aspirin] 81 MG Tablet) PO SCH (10:00)
[2022-02-07] MEDS: ECOTRIN 81 MG PO SCH (10:00)
[2022-02-07] MEDS: MSIR 15 MG PO PRN ×2 (11:48→17:58)
[2022-02-07] MEDS ORDERED: Ms Contin 15 MG PO SCH (12:00)
[2022-02-07] MEDS: HUMALOG SQ PRN ×2 (17:06→21:57)
[2022-02-07] MEDS: Zocor 10MG PO SCH (21:56)
[2022-02-07] MEDS: Vasotec 10 MG PO SCH (21:57)
[2022-02-07] MEDS: Protonix 40MG Tablet PO SCH (21:57)
[2022-02-07] MEDS: DILAUDID 1 MG/1ML PCA IV PRN (23:09)
[2022-02-08] MEDS: Sodium Chloride 0.9% 1000 ML 1,000 ML IV SCH ×2 (00:04→13:59)
[2022-02-08] MEDS: MSIR 15 MG PO PRN ×3 (00:04→14:03)
[2022-02-08] MEDS: solu-CORTEF 100MG IV SCH ×3 (02:22→17:40)
[2022-02-08 05:54] LABS: Absolute Neutrophil Ct (ANC) 7.89 (1.4-6.9); Basophil (Absolute #) 0.04 (0-0.4); Eosinophil % 0.7 % (0.00-5.0); Eosinophil (Absolute #) 0.07 (0-0.5); Hematocrit 46.5 % (42-50); Hemoglobin 14.8 gm/dl (12.5-18.0); Lymphocyte (Absolute #) 1.97 (1.0-4.6); Lymphocytes % 18.8 % (24.0-44.0); Mean Cell Volume 90.6 fl (78-100); Mean Corpuscular Hemoglobin 28.8 pg (26-32); Mean Corpuscular Hgb Concent. 31.8 g/dl (32-36); Mean Platelet Volume 10.3 fl (7.5-11.0); Monocyte (Absolute #) 0.52 (0.0-1.3); Neutrophil % 75.1 % (36.0-66.0); Platelet Count 390 K/mm3 (150-450); Red Blood Count 5.13 M/mm3 (4.1-5.6); Red Cell Distribution Width 14.6 % (11.5-14.0); White Blood Count 10.5 K/mm3 (4.0-10.5)
[2022-02-08] MEDS: SODIUM CHLORIDE 0.9% IV SCH ×3 (06:00→22:12)
[2022-02-08] MEDS: ZOVIRAX IV SCH ×3 (06:00→22:12)
[2022-02-08] MEDS: DILAUDID 1 MG/1ML PCA IV PRN (06:09)
[2022-02-08 06:16] LABS: ANION GAP 13.5 MEQ/L (5-15); BLOOD UREA NITROGEN 11 mg/dL (9-20); CHLORIDE 102 mmol/L (98-107); Calcium 8.6 mg/dL (8.4-10.2); Carbon Dioxide 25 mmol/L (22-30); Creatinine 1 0.73 mg/dL (0.66-1.25); EST GLOMERULAR FILTRATION RATE > 60.0 ML/MIN; Glucose 139 mg/dL (74-106); Potassium 4.1 mmol/L (3.5-5.1); SODIUM 136 mmol/L (137-145)
[2022-02-08] MEDS: Glucophage 500 MG PO SCH ×2 (08:15→17:40)
[2022-02-08] MEDS: HUMALOG SQ PRN ×2 (08:15→17:40)
[2022-02-08] MEDS: THERAGRAN MULTIVITAMIN PO SCH (10:46)
[2022-02-08] MEDS: Acidophilus TABLET PO SCH (10:46)
[2022-02-08] MEDS: ECOTRIN 81 MG PO SCH (10:46)
[2022-02-08] MEDS: Cymbalta 30 MG Capsule PO SCH ×2 (10:46→22:09)
[2022-02-08] MEDS: MINERAL OIL PO SCH ×3 (10:47→22:12)
[2022-02-08] MEDS: MSIR 15 MG PO SCH (18:48)
[2022-02-08] MEDS: Vasotec 10 MG PO SCH (22:09)
[2022-02-08] MEDS: Zocor 10MG PO SCH (22:10)
[2022-02-08] MEDS: Protonix 40MG Tablet PO SCH (22:10)
[2022-02-09] MEDS: MSIR 15 MG PO SCH ×5 (00:02→23:59)
[2022-02-09] MEDS: solu-CORTEF 100MG IV SCH ×3 (02:43→17:48)
[2022-02-09] MEDS: ZOVIRAX IV SCH ×4 (05:49→21:35)
[2022-02-09] MEDS: SODIUM CHLORIDE 0.9% IV SCH ×2 (05:49→16:00)
[2022-02-09 05:55] LABS: Hematocrit 44.4 % (42-50); Hemoglobin 14.3 gm/dl (12.5-18.0); Mean Corpuscular Hemoglobin 29.3 pg (26-32); Mean Corpuscular Hgb Concent. 32.2 g/dl (32-36); Mean Platelet Volume 10.5 fl (7.5-11.0); Platelet Count 394 K/mm3 (150-450); Red Blood Count 4.88 M/mm3 (4.1-5.6); Red Cell Distribution Width 14.8 % (11.5-14.0); White Blood Count 10.8 K/mm3 (4.0-10.5)
[2022-02-09] MEDS: Sodium Chloride 0.9% 1000 ML 1,000 ML IV SCH ×3 (05:56→21:33)
[2022-02-09] MEDS: DILAUDID 1 MG/1ML PCA IV PRN ×2 (05:58→10:35)
[2022-02-09 06:13] LABS: ALBUMIN 3.8 g/dL (3.5-5.0); ALKALINE PHOSPHATASE 81 U/L (38-126); ANION GAP 13.3 MEQ/L (5-15); BLOOD UREA NITROGEN 10 mg/dL (9-20); CHLORIDE 104 mmol/L (98-107); Calcium 8.3 mg/dL (8.4-10.2); Carbon Dioxide 26 mmol/L (22-30); Creatinine 1 0.73 mg/dL (0.66-1.25); EST GLOMERULAR FILTRATION RATE > 60.0 ML/MIN; Glucose 140 mg/dL (74-106); Potassium 3.9 mmol/L (3.5-5.1); SGOT/AST 24 U/L (17-59); SGPT/ALT 23 U/L (0-50); SODIUM 139 mmol/L (137-145); Total Protein 6.5 g/dL (6.3-8.2)
[2022-02-09] MEDS: Glucophage 500 MG PO SCH ×2 (07:48→17:48)
[2022-02-09] MEDS: ECOTRIN 81 MG PO SCH (09:30)
[2022-02-09] MEDS: THERAGRAN MULTIVITAMIN PO SCH (09:30)
[2022-02-09] MEDS: Cymbalta 30 MG Capsule PO SCH ×2 (09:30→21:36)
[2022-02-09] MEDS: Acidophilus TABLET PO SCH (09:30)
[2022-02-09] MEDS: MINERAL OIL PO SCH ×3 (09:31→22:46)
[2022-02-09] MEDS: SODIUM CHLORIDE MINI IV SCH ×2 (14:59→21:35)
[2022-02-09] MEDS: HUMALOG SQ PRN ×2 (17:48→22:51)
[2022-02-09] MEDS: Protonix 40MG Tablet PO SCH (21:37)
[2022-02-09] MEDS: Vasotec 10 MG PO SCH (21:37)
[2022-02-09] MEDS: Zocor 10MG PO SCH (21:37)
[2022-02-10] MEDS: solu-CORTEF 100MG IV SCH ×3 (01:51→17:36)
[2022-02-10 05:09] LABS: ANION GAP 11.4 MEQ/L (5-15); BLOOD UREA NITROGEN 11 mg/dL (9-20); CHLORIDE 101 mmol/L (98-107); Calcium 8.1 mg/dL (8.4-10.2); Carbon Dioxide 28 mmol/L (22-30); Creatinine 1 0.71 mg/dL (0.66-1.25); EST GLOMERULAR FILTRATION RATE > 60.0 ML/MIN; Glucose 190 mg/dL (74-106); Potassium 3.6 mmol/L (3.5-5.1); SODIUM 137 mmol/L (137-145)
[2022-02-10 05:10] LABS: Hematocrit 43.8 % (42-50); Hemoglobin 14.1 gm/dl (12.5-18.0); Mean Cell Volume 91.3 fl (78-100); Mean Corpuscular Hemoglobin 29.4 pg (26-32); Mean Corpuscular Hgb Concent. 32.2 g/dl (32-36); Mean Platelet Volume 10.8 fl (7.5-11.0); Platelet Count 383 K/mm3 (150-450); Red Cell Distribution Width 14.7 % (11.5-14.0)
[2022-02-10] MEDS: SODIUM CHLORIDE MINI IV SCH ×3 (05:44→21:07)
[2022-02-10] MEDS: MSIR 15 MG PO SCH ×4 (05:44→23:52)
[2022-02-10] MEDS: ZOVIRAX IV SCH ×3 (05:44→21:07)
[2022-02-10] MEDS: HUMALOG SQ PRN ×2 (07:54→17:36)
[2022-02-10] MEDS: Glucophage 500 MG PO SCH ×2 (07:54→17:36)
--- NOTE | 2022-02-10 08:06 | PCM.NOTE ---
Date and Time: 02/10/22804 Subjective Assessment: patient was improved yesterday but this morning pain in his head and neck are significantly worse, he feels like he has backslid with his pain control today. tolerating po Objective Exam General Appearance: no apparent distress, obese Neurologic Exam: alert, oriented x 3 Respiratory Exam: normal breath sounds Cardiovascular Exam: regular rate/rhythm, normal heart sounds Gastrointestinal/Abdomen Exam: soft, No tenderness, No mass Extremity Exam: normal inspection, normal range of motion OBJECTIVE DATA Vital Signs: Vital Signs - 24 hr Temp Pulse Resp BP Pulse Ox 02/10/22 06:00 95 02/10/22 05:58 95 02/10/22 05:06 96.6 F 70 16 119/64 95 02/10/22 04:00 96.9 F 76 16 132/83 96 02/10/22 02:35 95 02/10/22 02:32 95 02/10/22 02:00 95 02/10/22 01:58 96 02/09/22 23:32 96.9 F 76 16 132/83 96 02/09/22 22:35 96 02/09/22 22:32 96 02/09/22 22:00 97 02/09/22 21:58 97 02/09/22 19:53 98 02/09/22 19:41 97 F 76 18 132/78 96 02/09/22 18:00 96 02/09/22 16:00 97.1 F 76 18 127/80 99 02/09/22 11:55 97.5 F 75 20 128/74 95 Pain Assessment - Last Documented Pain Intensity 7 Pain Scale Used 0-10 Pain Scale Intake and Output: Intake & Output 02/07/22 02/08/22 02/09/22 02/10/22 11:59 11:59 11:59 11:59 Intake Total 2712 4299 4923 3271 Output Total 3550 4100 2275 3900 Balance -454 193 9154 -629 Weight 108.1 kg 108.1 kg Lab Results: Lab Results-Last 24 Hours 02/09/22 02/09/22 02/09/22 Range/Units 11:14 16:17 21:41 WBC (4.0-10.5) K/mm3 RBC (4.1-5.6) M/mm3 Hgb (12.5-18.0) gm/dl Hct (42-50) % MCV (78-100) fl MCH (26-32) pg MCHC (32-36) g/dl RDW (11.5-14.0) % Plt Count (150-450) K/mm3 MPV (7.5-11.0) fl Sodium (137-145) mmol/L Potassium (3.5-5.1) mmol/L Chloride (98-107) mmol/L Carbon Dioxide (22-30) mmol/L Anion Gap (5-15) MEQ/L BUN (9-20) mg/dL Creatinine (0.66-1.25) mg/dL Estimated GFR ML/MIN Glucose (74-106) mg/dL POC Glucometer 115 H 154 H 224 H (74 to 106) mg/dL Calcium (8.4-10.2) mg/dL 02/10/22 02/10/22 02/10/22 Range/Units 04:12 04:12 07:31 WBC 12.0 H (4.0-10.5) K/mm3 RBC 4.80 (4.1-5.6) M/mm3 Hgb 14.1 (12.5-18.0) gm/dl Hct 43.8 (42-50) % MCV 91.3 (78-100) fl MCH 29.4 (26-32) pg MCHC 32.2 (32-36) g/dl RDW 14.7 H (11.5-14.0) % Plt Count 383 (150-450) K/mm3 MPV 10.8 (7.5-11.0) fl Sodium 137 (137-145) mmol/L Potassium 3.6 (3.5-5.1) mmol/L Chloride 101 (98-107) mmol/L Carbon Dioxide 28 (22-30) mmol/L Anion Gap 11.4 (5-15) MEQ/L BUN 11 (9-20) mg/dL Creatinine 0.71 (0.66-1.25) mg/dL Estimated GFR > 60.0 ML/MIN Glucose 190 H (74-106) mg/dL POC Glucometer 151 H (74 to 106) mg/dL Calcium 8.1 L (8.4-10.2) mg/dL Assessment/Plan (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 Onset Date: ~11/01/18 Assessment & Plan: continue current management with IV acyclovir, 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 likely home later today if clinically improved or tomorrow Code(s): G03.2 - BENIGN RECURRENT MENINGITIS [MOLLARET] (2) Chronic pain syndrome Current Visit: No Status: Acute Code(s): G89.4 - CHRONIC PAIN SYNDROME (3) Diabetes mellitus Current Visit: No Status: Chronic Qualifiers: Code(s): E11.9 - TYPE 2 DIABETES MELLITUS WITHOUT COMPLICATIONS (4) Hypertension Current Visit: No Status: Chronic Onset Date: ~11/01/18 Code(s): I10 - ESSENTIAL (PRIMARY) HYPERTENSION
[2022-02-10] MEDS: Cymbalta 30 MG Capsule PO SCH ×2 (09:35→21:07)
[2022-02-10] MEDS: ECOTRIN 81 MG PO SCH (09:35)
[2022-02-10] MEDS: THERAGRAN MULTIVITAMIN PO SCH (09:35)
[2022-02-10] MEDS: Acidophilus TABLET PO SCH (09:35)
[2022-02-10] MEDS: MINERAL OIL PO SCH ×3 (09:35→21:06)
[2022-02-10] MEDS: Sodium Chloride 0.9% 1000 ML 1,000 ML IV SCH (14:14)
[2022-02-10] MEDS: DILAUDID 1 MG/1ML PCA IV PRN (20:46)
[2022-02-10] MEDS: Protonix 40MG Tablet PO SCH (21:07)
[2022-02-10] MEDS: Vasotec 10 MG PO SCH (21:07)
[2022-02-10] MEDS: Zocor 10MG PO SCH (21:08)
[2022-02-11] MEDS: solu-CORTEF 100MG IV SCH ×2 (02:12→09:04)
[2022-02-11] MEDS: Sodium Chloride 0.9% 1000 ML 1,000 ML IV SCH (04:26)
[2022-02-11 05:31] LABS: Absolute Neutrophil Ct (ANC) 8.68 (1.4-6.9); Basophil (Absolute #) 0.04 (0-0.4); Eosinophil % 0.8 % (0.00-5.0); Hematocrit 43.1 % (42-50); Lymphocyte (Absolute #) 2.92 (1.0-4.6); Lymphocytes % 23.1 % (24.0-44.0); Mean Cell Volume 90.2 fl (78-100); Mean Corpuscular Hemoglobin 29.3 pg (26-32); Mean Corpuscular Hgb Concent. 32.5 g/dl (32-36); Monocyte (Absolute #) 0.88 (0.0-1.3); Neutrophil % 68.8 % (36.0-66.0); Platelet Count 375 K/mm3 (150-450); Red Blood Count 4.78 M/mm3 (4.1-5.6); Red Cell Distribution Width 14.6 % (11.5-14.0); White Blood Count 12.6 K/mm3 (4.0-10.5)
[2022-02-11 05:41] LABS: ALBUMIN 3.7 g/dL (3.5-5.0); ALKALINE PHOSPHATASE 73 U/L (38-126); ANION GAP 12.5 MEQ/L (5-15); BLOOD UREA NITROGEN 11 mg/dL (9-20); CHLORIDE 100 mmol/L (98-107); Calcium 8.2 mg/dL (8.4-10.2); Carbon Dioxide 26 mmol/L (22-30); Creatinine 1 0.61 mg/dL (0.66-1.25); EST GLOMERULAR FILTRATION RATE > 60.0 ML/MIN; Glucose 137 mg/dL (74-106); SGOT/AST 26 U/L (17-59); SGPT/ALT 24 U/L (0-50); SODIUM 135 mmol/L (137-145); Total Protein 6.3 g/dL (6.3-8.2)
[2022-02-11] MEDS: MSIR 15 MG PO SCH (06:01)
[2022-02-11] MEDS: SODIUM CHLORIDE MINI IV SCH (06:01)
[2022-02-11] MEDS: ZOVIRAX IV SCH (06:01)
[2022-02-11 07:57] VITALS: O2SAT 95
--- NOTE | 2022-02-11 08:48 | PCM.DS ---
Discharge Summary Date of Admission: 02/07/22 08:18 Admitting Physician: ANN ALEXIS Primary Care Provider: ANN ALEXIS Allergies Allergies pregabalin [From Lyrica] Adverse Reaction (Severe, Verified 02/06/22 15:41) Hives SOB hives azithromycin [From Zmax] Adverse Reaction (Mild, Verified 02/06/22 15:41) vomiting Hospital Summary - Hospital Course Hospital Course: patient admitted with typical flare of recurrent aseptic meningitis, doing much better and pain is controlled, tolerating po and no complaints today - Vitals & Intake/Output Vital Signs: Vital Signs Temperature 97.7 F 02/11/22 03:59 Pulse Rate 55 L 02/11/22 03:59 Respiratory Rate 16 02/11/22 03:59 Blood Pressure 133/78 02/11/22 03:59 O2 Sat by Pulse Oximetry 95 02/11/22 07:56 Intake & Output: Intake & Output 02/08/22 02/09/22 02/10/22 02/11/22 11:59 11:59 11:59 11:59 Intake Total 4299 4923 3271 2892 Output Total 4100 2275 3900 2800 Balance 199 2648 -629 92 Weight 108.1 kg - Lab Result Diagrams: 02/11/22 04:50 02/11/22 04:50 Lab Results-Last 24 Hrs: Lab Results-Last 24 Hours 02/10/22 02/10/22 02/10/22 Range/Units 11:48 16:32 21:28 WBC (4.0-10.5) K/mm3 RBC (4.1-5.6) M/mm3 Hgb (12.5-18.0) gm/dl Hct (42-50) % MCV (78-100) fl MCH (26-32) pg MCHC (32-36) g/dl RDW (11.5-14.0) % Plt Count (150-450) K/mm3 MPV (7.5-11.0) fl Gran % (36.0-66.0) % Eos # (Auto) (0-0.5) Absolute Lymphs (auto) (1.0-4.6) Absolute Monos (auto) (0.0-1.3) Lymphocytes % (24.0-44.0) % Monocytes % (0.0-12.0) % Eosinophils % (0.00-5.0) % Basophils % (0.0-0.4) % Absolute Granulocytes (1.4-6.9) Basophils # (0-0.4) Sodium (137-145) mmol/L Potassium (3.5-5.1) mmol/L Chloride (98-107) mmol/L Carbon Dioxide (22-30) mmol/L Anion Gap (5-15) MEQ/L BUN (9-20) mg/dL Creatinine (0.66-1.25) mg/dL Estimated GFR ML/MIN Glucose (74-106) mg/dL POC Glucometer 101 218 H 128 H (74 to 106) mg/dL Calcium (8.4-10.2) mg/dL Magnesium (1.6-2.3) mg/dL Total Bilirubin (0.2-1.3) mg/dL AST (17-59) U/L ALT (0-50) U/L Alkaline Phosphatase (38-126) U/L Serum Total Protein (6.3-8.2) g/dL Albumin (3.5-5.0) g/dL 02/11/22 02/11/22 02/11/22 Range/Units 04:50 04:50 07:12 WBC 12.6 H (4.0-10.5) K/mm3 RBC 4.78 (4.1-5.6) M/mm3 Hgb 14.0 (12.5-18.0) gm/dl Hct 43.1 (42-50) % MCV 90.2 (78-100) fl MCH 29.3 (26-32) pg MCHC 32.5 (32-36) g/dl RDW 14.6 H (11.5-14.0) % Plt Count 375 (150-450) K/mm3 MPV 11.0 (7.5-11.0) fl Gran % 68.8 H (36.0-66.0) % Eos # (Auto) 0.10 (0-0.5) Absolute Lymphs (auto) 2.92 (1.0-4.6) Absolute Monos (auto) 0.88 (0.0-1.3) Lymphocytes % 23.1 L (24.0-44.0) % Monocytes % 7.0 (0.0-12.0) % Eosinophils % 0.8 (0.00-5.0) % Basophils % 0.3 (0.0-0.4) % Absolute Granulocytes 8.68 H (1.4-6.9) Basophils # 0.04 (0-0.4) Sodium 135 L (137-145) mmol/L Potassium 4.0 (3.5-5.1) mmol/L Chloride 100 (98-107) mmol/L Carbon Dioxide 26 (22-30) mmol/L Anion Gap 12.5 (5-15) MEQ/L BUN 11 (9-20) mg/dL Creatinine 0.61 L (0.66-1.25) mg/dL Estimated GFR > 60.0 ML/MIN Glucose 137 H (74-106) mg/dL POC Glucometer 120 H (74 to 106) mg/dL Calcium 8.2 L (8.4-10.2) mg/dL Magnesium 2.0 (1.6-2.3) mg/dL Total Bilirubin 0.40 (0.2-1.3) mg/dL AST 26 (17-59) U/L ALT 24 (0-50) U/L Alkaline Phosphatase 73 (38-126) U/L Serum Total Protein 6.3 (6.3-8.2) g/dL Albumin 3.7 (3.5-5.0) g/dL Micro Results-Entire Visit: Accuchecks Date 02/11/22 Date 02/10/22 Time 07:10 Time 21:40 Discharge Exam General Appearance: no apparent distress, obese Neurologic Exam: alert, oriented x 3 Neck Exam: supple, No meningismus Respiratory Exam: normal breath sounds, lungs clear, No respiratory distress Cardiovascular Exam: regular rate/rhythm, normal heart sounds Gastrointestinal/Abdomen Exam: soft, No tenderness, No mass Extremity Exam: normal inspection, normal range of motion Skin Exam: normal color, warm, dry Final Diagnosis/Problem List - Final Discharge Diagnosis/Problem (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 Onset Date: ~11/01/18 Code(s): G03.2 - BENIGN RECURRENT MENINGITIS [MOLLARET] (2) Chronic pain syndrome Current Visit: No Status: Acute Code(s): G89.4 - CHRONIC PAIN SYNDROME (3) Diabetes mellitus Current Visit: No Status: Chronic Code(s): E11.9 - TYPE 2 DIABETES MELLITUS WITHOUT COMPLICATIONS (4) Hypertension Current Visit: No Status: Chronic Onset Date: ~11/01/18 Code(s): I10 - ESSENTIAL (PRIMARY) HYPERTENSION - Discharge Disposition: Home, Self-Care Condition: Stable Prescriptions: New Acyclovir 800 mg [Acyclovir] 800 mg PO TID #21 tablet Prednisone 20 mg [Deltasone 20 mg] 20 mg PO UD #18 tablet Continue Enalapril Maleate 10 mg [Vasotec 10 MG] 20 mg PO HS Multivitamin [Multi-Vitamin Daily] 1 each PO DAILY Aspirin 81 mg PO DAILY Mineral Oil 30 ml PO TID Testosterone Cypionate 1.25 ml IM UD Duloxetine HCl [Cymbalta] 60 mg PO BID Prednisone 10 mg [Deltasone 10 mg] 15 mg PO DAILY PANTOPRAZOLE 40 mg Tablet [Protonix 40MG Tablet] 40 mg PO QPM Morphine Sulfate/Pf [Morphine 10 mg/10 ml Vial] 15.6 mg IJ DAILY L.acidoph,Paracasei, B.lactis [Probiotic] 2 each PO DAILY Metformin HCl 500 mg [Glucophage 500 MG] 1,000 mg PO BIDWM Atorvastatin Calcium [Lipitor] 10 mg PO HS Morphine Sulfate Ir 15 mg [Msir 15 mg] 15 mg PO Q6H PRN PRN PRN Reason: Pain Follow up with: ANN ALEXIS MD [Primary Care Provider] -
[2022-02-11] MEDS: Acidophilus TABLET PO SCH (09:04)
[2022-02-11] MEDS: ECOTRIN 81 MG PO SCH (09:04)
[2022-02-11] MEDS: Cymbalta 30 MG Capsule PO SCH (09:04)
[2022-02-11] MEDS: Glucophage 500 MG PO SCH (09:04)
[2022-02-11] MEDS: MINERAL OIL PO SCH (09:05)
[2022-02-11] MEDS: THERAGRAN MULTIVITAMIN PO SCH (09:05)
[2022-02-11] MEDS: DILAUDID 1 MG/1ML PCA IV PRN (09:23)
[2022-02-11 09:31] VITALS: BP 130/74; PULSE 64
== END 2022-02-11 09:21 | disposition home or self-care (01) | DRG 76 ==
LOC: ED 15:33 → MED SURG 18:18 → OBSVTOIN 02-07 08:18
PROVIDERS: ADMIT Family Medicine; ATTEND Family Medicine
DX: G03.2 Benign recurrent meningitis [Mollaret] (principal); G89.4 Chronic pain syndrome; E11.9 Type 2 diabetes mellitus without complications; I10 Essential (primary) hypertension; Z79.899 Other long term (current) drug therapy; R51.9 Headache, unspecified; M54.2 Cervicalgia; M54.9 Dorsalgia, unspecified; Z20.828 Contact with and (suspected) exposure to other viral communicable diseases
CPT/HCPCS: 0241U; 36415; 80048; 80053; 82947; 83735; 85025; 85027; 94762; 96374; 96375; 99285; G0378; J0133; J1170; J1720; J1817; J2405; A9270-GY

== ENCOUNTER 2022-03-06 10:00 | Inpatient (IN) | payer MEDICARE, BC ==
[2022-03-06] MEDS ORDERED: Zovirax INJ*** 500 MG in D5w 100ML Mini Bag 100 ML 100 ML IV ONE (10:33)
[2022-03-06] MEDS ORDERED: solu-MEDROL 125 MG, Sterile H2O 10 ml 2 ML IV ONE ×2 (10:33)
[2022-03-06] MEDS ORDERED: VANCOMYCIN 1 GRAM/200 ML BAG 1 GM/200 ML PIGGYBACK IV ONE (10:34)
[2022-03-06] MEDS ORDERED: MORPHINE SULFATE 4 MG INJ IV ONE (10:35)
[2022-03-06] MEDS ORDERED: Zofran 4 MG/2 ML VIAL IV ONE (10:36)
--- NOTE | 2022-03-06 10:42 | ERPHSYRPT ---
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 Patient required chronic meningitis when he was in the . Patient states he has chronic intermittent flareups that require ho spitalization with treatment entailing acyclovir and occasionally vancomycin/ceftriaxone. Patient also requesting a steroid prior to administration of the acyclovir/antibiotics. Symptoms have been ongoing for the past 2 days. Symptoms are progressive. Patient complaining of back pain and neck pain. No syncope. Mild headache. No nausea or vomiting. No fever. No rash. Symptoms are moderate in intensity. Patient has been experiencing this chronic intermittent meningitis for several years and states his current symptoms are typical. He voices no other complaints or concerns at this time. Timing/Duration: day(s) (2 days) Severity: moderate Modifying Factors: Improves With: other (When patient experiences a flareup of his chronic meningitis patient) Associated Symptoms: No nausea, No vomiting, No heartburn, No chest pain, No headaches, No malaise, No syncope, No seizure Allergies/Adverse Reactions: pregabalin [From Lyrica] Adverse Reaction (Severe, Verified 03/06/22 10:31) Hives SOB hives azithromycin [From Zmax] Adverse Reaction (Mild, Verified 03/06/22 10:31) vomiting Home Medications: Aspirin 81 mg PO DAILY 01/24/14 [History] Enalapril Maleate 10 mg [Vasotec 10 MG] 20 mg PO HS 01/24/14 [History] Mineral Oil 30 ml PO TID 01/24/14 [History] Multivitamin [Multi-Vitamin Daily] 1 each PO DAILY 01/24/14 [History] Testosterone Cypionate 1.25 ml IM UD 10/09/14 [History] Duloxetine HCl [Cymbalta] 60 mg PO BID 04/23/15 [History] Prednisone 10 mg [Deltasone 10 mg] 15 mg PO DAILY 04/23/15 [History] Morphine Sulfate/Pf [Morphine 10 mg/10 ml Vial] 15.6 mg IJ DAILY 07/29/19 [History] L.acidoph,Paracasei, B.lactis [Probiotic] 2 each PO DAILY 10/23/19 [History] Metformin HCl 500 mg [Glucophage 500 MG] 1,000 mg PO BIDWM 04/20/20 [History] Atorvastatin Calcium [Lipitor] 10 mg PO HS 01/06/22 [History] Morphine Sulfate Ir 15 mg [Msir 15 mg] 15 mg PO Q6H PRN PRN 02/07/22 [History] Hx Tetanus, Diphtheria Vaccination/Date Given: Yes Hx Influenza Vaccination/Date Given: No Hx Pneumococcal Vaccination/Date Given: Yes Travel Risk - Vaccine Status Have you recieved a Covid-19 vaccination: Yes Access Clinician: [employer] - Vaccination Dates Dates if Unknown: ? - Review of Systems Constitutional: No Symptoms, No Fever, No Chills Eyes: No Symptoms Ears, Nose, & Throat: No Symptoms Respiratory: No Symptoms, No Cough, No Dyspnea Cardiac: No Symptoms, No Chest Pain, No Edema, No Syncope Abdominal/Gastrointestinal: No Symptoms, No Abdominal Pain, No Nausea, No Vomiting, No Diarrhea Genitourinary Symptoms: No Symptoms, No Dysuria Musculoskeletal: No Symptoms, No Back Pain, No Neck Pain Skin: No Symptoms, No Rash Neurological: No Symptoms, No Dizziness, No Focal Weakness, No Sensory Changes Psychological: No Symptoms Endocrine: No Symptoms Hematologic/Lymphatic: No Symptoms Immunological/Allergic: No Symptoms All Other Systems: Reviewed and Negative - Past Medical History Pertinent Past Medical History: Yes Neurological History: Other ENT History: No Pertinent History Cardiac History: Hypertension Respiratory History: No Pertinent History Endocrine Medical History: No Pertinent History Musculoskeletal History: No Pertinent History GI Medical History: Other History: No Pertinent History Psycho-Social History: No Pertinent History Male Reproductive Disorders: No Pertinent History Other Medical History: Mollaret's, spleen removed - Past Surgical History Past Surgical History: Yes Neuro Surgical History: No Pertinent History Cardiac: No Pertinent History Respiratory: No Pertinent History Gastrointestinal: Other Genitourinary: No Pertinent History Musculoskeletal: No Pertinent History Male Surgical History: Vasectomy Other Surgical History: spleen removed, apendectomy, 2 nasal surgeries - Social History Smoking Status: Never smoker Exposure to second hand smoke: No Alcohol Use: None Drug Use: none Patient Lives Alone: Yes Significant Family History: no pertinent family hx - Nursing Vital Signs Nursing Vital Signs: Initial Vital Signs Temperature 97.2 F 03/06/22 10:34 Pulse Rate 92 H 03/06/22 10:34 Respiratory Rate 17 03/06/22 10:34 Blood Pressure 125/83 03/06/22 10:34 O2 Sat by Pulse Oximetry 98 03/06/22 10:34 Pain Scale Pain Intensity [Neck] 10 Pain Intensity 10 - Physical Exam General Appearance: no apparent distress, alert Eye Exam: PERRL/EOMI, eyes nml inspection Ears, Nose, Throat Exam: normal ENT inspection, TMs normal, pharynx normal, moist mucous membranes Neck Exam: normal inspection, non-tender, supple, full range of motion Respiratory Exam: normal breath sounds, lungs clear, airway intact, No chest tenderness, No respiratory distress Cardiovascular Exam: regular rate/rhythm, normal heart sounds, normal peripheral pulses Gastrointestinal/Abdomen Exam: soft, normal bowel sounds, No tenderness, No mass Back Exam: normal inspection, normal range of motion, No CVA tenderness, No vertebral tenderness Extremity Exam: normal inspection, normal range of motion, pelvis stable Neurologic Exam: alert, oriented x 3, cooperative, normal mood/affect, nml cerebellar function, nml station & gait, sensation nml, No motor deficits Skin Exam: normal color, warm, dry, No rash Lymphatic Exam: No adenopathy SpO2 Interpretation: normal SpO2: 98 O2 Delivery: Room Air - Course Nursing assessment & vital signs reviewed: Yes Ordered Tests: Active Orders 24 hr Category Date Time Status IV Insertion STAT Care 03/06/22 10:32 Active Pulse Oximetry (ED) STAT Care 03/06/22 10:32 Active BLOOD CULTURE Stat Lab 03/06/22 10:55 Received CBC W DIFF Stat Lab 03/06/22 10:45 Completed CMP Stat Lab 03/06/22 10:45 Received Lactic Acid Stat Lab 03/06/22 10:32 Completed Manual Differential NC Stat Lab 03/06/22 10:45 Completed UA W/RFX CULTURE Stat Lab 03/06/22 10:34 Completed Transfer Order Routine Transfer 03/06/22 Ordered Medication Summary Generic Name Dose Route Start Last Admin Trade Name Freq PRN Reason Stop Dose Admin Hydromorphone HCl 30 mg 03/06/22 10:59 03/06/22 11:19 Hydromorphone Hcl 30 Mg/30 Ml Nurse Advocate Vial IV 03/11/22 10:58 30 mg UD PRN Administration PAIN Sodium Chloride 1,000 mls @ 100 mls/hr 03/06/22 10:45 03/06/22 11:41 Sodium Chloride 0.9% 1000 Ml IV 04/05/22 10:44 100 mls/hr .Q10H GLENNA Administration Discontinued Medications Generic Name Dose Route Start Last Admin Trade Name Freq PRN Reason Stop Dose Admin Acyclovir Sodium Confirm 03/06/22 10:57 Acyclovir Sodium 500 Mg/Vial Vial Administered 03/06/22 10:58 Dose 500 mg IV .STK-MED ONE Methylprednisolone Sodium 0 mg 03/06/22 10:33 03/06/22 11:54 Succinate 125 mg/ Sterile IV 03/06/22 10:34 125 mg Water 2 ml STAT ONE Administration Acyclovir Sodium 500 mg/ 100 mls @ 100 mls/hr 03/06/22 10:33 03/06/22 11:37 Dextrose IV 03/06/22 11:32 100 mls/hr STAT ONE Administration Vancomycin HCl 1 gm in 200 mls @ 125 mls/hr 03/06/22 10:34 Vancomycin 1 Gram/200 Ml Bag IV 03/06/22 12:09 STAT ONE Ceftriaxone Sodium/Dextrose 1 g in 50 mls @ 100 mls/hr 03/06/22 10:35 03/06/22 11:39 Rocephin 1 Gm-D5w 50 Ml Bag IV 03/06/22 11:04 1 mls/hr STAT STA 1 mls/hr Administration Sodium Chloride Confirm 03/06/22 10:58 Sodium Chloride 0.9% 100 Ml Bag Administered 03/06/22 10:59 Dose 100 mls @ ud .ROUTE .STK-MED ONE Ceftriaxone Sodium/Dextrose Confirm 03/06/22 10:58 Rocephin 1 Gm-D5w 50 Ml Bag Administered 03/06/22 10:59 Dose 1 g in 50 mls @ ud IV .STK-MED ONE Methylprednisolone Sodium Succinate Confirm 03/06/22 10:58 Methylprednis Sod Succ 125 Mg/2 Ml Vial Administered 03/06/22 10:59 Dose 125 mg .ROUTE .STK-MED ONE Morphine Sulfate 4 mg 03/06/22 10:35 Morphine Sulfate 4 Mg/Ml Injection IV 03/06/22 10:36 STAT ONE Ondansetron HCl 4 mg 03/06/22 10:36 03/06/22 11:38 Ondansetron Hcl 4 Mg/2 Ml Vial IV 03/06/22 10:37 4 mg STAT ONE Administration Ondansetron HCl Confirm 03/06/22 10:57 Ondansetron Hcl 4 Mg/2 Ml Vial Administered 03/06/22 10:58 Dose 4 mg .ROUTE .K-MED ONE Lab/Rad Data: Laboratory Result Diagrams 03/06/22 10:45 03/06/22 10:45 Laboratory Results 03/06/22 03/06/22 03/06/22 Range/Units Unknown 10:45 10:45 WBC 10.2 (4.0-10.5) K/mm3 RBC 5.57 (4.1-5.6) M/mm3 Hgb 16.0 (12.5-18.0) gm/dl Hct 49.4 (42-50) % MCV 88.7 (78-100) fl MCH 28.7 (26-32) pg MCHC 32.4 (32-36) g/dl RDW 15.8 H (11.5-14.0) % Plt Count 418 (150-450) K/mm3 MPV 10.3 (7.5-11.0) fl Segmented Neutrophils 53 (36.-66.) % Lymphocytes (Manual) 31 (24-44) % Monocytes (Manual) 8 (0.0-12.0) % Eosinophils (Manual) 8 H (0.00-3.0) % Platelet Estimate NORMAL (NORMAL) RBC Morphology NORMAL Sodium Direct 137 L (138-146) mmol/L Potassium 4.1 (3.5-4.9) mmol/L Chloride 97 L (98-109) mmol/L Carbon Dioxide 28 (24-29) mmol/L Venous BUN 15 (8-26) mg/dL Creatinine 0.9 (0.6-1.3) mg/dL Glucose 114 H (70-105) mg/dL Lactic Acid (0.4-2.0) Ionized Calcium 1.17 (1.12-1.32) mmol/L Urinalys Dipstick Clnc Urine Color (YELLOW) Urine Appearance (CLEAR) Urine pH (5-6) Ur Specific [place] (1.005-1.025) POC Urine Protein Conf (Negative) Urine Ketones (NEGATIVE) Urine Nitrite (NEGATIVE) Urine Bilirubin (NEGATIVE) Urine Urobilinogen (0-1) mg/dL Urine Leukocytes (NEGATIVE) Urine WBC (Auto) (0-5) /HPF Urine RBC (Auto) (0-2) /HPF U Epithel Cells (Auto) (FEW) /HPF Urine Bacteria (Auto) (NEGATIVE) /HPF Urine RBC (0-5) Chase/ul Urine Mucus (Auto) (NEGATIVE) /HPF Ur Culture Indicated? Urine Glucose (NEGATIVE) mg/dL Influenza Type A Ag NEGATIVE (NEGATIVE) Influenza Type B Ag NEGATIVE (NEGATIVE) RSV (PCR) NEGATIVE (Negative) SARS-CoV-2 (PCR) NEGATIVE (NEGATIVE) 03/06/22 03/06/22 Range/Units 10:34 10:32 WBC (4.0-10.5) K/mm3 RBC (4.1-5.6) M/mm3 Hgb (12.5-18.0) gm/dl Hct (42-50) % MCV (78-100) fl MCH (26-32) pg MCHC (32-36) g/dl RDW (11.5-14.0) % Plt Count (150-450) K/mm3 MPV (7.5-11.0) fl Segmented Neutrophils (36.-66.) % Lymphocytes (Manual) (24-44) % Monocytes (Manual) (0.0-12.0) % Eosinophils (Manual) (0.00-3.0) % Platelet Estimate (NORMAL) RBC Morphology Sodium Direct (138-146) mmol/L Potassium (3.5-4.9) mmol/L Chloride (98-109) mmol/L Carbon Dioxide (24-29) mmol/L Venous BUN (8-26) mg/dL Creatinine (0.6-1.3) mg/dL Glucose (70-105) mg/dL Lactic Acid 1.7 (0.4-2.0) Ionized Calcium (1.12-1.32) mmol/L Urinalys Dipstick Clnc MAIN LAB Urine Color YELLOW (YELLOW) Urine Appearance CLEAR (CLEAR) Urine pH 8.5 (5-6) Ur Specific [place] 1.020 (1.005-1.025) POC Urine Protein Conf NEGATIVE (Negative) Urine Ketones NEGATIVE (NEGATIVE) Urine Nitrite NEGATIVE (NEGATIVE) Urine Bilirubin NEGATIVE (NEGATIVE) Urine Urobilinogen 0.2 (0-1) mg/dL Urine Leukocytes NEGATIVE (NEGATIVE) Urine WBC (Auto) 0-2 (0-5) /HPF Urine RBC (Auto) 0-2 (0-2) /HPF U Epithel Cells (Auto) RARE (FEW) /HPF Urine Bacteria (Auto) RARE (NEGATIVE) /HPF Urine RBC NEGATIVE (0-5) Chase/ul Urine Mucus (Auto) SLIGHT (NEGATIVE) /HPF Ur Culture Indicated? NO Urine Glucose NEGATIVE (NEGATIVE) mg/dL Influenza Type A Ag (NEGATIVE) Influenza Type B Ag (NEGATIVE) RSV (PCR) (Negative) SARS-CoV-2 (PCR) (NEGATIVE) - Progress Progress: improved Progress Note: Case discussed with Dr. Alexis who excepts admission to observation. Plan of care discussed with patient. He agrees to admission [facility] for further evaluation and treatment. Patient voices no other complaint or concerns at this time. Portions of this note were created with voice recognition technology. There may be grammatical, spelling, punctuation or sound alike errors 03/06/22 12:[address] Ivory Will see patient in: hospital (observation) Counseled pt/family regarding: lab results, diagnosis, rad results - Departure Departure Disposition: Observation Clinical Impression: Chronic viral meningitis Condition: Stable Critical Care Time: No Referrals: ANN ALEXIS MD [Primary Care Provider] - Follow up/PCP as directed
[2022-03-06] MEDS ORDERED: Sodium Chloride 0.9% 1000 ML 1,000 ML IV SCH (10:45)
[2022-03-06] MEDS ORDERED: Zofran 4 MG/2 ML VIAL ONE (10:57)
[2022-03-06] MEDS ORDERED: Zovirax INJ IV ONE (10:57)
[2022-03-06 10:58] LABS: Mucus SLIGHT /HPF (NEGATIVE)
[2022-03-06] MEDS ORDERED: Sodium Chloride 0.9% 100 ML BAG 100 ML ONE (10:58)
[2022-03-06] MEDS ORDERED: Sodium Chloride 0.9% 1000 ML 1,000 ML ONE (10:58)
[2022-03-06] MEDS ORDERED: solu-MEDROL ONE (10:58)
[2022-03-06] MEDS ORDERED: ROCEPHIN 1 Gm-D5w 50 ml Bag** 1 G/50 ML IVPB IV ONE (10:58)
[2022-03-06 11:00] LABS: Appearance CLEAR (CLEAR); Bilirubin NEGATIVE (NEGATIVE); Glucose NEGATIVE (NEGATIVE); Ketones NEGATIVE (NEGATIVE); Ph 8.5 (5-6); RBC NEGATIVE Ery/ul (0-5)
[2022-03-06 11:01] LABS: Bacteria RARE /HPF (NEGATIVE); Epithelial Cells RARE /HPF (FEW); Nitrite NEGATIVE (NEGATIVE); Protein,Urine Dip NEGATIVE (Negative); RBC 0-2 /HPF (0-2); Urine Cultured Indicated? NO; Urobilinogen 0.2 mg/dL (0-1); WBC 0-2 /HPF (0-5)
[2022-03-06 11:02] LABS: Dipstick done @ ? MAIN LAB
[2022-03-06 11:17] LABS: Hematocrit 49.4 % (42-50); Mean Cell Volume 88.7 fl (78-100); Mean Corpuscular Hemoglobin 28.7 pg (26-32); Mean Corpuscular Hgb Concent. 32.4 g/dl (32-36); Mean Platelet Volume 10.3 fl (7.5-11.0); Platelet Count 418 K/mm3 (150-450); Red Blood Count 5.57 M/mm3 (4.1-5.6); Red Cell Distribution Width 15.8 % (11.5-14.0); White Blood Count 10.2 K/mm3 (4.0-10.5)
[2022-03-06] MEDS: DILAUDID 1 MG/1ML PCA IV PRN (11:19)
[2022-03-06 11:32] LABS: INFLUENZA A NEGATIVE (NEGATIVE); INFLUENZA B NEGATIVE (NEGATIVE); RESPIRATORY SYNCTIAL VIRUS NEGATIVE (Negative); SARS-CoV-2 Xpert Express NEGATIVE (NEGATIVE)
[2022-03-06 11:35] LABS: Eosinophil 8 % (0.00-3.0); Lymphocytes 31 % (24-44); Monocyte 8 % (0.0-12.0); Platelet Estimate NORMAL (NORMAL); Total Cells Counted 100
[2022-03-06] MEDS: ROCEPHIN 1 Gm-D5w 50 ml Bag** 1 G/50 ML IVPB IV STA (11:39)
[2022-03-06 11:50] LABS: ISTAT K 4.1 mmol/L (3.5-4.9)
[2022-03-06 11:51] LABS: ISTAT CREA 0.9 mg/dL (0.6-1.3)
[2022-03-06] MEDS ORDERED: Zofran 4 MG/2 ML VIAL IV PRN (13:21)
[2022-03-06] MEDS ORDERED: DILAUDID 1 MG/1ML PCA IV PRN (13:21)
[2022-03-06] MEDS: Sodium Chloride 0.9% 1000 ML 1,000 ML IV SCH ×2 (13:27→23:59)
[2022-03-06] MEDS: solu-CORTEF 100MG IV SCH ×2 (15:24→21:37)
[2022-03-06] MEDS: HUMALOG SQ PRN ×2 (16:42→22:32)
[2022-03-06] MEDS ORDERED: PATIENT OWN MEDICATION IJ SCH (17:15)
[2022-03-06] MEDS: MSIR 15 MG PO PRN ×2 (17:59→23:59)
[2022-03-06 19:08] LABS: ALBUMIN 4.3 g/dL (3.5-5.0); ALKALINE PHOSPHATASE 50 U/L (38-126); ANION GAP 14.9 MEQ/L (5-15); BLOOD UREA NITROGEN 11 mg/dL (9-20); CHLORIDE 108 mmol/L (98-107); Calcium 9.6 mg/dL (8.4-10.2); Carbon Dioxide 22 mmol/L (22-30); Creatinine 1 0.62 mg/dL (0.66-1.25); EST GLOMERULAR FILTRATION RATE > 60.0 ML/MIN; Glucose 84 mg/dL (74-106); Potassium 4.2 mmol/L (3.5-5.1); SGOT/AST 52 U/L (17-59); SGPT/ALT 28 U/L (0-50); SODIUM 141 mmol/L (137-145); Total Protein 7.2 g/dL (6.3-8.2)
[2022-03-06] MEDS: MINERAL OIL PO SCH (21:36)
[2022-03-06] MEDS: Protonix 20MG Tablet PO SCH (21:36)
[2022-03-06] MEDS: Cymbalta 30 MG Capsule PO SCH (21:36)
[2022-03-06] MEDS: Vasotec 10 MG PO SCH (21:37)
[2022-03-06] MEDS: SODIUM CHLORIDE 0.9% IV SCH (21:37)
[2022-03-06] MEDS: ZOVIRAX IV SCH (21:37)
[2022-03-06] MEDS: Zocor 10MG PO SCH (21:37)
[2022-03-06] MEDS ORDERED: NON-FORMULARY ITEM (Duloxetine Hcl [Cymbalta] 60 MG Capsule.Dr) PO SCH (22:00)
[2022-03-06] MEDS ORDERED: NON-FORMULARY ITEM (Atorvastatin Calcium 10 MG Tablet) PO SCH (22:00)
[2022-03-06] MEDS ORDERED: NON-FORMULARY ITEM (Esomeprazole Magnesium [Nexium] 20 MG Capsule.Dr) PO SCH (22:00)
[2022-03-06] MEDS ORDERED: ENALAPRIL MALEATE 10 MG PO SCH (22:00)
[2022-03-07 05:23] LABS: Absolute Neutrophil Ct (ANC) 8.13 (1.4-6.9); Basophil (Absolute #) 0.01 (0-0.4); Eosinophil (Absolute #) 0 (0-0.5); Hematocrit 44.6 % (42-50); Hemoglobin 14.1 gm/dl (12.5-18.0); Lymphocyte (Absolute #) 2.29 (1.0-4.6); Lymphocytes % 19.9 % (24.0-44.0); Mean Cell Volume 89.2 fl (78-100); Mean Corpuscular Hemoglobin 28.2 pg (26-32); Mean Corpuscular Hgb Concent. 31.6 g/dl (32-36); Mean Platelet Volume 9.9 fl (7.5-11.0); Monocyte (Absolute #) 1.05 (0.0-1.3); Monocytes % 9.1 % (0.0-12.0); Neutrophil % 70.9 % (36.0-66.0); Platelet Count 383 K/mm3 (150-450); Red Cell Distribution Width 15.7 % (11.5-14.0); White Blood Count 11.5 K/mm3 (4.0-10.5)
[2022-03-07 05:47] LABS: ALBUMIN 3.8 g/dL (3.5-5.0); ALKALINE PHOSPHATASE 74 U/L (38-126); ANION GAP 12.4 MEQ/L (5-15); BLOOD UREA NITROGEN 15 mg/dL (9-20); CHLORIDE 100 mmol/L (98-107); Calcium 8.7 mg/dL (8.4-10.2); Carbon Dioxide 26 mmol/L (22-30); Creatinine 1 0.74 mg/dL (0.66-1.25); EST GLOMERULAR FILTRATION RATE > 60.0 ML/MIN; Glucose 174 mg/dL (74-106); Potassium 4.2 mmol/L (3.5-5.1); SGOT/AST 38 U/L (17-59); SGPT/ALT 44 U/L (0-50); SODIUM 134 mmol/L (137-145); Total Protein 6.5 g/dL (6.3-8.2)
[2022-03-07] MEDS: MSIR 15 MG PO PRN ×3 (05:59→18:51)
[2022-03-07] MEDS: solu-CORTEF 100MG IV SCH ×3 (05:59→21:29)
[2022-03-07] MEDS: SODIUM CHLORIDE 0.9% IV SCH ×3 (06:00→21:28)
[2022-03-07] MEDS: ZOVIRAX IV SCH ×3 (06:00→21:28)
[2022-03-07] MEDS: ECOTRIN 81 MG PO SCH (09:15)
[2022-03-07] MEDS: MINERAL OIL PO SCH ×3 (09:16→21:30)
[2022-03-07] MEDS: Acidophilus TABLET PO SCH (09:16)
[2022-03-07] MEDS: Cymbalta 30 MG Capsule PO SCH ×2 (09:16→21:27)
[2022-03-07] MEDS: THERAGRAN MULTIVITAMIN PO SCH (09:16)
[2022-03-07] MEDS ORDERED: NON-FORMULARY ITEM (Multivitamin [Multi-Vitamin Daily] 1 EACH Tablet) PO SCH (10:00)
[2022-03-07] MEDS ORDERED: NON-FORMULARY ITEM (L.Acidoph,Paracasei, B.Lactis [Probiotic] 1 EACH Capsule) PO SCH (10:00)
[2022-03-07] MEDS ORDERED: MORPHINE SULFATE 1 MG/ML IJ SCH (10:00)
[2022-03-07] MEDS ORDERED: NON-FORMULARY ITEM (Aspirin [Aspirin] 81 MG Tablet) PO SCH (10:00)
[2022-03-07] MEDS: Sodium Chloride 0.9% 1000 ML 1,000 ML IV SCH ×2 (11:14→23:27)
[2022-03-07] MEDS: HUMALOG SQ PRN ×2 (12:47→21:49)
[2022-03-07] MEDS: DILAUDID 1 MG/1ML PCA IV PRN (15:18)
--- NOTE | 2022-03-07 16:08 | PCM.HP ---
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 admitted for usual flareup - Review of Systems Constitutional: No Fever, No Chills Respiratory: No Cough, No Short Of Breath Cardiac: No Chest Pain, No Edema, No Syncope Abdominal/Gastrointestinal: No Abdominal Pain, No Nausea, No Vomiting, No Diarrhea Skin: No Rash Neurological: Headache Medications & Allergies Home Medications: Home Medication List Aspirin 81 mg PO DAILY 01/24/14 [History Confirmed 03/06/22] Enalapril Maleate 10 mg [Vasotec 10 MG] 20 mg PO HS 01/24/14 [History Confirmed 03/06/22] Mineral Oil 30 ml PO TID 01/24/14 [History Confirmed 03/06/22] Multivitamin [Multi-Vitamin Daily] 1 each PO DAILY 01/24/14 [History Confirmed 03/06/22] Testosterone Cypionate 1.25 ml IM UD 10/09/14 [History Confirmed 03/06/22] Duloxetine HCl [Cymbalta] 60 mg PO BID 04/23/15 [History Confirmed 03/06/22] Prednisone 10 mg [Deltasone 10 mg] 15 mg PO DAILY 04/23/15 [History Confirmed 03/06/22] Morphine Sulfate/Pf [Morphine 10 mg/10 ml Vial] 15.6 mg IJ DAILY 07/29/19 [History Confirmed 03/06/22] L.acidoph,Paracasei, B.lactis [Probiotic] 2 each PO DAILY 10/23/19 [History Confirmed 03/06/22] Metformin HCl 500 mg [Glucophage 500 MG] 1,000 mg PO BIDWM 04/20/20 [History Confirmed 03/06/22] Atorvastatin Calcium [Lipitor] 10 mg PO HS 01/06/22 [History Confirmed 03/06/22] Morphine Sulfate Ir 15 mg [Msir 15 mg] 15 mg PO Q6H PRN PRN 02/07/22 [History Confirmed 03/06/22] Esomeprazole Magnesium [Nexium] 20 mg PO HS 03/06/22 [History Confirmed 03/06/22] Allergies/Adverse Reactions: Allergies Allergy/AdvReac Type Severity Reaction Status Date / Time pregabalin [From Lyrica] AdvReac Severe Hives Verified 03/06/22 10:31 azithromycin [From Zmax] AdvReac Mild Verified 03/06/22 10:31 - Past Medical History Past Medical History: Yes Neurological History: Other ENT History: No Pertinent History Cardiac History: Hypertension Respiratory History: No Pertinent History Endocrine Medical History: No Pertinent History Musculoskelatal History: No Pertinent History GI Medical History: Other History: No Pertinent History Pyscho-Social History: No Pertinent History Male Reproductive Disorders: No Pertinent History Comment: Mollaret's, spleen removed - Past Surgical History Past Surgical History: Yes Neuro Surgical History: No Pertinent History Cardiac History: No Pertinent History Respiratory Surgery: No Pertinent History GI Surgical History: Other Genitourinary Surgical Hx: No Pertinent History Musculskeletal Surgical Hx: No Pertinent History Male Surgical History: Vasectomy Other Surgical History: spleen removed, apendectomy, 2 nasal surgeries - Social History Smoking Status: Never smoker Exposure to second hand smoke: No Alcohol: None Drug Use: none Significant Family History: no pertinent family hx - Physical Exam Vital Signs: Vital Signs - 24 hr Temp Pulse Resp BP Pulse Ox 03/07/22 12:00 97.5 F 89 16 103/54 96 03/07/22 08:00 97.5 F 85 18 124/83 98 03/07/22 04:00 97.9 F 99 H 18 126/84 95 03/07/22 00:00 98.2 F 102 H 20 109/65 96 03/06/22 20:00 97.7 F 102 H 21 140/60 97 03/06/22 19:01 97 03/06/22 17:22 93 L General Appearance: no apparent distress, alert, obese Neurologic Exam: alert, oriented x 3 Respiratory Exam: normal breath sounds, lungs clear, No respiratory distress Cardiovascular Exam: regular rate/rhythm, normal heart sounds, normal peripheral pulses Gastrointestinal/Abdomen Exam: soft, normal bowel sounds, No tenderness, No mass Extremity Exam: normal inspection, normal range of motion, pelvis stable Skin Exam: normal color, warm, dry, No rash Results - Labs Lab/Micro Results: Lab Results-Last 24 Hours 03/06/22 03/06/22 03/06/22 Range/Units 10:45 15:59 22:11 WBC (4.0-10.5) K/mm3 RBC (4.1-5.6) M/mm3 Hgb (12.5-18.0) gm/dl Hct (42-50) % MCV (78-100) fl MCH (26-32) pg MCHC (32-36) g/dl RDW (11.5-14.0) % Plt Count (150-450) K/mm3 MPV (7.5-11.0) fl Gran % (36.0-66.0) % Eos # (Auto) (0-0.5) Absolute Lymphs (auto) (1.0-4.6) Absolute Monos (auto) (0.0-1.3) Lymphocytes % (24.0-44.0) % Monocytes % (0.0-12.0) % Eosinophils % (0.00-5.0) % Basophils % (0.0-0.4) % Absolute Granulocytes (1.4-6.9) Basophils # (0-0.4) Sodium 141 (137-145) mmol/L Potassium 4.2 (3.5-5.1) mmol/L Chloride 108 H (98-107) mmol/L Carbon Dioxide 22 (22-30) mmol/L Anion Gap 14.9 (5-15) MEQ/L BUN 11 (9-20) mg/dL Creatinine 0.62 L (0.66-1.25) mg/dL Estimated GFR > 60.0 ML/MIN Glucose 84 (74-106) mg/dL POC Glucometer 164 H 296 H (74 to 106) mg/dL Calcium 9.6 (8.4-10.2) mg/dL Total Bilirubin 0.50 (0.2-1.3) mg/dL AST 52 (17-59) U/L ALT 28 (0-50) U/L Alkaline Phosphatase 50 (38-126) U/L Serum Total Protein 7.2 (6.3-8.2) g/dL Albumin 4.3 (3.5-5.0) g/dL 03/07/22 03/07/22 03/07/22 Range/Units 04:40 04:40 07:30 WBC 11.5 H (4.0-10.5) K/mm3 RBC 5.00 (4.1-5.6) M/mm3 Hgb 14.1 (12.5-18.0) gm/dl Hct 44.6 (42-50) % MCV 89.2 (78-100) fl MCH 28.2 (26-32) pg MCHC 31.6 L (32-36) g/dl RDW 15.7 H (11.5-14.0) % Plt Count 383 (150-450) K/mm3 MPV 9.9 (7.5-11.0) fl Gran % 70.9 H (36.0-66.0) % Eos # (Auto) 0 (0-0.5) Absolute Lymphs (auto) 2.29 (1.0-4.6) Absolute Monos (auto) 1.05 (0.0-1.3) Lymphocytes % 19.9 L (24.0-44.0) % Monocytes % 9.1 (0.0-12.0) % Eosinophils % 0.0 (0.00-5.0) % Basophils % 0.1 (0.0-0.4) % Absolute Granulocytes 8.13 H (1.4-6.9) Basophils # 0.01 (0-0.4) Sodium 134 L (137-145) mmol/L Potassium 4.2 (3.5-5.1) mmol/L Chloride 100 (98-107) mmol/L Carbon Dioxide 26 (22-30) mmol/L Anion Gap 12.4 (5-15) MEQ/L BUN 15 (9-20) mg/dL Creatinine 0.74 (0.66-1.25) mg/dL Estimated GFR > 60.0 ML/MIN Glucose 174 H (74-106) mg/dL POC Glucometer 105 (74 to 106) mg/dL Calcium 8.7 (8.4-10.2) mg/dL Total Bilirubin 0.40 (0.2-1.3) mg/dL AST 38 (17-59) U/L ALT 44 (0-50) U/L Alkaline Phosphatase 74 (38-126) U/L Serum Total Protein 6.5 (6.3-8.2) g/dL Albumin 3.8 (3.5-5.0) g/dL 03/07/22 Range/Units 11:31 WBC (4.0-10.5) K/mm3 RBC (4.1-5.6) M/mm3 Hgb (12.5-18.0) gm/dl Hct (42-50) % MCV (78-100) fl MCH (26-32) pg MCHC (32-36) g/dl RDW (11.5-14.0) % Plt Count (150-450) K/mm3 MPV (7.5-11.0) fl Gran % (36.0-66.0) % Eos # (Auto) (0-0.5) Absolute Lymphs (auto) (1.0-4.6) Absolute Monos (auto) (0.0-1.3) Lymphocytes % (24.0-44.0) % Monocytes % (0.0-12.0) % Eosinophils % (0.00-5.0) % Basophils % (0.0-0.4) % Absolute Granulocytes (1.4-6.9) Basophils # (0-0.4) Sodium (137-145) mmol/L Potassium (3.5-5.1) mmol/L Chloride (98-107) mmol/L Carbon Dioxide (22-30) mmol/L Anion Gap (5-15) MEQ/L BUN (9-20) mg/dL Creatinine (0.66-1.25) mg/dL Estimated GFR ML/MIN Glucose (74-106) mg/dL POC Glucometer 254 H (74 to 106) mg/dL Calcium (8.4-10.2) mg/dL Total Bilirubin (0.2-1.3) mg/dL AST (17-59) U/L ALT (0-50) U/L Alkaline Phosphatase (38-126) U/L Serum Total Protein (6.3-8.2) g/dL Albumin (3.5-5.0) g/dL Accuchecks Date 03/07/22 Date 03/07/22 Date 03/06/22 Time 11:45 Time 07:52 Time 16:38 - Other Procedures and Tests Respiratory Therapy 03/06/22 15:37 Oxygen Nasal Cannula 2 lpm Assessment/Plan (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
[2022-03-07] MEDS: Zocor 10MG PO SCH (21:27)
[2022-03-07] MEDS: Vasotec 10 MG PO SCH (21:28)
[2022-03-07] MEDS: Protonix 20MG Tablet PO SCH (21:28)
[2022-03-08] MEDS: MSIR 15 MG PO PRN ×2 (00:06→06:00)
[2022-03-08] MEDS: ZOVIRAX IV SCH ×3 (05:06→21:21)
[2022-03-08] MEDS: SODIUM CHLORIDE 0.9% IV SCH ×3 (05:06→21:21)
[2022-03-08] MEDS: Sodium Chloride 0.9% 1000 ML 1,000 ML IV SCH ×3 (06:00→23:10)
[2022-03-08] MEDS: solu-CORTEF 100MG IV SCH ×3 (06:00→21:20)
--- NOTE | 2022-03-08 07:38 | PCM.NOTE ---
Date and Time: 03/08/22 0737 Subjective Assessment: no significant change in headache and neck pain, seems to be a more severe flare than he has had in a long time. tolerating po intake Objective Exam General Appearance: no apparent distress, obese Neurologic Exam: alert, oriented x 3, cooperative Respiratory Exam: normal breath sounds, lungs clear, No respiratory distress Cardiovascular Exam: regular rate/rhythm, normal heart sounds Gastrointestinal/Abdomen Exam: soft, No tenderness, No mass OBJECTIVE DATA Vital Signs: Vital Signs - 24 hr Temp Pulse Resp BP BP Pulse Ox 03/08/22 07:24 97.5 F 71 20 131/79 96 03/08/22 04:00 97.0 F 82 20 132/92 98 03/08/22 00:50 94 L 03/07/22 23:39 97.3 F 77 18 119/64 98 03/07/22 20:00 98.5 F 90 18 127/66 03/07/22 19:18 96 03/07/22 16:00 97.5 F 73 18 126/83 96 03/07/22 12:00 97.5 F 89 16 103/54 96 03/07/22 08:00 97.5 F 85 18 124/83 98 Pain Assessment - Last Documented Pain Intensity [Neck] 10 Pain Intensity 4 Intake and Output: Intake & Output 03/05/22 03/06/22 03/07/22 03/08/22 11:59 11:59 11:59 11:59 Intake Total 5520 2216 Output Total 4275 4000 Balance 1245 -1784 Weight 108.862 kg 109.2 kg Lab Results: Lab Results-Last 24 Hours 03/07/22 03/07/22 03/07/22 Range/Units 11:31 16:23 21:40 POC Glucometer 254 H 235 H 256 H (74 to 106) mg/dL 03/08/22 Range/Units 06:57 POC Glucometer 121 H (74 to 106) mg/dL Assessment/Plan (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 Code(s): G03.2 - BENIGN RECURRENT MENINGITIS [MOLLARET] (2) Type 2 diabetes mellitus Current Visit: No Status: Chronic Qualifiers:
[2022-03-08] MEDS: Acidophilus TABLET PO SCH (09:20)
[2022-03-08] MEDS: Cymbalta 30 MG Capsule PO SCH ×2 (09:20→21:20)
[2022-03-08] MEDS: MINERAL OIL PO SCH ×3 (09:20→21:20)
[2022-03-08] MEDS: THERAGRAN MULTIVITAMIN PO SCH (09:20)
[2022-03-08] MEDS: ECOTRIN 81 MG PO SCH (09:20)
[2022-03-08] MEDS: ROCEPHIN 1 Gm-D5w 50 ml Bag** 1 G/50 ML IVPB IV STA (09:53)
[2022-03-08] MEDS: MSIR 15 MG PO SCH ×3 (12:04→23:11)
[2022-03-08] MEDS: Protonix 20MG Tablet PO SCH (21:20)
[2022-03-08] MEDS: Vasotec 10 MG PO SCH (21:20)
[2022-03-08] MEDS: Zocor 10MG PO SCH (21:20)
[2022-03-08] MEDS: DILAUDID 1 MG/1ML PCA IV PRN (23:02)
[2022-03-08] MEDS: HUMALOG SQ PRN (23:12)
[2022-03-09] MEDS: SODIUM CHLORIDE 0.9% IV SCH ×3 (05:12→21:02)
[2022-03-09] MEDS: MSIR 15 MG PO SCH ×4 (05:12→23:24)
[2022-03-09] MEDS: solu-CORTEF 100MG IV SCH ×3 (05:12→20:58)
[2022-03-09] MEDS: ZOVIRAX IV SCH ×3 (05:12→21:02)
[2022-03-09 05:34] LABS: Hematocrit 42.3 % (42-50); Hemoglobin 13.3 gm/dl (12.5-18.0); Mean Cell Volume 90.6 fl (78-100); Mean Corpuscular Hemoglobin 28.5 pg (26-32); Mean Corpuscular Hgb Concent. 31.4 g/dl (32-36); Platelet Count 372 K/mm3 (150-450); Red Blood Count 4.67 M/mm3 (4.1-5.6); Red Cell Distribution Width 15.8 % (11.5-14.0)
[2022-03-09 05:53] LABS: ANION GAP 8.5 MEQ/L (5-15); BLOOD UREA NITROGEN 12 mg/dL (9-20); CHLORIDE 104 mmol/L (98-107); Calcium 8.3 mg/dL (8.4-10.2); Carbon Dioxide 29 mmol/L (22-30); Creatinine 1 0.75 mg/dL (0.66-1.25); EST GLOMERULAR FILTRATION RATE > 60.0 ML/MIN; Glucose 193 mg/dL (74-106); Potassium 4.3 mmol/L (3.5-5.1); SODIUM 137 mmol/L (137-145)
--- NOTE | 2022-03-09 07:57 | PCM.NOTE ---
Date and Time: 03/09/22 0756 Subjective Assessment: pain is improved today, tolerating po and got some sleep last night. seems to be moving the right direction Objective Exam General Appearance: no apparent distress Neurologic Exam: alert, oriented x 3 Respiratory Exam: normal breath sounds, lungs clear, No respiratory distress Cardiovascular Exam: regular rate/rhythm, normal heart sounds Gastrointestinal/Abdomen Exam: soft, No tenderness, No mass Extremity Exam: normal inspection, normal range of motion OBJECTIVE DATA Vital Signs: Vital Signs - 24 hr Temp Pulse Resp BP Pulse Ox 03/09/22 07:39 96 03/09/22 07:10 97.5 F 70 18 146/86 96 03/09/22 06:00 98 03/09/22 04:00 97.3 F 68 18 161/72 98 03/09/22 00:00 97.1 F 60 18 128/77 96 03/08/22 23:02 95 03/08/22 20:00 96.9 F 87 20 146/73 99 03/08/22 19:59 99 03/08/22 16:00 97.7 F 73 18 133/85 97 03/08/22 11:24 97.5 F 73 18 123/76 92 L 03/08/22 10:47 97 Pain Assessment - Last Documented Pain Intensity [Neck] 10 Pain Intensity 4 Intake and Output: Intake & Output 03/06/22 03/07/22 03/08/22 03/09/22 11:59 11:59 11:59 11:59 Intake Total 5520 4294 2164 Output Total 4275 9090 3275 Balance 7335 -256 -9778 Weight 108.862 kg 109.2 kg Lab Results: Lab Results-Last 24 Hours 03/08/22 03/08/22 03/08/22 Range/Units 11:13 16:29 22:15 WBC (4.0-10.5) K/mm3 RBC (4.1-5.6) M/mm3 Hgb (12.5-18.0) gm/dl Hct (42-50) % MCV (78-100) fl MCH (26-32) pg MCHC (32-36) g/dl RDW (11.5-14.0) % Plt Count (150-450) K/mm3 MPV (7.5-11.0) fl Sodium (137-145) mmol/L Potassium (3.5-5.1) mmol/L Chloride (98-107) mmol/L Carbon Dioxide (22-30) mmol/L Anion Gap (5-15) MEQ/L BUN (9-20) mg/dL Creatinine (0.66-1.25) mg/dL Estimated GFR ML/MIN Glucose (74-106) mg/dL POC Glucometer 173 H 234 H 234 H (74 to 106) mg/dL Calcium (8.4-10.2) mg/dL 03/09/22 03/09/22 03/09/22 Range/Units 05:10 05:10 06:34 WBC 12.0 H (4.0-10.5) K/mm3 RBC 4.67 (4.1-5.6) M/mm3 Hgb 13.3 (12.5-18.0) gm/dl Hct 42.3 (42-50) % MCV 90.6 (78-100) fl MCH 28.5 (26-32) pg MCHC 31.4 L (32-36) g/dl RDW 15.8 H (11.5-14.0) % Plt Count 372 (150-450) K/mm3 MPV 10.0 (7.5-11.0) fl Sodium 137 (137-145) mmol/L Potassium 4.3 (3.5-5.1) mmol/L Chloride 104 (98-107) mmol/L Carbon Dioxide 29 (22-30) mmol/L Anion Gap 8.5 (5-15) MEQ/L BUN 12 (9-20) mg/dL Creatinine 0.75 (0.66-1.25) mg/dL Estimated GFR > 60.0 ML/MIN Glucose 193 H (74-106) mg/dL POC Glucometer 124 H (74 to 106) mg/dL Calcium 8.3 L (8.4-10.2) mg/dL Assessment/Plan (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 Code(s): G03.2 - BENIGN RECURRENT MENINGITIS [MOLLARET] (2) Type 2 diabetes mellitus Current Visit: No Status: Chronic Qualifiers:
[2022-03-09] MEDS: MINERAL OIL PO SCH ×3 (08:50→20:54)
[2022-03-09] MEDS: Acidophilus TABLET PO SCH (08:51)
[2022-03-09] MEDS: ECOTRIN 81 MG PO SCH (08:51)
[2022-03-09] MEDS: Cymbalta 30 MG Capsule PO SCH ×2 (08:51→20:54)
[2022-03-09] MEDS: THERAGRAN MULTIVITAMIN PO SCH (08:51)
[2022-03-09] MEDS: Sodium Chloride 0.9% 1000 ML 1,000 ML IV SCH ×2 (10:24→23:24)
[2022-03-09 11:04] LABS: Lymphocytes 34 % (24-44); Monocyte 4 % (0.0-12.0); Platelet Estimate NORMAL (NORMAL); Total Cells Counted 100
[2022-03-09] MEDS: Vasotec 10 MG PO SCH (20:54)
[2022-03-09] MEDS: Zocor 10MG PO SCH (20:55)
[2022-03-09] MEDS: Protonix 20MG Tablet PO SCH (20:55)
[2022-03-09] MEDS: HUMALOG SQ PRN (21:21)
[2022-03-10] MEDS: MSIR 15 MG PO SCH ×4 (06:07→23:52)
[2022-03-10] MEDS: solu-CORTEF 100MG IV SCH ×3 (06:07→21:36)
[2022-03-10] MEDS: ZOVIRAX IV SCH ×3 (06:20→21:33)
[2022-03-10] MEDS: SODIUM CHLORIDE 0.9% IV SCH ×3 (06:20→21:33)
[2022-03-10] MEDS: DILAUDID 1 MG/1ML PCA IV PRN (07:35)
--- NOTE | 2022-03-10 08:14 | PCM.NOTE ---
Date and Time: 03/10/22813 Subjective Assessment: patient still has significant pain and debility, has had some improvement but not feeling great yet Objective Exam General Appearance: no apparent distress, alert Respiratory Exam: normal breath sounds, lungs clear, No respiratory distress Cardiovascular Exam: regular rate/rhythm, normal heart sounds Gastrointestinal/Abdomen Exam: soft, No tenderness, No mass OBJECTIVE DATA Vital Signs: Vital Signs - 24 hr Temp Pulse Resp BP Pulse Ox 03/10/22 08:00 96.9 F 59 L 20 145/84 95 03/10/22 07:35 93 L 03/10/22 07:05 93 L 03/10/22 06:00 95 03/09/22 23:46 97.1 F 60 20 142/81 96 03/09/22 20:07 96 03/09/22 20:00 97.5 F 75 18 143/78 95 03/09/22 17:54 96 03/09/22 16:00 97.5 F 61 18 159/94 96 03/09/22 11:36 97.5 F 64 16 131/67 95 Pain Assessment - Last Documented Pain Intensity [Neck] 10 Pain Intensity 7 Intake and Output: Intake & Output 03/07/22 03/08/22 03/09/22 03/10/22 11:59 11:59 11:59 11:59 Intake Total 5520 4294 3904 4766 Output Total 4279 6610 4120 4600 Balance 3485 -446 -746 166 Weight 109.2 kg Lab Results: Lab Results-Last 24 Hours 03/09/22 03/09/22 03/09/22 Range/Units 05:10 11:32 16:17 Segmented Neutrophils 62 (36.-66.) % Lymphocytes (Manual) 34 (24-44) % Monocytes (Manual) 4 (0.0-12.0) % Platelet Estimate NORMAL (NORMAL) RBC Morphology NORMAL POC Glucometer 160 H 227 H (74 to 106) mg/dL 03/09/22 03/10/22 Range/Units 21:05 07:34 Segmented Neutrophils (36.-66.) % Lymphocytes (Manual) (24-44) % Monocytes (Manual) (0.0-12.0) % Platelet Estimate (NORMAL) RBC Morphology POC Glucometer 202 H 148 H (74 to 106) mg/dL Assessment/Plan (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 hopeful to be able to discharge tomorrow Code(s): G03.2 - BENIGN RECURRENT MENINGITIS [MOLLARET] (2) Type 2 diabetes mellitus Current Visit: No Status: Chronic Qualifiers:
[2022-03-10] MEDS: THERAGRAN MULTIVITAMIN PO SCH (09:14)
[2022-03-10] MEDS: Acidophilus TABLET PO SCH (09:14)
[2022-03-10] MEDS: ECOTRIN 81 MG PO SCH (09:14)
[2022-03-10] MEDS: Cymbalta 30 MG Capsule PO SCH ×2 (09:14→21:39)
[2022-03-10] MEDS: MINERAL OIL PO SCH ×3 (09:15→21:38)
[2022-03-10] MEDS: Sodium Chloride 0.9% 1000 ML 1,000 ML IV SCH (21:32)
[2022-03-10] MEDS: Vasotec 10 MG PO SCH (21:38)
[2022-03-10] MEDS: Protonix 20MG Tablet PO SCH (21:39)
[2022-03-10] MEDS: Zocor 10MG PO SCH (21:39)
[2022-03-10] MEDS: HUMALOG SQ PRN (21:56)
[2022-03-11] MEDS: SODIUM CHLORIDE 0.9% IV SCH (05:42)
[2022-03-11] MEDS: ZOVIRAX IV SCH (05:42)
[2022-03-11] MEDS: solu-CORTEF 100MG IV SCH (05:43)
[2022-03-11] MEDS: MSIR 15 MG PO SCH (05:43)
[2022-03-11 08:12] VITALS: O2SAT 92
[2022-03-11 08:29] VITALS: BP 145/71; PULSE 53
[2022-03-11] MEDS: Acidophilus TABLET PO SCH (09:20)
[2022-03-11] MEDS: ECOTRIN 81 MG PO SCH (09:20)
[2022-03-11] MEDS: THERAGRAN MULTIVITAMIN PO SCH (09:20)
[2022-03-11] MEDS: Cymbalta 30 MG Capsule PO SCH (09:20)
[2022-03-11] MEDS: MINERAL OIL PO SCH (09:21)
--- NOTE | 2022-03-11 09:45 | PCM.DS ---
Discharge Summary Date of Admission: 03/07/22 09:00 Admitting Physician: ANN ALEXIS Primary Care Provider: ANN ALEXIS Allergies Allergies pregabalin [From Lyrica] Adverse Reaction (Severe, Verified 03/06/22 10:31) Hives SOB hives azithromycin [From Zmax] Adverse Reaction (Mild, Verified 03/06/22 10:31) vomiting Hospital Summary - Hospital Course Hospital Course: Mr. Ward is a 52 yo male pt of Dr. Alexis' with Mollaret's meningitis who was admitted for a severe flare. He received IV fluids, antivirals, and pain meds and has recovered today to the point where he is feeling ready to go home. He is tolerating po well. F/u with Dr. Alexis. - Vitals & Intake/Output Vital Signs: Vital Signs Temperature 97.9 F 03/11/22 08:00 Pulse Rate 53 L 03/11/22 08:00 Respiratory Rate 16 03/11/22 08:00 Blood Pressure 145/71 03/11/22 08:00 O2 Sat by Pulse Oximetry 92 L 03/11/22 08:12 Intake & Output: Intake & Output 03/08/22 03/09/22 03/10/22 03/11/22 11:59 11:59 11:59 11:59 Intake Total 4294 3904 5126 3913 Output Total 4950 4125 4600 3800 Balance -656 221 526 113 Weight 109.2 kg - Lab Result Diagrams: 03/09/22 05:10 03/09/22 05:10 Lab Results-Last 24 Hrs: Lab Results-Last 24 Hours 03/10/22 03/10/22 03/10/22 Range/Units 11:34 16:29 21:49 POC Glucometer 175 H 116 H 227 H (74 to 106) mg/dL 03/11/22 Range/Units 08:10 POC Glucometer 143 H (74 to 106) mg/dL Micro Results-Entire Visit: Microbiology 03/06/22 10:55 Blood Culture Gram Stain - Final Blood Not Reportable Blood Culture - Final NO GROWTH 03/06/22 10:45 Blood Culture Gram Stain - Final Blood Not Reportable Blood Culture - Final NO GROWTH Accuchecks Date 03/11/22 Date 03/10/22 Date 03/10/22 Date 03/10/22 Time 08:29 Time 21:05 Time 16:00 Time 13:11 - Procedures and Test Procedures and Tests throughout Hospitalization: Therapy Orders & Screens 03/06/22 15:37 Oxygen Nasal Cannula 2 lpm Comment: Diagnosis: Viral meningitis Discharge Exam General Appearance: no apparent distress, alert Neurologic Exam: cooperative, normal mood/affect Eye Exam: eyes nml inspection Neck Exam: normal inspection Respiratory Exam: normal breath sounds, lungs clear, No crackles/rales, No rhonchi, No wheezing Cardiovascular Exam: regular rate/rhythm, normal heart sounds, No murmur Gastrointestinal/Abdomen Exam: soft, normal bowel sounds, No tenderness Extremity Exam: normal inspection, swelling (trace pretibial edema) Skin Exam: normal color, warm, dry, No rash Final Diagnosis/Problem List - Final Discharge Diagnosis/Problem (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 F/u with Dr. Alexis in 1 week. Code(s): G03.2 - BENIGN RECURRENT MENINGITIS [MOLLARET] (2) Diabetes mellitus Current Visit: No Status: Chronic Code(s): E11.9 - TYPE 2 DIABETES MELLITUS WITHOUT COMPLICATIONS (3) Hypertension Current Visit: No Status: Chronic Onset Date: ~11/01/18 Assessment & Plan: stable Code(s): I10 - ESSENTIAL (PRIMARY) HYPERTENSION - Discharge Disposition: Home, Self-Care Condition: Good Prescriptions: Continue Enalapril Maleate 10 mg [Vasotec 10 MG] 20 mg PO HS Multivitamin [Multi-Vitamin Daily] 1 each PO DAILY Aspirin 81 mg PO DAILY Mineral Oil 30 ml PO TID Testosterone Cypionate 1.25 ml IM UD Duloxetine HCl [Cymbalta] 60 mg PO BID Prednisone 10 mg [Deltasone 10 mg] 15 mg PO DAILY Morphine Sulfate/Pf [Morphine 10 mg/10 ml Vial] 15.6 mg IJ DAILY L.acidoph,Paracasei, B.lactis [Probiotic] 2 each PO DAILY Metformin HCl 500 mg [Glucophage 500 MG] 1,000 mg PO BIDWM Atorvastatin Calcium [Lipitor] 10 mg PO HS Morphine Sulfate Ir 15 mg [Msir 15 mg] 15 mg PO Q6H PRN PRN PRN Reason: Pain Esomeprazole Magnesium [Nexium] 20 mg PO HS Follow up with: ANN ALEXIS MD [Primary Care Provider] -
[2022-03-11] MEDS ORDERED: DILAUDID 1 MG/1ML PCA IV PRN (11:10)
== END 2022-03-11 10:56 | disposition home or self-care (01) | DRG 76 ==
LOC: ED 10:00 → MED SURG 13:19 → OBSVTOIN 03-07 09:00
PROVIDERS: ADMIT Family Medicine; ATTEND Family Medicine
DX: G03.2 Benign recurrent meningitis [Mollaret] (principal); E11.9 Type 2 diabetes mellitus without complications; I10 Essential (primary) hypertension; Z79.899 Other long term (current) drug therapy; Z20.828 Contact with and (suspected) exposure to other viral communicable diseases
CPT/HCPCS: 0241U; 36000; 36415; 80047; 80048; 80053; 81015; 82947; 83605; 85025; 87040; 94760; 94762; 96374; 96375; 99285; G0378; J0133; J0696; J1170; J1720; J1817; J2405; J2930; A9270-GY

== ENCOUNTER 2022-05-02 18:08 | Inpatient (IN) | payer MEDICARE, BC ==
[2022-05-02] MEDS ORDERED: Hydromorphone 1 mg/ml Injection IV ONE (18:17)
[2022-05-02] MEDS ORDERED: solu-CORTEF 100MG IV ONE (18:18)
[2022-05-02] MEDS ORDERED: ROCEPHIN 1 Gm-D5w 50 ml Bag** 1 G/50 ML IVPB IV STA (18:18)
[2022-05-02] MEDS ORDERED: Zofran 4 MG/2 ML VIAL IV ONE (18:19)
[2022-05-02] MEDS ORDERED: Zofran 4 MG/2 ML VIAL ONE (18:23)
[2022-05-02] MEDS ORDERED: solu-CORTEF 100MG ONE (18:23)
[2022-05-02] MEDS ORDERED: ROCEPHIN 1 Gm-D5w 50 ml Bag** 1 G/50 ML IVPB IV ONE (18:24)
[2022-05-02] MEDS ORDERED: Hydromorphone 1 mg/ml Injection ONE (18:24)
[2022-05-02] MEDS ORDERED: Sodium Chloride 0.9% 1000 ML 1,000 ML ONE (18:24)
[2022-05-02] MEDS ORDERED: SODIUM CHLORIDE 0.9% IV SCH (18:30)
[2022-05-02] MEDS ORDERED: ZOVIRAX IV SCH (18:30)
[2022-05-02] MEDS ORDERED: Sodium Chloride 0.9% 1000 ML 1,000 ML IV SCH (18:30)
[2022-05-02 18:33] LABS: Absolute Neutrophil Ct (ANC) 6.32 x10^3/uL (1.4-6.9); Basophil (Absolute #) 0.07 x10^3/uL (0-0.4); Eosinophil % 6.2 % (0.00-5.0); Hematocrit 44.4 % (42-50); Hemoglobin 14.4 g/dL (12.5-18.0); Lymphocyte (Absolute #) 3.26 x10^3/uL (1.0-4.6); Lymphocytes % 29.1 % (24.0-44.0); Mean Cell Volume 88.8 fL (78-100); Mean Corpuscular Hemoglobin 28.8 pg (26-32); Mean Corpuscular Hgb Concent. 32.4 g/dL (32-36); Mean Platelet Volume 9.7 fL (7.5-11.0); Monocyte (Absolute #) 0.82 x10^3/uL (0.0-1.3); Monocytes % 7.3 % (0.0-12.0); Neutrophil % 56.4 % (36.0-66.0); Platelet Count 394 x10^3/uL (150-450); Red Cell Distribution Width 16.3 % (11.5-14.0); White Blood Count 11.2 x10^3/uL (4.0-10.5)
[2022-05-02] MEDS ORDERED: Sodium Chloride 0.9% 250 ML 250 ML IV ONE (18:34)
[2022-05-02] MEDS ORDERED: Zovirax INJ IV ONE (18:34)
[2022-05-02 18:35] LABS: Appearance CLEAR (CLEAR); Bilirubin NEGATIVE (NEGATIVE); Dipstick done @ ? MAIN LAB; Glucose NEGATIVE (NEGATIVE); Ketones NEGATIVE (NEGATIVE); Nitrite NEGATIVE (NEGATIVE); Protein,Urine Dip NEGATIVE (Negative); RBC NEGATIVE Ery/ul (0-5); Specific Gravity 1.025 (1.005-1.025); Urobilinogen 1 mg/dL (0-1)
--- NOTE | 2022-05-02 18:39 | ERPHSYRPT ---
- History of Present Illness Time Seen by Provider: 05/02/22 18:20 Source: patient Exam Limitations: no limitations Patient Subjective Stated Complaint: neck pain Triage Nursing Assessment: pt to ED c/o neck pain r/t flare up of menengitis. pt states this happens occasionally and he is hospitalized for treatment and IV medications. pt rates 9/10 pain currently. pt has pain pump and pain pills but they have not been helping. Physician History: This is a 52-year-old white male patient of Dr. Alexis who is well-known to our emergency department. He has Molaret's syndrome which is a recurrent benign meningitis. This recurrent episode began approximately 2 days ago and was worsening. He had been here in the emergency department for admission and treatment every month. However he was able to go a bit longer. His last visit here was on 03/07/2022 with the same issue. Patient typically requires admission with intravenous fluid hydration, Solu-Cortef infusion, Dilaudid ENTERPRISE APPLICATION ARCHITECT pump, intravenous acyclovir and intravenous Rocephin. Patient denies chest pain. He denies shortness of breath. He has no abdominal pain. He does have a history of hypertension. Timing/Duration: day(s) (2 days) Severity: moderate Associated Symptoms: nausea, headaches, other (Neck pain), No vomiting, No abdominal pain, No shortness of breath, No chest pain, No fever Allergies/Adverse Reactions: pregabalin [From Lyrica] Adverse Reaction (Severe, Verified 05/02/22 18:15) Hives SOB hives azithromycin [From Zmax] Adverse Reaction (Mild, Verified 05/02/22 18:15) vomiting Home Medications: Aspirin 81 mg PO DAILY 01/24/14 [History] Enalapril Maleate 10 mg [Vasotec 10 MG] 20 mg PO HS 01/24/14 [History] Mineral Oil 30 ml PO TID 01/24/14 [History] Multivitamin [Multi-Vitamin Daily] 1 each PO DAILY 01/24/14 [History] Testosterone Cypionate 1.25 ml IM UD 10/09/14 [History] Duloxetine HCl [Cymbalta] 60 mg PO BID 04/23/15 [History] Prednisone 10 mg [Deltasone 10 mg] 15 mg PO DAILY 04/23/15 [History] Morphine Sulfate/Pf [Morphine 10 mg/10 ml Vial] 15.6 mg IJ DAILY 07/29/19 [History] L.acidoph,Paracasei, B.lactis [Probiotic] 2 each PO DAILY 10/23/19 [History] Metformin HCl 500 mg [Glucophage 500 MG] 1,000 mg PO BIDWM 04/20/20 [History] Atorvastatin Calcium [Lipitor] 10 mg PO HS 01/06/22 [History] Morphine Sulfate Ir 15 mg [Msir 15 mg] 15 mg PO Q6H PRN PRN 02/07/22 [History] Esomeprazole Magnesium [Nexium] 20 mg PO HS 03/06/22 [History] Hx Tetanus, Diphtheria Vaccination/Date Given: Yes Hx Influenza Vaccination/Date Given: No Hx Pneumococcal Vaccination/Date Given: Yes Immunizations Up to Date: Yes Travel Risk - International Travel Have you traveled outside of the country in past 3 weeks: No - Coronavirus Screening Are you exhibiting any of the following symptoms?: No Close contact with a COVID-19 positive Pt in past 14-21 Days: No - Vaccine Status Have you recieved a Covid-19 vaccination: Yes [employer]: [email or web address] - Vaccination Dates Dates if Unknown: ? - Review of Systems Constitutional: No Symptoms Eyes: No Symptoms Ears, Nose, & Throat: No Symptoms Respiratory: No Symptoms Cardiac: No Symptoms Abdominal/Gastrointestinal: No Symptoms Genitourinary Symptoms: No Symptoms Musculoskeletal: Neck Pain Skin: No Symptoms Neurological: Headache Psychological: No Symptoms Endocrine: No Symptoms Hematologic/Lymphatic: No Symptoms Immunological/Allergic: No Symptoms All Other Systems: Reviewed and Negative - Past Medical History Pertinent Past Medical History: Yes Neurological History: Other ENT History: No Pertinent History Cardiac History: Hypertension Respiratory History: No Pertinent History Endocrine Medical History: No Pertinent History Musculoskeletal History: No Pertinent History GI Medical History: Other History: No Pertinent History Psycho-Social History: No Pertinent History Male Reproductive Disorders: No Pertinent History Other Medical History: Mollaret's, spleen removed - Past Surgical History Past Surgical History: Yes Neuro Surgical History: No Pertinent History Cardiac: No Pertinent History Respiratory: No Pertinent History Gastrointestinal: Other Genitourinary: No Pertinent History Musculoskeletal: No Pertinent History Male Surgical History: Vasectomy Other Surgical History: spleen removed, apendectomy, 2 nasal surgeries - Social History Smoking Status: Never smoker Exposure to second hand smoke: No Alcohol Use: None Drug Use: none Patient Lives Alone: Yes Significant Family History: no pertinent family hx - Nursing Vital Signs Nursing Vital Signs: Initial Vital Signs Temperature 97.1 F 05/02/22 18:16 Pulse Rate 100 H 05/02/22 18:16 Respiratory Rate 18 05/02/22 18:16 Blood Pressure 161/105 05/02/22 18:16 O2 Sat by Pulse Oximetry 96 05/02/22 18:16 Pain Scale Pain Intensity 9 - Physical Exam General Appearance: moderate distress, alert, anxiety Eye Exam: PERRL/EOMI, eyes nml inspection Ears, Nose, Throat Exam: normal ENT inspection, moist mucous membranes Neck Exam: full range of motion, midline tenderness, other (Pain with movement of neck) Respiratory Exam: normal breath sounds, lungs clear, airway intact, No chest tenderness, No respiratory distress Cardiovascular Exam: regular rate/rhythm, normal heart sounds, normal peripheral pulses Gastrointestinal/Abdomen Exam: soft, normal bowel sounds, No tenderness Rectal Exam: not done Back Exam: normal inspection, normal range of motion, No CVA tenderness Extremity Exam: normal inspection, normal range of motion, pelvis stable Neurologic Exam: alert, oriented x 3, cooperative, charge weigher II-XII nml as tested, normal mood/affect, nml cerebellar function, nml station & gait, sensation nml Skin Exam: normal color, warm, dry Lymphatic Exam: No adenopathy SpO2 Interpretation: normal SpO2: 96 O2 Delivery: Room Air - Course Nursing assessment & vital signs reviewed: Yes Ordered Tests: Active Orders 24 hr Category Date Time Status IV Insertion STAT Care 05/02/22 18:17 Active BLOOD CULTURE Stat Lab 05/02/22 18:20 Ordered CBC W DIFF Stat Lab 05/02/22 18:20 Received CMP Stat Lab 05/02/22 18:20 Received UA W/RFX CULTURE Stat Lab 05/02/22 18:21 Received Medication Summary Generic Name Dose Route Start Last Admin Trade Name Freq PRN Reason Stop Dose Admin Sodium Chloride 1,000 mls @ 100 mls/hr 05/02/22 18:30 05/02/22 18:26 Sodium Chloride 0.9% 1000 Ml IV 06/01/22 18:29 100 mls/hr .Q10H GLENNA Administration Ceftriaxone Sodium/Dextrose 1 g in 50 mls @ 100 mls/hr 05/02/22 18:18 05/02/22 18:32 Rocephin 1 Gm-D5w 50 Ml Bag IV 05/02/22 18:47 100 mls/hr STAT STA 100 mls/hr Administration Acyclovir Sodium 1,000 mg/ 250 mls @ 166.667 mls/hr 05/02/22 18:30 Sodium Chloride IV 06/01/22 18:29 Q8H GLENNA Discontinued Medications Generic Name Dose Route Start Last Admin Trade Name [place] PRN Reason Stop Dose Admin Hydrocortisone Sodium Succinate 100 mg 05/02/22 18:18 05/02/22 18:32 Hydrocortisone Sod Succinate 100 Mg/Vial Vial IV 05/02/22 18:19 100 mg STAT ONE Administration Hydrocortisone Sodium Succinate Confirm 05/02/22 18:23 Hydrocortisone Sod Succinate 100 Mg/Vial Vial Administered 05/02/22 18:24 Dose 100 mg .ROUTE .STK-MED ONE Hydromorphone HCl 2 mg 05/02/22 18:17 05/02/22 18:30 Hydromorphone 1 Mg/1ml Inj 1 Mg/Ml Syringe IV 05/02/22 18:18 2 mg STAT ONE Administration Hydromorphone HCl Confirm 05/02/22 18:24 Hydromorphone 1 Mg/1ml Inj 1 Mg/Ml Syringe Administered 05/02/22 18:25 Dose 2 mg .ROUTE .STK-MED ONE Ceftriaxone Sodium/Dextrose Confirm 05/02/22 18:24 Rocephin 1 Gm-D5w 50 Ml Bag Administered 05/02/22 18:25 Dose 1 g in 50 mls @ ud IV .STK-MED ONE Ondansetron HCl 4 mg 05/02/22 18:19 05/02/22 18:27 Ondansetron Hcl 4 Mg/2 Ml Vial IV 05/02/22 18:20 4 mg STAT ONE Administration Ondansetron HCl Confirm 05/02/22 18:23 Ondansetron Hcl 4 Mg/2 Ml Vial Administered 05/02/22 18:24 Dose 4 mg .ROUTE .STK-MED ONE - Progress Progress: pain not gone completely, re-examined Progress Note: 05/02/22 18:37 Medical decision making: This patient typically is admitted into the hospital and given IV hydration, IV Solu-Cortef, Dilaudid ENTERPRISE APPLICATION ARCHITECT pump, and intravenous acyclovir. I spoke with Dr. Casanova who knows this patient and is covering for Dr. Alexis. We will admit him to the hospital. Discussed with : Bernadette Counseled pt/family regarding: lab results, diagnosis - Departure Departure Disposition: In-patient Admission Clinical Impression: Mollaret's meningitis Condition: Stable Critical Care Time: No Referrals: ANN ALEXIS MD [Primary Care Provider] - Follow up/PCP as directed
[2022-05-02 18:47] LABS: Urine Cultured Indicated? NO
[2022-05-02 18:50] LABS: ALBUMIN 4.1 g/dL (3.5-5.0); ALKALINE PHOSPHATASE 86 U/L (38-126); ANION GAP 14.6 MEQ/L (5-15); BLOOD UREA NITROGEN 18 mg/dL (9-20); CHLORIDE 101 mmol/L (98-107); Calcium 9.1 mg/dL (8.4-10.2); Carbon Dioxide 28 mmol/L (22-30); Creatinine 1 0.93 mg/dL (0.66-1.25); EST GLOMERULAR FILTRATION RATE > 60.0 ML/MIN; Glucose 155 mg/dL (74-106); Potassium 4.3 mmol/L (3.5-5.1); SGOT/AST 36 U/L (17-59); SGPT/ALT 34 U/L (0-50); SODIUM 139 mmol/L (137-145); Total Protein 7.2 g/dL (6.3-8.2)
[2022-05-02 19:48] LABS: INFLUENZA A NEGATIVE (NEGATIVE); INFLUENZA B NEGATIVE (NEGATIVE); RESPIRATORY SYNCTIAL VIRUS NEGATIVE (Negative); SARS-CoV-2 Xpert Express NEGATIVE (NEGATIVE)
[2022-05-02] MEDS ORDERED: TYLENOL 325 MG PO PRN (20:14)
[2022-05-02] MEDS ORDERED: Zofran 4 MG/2 ML VIAL IV PRN (20:14)
[2022-05-02] MEDS: DILAUDID 1 MG/1ML PCA IV PRN (20:47)
[2022-05-02] MEDS: solu-CORTEF 100MG IV SCH (20:56)
[2022-05-02] MEDS: ZOVIRAX IV SCH (22:22)
[2022-05-02] MEDS: SODIUM CHLORIDE 0.9% IV SCH (22:22)
[2022-05-02] MEDS: Protonix 20MG Tablet PO SCH (22:32)
[2022-05-02] MEDS: Zocor 10MG PO SCH (22:32)
[2022-05-02] MEDS: Vasotec 10 MG PO SCH (22:32)
[2022-05-02] MEDS: Cymbalta 30 MG Capsule PO SCH (22:33)
[2022-05-03] MEDS: MSIR 15 MG PO SCH ×2 (00:02→06:05)
[2022-05-03] MEDS: Sodium Chloride 0.9% 1000 ML 1,000 ML IV SCH ×3 (00:04→19:13)
[2022-05-03] MEDS ORDERED: Zovirax INJ IV ONE (04:26)
[2022-05-03] MEDS ORDERED: Sodium Chloride 0.9% 250 ML 250 ML IV ONE (04:28)
[2022-05-03] MEDS: SODIUM CHLORIDE 0.9% IV SCH ×3 (04:41→21:08)
[2022-05-03] MEDS: solu-CORTEF 100MG IV SCH ×3 (04:41→21:08)
[2022-05-03] MEDS: ZOVIRAX IV SCH ×3 (04:41→21:08)
[2022-05-03 06:37] LABS: Absolute Neutrophil Ct (ANC) 5.87 x10^3/uL (1.4-6.9); Basophil (Absolute #) 0.06 x10^3/uL (0-0.4); Eosinophil % 5.3 % (0.00-5.0); Eosinophil (Absolute #) 0.56 x10^3/uL (0-0.5); Hemoglobin 12.7 g/dL (12.5-18.0); Lymphocyte (Absolute #) 3.21 x10^3/uL (1.0-4.6); Lymphocytes % 30.3 % (24.0-44.0); Mean Cell Volume 89.7 fL (78-100); Mean Corpuscular Hemoglobin 28.5 pg (26-32); Mean Corpuscular Hgb Concent. 31.8 g/dL (32-36); Monocyte (Absolute #) 0.82 x10^3/uL (0.0-1.3); Monocytes % 7.8 % (0.0-12.0); Neutrophil % 55.4 % (36.0-66.0); Platelet Count 358 x10^3/uL (150-450); Red Blood Count 4.46 x10^6/uL (4.1-5.6); Red Cell Distribution Width 16.3 % (11.5-14.0); White Blood Count 10.6 x10^3/uL (4.0-10.5)
[2022-05-03 07:01] LABS: ALBUMIN 3.5 g/dL (3.5-5.0); ALKALINE PHOSPHATASE 83 U/L (38-126); ANION GAP 11.9 MEQ/L (5-15); BLOOD UREA NITROGEN 13 mg/dL (9-20); CHLORIDE 101 mmol/L (98-107); Calcium 8.3 mg/dL (8.4-10.2); Carbon Dioxide 26 mmol/L (22-30); Creatinine 1 0.85 mg/dL (0.66-1.25); EST GLOMERULAR FILTRATION RATE > 60.0 ML/MIN; Glucose 140 mg/dL (74-106); Potassium 3.9 mmol/L (3.5-5.1); SGOT/AST 25 U/L (17-59); SGPT/ALT 27 U/L (0-50); SODIUM 136 mmol/L (137-145); Total Protein 6.3 g/dL (6.3-8.2)
[2022-05-03] MEDS ORDERED: NON-FORMULARY ITEM (Multivitamin [Multi-Vitamin Daily] 1 EACH Tablet) PO SCH (10:00)
[2022-05-03] MEDS ORDERED: NON-FORMULARY ITEM (Aspirin [Aspirin] 81 MG Tablet) PO SCH (10:00)
[2022-05-03] MEDS ORDERED: Ms Contin 15 MG PO SCH (10:00)
[2022-05-03] MEDS ORDERED: MORPHINE SULFATE 1 MG/ML IJ SCH (10:00)
[2022-05-03] MEDS ORDERED: NON-FORMULARY ITEM (L.Acidoph,Paracasei, B.Lactis [Probiotic] 1 EACH Capsule) PO SCH (10:00)
[2022-05-03] MEDS ORDERED: MINERAL OIL PO SCH (10:00)
[2022-05-03] MEDS: Glucophage 500 MG PO SCH ×2 (11:09→16:54)
[2022-05-03] MEDS: Acidophilus TABLET PO SCH (11:09)
[2022-05-03] MEDS: Cymbalta 30 MG Capsule PO SCH ×2 (11:10→21:07)
[2022-05-03] MEDS: ECOTRIN 81 MG PO SCH (11:10)
[2022-05-03] MEDS: THERAGRAN MULTIVITAMIN PO SCH (11:11)
[2022-05-03] MEDS: MINERAL OIL PO SCH ×3 (11:12→21:08)
[2022-05-03] MEDS: PATIENT OWN MEDICATION IJ SCH (11:12)
[2022-05-03] MEDS: ROCEPHIN 1 Gm-D5w 50 ml Bag** 1 G/50 ML IVPB IV SCH (11:28)
[2022-05-03] MEDS: Ms Contin 15 MG PO SCH ×3 (11:32→23:28)
[2022-05-03] MEDS: Zocor 10MG PO SCH (21:08)
[2022-05-03] MEDS: Protonix 20MG Tablet PO SCH (21:08)
[2022-05-03] MEDS: Vasotec 10 MG PO SCH (21:08)
[2022-05-04] MEDS: DILAUDID 1 MG/1ML PCA IV PRN (02:35)
[2022-05-04] MEDS: Sodium Chloride 0.9% 1000 ML 1,000 ML IV SCH ×2 (04:31→18:52)
[2022-05-04] MEDS: ZOVIRAX IV SCH ×3 (05:25→21:40)
[2022-05-04] MEDS: SODIUM CHLORIDE 0.9% IV SCH ×3 (05:25→21:40)
[2022-05-04] MEDS: Ms Contin 15 MG PO SCH ×4 (05:25→23:51)
[2022-05-04] MEDS: solu-CORTEF 100MG IV SCH ×3 (05:25→21:39)
[2022-05-04 06:00] LABS: Hemoglobin 12.6 g/dL (12.5-18.0); Mean Cell Volume 89.7 fL (78-100); Mean Corpuscular Hgb Concent. 32.3 g/dL (32-36); Mean Platelet Volume 10.2 fL (7.5-11.0); Platelet Count 361 x10^3/uL (150-450); Red Blood Count 4.35 x10^6/uL (4.1-5.6); Red Cell Distribution Width 16.6 % (11.5-14.0); White Blood Count 10.5 x10^3/uL (4.0-10.5)
[2022-05-04 06:14] LABS: ALBUMIN 3.4 g/dL (3.5-5.0); ALKALINE PHOSPHATASE 82 U/L (38-126); ANION GAP 12.1 MEQ/L (5-15); BLOOD UREA NITROGEN 9 mg/dL (9-20); CHLORIDE 104 mmol/L (98-107); Calcium 8.5 mg/dL (8.4-10.2); Carbon Dioxide 29 mmol/L (22-30); Creatinine 1 0.79 mg/dL (0.66-1.25); EST GLOMERULAR FILTRATION RATE > 60.0 ML/MIN; Glucose 203 mg/dL (74-106); Potassium 4.3 mmol/L (3.5-5.1); SGOT/AST 26 U/L (17-59); SGPT/ALT 26 U/L (0-50); SODIUM 141 mmol/L (137-145); Total Protein 6.2 g/dL (6.3-8.2)
[2022-05-04] MEDS: Glucophage 500 MG PO SCH ×2 (08:36→17:22)
[2022-05-04] MEDS: ROCEPHIN 1 Gm-D5w 50 ml Bag** 1 G/50 ML IVPB IV SCH (09:43)
[2022-05-04] MEDS: Acidophilus TABLET PO SCH (09:45)
[2022-05-04] MEDS: Cymbalta 30 MG Capsule PO SCH ×2 (09:45→21:39)
[2022-05-04] MEDS: ECOTRIN 81 MG PO SCH (09:45)
[2022-05-04] MEDS: THERAGRAN MULTIVITAMIN PO SCH (09:45)
[2022-05-04] MEDS: PATIENT OWN MEDICATION IJ SCH (09:46)
[2022-05-04] MEDS: MINERAL OIL PO SCH ×3 (09:46→21:39)
[2022-05-04] MEDS: Vasotec 10 MG PO SCH (21:39)
[2022-05-04] MEDS: Protonix 20MG Tablet PO SCH (21:39)
[2022-05-04] MEDS: Zocor 10MG PO SCH (21:40)
[2022-05-05] MEDS: Ms Contin 15 MG PO SCH ×3 (05:49→17:41)
[2022-05-05] MEDS: SODIUM CHLORIDE 0.9% IV SCH ×3 (05:50→21:21)
[2022-05-05] MEDS: ZOVIRAX IV SCH ×3 (05:50→21:21)
[2022-05-05] MEDS: solu-CORTEF 100MG IV SCH ×3 (05:50→21:22)
[2022-05-05] MEDS: Glucophage 500 MG PO SCH ×2 (08:06→17:41)
[2022-05-05] MEDS: Sodium Chloride 0.9% 1000 ML 1,000 ML IV SCH ×3 (08:06→20:17)
[2022-05-05] MEDS: DILAUDID 1 MG/1ML PCA IV PRN ×2 (08:55→18:56)
[2022-05-05] MEDS: ECOTRIN 81 MG PO SCH (09:01)
[2022-05-05] MEDS: Cymbalta 30 MG Capsule PO SCH ×2 (09:01→21:21)
[2022-05-05] MEDS: Acidophilus TABLET PO SCH (09:01)
[2022-05-05] MEDS: MINERAL OIL PO SCH ×3 (09:01→21:22)
[2022-05-05] MEDS: THERAGRAN MULTIVITAMIN PO SCH (09:01)
[2022-05-05] MEDS: ROCEPHIN 1 Gm-D5w 50 ml Bag** 1 G/50 ML IVPB IV SCH (09:02)
--- NOTE | 2022-05-05 12:58 | PCM.NOTE ---
Date and Time: 05/05/22 1255 Subjective Assessment: Pt continues to have PARK. López po. A little improved over admission but not substantially. Says that recently his episodes have started taking longer to resolve; he has discussed with neurology and that is felt to be the usual natural history of his disorder. - Review of Systems Constitutional: No Fever Abdominal/Gastrointestinal: No Vomiting Neurological: Headache Objective Exam General Appearance: no apparent distress, alert, obese Neurologic Exam: oriented x 3, cooperative Skin Exam: normal color, warm, dry, No rash Eye Exam: eyes nml inspection Ears, Nose, Throat Exam: moist mucous membranes Neck Exam: normal inspection Respiratory Exam: normal breath sounds, lungs clear, No crackles/rales, No rhonchi, No wheezing Cardiovascular Exam: regular rate/rhythm, normal heart sounds, No murmur Gastrointestinal/Abdomen Exam: soft, normal bowel sounds, No tenderness, No distention, No mass, No guarding, No rebound Extremity Exam: normal inspection, No pedal edema, No swelling OBJECTIVE DATA Vital Signs: Vital Signs - 24 hr Temp Pulse Resp BP Pulse Ox 05/05/22 11:59 98.5 F 79 19 125/60 95 05/05/22 08:55 14 99 05/05/22 07:39 95 05/05/22 07:37 98 F 65 17 141/90 99 05/05/22 06:00 16 97 05/05/22 04:00 97.2 F 64 18 124/66 98 05/04/22 23:41 97.1 F 78 16 136/87 98 05/04/22 19:16 97.1 F 74 18 133/81 99 05/04/22 19:10 99 05/04/22 16:00 97.3 F 76 19 130/76 94 L Pain Assessment - Last Documented Pain Intensity 8 Pain Scale Used 0-10 Pain Scale Intake and Output: Intake & Output 05/03/22 05/04/22 05/05/22 05/06/22 11:59 11:59 11:59 11:59 Intake Total 1597 4864 4996 Output Total 2659 5230 5050 Balance -1053 -196 -54 Weight 110 kg 110.3 kg 110.5 kg Assessment/Plan (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 Onset Date: ~12/31/18 Assessment & Plan: mild improvement. May need several more days' stay to improve enough to return home. Continue current care. Code(s): G03.2 - BENIGN RECURRENT MENINGITIS [MOLLARET]
[2022-05-05] MEDS: PATIENT OWN MEDICATION IJ SCH (15:07)
[2022-05-05] MEDS: Zocor 10MG PO SCH (21:22)
[2022-05-05] MEDS: Vasotec 10 MG PO SCH (21:22)
[2022-05-05] MEDS: Protonix 20MG Tablet PO SCH (21:22)
[2022-05-06] MEDS: Ms Contin 15 MG PO SCH ×5 (01:15→23:51)
[2022-05-06] MEDS: ZOVIRAX IV SCH ×3 (05:11→22:16)
[2022-05-06] MEDS: solu-CORTEF 100MG IV SCH ×3 (05:11→22:10)
[2022-05-06] MEDS: SODIUM CHLORIDE 0.9% IV SCH ×3 (05:11→22:16)
[2022-05-06] MEDS: DILAUDID 1 MG/1ML PCA IV PRN ×2 (05:51→21:18)
[2022-05-06 06:08] LABS: Absolute Neutrophil Ct (ANC) 9.14 x10^3/uL (1.4-6.9); Basophil (Absolute #) 0.09 x10^3/uL (0-0.4); Eosinophil % 1.2 % (0.00-5.0); Eosinophil (Absolute #) 0.18 x10^3/uL (0-0.5); Hematocrit 40.7 % (42-50); Hemoglobin 13.2 g/dL (12.5-18.0); Lymphocytes % 30.7 % (24.0-44.0); Mean Cell Volume 88.1 fL (78-100); Mean Corpuscular Hemoglobin 28.6 pg (26-32); Mean Corpuscular Hgb Concent. 32.4 g/dL (32-36); Mean Platelet Volume 9.4 fL (7.5-11.0); Monocyte (Absolute #) 1.12 x10^3/uL (0.0-1.3); Monocytes % 7.3 % (0.0-12.0); Neutrophil % 59.7 % (36.0-66.0); Platelet Count 364 x10^3/uL (150-450); Red Blood Count 4.62 x10^6/uL (4.1-5.6); Red Cell Distribution Width 16.6 % (11.5-14.0); White Blood Count 15.3 x10^3/uL (4.0-10.5)
[2022-05-06 07:09] LABS: ALBUMIN 3.4 g/dL (3.5-5.0); ALKALINE PHOSPHATASE 78 U/L (38-126); ANION GAP 8.7 MEQ/L (5-15); BLOOD UREA NITROGEN 10 mg/dL (9-20); CHLORIDE 103 mmol/L (98-107); Calcium 8.3 mg/dL (8.4-10.2); Carbon Dioxide 32 mmol/L (22-30); EST GLOMERULAR FILTRATION RATE > 60.0 ML/MIN; Glucose 107 mg/dL (74-106); SGOT/AST 27 U/L (17-59); SGPT/ALT 29 U/L (0-50); SODIUM 139 mmol/L (137-145); Total Protein 6.1 g/dL (6.3-8.2)
[2022-05-06] MEDS: Glucophage 500 MG PO SCH ×2 (07:35→17:28)
[2022-05-06] MEDS: Sodium Chloride 0.9% 1000 ML 1,000 ML IV SCH ×2 (07:36→19:42)
--- NOTE | 2022-05-06 08:37 | PCM.NOTE ---
Date and Time: 05/06/22833 Subjective Assessment: Feeling a little better, but doesn't think he's ready to go home yet. López po. PARK is persistent, 05/11. He did sleep better last night. - Review of Systems Constitutional: No Fever Neurological: Headache Objective Exam General Appearance: no apparent distress, alert Neurologic Exam: oriented x 3, cooperative Skin Exam: normal color, warm, dry, No rash Eye Exam: eyes nml inspection Ears, Nose, Throat Exam: moist mucous membranes Neck Exam: normal inspection Respiratory Exam: normal breath sounds, lungs clear, No crackles/rales, No rhonchi, No wheezing Cardiovascular Exam: regular rate/rhythm, normal heart sounds, No murmur Gastrointestinal/Abdomen Exam: soft, normal bowel sounds, No tenderness, No mass, No guarding, No rebound Extremity Exam: normal inspection, No pedal edema, No swelling OBJECTIVE DATA Vital Signs: Vital Signs - 24 hr Temp Pulse Resp BP Pulse Ox 05/06/22 07:39 97.9 F 72 16 139/91 100 05/06/22 05:51 18 98 05/06/22 04:00 97.1 F 59 L 16 158/85 100 05/05/22 23:53 97.1 F 68 16 124/76 99 05/05/22 22:56 18 05/05/22 19:30 97.7 F 73 16 119/67 100 05/05/22 19:18 96 05/05/22 18:56 16 99 05/05/22 15:40 98.5 F 80 17 131/80 99 05/05/22 11:59 98.5 F 79 19 125/60 95 05/05/22 08:55 14 99 Pain Assessment - Last Documented Pain Intensity 7 Pain Scale Used 0-10 Pain Scale Intake and Output: Intake & Output 05/03/22 05/04/22 05/05/22 05/06/22 11:59 11:59 11:59 11:59 Intake Total 1597 4454 4996 4072 Output Total 2650 4650 5050 5400 Balance -1053 - Weight 110 kg 110.3 kg 110.5 kg 110.3 kg Lab Results: Lab Results-Last 24 Hours 05/06/22 05/06/22 Range/Units 06:02 06:02 WBC 15.3 H (4.0-10.5) x10^3/uL RBC 4.62 (4.1-5.6) x10^6/uL Hgb 13.2 (12.5-18.0) g/dL Hct 40.7 L (42-50) % MCV 88.1 (78-100) fL MCH 28.6 (26-32) pg MCHC 32.4 (32-36) g/dL RDW 16.6 H (11.5-14.0) % Plt Count 364 (150-450) x10^3/uL MPV 9.4 (7.5-11.0) fL Gran % 59.7 (36.0-66.0) % Immature Gran % (Auto) 0.5 H (0.00-0.4) % Nucleat RBC Rel Count 0.0 (0.00-0.1) % Eos # (Auto) 0.18 (0-0.5) x10^3/uL Immature Gran # (Auto) 0.08 H (0.00-0.03) x10^3u/L Absolute Lymphs (auto) 4.70 H (1.0-4.6) x10^3/uL Absolute Monos (auto) 1.12 (0.0-1.3) x10^3/uL Absolute Nucleated RBC 0.00 (0.00-0.01) x10^3u/L Lymphocytes % 30.7 (24.0-44.0) % Monocytes % 7.3 (0.0-12.0) % Eosinophils % 1.2 (0.00-5.0) % Basophils % 0.6 (0.0-0.4) % Absolute Granulocytes 9.14 H (1.4-6.9) x10^3/uL Basophils # 0.09 (0-0.4) x10^3/uL Sodium 139 (137-145) mmol/L Potassium 4.0 (3.5-5.1) mmol/L Chloride 103 (98-107) mmol/L Carbon Dioxide 32 H (22-30) mmol/L Anion Gap 8.7 (5-15) MEQ/L BUN 10 (9-20) mg/dL Creatinine 0.70 (0.66-1.25) mg/dL Estimated GFR > 60.0 ML/MIN Glucose 107 H (74-106) mg/dL Calcium 8.3 L (8.4-10.2) mg/dL Total Bilirubin 0.40 (0.2-1.3) mg/dL AST 27 (17-59) U/L ALT 29 (0-50) U/L Alkaline Phosphatase 78 (38-126) U/L Serum Total Protein 6.1 L (6.3-8.2) g/dL Albumin 3.4 L (3.5-5.0) g/dL Assessment/Plan (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 Onset Date: ~11/01/18 Assessment & Plan: Improving, albeit slowly. Likely home tomorrow. Code(s): G03.2 - BENIGN RECURRENT MENINGITIS [MOLLARET] (2) DVT prophylaxis Current Visit: Yes Status: Acute Code(s): Z29.9 - ENCOUNTER FOR PROPHYLACTIC MEASURES, UNSPECIFIED
[2022-05-06] MEDS: ECOTRIN 81 MG PO SCH (09:09)
[2022-05-06] MEDS: PATIENT OWN MEDICATION IJ SCH (09:09)
[2022-05-06] MEDS: Acidophilus TABLET PO SCH (09:09)
[2022-05-06] MEDS: THERAGRAN MULTIVITAMIN PO SCH (09:09)
[2022-05-06] MEDS: Cymbalta 30 MG Capsule PO SCH ×2 (09:09→22:09)
[2022-05-06] MEDS: MINERAL OIL PO SCH ×3 (09:09→22:09)
[2022-05-06] MEDS: ROCEPHIN 1 Gm-D5w 50 ml Bag** 1 G/50 ML IVPB IV SCH (10:21)
[2022-05-06] MEDS: Zocor 10MG PO SCH (22:10)
[2022-05-06] MEDS: Vasotec 10 MG PO SCH (22:11)
[2022-05-06] MEDS: Protonix 20MG Tablet PO SCH (22:11)
[2022-05-07] MEDS: solu-CORTEF 100MG IV SCH (06:03)
[2022-05-07] MEDS: Ms Contin 15 MG PO SCH (06:03)
[2022-05-07] MEDS: ZOVIRAX IV SCH (06:13)
[2022-05-07] MEDS: SODIUM CHLORIDE 0.9% IV SCH (06:13)
[2022-05-07 07:31] VITALS: BP 143/82; PULSE 74; O2SAT 98
[2022-05-07] MEDS: Glucophage 500 MG PO SCH (07:42)
[2022-05-07] MEDS: Cymbalta 30 MG Capsule PO SCH (09:21)
[2022-05-07] MEDS: THERAGRAN MULTIVITAMIN PO SCH (09:21)
[2022-05-07] MEDS: MINERAL OIL PO SCH (09:22)
[2022-05-07] MEDS: ECOTRIN 81 MG PO SCH (09:22)
[2022-05-07] MEDS: Acidophilus TABLET PO SCH (09:22)
[2022-05-07] MEDS: PATIENT OWN MEDICATION IJ SCH (09:23)
[2022-05-07] MEDS: DILAUDID 1 MG/1ML PCA IV PRN (09:37)
--- NOTE | 2022-05-07 09:51 | PCM.DS ---
Discharge Summary Date of Admission: 05/02/22 20:13 Admitting Physician: SHERWIN MILLER Primary Care Provider: ANN ALEXIS Allergies Allergies pregabalin [From Lyrica] Adverse Reaction (Severe, Verified 05/02/22 20:19) Hives SOB hives azithromycin [From Zmax] Adverse Reaction (Mild, Verified 05/02/22 20:19) vomiting Hospital Summary - Hospital Course Hospital Course: patient admitted with intractable headache and neck pain with nausea and vomiting, typical for flare of chronic aseptic meningitis. 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 tolerating po and doing much better, back to his baseline now. - Vitals & Intake/Output Vital Signs: Vital Signs Temperature 97.5 F 05/07/22 07:31 Pulse Rate 74 05/07/22 07:31 Respiratory Rate 16 05/07/22 07:31 Blood Pressure 143/82 05/07/22 07:31 O2 Sat by Pulse Oximetry 98 05/07/22 09:37 Intake & Output: Intake & Output 05/04/22 05/05/22 05/06/22 05/07/22 11:59 11:59 11:59 11:59 Intake Total 4454 4996 4072 3791 Output Total 4650 5050 6000 4950 Balance -173 -54 -1928 -1519 Weight 110.3 kg 110.5 kg 110.3 kg - Lab Result Diagrams: 05/06/22 06:02 05/06/22 06:02 Micro Results-Entire Visit: Microbiology 05/02/22 19:00 Blood Culture Gram Stain - Final Blood Not Reportable Blood Culture - Final NO GROWTH 05/02/22 18:20 Blood Culture Gram Stain - Final Blood Not Reportable Blood Culture - Final NO GROWTH Discharge Exam General Appearance: no apparent distress, obese Neurologic Exam: alert, oriented x 3 Neck Exam: normal inspection, non-tender, supple Respiratory Exam: normal breath sounds, lungs clear, No respiratory distress Cardiovascular Exam: regular rate/rhythm, normal heart sounds Gastrointestinal/Abdomen Exam: soft, No tenderness, No mass Extremity Exam: normal inspection, normal range of motion Skin Exam: normal color, warm, dry Final Diagnosis/Problem List - Final Discharge Diagnosis/Problem (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 Onset Date: ~11/01/18 Code(s): G03.2 - BENIGN RECURRENT MENINGITIS [MOLLARET] (2) Cephalgia Current Visit: No Status: Acute Onset Date: ~11/01/18 Code(s): R51 - HEADACHE * DO NOT USE * (3) Type 2 diabetes mellitus Current Visit: No Status: Chronic - Discharge Disposition: Home, Self-Care Condition: Stable Prescriptions: New Acyclovir 800 mg [Acyclovir] 800 mg PO TID #21 tablet Prednisone 20 mg [Deltasone 20 mg] 20 mg PO UD #18 tablet Continue Enalapril Maleate 10 mg [Vasotec 10 MG] 20 mg PO HS Multivitamin [Multi-Vitamin Daily] 1 each PO DAILY Mineral Oil 30 ml PO TID Testosterone Cypionate 1.25 ml IM UD Duloxetine HCl [Cymbalta] 60 mg PO BID Prednisone 10 mg [Deltasone 10 mg] 15 mg PO DAILY Morphine Sulfate/Pf [Morphine 10 mg/10 ml Vial] 15.6 mg IJ DAILY L.acidoph,Paracasei, B.lactis [Probiotic] 2 each PO DAILY Metformin HCl 500 mg [Glucophage 500 MG] 1,000 mg PO BIDWM Atorvastatin Calcium [Lipitor] 10 mg PO HS Morphine Sulfate Ir 15 mg [Msir 15 mg] 15 mg PO Q6H Esomeprazole Magnesium [Nexium] 20 mg PO HS No Action Aspirin 81 mg PO DAILY Follow up with: ANN ALEXIS MD [Primary Care Provider] -
== END 2022-05-07 10:00 | disposition home or self-care (01) | DRG 76 ==
LOC: ED 18:08 → MED SURG 20:13
PROVIDERS: ADMIT Family Medicine; ATTEND Family Medicine
DX: G03.2 Benign recurrent meningitis [Mollaret] (principal); I10 Essential (primary) hypertension; Z79.899 Other long term (current) drug therapy; Z20.828 Contact with and (suspected) exposure to other viral communicable diseases; Z29.9 Encounter for prophylactic measures, unspecified
CPT/HCPCS: 0241U; 36000; 36415; 80053; 81015; 84145; 85025; 85027; 87040; 94762; 96365; 96374; 96375; 99285; J0133; J0696; J1170; J1720; J2405; A9270-GY

== ENCOUNTER 2022-07-01 18:10 | Inpatient (IN) | payer MEDICARE, BC ==
[2022-07-01] MEDS ORDERED: Hydromorphone 1 mg/ml Injection IV ONE ×2 (21:45→23:22)
[2022-07-01] MEDS ORDERED: Zofran 4 MG/2 ML VIAL IV ONE (21:46)
[2022-07-01 21:47] LABS: Absolute Neutrophil Ct (ANC) 5.78 x10^3/uL (1.4-6.9); Eosinophil % 6.9 % (0.00-5.0); Eosinophil (Absolute #) 0.81 x10^3/uL (0-0.5); Hematocrit 45.3 % (42-50); Hemoglobin 14.6 g/dL (12.5-18.0); Lymphocyte (Absolute #) 3.86 x10^3/uL (1.0-4.6); Lymphocytes % 32.8 % (24.0-44.0); Mean Cell Volume 90.4 fL (78-100); Mean Corpuscular Hemoglobin 29.1 pg (26-32); Mean Corpuscular Hgb Concent. 32.2 g/dL (32-36); Mean Platelet Volume 10.4 fL (7.5-11.0); Monocyte (Absolute #) 1.18 x10^3/uL (0.0-1.3); Neutrophil % 49.1 % (36.0-66.0); Platelet Count 430 x10^3/uL (150-450); Red Blood Count 5.01 x10^6/uL (4.1-5.6); Red Cell Distribution Width 14.7 % (11.5-14.0); White Blood Count 11.8 x10^3/uL (4.0-10.5)
[2022-07-01] MEDS ORDERED: Zofran 4 MG/2 ML VIAL ONE (21:49)
[2022-07-01] MEDS ORDERED: Hydromorphone 1 mg/ml Injection ONE ×2 (21:49→23:45)
[2022-07-01 22:09] LABS: ALBUMIN 4.2 g/dL (3.5-5.0); ALKALINE PHOSPHATASE 78 U/L (38-126); ANION GAP 12.2 MEQ/L (5-15); BLOOD UREA NITROGEN 14 mg/dL (9-20); CHLORIDE 100 mmol/L (98-107); Calcium 8.8 mg/dL (8.4-10.2); Carbon Dioxide 27 mmol/L (22-30); Creatinine 1 0.93 mg/dL (0.66-1.25); EST GLOMERULAR FILTRATION RATE > 60.0 ML/MIN; Glucose 91 mg/dL (74-106); Potassium 4.2 mmol/L (3.5-5.1); SGOT/AST 39 U/L (17-59); SGPT/ALT 30 U/L (0-50); SODIUM 134 mmol/L (137-145); Total Protein 6.9 g/dL (6.3-8.2)
--- NOTE | 2022-07-01 23:12 | ERPHSYRPT ---
- History of Present Illness Source: patient Exam Limitations: no limitations Patient Subjective Stated Complaint: pt states he has been having neck pain radiating down back and up to head. states is a flare up of viral meningitis that he has occasionally Triage Nursing Assessment: pt alert and oriented, answers questions appro. pt ambulatory with steady gait noted. respiraitons nonlabored. skin warm and dry. p[upils equal and reactive. bilat upper and lower ext strength equal and wnl/ Physician History: 52 yo wm w frequent admits to [facility] for Mollarett's meningitis presents w his usual occipital PARK rated 9 on scale. Pain is sharp and light seem to make the pain worse. He has had nausea wo vomiting. Trauma is denied. Timing/Duration: yesterday Quality: sharpness, stabbing Head Pain Location: occipital Severity of Pain-Max: severe Severity of Pain-Current: severe Recent Head Trauma: no recent headache/trauma, frequent headaches, chronic headaches Modifying Factors: Improves With: exposure to light Associated Symptoms: nausea/vomiting, sensitive to light, No confusion, No dizziness, No fatigue, No facial pain, No fever/chills, No flushing, No light- headedness, No loss of consciousness, No nasal congestion, No nasal drainage, No neck pain, No numbness in legs/feet, No rash, No sweating, No scotoma, No seizures, No sinus infection, No speech problems, No stiff neck, No trouble walking, No vision changes, No visual disturbance, No weakness Previous symptoms: same symptoms as today Allergies/Adverse Reactions: pregabalin [From Lyrica] Adverse Reaction (Severe, Verified 07/01/22 19:54) Hives SOB hives azithromycin [From Zmax] Adverse Reaction (Mild, Verified 07/01/22 19:54) vomiting Home Medications: Aspirin 81 mg PO DAILY 01/24/14 [History] Enalapril Maleate 10 mg [Vasotec 10 MG] 20 mg PO HS 01/24/14 [History] Mineral Oil 30 ml PO TID 01/24/14 [History] Multivitamin [Multi-Vitamin Daily] 1 each PO DAILY 01/24/14 [History] Testosterone Cypionate 1.25 ml IM UD 10/09/14 [History] Duloxetine HCl [Cymbalta] 60 mg PO BID 04/23/15 [History] Prednisone 10 mg [Deltasone 10 mg] 15 mg PO DAILY 04/23/15 [History] Morphine Sulfate/Pf [Morphine 10 mg/10 ml Vial] 15.6 mg IJ DAILY 07/29/19 [History] L.acidoph,Paracasei, B.lactis [Probiotic] 2 each PO DAILY 10/23/19 [History] Metformin HCl 500 mg [Glucophage 500 MG] 1,000 mg PO BIDWM 04/20/20 [History] Atorvastatin Calcium [Lipitor] 10 mg PO HS 01/06/22 [History] Morphine Sulfate Ir 15 mg [Msir 15 mg] 15 mg PO Q6H 02/07/22 [History] Omeprazole 20 mg PO HS 07/01/22 [History] Hx Tetanus, Diphtheria Vaccination/Date Given: Yes (february 2016) Hx Influenza Vaccination/Date Given: No Hx Pneumococcal Vaccination/Date Given: Yes Immunizations Up to Date: Yes Travel Risk - International Travel Have you traveled outside of the country in past 3 weeks: No - Coronavirus Screening Are you exhibiting any of the following symptoms?: No Close contact with a COVID-19 positive Pt in past 14-21 Days: No - Vaccine Status Have you recieved a Covid-19 vaccination: Yes 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 - Review of Systems Constitutional: No Symptoms Eyes: No Symptoms Ears, Nose, & Throat: No Symptoms Respiratory: No Symptoms Cardiac: No Symptoms Abdominal/Gastrointestinal: No Symptoms Genitourinary Symptoms: No Symptoms Musculoskeletal: No Symptoms Skin: No Symptoms Neurological: No Symptoms, Headache Psychological: No Symptoms Endocrine: No Symptoms Hematologic/Lymphatic: No Symptoms Immunological/Allergic: No Symptoms - Past Medical History Pertinent Past Medical History: Yes Neurological History: Other ENT History: No Pertinent History Cardiac History: Hypertension Respiratory History: No Pertinent History Endocrine Medical History: No Pertinent History Musculoskeletal History: No Pertinent History GI Medical History: Other History: No Pertinent History Psycho-Social History: No Pertinent History Male Reproductive Disorders: No Pertinent History Other Medical History: Mollaret's, spleen removed - Past Surgical History Past Surgical History: Yes Neuro Surgical History: No Pertinent History Cardiac: No Pertinent History Respiratory: No Pertinent History Gastrointestinal: Appendectomy, Other Genitourinary: No Pertinent History Musculoskeletal: No Pertinent History Male Surgical History: Vasectomy Other Surgical History: splenectomy, 2 nasal surgeries - Social History Smoking Status: Never smoker Exposure to second hand smoke: No Alcohol Use: None Drug Use: none Patient Lives Alone: No Significant Family History: no pertinent family hx - Nursing Vital Signs Nursing Vital Signs: Initial Vital Signs Temperature 97.8 F 07/01/22 19:47 Pulse Rate 91 H 07/01/22 19:47 Respiratory Rate 18 07/01/22 19:47 Blood Pressure 125/77 07/01/22 19:47 O2 Sat by Pulse Oximetry 99 07/01/22 19:47 Pain Scale Pain Intensity 7 WNL - Physical Exam General Appearance: no apparent distress Eye Exam: PERRL/EOMI, eyes nml inspection Ears, Nose, Throat Exam: normal ENT inspection, TMs normal, pharynx normal, moist mucous membranes Neck Exam: normal inspection, non-tender, supple, full range of motion, No meningismus, No mass, No Brudzinski, No Kernig's, No carotid bruit Respiratory Exam: normal breath sounds, lungs clear, airway intact Cardiovascular Exam: regular rate/rhythm, normal heart sounds, normal peripheral pulses, capillary refill <2 sec, No murmur Gastrointestinal/Abdominal Exam: soft, normal bowel sounds, No tenderness Back Exam: normal inspection, normal range of motion, No CVA tenderness, No vertebral tenderness Extremity Exam: normal inspection, normal range of motion Mental Status Exam: alert, oriented x 3, 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 Exam: normal hearing, normal speech, PERRL, tongue midline, No abnormal eye position, No abnormal gag reflex Coordination/Gait Exam: normal cerebellar function Motor/Sensory Exam: no motor deficit, no sensory deficit, no pronator drift, negative Babinski's sign DTR Exam: bicep (R): 2+, bicep (L): 2+ Skin Exam: normal color, warm, dry, No rash Lymphatic Exam: No adenopathy SpO2 Interpretation: normal SpO2: 95 O2 Delivery: Room Air Ordered Tests: Active Orders 24 hr Category Date Time Status Heart-Healthy Diet Diet 07/02/22 Breakfast Active CBC W DIFF Stat Lab 07/01/22 20:55 Completed CMP AM.LAB Lab 07/02/22 04:00 Ordered CMP Stat Lab 07/01/22 20:55 Completed Lactic Acid Stat Lab 07/01/22 20:52 Completed Lactic Acid Stat Lab 07/01/22 23:04 Completed Medication Summary Generic Name Dose Route Start Last Admin Trade Name Carolina PRN Reason Stop Dose Admin Hydromorphone HCl 30 mg 07/02/22 02:07 Hydromorphone 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 IV 07/07/22 02:06 UD PRN PAIN Acyclovir Sodium 500 mg/ 100 mls @ 100 mls/hr 07/02/22 02:15 Sodium Chloride IV 08/01/22 02:14 Q8H GLENNA Discontinued Medications Generic Name Dose Route Start Last Admin Trade Name Carolina PRN Reason Stop Dose Admin Acyclovir Sodium Confirm 07/01/22 23:45 Acyclovir Sodium 500 Mg/Vial Vial Administered 07/01/22 23:46 Dose 500 mg IV .STK-MED ONE Hydromorphone HCl 1 mg 07/01/22 21:45 07/01/22 21:50 Hydromorphone 1 Mg/1ml Inj 1 Mg/Ml Syringe IV 07/01/22 21:46 1 mg STAT ONE Administration Hydromorphone HCl Confirm 07/01/22 21:49 Hydromorphone 1 Mg/1ml Inj 1 Mg/Ml Syringe Administered 07/01/22 21:50 Dose 1 mg .ROUTE .STK-MED ONE Hydromorphone HCl 30 mg 07/01/22 23:16 Hydromorphone Hcl 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 Vial IV 07/06/22 23:15 UD PRN PAIN Hydromorphone HCl 1 mg 07/01/22 23:22 07/01/22 23:54 Hydromorphone 1 Mg/1ml Inj 1 Mg/Ml Syringe IV 07/01/22 23:23 1 mg STAT ONE Administration Hydromorphone HCl Confirm 07/01/22 23:45 Hydromorphone 1 Mg/1ml Inj 1 Mg/Ml Syringe Administered 07/01/22 23:46 Dose 1 mg .ROUTE .STK-MED ONE Acyclovir Sodium 500 mg/ 100 mls @ 100 mls/hr 07/01/22 23:30 07/01/22 23:54 Sodium Chloride IV 07/31/22 23:29 100 mls/hr Q8H GLENNA Administration Sodium Chloride Confirm 07/01/22 23:47 Sodium Chloride 0.9% Administered 07/01/22 23:48 Dose 100 mls @ ud .ROUTE .STK-MED ONE Sodium Chloride Confirm 07/02/22 02:18 Sodium Chloride 0.9% 1000 Ml Administered 07/02/22 02:19 Dose 1,000 mls @ ud .ROUTE .STK-MED ONE Ondansetron HCl 4 mg 07/01/22 21:46 07/01/22 21:49 Ondansetron Hcl 4 Mg/2 Ml Vial IV 07/01/22 21:47 4 mg STAT ONE Administration Ondansetron HCl Confirm 07/01/22 21:49 Ondansetron Hcl 4 Mg/2 Ml Vial Administered 07/01/22 21:50 Dose 4 mg .ROUTE .STK-MED ONE Lab/Rad Data: Laboratory Result Diagrams 07/01/22 20:55 07/01/22 20:55 Laboratory Results 07/01/22 07/01/22 07/01/22 Range/Units 23:04 20:55 20:55 WBC 11.8 H (4.0-10.5) x10^3/uL RBC 5.01 (4.1-5.6) x10^6/uL Hgb 14.6 (12.5-18.0) g/dL Hct 45.3 (42-50) % MCV 90.4 (78-100) fL MCH 29.1 (26-32) pg MCHC 32.2 (32-36) g/dL RDW 14.7 H (11.5-14.0) % Plt Count 430 (150-450) x10^3/uL MPV 10.4 (7.5-11.0) fL Gran % 49.1 (36.0-66.0) % Immature Gran % (Auto) 0.4 (0.00-0.4) % Nucleat RBC Rel Count 0.0 (0.00-0.1) % Eos # (Auto) 0.81 H (0-0.5) x10^3/uL Immature Gran # (Auto) 0.05 H (0.00-0.03) x10^3u/L Absolute Lymphs (auto) 3.86 (1.0-4.6) x10^3/uL Absolute Monos (auto) 1.18 (0.0-1.3) x10^3/uL Absolute Nucleated RBC 0.00 (0.00-0.01) x10^3u/L Lymphocytes % 32.8 (24.0-44.0) % Monocytes % 10.0 (0.0-12.0) % Eosinophils % 6.9 H (0.00-5.0) % Basophils % 0.8 (0.0-0.4) % Absolute Granulocytes 5.78 (1.4-6.9) x10^3/uL Basophils # 0.10 (0-0.4) x10^3/uL Sodium 134 L (137-145) mmol/L Potassium 4.2 (3.5-5.1) mmol/L Chloride 100 (98-107) mmol/L Carbon Dioxide 27 (22-30) mmol/L Anion Gap 12.2 (5-15) MEQ/L BUN 14 (9-20) mg/dL Creatinine 0.93 (0.66-1.25) mg/dL Estimated GFR > 60.0 ML/MIN Glucose 91 (74-106) mg/dL Lactic Acid 1.1 (0.4-2.0) Calcium 8.8 (8.4-10.2) mg/dL Total Bilirubin 0.30 (0.2-1.3) mg/dL AST 39 (17-59) U/L ALT 30 (0-50) U/L Alkaline Phosphatase 78 (38-126) U/L Serum Total Protein 6.9 (6.3-8.2) g/dL Albumin 4.2 (3.5-5.0) g/dL 07/01/22 Range/Units 20:52 WBC (4.0-10.5) x10^3/uL RBC (4.1-5.6) x10^6/uL Hgb (12.5-18.0) g/dL Hct (42-50) % MCV (78-100) fL MCH (26-32) pg MCHC (32-36) g/dL RDW (11.5-14.0) % Plt Count (150-450) x10^3/uL MPV (7.5-11.0) fL Gran % (36.0-66.0) % Immature Gran % (Auto) (0.00-0.4) % Nucleat RBC Rel Count (0.00-0.1) % Eos # (Auto) (0-0.5) x10^3/uL Immature Gran # (Auto) (0.00-0.03) x10^3u/L Absolute Lymphs (auto) (1.0-4.6) x10^3/uL Absolute Monos (auto) (0.0-1.3) x10^3/uL Absolute Nucleated RBC (0.00-0.01) x10^3u/L Lymphocytes % (24.0-44.0) % Monocytes % (0.0-12.0) % Eosinophils % (0.00-5.0) % Basophils % (0.0-0.4) % Absolute Granulocytes (1.4-6.9) x10^3/uL Basophils # (0-0.4) x10^3/uL Sodium (137-145) mmol/L Potassium (3.5-5.1) mmol/L Chloride (98-107) mmol/L Carbon Dioxide (22-30) mmol/L Anion Gap (5-15) MEQ/L BUN (9-20) mg/dL Creatinine (0.66-1.25) mg/dL Estimated GFR ML/MIN Glucose (74-106) mg/dL Lactic Acid 2.4 H (0.4-2.0) Calcium (8.4-10.2) mg/dL Total Bilirubin (0.2-1.3) mg/dL AST (17-59) U/L ALT (0-50) U/L Alkaline Phosphatase (38-126) U/L Serum Total Protein (6.3-8.2) g/dL Albumin (3.5-5.0) g/dL - Progress Progress: improved Progress Note: 07/01/22 23:13 1mg IV Dilaudid/4mg IV Zofran Obs per Dr. Flynn 07/02/22 02:25 1mg IV Dilaudid before admit Counseled pt/family regarding: lab results, diagnosis, need for follow-up - Departure Departure Disposition: Observation Clinical Impression: Aseptic meningitis Condition: Stable Critical Care Time: No
[2022-07-01] MEDS ORDERED: DILAUDID 1 MG/1ML PCA IV PRN (23:16)
[2022-07-01] MEDS ORDERED: SODIUM CHLORIDE 0.9% IV SCH (23:30)
[2022-07-01] MEDS ORDERED: ZOVIRAX IV SCH (23:30)
[2022-07-01] MEDS ORDERED: Zovirax INJ IV ONE (23:45)
[2022-07-01] MEDS ORDERED: Sodium Chloride 0.9% 100 ML ONE (23:47)
[2022-07-02 01:08] LABS: INFLUENZA A NEGATIVE (NEGATIVE); INFLUENZA B NEGATIVE (NEGATIVE); RESPIRATORY SYNCTIAL VIRUS NEGATIVE (Negative); SARS-CoV-2 Xpert Express NEGATIVE (NEGATIVE)
[2022-07-02] MEDS ORDERED: ZOVIRAX IV SCH ×2 (02:15→07:00)
[2022-07-02] MEDS ORDERED: SODIUM CHLORIDE 0.9% IV SCH ×2 (02:15→07:00)
[2022-07-02] MEDS ORDERED: Sodium Chloride 0.9% 1000 ML 1,000 ML ONE (02:18)
[2022-07-02] MEDS: DILAUDID 1 MG/1ML PCA IV PRN ×2 (02:20→23:39)
[2022-07-02 05:10] LABS: Absolute Neutrophil Ct (ANC) 6.22 x10^3/uL (1.4-6.9); Basophil (Absolute #) 0.07 x10^3/uL (0-0.4); Eosinophil (Absolute #) 0.71 x10^3/uL (0-0.5); Hemoglobin 14.7 g/dL (12.5-18.0); Lymphocyte (Absolute #) 3.71 x10^3/uL (1.0-4.6); Lymphocytes % 31.3 % (24.0-44.0); Mean Cell Volume 92.3 fL (78-100); Mean Corpuscular Hemoglobin 28.9 pg (26-32); Mean Corpuscular Hgb Concent. 31.3 g/dL (32-36); Mean Platelet Volume 10.1 fL (7.5-11.0); Monocyte (Absolute #) 1.11 x10^3/uL (0.0-1.3); Monocytes % 9.4 % (0.0-12.0); Neutrophil % 52.3 % (36.0-66.0); Platelet Count 406 x10^3/uL (150-450); Red Blood Count 5.09 x10^6/uL (4.1-5.6); Red Cell Distribution Width 14.6 % (11.5-14.0); White Blood Count 11.9 x10^3/uL (4.0-10.5)
[2022-07-02 05:40] LABS: ALBUMIN 4.1 g/dL (3.5-5.0); ALKALINE PHOSPHATASE 81 U/L (38-126); BLOOD UREA NITROGEN 12 mg/dL (9-20); CHLORIDE 97 mmol/L (98-107); Calcium 8.4 mg/dL (8.4-10.2); Carbon Dioxide 28 mmol/L (22-30); Creatinine 1 1.02 mg/dL (0.66-1.25); EST GLOMERULAR FILTRATION RATE > 60.0 ML/MIN; Glucose 159 mg/dL (74-106); Potassium 4.1 mmol/L (3.5-5.1); SGOT/AST 34 U/L (17-59); SGPT/ALT 29 U/L (0-50); SODIUM 135 mmol/L (137-145); Total Protein 6.8 g/dL (6.3-8.2)
--- NOTE | 2022-07-02 09:22 | PCM.HP ---
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 he has no fever, no vomiting, no chest pain or shortness of breath. - Review of Systems Constitutional: Weakness, No Fever, No Chills Respiratory: No Cough, No Short Of Breath Cardiac: No Chest Pain, No Edema, No Syncope Abdominal/Gastrointestinal: No Abdominal Pain, No Nausea, No Vomiting, No Diarrhea Genitourinary Symptoms: No Dysuria Neurological: Headache Psychological: No Symptoms All Other Systems: Reviewed and Negative Medications & Allergies Home Medications: Home Medication List Aspirin 81 mg PO DAILY 01/24/14 [History Confirmed 07/01/22] Enalapril Maleate 10 mg [Vasotec 10 MG] 20 mg PO HS 01/24/14 [History Confirmed 07/01/22] Mineral Oil 30 ml PO TID 01/24/14 [History Confirmed 07/01/22] Multivitamin [Multi-Vitamin Daily] 1 each PO DAILY 01/24/14 [History Confirmed 07/01/22] Testosterone Cypionate 1.25 ml IM UD 10/09/14 [History Confirmed 07/01/22] Duloxetine HCl [Cymbalta] 60 mg PO BID 04/23/15 [History Confirmed 07/01/22] Prednisone 10 mg [Deltasone 10 mg] 15 mg PO DAILY 04/23/15 [History Confirmed 07/01/22] Morphine Sulfate/Pf [Morphine 10 mg/10 ml Vial] 15.6 mg IJ DAILY 07/29/19 [History Confirmed 07/01/22] L.acidoph,Paracasei, B.lactis [Probiotic] 2 each PO DAILY 10/23/19 [History Confirmed 07/01/22] Metformin HCl 500 mg [Glucophage 500 MG] 1,000 mg PO BIDWM 04/20/20 [History Confirmed 07/01/22] Atorvastatin Calcium [Lipitor] 10 mg PO HS 01/06/22 [History Confirmed 07/01/22] Morphine Sulfate Ir 15 mg [Msir 15 mg] 15 mg PO Q6H 02/07/22 [History Confirmed 07/01/22] Omeprazole 20 mg PO HS 07/01/22 [History Confirmed 07/01/22] Allergies/Adverse Reactions: Allergies Allergy/AdvReac Type Severity Reaction Status Date / Time pregabalin [From Lyrica] AdvReac Severe Hives Verified 07/01/22 19:54 azithromycin [From Zmax] AdvReac Mild Verified 07/01/22 19:54 - Past Medical History Past Medical History: Yes Neurological History: Other ENT History: No Pertinent History Cardiac History: Hypertension Respiratory History: No Pertinent History Endocrine Medical History: No Pertinent History Musculoskelatal History: No Pertinent History GI Medical History: Other History: No Pertinent History Pyscho-Social History: Depression Male Reproductive Disorders: No Pertinent History Comment: Mollaret's, spleen removed - Past Surgical History Past Surgical History: Yes Neuro Surgical History: No Pertinent History Cardiac History: No Pertinent History Respiratory Surgery: No Pertinent History GI Surgical History: Appendectomy, Other Genitourinary Surgical Hx: No Pertinent History Musculskeletal Surgical Hx: No Pertinent History Male Surgical History: Vasectomy Other Surgical History: splenectomy, 2 nasal surgeries - Social History Smoking Status: Never smoker Exposure to second hand smoke: No Alcohol: None Drug Use: none Significant Family History: no pertinent family hx - Physical Exam Vital Signs: Vital Signs - 24 hr Temp Pulse Resp BP Pulse Ox 07/02/22 07:26 97.3 F 80 16 120/68 100 07/02/22 06:25 100 07/02/22 06:20 18 100 07/02/22 02:49 97.8 F 84 20 127/78 98 07/02/22 02:26 95 07/02/22 02:20 20 98 07/02/22 01:26 87 16 129/81 94 L 07/02/22 01:09 94 H 16 129/81 95 07/02/22 00:02 87 20 128/91 95 07/01/22 22:25 86 16 142/85 95 07/01/22 21:00 95 H 137/90 97 07/01/22 20:10 97 H 18 133/97 96 07/01/22 19:47 97.8 F 91 H 18 125/77 99 General Appearance: no apparent distress, obese Neurologic Exam: alert, oriented x 3 Respiratory Exam: normal breath sounds, lungs clear, No respiratory distress Cardiovascular Exam: regular rate/rhythm, normal heart sounds, normal peripheral pulses Gastrointestinal/Abdomen Exam: soft, normal bowel sounds, No tenderness, No mass Extremity Exam: normal inspection, normal range of motion, pelvis stable Skin Exam: normal color, warm, dry, No rash Results - Labs Lab/Micro Results: Lab Results-Last 24 Hours 07/01/22 07/01/22 07/01/22 Range/Units 20:52 20:55 20:55 WBC 11.8 H (4.0-10.5) x10^3/uL RBC 5.01 (4.1-5.6) x10^6/uL Hgb 14.6 (12.5-18.0) g/dL Hct 45.3 (42-50) % MCV 90.4 (78-100) fL MCH 29.1 (26-32) pg MCHC 32.2 (32-36) g/dL RDW 14.7 H (11.5-14.0) % Plt Count 430 (150-450) x10^3/uL MPV 10.4 (7.5-11.0) fL Gran % 49.1 (36.0-66.0) % Immature Gran % (Auto) 0.4 (0.00-0.4) % Nucleat RBC Rel Count 0.0 (0.00-0.1) % Eos # (Auto) 0.81 H (0-0.5) x10^3/uL Immature Gran # (Auto) 0.05 H (0.00-0.03) x10^3u/L Absolute Lymphs (auto) 3.86 (1.0-4.6) x10^3/uL Absolute Monos (auto) 1.18 (0.0-1.3) x10^3/uL Absolute Nucleated RBC 0.00 (0.00-0.01) x10^3u/L Lymphocytes % 32.8 (24.0-44.0) % Monocytes % 10.0 (0.0-12.0) % Eosinophils % 6.9 H (0.00-5.0) % Basophils % 0.8 (0.0-0.4) % Absolute Granulocytes 5.78 (1.4-6.9) x10^3/uL Basophils # 0.10 (0-0.4) x10^3/uL Sodium 134 L (137-145) mmol/L Potassium 4.2 (3.5-5.1) mmol/L Chloride 100 (98-107) mmol/L Carbon Dioxide 27 (22-30) mmol/L Anion Gap 12.2 (5-15) MEQ/L BUN 14 (9-20) mg/dL Creatinine 0.93 (0.66-1.25) mg/dL Estimated GFR > 60.0 ML/MIN Glucose 91 (74-106) mg/dL Lactic Acid 2.4 H (0.4-2.0) Calcium 8.8 (8.4-10.2) mg/dL Total Bilirubin 0.30 (0.2-1.3) mg/dL AST 39 (17-59) U/L ALT 30 (0-50) U/L Alkaline Phosphatase 78 (38-126) U/L Serum Total Protein 6.9 (6.3-8.2) g/dL Albumin 4.2 (3.5-5.0) g/dL Influenza Type A Ag (NEGATIVE) Influenza Type B Ag (NEGATIVE) RSV (PCR) (Negative) SARS-CoV-2 (PCR) (NEGATIVE) 07/01/22 07/02/22 07/02/22 Range/Units 23:04 04:30 04:30 WBC 11.9 H (4.0-10.5) x10^3/uL RBC 5.09 (4.1-5.6) x10^6/uL Hgb 14.7 (12.5-18.0) g/dL Hct 47.0 (42-50) % MCV 92.3 (78-100) fL MCH 28.9 (26-32) pg MCHC 31.3 L (32-36) g/dL RDW 14.6 H (11.5-14.0) % Plt Count 406 (150-450) x10^3/uL MPV 10.1 (7.5-11.0) fL Gran % 52.3 (36.0-66.0) % Immature Gran % (Auto) 0.4 (0.00-0.4) % Nucleat RBC Rel Count 0.0 (0.00-0.1) % Eos # (Auto) 0.71 H (0-0.5) x10^3/uL Immature Gran # (Auto) 0.05 H (0.00-0.03) x10^3u/L Absolute Lymphs (auto) 3.71 (1.0-4.6) x10^3/uL Absolute Monos (auto) 1.11 (0.0-1.3) x10^3/uL Absolute Nucleated RBC 0.00 (0.00-0.01) x10^3u/L Lymphocytes % 31.3 (24.0-44.0) % Monocytes % 9.4 (0.0-12.0) % Eosinophils % 6.0 H (0.00-5.0) % Basophils % 0.6 (0.0-0.4) % Absolute Granulocytes 6.22 (1.4-6.9) x10^3/uL Basophils # 0.07 (0-0.4) x10^3/uL Sodium 135 L (137-145) mmol/L Potassium 4.1 (3.5-5.1) mmol/L Chloride 97 L (98-107) mmol/L Carbon Dioxide 28 (22-30) mmol/L Anion Gap 13.0 (5-15) MEQ/L BUN 12 (9-20) mg/dL Creatinine 1.02 (0.66-1.25) mg/dL Estimated GFR > 60.0 ML/MIN Glucose 159 H (74-106) mg/dL Lactic Acid 1.1 (0.4-2.0) Calcium 8.4 (8.4-10.2) mg/dL Total Bilirubin 0.50 (0.2-1.3) mg/dL AST 34 (17-59) U/L ALT 29 (0-50) U/L Alkaline Phosphatase 81 (38-126) U/L Serum Total Protein 6.8 (6.3-8.2) g/dL Albumin 4.1 (3.5-5.0) g/dL Influenza Type A Ag (NEGATIVE) Influenza Type B Ag (NEGATIVE) RSV (PCR) (Negative) SARS-CoV-2 (PCR) (NEGATIVE) 07/02/22 Range/Units Unknown WBC (4.0-10.5) x10^3/uL RBC (4.1-5.6) x10^6/uL Hgb (12.5-18.0) g/dL Hct (42-50) % MCV (78-100) fL MCH (26-32) pg MCHC (32-36) g/dL RDW (11.5-14.0) % Plt Count (150-450) x10^3/uL MPV (7.5-11.0) fL Gran % (36.0-66.0) % Immature Gran % (Auto) (0.00-0.4) % Nucleat RBC Rel Count (0.00-0.1) % Eos # (Auto) (0-0.5) x10^3/uL Immature Gran # (Auto) (0.00-0.03) x10^3u/L Absolute Lymphs (auto) (1.0-4.6) x10^3/uL Absolute Monos (auto) (0.0-1.3) x10^3/uL Absolute Nucleated RBC (0.00-0.01) x10^3u/L Lymphocytes % (24.0-44.0) % Monocytes % (0.0-12.0) % Eosinophils % (0.00-5.0) % Basophils % (0.0-0.4) % Absolute Granulocytes (1.4-6.9) x10^3/uL Basophils # (0-0.4) x10^3/uL Sodium (137-145) mmol/L Potassium (3.5-5.1) mmol/L Chloride (98-107) mmol/L Carbon Dioxide (22-30) mmol/L Anion Gap (5-15) MEQ/L BUN (9-20) mg/dL Creatinine (0.66-1.25) mg/dL Estimated GFR ML/MIN Glucose (74-106) mg/dL Lactic Acid (0.4-2.0) Calcium (8.4-10.2) mg/dL Total Bilirubin (0.2-1.3) mg/dL AST (17-59) U/L ALT (0-50) U/L Alkaline Phosphatase (38-126) U/L Serum Total Protein (6.3-8.2) g/dL Albumin (3.5-5.0) g/dL Influenza Type A Ag NEGATIVE (NEGATIVE) Influenza Type B Ag NEGATIVE (NEGATIVE) RSV (PCR) NEGATIVE (Negative) SARS-CoV-2 (PCR) NEGATIVE (NEGATIVE) Assessment/Plan (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 will treat as per usual history. Code(s): G03.2 - BENIGN RECURRENT MENINGITIS [MOLLARET] (2) Cephalgia Current Visit: No Status: Acute Onset Date: ~11/01/18 Code(s): R51 - HEADACHE * DO NOT USE *
[2022-07-02] MEDS ORDERED: NON-FORMULARY ITEM (Duloxetine Hcl [Cymbalta] 60 MG Capsule.Dr) PO SCH (10:00)
[2022-07-02] MEDS ORDERED: NON-FORMULARY ITEM (Multivitamin [Multi-Vitamin Daily] 1 EACH Tablet) PO SCH (10:00)
[2022-07-02] MEDS ORDERED: NON-FORMULARY ITEM (Aspirin [Aspirin] 81 MG Tablet) PO SCH (10:00)
[2022-07-02] MEDS: Sodium Chloride 0.9% W/ 20 mEq KCl/LITER 1,000 ML IV SCH (10:38)
[2022-07-02] MEDS: ECOTRIN 81 MG PO SCH (10:42)
[2022-07-02] MEDS: Sterile H2O 10 ml IJ SCH ×2 (10:42→18:02)
[2022-07-02] MEDS: solu-CORTEF 100MG IV SCH ×2 (10:42→18:02)
[2022-07-02] MEDS: Cymbalta 30 MG Capsule PO SCH ×2 (10:42→21:21)
[2022-07-02] MEDS: MINERAL OIL PO SCH ×3 (10:43→21:21)
[2022-07-02] MEDS: THERAGRAN MULTIVITAMIN PO SCH (10:43)
[2022-07-02] MEDS: MSIR 15 MG PO SCH ×3 (11:53→23:49)
[2022-07-02] MEDS: ZOVIRAX IV SCH ×2 (14:20→21:21)
[2022-07-02] MEDS: SODIUM CHLORIDE MINI IV SCH ×2 (14:20→21:21)
[2022-07-02] MEDS: HUMALOG SQ PRN ×2 (17:28→21:22)
[2022-07-02] MEDS: Vasotec 10 MG PO SCH (21:23)
[2022-07-02] MEDS: Zocor 10MG PO SCH (21:23)
[2022-07-02] MEDS: Protonix 40MG Tablet PO SCH (21:32)
[2022-07-02] MEDS ORDERED: ENALAPRIL MALEATE 10 MG PO SCH (22:00)
[2022-07-02] MEDS ORDERED: NON-FORMULARY ITEM (Atorvastatin Calcium 10 MG Tablet) PO SCH (22:00)
[2022-07-02] MEDS ORDERED: NON-FORMULARY ITEM (Omeprazole [Omeprazole] 20 MG Capsule.Dr) PO SCH (22:00)
[2022-07-03] MEDS: Sterile H2O 10 ml IJ SCH ×3 (02:06→18:00)
[2022-07-03] MEDS: solu-CORTEF 100MG IV SCH ×3 (02:06→17:24)
[2022-07-03 04:29] LABS: ANION GAP 10.4 MEQ/L (5-15); BLOOD UREA NITROGEN 8 mg/dL (9-20); CHLORIDE 103 mmol/L (98-107); Calcium 8.3 mg/dL (8.4-10.2); Carbon Dioxide 26 mmol/L (22-30); Creatinine 1 0.79 mg/dL (0.66-1.25); EST GLOMERULAR FILTRATION RATE > 60.0 ML/MIN; Glucose 170 mg/dL (74-106); Potassium 4.2 mmol/L (3.5-5.1); SODIUM 135 mmol/L (137-145)
[2022-07-03] MEDS: MSIR 15 MG PO SCH ×4 (05:48→23:42)
[2022-07-03] MEDS: ZOVIRAX IV SCH ×3 (05:48→20:40)
[2022-07-03] MEDS: SODIUM CHLORIDE MINI IV SCH ×3 (05:48→20:40)
[2022-07-03] MEDS: DILAUDID 1 MG/1ML PCA IV PRN ×2 (07:18→16:11)
--- NOTE | 2022-07-03 08:01 | PCM.NOTE ---
Date and Time: 07/03/22 0800 Subjective Assessment: had bad night, lots of pain in the head and neck. problems with REHANGER beeping most of the night so didn't get any sleep. feels bad this morning Objective Exam General Appearance: mild distress (appears to be in pain), obese Neck Exam: supple, No meningismus Lymphatic Exam: No adenopathy Respiratory Exam: normal breath sounds, lungs clear, No respiratory distress Cardiovascular Exam: regular rate/rhythm, normal heart sounds OBJECTIVE DATA Vital Signs: Vital Signs - 24 hr Temp Pulse Resp BP Pulse Ox 07/03/22 07:18 18 98 07/03/22 07:10 98.2 F 87 18 125/72 97 07/03/22 04:00 98.2 F 97 H 20 123/72 97 07/02/22 23:47 97.9 F 97 H 20 107/62 96 07/02/22 23:39 18 97 07/02/22 20:00 97.5 F 101 H 18 125/76 97 07/02/22 18:59 100 07/02/22 16:00 97.5 F 99 H 16 116/58 100 07/02/22 12:00 96.1 F 84 16 117/63 100 Pain Assessment - Last Documented Pain Intensity 9 Pain Scale Used 0-10 Pain Scale Intake and Output: Intake & Output 06/30/22 07/01/22 07/02/22 07/03/22 11:59 11:59 11:59 11:59 Intake Total 480 3102 Output Total 1100 4250 Balance -620 -1148 Weight 112.7 kg Lab Results: Lab Results-Last 24 Hours 07/02/22 07/02/22 07/02/22 Range/Units 12:22 16:46 20:48 Sodium (137-145) mmol/L Potassium (3.5-5.1) mmol/L Chloride (98-107) mmol/L Carbon Dioxide (22-30) mmol/L Anion Gap (5-15) MEQ/L BUN (9-20) mg/dL Creatinine (0.66-1.25) mg/dL Estimated GFR ML/MIN Glucose (74-106) mg/dL POC Glucometer 105 199 H 230 H (74 to 106) mg/dL Calcium (8.4-10.2) mg/dL 07/03/22 07/03/22 Range/Units 04:03 07:17 Sodium 135 L (137-145) mmol/L Potassium 4.2 (3.5-5.1) mmol/L Chloride 103 (98-107) mmol/L Carbon Dioxide 26 (22-30) mmol/L Anion Gap 10.4 (5-15) MEQ/L BUN 8 L (9-20) mg/dL Creatinine 0.79 (0.66-1.25) mg/dL Estimated GFR > 60.0 ML/MIN Glucose 170 H (74-106) mg/dL POC Glucometer 132 H (74 to 106) mg/dL Calcium 8.3 L (8.4-10.2) mg/dL Assessment/Plan (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 Code(s): G03.2 - BENIGN RECURRENT MENINGITIS [MOLLARET] (2) Cephalgia Current Visit: No Status: Acute Onset Date: ~11/01/18 Code(s): R51 - HEADACHE * DO NOT USE *
[2022-07-03] MEDS: THERAGRAN MULTIVITAMIN PO SCH (09:35)
[2022-07-03] MEDS: Cymbalta 30 MG Capsule PO SCH ×2 (09:35→20:34)
[2022-07-03] MEDS: ECOTRIN 81 MG PO SCH (09:35)
[2022-07-03] MEDS: MINERAL OIL PO SCH ×3 (09:35→20:34)
[2022-07-03] MEDS: Sodium Chloride 0.9% W/ 20 mEq KCl/LITER 1,000 ML IV SCH (10:00)
[2022-07-03] MEDS: HUMALOG SQ PRN (16:49)
[2022-07-03] MEDS: Vasotec 10 MG PO SCH (20:34)
[2022-07-03] MEDS: Protonix 40MG Tablet PO SCH (20:34)
[2022-07-03] MEDS: Zocor 10MG PO SCH (20:35)
[2022-07-04] MEDS: solu-CORTEF 100MG IV SCH ×3 (01:56→18:07)
[2022-07-04] MEDS: Sterile H2O 10 ml IJ SCH ×3 (01:57→18:07)
[2022-07-04] MEDS: MSIR 15 MG PO SCH ×3 (05:39→18:06)
[2022-07-04] MEDS: ZOVIRAX IV SCH ×3 (05:39→22:27)
[2022-07-04] MEDS: SODIUM CHLORIDE MINI IV SCH ×3 (05:39→22:27)
--- NOTE | 2022-07-04 08:12 | PCM.NOTE ---
Date and Time: 07/04/22 0811 Subjective Assessment: patient slept better last night, pain has improved but is still severe at times to head and neck. he is nearing his baseline but not quite there yet Objective Exam General Appearance: no apparent distress, obese Respiratory Exam: normal breath sounds, lungs clear, No respiratory distress Cardiovascular Exam: regular rate/rhythm, normal heart sounds Gastrointestinal/Abdomen Exam: soft, No tenderness, No mass Extremity Exam: normal inspection, normal range of motion OBJECTIVE DATA Vital Signs: Vital Signs - 24 hr Temp Pulse Resp BP Pulse Ox 07/04/22 04:15 89 98 07/04/22 04:00 18 98 07/04/22 00:00 18 98 07/03/22 23:59 97.1 F 94 H 18 118/63 96 07/03/22 20:00 20 96 07/03/22 19:44 93 L 07/03/22 19:36 97.9 F 91 H 20 124/67 97 07/03/22 16:00 97.5 F 84 16 133/79 100 07/03/22 11:59 97.8 F 83 18 113/56 97 Pain Assessment - Last Documented Pain Intensity 8 Pain Scale Used 0-10 Pain Scale Intake and Output: Intake & Output 07/01/22 07/02/22 07/03/22 07/04/22 11:59 11:59 11:59 11:59 Intake Total 480 3102 600 Output Total 1100 4250 3100 Balance -981 -7546 -7203 Weight 112.7 kg Lab Results: Lab Results-Last 24 Hours 07/03/22 07/03/22 07/03/22 Range/Units 11:15 16:13 21:19 POC Glucometer 142 H 162 H 404 H (74 to 106) mg/dL 07/04/22 Range/Units 07:41 POC Glucometer 143 H (74 to 106) mg/dL Multi-Disciplinary Progress Notes: Multi-Disciplinary Progress Notes 07/03/22 08:27 Case Management Note by Kasie Garcia REVIEWED CHART- NO CHANGE IN DC PLANS AT THIS TIME. 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 patient will need acyclovir po x 1 week and prednisone taper on discharge. might be able to go home tomorrow Code(s): G03.2 - BENIGN RECURRENT MENINGITIS [MOLLARET] (2) Cephalgia Current Visit: No Status: Acute Onset Date: ~11/01/18 Code(s): R51 - HEADACHE * DO NOT USE *
[2022-07-04] MEDS: MINERAL OIL PO SCH ×3 (09:32→21:32)
[2022-07-04] MEDS: Cymbalta 30 MG Capsule PO SCH ×2 (09:33→21:32)
[2022-07-04] MEDS: ECOTRIN 81 MG PO SCH (09:34)
[2022-07-04] MEDS: THERAGRAN MULTIVITAMIN PO SCH (09:35)
[2022-07-04] MEDS: Sodium Chloride 0.9% 500 ML 500 ML IV SCH (10:02)
[2022-07-04] MEDS: HUMALOG SQ PRN ×2 (11:54→21:34)
[2022-07-04] MEDS ORDERED: DILAUDID 1 MG/1ML PCA ONE ×2 (14:20→14:26)
[2022-07-04] MEDS: DILAUDID 1 MG/1ML PCA IV PRN (14:27)
[2022-07-04] MEDS: Vasotec 10 MG PO SCH (21:32)
[2022-07-04] MEDS: Zocor 10MG PO SCH (21:32)
[2022-07-04] MEDS: Protonix 40MG Tablet PO SCH (21:32)
[2022-07-05] MEDS: MSIR 15 MG PO SCH ×4 (00:10→17:22)
[2022-07-05] MEDS: Sterile H2O 10 ml IJ SCH ×3 (01:59→17:24)
[2022-07-05] MEDS: solu-CORTEF 100MG IV SCH ×3 (02:02→17:23)
[2022-07-05] MEDS: Sodium Chloride 0.9% 500 ML 500 ML IV SCH ×2 (02:02→21:15)
[2022-07-05] MEDS: SODIUM CHLORIDE MINI IV SCH ×3 (05:51→21:14)
[2022-07-05] MEDS: ZOVIRAX IV SCH ×3 (05:51→21:14)
[2022-07-05 06:25] LABS: Absolute Neutrophil Ct (ANC) 8.69 x10^3/uL (1.4-6.9); Basophil (Absolute #) 0.06 x10^3/uL (0-0.4); Eosinophil % 0.4 % (0.00-5.0); Eosinophil (Absolute #) 0.04 x10^3/uL (0-0.5); Hematocrit 44.5 % (42-50); Hemoglobin 13.9 g/dL (12.5-18.0); Lymphocytes % 17.6 % (24.0-44.0); Mean Cell Volume 93.5 fL (78-100); Mean Corpuscular Hemoglobin 29.2 pg (26-32); Mean Corpuscular Hgb Concent. 31.2 g/dL (32-36); Mean Platelet Volume 9.9 fL (7.5-11.0); Monocytes % 4.4 % (0.0-12.0); Neutrophil % 76.7 % (36.0-66.0); Platelet Count 423 x10^3/uL (150-450); Red Blood Count 4.76 x10^6/uL (4.1-5.6); Red Cell Distribution Width 14.7 % (11.5-14.0); White Blood Count 11.3 x10^3/uL (4.0-10.5)
[2022-07-05 06:49] LABS: ANION GAP 10.6 MEQ/L (5-15); BLOOD UREA NITROGEN 8 mg/dL (9-20); CHLORIDE 101 mmol/L (98-107); Calcium 8.3 mg/dL (8.4-10.2); Carbon Dioxide 29 mmol/L (22-30); Creatinine 1 0.75 mg/dL (0.66-1.25); EST GLOMERULAR FILTRATION RATE > 60.0 ML/MIN; Glucose 156 mg/dL (74-106); MAGNESIUM 2.1 mg/dL (1.6-2.3); Potassium 4.2 mmol/L (3.5-5.1); SODIUM 136 mmol/L (137-145)
[2022-07-05] MEDS: Cymbalta 30 MG Capsule PO SCH ×2 (09:17→21:15)
[2022-07-05] MEDS: THERAGRAN MULTIVITAMIN PO SCH (09:17)
[2022-07-05] MEDS: ECOTRIN 81 MG PO SCH (09:17)
[2022-07-05] MEDS: MINERAL OIL PO SCH ×3 (09:18→21:16)
[2022-07-05] MEDS: DILAUDID 1 MG/1ML PCA IV PRN (10:59)
--- NOTE | 2022-07-05 14:20 | PCM.NOTE ---
Date and Time: 07/05/221418 Subjective Assessment: c/o headache - Review of Systems Constitutional: No Fever, No Chills Eyes: No Symptoms Ears, Nose, & Throat: No Symptoms Respiratory: No Cough, No Short Of Breath Cardiac: No Chest Pain, No Edema, No Syncope Abdominal/Gastrointestinal: No Abdominal Pain, No Nausea, No Vomiting, No Diarrhea Genitourinary Symptoms: No Dysuria Musculoskeletal: No Back Pain, No Neck Pain Skin: No Rash Neurological: No Dizziness, No Focal Weakness, No Sensory Changes Psychological: No Symptoms Endocrine: No Symptoms Hematologic/Lymphatic: No Symptoms Immunological/Allergic: No Symptoms Objective Exam General Appearance: no apparent distress, alert Neurologic Exam: alert, oriented x 3, cooperative, normal mood/affect, nml cerebellar function, sensation nml, No motor deficits Skin Exam: normal color, warm, dry Eye Exam: PERRL, EOMI, eyes nml inspection Ears, Nose, Throat Exam: normal ENT inspection, pharynx normal, moist mucous membranes Neck Exam: normal inspection, non-tender, supple, full range of motion Respiratory Exam: normal breath sounds, lungs clear, No respiratory distress Cardiovascular Exam: regular rate/rhythm, normal heart sounds Gastrointestinal/Abdomen Exam: soft, No tenderness, No mass Extremity Exam: normal inspection, normal range of motion Back Exam: normal inspection, normal range of motion, No CVA tenderness, No vertebral tenderness Male Genitalia Exam: deferred Rectal Exam: deferred OBJECTIVE DATA Vital Signs: Vital Signs - 24 hr Temp Pulse Resp BP Pulse Ox 07/05/22 12:00 97.3 F 84 20 122/74 98 07/05/22 10:59 16 98 07/05/22 07:51 97.5 F 82 22 138/66 97 07/05/22 07:36 97 07/05/22 04:56 96 07/05/22 04:00 97.5 F 95 H 18 130/61 95 07/05/22 00:00 97.5 F 95 H 18 130/61 95 07/04/22 20:00 97.8 F 103 H 18 129/73 97 07/04/22 19:15 94 L 07/04/22 18:27 18 98 07/04/22 16:00 97.3 F 69 19 116/75 99 07/04/22 14:27 18 99 Pain Assessment - Last Documented Pain Intensity 8 Pain Scale Used 0-10 Pain Scale Intake and Output: Intake & Output 07/03/22 07/04/22 07/05/22 07/06/22 11:59 11:59 11:59 11:59 Intake Total 3107 1140 2686 300 Output Total 4258 9861 2593 Balance -1148 -2960 262 300 Weight 112.7 kg Lab Results: Lab Results-Last 24 Hours 07/04/22 07/04/22 07/05/22 Range/Units 16:17 21:07 06:08 WBC 11.3 H (4.0-10.5) x10^3/uL RBC 4.76 (4.1-5.6) x10^6/uL Hgb 13.9 (12.5-18.0) g/dL Hct 44.5 (42-50) % MCV 93.5 (78-100) fL MCH 29.2 (26-32) pg MCHC 31.2 L (32-36) g/dL RDW 14.7 H (11.5-14.0) % Plt Count 423 (150-450) x10^3/uL MPV 9.9 (7.5-11.0) fL Gran % 76.7 H (36.0-66.0) % Immature Gran % (Auto) 0.4 (0.00-0.4) % Nucleat RBC Rel Count 0.0 (0.00-0.1) % Eos # (Auto) 0.04 (0-0.5) x10^3/uL Immature Gran # (Auto) 0.05 H (0.00-0.03) x10^3u/L Absolute Lymphs (auto) 2.00 (1.0-4.6) x10^3/uL Absolute Monos (auto) 0.50 (0.0-1.3) x10^3/uL Absolute Nucleated RBC 0.00 (0.00-0.01) x10^3u/L Lymphocytes % 17.6 L (24.0-44.0) % Monocytes % 4.4 (0.0-12.0) % Eosinophils % 0.4 (0.00-5.0) % Basophils % 0.5 (0.0-0.4) % Absolute Granulocytes 8.69 H (1.4-6.9) x10^3/uL Basophils # 0.06 (0-0.4) x10^3/uL Sodium (137-145) mmol/L Potassium (3.5-5.1) mmol/L Chloride (98-107) mmol/L Carbon Dioxide (22-30) mmol/L Anion Gap (5-15) MEQ/L BUN (9-20) mg/dL Creatinine (0.66-1.25) mg/dL Estimated GFR ML/MIN Glucose (74-106) mg/dL POC Glucometer 191 H 245 H (74 to 106) mg/dL Calcium (8.4-10.2) mg/dL Magnesium (1.6-2.3) mg/dL 07/05/22 07/05/22 07/05/22 Range/Units 06:08 07:03 11:17 WBC (4.0-10.5) x10^3/uL RBC (4.1-5.6) x10^6/uL Hgb (12.5-18.0) g/dL Hct (42-50) % MCV (78-100) fL MCH (26-32) pg MCHC (32-36) g/dL RDW (11.5-14.0) % Plt Count (150-450) x10^3/uL MPV (7.5-11.0) fL Gran % (36.0-66.0) % Immature Gran % (Auto) (0.00-0.4) % Nucleat RBC Rel Count (0.00-0.1) % Eos # (Auto) (0-0.5) x10^3/uL Immature Gran # (Auto) (0.00-0.03) x10^3u/L Absolute Lymphs (auto) (1.0-4.6) x10^3/uL Absolute Monos (auto) (0.0-1.3) x10^3/uL Absolute Nucleated RBC (0.00-0.01) x10^3u/L Lymphocytes % (24.0-44.0) % Monocytes % (0.0-12.0) % Eosinophils % (0.00-5.0) % Basophils % (0.0-0.4) % Absolute Granulocytes (1.4-6.9) x10^3/uL Basophils # (0-0.4) x10^3/uL Sodium 136 L (137-145) mmol/L Potassium 4.2 (3.5-5.1) mmol/L Chloride 101 (98-107) mmol/L Carbon Dioxide 29 (22-30) mmol/L Anion Gap 10.6 (5-15) MEQ/L BUN 8 L (9-20) mg/dL Creatinine 0.75 (0.66-1.25) mg/dL Estimated GFR > 60.0 ML/MIN Glucose 156 H (74-106) mg/dL POC Glucometer 148 H 165 H (74 to 106) mg/dL Calcium 8.3 L (8.4-10.2) mg/dL Magnesium 2.1 (1.6-2.3) mg/dL Assessment/Plan (1) Aseptic meningitis Current Visit: Yes Status: Acute Assessment & Plan: Chief Complaint Diagnosis MOLLARET'S MENINGITIS FLARE Allergies Allergy/AdvReac Type Severity Reaction Status Date / Time pregabalin [From Lyrica] AdvReac Severe Hives Verified 07/01/22 19:54 azithromycin [From Zmax] AdvReac Mild Verified 07/01/22 19:54 Vital Signs (Last 24 hours) Temp Pulse Resp BP Pulse Ox 07/05/22 12:00 97.3 F 84 20 122/74 98 07/05/22 10:59 16 98 07/05/22 07:51 97.5 F 82 22 138/66 97 07/05/22 07:36 97 07/05/22 04:56 96 07/05/22 04:00 97.5 F 95 H 18 130/61 95 07/05/22 00:00 97.5 F 95 H 18 130/61 95 07/04/22 20:00 97.8 F 103 H 18 129/73 97 07/04/22 19:15 94 L 07/04/22 18:27 18 98 07/04/22 16:00 97.3 F 69 19 116/75 99 07/04/22 14:27 18 99 Home Medications Medication Instructions Recorded Confirmed Last Taken Type Omeprazole 20 mg PO HS 07/01/22 07/01/22 07/01/22 History Current Medications Generic Name Dose Route Start Last Admin Trade Name Freq PRN Reason Stop Dose Admin Aspirin 81 mg 07/02/22 11:00 07/05/22 09:17 Aspirin 81 Mg Tablet.Ec PO 08/01/22 10:59 81 mg DAILY GLENNA Administration Duloxetine HCl 60 mg 07/02/22 11:00 07/05/22 09:17 Duloxetine Hcl 30 Mg Cap PO 08/01/22 10:59 60 mg BID GLENNA Administration Enalapril Maleate 20 mg 07/02/22 22:00 07/04/22 21:32 Enalapril Maleate 10 Mg 10 Mg Tablet PO 08/01/22 21:59 20 mg HS GLENNA Administration Hydrocortisone Sodium Succinate 100 mg 07/02/22 10:00 07/05/22 09:18 Hydrocortisone Sod Succinate 100 Mg/Vial Vial IV 08/01/22 09:59 100 mg Q8H GLENNA Administration Hydromorphone HCl 30 mg 07/05/22 08:55 07/05/22 10:59 Hydromorphone Hcl 30 Mg/30 Ml Embalmer Apprentice Vial IV 07/10/22 08:54 30 mg UD PRN Administration PAIN Acyclovir Sodium 500 mg/ 100 mls @ 100 mls/hr 07/02/22 14:00 07/05/22 05:51 Sodium Chloride IV 08/01/22 13:59 100 mls/hr Q8HT GLENNA Administration Sodium Chloride 500 mls @ 30 mls/hr 07/04/22 08:45 07/05/22 02:02 Sodium Chloride 0.9% 500 Ml IV 08/03/22 08:44 30 mls/hr .[id number] GLENNA Administration KVO Insulin Human Lispro 0 unit 07/02/22 09:24 07/04/22 21:34 Insulin Lispro 1 Unit SQ 08/01/22 09:23 5 unit UD PRN Administration HYPERGLYCEMIA Mineral Oil 30 ml 07/02/22 10:00 07/05/22 09:18 Mineral Oil 1 Ml Ml PO 08/01/22 09:59 30 ml TID GLENNA Administration Morphine Sulfate 15 mg 07/02/22 12:00 07/05/22 12:09 Morphine Sulfate 15 Mg Tablet Immediate Release PO 07/07/22 11:59 15 mg Q6HT GLENNA Administration Multivitamins Therapeutic 1 tab 07/02/22 11:00 07/05/22 09:17 Multivitamins,Therapeutic 1 Tab Tab PO 08/01/22 10:59 1 tab DAILY GLENNA Administration Pantoprazole Sodium 40 mg 07/02/22 22:00 07/04/22 21:32 Protonix (Pantoprazole) 40 Mg Tablet PO 08/01/22 21:59 40 mg HS GLENNA Administration Simvastatin 10 mg 07/02/22 22:00 07/04/22 21:32 Simvastatin 10 Mg Tablet PO 08/01/22 21:59 10 mg HS GLENNA Administration Sterile Water 2 ml 07/02/22 10:00 07/05/22 09:22 Water For Injection,Sterile 10 Ml Vial IJ 08/01/22 09:59 10 ml Q8H GLENNA Administration Discontinued Medications Generic Name Dose Route Start Last Admin Trade Name Freq PRN Reason Stop Dose Admin Acyclovir Sodium Confirm 07/01/22 23:45 Acyclovir Sodium 500 Mg/Vial Vial Administered 07/01/22 23:46 Dose 500 mg IV .STK-MED ONE Hydromorphone HCl 1 mg 07/01/22 21:45 07/01/22 21:50 Hydromorphone 1 Mg/1ml Inj 1 Mg/Ml Syringe IV 07/01/22 21:46 1 mg STAT ONE Administration Hydromorphone HCl Confirm 07/01/22 21:49 Hydromorphone 1 Mg/1ml Inj 1 Mg/Ml Syringe Administered 07/01/22 21:50 Dose 1 mg .ROUTE .STK-MED ONE Hydromorphone HCl 30 mg 07/01/22 23:16 Hydromorphone Hcl 30 Mg/30 Ml Embalmer Apprentice Vial IV 07/06/22 23:15 UD PRN PAIN Hydromorphone HCl 1 mg 07/01/22 23:22 07/01/22 23:54 Hydromorphone 1 Mg/1ml Inj 1 Mg/Ml Syringe IV 07/01/22 23:23 1 mg STAT ONE Administration Hydromorphone HCl Confirm 07/01/22 23:45 Hydromorphone 1 Mg/1ml Inj 1 Mg/Ml Syringe Administered 07/01/22 23:46 Dose 1 mg .ROUTE .STK-MED ONE Hydromorphone HCl 30 mg 07/02/22 02:07 07/04/22 14:27 Hydromorphone Hcl 30 Mg/30 Ml Embalmer Apprentice Vial IV 07/07/22 02:06 30 mg UD PRN Administration PAIN Hydromorphone HCl Confirm 07/04/22 14:20 Hydromorphone Hcl 30 Mg/30 Ml Embalmer Apprentice Vial Administered 07/04/22 14:21 Dose 30 mg .ROUTE .STK-MED ONE Hydromorphone HCl Confirm 07/04/22 14:26 Hydromorphone Hcl 30 Mg/30 Ml Embalmer Apprentice Vial Administered 07/04/22 14:27 Dose 30 mg .ROUTE .STK-MED ONE Acyclovir Sodium 500 mg/ 100 mls @ 100 mls/hr 07/01/22 23:30 07/01/22 23:54 Sodium Chloride IV 07/31/22 23:29 100 mls/hr Q8H GLENNA Administration Sodium Chloride Confirm 07/01/22 23:47 Sodium Chloride 0.9% Administered 07/01/22 23:48 Dose 100 mls @ ud .ROUTE .STK-MED ONE Acyclovir Sodium 500 mg/ 100 mls @ 100 mls/hr 07/02/22 02:15 07/02/22 02:39 Sodium Chloride IV 08/01/22 02:14 Not Given Q8H GLENNA Sodium Chloride Confirm 07/02/22 02:18 Sodium Chloride 0.9% 1000 Ml Administered 07/02/22 02:19 Dose 1,000 mls @ ud .ROUTE .STK-MED ONE Acyclovir Sodium 500 mg/ 100 mls @ 100 mls/hr 07/02/22 07:00 07/02/22 08:16 Sodium Chloride IV 08/01/22 06:59 100 mls/hr Q8HT GLENNA Administration Potassium Chloride/Sodium Chloride 1,000 mls @ 50 mls/hr 07/02/22 09:30 07/03/22 10:00 Sodium Chloride 0.9% W/ 20 Meq Kcl/Liter IV 08/01/22 09:29 50 mls/hr .Q20H GLENNA Administration Ondansetron HCl 4 mg 07/01/22 21:46 07/01/22 21:49 Ondansetron Hcl 4 Mg/2 Ml Vial IV 07/01/22 21:47 4 mg STAT ONE Administration Ondansetron HCl Confirm 07/01/22 21:49 Ondansetron Hcl 4 Mg/2 Ml Vial Administered 07/01/22 21:50 Dose 4 mg .ROUTE .STK-MED ONE Intake & Output (Last 24 hours) 07/03/22 07/04/22 07/05/22 07/06/22 11:59 11:59 11:59 11:59 Intake Total 3102 1140 2687 300 Output Total 4250 4100 6995 Balance -1148 -2960 262 300 Weight 112.7 kg Laboratory Results (Last 24 hours) 07/05/22 07/05/22 07/05/22 11:17 07:03 06:08 WBC RBC Hgb Hct MCV MCH MCHC RDW Plt Count MPV Gran % Immature Gran % (Auto) Nucleat RBC Rel Count Eos # (Auto) Immature Gran # (Auto) Absolute Lymphs (auto) Absolute Monos (auto) Absolute Nucleated RBC Lymphocytes % Monocytes % Eosinophils % Basophils % Absolute Granulocytes Basophils # Sodium 136 L Potassium 4.2 Chloride 101 Carbon Dioxide 29 Anion Gap 10.6 BUN 8 L Creatinine 0.75 Estimated GFR > 60.0 Glucose 156 H POC Glucometer 165 H 148 H Calcium 8.3 L Magnesium 2.1 07/05/22 07/04/22 07/04/22 06:08 21:07 16:17 WBC 11.3 H RBC 4.76 Hgb 13.9 Hct 44.5 MCV 93.5 MCH 29.2 MCHC 31.2 L RDW 14.7 H Plt Count 423 MPV 9.9 Gran % 76.7 H Immature Gran % (Auto) 0.4 Nucleat RBC Rel Count 0.0 Eos # (Auto) 0.04 Immature Gran # (Auto) 0.05 H Absolute Lymphs (auto) 2.00 Absolute Monos (auto) 0.50 Absolute Nucleated RBC 0.00 Lymphocytes % 17.6 L Monocytes % 4.4 Eosinophils % 0.4 Basophils % 0.5 Absolute Granulocytes 8.69 H Basophils # 0.06 Sodium Potassium Chloride Carbon Dioxide Anion Gap BUN Creatinine Estimated GFR Glucose POC Glucometer 245 H 191 H Calcium Magnesium Orders (Last 24 hours) Category Date Time Status BMP AM.LAB Lab 07/05/22 06:08 Completed CBC W DIFF AM.LAB Lab 07/05/22 06:08 Completed MAGNESIUM AM.LAB Lab 07/05/22 06:08 Completed POCT GLUCOSE Stat Lab 07/04/22 16:17 Completed POCT GLUCOSE Stat Lab 07/04/22 21:07 Completed POCT GLUCOSE Stat Lab 07/05/22 07:03 Completed POCT GLUCOSE Stat Lab 07/05/22 11:17 Completed Hydromorphone HCl 30 mg/30 ml* [Dilaudid 1 mg/1Ml PSYCHOLOGIST CHIEF Med 07/04/22 14:20 Discontinued *] 30 mg .ROUTE .STK-MED ONE Hydromorphone HCl 30 mg/30 ml* [Dilaudid 1 mg/1Ml PSYCHOLOGIST CHIEF Med 07/04/22 14:26 Discontinued *] 30 mg .ROUTE .STK-MED ONE Hydromorphone HCl 30 mg/30 ml* [Dilaudid 1 mg/1Ml PSYCHOLOGIST CHIEF Med 07/05/22 08:55 Active *] 30 mg IV UD PRN Patient Care Notes (Last 24 hours) 07/05/22 06:00 Nursing Note by Karli Ramirez PSYCHOLOGIST CHIEF end of shift assessment; pt alert and oriented x 4, Sp02 98% RA, RR 18, Pain 7/10. End of shift PSYCHOLOGIST CHIEF totals; total 15.75mg, total demands 27, total delivered 26. Pt medicated with Msir scheduled pain medication for breakthrough pain. Initialized on 07/05/22 06:00 - END OF NOTE 07/05/22 00:00 (created 07/05/22 03:46) Nursing Note by Karli Ramirez PSYCHOLOGIST CHIEF assessment; pt wide awake, rates pain at 7/10 RR 18, 02 97% on room air. Pt scheduled Msir given for breakthrough pain. Initialized on 07/05/22 03:46 - END OF NOTE 07/05/22 00:00 (created 07/05/22 03:46) Nursing Note by Karli Ramirez PSYCHOLOGIST CHIEF pump Initialized on 07/05/22 03:46 - END OF NOTE 07/04/22 19:39 Nursing Note by Tejal Daniels End of Shift Assessment with Jazmyn Dixon RN. Total Medication: 19.94. Demands: 37 Delivered: 33. Initialized on 07/04/22 19:39 - END OF NOTE Code(s): G03.0 - NONPYOGENIC MENINGITIS (2) Cephalgia Current Visit: No Status: Acute Onset Date: ~11/01/18 Qualifiers: Headache type: unspecified Code(s): R51 - HEADACHE * DO NOT USE *
[2022-07-05] MEDS: HUMALOG SQ PRN ×2 (17:21→21:15)
[2022-07-05] MEDS: Vasotec 10 MG PO SCH (21:15)
[2022-07-05] MEDS: Protonix 40MG Tablet PO SCH (21:15)
[2022-07-05] MEDS: Zocor 10MG PO SCH (21:15)
[2022-07-05] MEDS: Sodium Chloride 0.9% W/ 20 mEq KCl/LITER 1,000 ML IV SCH (21:49)
[2022-07-06] MEDS: MSIR 15 MG PO SCH ×2 (00:04→06:05)
[2022-07-06] MEDS: solu-CORTEF 100MG IV SCH (02:32)
[2022-07-06] MEDS: Sterile H2O 10 ml IJ SCH (02:32)
[2022-07-06] MEDS: DILAUDID 1 MG/1ML PCA IV PRN (05:55)
[2022-07-06] MEDS: SODIUM CHLORIDE MINI IV SCH (06:05)
[2022-07-06] MEDS: ZOVIRAX IV SCH (06:05)
[2022-07-06 07:28] VITALS: BP 134/61; PULSE 80
[2022-07-06 07:53] VITALS: O2SAT 98
--- NOTE | 2022-07-06 09:13 | PCM.DS ---
Discharge Summary Date of Admission: 07/02/22 09:20 Admitting Physician: KIMBERLEE OLMOS Primary Care Provider: ANN ALEXIS Allergies Allergies pregabalin [From Lyrica] Adverse Reaction (Severe, Verified 07/01/22 19:54) Hives SOB hives azithromycin [From Zmax] Adverse Reaction (Mild, Verified 07/01/22 19:54) vomiting Hospital Summary - Hospital Course Hospital Course: Chief Complaint Diagnosis MOLLARET'S MENINGITIS FLARE Allergies Allergy/AdvReac Type Severity Reaction Status Date / Time pregabalin [From Lyrica] AdvReac Severe Hives Verified 07/01/22 19:54 azithromycin [From Zmax] AdvReac Mild Verified 07/01/22 19:54 Vital Signs (Last 24 hours) Temp Pulse Resp BP Pulse Ox 07/06/22 07:53 98 07/06/22 07:27 97.4 F 80 18 134/61 97 07/06/22 05:55 18 96 07/06/22 04:00 97.1 F 70 18 127/65 96 07/06/22 02:59 18 99 07/06/22 00:00 97.3 F 70 20 132/73 96 07/05/22 22:59 18 97 07/05/22 20:00 97.3 F 81 17 142/80 99 07/05/22 19:40 99 07/05/22 18:59 16 97 07/05/22 16:00 97.5 F 91 H 18 107/57 97 07/05/22 14:59 20 96 07/05/22 12:00 97.3 F 84 20 122/74 98 07/05/22 10:59 16 98 Home Medications Medication Instructions Recorded Confirmed Last Taken Type Omeprazole 20 mg PO HS 07/01/22 07/01/22 07/01/22 History Acyclovir 800 mg [Acyclovir] 800 mg PO TID 30 Days #90 tablet 07/06/22 Unknown Rx Prednisone 20 mg [Deltasone 20 20 mg PO UD 11 Days #20 tablet 07/06/22 Unknown Rx mg] Tobramycin/Dexamethasone [Tobradex 2 drops OP QID 7 Days #5 ml 07/06/22 Unknown Rx Eye Drops] Current Medications Generic Name Dose Route Start Last Admin Trade Name Freq PRN Reason Stop Dose Admin Aspirin 81 mg 08/31/22 11:00 07/05/22 09:17 Aspirin 81 Mg Tablet.Ec PO 08/01/22 10:59 81 mg DAILY GLENNA Administration Duloxetine HCl 60 mg 07/02/22 11:00 07/05/22 21:15 Duloxetine Hcl 30 Mg Cap PO 08/01/22 10:59 60 mg BID GLENNA Administration Enalapril Maleate 20 mg 07/02/22 22:00 07/05/22 21:15 Enalapril Maleate 10 Mg 10 Mg Tablet PO 08/01/22 21:59 20 mg HS GLENNA Administration Hydrocortisone Sodium Succinate 100 mg 07/02/22 10:00 07/06/22 02:32 Hydrocortisone Sod Succinate 100 Mg/Vial Vial IV 08/01/22 09:59 100 mg Q8H GLENNA Administration Hydromorphone HCl 30 mg 07/05/22 08:55 07/06/22 05:55 Hydromorphone Hcl 30 Mg/30 Ml Detective Lieutenant Vial IV 07/10/22 08:54 30 mg UD PRN Administration PAIN Acyclovir Sodium 500 mg/ 100 mls @ 100 mls/hr 07/02/22 14:00 07/06/22 06:05 Sodium Chloride IV 08/01/22 13:59 100 mls/hr Q8HT GLENNA Administration Sodium Chloride 500 mls @ 30 mls/hr 07/04/22 08:45 07/05/22 21:15 Sodium Chloride 0.9% 500 Ml IV 08/03/22 08:44 30 mls/hr .[id number] GLENNA Administration KVO Insulin Human Lispro 0 unit 07/02/22 09:24 07/05/22 21:15 Insulin Lispro 1 Unit SQ 08/01/22 09:23 7 unit UD PRN Administration HYPERGLYCEMIA Mineral Oil 30 ml 07/02/22 10:00 07/05/22 21:16 Mineral Oil 1 Ml Ml PO 08/01/22 09:59 30 ml TID GLENNA Administration Morphine Sulfate 15 mg 07/02/22 12:00 07/06/22 06:05 Morphine Sulfate 15 Mg Tablet Immediate Release PO 07/07/22 11:59 15 mg Q6HT GLENNA Administration Multivitamins Therapeutic 1 tab 07/02/22 11:00 07/05/22 09:17 Multivitamins,Therapeutic 1 Tab Tab PO 08/01/22 10:59 1 tab DAILY GLENNA Administration Pantoprazole Sodium 40 mg 07/02/22 22:00 07/05/22 21:15 Protonix (Pantoprazole) 40 Mg Tablet PO 08/01/22 21:59 40 mg HS GLENNA Administration Simvastatin 10 mg 07/02/22 22:00 07/05/22 21:15 Simvastatin 10 Mg Tablet PO 08/01/22 21:59 10 mg HS GLENNA Administration Sterile Water 2 ml 07/02/22 10:00 07/06/22 02:32 Water For Injection,Sterile 10 Ml Vial IJ 08/01/22 09:59 2 ml Q8H GLENNA Administration Discontinued Medications Generic Name Dose Route Start Last Admin Trade Name Freq PRN Reason Stop Dose Admin Acyclovir Sodium Confirm 07/01/22 23:45 Acyclovir Sodium 500 Mg/Vial Vial Administered 07/01/22 23:46 Dose 500 mg IV .STK-MED ONE Hydromorphone HCl 1 mg 07/01/22 21:45 07/01/22 21:50 Hydromorphone 1 Mg/1ml Inj 1 Mg/Ml Syringe IV 07/01/22 21:46 1 mg STAT ONE Administration Hydromorphone HCl Confirm 07/01/22 21:49 Hydromorphone 1 Mg/1ml Inj 1 Mg/Ml Syringe Administered 07/01/22 21:50 Dose 1 mg .ROUTE .STK-MED ONE Hydromorphone HCl 30 mg 07/01/22 23:16 Hydromorphone Hcl 30 Mg/30 Ml Detective Lieutenant Vial IV 07/06/22 23:15 UD PRN PAIN Hydromorphone HCl 1 mg 07/01/22 23:22 07/01/22 23:54 Hydromorphone 1 Mg/1ml Inj 1 Mg/Ml Syringe IV 07/01/22 23:23 1 mg STAT ONE Administration Hydromorphone HCl Confirm 07/01/22 23:45 Hydromorphone 1 Mg/1ml Inj 1 Mg/Ml Syringe Administered 07/01/22 23:46 Dose 1 mg .ROUTE .STK-MED ONE Hydromorphone HCl 30 mg 07/02/22 02:07 07/04/22 14:27 Hydromorphone Hcl 30 Mg/30 Ml Detective Lieutenant Vial IV 07/07/22 02:06 30 mg UD PRN Administration PAIN Hydromorphone HCl Confirm 07/04/22 14:20 Hydromorphone Hcl 30 Mg/30 Ml Detective Lieutenant Vial Administered 07/04/22 14:21 Dose 30 mg .ROUTE .STK-MED ONE Hydromorphone HCl Confirm 07/04/22 14:26 Hydromorphone Hcl 30 Mg/30 Ml Detective Lieutenant Vial Administered 07/04/22 14:27 Dose 30 mg .ROUTE .STK-MED ONE Acyclovir Sodium 500 mg/ 100 mls @ 100 mls/hr 07/01/22 23:30 07/01/22 23:54 Sodium Chloride IV 07/31/22 23:29 100 mls/hr Q8H GLENNA Administration Sodium Chloride Confirm 07/01/22 23:47 Sodium Chloride 0.9% Administered 07/01/22 23:48 Dose 100 mls @ ud .ROUTE .STK-MED ONE Acyclovir Sodium 500 mg/ 100 mls @ 100 mls/hr 07/02/22 02:15 07/02/22 02:39 Sodium Chloride IV 08/01/22 02:14 Not Given Q8H GLENNA Sodium Chloride Confirm 07/02/22 02:18 Sodium Chloride 0.9% 1000 Ml Administered 07/02/22 02:19 Dose 1,000 mls @ ud .ROUTE .STK-MED ONE Acyclovir Sodium 500 mg/ 100 mls @ 100 mls/hr 07/02/22 07:00 07/02/22 08:16 Sodium Chloride IV 08/01/22 06:59 100 mls/hr Q8HT GLENNA Administration Potassium Chloride/Sodium Chloride 1,000 mls @ 50 mls/hr 07/02/22 09:30 07/05/22 21:49 Sodium Chloride 0.9% W/ 20 Meq Kcl/Liter IV 08/01/22 09:29 Not Given .Q20H GLENNA Ondansetron HCl 4 mg 07/01/22 21:46 07/01/22 21:49 Ondansetron Hcl 4 Mg/2 Ml Vial IV 07/01/22 21:47 4 mg STAT ONE Administration Ondansetron HCl Confirm 07/01/22 21:49 Ondansetron Hcl 4 Mg/2 Ml Vial Administered 07/01/22 21:50 Dose 4 mg .ROUTE .STK-MED ONE Intake & Output (Last 24 hours) 07/03/22 07/04/22 07/05/22 07/06/22 11:59 11:59 11:59 11:59 Intake Total 3102 1140 2687 1920 Output Total 4250 4100 2423 2358 Balance -8655 -9495 262 -430 Weight 112.7 kg Laboratory Results (Last 24 hours) 07/06/22 07/05/22 07/05/22 07:03 20:54 16:21 POC Glucometer 134 H 261 H 250 H 07/05/22 11:17 POC Glucometer 165 H Orders (Last 24 hours) Category Date Time Status Discharge Routine Discharge 07/06/22 Ordered POCT GLUCOSE Stat Lab 07/05/22 11:17 Completed POCT GLUCOSE Stat Lab 07/05/22 16:21 Completed POCT GLUCOSE Stat Lab 07/05/22 20:54 Completed POCT GLUCOSE Stat Lab 07/06/22 07:03 Completed Hydromorphone HCl 30 mg/30 ml* [Dilaudid 1 mg/1Ml OPEN SOAPER TENDER Med 07/05/22 08:55 Active *] 30 mg IV UD PRN - Vitals & Intake/Output Vital Signs: Vital Signs Temperature 97.4 F 07/06/22 07:27 Pulse Rate 80 07/06/22 07:27 Respiratory Rate 18 07/06/22 07:27 Blood Pressure 134/61 07/06/22 07:27 O2 Sat by Pulse Oximetry 98 07/06/22 07:53 Intake & Output: Intake & Output 07/03/22 07/04/22 07/05/22 07/06/22 11:59 11:59 11:59 11:59 Intake Total 3102 1140 2687 1920 Output Total 4250 4100 2424 2356 Balance -4406 -1457 262 430 Weight 112.7 kg - Lab Result Diagrams: 07/05/22 06:08 07/05/22 06:08 Lab Results-Last 24 Hrs: Lab Results-Last 24 Hours 07/05/22 07/05/22 07/05/22 Range/Units 11:17 16:21 20:54 POC Glucometer 165 H 250 H 261 H (74 to 106) mg/dL 07/06/22 Range/Units 07:03 POC Glucometer 134 H (74 to 106) mg/dL Micro Results-Entire Visit: Accuchecks Date 07/06/22 Date 07/05/22 Date 07/05/22 Date 07/05/22 Time 07:03 Time 16:25 Time 16:25 Time 11:17 Discharge Exam General Appearance: no apparent distress, alert Neurologic Exam: alert, oriented x 3, cooperative, normal mood/affect, nml cerebellar function, sensation nml, No motor deficits Eye Exam: PERRL, EOMI, eyes nml inspection Ears, Nose, Throat Exam: normal ENT inspection, pharynx normal, moist mucous membranes Neck Exam: normal inspection, non-tender, supple, full range of motion Respiratory Exam: normal breath sounds, lungs clear, No respiratory distress Cardiovascular Exam: regular rate/rhythm, normal heart sounds Gastrointestinal/Abdomen Exam: soft, No tenderness, No mass Male Genitalia Exam: deferred Rectal Exam: deferred Back Exam: normal inspection, normal range of motion, No CVA tenderness, No vertebral tenderness Extremity Exam: normal inspection, normal range of motion Skin Exam: normal color, warm, dry Final Diagnosis/Problem List - Final Discharge Diagnosis/Problem (1) Aseptic meningitis Current Visit: Yes Status: Acute Code(s): G03.0 - NONPYOGENIC MENINGITIS (2) Cephalgia Current Visit: Yes Status: Acute Onset Date: ~11/01/18 Code(s): R51 - HEADACHE * DO NOT USE * - Discharge Discharge Date: 07/06/22 Disposition: Home, Self-Care Condition: Stable Prescriptions: New Acyclovir 800 mg [Acyclovir] 800 mg PO TID 30 Days #90 tablet Prednisone 20 mg [Deltasone 20 mg] 20 mg PO UD 11 Days #20 tablet Tobramycin/Dexamethasone [Tobradex Eye Drops] 2 drops OP QID 7 Days #5 ml Continue Enalapril Maleate 10 mg [Vasotec 10 MG] 20 mg PO HS Multivitamin [Multi-Vitamin Daily] 1 each PO DAILY Aspirin 81 mg PO DAILY Mineral Oil 30 ml PO TID Testosterone Cypionate 1.25 ml IM UD Duloxetine HCl [Cymbalta] 60 mg PO BID Prednisone 10 mg [Deltasone 10 mg] 15 mg PO DAILY Morphine Sulfate/Pf [Morphine 10 mg/10 ml Vial] 15.6 mg IJ DAILY L.acidoph,Paracasei, B.lactis [Probiotic] 2 each PO DAILY Metformin HCl 500 mg [Glucophage 500 MG] 1,000 mg PO BIDWM Atorvastatin Calcium [Lipitor] 10 mg PO HS Morphine Sulfate Ir 15 mg [Msir 15 mg] 15 mg PO Q6H Omeprazole 20 mg PO HS Instructions: Aseptic Meningitis (DC) Follow up with: ANN ALEXIS MD [Primary Care Provider] - 7 Days
== END 2022-07-06 10:10 | disposition home or self-care (01) | DRG 99 ==
LOC: ED 18:10 → MED SURG 07-02 02:03 → OBSVTOIN 07-02 09:20
PROVIDERS: ADMIT Family Medicine; ATTEND Family Medicine
DX: G03.0 Nonpyogenic meningitis (principal); I10 Essential (primary) hypertension; M54.2 Cervicalgia; R53.1 Weakness; Z79.899 Other long term (current) drug therapy; Z20.828 Contact with and (suspected) exposure to other viral communicable diseases
CPT/HCPCS: 0241U; 36415; 80048; 80053; 82947; 83036; 83605; 83735; 85025; 93268; 94762; 96374; 96375; 96376; 99285; J0133; J1170; J1720; J1817; J2405; A9270-GY

== ENCOUNTER 2022-07-30 10:58 | Inpatient (IN) | payer MEDICARE, BC ==
--- NOTE | 2022-07-30 11:19 | ERPHSYRPT ---
- History of Present Illness Time Seen by Provider: 07/30/22 11:10 Source: patient Exam Limitations: no limitations Patient Subjective Stated Complaint: Pt states "I had viral meningitis and I get flair ups and I am having a bad one. My neck and lower back are hurting and now I am starting to get numb in my upper legs. My lower legs are numb from this and it is now moving to my upper thighs." Triage Nursing Assessment: Pt presented alert and oriented X 3, skin pwd. Pt ambulates with an upright gait with a limp. Pt resting comfortably on the bed. Physician History: This is a 52-year-old white male patient of Dr. 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 He usually has episodes every 1 to 2 months. He became concerned because the severe headache that he is having in the neck pain that he typically has traveled a bit to his lower back and he is having some achiness in his legs. This has occurred in the past with significant recurrence. He has no chest pain. He is not short of breath. He has no abdominal pain. He has not had any fevers. He denies cough. I spoke with Dr. Alexis and we will bring him in the hospital after performing a COVID test. We will place him on acyclovir, Solu-Cortef and Dilaudid SHIFT BOSS pump. We will check labs as well. His symptoms that he presents with began approximately 2 days ago Timing/Duration: day(s) (2) Quality: aching, cramping Head Pain Location: global Severity of Pain-Max: moderate Severity of Pain-Current: moderate Recent Head Trauma: no recent headache/trauma, occasional headaches Associated Symptoms: nausea/vomiting, neck pain, stiff neck, No confusion, No dizziness, No fever/chills, No sensitive to light Previous symptoms: same symptoms as today, other (Seen in the emergency department and hospitalized approximately 1 month ago) Allergies/Adverse Reactions: pregabalin [From Lyrica] Adverse Reaction (Severe, Verified 07/01/22 19:54) Hives SOB hives azithromycin [From Zmax] Adverse Reaction (Mild, Verified 07/01/22 19:54) vomiting Home Medications: Aspirin 81 mg PO DAILY 01/24/14 [History] Enalapril Maleate 10 mg [Vasotec 10 MG] 20 mg PO HS 01/24/14 [History] Mineral Oil 30 ml PO TID 01/24/14 [History] Multivitamin [Multi-Vitamin Daily] 1 each PO DAILY 01/24/14 [History] Testosterone Cypionate 1.25 ml IM UD 10/09/14 [History] Duloxetine HCl [Cymbalta] 60 mg PO BID 04/23/15 [History] Prednisone 10 mg [Deltasone 10 mg] 15 mg PO DAILY 04/23/15 [History] Morphine Sulfate/Pf [Morphine 10 mg/10 ml Vial] 15.6 mg IJ DAILY 07/29/19 [History] L.acidoph,Paracasei, B.lactis [Probiotic] 2 each PO DAILY 10/23/19 [History] Metformin HCl 500 mg [Glucophage 500 MG] 1,000 mg PO BIDWM 04/20/20 [History] Atorvastatin Calcium [Lipitor] 10 mg PO HS 01/06/22 [History] Morphine Sulfate Ir 15 mg [Msir 15 mg] 15 mg PO Q6H 02/07/22 [History] Omeprazole 20 mg PO HS 07/01/22 [History] Hx Tetanus, Diphtheria Vaccination/Date Given: Yes (february 2016) Hx Influenza Vaccination/Date Given: No Hx Pneumococcal Vaccination/Date Given: Yes Immunizations Up to Date: Yes Travel Risk - International Travel Have you traveled outside of the country in past 3 weeks: No - Coronavirus Screening Are you exhibiting any of the following symptoms?: No Close contact with a COVID-19 positive Pt in past 14-21 Days: No - Vaccine Status Have you recieved a Covid-19 vaccination: Yes Seed Pelleter: Helveta - Vaccination Dates Dates if Unknown: ? - Review of Systems Constitutional: No Symptoms Eyes: No Symptoms Ears, Nose, & Throat: No Symptoms Respiratory: No Symptoms Cardiac: No Symptoms Abdominal/Gastrointestinal: No Symptoms Genitourinary Symptoms: No Symptoms Musculoskeletal: Back Pain, Neck Pain, Other (Cramping in his bilateral thighs) Skin: No Symptoms Neurological: Headache Psychological: No Symptoms Endocrine: No Symptoms Hematologic/Lymphatic: No Symptoms Immunological/Allergic: No Symptoms All Other Systems: Reviewed and Negative - Past Medical History Pertinent Past Medical History: Yes Neurological History: Other ENT History: No Pertinent History Cardiac History: Hypertension Respiratory History: No Pertinent History Endocrine Medical History: No Pertinent History Musculoskeletal History: No Pertinent History GI Medical History: Other History: No Pertinent History Psycho-Social History: Depression Male Reproductive Disorders: No Pertinent History Other Medical History: Mollaret's, spleen removed - Past Surgical History Past Surgical History: Yes Neuro Surgical History: No Pertinent History Cardiac: No Pertinent History Respiratory: No Pertinent History Gastrointestinal: Appendectomy, Other Genitourinary: No Pertinent History Musculoskeletal: No Pertinent History Male Surgical History: Vasectomy Other Surgical History: splenectomy, 2 nasal surgeries - Social History Smoking Status: Never smoker Exposure to second hand smoke: No Alcohol Use: None Drug Use: none Patient Lives Alone: No Significant Family History: no pertinent family hx - Nursing Vital Signs Nursing Vital Signs: Initial Vital Signs Temperature 98.7 F 07/30/22 11:03 Pulse Rate 92 H 07/30/22 11:03 Respiratory Rate 07/30/22 11:03 Blood Pressure 140/81 07/30/22 11:03 O2 Sat by Pulse Oximetry 100 07/30/22 11:03 Pain Scale Pain Intensity 7 - Physical Exam General Appearance: mild distress, alert, anxiety Eye Exam: PERRL/EOMI, eyes nml inspection Ears, Nose, Throat Exam: normal ENT inspection, moist mucous membranes Neck Exam: normal inspection, non-tender, supple, full range of motion Respiratory Exam: normal breath sounds, lungs clear, airway intact, No chest tenderness, No respiratory distress Cardiovascular Exam: regular rate/rhythm, normal heart sounds, normal peripheral pulses Gastrointestinal/Abdominal Exam: soft, normal bowel sounds, No tenderness Back Exam: normal inspection, normal range of motion, No CVA tenderness, No vertebral tenderness Extremity Exam: normal inspection, normal range of motion, pelvis stable Mental Status Exam: alert, oriented x 3, cooperative cook morning Exam: normal hearing, normal speech, PERRL Coordination/Gait Exam: normal finger to nose, normal gait, normal cerebellar function Motor/Sensory Exam: no motor deficit, no sensory deficit Skin Exam: normal color, warm, dry Lymphatic Exam: No adenopathy SpO2 Interpretation: normal SpO2: 100 O2 Delivery: Room Air - Course Nursing assessment & vital signs reviewed: Yes Ordered Tests: Active Orders 24 hr Category Date Time Status IV Insertion STAT Care 07/30/22 11:20 Ordered BLOOD CULTURE Stat Lab 07/30/22 11:20 Ordered CBC W DIFF Stat Lab 07/30/22 11:20 Ordered CMP Stat Lab 07/30/22 11:20 Ordered - Progress Progress: improved Air Movement: good Blood Culture(s) Obtained: Yes Antibiotics given: No Discussed with : Ivory Counseled pt/family regarding: lab results, diagnosis - Departure Departure Disposition: Observation Clinical Impression: Mollaret's meningitis Condition: Stable Critical Care Time: No Referrals: ANN ALEXIS MD [Primary Care Provider] - Follow up/PCP as directed
[2022-07-30] MEDS ORDERED: solu-CORTEF 100MG IV ONE (11:20)
[2022-07-30] MEDS ORDERED: Hydromorphone 1 mg/ml Injection IV ONE (11:20)
[2022-07-30] MEDS ORDERED: Zofran 4 MG/2 ML VIAL IV ONE (11:20)
[2022-07-30] MEDS ORDERED: Sodium Chloride 0.9% 1000 ML 1,000 ML IV STA (11:20)
[2022-07-30] MEDS ORDERED: D5W MINI IV ONE (11:21)
[2022-07-30] MEDS ORDERED: ZOVIRAX IV ONE (11:21)
[2022-07-30] MEDS ORDERED: HYDROMORPHONE 30 MG/30 ML-NS IV PRN (11:36)
[2022-07-30 12:12] LABS: Absolute Neutrophil Ct (ANC) 4.88 x10^3/uL (1.4-6.9); Basophil (Absolute #) 0.05 x10^3/uL (0-0.4); Eosinophil % 10.9 % (0.00-5.0); Eosinophil (Absolute #) 0.91 x10^3/uL (0-0.5); Hematocrit 47.9 % (42-50); Hemoglobin 15.4 g/dL (12.5-18.0); Lymphocyte (Absolute #) 1.71 x10^3/uL (1.0-4.6); Lymphocytes % 20.5 % (24.0-44.0); Mean Cell Volume 89.2 fL (78-100); Mean Corpuscular Hemoglobin 28.7 pg (26-32); Mean Corpuscular Hgb Concent. 32.2 g/dL (32-36); Mean Platelet Volume 9.8 fL (7.5-11.0); Monocyte (Absolute #) 0.78 x10^3/uL (0.0-1.3); Monocytes % 9.3 % (0.0-12.0); Neutrophil % 58.3 % (36.0-66.0); Platelet Count 428 x10^3/uL (150-450); Red Blood Count 5.37 x10^6/uL (4.1-5.6); Red Cell Distribution Width 14.1 % (11.5-14.0); White Blood Count 8.4 x10^3/uL (4.0-10.5)
[2022-07-30] MEDS ORDERED: Sodium Chloride 0.9% 1000 ML 1,000 ML ONE (12:23)
[2022-07-30] MEDS ORDERED: Hydromorphone 1 mg/ml Injection ONE (12:23)
[2022-07-30] MEDS ORDERED: Zofran 4 MG/2 ML VIAL ONE (12:23)
[2022-07-30] MEDS ORDERED: solu-CORTEF 100MG ONE (12:23)
[2022-07-30 12:30] LABS: ALBUMIN 4.3 g/dL (3.5-5.0); ALKALINE PHOSPHATASE 91 U/L (38-126); ANION GAP 9.7 MEQ/L (5-15); BLOOD UREA NITROGEN 10 mg/dL (9-20); CHLORIDE 100 mmol/L (98-107); Calcium 8.8 mg/dL (8.4-10.2); Carbon Dioxide 30 mmol/L (22-30); Creatinine 1 0.82 mg/dL (0.66-1.25); EST GLOMERULAR FILTRATION RATE > 60.0 ML/MIN; Glucose 107 mg/dL (74-106); Potassium 4.3 mmol/L (3.5-5.1); SGOT/AST 37 U/L (17-59); SGPT/ALT 37 U/L (0-50); SODIUM 135 mmol/L (137-145); Total Protein 7.2 g/dL (6.3-8.2)
[2022-07-30 12:59] LABS: INFLUENZA A NEGATIVE (NEGATIVE); INFLUENZA B NEGATIVE (NEGATIVE); RESPIRATORY SYNCTIAL VIRUS NEGATIVE (Negative); SARS-CoV-2 Xpert Express NEGATIVE (NEGATIVE)
[2022-07-30] MEDS ORDERED: TYLENOL 325 MG PO PRN (13:24)
[2022-07-30] MEDS ORDERED: Zofran 4 MG/2 ML VIAL IV PRN (13:24)
[2022-07-30] MEDS: Sterile H2O 10 ml IJ SCH ×2 (14:03→22:21)
[2022-07-30] MEDS ORDERED: PATIENT OWN MEDICATION IJ SCH (16:30)
--- NOTE | 2022-07-30 16:42 | PCM.HP ---
History of Present Illness - Chief Complaint Chief Complaint: MOLLARETS MININGITIS History of Present Illness: is a 52 year old male with a history of chronic/recurrent aseptic meningitis (Mollaret's syndrome). He has frequent flares with severe cephalgia and neck pain, he is treated for chronic pain with Dr Greer but during flares will require hospitalization for IV steroids, acyclovir and IV narcotics. He has typical worsening of his pain and symptoms x 2 days, pain has become intolerable so he came to the ER for evaluation. He denies fever, he is tolerating po and does not appear to be in distress as seen on the floor at this time. - Review of Systems Constitutional: No Fever, No Chills Respiratory: No Cough, No Short Of Breath Cardiac: No Chest Pain, No Edema, No Syncope Musculoskeletal: Neck Pain Neurological: Headache, Parasthesia Psychological: Depression All Other Systems: Reviewed and Negative Medications & Allergies Home Medications: Home Medication List Aspirin 81 mg PO DAILY 01/24/14 [History Confirmed 07/30/22] Enalapril Maleate 10 mg [Vasotec 10 MG] 20 mg PO HS 01/24/14 [History Confirmed 07/30/22] Mineral Oil 30 ml PO TID 01/24/14 [History Confirmed 07/30/22] Multivitamin [Multi-Vitamin Daily] 1 each PO DAILY 01/24/14 [History Confirmed 07/30/22] Testosterone Cypionate 1.25 ml IM UD 10/09/14 [History Confirmed 07/30/22] Duloxetine HCl [Cymbalta] 60 mg PO BID 04/23/15 [History Confirmed 07/30/22] Prednisone 10 mg [Deltasone 10 mg] 15 mg PO DAILY 04/23/15 [History Confirmed 07/30/22] Morphine Sulfate/Pf [Morphine 10 mg/10 ml Vial] 15.6 mg IJ DAILY 07/29/19 [History Confirmed 07/30/22] L.acidoph,Paracasei, B.lactis [Probiotic] 2 each PO DAILY 10/23/19 [History Confirmed 07/30/22] Metformin HCl 500 mg [Glucophage 500 MG] 1,000 mg PO BIDWM 04/20/20 [History Confirmed 07/30/22] Atorvastatin Calcium [Lipitor] 10 mg PO HS 01/06/22 [History Confirmed 07/30/22] Morphine Sulfate Ir 15 mg [Msir 15 mg] 15 mg PO Q6H 02/07/22 [History Confirmed 07/30/22] Omeprazole 40 mg PO HS 07/01/22 [History Confirmed 07/30/22] Allergies/Adverse Reactions: Allergies Allergy/AdvReac Type Severity Reaction Status Date / Time pregabalin [From Lyrica] AdvReac Severe Hives Verified 07/30/22 13:51 azithromycin [From Zmax] AdvReac Mild Verified 07/30/22 13:51 - Past Medical History Past Medical History: Yes Neurological History: Other ENT History: No Pertinent History Cardiac History: Hypertension Respiratory History: No Pertinent History Endocrine Medical History: No Pertinent History Musculoskelatal History: No Pertinent History GI Medical History: Other History: No Pertinent History Pyscho-Social History: Depression Male Reproductive Disorders: No Pertinent History Comment: Mollaret's, spleen removed - Past Surgical History Past Surgical History: Yes Neuro Surgical History: No Pertinent History Cardiac History: No Pertinent History Respiratory Surgery: No Pertinent History GI Surgical History: Appendectomy, Other Genitourinary Surgical Hx: No Pertinent History Musculskeletal Surgical Hx: No Pertinent History Male Surgical History: Vasectomy Other Surgical History: splenectomy, 2 nasal surgeries - Social History Smoking Status: Never smoker Exposure to second hand smoke: No Alcohol: None Drug Use: none Significant Family History: no pertinent family hx - Physical Exam Vital Signs: Vital Signs - 24 hr Temp Pulse Resp BP Pulse Ox 07/30/22 16:00 97.5 F 97 H 17 153/95 95 07/30/22 13:57 93 L 07/30/22 13:43 97.7 F 76 16 135/75 92 L 07/30/22 13:10 75 18 114/78 96 07/30/22 12:00 72 16 129/81 95 07/30/22 11:25 100 07/30/22 11:03 98.7 F 92 H 22 140/81 100 General Appearance: no apparent distress, obese Neurologic Exam: alert, oriented x 3 Respiratory Exam: normal breath sounds, lungs clear, No respiratory distress Cardiovascular Exam: regular rate/rhythm, normal heart sounds, normal peripheral pulses Gastrointestinal/Abdomen Exam: soft, normal bowel sounds, No tenderness, No mass Extremity Exam: normal inspection, normal range of motion, pelvis stable Skin Exam: normal color, warm, dry, No rash Results - Labs Lab/Micro Results: Lab Results-Last 24 Hours 07/30/22 07/30/22 07/30/22 Range/Units 11:57 11:57 11:57 WBC 8.4 (4.0-10.5) x10^3/uL RBC 5.37 (4.1-5.6) x10^6/uL Hgb 15.4 (12.5-18.0) g/dL Hct 47.9 (42-50) % MCV 89.2 (78-100) fL MCH 28.7 (26-32) pg MCHC 32.2 (32-36) g/dL RDW 14.1 H (11.5-14.0) % Plt Count 428 (150-450) x10^3/uL MPV 9.8 (7.5-11.0) fL Gran % 58.3 (36.0-66.0) % Immature Gran % (Auto) 0.4 (0.00-0.4) % Nucleat RBC Rel Count 0.0 (0.00-0.1) % Eos # (Auto) 0.91 H (0-0.5) x10^3/uL Immature Gran # (Auto) 0.03 (0.00-0.03) x10^3u/L Absolute Lymphs (auto) 1.71 (1.0-4.6) x10^3/uL Absolute Monos (auto) 0.78 (0.0-1.3) x10^3/uL Absolute Nucleated RBC 0.00 (0.00-0.01) x10^3u/L Lymphocytes % 20.5 L (24.0-44.0) % Monocytes % 9.3 (0.0-12.0) % Eosinophils % 10.9 H (0.00-5.0) % Basophils % 0.6 (0.0-0.4) % Absolute Granulocytes 4.88 (1.4-6.9) x10^3/uL Basophils # 0.05 (0-0.4) x10^3/uL Sodium 135 L (137-145) mmol/L Potassium 4.3 (3.5-5.1) mmol/L Chloride 100 (98-107) mmol/L Carbon Dioxide 30 (22-30) mmol/L Anion Gap 9.7 (5-15) MEQ/L BUN 10 (9-20) mg/dL Creatinine 0.82 (0.66-1.25) mg/dL Estimated GFR > 60.0 ML/MIN Glucose 107 H (74-106) mg/dL POC Glucometer (74 to 106) mg/dL Calcium 8.8 (8.4-10.2) mg/dL Total Bilirubin 0.40 (0.2-1.3) mg/dL AST 37 (17-59) U/L ALT 37 (0-50) U/L Alkaline Phosphatase 91 (38-126) U/L Serum Total Protein 7.2 (6.3-8.2) g/dL Albumin 4.3 (3.5-5.0) g/dL Influenza Type A Ag NEGATIVE (NEGATIVE) Influenza Type B Ag NEGATIVE (NEGATIVE) RSV (PCR) NEGATIVE (Negative) SARS-CoV-2 (PCR) NEGATIVE (NEGATIVE) 07/30/22 Range/Units 16:05 WBC (4.0-10.5) x10^3/uL RBC (4.1-5.6) x10^6/uL Hgb (12.5-18.0) g/dL Hct (42-50) % MCV (78-100) fL MCH (26-32) pg MCHC (32-36) g/dL RDW (11.5-14.0) % Plt Count (150-450) x10^3/uL MPV (7.5-11.0) fL Gran % (36.0-66.0) % Immature Gran % (Auto) (0.00-0.4) % Nucleat RBC Rel Count (0.00-0.1) % Eos # (Auto) (0-0.5) x10^3/uL Immature Gran # (Auto) (0.00-0.03) x10^3u/L Absolute Lymphs (auto) (1.0-4.6) x10^3/uL Absolute Monos (auto) (0.0-1.3) x10^3/uL Absolute Nucleated RBC (0.00-0.01) x10^3u/L Lymphocytes % (24.0-44.0) % Monocytes % (0.0-12.0) % Eosinophils % (0.00-5.0) % Basophils % (0.0-0.4) % Absolute Granulocytes (1.4-6.9) x10^3/uL Basophils # (0-0.4) x10^3/uL Sodium (137-145) mmol/L Potassium (3.5-5.1) mmol/L Chloride (98-107) mmol/L Carbon Dioxide (22-30) mmol/L Anion Gap (5-15) MEQ/L BUN (9-20) mg/dL Creatinine (0.66-1.25) mg/dL Estimated GFR ML/MIN Glucose (74-106) mg/dL POC Glucometer 321 H (74 to 106) mg/dL Calcium (8.4-10.2) mg/dL Total Bilirubin (0.2-1.3) mg/dL AST (17-59) U/L ALT (0-50) U/L Alkaline Phosphatase (38-126) U/L Serum Total Protein (6.3-8.2) g/dL Albumin (3.5-5.0) g/dL Influenza Type A Ag (NEGATIVE) Influenza Type B Ag (NEGATIVE) RSV (PCR) (Negative) SARS-CoV-2 (PCR) (NEGATIVE) Accuchecks Date 07/30/22 Assessment/Plan (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 Onset Date: ~11/01/18 Assessment & Plan: IV acyclovir, solu cortef and dilaudid [employer]IEF are ordered at this time. will monitor but often takes 2-3 days for symptoms to improve on this regimen to return to home on usual meds. Code(s): G03.2 - BENIGN RECURRENT MENINGITIS [MOLLARET] (2) Cephalgia Current Visit: No Status: Acute Onset Date: ~11/01/18 Code(s): R51 - HEADACHE * DO NOT USE * (3) Diabetes mellitus Current Visit: No Status: Chronic Qualifiers: Assessment & Plan: will cover with SSI due to steroid administration resulting in hyperglycemia Code(s): E11.9 - TYPE 2 DIABETES MELLITUS WITHOUT COMPLICATIONS
[2022-07-30] MEDS: Glucophage 500 MG PO SCH (17:10)
[2022-07-30] MEDS: HUMALOG SQ PRN (17:10)
[2022-07-30] MEDS: MINERAL OIL PO SCH ×2 (17:10→22:29)
[2022-07-30] MEDS: MSIR 15 MG PO SCH ×2 (17:11→23:56)
[2022-07-30] MEDS ORDERED: NON-FORMULARY ITEM (Atorvastatin Calcium 10 MG Tablet) PO SCH (22:00)
[2022-07-30] MEDS ORDERED: ENALAPRIL MALEATE 10 MG PO SCH (22:00)
[2022-07-30] MEDS ORDERED: NON-FORMULARY ITEM (Omeprazole [Omeprazole] 20 MG Capsule.Dr) PO SCH (22:00)
[2022-07-30] MEDS ORDERED: NON-FORMULARY ITEM (Duloxetine Hcl [Cymbalta] 60 MG Capsule.Dr) PO SCH (22:00)
[2022-07-30] MEDS: SODIUM CHLORIDE 0.9% IV SCH (22:18)
[2022-07-30] MEDS: ZOVIRAX IV SCH (22:18)
[2022-07-30] MEDS: Cymbalta 30 MG Capsule PO SCH (22:20)
[2022-07-30] MEDS: solu-CORTEF 100MG IV SCH (22:20)
[2022-07-30] MEDS: Vasotec 10 MG PO SCH (22:21)
[2022-07-30] MEDS: Protonix 40MG Tablet PO SCH (22:21)
[2022-07-30] MEDS: Zocor 10MG PO SCH (22:21)
[2022-07-30] MEDS: Sodium Chloride 0.9% 1000 ML 1,000 ML IV SCH (23:58)
[2022-07-31 05:16] LABS: Absolute Neutrophil Ct (ANC) 7.45 x10^3/uL (1.4-6.9); Basophil (Absolute #) 0.06 x10^3/uL (0-0.4); Eosinophil % 0.4 % (0.00-5.0); Eosinophil (Absolute #) 0.04 x10^3/uL (0-0.5); Hematocrit 43.2 % (42-50); Hemoglobin 14.1 g/dL (12.5-18.0); Lymphocyte (Absolute #) 2.51 x10^3/uL (1.0-4.6); Lymphocytes % 23.4 % (24.0-44.0); Mean Corpuscular Hemoglobin 28.7 pg (26-32); Mean Corpuscular Hgb Concent. 32.6 g/dL (32-36); Mean Platelet Volume 9.8 fL (7.5-11.0); Monocyte (Absolute #) 0.61 x10^3/uL (0.0-1.3); Monocytes % 5.7 % (0.0-12.0); Neutrophil % 69.5 % (36.0-66.0); Platelet Count 424 x10^3/uL (150-450); Red Blood Count 4.91 x10^6/uL (4.1-5.6); Red Cell Distribution Width 14.1 % (11.5-14.0); White Blood Count 10.7 x10^3/uL (4.0-10.5)
[2022-07-31] MEDS: HYDROMORPHONE 30 MG/30 ML-NS IV PRN ×2 (05:33→21:08)
[2022-07-31 05:50] LABS: ALBUMIN 4.1 g/dL (3.5-5.0); ALKALINE PHOSPHATASE 81 U/L (38-126); ANION GAP 10.9 MEQ/L (5-15); BLOOD UREA NITROGEN 12 mg/dL (9-20); CHLORIDE 101 mmol/L (98-107); Calcium 8.7 mg/dL (8.4-10.2); Carbon Dioxide 27 mmol/L (22-30); Creatinine 1 0.88 mg/dL (0.66-1.25); EST GLOMERULAR FILTRATION RATE > 60.0 ML/MIN; Glucose 113 mg/dL (74-106); Potassium 4.5 mmol/L (3.5-5.1); SGOT/AST 29 U/L (17-59); SGPT/ALT 34 U/L (0-50); SODIUM 135 mmol/L (137-145); Total Protein 6.9 g/dL (6.3-8.2)
[2022-07-31] MEDS: ZOVIRAX IV SCH ×3 (05:53→21:41)
[2022-07-31] MEDS: MSIR 15 MG PO SCH ×4 (05:53→23:52)
[2022-07-31] MEDS: SODIUM CHLORIDE 0.9% IV SCH ×3 (05:53→21:41)
[2022-07-31] MEDS: solu-CORTEF 100MG IV SCH ×3 (05:54→21:40)
[2022-07-31] MEDS: Sterile H2O 10 ml IJ SCH ×3 (05:54→21:45)
[2022-07-31] MEDS: ECOTRIN 81 MG PO SCH (08:19)
[2022-07-31] MEDS: Cymbalta 30 MG Capsule PO SCH ×2 (08:19→21:41)
[2022-07-31] MEDS: Acidophilus TABLET PO SCH (08:19)
[2022-07-31] MEDS: MINERAL OIL PO SCH ×3 (08:21→21:36)
[2022-07-31] MEDS: Glucophage 500 MG PO SCH ×2 (08:34→17:56)
--- NOTE | 2022-07-31 08:41 | PCM.NOTE ---
Date and Time: 07/31/22838 Subjective Assessment: patient notes he feels about the same as last evening, didn't sleep well due to pain. he is reciving IV dilaudid, he is asking about PT as in the past he states he used to have some sort of treatment for leg pain with burning and numbness that was helpful Objective Exam General Appearance: no apparent distress, obese Neurologic Exam: oriented x 3 Respiratory Exam: normal breath sounds, lungs clear, No respiratory distress Cardiovascular Exam: regular rate/rhythm, normal heart sounds Gastrointestinal/Abdomen Exam: soft, No tenderness, No mass OBJECTIVE DATA Vital Signs: Vital Signs - 24 hr Temp Pulse Resp BP Pulse Ox 07/31/22 07:10 97.4 F 78 17 119/60 95 07/31/22 06:40 95 07/31/22 05:33 20 98 07/31/22 04:00 97.7 F 77 20 124/66 98 07/30/22 23:42 98.2 F 83 18 127/69 96 07/30/22 19:30 98.3 F 88 19 121/60 97 07/30/22 18:55 97 07/30/22 16:00 97.5 F 97 H 17 153/95 95 07/30/22 13:57 93 L 07/30/22 13:43 97.7 F 76 16 135/75 92 L 07/30/22 13:10 75 18 114/78 96 07/30/22 12:00 72 16 129/81 95 07/30/22 11:25 100 07/30/22 11:03 98.7 F 92 H 22 140/81 100 Pain Assessment - Last Documented Pain Intensity 6 Pain Scale Used 0-10 Pain Scale Intake and Output: Intake & Output 07/28/22 07/29/22 07/30/22 07/31/22 11:59 11:59 11:59 11:59 Intake Total 3254 Output Total 3500 Balance -246 Weight 111.7 kg 110.8 kg Lab Results: Lab Results-Last 24 Hours 07/30/22 07/30/22 07/30/22 Range/Units 11:57 11:57 11:57 WBC 8.4 (4.0-10.5) x10^3/uL RBC 5.37 (4.1-5.6) x10^6/uL Hgb 15.4 (12.5-18.0) g/dL Hct 47.9 (42-50) % MCV 89.2 (78-100) fL MCH 28.7 (26-32) pg MCHC 32.2 (32-36) g/dL RDW 14.1 H (11.5-14.0) % Plt Count 428 (150-450) x10^3/uL MPV 9.8 (7.5-11.0) fL Gran % 58.3 (36.0-66.0) % Immature Gran % (Auto) 0.4 (0.00-0.4) % Nucleat RBC Rel Count 0.0 (0.00-0.1) % Eos # (Auto) 0.91 H (0-0.5) x10^3/uL Immature Gran # (Auto) 0.03 (0.00-0.03) x10^3u/L Absolute Lymphs (auto) 1.71 (1.0-4.6) x10^3/uL Absolute Monos (auto) 0.78 (0.0-1.3) x10^3/uL Absolute Nucleated RBC 0.00 (0.00-0.01) x10^3u/L Lymphocytes % 20.5 L (24.0-44.0) % Monocytes % 9.3 (0.0-12.0) % Eosinophils % 10.9 H (0.00-5.0) % Basophils % 0.6 (0.0-0.4) % Absolute Granulocytes 4.88 (1.4-6.9) x10^3/uL Basophils # 0.05 (0-0.4) x10^3/uL Sodium 135 L (137-145) mmol/L Potassium 4.3 (3.5-5.1) mmol/L Chloride 100 (98-107) mmol/L Carbon Dioxide 30 (22-30) mmol/L Anion Gap 9.7 (5-15) MEQ/L BUN 10 (9-20) mg/dL Creatinine 0.82 (0.66-1.25) mg/dL Estimated GFR > 60.0 ML/MIN Glucose 107 H (74-106) mg/dL POC Glucometer (74 to 106) mg/dL Calcium 8.8 (8.4-10.2) mg/dL Total Bilirubin 0.40 (0.2-1.3) mg/dL AST 37 (17-59) U/L ALT 37 (0-50) U/L Alkaline Phosphatase 91 (38-126) U/L Serum Total Protein 7.2 (6.3-8.2) g/dL Albumin 4.3 (3.5-5.0) g/dL Influenza Type A Ag NEGATIVE (NEGATIVE) Influenza Type B Ag NEGATIVE (NEGATIVE) RSV (PCR) NEGATIVE (Negative) SARS-CoV-2 (PCR) NEGATIVE (NEGATIVE) 07/30/22 07/30/22 07/31/22 Range/Units 16:05 21:08 05:00 WBC 10.7 H (4.0-10.5) x10^3/uL RBC 4.91 (4.1-5.6) x10^6/uL Hgb 14.1 (12.5-18.0) g/dL Hct 43.2 (42-50) % MCV 88.0 (78-100) fL MCH 28.7 (26-32) pg MCHC 32.6 (32-36) g/dL RDW 14.1 H (11.5-14.0) % Plt Count 424 (150-450) x10^3/uL MPV 9.8 (7.5-11.0) fL Gran % 69.5 H (36.0-66.0) % Immature Gran % (Auto) 0.4 (0.00-0.4) % Nucleat RBC Rel Count 0.0 (0.00-0.1) % Eos # (Auto) 0.04 (0-0.5) x10^3/uL Immature Gran # (Auto) 0.04 H (0.00-0.03) x10^3u/L Absolute Lymphs (auto) 2.51 (1.0-4.6) x10^3/uL Absolute Monos (auto) 0.61 (0.0-1.3) x10^3/uL Absolute Nucleated RBC 0.00 (0.00-0.01) x10^3u/L Lymphocytes % 23.4 L (24.0-44.0) % Monocytes % 5.7 (0.0-12.0) % Eosinophils % 0.4 (0.00-5.0) % Basophils % 0.6 (0.0-0.4) % Absolute Granulocytes 7.45 H (1.4-6.9) x10^3/uL Basophils # 0.06 (0-0.4) x10^3/uL Sodium (137-145) mmol/L Potassium (3.5-5.1) mmol/L Chloride (98-107) mmol/L Carbon Dioxide (22-30) mmol/L Anion Gap (5-15) MEQ/L BUN (9-20) mg/dL Creatinine (0.66-1.25) mg/dL Estimated GFR ML/MIN Glucose (74-106) mg/dL POC Glucometer 321 H 92 (74 to 106) mg/dL Calcium (8.4-10.2) mg/dL Total Bilirubin (0.2-1.3) mg/dL AST (17-59) U/L ALT (0-50) U/L Alkaline Phosphatase (38-126) U/L Serum Total Protein (6.3-8.2) g/dL Albumin (3.5-5.0) g/dL Influenza Type A Ag (NEGATIVE) Influenza Type B Ag (NEGATIVE) RSV (PCR) (Negative) SARS-CoV-2 (PCR) (NEGATIVE) 07/31/22 07/31/22 Range/Units 05:00 07:04 WBC (4.0-10.5) x10^3/uL RBC (4.1-5.6) x10^6/uL Hgb (12.5-18.0) g/dL Hct (42-50) % MCV (78-100) fL MCH (26-32) pg MCHC (32-36) g/dL RDW (11.5-14.0) % Plt Count (150-450) x10^3/uL MPV (7.5-11.0) fL Gran % (36.0-66.0) % Immature Gran % (Auto) (0.00-0.4) % Nucleat RBC Rel Count (0.00-0.1) % Eos # (Auto) (0-0.5) x10^3/uL Immature Gran # (Auto) (0.00-0.03) x10^3u/L Absolute Lymphs (auto) (1.0-4.6) x10^3/uL Absolute Monos (auto) (0.0-1.3) x10^3/uL Absolute Nucleated RBC (0.00-0.01) x10^3u/L Lymphocytes % (24.0-44.0) % Monocytes % (0.0-12.0) % Eosinophils % (0.00-5.0) % Basophils % (0.0-0.4) % Absolute Granulocytes (1.4-6.9) x10^3/uL Basophils # (0-0.4) x10^3/uL Sodium 135 L (137-145) mmol/L Potassium 4.5 (3.5-5.1) mmol/L Chloride 101 (98-107) mmol/L Carbon Dioxide 27 (22-30) mmol/L Anion Gap 10.9 (5-15) MEQ/L BUN 12 (9-20) mg/dL Creatinine 0.88 (0.66-1.25) mg/dL Estimated GFR > 60.0 ML/MIN Glucose 113 H (74-106) mg/dL POC Glucometer 74 (74 to 106) mg/dL Calcium 8.7 (8.4-10.2) mg/dL Total Bilirubin 0.30 (0.2-1.3) mg/dL AST 29 (17-59) U/L ALT 34 (0-50) U/L Alkaline Phosphatase 81 (38-126) U/L Serum Total Protein 6.9 (6.3-8.2) g/dL Albumin 4.1 (3.5-5.0) g/dL Influenza Type A Ag (NEGATIVE) Influenza Type B Ag (NEGATIVE) RSV (PCR) (Negative) SARS-CoV-2 (PCR) (NEGATIVE) Assessment/Plan (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 Onset Date: ~11/01/18 Assessment & Plan: continue IV acyclovir, dilaudid and solu cortef. PT consult for leg pain as requested by patient to see if they have anything to offer for symptom control Code(s): G03.2 - BENIGN RECURRENT MENINGITIS [MOLLARET] (2) Cephalgia Current Visit: No Status: Acute Onset Date: ~11/01/18 Code(s): R51 - HEADACHE * DO NOT USE * (3) Diabetes mellitus Current Visit: No Status: Chronic Qualifiers: Code(s): E11.9 - TYPE 2 DIABETES MELLITUS WITHOUT COMPLICATIONS
[2022-07-31] MEDS ORDERED: NON-FORMULARY ITEM (Aspirin [Aspirin] 81 MG Tablet) PO SCH (10:00)
[2022-07-31] MEDS ORDERED: NON-FORMULARY ITEM (L.Acidoph,Paracasei, B.Lactis [Probiotic] 1 EACH Capsule) PO SCH (10:00)
[2022-07-31] MEDS ORDERED: NON-FORMULARY ITEM (Multivitamin [Multi-Vitamin Daily] 1 EACH Tablet) PO SCH (10:00)
[2022-07-31] MEDS ORDERED: MORPHINE SULFATE 1 MG/ML IJ SCH (10:00)
[2022-07-31] MEDS: THERAGRAN MULTIVITAMIN PO SCH (10:59)
[2022-07-31] MEDS: Sodium Chloride 0.9% 1000 ML 1,000 ML IV SCH ×2 (20:30→21:08)
[2022-07-31] MEDS: HUMALOG SQ PRN (21:37)
[2022-07-31] MEDS: Vasotec 10 MG PO SCH (21:40)
[2022-07-31] MEDS: Zocor 10MG PO SCH (21:41)
[2022-07-31] MEDS: Protonix 40MG Tablet PO SCH (21:41)
[2022-08-01 05:26] LABS: BLOOD UREA NITROGEN 11 mg/dL (9-20); CHLORIDE 103 mmol/L (98-107); Calcium 8.4 mg/dL (8.4-10.2); Carbon Dioxide 30 mmol/L (22-30); Creatinine 1 0.84 mg/dL (0.66-1.25); EST GLOMERULAR FILTRATION RATE > 60.0 ML/MIN; Glucose 176 mg/dL (74-106); Potassium 4.4 mmol/L (3.5-5.1); SODIUM 136 mmol/L (137-145)
[2022-08-01] MEDS: Sterile H2O 10 ml IJ SCH ×3 (05:52→22:30)
[2022-08-01] MEDS: MSIR 15 MG PO SCH ×3 (05:52→17:20)
[2022-08-01] MEDS: solu-CORTEF 100MG IV SCH ×3 (05:52→22:30)
[2022-08-01] MEDS: SODIUM CHLORIDE 0.9% IV SCH ×3 (05:53→22:29)
[2022-08-01] MEDS: ZOVIRAX IV SCH ×3 (05:53→22:29)
[2022-08-01] MEDS: Cymbalta 30 MG Capsule PO SCH ×2 (07:55→22:29)
[2022-08-01] MEDS: Acidophilus TABLET PO SCH (07:55)
[2022-08-01] MEDS: ECOTRIN 81 MG PO SCH (07:55)
[2022-08-01] MEDS: THERAGRAN MULTIVITAMIN PO SCH (07:55)
[2022-08-01] MEDS: MINERAL OIL PO SCH ×3 (07:56→22:29)
[2022-08-01] MEDS: Glucophage 500 MG PO SCH ×2 (07:56→17:20)
--- NOTE | 2022-08-01 08:00 | PCM.NOTE ---
Date and Time: 08/01/22 0759 Subjective Assessment: patient still has severe head and neck pain, he is hoping to get some sleep as this usually helps his symptoms. he hasn't been able to sleep well thus far during his stay Objective Exam General Appearance: no apparent distress, obese Neurologic Exam: alert, oriented x 3 Neck Exam: supple Respiratory Exam: normal breath sounds, lungs clear, No respiratory distress Cardiovascular Exam: regular rate/rhythm, normal heart sounds Gastrointestinal/Abdomen Exam: soft, No tenderness, No mass OBJECTIVE DATA Vital Signs: Vital Signs - 24 hr Temp Pulse Resp BP Pulse Ox 08/01/22 07:01 95 08/01/22 03:56 97.3 F 75 18 117/72 97 08/01/22 01:08 20 96 07/31/22 23:37 97.9 F 78 18 135/77 94 L 07/31/22 21:08 20 95 07/31/22 20:45 93 L 07/31/22 20:00 98.2 F 97 H 20 133/70 96 07/31/22 16:00 97.7 F 88 16 135/67 96 07/31/22 13:33 16 97 07/31/22 12:00 85 16 129/79 97 07/31/22 09:33 17 95 Pain Assessment - Last Documented Pain Intensity 7 Pain Scale Used 0-10 Pain Scale Intake and Output: Intake & Output 07/29/22 07/30/22 07/31/22 08/01/22 11:59 11:59 11:59 11:59 Intake Total 3494 4309 Output Total 3900 6300 - Weight 111.7 kg 110.8 kg Lab Results: Lab Results-Last 24 Hours 07/31/22 07/31/22 07/31/22 Range/Units 11:34 16:11 21:01 Sodium (137-145) mmol/L Potassium (3.5-5.1) mmol/L Chloride (98-107) mmol/L Carbon Dioxide (22-30) mmol/L Anion Gap (5-15) MEQ/L BUN (9-20) mg/dL Creatinine (0.66-1.25) mg/dL Estimated GFR ML/MIN Glucose (74-106) mg/dL POC Glucometer 149 H 239 H 197 H (74 to 106) mg/dL Calcium (8.4-10.2) mg/dL 08/01/22 08/01/22 Range/Units 04:45 07:36 Sodium 136 L (137-145) mmol/L Potassium 4.4 (3.5-5.1) mmol/L Chloride 103 (98-107) mmol/L Carbon Dioxide 30 (22-30) mmol/L Anion Gap 7.0 (5-15) MEQ/L BUN 11 (9-20) mg/dL Creatinine 0.84 (0.66-1.25) mg/dL Estimated GFR > 60.0 ML/MIN Glucose 176 H (74-106) mg/dL POC Glucometer 95 (74 to 106) mg/dL Calcium 8.4 (8.4-10.2) mg/dL Assessment/Plan (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 Onset Date: ~11/01/18 Assessment & Plan: 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 his pain meds are managed by Dr Greer Code(s): G03.2 - BENIGN RECURRENT MENINGITIS [MOLLARET] (2) Cephalgia Current Visit: No Status: Acute Onset Date: ~11/01/18 Code(s): R51 - HEADACHE * DO NOT USE * (3) Diabetes mellitus Current Visit: No Status: Chronic Qualifiers: Code(s): E11.9 - TYPE 2 DIABETES MELLITUS WITHOUT COMPLICATIONS
[2022-08-01] MEDS: HYDROMORPHONE 30 MG/30 ML-NS IV PRN (15:38)
[2022-08-01] MEDS: Protonix 40MG Tablet PO SCH (22:29)
[2022-08-01] MEDS: Zocor 10MG PO SCH (22:29)
[2022-08-01] MEDS: Vasotec 10 MG PO SCH (22:30)
[2022-08-01] MEDS: HUMALOG SQ PRN (22:41)
[2022-08-02] MEDS: MSIR 15 MG PO SCH ×5 (00:30→23:58)
[2022-08-02] MEDS: Sterile H2O 10 ml IJ SCH ×3 (06:12→21:42)
[2022-08-02] MEDS: SODIUM CHLORIDE 0.9% IV SCH ×3 (06:12→21:41)
[2022-08-02] MEDS: solu-CORTEF 100MG IV SCH ×3 (06:12→21:43)
[2022-08-02] MEDS: ZOVIRAX IV SCH ×3 (06:12→21:41)
[2022-08-02] MEDS: HYDROMORPHONE 30 MG/30 ML-NS IV PRN ×2 (06:21→22:00)
[2022-08-02 07:19] LABS: Basophil (Absolute #) 0.07 x10^3/uL (0-0.4); Eosinophil % 0.9 % (0.00-5.0); Hematocrit 41.9 % (42-50); Hemoglobin 13.2 g/dL (12.5-18.0); Lymphocytes % 30.2 % (24.0-44.0); Mean Cell Volume 89.5 fL (78-100); Mean Corpuscular Hemoglobin 28.2 pg (26-32); Mean Corpuscular Hgb Concent. 31.5 g/dL (32-36); Mean Platelet Volume 10.7 fL (7.5-11.0); Monocyte (Absolute #) 0.72 x10^3/uL (0.0-1.3); Monocytes % 6.4 % (0.0-12.0); Neutrophil % 61.4 % (36.0-66.0); Platelet Count 459 x10^3/uL (150-450); Red Blood Count 4.68 x10^6/uL (4.1-5.6); White Blood Count 11.3 x10^3/uL (4.0-10.5)
[2022-08-02 07:29] LABS: ALBUMIN 3.9 g/dL (3.5-5.0); ALKALINE PHOSPHATASE 90 U/L (38-126); BLOOD UREA NITROGEN 13 mg/dL (9-20); CHLORIDE 102 mmol/L (98-107); Calcium 8.4 mg/dL (8.4-10.2); Carbon Dioxide 30 mmol/L (22-30); Creatinine 1 0.88 mg/dL (0.66-1.25); EST GLOMERULAR FILTRATION RATE > 60.0 ML/MIN; Glucose 182 mg/dL (74-106); Potassium 4.4 mmol/L (3.5-5.1); SGOT/AST 23 U/L (17-59); SGPT/ALT 28 U/L (0-50); SODIUM 135 mmol/L (137-145); Total Protein 6.4 g/dL (6.3-8.2)
[2022-08-02] MEDS: Glucophage 500 MG PO SCH ×2 (07:49→17:23)
[2022-08-02] MEDS: THERAGRAN MULTIVITAMIN PO SCH (09:33)
[2022-08-02] MEDS: Cymbalta 30 MG Capsule PO SCH ×2 (09:33→21:41)
[2022-08-02] MEDS: Acidophilus TABLET PO SCH (09:33)
[2022-08-02] MEDS: MINERAL OIL PO SCH ×3 (09:33→21:41)
[2022-08-02] MEDS: ECOTRIN 81 MG PO SCH (09:33)
[2022-08-02] MEDS: Sodium Chloride 0.9% 1000 ML 1,000 ML IV SCH (14:00)
[2022-08-02] MEDS: HUMALOG SQ PRN ×2 (17:23→21:45)
[2022-08-02] MEDS: Vasotec 10 MG PO SCH (21:41)
[2022-08-02] MEDS: Zocor 10MG PO SCH (21:41)
[2022-08-02] MEDS: Protonix 40MG Tablet PO SCH (21:41)
[2022-08-03] MEDS: MSIR 15 MG PO SCH ×3 (06:17→17:21)
[2022-08-03] MEDS: Sterile H2O 10 ml IJ SCH ×2 (06:18→14:25)
[2022-08-03] MEDS: solu-CORTEF 100MG IV SCH ×2 (06:18→14:17)
[2022-08-03] MEDS: SODIUM CHLORIDE 0.9% IV SCH ×2 (06:19→14:21)
[2022-08-03] MEDS: ZOVIRAX IV SCH ×2 (06:19→14:21)
[2022-08-03 06:59] LABS: Hematocrit 40.7 % (42-50); Mean Cell Volume 88.7 fL (78-100); Mean Corpuscular Hemoglobin 28.3 pg (26-32); Mean Corpuscular Hgb Concent. 31.9 g/dL (32-36); Mean Platelet Volume 10.2 fL (7.5-11.0); Platelet Count 426 x10^3/uL (150-450); Red Blood Count 4.59 x10^6/uL (4.1-5.6); Red Cell Distribution Width 13.9 % (11.5-14.0); White Blood Count 12.2 x10^3/uL (4.0-10.5)
[2022-08-03 07:05] LABS: BLOOD UREA NITROGEN 11 mg/dL (9-20); CHLORIDE 102 mmol/L (98-107); Calcium 8.1 mg/dL (8.4-10.2); Carbon Dioxide 30 mmol/L (22-30); Creatinine 1 0.71 mg/dL (0.66-1.25); EST GLOMERULAR FILTRATION RATE > 60.0 ML/MIN; Glucose 178 mg/dL (74-106); Potassium 3.9 mmol/L (3.5-5.1)
[2022-08-03 07:07] LABS: SODIUM 136 mmol/L (137-145)
[2022-08-03] MEDS: HYDROMORPHONE 30 MG/30 ML-NS IV PRN ×2 (08:05→16:20)
[2022-08-03] MEDS: Glucophage 500 MG PO SCH ×2 (08:20→17:21)
[2022-08-03 08:27] LABS: ANION GAP 7.9 MEQ/L (5-15)
[2022-08-03] MEDS: Sodium Chloride 0.9% 1000 ML 1,000 ML IV SCH (09:03)
[2022-08-03] MEDS: THERAGRAN MULTIVITAMIN PO SCH (09:04)
[2022-08-03] MEDS: MINERAL OIL PO SCH ×2 (09:04→14:25)
[2022-08-03] MEDS: ECOTRIN 81 MG PO SCH (09:04)
[2022-08-03] MEDS: Cymbalta 30 MG Capsule PO SCH (09:04)
[2022-08-03] MEDS: Acidophilus TABLET PO SCH (09:04)
[2022-08-03] MEDS ORDERED: BENADRYL 25 MG CAPSULE PO PRN (19:28)
[2022-08-04] MEDS: MSIR 15 MG PO SCH ×2 (00:17→06:22)
[2022-08-04] MEDS: Protonix 40MG Tablet PO SCH (00:17)
[2022-08-04] MEDS: Vasotec 10 MG PO SCH (00:17)
[2022-08-04] MEDS: Cymbalta 30 MG Capsule PO SCH ×2 (00:17→07:39)
[2022-08-04] MEDS: Zocor 10MG PO SCH (00:17)
[2022-08-04] MEDS: solu-CORTEF 100MG IV SCH ×2 (00:18→06:22)
[2022-08-04] MEDS: Sterile H2O 10 ml IJ SCH ×2 (00:18→06:21)
[2022-08-04] MEDS: MINERAL OIL PO SCH ×2 (00:21→07:40)
[2022-08-04] MEDS: SODIUM CHLORIDE 0.9% IV SCH ×2 (00:28→06:22)
[2022-08-04] MEDS: ZOVIRAX IV SCH ×2 (00:28→06:22)
[2022-08-04 05:04] LABS: Hematocrit 43.7 % (42-50); Hemoglobin 13.8 g/dL (12.5-18.0); Mean Cell Volume 90.3 fL (78-100); Mean Corpuscular Hemoglobin 28.5 pg (26-32); Mean Corpuscular Hgb Concent. 31.6 g/dL (32-36); Mean Platelet Volume 9.9 fL (7.5-11.0); Platelet Count 452 x10^3/uL (150-450); Red Blood Count 4.84 x10^6/uL (4.1-5.6); Red Cell Distribution Width 14.3 % (11.5-14.0); White Blood Count 11.7 x10^3/uL (4.0-10.5)
[2022-08-04 05:26] LABS: ANION GAP 8.2 MEQ/L (5-15); BLOOD UREA NITROGEN 12 mg/dL (9-20); CHLORIDE 104 mmol/L (98-107); Calcium 7.8 mg/dL (8.4-10.2); Carbon Dioxide 29 mmol/L (22-30); Creatinine 1 0.71 mg/dL (0.66-1.25); EST GLOMERULAR FILTRATION RATE > 60.0 ML/MIN; Glucose 172 mg/dL (74-106); Potassium 3.6 mmol/L (3.5-5.1); SODIUM 137 mmol/L (137-145)
[2022-08-04] MEDS: Sodium Chloride 0.9% 1000 ML 1,000 ML IV SCH (06:21)
--- NOTE | 2022-08-04 06:33 | PCM.DS ---
Discharge Summary Date of Admission: 07/30/22 16:39 Admitting Physician: ANN ALEXIS Primary Care Provider: ANN ALEXIS Allergies Allergies pregabalin [From Lyrica] Adverse Reaction (Severe, Verified 07/30/22 13:51) Hives SOB hives azithromycin [From Zmax] Adverse Reaction (Mild, Verified 07/30/22 13:51) vomiting Hospital Summary - Hospital Course Hospital Course: patient admitted with recurrence of chronic aseptic meningitis, treated with IV solu cortef, acyclovir and crt/hydration. he is back to baseline, pain is improved and he was able to sleep well last night. - Vitals & Intake/Output Vital Signs: Vital Signs Temperature 96.9 F 08/04/22 04:51 Pulse Rate 64 08/04/22 04:51 Respiratory Rate 18 08/04/22 04:51 Blood Pressure 153/83 08/04/22 04:51 O2 Sat by Pulse Oximetry 95 08/04/22 04:51 Intake & Output: Intake & Output 08/01/22 08/02/22 08/03/22 08/04/22 11:59 11:59 11:59 11:59 Intake Total 4549 4934 4320 3240 Output Total 6300 6650 4425 3700 Balance -1751 -1716 -105 -460 Weight 110.8 kg - Lab Result Diagrams: 08/04/22 04:52 08/04/22 04:52 Lab Results-Last 24 Hrs: Lab Results-Last 24 Hours 08/03/22 08/03/22 08/03/22 Range/Units 06:30 06:30 07:18 WBC 12.2 H (4.0-10.5) x10^3/uL RBC 4.59 (4.1-5.6) x10^6/uL Hgb 13.0 (12.5-18.0) g/dL Hct 40.7 L (42-50) % MCV 88.7 (78-100) fL MCH 28.3 (26-32) pg MCHC 31.9 L (32-36) g/dL RDW 13.9 (11.5-14.0) % Plt Count 426 (150-450) x10^3/uL MPV 10.2 (7.5-11.0) fL Sodium 136 L (137-145) mmol/L Potassium 3.9 (3.5-5.1) mmol/L Chloride 102 (98-107) mmol/L Carbon Dioxide 30 (22-30) mmol/L Anion Gap 7.9 (5-15) MEQ/L BUN 11 (9-20) mg/dL Creatinine 0.71 (0.66-1.25) mg/dL Estimated GFR > 60.0 ML/MIN Glucose 178 H (74-106) mg/dL POC Glucometer 111 H (74 to 106) mg/dL Calcium 8.1 L (8.4-10.2) mg/dL 08/03/22 08/03/22 08/04/22 Range/Units 11:53 15:57 00:19 WBC (4.0-10.5) x10^3/uL RBC (4.1-5.6) x10^6/uL Hgb (12.5-18.0) g/dL Hct (42-50) % MCV (78-100) fL MCH (26-32) pg MCHC (32-36) g/dL RDW (11.5-14.0) % Plt Count (150-450) x10^3/uL MPV (7.5-11.0) fL Sodium (137-145) mmol/L Potassium (3.5-5.1) mmol/L Chloride (98-107) mmol/L Carbon Dioxide (22-30) mmol/L Anion Gap (5-15) MEQ/L BUN (9-20) mg/dL Creatinine (0.66-1.25) mg/dL Estimated GFR ML/MIN Glucose (74-106) mg/dL POC Glucometer 105 183 H 114 H (74 to 106) mg/dL Calcium (8.4-10.2) mg/dL 08/04/22 08/04/22 Range/Units 04:52 04:52 WBC 11.7 H (4.0-10.5) x10^3/uL RBC 4.84 (4.1-5.6) x10^6/uL Hgb 13.8 (12.5-18.0) g/dL Hct 43.7 (42-50) % MCV 90.3 (78-100) fL MCH 28.5 (26-32) pg MCHC 31.6 L (32-36) g/dL RDW 14.3 H (11.5-14.0) % Plt Count 452 H (150-450) x10^3/uL MPV 9.9 (7.5-11.0) fL Sodium 137 (137-145) mmol/L Potassium 3.6 (3.5-5.1) mmol/L Chloride 104 (98-107) mmol/L Carbon Dioxide 29 (22-30) mmol/L Anion Gap 8.2 (5-15) MEQ/L BUN 12 (9-20) mg/dL Creatinine 0.71 (0.66-1.25) mg/dL Estimated GFR > 60.0 ML/MIN Glucose 172 H (74-106) mg/dL POC Glucometer (74 to 106) mg/dL Calcium 7.8 L (8.4-10.2) mg/dL Micro Results-Entire Visit: Microbiology 07/30/22 12:02 Blood Culture Gram Stain - Final Blood Not Reportable Blood Culture - Final NO GROWTH 07/30/22 11:57 Blood Culture - Preliminary Blood NO GROWTH TO DATE Accuchecks Date 08/04/22 Date 08/03/22 Date 08/03/22 Date 08/03/22 Time 00:22 Time 16:12 Time 12:47 Time 07:21 - Procedures and Test Procedures and Tests throughout Hospitalization: Therapy Orders & Screens 07/31/22 08:38 PT Eval & Treat (MD Order) ONCE Reason for Eval:: lower leg neuropathic pain Diagnosis: MOLLARETS MININGITIS Discharge Exam General Appearance: no apparent distress, obese Neurologic Exam: alert, oriented x 3 Respiratory Exam: normal breath sounds, lungs clear, No respiratory distress Cardiovascular Exam: regular rate/rhythm, normal heart sounds Gastrointestinal/Abdomen Exam: soft, No tenderness, No mass Final Diagnosis/Problem List - Final Discharge Diagnosis/Problem (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 continue home meds per pain management Dr Greer Code(s): G03.2 - BENIGN RECURRENT MENINGITIS [MOLLARET] (2) Cephalgia Current Visit: No Status: Acute Onset Date: ~11/01/18 Code(s): R51 - HEADACHE * DO NOT USE * (3) Diabetes mellitus Current Visit: No Status: Chronic Code(s): E11.9 - TYPE 2 DIABETES MELLITUS WITHOUT COMPLICATIONS - Discharge Disposition: Home, Self-Care Condition: Stable Prescriptions: New Acyclovir 1 tab PO TID #21 tablet Prednisone 20 mg [Deltasone 20 mg] 20 mg PO UD #18 tablet Continue Enalapril Maleate 10 mg [Vasotec 10 MG] 20 mg PO HS Multivitamin [Multi-Vitamin Daily] 1 each PO DAILY Aspirin 81 mg PO DAILY Mineral Oil 30 ml PO TID Testosterone Cypionate 1.25 ml IM UD Duloxetine HCl [Cymbalta] 60 mg PO BID Prednisone 10 mg [Deltasone 10 mg] 15 mg PO DAILY Morphine Sulfate/Pf [Morphine 10 mg/10 ml Vial] 15.6 mg IJ DAILY L.acidoph,Paracasei, B.lactis [Probiotic] 2 each PO DAILY Metformin HCl 500 mg [Glucophage 500 MG] 1,000 mg PO BIDWM Atorvastatin Calcium [Lipitor] 10 mg PO HS Morphine Sulfate Ir 15 mg [Msir 15 mg] 15 mg PO Q6H Omeprazole 40 mg PO HS Follow up with: ANN ALEXIS MD [Primary Care Provider] -
[2022-08-04 06:51] VITALS: BP 153/85; PULSE 62; O2SAT 98
[2022-08-04] MEDS: Acidophilus TABLET PO SCH (07:39)
[2022-08-04] MEDS: ECOTRIN 81 MG PO SCH (07:40)
[2022-08-04] MEDS: THERAGRAN MULTIVITAMIN PO SCH (07:40)
[2022-08-04] MEDS: Glucophage 500 MG PO SCH (07:40)
[2022-08-04] MEDS: HYDROMORPHONE 30 MG/30 ML-NS IV PRN (09:01)
== END 2022-08-04 09:07 | disposition home or self-care (01) | DRG 76 ==
LOC: ED 10:58 → MED SURG 13:18 → OBSVTOIN 16:39
PROVIDERS: ADMIT Family Medicine; ATTEND Family Medicine
DX: G03.2 Benign recurrent meningitis [Mollaret] (principal); E11.9 Type 2 diabetes mellitus without complications; Z79.899 Other long term (current) drug therapy; Z20.828 Contact with and (suspected) exposure to other viral communicable diseases
CPT/HCPCS: 0241U; 36415; 80048; 80053; 82947; 85025; 85027; 87040; 93268; 94762; 96360; 96374; 96375; 97014; 99285; J0133; J1170; J1720; J1817; J2405; A9270-GY; G0283-GP

== ENCOUNTER 2022-08-25 18:25 | Inpatient (IN) | payer MEDICARE, BC ==
[2022-08-25] MEDS ORDERED: Zofran 4 MG/2 ML VIAL IV ONE (19:58)
[2022-08-25] MEDS ORDERED: Hydromorphone 1 mg/ml Injection IV ONE (19:58)
--- NOTE | 2022-08-25 19:58 | ERPHSYRPT ---
- History of Present Illness Time Seen by Provider: 08/25/22 19:45 Source: patient Exam Limitations: no limitations Patient Subjective Stated Complaint: pt states he is having a flare up of his mollaretts today. Triage Nursing Assessment: pt alert and oriented, answers questions approp. pt ambulatory with steady gait noted. respirations nonlabored with lungs cta. skin warm and dry. pupils equal and reactive. braces to bilat lower legs. 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 He is a patient of Dr. Alexis. Patient is typically admitted with IV hydration and IV steroids, IV acyclovir and IV Dilaudid pain medicine. Severity: moderate Deficits: no difficulties Baseline/Normal Cognition: alert oriented x 3 Current Cognition: alert oriented x 3 Associated Symptoms: headache, other (And neck pain) Allergies/Adverse Reactions: pregabalin [From Lyrica] Adverse Reaction (Severe, Verified 07/30/22 13:51) Hives SOB hives azithromycin [From Zmax] Adverse Reaction (Mild, Verified 07/30/22 13:51) vomiting Home Medications: Aspirin 81 mg PO DAILY 01/24/14 [History] Enalapril Maleate 10 mg [Vasotec 10 MG] 20 mg PO HS 01/24/14 [History] Mineral Oil 30 ml PO TID 01/24/14 [History] Multivitamin [Multi-Vitamin Daily] 1 each PO DAILY 01/24/14 [History] Testosterone Cypionate 1.25 ml IM UD 10/09/14 [History] Duloxetine HCl [Cymbalta] 60 mg PO BID 04/23/15 [History] Prednisone 10 mg [Deltasone 10 mg] 15 mg PO DAILY 04/23/15 [History] Morphine Sulfate/Pf [Morphine 10 mg/10 ml Vial] 15.6 mg IJ DAILY 07/29/19 [History] L.acidoph,Paracasei, B.lactis [Probiotic] 2 each PO DAILY 10/23/19 [History] Metformin HCl 500 mg [Glucophage 500 MG] 1,000 mg PO BIDWM 04/20/20 [History] Atorvastatin Calcium [Lipitor] 10 mg PO HS 01/06/22 [History] Morphine Sulfate Ir 15 mg [Msir 15 mg] 15 mg PO Q6H 02/07/22 [History] Omeprazole 40 mg PO HS 07/01/22 [History] Hx Tetanus, Diphtheria Vaccination/Date Given: Yes (february 2016) Hx Influenza Vaccination/Date Given: No Hx Pneumococcal Vaccination/Date Given: Yes Immunizations Up to Date: Yes Travel Risk - International Travel Have you traveled outside of the country in past 3 weeks: No - Coronavirus Screening Are you exhibiting any of the following symptoms?: No Close contact with a COVID-19 positive Pt in past 14-21 Days: No - Vaccine Status Have you recieved a Covid-19 vaccination: Yes 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 - Review of Systems Constitutional: No Symptoms Eyes: No Symptoms Ears, Nose, & Throat: No Symptoms Respiratory: No Symptoms Cardiac: No Symptoms Abdominal/Gastrointestinal: No Symptoms Genitourinary Symptoms: No Symptoms Musculoskeletal: No Symptoms Skin: No Symptoms Neurological: Headache Psychological: No Symptoms Endocrine: No Symptoms Hematologic/Lymphatic: No Symptoms Immunological/Allergic: No Symptoms All Other Systems: Reviewed and Negative - Past Medical History Pertinent Past Medical History: Yes Neurological History: Other ENT History: No Pertinent History Cardiac History: Hypertension Respiratory History: No Pertinent History Endocrine Medical History: No Pertinent History Musculoskeletal History: No Pertinent History GI Medical History: Other History: No Pertinent History Psycho-Social History: Depression Male Reproductive Disorders: No Pertinent History Other Medical History: Mollaret's, spleen removed - Past Surgical History Past Surgical History: Yes Neuro Surgical History: No Pertinent History Cardiac: No Pertinent History Respiratory: No Pertinent History Gastrointestinal: Appendectomy, Other Genitourinary: No Pertinent History Musculoskeletal: No Pertinent History Male Surgical History: Vasectomy Other Surgical History: splenectomy, 2 nasal surgeries - Social History Smoking Status: Never smoker Exposure to second hand smoke: No Alcohol Use: None Drug Use: none Patient Lives Alone: No Significant Family History: no pertinent family hx - Nursing Vital Signs Nursing Vital Signs: Initial Vital Signs Temperature 99.1 F 08/25/22 19:35 Pulse Rate 116 H 08/25/22 19:35 Respiratory Rate 18 08/25/22 19:35 Blood Pressure 148/105 08/25/22 19:35 O2 Sat by Pulse Oximetry 94 L 08/25/22 19:35 Pain Scale Pain Intensity [Neck] 8 Pain Intensity 10 - [place] Coma Scale Best Eye Response ([place]): (4) open spontaneously Best Verbal Response ([place]): (5) oriented Best Motor Response ([place]): (6) obeys commands Tracy Total: 15 - Physical Exam General Appearance: no apparent distress, alert, anxiety Eye Exam: bilateral eye: normal inspection, PERRL, EOMI Ears, Nose, Throat Exam: normal ENT inspection, moist mucous membranes Neck Exam: normal inspection, supple, full range of motion, No meningismus Respiratory: normal breath sounds, lungs clear, airway intact, No chest tenderness, No respiratory distress Cardiovascular: tachycardia Gastrointestinal: soft, normal bowel sounds, No tenderness Rectal Exam: not done Back Exam: normal inspection, normal range of motion, No CVA tenderness, No vertebral tenderness Extremity Exam: normal inspection, normal range of motion, pelvis stable Mental Status: alert, oriented x 3, 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 bird raiser Exam: normal hearing, normal speech, PERRL Motor/Sensory: no motor deficit, no sensory deficit Skin Exam: normal color, warm, dry SpO2 Interpretation: borderline oxygenation SpO2: 94 O2 Delivery: Room Air Ordered Tests: Active Orders 24 hr Category Date Time Status IV Insertion STAT Care 08/25/22 19:58 Active CBC W DIFF Stat Lab 08/25/22 20:35 Completed CMP Stat Lab 08/25/22 20:35 Completed Transfer Order Routine Transfer 08/25/22 Ordered Medication Summary Generic Name Dose Route Start Last Admin Trade Name Freq PRN Reason Stop Dose Admin Sodium Chloride 1,000 mls @ 100 mls/hr 08/25/22 20:00 08/25/22 20:35 Sodium Chloride 0.9% 1000 Ml IV 09/24/22 19:59 100 mls/hr .Q10H GLENNA Administration Discontinued Medications Generic Name Dose Route Start Last Admin Trade Name Freq PRN Reason Stop Dose Admin Acyclovir Sodium Confirm 08/25/22 20:28 Acyclovir Sodium 500 Mg/Vial Vial Administered 08/25/22 20:29 Dose 500 mg IV .STK-MED ONE Hydrocortisone Sodium Succinate 100 mg 08/25/22 19:59 08/25/22 20:34 Hydrocortisone Sod Succinate 100 Mg/Vial Vial IV 08/25/22 20:00 100 mg STAT ONE Administration Hydrocortisone Sodium Succinate Confirm 08/25/22 20:28 Hydrocortisone Sod Succinate 100 Mg/Vial Vial Administered 08/25/22 20:29 Dose 100 mg .ROUTE .STK-MED ONE Hydromorphone HCl 1 mg 08/25/22 19:58 08/25/22 20:35 Hydromorphone 1 Mg/1ml Inj 1 Mg/Ml Syringe IV 08/25/22 19:59 1 mg STAT ONE Administration Hydromorphone HCl Confirm 08/25/22 20:28 Hydromorphone 1 Mg/1ml Inj 1 Mg/Ml Syringe Administered 08/25/22 20:29 Dose 1 mg .ROUTE .STK-MED ONE Acyclovir Sodium 500 mg/ 100 mls @ 100 mls/hr 08/25/22 19:59 08/25/22 20:33 Dextrose IV 08/25/22 20:58 100 mls/hr STAT ONE Administration Dextrose Confirm 08/25/22 20:29 D5w 100ml Mini Bag 100 Ml Administered 08/25/22 20:30 Dose 100 mls @ ud IV .STK-MED ONE Ondansetron HCl 4 mg 08/25/22 19:58 08/25/22 20:33 Ondansetron Hcl 4 Mg/2 Ml Vial IV 08/25/22 19:59 4 mg STAT ONE Administration Ondansetron HCl Confirm 08/25/22 20:28 Ondansetron Hcl 4 Mg/2 Ml Vial Administered 08/25/22 20:29 Dose 4 mg .ROUTE .STK-MED ONE Sterile Water Confirm 08/25/22 20:30 Water For Injection,Sterile 10 Ml Vial Administered 08/25/22 20:31 Dose 10 ml IJ .STK-MED ONE Lab/Rad Data: Laboratory Result Diagrams 08/25/22 20:35 08/25/22 20:35 Laboratory Results 08/25/22 08/25/22 Range/Units 20:35 20:35 WBC 10.4 (4.0-10.5) x10^3/uL RBC 5.07 (4.1-5.6) x10^6/uL Hgb 14.3 (12.5-18.0) g/dL Hct 44.4 (42-50) % MCV 87.6 (78-100) fL MCH 28.2 (26-32) pg MCHC 32.2 (32-36) g/dL RDW 14.4 H (11.5-14.0) % Plt Count 384 (150-450) x10^3/uL MPV 10.0 (7.5-11.0) fL Gran % 53.7 (36.0-66.0) % Immature Gran % (Auto) 0.4 (0.00-0.4) % Nucleat RBC Rel Count 0.0 (0.00-0.1) % Eos # (Auto) 0.48 (0-0.5) x10^3/uL Immature Gran # (Auto) 0.04 H (0.00-0.03) x10^3u/L Absolute Lymphs (auto) 2.95 (1.0-4.6) x10^3/uL Absolute Monos (auto) 1.29 (0.0-1.3) x10^3/uL Absolute Nucleated RBC 0.00 (0.00-0.01) x10^3u/L Lymphocytes % 28.3 (24.0-44.0) % Monocytes % 12.4 H (0.0-12.0) % Eosinophils % 4.6 (0.00-5.0) % Basophils % 0.6 (0.0-0.4) % Absolute Granulocytes 5.62 (1.4-6.9) x10^3/uL Basophils # 0.06 (0-0.4) x10^3/uL Sodium 133 L (137-145) mmol/L Potassium 3.7 (3.5-5.1) mmol/L Chloride 99 (98-107) mmol/L Carbon Dioxide 29 (22-30) mmol/L Anion Gap 9.2 (5-15) MEQ/L BUN 11 (9-20) mg/dL Creatinine 0.82 (0.66-1.25) mg/dL Estimated GFR > 60.0 ML/MIN Glucose 91 (74-106) mg/dL Calcium 8.5 (8.4-10.2) mg/dL Total Bilirubin 0.40 (0.2-1.3) mg/dL AST 49 (17-59) U/L ALT 36 (0-50) U/L Alkaline Phosphatase 95 (38-126) U/L Serum Total Protein 7.1 (6.3-8.2) g/dL Albumin 4.2 (3.5-5.0) g/dL - Progress Progress: improved, pain not gone completely Counseled pt/family regarding: lab results, diagnosis, need for follow-up - Departure Departure Disposition: Observation Clinical Impression: Mollaret's syndrome Condition: Stable Critical Care Time: No Referrals: ANN ALEXIS MD [Primary Care Provider] - Follow up/PCP as directed
[2022-08-25] MEDS ORDERED: Zovirax INJ*** 500 MG in D5w 100ML Mini Bag 100 ML 100 ML IV ONE (19:59)
[2022-08-25] MEDS ORDERED: solu-CORTEF 100MG IV ONE (19:59)
[2022-08-25] MEDS ORDERED: Sodium Chloride 0.9% 1000 ML 1,000 ML IV SCH (20:00)
[2022-08-25] MEDS ORDERED: Zovirax INJ IV ONE (20:28)
[2022-08-25] MEDS ORDERED: Hydromorphone 1 mg/ml Injection ONE (20:28)
[2022-08-25] MEDS ORDERED: solu-CORTEF 100MG ONE (20:28)
[2022-08-25] MEDS ORDERED: Zofran 4 MG/2 ML VIAL ONE (20:28)
[2022-08-25] MEDS ORDERED: Sodium Chloride 0.9% 1000 ML 1,000 ML ONE (20:29)
[2022-08-25] MEDS ORDERED: D5w 100ML Mini Bag 100 ML 100 ML IV ONE (20:29)
[2022-08-25] MEDS ORDERED: Sterile H2O 10 ml IJ ONE (20:30)
[2022-08-25 20:40] LABS: Absolute Neutrophil Ct (ANC) 5.62 x10^3/uL (1.4-6.9); Basophil (Absolute #) 0.06 x10^3/uL (0-0.4); Eosinophil % 4.6 % (0.00-5.0); Eosinophil (Absolute #) 0.48 x10^3/uL (0-0.5); Hematocrit 44.4 % (42-50); Hemoglobin 14.3 g/dL (12.5-18.0); Lymphocyte (Absolute #) 2.95 x10^3/uL (1.0-4.6); Lymphocytes % 28.3 % (24.0-44.0); Mean Cell Volume 87.6 fL (78-100); Mean Corpuscular Hemoglobin 28.2 pg (26-32); Mean Corpuscular Hgb Concent. 32.2 g/dL (32-36); Monocyte (Absolute #) 1.29 x10^3/uL (0.0-1.3); Monocytes % 12.4 % (0.0-12.0); Neutrophil % 53.7 % (36.0-66.0); Platelet Count 384 x10^3/uL (150-450); Red Blood Count 5.07 x10^6/uL (4.1-5.6); Red Cell Distribution Width 14.4 % (11.5-14.0); White Blood Count 10.4 x10^3/uL (4.0-10.5)
[2022-08-25 20:55] LABS: ALBUMIN 4.2 g/dL (3.5-5.0); ALKALINE PHOSPHATASE 95 U/L (38-126); ANION GAP 9.2 MEQ/L (5-15); BLOOD UREA NITROGEN 11 mg/dL (9-20); CHLORIDE 99 mmol/L (98-107); Calcium 8.5 mg/dL (8.4-10.2); Carbon Dioxide 29 mmol/L (22-30); Creatinine 1 0.82 mg/dL (0.66-1.25); EST GLOMERULAR FILTRATION RATE > 60.0 ML/MIN; Glucose 91 mg/dL (74-106); Potassium 3.7 mmol/L (3.5-5.1); SGOT/AST 49 U/L (17-59); SGPT/ALT 36 U/L (0-50); SODIUM 133 mmol/L (137-145); Total Protein 7.1 g/dL (6.3-8.2)
[2022-08-25 21:19] LABS: INFLUENZA A NEGATIVE (NEGATIVE); INFLUENZA B NEGATIVE (NEGATIVE); RESPIRATORY SYNCTIAL VIRUS NEGATIVE (Negative); SARS-CoV-2 Xpert Express NEGATIVE (NEGATIVE)
[2022-08-25] MEDS ORDERED: TYLENOL 325 MG PO PRN (22:14)
[2022-08-25] MEDS ORDERED: Hydromorphone 1 mg/ml Injection IV PRN (22:14)
[2022-08-25] MEDS: HYDROMORPHONE 30 MG/30 ML-NS IV PRN (22:34)
[2022-08-25] MEDS ORDERED: Cymbalta 30 MG Capsule ONE (23:53)
[2022-08-25] MEDS ORDERED: Protonix 20MG Tablet PO ONE (23:53)
[2022-08-25] MEDS ORDERED: Zocor 10MG ONE (23:54)
[2022-08-25] MEDS ORDERED: Vasotec 10 MG ONE (23:54)
[2022-08-26] MEDS ORDERED: Zovirax INJ IV ONE (04:32)
[2022-08-26] MEDS ORDERED: Sodium Chloride 0.9% 100 ML ONE (04:33)
[2022-08-26] MEDS ORDERED: Sterile H2O 10 ml IJ ONE (04:33)
[2022-08-26] MEDS: ZOVIRAX IV SCH ×4 (04:46→21:25)
[2022-08-26] MEDS: solu-CORTEF 100MG IV SCH ×4 (04:46→21:25)
[2022-08-26] MEDS: SODIUM CHLORIDE MINI IV SCH ×4 (04:46→21:25)
[2022-08-26] MEDS: Nizoral CREAM TOP SCH ×2 (09:53→21:24)
[2022-08-26] MEDS: MSIR 15 MG PO SCH ×3 (09:54→17:53)
[2022-08-26] MEDS ORDERED: DELTASONE 10 MG PO SCH (10:00)
[2022-08-26] MEDS ORDERED: NON-FORMULARY ITEM (L.Acidoph,Paracasei, B.Lactis [Probiotic] 1 EACH Capsule) PO SCH (10:00)
[2022-08-26] MEDS ORDERED: NON-FORMULARY ITEM (Duloxetine Hcl [Cymbalta] 60 MG Capsule.Dr) PO SCH (10:00)
[2022-08-26] MEDS ORDERED: MINERAL OIL PO SCH (10:00)
[2022-08-26] MEDS ORDERED: NON-FORMULARY ITEM (Aspirin [Aspirin] 81 MG Tablet) PO SCH (10:00)
[2022-08-26] MEDS: ECOTRIN 81 MG PO SCH (10:16)
[2022-08-26] MEDS: Cymbalta 30 MG Capsule PO SCH ×2 (10:16→21:24)
[2022-08-26] MEDS: MINERAL OIL PO SCH ×3 (10:16→21:24)
[2022-08-26] MEDS: HYDROMORPHONE 30 MG/30 ML-NS IV PRN (12:00)
--- NOTE | 2022-08-26 13:04 | PCM.HP ---
History of Present Illness - Chief Complaint Chief Complaint: Molaretts syndrome History of Present Illness: is a 52 year old male pt of Dr. Pardo' with hx Molarett's meningitis who was admitted through ER with an exacerbation. He started feeling poorly 2 days ago, with PARK and few days of temps to 99s. He last saw his neurologist on 08/13/22 and was basically told that the meningitis episodes are going to continue worsening, and some longer periods of increased temps may be part of that. He was admitted with IV antiviral, IV steroid, IV fluids, and IV dilaudid. He is not feeling much better yet this morning, with PARK 7-8/10. Tolerating po. He is having increasing discomfort in his legs; has chronic paresthesias in lower legs for some time, but starting to have some numbness in upper legs bilat as well. He was treated by PT during his last visit and would like to have that again. - Review of Systems Cardiac: Edema (chronic, LE) Neurological: Headache, Sensory Changes Psychological: Depression, No Suicidal Ideations, No Homicidal Ideations All Other Systems: Reviewed and Negative Medications & Allergies Home Medications: Home Medication List Aspirin 81 mg PO DAILY 01/24/14 [History Confirmed 08/25/22] Enalapril Maleate 10 mg [Vasotec 10 MG] 20 mg PO HS 01/24/14 [History Confirmed 08/25/22] Mineral Oil 30 ml PO TID 01/24/14 [History Confirmed 08/25/22] Multivitamin [Multi-Vitamin Daily] 1 each PO DAILY 01/24/14 [History Confirmed 08/25/22] Testosterone Cypionate 1.25 ml IM UD 10/09/14 [History Confirmed 08/25/22] Duloxetine HCl [Cymbalta] 60 mg PO BID 04/23/15 [History Confirmed 08/25/22] Prednisone 10 mg [Deltasone 10 mg] 15 mg PO DAILY 04/23/15 [History Confirmed 08/25/22] Morphine Sulfate/Pf [Morphine 10 mg/10 ml Vial] 15.6 mg IJ DAILY 07/29/19 [History Confirmed 08/25/22] L.acidoph,Paracasei, B.lactis [Probiotic] 2 each PO DAILY 10/23/19 [History Confirmed 08/25/22] Metformin HCl 500 mg [Glucophage 500 MG] 1,000 mg PO BIDWM 04/20/20 [History Confirmed 08/25/22] Atorvastatin Calcium [Lipitor] 10 mg PO HS 01/06/22 [History Confirmed 08/25/22] Morphine Sulfate Ir 15 mg [Msir 15 mg] 15 mg PO Q6H 02/07/22 [History Confirmed 08/25/22] Omeprazole 40 mg PO HS 07/01/22 [History Confirmed 08/25/22] Allergies/Adverse Reactions: Allergies Allergy/AdvReac Type Severity Reaction Status Date / Time pregabalin [From Lyrica] AdvReac Severe Hives Verified 07/30/22 13:51 azithromycin [From Zmax] AdvReac Mild Verified 07/30/22 13:51 - Past Medical History Past Medical History: Yes Neurological History: Other ENT History: No Pertinent History Cardiac History: Hypertension Respiratory History: No Pertinent History Endocrine Medical History: No Pertinent History Musculoskelatal History: No Pertinent History GI Medical History: Other History: No Pertinent History Pyscho-Social History: Depression Male Reproductive Disorders: No Pertinent History Comment: Mollaret's, spleen removed - Past Surgical History Past Surgical History: Yes Neuro Surgical History: No Pertinent History Cardiac History: No Pertinent History Respiratory Surgery: No Pertinent History GI Surgical History: Appendectomy, Other Genitourinary Surgical Hx: No Pertinent History Musculskeletal Surgical Hx: No Pertinent History Male Surgical History: Vasectomy Other Surgical History: splenectomy, 2 nasal surgeries - Social History Smoking Status: Never smoker Exposure to second hand smoke: No Alcohol: None Drug Use: none Significant Family History: no pertinent family hx - Physical Exam Vital Signs: Vital Signs - 24 hr Temp Pulse Resp BP Pulse Ox 08/26/22 12:00 16 95 08/26/22 11:15 98.0 F 94 H 16 143/62 94 L 08/26/22 07:29 97.9 F 97 H 16 129/77 94 L 08/26/22 06:34 95 08/26/22 06:28 94 L 08/26/22 04:00 98.2 F 102 H 16 133/96 97 08/26/22 02:34 95 08/25/22 23:41 98.9 F 108 H 124/81 95 08/25/22 23:09 95 08/25/22 22:51 98.9 F 108 H 124/81 94 L 08/25/22 21:25 94 L 08/25/22 21:00 111 H 18 130/99 93 L 08/25/22 20:28 107 H 18 93 L 08/25/22 19:35 99.1 F 116 H 18 148/105 94 L General Appearance: no apparent distress, obese Neurologic Exam: alert, oriented x 3, cooperative Eye Exam: eyes nml inspection, No scleral icterus Ears, Nose, Throat Exam: moist mucous membranes Neck Exam: normal inspection, non-tender, No lymphadenopathy, No subcutaneous emphysema, No thyromegaly Respiratory Exam: normal breath sounds, lungs clear, No crackles/rales, No rhonchi, No wheezing Cardiovascular Exam: regular rate/rhythm, normal heart sounds, No murmur Gastrointestinal/Abdomen Exam: soft, normal bowel sounds, No tenderness, No distention, No mass, No guarding, No rebound Back Exam: normal inspection, No rash Extremity Exam: normal inspection, swelling (trace pretibial edema bilat) Skin Exam: normal color, warm, dry, No rash Results - Labs Lab/Micro Results: Lab Results-Last 24 Hours 08/25/22 08/25/22 08/25/22 Range/Units 20:35 20:35 20:35 WBC 10.4 (4.0-10.5) x10^3/uL RBC 5.07 (4.1-5.6) x10^6/uL Hgb 14.3 (12.5-18.0) g/dL Hct 44.4 (42-50) % MCV 87.6 (78-100) fL MCH 28.2 (26-32) pg MCHC 32.2 (32-36) g/dL RDW 14.4 H (11.5-14.0) % Plt Count 384 (150-450) x10^3/uL MPV 10.0 (7.5-11.0) fL Gran % 53.7 (36.0-66.0) % Immature Gran % (Auto) 0.4 (0.00-0.4) % Nucleat RBC Rel Count 0.0 (0.00-0.1) % Eos # (Auto) 0.48 (0-0.5) x10^3/uL Immature Gran # (Auto) 0.04 H (0.00-0.03) x10^3u/L Absolute Lymphs (auto) 2.95 (1.0-4.6) x10^3/uL Absolute Monos (auto) 1.29 (0.0-1.3) x10^3/uL Absolute Nucleated RBC 0.00 (0.00-0.01) x10^3u/L Lymphocytes % 28.3 (24.0-44.0) % Monocytes % 12.4 H (0.0-12.0) % Eosinophils % 4.6 (0.00-5.0) % Basophils % 0.6 (0.0-0.4) % Absolute Granulocytes 5.62 (1.4-6.9) x10^3/uL Basophils # 0.06 (0-0.4) x10^3/uL Sodium 133 L (137-145) mmol/L Potassium 3.7 (3.5-5.1) mmol/L Chloride 99 (98-107) mmol/L Carbon Dioxide 29 (22-30) mmol/L Anion Gap 9.2 (5-15) MEQ/L BUN 11 (9-20) mg/dL Creatinine 0.82 (0.66-1.25) mg/dL Estimated GFR > 60.0 ML/MIN Glucose 91 (74-106) mg/dL Calcium 8.5 (8.4-10.2) mg/dL Total Bilirubin 0.40 (0.2-1.3) mg/dL AST 49 (17-59) U/L ALT 36 (0-50) U/L Alkaline Phosphatase 95 (38-126) U/L Serum Total Protein 7.1 (6.3-8.2) g/dL Albumin 4.2 (3.5-5.0) g/dL Influenza Type A Ag NEGATIVE (NEGATIVE) Influenza Type B Ag NEGATIVE (NEGATIVE) RSV (PCR) NEGATIVE (Negative) SARS-CoV-2 (PCR) NEGATIVE (NEGATIVE) Assessment/Plan (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 Labs are benign - no elevated WBC count or left shift. Code(s): G03.2 - BENIGN RECURRENT MENINGITIS [MOLLARET] (2) Paresthesia of both legs Current Visit: No Status: Chronic Assessment & Plan: consulted PT for possible TENs unit Code(s): R20.2 - PARESTHESIA OF SKIN (3) Type 2 diabetes mellitus Current Visit: No Status: Chronic Qualifiers: Diabetes mellitus extermination inspector insulin use: without senior care use Diabetes mellitus complication status: without complication Qualified Code(s): E11.9 - Type 2 diabetes mellitus without complications
[2022-08-26] MEDS: Sodium Chloride 0.9% 1000 ML 1,000 ML IV SCH (14:05)
[2022-08-26] MEDS: Glucophage 500 MG PO SCH (17:52)
[2022-08-26] MEDS: Zocor 10MG PO SCH (21:25)
[2022-08-26] MEDS: Protonix 40MG Tablet PO SCH (21:25)
[2022-08-26] MEDS: Vasotec 10 MG PO SCH (21:25)
[2022-08-26] MEDS ORDERED: Cymbalta 30 MG Capsule PO SCH (22:00)
[2022-08-26] MEDS ORDERED: ENALAPRIL MALEATE 10 MG PO SCH (22:00)
[2022-08-26] MEDS ORDERED: NON-FORMULARY ITEM (Omeprazole [Omeprazole] 20 MG Capsule.Dr) PO SCH (22:00)
[2022-08-26] MEDS ORDERED: NON-FORMULARY ITEM (Atorvastatin Calcium 10 MG Tablet) PO SCH (22:00)
[2022-08-26] MEDS ORDERED: Zocor 10MG PO ONE (23:46)
[2022-08-26] MEDS ORDERED: Cymbalta 30 MG Capsule PO ONE (23:47)
[2022-08-26] MEDS ORDERED: MINERAL OIL PO ONE (23:48)
[2022-08-26] MEDS ORDERED: Vasotec 10 MG PO ONE (23:48)
[2022-08-26] MEDS ORDERED: Protonix 20MG Tablet PO ONE (23:49)
[2022-08-27] MEDS: MSIR 15 MG PO SCH ×5 (00:01→23:51)
[2022-08-27] MEDS: HYDROMORPHONE 30 MG/30 ML-NS IV PRN ×2 (05:08→21:24)
[2022-08-27] MEDS: solu-CORTEF 100MG IV SCH ×3 (06:03→22:45)
[2022-08-27] MEDS: SODIUM CHLORIDE MINI IV SCH ×3 (06:03→21:50)
[2022-08-27] MEDS: ZOVIRAX IV SCH ×3 (06:03→21:50)
--- NOTE | 2022-08-27 09:09 | PCM.NOTE ---
Date and Time: 08/27/22906 Subjective Assessment: no improvement in condition since admission, c/o fatigue, severe head and neck pain as well as pain in his legs. these are typical symptoms of a usual Mollaret's flareup for him Objective Exam General Appearance: no apparent distress Neurologic Exam: alert, oriented x 3 Skin Exam: normal color, warm, dry Neck Exam: supple, limited range of motion Respiratory Exam: normal breath sounds, lungs clear, No respiratory distress Cardiovascular Exam: regular rate/rhythm, normal heart sounds Gastrointestinal/Abdomen Exam: soft, No tenderness, No mass Extremity Exam: normal inspection, normal range of motion OBJECTIVE DATA Vital Signs: Vital Signs - 24 hr Temp Pulse Resp BP Pulse Ox 08/27/22 07:31 97.5 F 79 18 129/75 94 L 08/27/22 07:07 95 08/26/22 23:39 96.8 F 89 18 128/74 95 08/26/22 20:00 98.0 F 119 H 20 129/86 96 08/26/22 19:32 94 L 08/26/22 18:29 18 94 L 08/26/22 16:00 97.9 F 98 H 16 132/51 95 08/26/22 12:00 16 95 08/26/22 11:15 98.0 F 94 H 16 143/62 94 L Pain Assessment - Last Documented Pain Intensity [Neck] 8 Pain Intensity 9 Pain Scale Used 0-10 Pain Scale Intake and Output: Intake & Output 08/24/22 08/25/22 08/26/22 08/27/22 11:59 11:59 11:59 11:59 Intake Total 1680 3231 Output Total 7932 6090 Balance -1295 -2369 Weight 109 kg Assessment/Plan (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
[2022-08-27] MEDS ORDERED: Acidophilus TABLET PO SCH (10:00)
[2022-08-27] MEDS: Cymbalta 30 MG Capsule PO SCH ×2 (10:47→21:39)
[2022-08-27] MEDS: Glucophage 500 MG PO SCH ×2 (10:47→18:12)
[2022-08-27] MEDS: ECOTRIN 81 MG PO SCH (10:47)
[2022-08-27] MEDS: MINERAL OIL PO SCH ×3 (10:47→21:40)
[2022-08-27] MEDS: Acidophilus TABLET PO SCH (10:47)
[2022-08-27] MEDS: Nizoral CREAM TOP SCH ×2 (10:49→21:39)
[2022-08-27] MEDS: Sodium Chloride 0.9% 1000 ML 1,000 ML IV SCH (12:44)
[2022-08-27] MEDS: Zocor 10MG PO SCH (21:39)
[2022-08-27] MEDS: Vasotec 10 MG PO SCH (21:40)
[2022-08-27] MEDS: Protonix 40MG Tablet PO SCH (21:40)
[2022-08-27] MEDS ORDERED: Sterile H2O 10 ml IJ ONE (23:44)
[2022-08-28] MEDS: SODIUM CHLORIDE MINI IV SCH ×3 (05:47→22:27)
[2022-08-28] MEDS: MSIR 15 MG PO SCH ×4 (05:47→23:55)
[2022-08-28] MEDS: ZOVIRAX IV SCH ×3 (05:47→22:27)
[2022-08-28] MEDS: solu-CORTEF 100MG IV SCH ×3 (05:48→22:59)
[2022-08-28] MEDS: Glucophage 500 MG PO SCH ×2 (08:26→17:37)
--- NOTE | 2022-08-28 08:27 | PCM.NOTE ---
Date and Time: 08/28/22823 Subjective Assessment: patient notes some mild improvement in his symptoms but pain is still severe. Objective Exam General Appearance: no apparent distress, obese Neurologic Exam: alert, oriented x 3 Respiratory Exam: normal breath sounds, lungs clear, No respiratory distress Cardiovascular Exam: regular rate/rhythm, normal heart sounds Gastrointestinal/Abdomen Exam: soft, No tenderness, No mass Extremity Exam: normal inspection, normal range of motion OBJECTIVE DATA Vital Signs: Vital Signs - 24 hr Temp Pulse Resp BP Pulse Ox 08/28/22 07:31 97.6 F 82 16 128/80 95 08/28/22 06:35 95 08/28/22 03:48 97.8 F 86 20 140/90 97 08/27/22 23:35 97.3 F 96 H 18 121/58 97 08/27/22 21:24 20 95 08/27/22 20:00 97.7 F 104 H 18 145/74 100 08/27/22 19:42 94 L 08/27/22 18:51 20 08/27/22 16:00 97.4 F 82 16 130/79 99 08/27/22 11:31 97.8 F 80 14 119/70 96 Pain Assessment - Last Documented Pain Intensity [Neck] 8 Pain Intensity 9 Pain Scale Used 0-10 Pain Scale Intake and Output: Intake & Output 08/25/22 08/26/22 08/27/22 08/28/22 11:59 11:59 11:59 11:59 Intake Total 1680 3231 2576 Output Total 2975 5600 2601 [facility] -1295 -2369 -25 Weight 109 kg Multi-Disciplinary Progress Notes: Multi-Disciplinary Progress Notes 08/27/22 09:23 Case Management Note by Veronica Conroy PATIENT STILL ACUTELY ILL. NO ANTICIPATED NEEDS ON D/C. WILL CONTINUE TO FOLLOW FOR ANY NEEDS AT D/C. 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 symptoms are slowly improving. Code(s): G03.2 - BENIGN RECURRENT MENINGITIS [MOLLARET] (2) Cephalgia Current Visit: No Status: Acute Onset Date: ~11/01/18 Code(s): R51 - HEADACHE * DO NOT USE *
[2022-08-28] MEDS: Acidophilus TABLET PO SCH (09:45)
[2022-08-28] MEDS: ECOTRIN 81 MG PO SCH (09:45)
[2022-08-28] MEDS: Cymbalta 30 MG Capsule PO SCH ×2 (09:45→23:00)
[2022-08-28] MEDS: MINERAL OIL PO SCH ×3 (09:46→23:00)
[2022-08-28] MEDS: Nizoral CREAM TOP SCH ×2 (09:46→22:59)
[2022-08-28] MEDS: HYDROMORPHONE 30 MG/30 ML-NS IV PRN (13:09)
[2022-08-28] MEDS: Sodium Chloride 0.9% 1000 ML 1,000 ML IV SCH (13:27)
[2022-08-28] MEDS: Protonix 40MG Tablet PO SCH (22:59)
[2022-08-28] MEDS: Vasotec 10 MG PO SCH (23:00)
[2022-08-28] MEDS: Zocor 10MG PO SCH (23:00)
[2022-08-28] MEDS: Zofran 4 MG/2 ML VIAL IV PRN (23:08)
[2022-08-29 05:28] LABS: Absolute Neutrophil Ct (ANC) 7.16 x10^3/uL (1.4-6.9); Basophil (Absolute #) 0.03 x10^3/uL (0-0.4); Eosinophil % 0.3 % (0.00-5.0); Eosinophil (Absolute #) 0.03 x10^3/uL (0-0.5); Hemoglobin 13.1 g/dL (12.5-18.0); Lymphocyte (Absolute #) 1.91 x10^3/uL (1.0-4.6); Lymphocytes % 19.5 % (24.0-44.0); Mean Cell Volume 88.2 fL (78-100); Mean Corpuscular Hemoglobin 28.2 pg (26-32); Monocyte (Absolute #) 0.59 x10^3/uL (0.0-1.3); Neutrophil % 73.2 % (36.0-66.0); Platelet Count 431 x10^3/uL (150-450); Red Blood Count 4.65 x10^6/uL (4.1-5.6); Red Cell Distribution Width 14.6 % (11.5-14.0); White Blood Count 9.8 x10^3/uL (4.0-10.5)
[2022-08-29] MEDS: MSIR 15 MG PO SCH ×4 (06:03→23:39)
[2022-08-29] MEDS: ZOVIRAX IV SCH ×3 (06:04→22:17)
[2022-08-29] MEDS: SODIUM CHLORIDE MINI IV SCH ×3 (06:04→22:17)
[2022-08-29] MEDS: solu-CORTEF 100MG IV SCH ×3 (06:04→22:16)
[2022-08-29] MEDS: Zofran 4 MG/2 ML VIAL IV PRN ×2 (06:11→11:50)
[2022-08-29 06:41] LABS: ALBUMIN 3.3 g/dL (3.5-5.0); ALKALINE PHOSPHATASE 78 U/L (38-126); ANION GAP 7.1 MEQ/L (5-15); BLOOD UREA NITROGEN 9 mg/dL (9-20); CHLORIDE 103 mmol/L (98-107); Calcium 8.1 mg/dL (8.4-10.2); Carbon Dioxide 32 mmol/L (22-30); Creatinine 1 0.69 mg/dL (0.66-1.25); EST GLOMERULAR FILTRATION RATE > 60.0 ML/MIN; Glucose 162 mg/dL (74-106); SGOT/AST 23 U/L (17-59); SGPT/ALT 25 U/L (0-50); SODIUM 139 mmol/L (137-145); Total Protein 5.9 g/dL (6.3-8.2)
--- NOTE | 2022-08-29 07:53 | PCM.NOTE ---
Date and Time: 08/29/22 0752 Subjective Assessment: patient had a bad night, pain is improved slightly but he is nauseated and couldn't eat dinner last night. states when his pain is this severe in times past he has become nauseated, zofran is helping. no abd pain Objective Exam General Appearance: no apparent distress, obese Neurologic Exam: alert, oriented x 3, cooperative Respiratory Exam: normal breath sounds, lungs clear, No respiratory distress Cardiovascular Exam: regular rate/rhythm, normal heart sounds Gastrointestinal/Abdomen Exam: soft, No tenderness, No mass Extremity Exam: normal inspection, normal range of motion OBJECTIVE DATA Vital Signs: Vital Signs - 24 hr Temp Pulse Resp BP Pulse Ox 08/29/22 07:42 97.7 F 74 18 129/79 98 08/29/22 04:20 97.7 F 78 18 123/65 97 08/28/22 23:40 97.7 F 66 16 117/64 96 08/28/22 20:00 97.9 F 84 18 130/68 96 08/28/22 19:45 95 08/28/22 16:00 96.6 F 86 16 121/58 97 08/28/22 11:29 97.5 F 88 17 124/60 98 Pain Assessment - Last Documented Pain Intensity [Neck] 8 Pain Intensity 8 Pain Scale Used 0-10 Pain Scale Intake and Output: Intake & Output 08/26/22 08/27/22 08/28/22 08/29/22 11:59 11:59 11:59 11:59 Intake Total 1680 3231 2936 2948 Output Total 2975 5600 2951 4650 Balance -1295 -2369 -15 -1702 Weight 109 kg 109 kg Lab Results: Lab Results-Last 24 Hours 08/29/22 08/29/22 Range/Units 04:50 04:50 WBC 9.8 (4.0-10.5) x10^3/uL RBC 4.65 (4.1-5.6) x10^6/uL Hgb 13.1 (12.5-18.0) g/dL Hct 41.0 L (42-50) % MCV 88.2 (78-100) fL MCH 28.2 (26-32) pg MCHC 32.0 (32-36) g/dL RDW 14.6 H (11.5-14.0) % Plt Count 431 (150-450) x10^3/uL MPV 10.0 (7.5-11.0) fL Gran % 73.2 H (36.0-66.0) % Immature Gran % (Auto) 0.7 H (0.00-0.4) % Nucleat RBC Rel Count 0.0 (0.00-0.1) % Eos # (Auto) 0.03 (0-0.5) x10^3/uL Immature Gran # (Auto) 0.07 H (0.00-0.03) x10^3u/L Absolute Lymphs (auto) 1.91 (1.0-4.6) x10^3/uL Absolute Monos (auto) 0.59 (0.0-1.3) x10^3/uL Absolute Nucleated RBC 0.00 (0.00-0.01) x10^3u/L Lymphocytes % 19.5 L (24.0-44.0) % Monocytes % 6.0 (0.0-12.0) % Eosinophils % 0.3 (0.00-5.0) % Basophils % 0.3 (0.0-0.4) % Absolute Granulocytes 7.16 H (1.4-6.9) x10^3/uL Basophils # 0.03 (0-0.4) x10^3/uL Sodium 139 (137-145) mmol/L Potassium 4.0 (3.5-5.1) mmol/L Chloride 103 (98-107) mmol/L Carbon Dioxide 32 H (22-30) mmol/L Anion Gap 7.1 (5-15) MEQ/L BUN 9 (9-20) mg/dL Creatinine 0.69 (0.66-1.25) mg/dL Estimated GFR > 60.0 ML/MIN Glucose 162 H (74-106) mg/dL Calcium 8.1 L (8.4-10.2) mg/dL Total Bilirubin 0.30 (0.2-1.3) mg/dL AST 23 (17-59) U/L ALT 25 (0-50) U/L Alkaline Phosphatase 78 (38-126) U/L Serum Total Protein 5.9 L (6.3-8.2) g/dL Albumin 3.3 L (3.5-5.0) g/dL Multi-Disciplinary Progress Notes: Multi-Disciplinary Progress Notes 08/28/22 12:07 Case Management Note by Kasie Garcia S/W PATIENT HE CONTINUES TO DENY ANY NEW NEEDS. HE PLANS TO RETURN HOME TO HIS PLF AT TIME OF DC Initialized on 08/28/22 12:07 - END OF NOTE 08/28/22 12:02 Physical Therapy Note by Keyshawn (L [id number]),Regina PT completed tx this date with patient report of IFC e-stim assisting with slight reduction in BLE pain. Patient tolerated tx well with skin intact post tx. Pain 8/10 pre tx and 8/10 post tx. However, patient reports pain in BLE has improved slightly but he continues to report chronic neck pain. 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 zofran prn for nausea. will follow Code(s): G03.2 - BENIGN RECURRENT MENINGITIS [MOLLARET] (2) Cephalgia Current Visit: No Status: Acute Onset Date: ~11/01/18 Code(s): R51 - HEADACHE * DO NOT USE *
[2022-08-29] MEDS: Cymbalta 30 MG Capsule PO SCH ×2 (08:48→22:16)
[2022-08-29] MEDS: Glucophage 500 MG PO SCH ×2 (08:48→17:35)
[2022-08-29] MEDS: Acidophilus TABLET PO SCH (08:48)
[2022-08-29] MEDS: Nizoral CREAM TOP SCH ×2 (08:49→23:43)
[2022-08-29] MEDS: ECOTRIN 81 MG PO SCH (08:49)
[2022-08-29] MEDS: MINERAL OIL PO SCH ×3 (08:49→22:17)
[2022-08-29] MEDS: HYDROMORPHONE 30 MG/30 ML-NS IV PRN (09:26)
[2022-08-29] MEDS: Sodium Chloride 0.9% 1000 ML 1,000 ML IV SCH (13:12)
[2022-08-29] MEDS ORDERED: Sterile H2O 10 ml IJ ONE (14:06)
[2022-08-29] MEDS ORDERED: Hydromorphone 1 mg/ml Injection IV PRN (15:31)
[2022-08-29] MEDS: Vasotec 10 MG PO SCH (22:15)
[2022-08-29] MEDS: Zocor 10MG PO SCH (22:15)
[2022-08-29] MEDS: Protonix 40MG Tablet PO SCH (22:16)
[2022-08-30] MEDS ORDERED: DILAUDID 1 MG/1ML PCA SYRINGE ONE (01:04)
[2022-08-30] MEDS: HYDROMORPHONE 30 MG/30 ML-NS IV PRN (01:13)
[2022-08-30] MEDS: ZOVIRAX IV SCH ×3 (06:05→21:47)
[2022-08-30] MEDS: SODIUM CHLORIDE MINI IV SCH ×3 (06:05→21:47)
[2022-08-30] MEDS: solu-CORTEF 100MG IV SCH ×3 (06:06→21:45)
[2022-08-30] MEDS: MSIR 15 MG PO SCH ×4 (06:06→23:41)
[2022-08-30] MEDS: Glucophage 500 MG PO SCH ×2 (08:26→18:01)
[2022-08-30] MEDS: ECOTRIN 81 MG PO SCH (09:35)
[2022-08-30] MEDS: Acidophilus TABLET PO SCH (09:35)
[2022-08-30] MEDS: Cymbalta 30 MG Capsule PO SCH ×2 (09:35→21:46)
[2022-08-30] MEDS: MINERAL OIL PO SCH ×3 (09:36→21:45)
[2022-08-30] MEDS: Nizoral CREAM TOP SCH ×2 (09:36→10:23)
--- NOTE | 2022-08-30 10:55 | PCM.NOTE ---
Date and Time: 08/30/22 1054 Subjective Assessment: c/o headache - Review of Systems Constitutional: No Fever, No Chills Eyes: No Symptoms Ears, Nose, & Throat: No Symptoms Respiratory: No Cough, No Short Of Breath Cardiac: No Chest Pain, No Edema, No Syncope Abdominal/Gastrointestinal: No Abdominal Pain, No Nausea, No Vomiting, No Diarrhea Genitourinary Symptoms: No Dysuria Musculoskeletal: No Back Pain, No Neck Pain Skin: No Rash Neurological: Headache, No Dizziness, No Focal Weakness, No Sensory Changes Psychological: No Symptoms Endocrine: No Symptoms Hematologic/Lymphatic: No Symptoms Immunological/Allergic: No Symptoms Objective Exam General Appearance: no apparent distress, alert Neurologic Exam: alert, oriented x 3, cooperative, normal mood/affect, nml cerebellar function, sensation nml, No motor deficits Skin Exam: normal color, warm, dry Eye Exam: PERRL, EOMI, eyes nml inspection Ears, Nose, Throat Exam: normal ENT inspection, pharynx normal, moist mucous membranes Neck Exam: normal inspection, non-tender, supple, full range of motion Respiratory Exam: normal breath sounds, lungs clear, No respiratory distress Cardiovascular Exam: regular rate/rhythm, normal heart sounds Gastrointestinal/Abdomen Exam: soft, No tenderness, No mass Extremity Exam: normal inspection, normal range of motion Back Exam: normal inspection, normal range of motion, No CVA tenderness, No vertebral tenderness Male Genitalia Exam: deferred Rectal Exam: deferred OBJECTIVE DATA Vital Signs: Vital Signs - 24 hr Temp Pulse Resp BP Pulse Ox 08/30/22 08:00 98.6 F 88 17 131/75 95 08/30/22 05:13 16 96 08/30/22 04:00 97.1 F 85 20 123/68 95 08/30/22 01:13 20 96 08/30/22 00:00 97.9 F 85 20 151/75 96 08/29/22 20:49 97.8 F 82 20 137/77 96 08/29/22 20:00 97.7 F 89 18 111/57 98 08/29/22 19:52 96 08/29/22 16:00 97.7 F 89 18 111/57 98 08/29/22 12:00 97.8 F 72 18 127/65 95 Pain Assessment - Last Documented Pain Intensity [Neck] 8 Pain Intensity 7 Pain Scale Used 0-10 Pain Scale Intake and Output: Intake & Output 08/27/22 08/28/22 08/29/22 08/30/22 11:59 11:59 11:59 11:59 Intake Total 3231 2936 3248 3517 Output Total 3880 3448 [id number] [facility] -[phone] [phone] Weight 109 kg Multi-Disciplinary Progress Notes: Multi-Disciplinary Progress Notes 08/29/22 13:54 Physical Therapy Note by Stevenson([id number])Tran PT. IS FEELING NAUSEOUS TODAY AND DID NOT WANT TO HAVE IFES RX. WILL CONT. PT FOR PN MG'T APPROPRIATE UNTIL D/C. Initialized on 08/29/22 13:54 - END OF NOTE 08/29/22 10:58 Case Management Note by Kasie Garcia S/W PATIENT- HE CONTINUES TO DENY ANY NEW NEEDS AT TIME OF DC. 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 Onset Date: ~11/01/18 Assessment & Plan: Chief Complaint Diagnosis Molaretts syndrome Allergies Allergy/AdvReac Type Severity Reaction Status Date / Time pregabalin [From Lyrica] AdvReac Severe Hives Verified 07/30/22 13:51 azithromycin [From Zmax] AdvReac Mild Verified 07/30/22 13:51 Vital Signs (Last 24 hours) Temp Pulse Resp BP Pulse Ox 08/30/22 08:00 98.6 F 88 17 131/75 95 08/30/22 05:13 16 96 08/30/22 04:00 97.1 F 85 20 123/68 95 08/30/22 01:13 20 96 08/30/22 00:00 97.9 F 85 20 151/75 96 08/29/22 20:49 97.8 F 82 20 137/77 96 08/29/22 20:00 97.7 F 89 18 111/57 98 08/29/22 19:52 96 08/29/22 16:00 97.7 F 89 18 111/57 98 08/29/22 12:00 97.8 F 72 18 127/65 95 Current Medications Generic Name Dose Route Start Last Admin Trade Name Freq PRN Reason Stop Dose Admin Acetaminophen 650 mg 08/25/22 22:14 Acetaminophen 325 Mg Tablet PO 09/24/22 22:13 Q4H PRN PRN PAIN, FEVER, HEADACHE Aspirin 81 mg 08/26/22 10:00 08/30/22 09:35 Aspirin 81 Mg Tablet.Ec PO 09/25/22 09:59 81 mg DAILY GLENNA Administration Duloxetine HCl 60 mg 08/26/22 10:00 08/30/22 09:35 Duloxetine Hcl 30 Mg Cap PO 09/25/22 09:59 60 mg BID GLENNA Administration Enalapril Maleate 20 mg 08/26/22 22:00 08/29/22 22:15 Enalapril Maleate 10 Mg 10 Mg Tablet PO 09/25/22 21:59 20 mg HS GLENNA Administration Hydrocortisone Sodium Succinate 100 mg 08/26/22 14:00 08/30/22 06:06 Hydrocortisone Sod Succinate 100 Mg/Vial Vial IV 09/25/22 13:59 100 mg Q8HT GLENNA Administration Hydromorphone HCl 0 mg 08/30/22 07:43 Hydromorphone Hcl 30 Mg/30 Ml Syringe IV 09/04/22 07:42 UD PRN Sodium Chloride 1,000 mls @ 50 mls/hr 08/25/22 22:14 08/29/22 13:12 Sodium Chloride 0.9% 1000 Ml IV 09/24/22 22:13 50 mls/hr .Q20H GLENNA Administration Acyclovir Sodium 500 mg/ 100 mls @ 100 mls/hr 08/26/22 14:00 08/30/22 06:05 Sodium Chloride IV 09/25/22 13:59 100 mls/hr Q8HT GLENNA Administration Ketoconazole 1 gm 08/26/22 10:00 08/30/22 10:23 Ketoconazole 15 Gm Tube Cream TOP 09/25/22 09:59 1 gm BID GLENNA Administration Lactobacillus Acidophilus 2 tab 08/26/22 10:21 08/30/22 09:35 Lactobacillus Acidophilus 1 Tab Tablet PO 09/25/22 09:59 2 tab DAILY GLENNA Administration Metformin HCl 1,000 mg 08/26/22 17:00 08/30/22 08:26 Metformin Hcl 500 Mg Tablet PO 09/25/22 16:59 1,000 mg BIDWM GLENNA Administration Mineral Oil 30 ml 08/26/22 10:00 08/30/22 09:36 Mineral Oil 1 Ml Ml PO 09/25/22 09:59 30 ml TID GLENNA Administration Morphine Sulfate 15 mg 08/26/22 09:00 08/30/22 06:06 Morphine Sulfate 15 Mg Tablet Immediate Release PO 09/04/22 12:00 15 mg Q6HT GLENNA Administration Ondansetron HCl 4 mg 08/28/22 21:32 08/29/22 11:50 Ondansetron Hcl 4 Mg/2 Ml Vial IV 09/27/22 21:31 4 mg Q4H PRN PRN Administration NAUSEA/VOMITING Pantoprazole Sodium 40 mg 08/26/22 22:00 08/29/22 22:16 Protonix (Pantoprazole) 40 Mg Tablet PO 09/25/22 21:59 40 mg HS GLENNA Administration Simvastatin 10 mg 08/26/22 22:00 08/29/22 22:15 Simvastatin 10 Mg Tablet PO 09/25/22 21:59 10 mg HS GLENNA Administration Sterile Water 2 ml 08/29/22 22:00 Water For Injection,Sterile 10 Ml Vial IJ 09/28/22 21:59 Q8HT GLENNA Discontinued Medications Generic Name Dose Route Start Last Admin Trade Name Freq PRN Reason Stop Dose Admin Acyclovir Sodium Confirm 08/25/22 20:28 Acyclovir Sodium 500 Mg/Vial Vial Administered 08/25/22 20:29 Dose 500 mg IV .STK-MED ONE Acyclovir Sodium Confirm 08/26/22 04:32 Acyclovir Sodium 500 Mg/Vial Vial Administered 08/26/22 04:33 Dose 500 mg IV .STK-MED ONE Duloxetine HCl 60 mg 08/26/22 23:47 08/26/22 00:22 Duloxetine Hcl 30 Mg Cap PO 08/26/22 23:48 60 mg BID ONE Administration Duloxetine HCl Confirm 08/25/22 23:53 Duloxetine Hcl 30 Mg Cap Administered 08/25/22 23:54 Dose 60 mg .ROUTE .STK-MED ONE Enalapril Maleate 20 mg 08/26/22 23:48 08/26/22 00:23 Enalapril Maleate 10 Mg 10 Mg Tablet PO 08/26/22 23:49 20 mg HS ONE Administration Enalapril Maleate Confirm 08/25/22 23:54 Enalapril Maleate 10 Mg 10 Mg Tablet Administered 08/25/22 23:55 Dose 20 mg .ROUTE .STK-MED ONE Hydrocortisone Sodium Succinate 100 mg 08/25/22 19:59 08/25/22 20:34 Hydrocortisone Sod Succinate 100 Mg/Vial Vial IV 08/25/22 20:00 100 mg STAT ONE Administration Hydrocortisone Sodium Succinate Confirm 08/25/22 20:28 Hydrocortisone Sod Succinate 100 Mg/Vial Vial Administered 08/25/22 20:29 Dose 100 mg .ROUTE .STK-MED ONE Hydrocortisone Sodium Succinate 100 mg 08/25/22 22:14 08/26/22 10:23 Hydrocortisone Sod Succinate 100 Mg/Vial Vial IV 09/24/22 22:13 Not Given Q8H GLENNA Hydromorphone HCl 1 mg 08/25/22 19:58 08/25/22 20:35 Hydromorphone 1 Mg/1ml Inj 1 Mg/Ml Syringe IV 08/25/22 19:59 1 mg STAT ONE Administration Hydromorphone HCl Confirm 08/25/22 20:28 Hydromorphone 1 Mg/1ml Inj 1 Mg/Ml Syringe Administered 08/25/22 20:29 Dose 1 mg .ROUTE .STK-MED ONE Hydromorphone HCl 1 mg 08/25/22 22:14 Hydromorphone 1 Mg/1ml Inj 1 Mg/Ml Syringe IV 08/30/22 22:13 Q4H PRN PRN PAIN Hydromorphone HCl 0 mg 08/29/22 15:31 Hydromorphone 1 Mg/1ml Inj 1 Mg/Ml Syringe IV 09/03/22 15:30 UD PRN Hydromorphone HCl Confirm 08/30/22 01:04 Hydromorphone Hcl 30 Mg/30 Ml Syringe Administered 08/30/22 01:05 Dose 30 mg .ROUTE .STK-MED ONE Hydromorphone/Sodium Chloride 30 mg 08/25/22 22:25 08/30/22 01:13 Hydromorphone Hcl/0.9% Nacl/Pf 30 Mg/30 Ml Dry House Operator.Syring IV 09/24/22 22:24 30 mg .STANDARD STAFF RESEARCH ASSOCIATE DOSING PRN Administration PAIN Sodium Chloride 1,000 mls @ 100 mls/hr 08/25/22 20:00 08/25/22 20:35 Sodium Chloride 0.9% 1000 Ml IV 09/24/22 19:59 100 mls/hr .Q10H GLENNA Administration Acyclovir Sodium 500 mg/ 100 mls @ 100 mls/hr 08/25/22 19:59 08/25/22 20:33 Dextrose IV 08/25/22 20:58 100 mls/hr STAT ONE Administration Dextrose Confirm 08/25/22 20:29 D5w 100ml Mini Bag 100 Ml Administered 08/25/22 20:30 Dose 100 mls @ ud IV .STK-MED ONE Sodium Chloride Confirm 08/25/22 20:29 Sodium Chloride 0.9% 1000 Ml Administered 08/25/22 20:30 Dose 1,000 mls @ ud .ROUTE .STK-MED ONE Acyclovir Sodium 500 mg/ 100 mls @ 100 mls/hr 08/25/22 22:14 08/26/22 09:57 Sodium Chloride IV 09/24/22 22:13 Not Given Q8H GLENNA Sodium Chloride Confirm 08/26/22 04:33 Sodium Chloride 0.9% Administered 08/26/22 04:34 Dose 100 mls @ ud .ROUTE .STK-MED ONE Lactobacillus Acidophilus 2 tab 08/27/22 10:00 Lactobacillus Acidophilus 1 Tab Tablet PO 09/26/22 09:59 DAILY GLENNA Mineral Oil 30 ml 08/26/22 23:48 08/26/22 00:23 Mineral Oil 1 Ml Ml PO 08/26/22 23:49 30 ml TID ONE Administration Ondansetron HCl 4 mg 08/25/22 19:58 08/25/22 20:33 Ondansetron Hcl 4 Mg/2 Ml Vial IV 08/25/22 19:59 4 mg STAT ONE Administration Ondansetron HCl Confirm 08/25/22 20:28 Ondansetron Hcl 4 Mg/2 Ml Vial Administered 08/25/22 20:29 Dose 4 mg .ROUTE .STK-MED ONE Pantoprazole Sodium 20 mg 08/26/22 23:49 08/26/22 00:23 Pantoprazole 20 Mg Tab PO 08/26/22 23:50 20 mg HS ONE Administration Pantoprazole Sodium Confirm 08/25/22 23:53 Pantoprazole 20 Mg Tab Administered 08/25/22 23:54 Dose 20 mg PO .STK-MED ONE Simvastatin 10 mg 08/26/22 23:46 08/26/22 00:22 Simvastatin 10 Mg Tablet PO 08/26/22 23:47 10 mg HS ONE Administration Simvastatin Confirm 08/25/22 23:54 Simvastatin 10 Mg Tablet Administered 08/25/22 23:55 Dose 10 mg .ROUTE .STK-MED ONE Sterile Water Confirm 08/25/22 20:30 Water For Injection,Sterile 10 Ml Vial Administered 08/25/22 20:31 Dose 10 ml IJ .STK-MED ONE Sterile Water Confirm 08/26/22 04:33 Water For Injection,Sterile 10 Ml Vial Administered 08/26/22 04:34 Dose 10 ml IJ .STK-MED ONE Sterile Water Confirm 08/27/22 23:44 Water For Injection,Sterile 10 Ml Vial Administered 08/27/22 23:45 Dose 10 ml IJ .STK-MED ONE Sterile Water Confirm 08/29/22 14:06 Water For Injection,Sterile 10 Ml Vial Administered 08/29/22 14:07 Dose 10 ml IJ .STK-MED ONE Intake & Output (Last 24 hours) 08/27/22 08/28/22 08/29/22 08/30/22 11:59 11:59 11:59 11:59 Intake Total 3231 2936 3248 3517 Output Total 5600 2951 4650 4350 [facility] -2369 -[phone] Weight 109 kg Orders (Last 24 hours) Category Date Time Status Hydromorphone 1 mg/1Ml Inj [Hydromorphone 1 mg/ml Med 08/29/22 15:31 Discontinued Injection] See Dose Instructions IV UD PRN Hydromorphone HCl 30 mg/30 ml* [Dilaudid 1 mg/1Ml STAFF RESEARCH ASSOCIATE Med 08/30/22 01:04 Discontinued Syringe] 30 mg .ROUTE .STK-MED ONE Hydromorphone HCl 30 mg/30 ml* [Dilaudid 1 mg/1Ml STAFF RESEARCH ASSOCIATE Med 08/30/22 07:43 Active Syringe] See Dose Instructions IV UD PRN Water For Injection,Sterile [Sterile H2O 10 ml] Med 08/29/22 14:06 Discontinued 10 ml IJ .STK-MED ONE Water For Injection,Sterile [Sterile H2O 10 ml] Med 08/29/22 22:00 Active 2 ml IJ Q8HT Patient Care Notes (Last 24 hours) 08/29/22 13:54 Physical Therapy Note by Stevenson([id number])Tran PT. IS FEELING NAUSEOUS TODAY AND DID NOT WANT TO HAVE IFES RX. WILL CONT. PT FOR PN MG'T APPROPRIATE UNTIL D/C. Initialized on 08/29/22 13:54 - END OF NOTE 08/29/22 10:58 Case Management Note by Kasie Garcia S/W PATIENT- HE CONTINUES TO DENY ANY NEW NEEDS AT TIME OF DC. HE PLANS TO RETURN HOME TO HIS PLF AT TIME OF DC Initialized on 08/29/22 10:58 - END OF NOTE Code(s): G03.2 - BENIGN RECURRENT MENINGITIS [MOLLARET]
[2022-08-30] MEDS: Sodium Chloride 0.9% 1000 ML 1,000 ML IV SCH ×2 (12:02)
[2022-08-30] MEDS: Sterile H2O 10 ml IJ SCH ×2 (14:34→21:46)
[2022-08-30] MEDS: DILAUDID 1 MG/1ML PCA SYRINGE IV PRN (15:25)
[2022-08-30] MEDS: Protonix 40MG Tablet PO SCH (21:45)
[2022-08-30] MEDS: Vasotec 10 MG PO SCH (21:45)
[2022-08-30] MEDS: Zocor 10MG PO SCH (21:46)
[2022-08-31] MEDS: MSIR 15 MG PO SCH ×2 (06:05→11:30)
[2022-08-31] MEDS: solu-CORTEF 100MG IV SCH (06:09)
[2022-08-31] MEDS: ZOVIRAX IV SCH (06:10)
[2022-08-31] MEDS: SODIUM CHLORIDE MINI IV SCH (06:10)
[2022-08-31] MEDS: DILAUDID 1 MG/1ML PCA SYRINGE IV PRN (07:05)
[2022-08-31 08:08] VITALS: BP 130/75; PULSE 73; O2SAT 96
[2022-08-31] MEDS: Acidophilus TABLET PO SCH (08:29)
[2022-08-31] MEDS: Glucophage 500 MG PO SCH (08:29)
[2022-08-31] MEDS: ECOTRIN 81 MG PO SCH (08:29)
[2022-08-31] MEDS: Cymbalta 30 MG Capsule PO SCH (08:30)
[2022-08-31] MEDS: Nizoral CREAM TOP SCH (08:30)
[2022-08-31] MEDS: MINERAL OIL PO SCH (08:30)
--- NOTE | 2022-08-31 13:09 | PCM.DS ---
Discharge Summary Date of Admission: 08/26/22 08:43 Admitting Physician: LEONCIO GARZON DO Primary Care Provider: ANN ALEXIS Allergies Allergies pregabalin [From Lyrica] Adverse Reaction (Severe, Verified 07/30/22 13:51) Hives SOB hives azithromycin [From Zmax] Adverse Reaction (Mild, Verified 07/30/22 13:51) vomiting Hospital Summary - Hospital Course Hospital Course: Chief Complaint Diagnosis Molaretts syndrome Allergies Allergy/AdvReac Type Severity Reaction Status Date / Time pregabalin [From Lyrica] AdvReac Severe Hives Verified 07/30/22 13:51 azithromycin [From Zmax] AdvReac Mild Verified 07/30/22 13:51 Vital Signs (Last 24 hours) Temp Pulse Resp BP Pulse Ox 08/31/22 11:05 18 96 08/31/22 08:00 97.5 F 73 16 130/75 96 08/31/22 07:57 95 08/31/22 07:05 16 96 08/31/22 04:00 97.5 F 65 18 132/79 96 08/31/22 03:25 16 96 08/30/22 23:53 97.2 F 74 20 130/77 95 08/30/22 23:25 16 96 08/30/22 20:08 96 08/30/22 20:00 97.5 F 88 16 113/82 96 08/30/22 19:21 16 98 08/30/22 16:00 97.3 F 79 18 139/76 08/30/22 15:25 14 98 Current Medications Generic Name Dose Route Start Last Admin Trade Name Freq PRN Reason Stop Dose Admin Acetaminophen 650 mg 08/25/22 22:14 Acetaminophen 325 Mg Tablet PO 09/24/22 22:13 Q4H PRN PRN PAIN, FEVER, HEADACHE Aspirin 81 mg 08/26/22 10:00 08/31/22 08:29 Aspirin 81 Mg Tablet.Ec PO 09/25/22 09:59 81 mg DAILY GLENNA Administration Duloxetine HCl 60 mg 08/26/22 10:00 08/31/22 08:30 Duloxetine Hcl 30 Mg Cap PO 09/25/22 09:59 60 mg BID GLENNA Administration Enalapril Maleate 20 mg 08/26/22 22:00 08/30/22 21:45 Enalapril Maleate 10 Mg 10 Mg Tablet PO 09/25/22 21:59 20 mg HS GLENNA Administration Hydrocortisone Sodium Succinate 100 mg 08/26/22 14:00 08/31/22 06:09 Hydrocortisone Sod Succinate 100 Mg/Vial Vial IV 09/25/22 13:59 100 mg Q8HT GLENNA Administration Hydromorphone HCl 0 mg 08/30/22 07:43 08/31/22 07:05 Hydromorphone Hcl 30 Mg/30 Ml Syringe IV 09/04/22 07:42 30 ml UD PRN Administration Sodium Chloride 1,000 mls @ 50 mls/hr 08/25/22 22:14 08/30/22 12:02 Sodium Chloride 0.9% 1000 Ml IV 09/24/22 22:13 50 mls/hr .Q20H GLENNA Administration Acyclovir Sodium 500 mg/ 100 mls @ 100 mls/hr 08/26/22 14:00 08/31/22 06:10 Sodium Chloride IV 09/25/22 13:59 100 mls/hr Q8HT GLENNA Administration Ketoconazole 1 gm 08/26/22 10:00 08/31/22 08:30 Ketoconazole 15 Gm Tube Cream TOP 09/25/22 09:59 1 gm BID GLENNA Administration Lactobacillus Acidophilus 2 tab 08/26/22 10:21 08/31/22 08:29 Lactobacillus Acidophilus 1 Tab Tablet PO 09/25/22 09:59 2 tab DAILY GLENNA Administration Metformin HCl 1,000 mg 08/26/22 17:00 08/31/22 08:29 Metformin Hcl 500 Mg Tablet PO 09/25/22 16:59 1,000 mg BIDWM GLENNA Administration Mineral Oil 30 ml 08/26/22 10:00 08/31/22 08:30 Mineral Oil 1 Ml Ml PO 09/25/22 09:59 30 ml TID GLENNA Administration Morphine Sulfate 15 mg 08/26/22 09:00 08/31/22 11:30 Morphine Sulfate 15 Mg Tablet Immediate Release PO 09/04/22 12:00 15 mg Q6HT GELNNA Administration Ondansetron HCl 4 mg 08/28/22 21:32 08/29/22 11:50 Ondansetron Hcl 4 Mg/2 Ml Vial IV 09/27/22 21:31 4 mg Q4H PRN PRN Administration NAUSEA/VOMITING Pantoprazole Sodium 40 mg 08/26/22 22:00 10/29/22 21:45 Protonix (Pantoprazole) 40 Mg Tablet PO 09/25/22 21:59 40 mg HS GLENNA Administration Simvastatin 10 mg 08/26/22 22:00 08/30/22 21:46 Simvastatin 10 Mg Tablet PO 09/25/22 21:59 10 mg HS GLENNA Administration Sterile Water 2 ml 08/29/22 22:00 08/30/22 21:46 Water For Injection,Sterile 10 Ml Vial IJ 09/28/22 21:59 2 ml Q8HT GLENNA Administration Discontinued Medications Generic Name Dose Route Start Last Admin Trade Name Freq PRN Reason Stop Dose Admin Acyclovir Sodium Confirm 08/25/22 20:28 Acyclovir Sodium 500 Mg/Vial Vial Administered 08/25/22 20:29 Dose 500 mg IV .STK-MED ONE Acyclovir Sodium Confirm 08/26/22 04:32 Acyclovir Sodium 500 Mg/Vial Vial Administered 08/26/22 04:33 Dose 500 mg IV .STK-MED ONE Duloxetine HCl 60 mg 08/26/22 23:47 08/26/22 00:22 Duloxetine Hcl 30 Mg Cap PO 08/26/22 23:48 60 mg BID ONE Administration Duloxetine HCl Confirm 08/25/22 23:53 Duloxetine Hcl 30 Mg Cap Administered 08/25/22 23:54 Dose 60 mg .ROUTE .STK-MED ONE Enalapril Maleate 20 mg 08/26/22 23:48 08/26/22 00:23 Enalapril Maleate 10 Mg 10 Mg Tablet PO 08/26/22 23:49 20 mg HS ONE Administration Enalapril Maleate Confirm 08/25/22 23:54 Enalapril Maleate 10 Mg 10 Mg Tablet Administered 08/25/22 23:55 Dose 20 mg .ROUTE .STK-MED ONE Hydrocortisone Sodium Succinate 100 mg 08/25/22 19:59 08/25/22 20:34 Hydrocortisone Sod Succinate 100 Mg/Vial Vial IV 08/25/22 20:00 100 mg STAT ONE Administration Hydrocortisone Sodium Succinate Confirm 08/25/22 20:28 Hydrocortisone Sod Succinate 100 Mg/Vial Vial Administered 08/25/22 20:29 Dose 100 mg .ROUTE .STK-MED ONE Hydrocortisone Sodium Succinate 100 mg 08/25/22 22:14 08/26/22 10:23 Hydrocortisone Sod Succinate 100 Mg/Vial Vial IV 09/24/22 22:13 Not Given Q8H GLENNA Hydromorphone HCl 1 mg 08/25/22 19:58 08/25/22 20:35 Hydromorphone 1 Mg/1ml Inj 1 Mg/Ml Syringe IV 08/25/22 19:59 1 mg STAT ONE Administration Hydromorphone HCl Confirm 08/25/22 20:28 Hydromorphone 1 Mg/1ml Inj 1 Mg/Ml Syringe Administered 08/25/22 20:29 Dose 1 mg .ROUTE .STK-MED ONE Hydromorphone HCl 1 mg 08/25/22 22:14 Hydromorphone 1 Mg/1ml Inj 1 Mg/Ml Syringe IV 08/30/22 22:13 Q4H PRN PRN PAIN Hydromorphone HCl 0 mg 08/29/22 15:31 Hydromorphone 1 Mg/1ml Inj 1 Mg/Ml Syringe IV 09/03/22 15:30 UD PRN Hydromorphone HCl Confirm 08/30/22 01:04 Hydromorphone Hcl 30 Mg/30 Ml Syringe Administered 08/30/22 01:05 Dose 30 mg .ROUTE .STK-MED ONE Hydromorphone/Sodium Chloride 30 mg 08/25/22 22:25 08/30/22 01:13 Hydromorphone Hcl/0.9% Nacl/Pf 30 Mg/30 Ml School Transportation Director.Syring IV 09/24/22 22:24 30 mg .STANDARD MEDICAL SCIENCE LIAISON DOSING PRN Administration PAIN Sodium Chloride 1,000 mls @ 100 mls/hr 08/25/22 20:00 08/25/22 20:35 Sodium Chloride 0.9% 1000 Ml IV 09/24/22 19:59 100 mls/hr .Q10H GLENNA Administration Acyclovir Sodium 500 mg/ 100 mls @ 100 mls/hr 08/25/22 19:59 08/25/22 20:33 Dextrose IV 08/25/22 20:58 100 mls/hr STAT ONE Administration Dextrose Confirm 08/25/22 20:29 D5w 100ml Mini Bag 100 Ml Administered 08/25/22 20:30 Dose 100 mls @ ud IV .STK-MED ONE Sodium Chloride Confirm 08/25/22 20:29 Sodium Chloride 0.9% 1000 Ml Administered 08/25/22 20:30 Dose 1,000 mls @ ud .ROUTE .STK-MED ONE Acyclovir Sodium 500 mg/ 100 mls @ 100 mls/hr 08/25/22 22:14 08/26/22 09:57 Sodium Chloride IV 09/24/22 22:13 Not Given Q8H GLENNA Sodium Chloride Confirm 08/26/22 04:33 Sodium Chloride 0.9% Administered 08/26/22 04:34 Dose 100 mls @ ud .ROUTE .STK-MED ONE Lactobacillus Acidophilus 2 tab 08/27/22 10:00 Lactobacillus Acidophilus 1 Tab Tablet PO 09/26/22 09:59 DAILY GLENNA Mineral Oil 30 ml 08/26/22 23:48 08/26/22 00:23 Mineral Oil 1 Ml Ml PO 08/26/22 23:49 30 ml TID ONE Administration Ondansetron HCl 4 mg 08/25/22 19:58 08/25/22 20:33 Ondansetron Hcl 4 Mg/2 Ml Vial IV 08/25/22 19:59 4 mg STAT ONE Administration Ondansetron HCl Confirm 08/25/22 20:28 Ondansetron Hcl 4 Mg/2 Ml Vial Administered 08/25/22 20:29 Dose 4 mg .ROUTE .STK-MED ONE Pantoprazole Sodium 20 mg 08/26/22 23:49 08/26/22 00:23 Pantoprazole 20 Mg Tab PO 08/26/22 23:50 20 mg HS ONE Administration Pantoprazole Sodium Confirm 08/25/22 23:53 Pantoprazole 20 Mg Tab Administered 08/25/22 23:54 Dose 20 mg PO .STK-MED ONE Simvastatin 10 mg 08/26/22 23:46 08/26/22 00:22 Simvastatin 10 Mg Tablet PO 08/26/22 23:47 10 mg HS ONE Administration Simvastatin Confirm 08/25/22 23:54 Simvastatin 10 Mg Tablet Administered 08/25/22 23:55 Dose 10 mg .ROUTE .STK-MED ONE Sterile Water Confirm 08/25/22 20:30 Water For Injection,Sterile 10 Ml Vial Administered 08/25/22 20:31 Dose 10 ml IJ .STK-MED ONE Sterile Water Confirm 08/26/22 04:33 Water For Injection,Sterile 10 Ml Vial Administered 08/26/22 04:34 Dose 10 ml IJ .STK-MED ONE Sterile Water Confirm 08/27/22 23:44 Water For Injection,Sterile 10 Ml Vial Administered 08/27/22 23:45 Dose 10 ml IJ .STK-MED ONE Sterile Water Confirm 08/29/22 14:06 Water For Injection,Sterile 10 Ml Vial Administered 08/29/22 14:07 Dose 10 ml IJ .STK-MED ONE Intake & Output (Last 24 hours) 08/29/22 08/30/22 08/31/22 09/01/22 11:59 11:59 11:59 11:59 Intake Total 3248 3517 4350 600 Output Total 4650 4350 4050 Balance -1402 -833 300 600 Weight 109 kg Orders (Last 24 hours) Category Date Time Status Discharge Routine Discharge 08/31/22 Ordered Discharge/Telephone Order Routine Discharge 08/31/22 Active - Vitals & Intake/Output Vital Signs: Vital Signs Temperature 97.5 F 08/31/22 08:00 Pulse Rate 73 08/31/22 08:00 Respiratory Rate 18 08/31/22 11:05 Blood Pressure 130/75 08/31/22 08:00 O2 Sat by Pulse Oximetry 96 08/31/22 11:05 Intake & Output: Intake & Output 08/29/22 08/30/22 08/31/22 09/01/22 11:59 11:59 11:59 11:59 Intake Total 3248 3517 4350 600 Output Total 4650 4350 4050 Balance -1402 -833 300 600 Weight 109 kg - Lab Result Diagrams: 08/29/22 04:50 08/29/22 04:50 - Procedures and Test Procedures and Tests throughout Hospitalization: Therapy Orders & Screens 08/26/22 08:43 PT Eval & Treat ( Order) ONCE Reason for Eval:: leg discomfort - interested in TENS unit on legs Diagnosis: Molaretts syndrome Discharge Exam General Appearance: no apparent distress, alert Neurologic Exam: alert, oriented x 3, cooperative, normal mood/affect, nml cerebellar function, sensation nml, No motor deficits Eye Exam: PERRL, EOMI, eyes nml inspection Ears, Nose, Throat Exam: normal ENT inspection, pharynx normal, moist mucous membranes Neck Exam: normal inspection, non-tender, supple, full range of motion Respiratory Exam: normal breath sounds, lungs clear, No respiratory distress Cardiovascular Exam: regular rate/rhythm, normal heart sounds Gastrointestinal/Abdomen Exam: soft, No tenderness, No mass Male Genitalia Exam: deferred Rectal Exam: deferred Back Exam: normal inspection, normal range of motion, No CVA tenderness, No vertebral tenderness Extremity Exam: normal inspection, normal range of motion Skin Exam: normal color, warm, dry Final Diagnosis/Problem List - Final Discharge Diagnosis/Problem (1) 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: Resolved Onset Date: ~11/01/18 Code(s): G03.2 - BENIGN RECURRENT MENINGITIS [MOLLARET] - Discharge Discharge Date: 08/31/22 Disposition: Home, Self-Care Condition: Stable Prescriptions: No Action Enalapril Maleate 10 mg [Vasotec 10 MG] 20 mg PO HS Multivitamin [Multi-Vitamin Daily] 1 each PO DAILY Aspirin 81 mg PO DAILY Mineral Oil 30 ml PO TID Testosterone Cypionate 1.25 ml IM UD Duloxetine HCl [Cymbalta] 60 mg PO BID Prednisone 10 mg [Deltasone 10 mg] 15 mg PO DAILY Morphine Sulfate/Pf [Morphine 10 mg/10 ml Vial] 15.6 mg IJ DAILY L.acidoph,Paracasei, B.lactis [Probiotic] 2 each PO DAILY Metformin HCl 500 mg [Glucophage 500 MG] 1,000 mg PO BIDWM Atorvastatin Calcium [Lipitor] 10 mg PO HS Morphine Sulfate Ir 15 mg [Msir 15 mg] 15 mg PO Q6H Omeprazole 40 mg PO HS Instructions: Generalized Neck Pain (DC) Follow up with: ANN ALEXIS MD [Primary Care Provider] - Call for Appointment (1 week )
== END 2022-08-31 12:25 | disposition home or self-care (01) | DRG 76 ==
LOC: ED 18:25 → MED SURG 22:13 → OBSVTOIN 08-26 08:43
PROVIDERS: ADMIT Family Medicine; ATTEND Family Medicine
DX: G03.2 Benign recurrent meningitis [Mollaret] (principal); R20.2 Paresthesia of skin; R60.9 Edema, unspecified; E11.9 Type 2 diabetes mellitus without complications; I10 Essential (primary) hypertension; Z79.899 Other long term (current) drug therapy; Z20.828 Contact with and (suspected) exposure to other viral communicable diseases
CPT/HCPCS: 0241U; 36000; 36415; 80053; 85025; 94762; 96374; 96375; 97161; 99285; G0283; G0378; 97014; J0133; J1170; J1720; J2405; A9270-GY

== ENCOUNTER 2022-09-23 17:24 | Inpatient (IN) | payer MEDICARE, BC ==
[2022-09-23] MEDS ORDERED: Hydromorphone 1 mg/ml Injection IV ONE (18:16)
[2022-09-23] MEDS ORDERED: Sodium Chloride 0.9% 1000 ML 1,000 ML IV STA (18:16)
[2022-09-23] MEDS ORDERED: Zofran 4 MG/2 ML VIAL IV ONE (18:16)
[2022-09-23] MEDS ORDERED: solu-CORTEF 100MG IV ONE (18:17)
[2022-09-23] MEDS ORDERED: Zovirax INJ*** 500 MG in D5w 100ML Mini Bag 100 ML 100 ML IV ONE (18:17)
--- NOTE | 2022-09-23 18:21 | ERPHSYRPT ---
- History of Present Illness Time Seen by Provider: 09/23/22 18:18 Source: patient Exam Limitations: no limitations Patient Subjective Stated Complaint: C/O neck pain that radiates into his head and back. Started yesterday. Triage Nursing Assessment: Patient ambulated back to ED. BLE braces noted. NO SOB. He is alert and oriented. No skin alterations to areas of pain. Physician History: This is a 52-year-old white male patient of Dr. Alexis who has recurrent pain that radiates into his head and into his back. 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 Patient's symptoms typically recur every 4 to 6 weeks. In addition, the patient has diabetes, hypertension, hyperlipidemia and gastroesophageal reflux disease. Dr. Alexis, his primary care physician, places him in the hospital under patient denies chest pain. He denies shortness of breath. Observation and give him IV hydration, IV steroids, IV acyclovir and intravenous Dilaudid. Timing/Duration: yesterday Severity: moderate Associated Symptoms: nausea, No shortness of breath, No chest pain Allergies/Adverse Reactions: pregabalin [From Lyrica] Adverse Reaction (Severe, Verified 09/23/22 17:57) Hives SOB hives azithromycin [From Zmax] Adverse Reaction (Mild, Verified 09/23/22 17:57) vomiting Home Medications: Aspirin 81 mg PO DAILY 01/24/14 [History] Enalapril Maleate 10 mg [Vasotec 10 MG] 20 mg PO HS 01/24/14 [History] Multivitamin [Multi-Vitamin Daily] 1 each PO DAILY 01/24/14 [History] Testosterone Cypionate 1 ml IM UD 10/09/14 [History] Duloxetine HCl [Cymbalta] 60 mg PO BID 04/23/15 [History] Metformin HCl 500 mg [Glucophage 500 MG] 1,000 mg PO BIDWM 04/20/20 [History] Atorvastatin Calcium [Lipitor] 10 mg PO HS 01/06/22 [History] Morphine Sulfate Ir 15 mg [Msir 15 mg] 15 mg PO Q6H 02/07/22 [History] Omeprazole 20 mg PO HS 07/01/22 [History] Imipramine HCl 25 mg PO HS 09/19/22 [History] Hx Tetanus, Diphtheria Vaccination/Date Given: Yes (february 2016) Hx Influenza Vaccination/Date Given: No (Doesn't get one) Hx Pneumococcal Vaccination/Date Given: Yes Immunizations Up to Date: Yes Travel Risk - International Travel Have you traveled outside of the country in past 3 weeks: No - Coronavirus Screening Are you exhibiting any of the following symptoms?: No Close contact with a COVID-19 positive Pt in past 14-21 Days: No - Vaccine Status Have you recieved a Covid-19 vaccination: Yes 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 - Review of Systems Constitutional: No Symptoms Eyes: No Symptoms Ears, Nose, & Throat: No Symptoms Respiratory: No Symptoms Cardiac: No Symptoms Abdominal/Gastrointestinal: No Symptoms Genitourinary Symptoms: No Symptoms Musculoskeletal: No Symptoms Skin: No Symptoms Neurological: Headache Psychological: No Symptoms Endocrine: No Symptoms Hematologic/Lymphatic: No Symptoms Immunological/Allergic: No Symptoms All Other Systems: Reviewed and Negative - Past Medical History Pertinent Past Medical History: Yes Neurological History: Other ENT History: No Pertinent History Cardiac History: Hypertension Respiratory History: No Pertinent History, Sleep Apnea Endocrine Medical History: No Pertinent History Musculoskeletal History: No Pertinent History GI Medical History: GERD, Other History: No Pertinent History Psycho-Social History: Depression Male Reproductive Disorders: No Pertinent History Other Medical History: Mollaret's, spleen removed - Past Surgical History Past Surgical History: Yes Neuro Surgical History: No Pertinent History Cardiac: No Pertinent History Respiratory: No Pertinent History Gastrointestinal: Appendectomy, Other Genitourinary: No Pertinent History Musculoskeletal: No Pertinent History Male Surgical History: Vasectomy Other Surgical History: splenectomy, 2 nasal surgeries - Social History Smoking Status: Never smoker Exposure to second hand smoke: No Alcohol Use: None Drug Use: none Patient Lives Alone: No Significant Family History: no pertinent family hx - Nursing Vital Signs Nursing Vital Signs: Initial Vital Signs Temperature 97.9 F 09/23/22 17:59 Pulse Rate 80 09/23/22 17:59 Respiratory Rate 17 09/23/22 17:59 Blood Pressure 140/85 09/23/22 17:59 O2 Sat by Pulse Oximetry 95 09/23/22 17:59 Pain Scale Pain Intensity [Neck] 10 Pain Intensity 10 - Physical Exam General Appearance: mild distress, alert, anxiety Eye Exam: PERRL/EOMI, eyes nml inspection Ears, Nose, Throat Exam: normal ENT inspection, moist mucous membranes Neck Exam: normal inspection, supple, full range of motion Respiratory Exam: normal breath sounds, lungs clear, airway intact, No chest tenderness, No respiratory distress Cardiovascular Exam: regular rate/rhythm, normal heart sounds, normal peripheral pulses Gastrointestinal/Abdomen Exam: soft, normal bowel sounds, No tenderness Rectal Exam: not done Back Exam: normal inspection, normal range of motion, No CVA tenderness Extremity Exam: normal inspection, normal range of motion, pelvis stable Neurologic Exam: alert, oriented x 3, cooperative, artificial inseminator II-XII nml as tested, normal mood/affect, nml cerebellar function, nml station & gait, sensation nml Skin Exam: normal color, warm, dry Lymphatic Exam: No adenopathy SpO2 Interpretation: normal SpO2: 95 O2 Delivery: Room Air Ordered Tests: Active Orders 24 hr Category Date Time Status IV Insertion STAT Care 09/23/22 18:16 Active CBC W DIFF Stat Lab 09/23/22 18:28 Completed CMP Stat Lab 09/23/22 18:28 Completed Medication Summary Generic Name Dose Route Start Last Admin Trade Name Freq PRN Reason Stop Dose Admin Sodium Chloride 1,000 mls @ 999 mls/hr 09/23/22 18:16 09/23/22 18:27 Sodium Chloride 0.9% 1000 Ml IV 09/23/22 19:16 999 mls/hr .Q1H1M STA Administration Acyclovir Sodium 500 mg/ 100 mls @ 100 mls/hr 09/23/22 18:17 09/23/22 18:27 Dextrose IV 09/23/22 19:16 100 mls/hr STAT ONE Administration Discontinued Medications Generic Name Dose Route Start Last Admin Trade Name Freq PRN Reason Stop Dose Admin Acyclovir Sodium Confirm 09/23/22 18:23 Acyclovir Sodium 500 Mg/Vial Vial Administered 09/23/22 18:24 Dose 500 mg IV .STK-MED ONE Hydrocortisone Sodium Succinate 100 mg 09/23/22 18:17 09/23/22 18:26 Hydrocortisone Sod Succinate 100 Mg/Vial Vial IV 09/23/22 18:18 100 mg STAT ONE Administration Hydrocortisone Sodium Succinate Confirm 09/23/22 18:24 Hydrocortisone Sod Succinate 100 Mg/Vial Vial Administered 09/23/22 18:25 Dose 100 mg .ROUTE .STK-MED ONE Hydromorphone HCl 2 mg 09/23/22 18:16 09/23/22 18:26 Hydromorphone 1 Mg/1ml Inj 1 Mg/Ml Syringe IV 09/23/22 18:17 2 mg STAT ONE Administration Hydromorphone HCl Confirm 09/23/22 18:24 Hydromorphone 1 Mg/1ml Inj 1 Mg/Ml Syringe Administered 09/23/22 18:25 Dose 2 mg .ROUTE .STK-MED ONE Sodium Chloride Confirm 09/23/22 18:24 Sodium Chloride 0.9% 1000 Ml Administered 09/23/22 18:25 Dose 1,000 mls @ ud .ROUTE .STK-MED ONE Dextrose Confirm 09/23/22 18:25 D5w 100ml Mini Bag 100 Ml Administered 09/23/22 18:26 Dose 100 mls @ ud IV .STK-MED ONE Ondansetron HCl 4 mg 09/23/22 18:16 09/23/22 18:26 Ondansetron Hcl 4 Mg/2 Ml Vial IV 09/23/22 18:17 4 mg STAT ONE Administration Ondansetron HCl Confirm 09/23/22 18:23 Ondansetron Hcl 4 Mg/2 Ml Vial Administered 09/23/22 18:24 Dose 4 mg .ROUTE .STK-MED ONE Lab/Rad Data: Laboratory Result Diagrams 09/23/22 18:28 09/23/22 18:28 Laboratory Results 09/23/22 09/23/22 09/23/22 Range/Units 18:28 18:28 18:25 WBC 11.1 H (4.0-10.5) x10^3/uL RBC 5.48 (4.1-5.6) x10^6/uL Hgb 15.0 (12.5-18.0) g/dL Hct 46.8 (42-50) % MCV 85.4 (78-100) fL MCH 27.4 (26-32) pg MCHC 32.1 (32-36) g/dL RDW 15.5 H (11.5-14.0) % Plt Count 472 H (150-450) x10^3/uL MPV 10.1 (7.5-11.0) fL Gran % 56.0 (36.0-66.0) % Immature Gran % (Auto) 0.4 (0.00-0.4) % Nucleat RBC Rel Count 0.0 (0.00-0.1) % Eos # (Auto) 0.61 H (0-0.5) x10^3/uL Immature Gran # (Auto) 0.04 H (0.00-0.03) x10^3u/L Absolute Lymphs (auto) 3.16 (1.0-4.6) x10^3/uL Absolute Monos (auto) 1.00 (0.0-1.3) x10^3/uL Absolute Nucleated RBC 0.00 (0.00-0.01) x10^3u/L Lymphocytes % 28.4 (24.0-44.0) % Monocytes % 9.0 (0.0-12.0) % Eosinophils % 5.5 H (0.00-5.0) % Basophils % 0.7 (0.0-0.4) % Absolute Granulocytes 6.22 (1.4-6.9) x10^3/uL Basophils # 0.08 (0-0.4) x10^3/uL Sodium 134 L (137-145) mmol/L Potassium 4.4 (3.5-5.1) mmol/L Chloride 100 (98-107) mmol/L Carbon Dioxide 28 (22-30) mmol/L Anion Gap 11.5 (5-15) MEQ/L BUN 14 (9-20) mg/dL Creatinine 0.72 (0.66-1.25) mg/dL Estimated GFR > 60.0 ML/MIN Glucose 86 (74-106) mg/dL Calcium 8.8 (8.4-10.2) mg/dL Total Bilirubin 0.70 (0.2-1.3) mg/dL AST 40 (17-59) U/L ALT 34 (0-50) U/L Alkaline Phosphatase 96 (38-126) U/L Serum Total Protein 7.7 (6.3-8.2) g/dL Albumin 4.5 (3.5-5.0) g/dL Influenza Type A Ag NEGATIVE (NEGATIVE) Influenza Type B Ag NEGATIVE (NEGATIVE) RSV (PCR) NEGATIVE (Negative) SARS-CoV-2 (PCR) NEGATIVE (NEGATIVE) - Progress Progress: improved - Departure Departure Disposition: Observation Clinical Impression: Mollaret's syndrome (benign recurrent meningitis) Condition: Stable Critical Care Time: No Referrals: ANN ALEXIS MD [Primary Care Provider] - Follow up/PCP as directed
[2022-09-23] MEDS ORDERED: Zovirax INJ IV ONE (18:23)
[2022-09-23] MEDS ORDERED: Zofran 4 MG/2 ML VIAL ONE (18:23)
[2022-09-23] MEDS ORDERED: Sodium Chloride 0.9% 1000 ML 1,000 ML ONE (18:24)
[2022-09-23] MEDS ORDERED: solu-CORTEF 100MG ONE (18:24)
[2022-09-23] MEDS ORDERED: Hydromorphone 1 mg/ml Injection ONE (18:24)
[2022-09-23] MEDS ORDERED: D5w 100ML Mini Bag 100 ML 100 ML IV ONE (18:25)
[2022-09-23 18:43] LABS: Absolute Neutrophil Ct (ANC) 6.22 x10^3/uL (1.4-6.9); Basophil (Absolute #) 0.08 x10^3/uL (0-0.4); Eosinophil % 5.5 % (0.00-5.0); Eosinophil (Absolute #) 0.61 x10^3/uL (0-0.5); Hematocrit 46.8 % (42-50); Lymphocyte (Absolute #) 3.16 x10^3/uL (1.0-4.6); Lymphocytes % 28.4 % (24.0-44.0); Mean Cell Volume 85.4 fL (78-100); Mean Corpuscular Hemoglobin 27.4 pg (26-32); Mean Corpuscular Hgb Concent. 32.1 g/dL (32-36); Mean Platelet Volume 10.1 fL (7.5-11.0); Platelet Count 472 x10^3/uL (150-450); Red Blood Count 5.48 x10^6/uL (4.1-5.6); Red Cell Distribution Width 15.5 % (11.5-14.0); White Blood Count 11.1 x10^3/uL (4.0-10.5)
[2022-09-23 18:48] LABS: ALBUMIN 4.5 g/dL (3.5-5.0); ALKALINE PHOSPHATASE 96 U/L (38-126); ANION GAP 11.5 MEQ/L (5-15); BLOOD UREA NITROGEN 14 mg/dL (9-20); CHLORIDE 100 mmol/L (98-107); Calcium 8.8 mg/dL (8.4-10.2); Carbon Dioxide 28 mmol/L (22-30); Creatinine 1 0.72 mg/dL (0.66-1.25); EST GLOMERULAR FILTRATION RATE > 60.0 ML/MIN; Glucose 86 mg/dL (74-106); Potassium 4.4 mmol/L (3.5-5.1); SGOT/AST 40 U/L (17-59); SGPT/ALT 34 U/L (0-50); SODIUM 134 mmol/L (137-145); Total Protein 7.7 g/dL (6.3-8.2)
[2022-09-23 19:08] LABS: INFLUENZA A NEGATIVE (NEGATIVE); INFLUENZA B NEGATIVE (NEGATIVE); RESPIRATORY SYNCTIAL VIRUS NEGATIVE (Negative); SARS-CoV-2 Xpert Express NEGATIVE (NEGATIVE)
[2022-09-23] MEDS ORDERED: Zofran 4 MG/2 ML VIAL IV PRN (19:42)
[2022-09-23] MEDS ORDERED: TYLENOL 325 MG PO PRN (19:42)
[2022-09-23] MEDS ORDERED: SODIUM CHLORIDE MINI IV SCH (19:42)
[2022-09-23] MEDS ORDERED: Hydromorphone 1 mg/ml Injection IV PRN (19:42)
[2022-09-23] MEDS ORDERED: solu-CORTEF 100MG IV SCH (19:42)
[2022-09-23] MEDS ORDERED: ZOVIRAX IV SCH (19:42)
[2022-09-23] MEDS: DILAUDID 1 MG/1ML PCA SYRINGE IV PRN (20:23)
[2022-09-23] MEDS ORDERED: ZOCOR 20MG PO ONE (22:00)
[2022-09-23] MEDS ORDERED: Cymbalta 30 MG Capsule PO ONE (22:00)
[2022-09-23] MEDS ORDERED: Protonix 40MG Tablet PO ONE (22:00)
[2022-09-23] MEDS ORDERED: Zocor 10MG ONE (22:27)
[2022-09-23] MEDS: Vasotec 10 MG PO ONE ×2 (22:57→22:58)
[2022-09-23] MEDS: MSIR 15 MG PO SCH (22:58)
[2022-09-23] MEDS: Sodium Chloride 0.9% 1000 ML 1,000 ML IV SCH (23:04)
[2022-09-24] MEDS: ZOVIRAX IV SCH ×3 (02:19→17:27)
[2022-09-24] MEDS: solu-CORTEF 100MG IV SCH ×3 (02:19→17:27)
[2022-09-24] MEDS: SODIUM CHLORIDE MINI IV SCH ×3 (02:19→17:27)
[2022-09-24] MEDS: MSIR 15 MG PO SCH ×4 (03:40→21:32)
[2022-09-24 04:55] LABS: Absolute Neutrophil Ct (ANC) 7.45 x10^3/uL (1.4-6.9); Basophil (Absolute #) 0.08 x10^3/uL (0-0.4); Eosinophil % 1.4 % (0.00-5.0); Eosinophil (Absolute #) 0.14 x10^3/uL (0-0.5); Hematocrit 44.7 % (42-50); Hemoglobin 14.3 g/dL (12.5-18.0); Lymphocyte (Absolute #) 1.55 x10^3/uL (1.0-4.6); Lymphocytes % 15.9 % (24.0-44.0); Mean Cell Volume 85.8 fL (78-100); Mean Corpuscular Hemoglobin 27.4 pg (26-32); Mean Platelet Volume 9.6 fL (7.5-11.0); Monocyte (Absolute #) 0.49 x10^3/uL (0.0-1.3); Neutrophil % 76.6 % (36.0-66.0); Platelet Count 462 x10^3/uL (150-450); Red Blood Count 5.21 x10^6/uL (4.1-5.6); Red Cell Distribution Width 15.5 % (11.5-14.0); White Blood Count 9.7 x10^3/uL (4.0-10.5)
[2022-09-24 05:18] LABS: ALBUMIN 4.1 g/dL (3.5-5.0); ALKALINE PHOSPHATASE 101 U/L (38-126); ANION GAP 9.4 MEQ/L (5-15); BLOOD UREA NITROGEN 15 mg/dL (9-20); CHLORIDE 100 mmol/L (98-107); Calcium 8.5 mg/dL (8.4-10.2); Carbon Dioxide 29 mmol/L (22-30); Creatinine 1 0.83 mg/dL (0.66-1.25); EST GLOMERULAR FILTRATION RATE > 60.0 ML/MIN; Glucose 172 mg/dL (74-106); Potassium 4.2 mmol/L (3.5-5.1); SGOT/AST 30 U/L (17-59); SGPT/ALT 32 U/L (0-50); SODIUM 134 mmol/L (137-145); Total Protein 7.1 g/dL (6.3-8.2)
[2022-09-24] MEDS ORDERED: MSIR 15 MG PO SCH (07:30)
[2022-09-24] MEDS: MINERAL OIL PO SCH ×3 (09:26→21:33)
[2022-09-24] MEDS: Cymbalta 30 MG Capsule PO SCH ×2 (09:26→21:33)
[2022-09-24] MEDS: Sterile H2O 10 ml IJ SCH ×2 (09:26→17:27)
[2022-09-24] MEDS: ECOTRIN 81 MG PO SCH (09:26)
[2022-09-24] MEDS ORDERED: NON-FORMULARY ITEM (Aspirin [Aspirin] 81 MG Tablet) PO SCH (10:00)
[2022-09-24] MEDS ORDERED: NON-FORMULARY ITEM (Duloxetine Hcl [Cymbalta] 60 MG Capsule.Dr) PO SCH (10:00)
--- NOTE | 2022-09-24 10:23 | PCM.HP ---
History of Present Illness - Chief Complaint Chief Complaint: Mollarett's syndrome History of Present Illness: is a 52 year old male with chronic recurrent aseptic meningitis (Mollaret's sydnrome). He presented to ER with his usual symptoms of intractable head and neck pain, no fever, no numbness, tingling, weakness or visual changes. He typically requires hospitalization with IV acycvlovir, solu cortef and narcotics for symptom relief. He will typically improved within 3-4 days but has frequent exacerbations requiring hospitalization. He is under the care of Dr Alcantara as his neurologist and unfortunately there aren't great usp treatment options for his condition, he also sees Dr Greer for pain management. - Review of Systems Constitutional: No Symptoms Respiratory: No Cough, No Short Of Breath Cardiac: No Chest Pain, No Edema, No Syncope Abdominal/Gastrointestinal: No Abdominal Pain, No Nausea, No Vomiting, No Diarrhea Genitourinary Symptoms: No Dysuria Musculoskeletal: Neck Pain Neurological: Headache, No Dizziness, No Focal Weakness, No Parasthesia, No Seizure Psychological: No Symptoms All Other Systems: Reviewed and Negative Medications & Allergies Home Medications: Home Medication List Aspirin 81 mg PO DAILY 01/24/14 [History Confirmed 09/23/22] Enalapril Maleate 10 mg [Vasotec 10 MG] 20 mg PO HS 01/24/14 [History Confirmed 09/23/22] Multivitamin [Multi-Vitamin Daily] 1 each PO DAILY 01/24/14 [History Confirmed 09/23/22] Testosterone Cypionate 1 ml IM UD 10/09/14 [History Confirmed 09/23/22] Duloxetine HCl [Cymbalta] 60 mg PO BID 04/23/15 [History Confirmed 09/23/22] Metformin HCl 500 mg [Glucophage 500 MG] 1,000 mg PO BIDWM 04/20/20 [History Confirmed 09/23/22] Atorvastatin Calcium [Lipitor] 10 mg PO HS 01/06/22 [History Confirmed 09/23/22] Morphine Sulfate Ir 15 mg [Msir 15 mg] 15 mg PO Q6H 02/07/22 [History Confirmed 09/23/22] Omeprazole 20 mg PO HS 07/01/22 [History Confirmed 09/23/22] Allergies/Adverse Reactions: Allergies Allergy/AdvReac Type Severity Reaction Status Date / Time pregabalin [From Lyrica] AdvReac Severe Hives Verified 09/23/22 17:57 azithromycin [From Zmax] AdvReac Mild Verified 09/23/22 17:57 - Past Medical History Past Medical History: Yes Neurological History: Other ENT History: No Pertinent History Cardiac History: Hypertension Respiratory History: No Pertinent History, Sleep Apnea Endocrine Medical History: No Pertinent History Musculoskelatal History: No Pertinent History GI Medical History: GERD, Other History: No Pertinent History Pyscho-Social History: Depression Male Reproductive Disorders: No Pertinent History Comment: Mollaret's, spleen removed - Past Surgical History Past Surgical History: Yes Neuro Surgical History: No Pertinent History Cardiac History: No Pertinent History Respiratory Surgery: No Pertinent History GI Surgical History: Appendectomy, Other Genitourinary Surgical Hx: No Pertinent History Musculskeletal Surgical Hx: No Pertinent History Male Surgical History: Vasectomy Other Surgical History: splenectomy, 2 nasal surgeries - Social History Smoking Status: Never smoker Exposure to second hand smoke: No Alcohol: None Drug Use: none Significant Family History: no pertinent family hx - Physical Exam Vital Signs: Vital Signs - 24 hr Temp Pulse Resp BP Pulse Ox 09/24/22 08:00 96.8 F 85 20 120/88 95 09/24/22 07:30 94 L 09/24/22 05:30 22 96 09/24/22 04:09 97.9 F 83 20 125/54 96 09/24/22 00:23 20 95 09/23/22 23:42 97.5 F 104 H 20 137/83 95 09/23/22 23:10 97.8 F 91 H 18 131/63 96 09/23/22 22:28 93 L 09/23/22 20:23 18 98 09/23/22 19:20 91 H 18 93/89 95 09/23/22 19:18 95 09/23/22 18:42 83 140/85 95 09/23/22 17:59 97.9 F 80 17 140/85 95 General Appearance: no apparent distress, obese Neurologic Exam: alert, oriented x 3, cooperative Neck Exam: supple, limited range of motion Respiratory Exam: normal breath sounds, lungs clear, No respiratory distress Cardiovascular Exam: regular rate/rhythm, normal heart sounds, normal peripheral pulses Gastrointestinal/Abdomen Exam: soft, normal bowel sounds, No tenderness, No mass Extremity Exam: normal inspection, normal range of motion, pelvis stable Skin Exam: normal color, warm, dry, No rash Results - Labs Lab/Micro Results: Lab Results-Last 24 Hours 09/23/22 09/23/22 09/23/22 Range/Units 18:25 18:28 18:28 WBC 11.1 H (4.0-10.5) x10^3/uL RBC 5.48 (4.1-5.6) x10^6/uL Hgb 15.0 (12.5-18.0) g/dL Hct 46.8 (42-50) % MCV 85.4 (78-100) fL MCH 27.4 (26-32) pg MCHC 32.1 (32-36) g/dL RDW 15.5 H (11.5-14.0) % Plt Count 472 H (150-450) x10^3/uL MPV 10.1 (7.5-11.0) fL Gran % 56.0 (36.0-66.0) % Immature Gran % (Auto) 0.4 (0.00-0.4) % Nucleat RBC Rel Count 0.0 (0.00-0.1) % Eos # (Auto) 0.61 H (0-0.5) x10^3/uL Immature Gran # (Auto) 0.04 H (0.00-0.03) x10^3u/L Absolute Lymphs (auto) 3.16 (1.0-4.6) x10^3/uL Absolute Monos (auto) 1.00 (0.0-1.3) x10^3/uL Absolute Nucleated RBC 0.00 (0.00-0.01) x10^3u/L Lymphocytes % 28.4 (24.0-44.0) % Monocytes % 9.0 (0.0-12.0) % Eosinophils % 5.5 H (0.00-5.0) % Basophils % 0.7 (0.0-0.4) % Absolute Granulocytes 6.22 (1.4-6.9) x10^3/uL Basophils # 0.08 (0-0.4) x10^3/uL Sodium 134 L (137-145) mmol/L Potassium 4.4 (3.5-5.1) mmol/L Chloride 100 (98-107) mmol/L Carbon Dioxide 28 (22-30) mmol/L Anion Gap 11.5 (5-15) MEQ/L BUN 14 (9-20) mg/dL Creatinine 0.72 (0.66-1.25) mg/dL Estimated GFR > 60.0 ML/MIN Glucose 86 (74-106) mg/dL Calcium 8.8 (8.4-10.2) mg/dL Total Bilirubin 0.70 (0.2-1.3) mg/dL AST 40 (17-59) U/L ALT 34 (0-50) U/L Alkaline Phosphatase 96 (38-126) U/L Serum Total Protein 7.7 (6.3-8.2) g/dL Albumin 4.5 (3.5-5.0) g/dL Influenza Type A Ag NEGATIVE (NEGATIVE) Influenza Type B Ag NEGATIVE (NEGATIVE) RSV (PCR) NEGATIVE (Negative) SARS-CoV-2 (PCR) NEGATIVE (NEGATIVE) 09/24/22 09/24/22 Range/Units 04:35 04:35 WBC 9.7 (4.0-10.5) x10^3/uL RBC 5.21 (4.1-5.6) x10^6/uL Hgb 14.3 (12.5-18.0) g/dL Hct 44.7 (42-50) % MCV 85.8 (78-100) fL MCH 27.4 (26-32) pg MCHC 32.0 (32-36) g/dL RDW 15.5 H (11.5-14.0) % Plt Count 462 H (150-450) x10^3/uL MPV 9.6 (7.5-11.0) fL Gran % 76.6 H (36.0-66.0) % Immature Gran % (Auto) 0.3 (0.00-0.4) % Nucleat RBC Rel Count 0.0 (0.00-0.1) % Eos # (Auto) 0.14 (0-0.5) x10^3/uL Immature Gran # (Auto) 0.03 (0.00-0.03) x10^3u/L Absolute Lymphs (auto) 1.55 (1.0-4.6) x10^3/uL Absolute Monos (auto) 0.49 (0.0-1.3) x10^3/uL Absolute Nucleated RBC 0.00 (0.00-0.01) x10^3u/L Lymphocytes % 15.9 L (24.0-44.0) % Monocytes % 5.0 (0.0-12.0) % Eosinophils % 1.4 (0.00-5.0) % Basophils % 0.8 (0.0-0.4) % Absolute Granulocytes 7.45 H (1.4-6.9) x10^3/uL Basophils # 0.08 (0-0.4) x10^3/uL Sodium 134 L (137-145) mmol/L Potassium 4.2 (3.5-5.1) mmol/L Chloride 100 (98-107) mmol/L Carbon Dioxide 29 (22-30) mmol/L Anion Gap 9.4 (5-15) MEQ/L BUN 15 (9-20) mg/dL Creatinine 0.83 (0.66-1.25) mg/dL Estimated GFR > 60.0 ML/MIN Glucose 172 H (74-106) mg/dL Calcium 8.5 (8.4-10.2) mg/dL Total Bilirubin 0.50 (0.2-1.3) mg/dL AST 30 (17-59) U/L ALT 32 (0-50) U/L Alkaline Phosphatase 101 (38-126) U/L Serum Total Protein 7.1 (6.3-8.2) g/dL Albumin 4.1 (3.5-5.0) g/dL Influenza Type A Ag (NEGATIVE) Influenza Type B Ag (NEGATIVE) RSV (PCR) (Negative) SARS-CoV-2 (PCR) (NEGATIVE) Assessment/Plan (1) 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: Acute Assessment & Plan: continue IV acyclovir, solu cortef and dilaudid 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 Code(s): G03.2 - BENIGN RECURRENT MENINGITIS [MOLLARET] (2) Cephalgia Current Visit: No Status: Acute Onset Date: ~11/01/18 Code(s): R51 - HEADACHE * DO NOT USE * (3) Type 2 diabetes mellitus Current Visit: No Status: Chronic Qualifiers: Assessment & Plan: sliding scale coverage due to steroids
[2022-09-24] MEDS: DILAUDID 1 MG/1ML PCA SYRINGE IV PRN (11:05)
[2022-09-24] MEDS: HUMALOG SQ PRN ×3 (12:20→21:46)
[2022-09-24] MEDS: Sodium Chloride 0.9% 1000 ML 1,000 ML IV SCH ×2 (13:45→19:27)
[2022-09-24] MEDS: Vasotec 10 MG PO SCH (21:32)
[2022-09-24] MEDS: Zocor 10MG PO SCH (21:32)
[2022-09-24] MEDS: Protonix 20MG Tablet PO SCH (21:32)
[2022-09-24] MEDS ORDERED: NON-FORMULARY ITEM (Omeprazole [Omeprazole] 20 MG Capsule.Dr) PO SCH (22:00)
[2022-09-24] MEDS ORDERED: ENALAPRIL MALEATE 10 MG PO SCH (22:00)
[2022-09-24] MEDS ORDERED: NON-FORMULARY ITEM (Atorvastatin Calcium 10 MG Tablet) PO SCH (22:00)
[2022-09-25] MEDS: ZOVIRAX IV SCH ×3 (01:03→18:25)
[2022-09-25] MEDS: Sterile H2O 10 ml IJ SCH ×3 (01:03→18:24)
[2022-09-25] MEDS: SODIUM CHLORIDE MINI IV SCH ×3 (01:03→18:25)
[2022-09-25] MEDS: solu-CORTEF 100MG IV SCH ×3 (01:03→18:24)
[2022-09-25] MEDS: Sodium Chloride 0.9% 1000 ML 1,000 ML IV SCH ×3 (01:04→21:54)
[2022-09-25] MEDS: HYDROMORPHONE 30 MG/30 ML-NS IV PRN ×2 (02:42→19:33)
[2022-09-25 05:54] LABS: Basophil (Absolute #) 0.05 x10^3/uL (0-0.4); Eosinophil % 0.1 % (0.00-5.0); Eosinophil (Absolute #) 0.01 x10^3/uL (0-0.5); Hematocrit 43.3 % (42-50); Hemoglobin 13.4 g/dL (12.5-18.0); Lymphocyte (Absolute #) 1.62 x10^3/uL (1.0-4.6); Lymphocytes % 17.3 % (24.0-44.0); Mean Cell Volume 87.8 fL (78-100); Mean Corpuscular Hemoglobin 27.2 pg (26-32); Mean Corpuscular Hgb Concent. 30.9 g/dL (32-36); Mean Platelet Volume 9.9 fL (7.5-11.0); Monocyte (Absolute #) 0.35 x10^3/uL (0.0-1.3); Monocytes % 3.7 % (0.0-12.0); Neutrophil % 77.9 % (36.0-66.0); Platelet Count 448 x10^3/uL (150-450); Red Blood Count 4.93 x10^6/uL (4.1-5.6); Red Cell Distribution Width 15.5 % (11.5-14.0); White Blood Count 9.4 x10^3/uL (4.0-10.5)
[2022-09-25] MEDS: MSIR 15 MG PO SCH ×4 (06:01→23:42)
[2022-09-25 06:18] LABS: ANION GAP 11.2 MEQ/L (5-15); BLOOD UREA NITROGEN 10 mg/dL (9-20); CHLORIDE 103 mmol/L (98-107); Calcium 8.1 mg/dL (8.4-10.2); Carbon Dioxide 25 mmol/L (22-30); EST GLOMERULAR FILTRATION RATE > 60.0 ML/MIN; Glucose 265 mg/dL (74-106); Potassium 4.4 mmol/L (3.5-5.1); SODIUM 135 mmol/L (137-145)
[2022-09-25] MEDS: ECOTRIN 81 MG PO SCH (08:38)
[2022-09-25] MEDS: Cymbalta 30 MG Capsule PO SCH ×2 (08:38→21:55)
[2022-09-25] MEDS: MINERAL OIL PO SCH ×3 (08:40→21:57)
[2022-09-25] MEDS ORDERED: Ambien 5 MG Tablet PO PRN (09:42)
--- NOTE | 2022-09-25 09:44 | PCM.NOTE ---
Date and Time: 09/25/22 09 Subjective Assessment: pain and symptoms are unchanged, he is unable to sleep and feels this is a major factor in his exacerbations. Objective Exam General Appearance: no apparent distress, obese Neurologic Exam: alert, oriented x 3 Respiratory Exam: normal breath sounds, lungs clear, No respiratory distress Cardiovascular Exam: regular rate/rhythm, normal heart sounds Gastrointestinal/Abdomen Exam: soft, No tenderness, No mass Extremity Exam: normal inspection, normal range of motion OBJECTIVE DATA Vital Signs: Vital Signs - 24 hr Temp Pulse Resp BP Pulse Ox 09/25/22 07:13 97.0 F 73 17 134/65 96 09/25/22 06:16 95 09/25/22 06:00 20 95 09/25/22 03:56 97.1 F 89 18 110/56 100 09/25/22 02:42 20 94 L 09/25/22 00:00 18 99 09/24/22 23:43 97.3 F 76 18 140/63 99 09/24/22 20:00 20 97 09/24/22 19:58 97.9 F 87 20 126/69 97 09/24/22 18:45 95 09/24/22 16:00 96.0 F 83 16 131/76 97 09/24/22 12:00 97.1 F 91 H 20 151/61 95 09/24/22 11:05 18 96 Pain Assessment - Last Documented Pain Intensity [Neck] 10 Pain Intensity 9 Pain Scale Used 0-10 Pain Scale Intake and Output: Intake & Output 09/22/22 09/23/22 09/24/22 09/25/22 11:59 11:59 11:59 11:59 Intake Total 2632 2250 Output Total 800 4300 Balance 1832 -2050 Weight 111.2 kg Lab Results: Lab Results-Last 24 Hours 09/24/22 09/24/22 09/24/22 Range/Units 12:00 16:29 21:38 WBC (4.0-10.5) x10^3/uL RBC (4.1-5.6) x10^6/uL Hgb (12.5-18.0) g/dL Hct (42-50) % MCV (78-100) fL MCH (26-32) pg MCHC (32-36) g/dL RDW (11.5-14.0) % Plt Count (150-450) x10^3/uL MPV (7.5-11.0) fL Gran % (36.0-66.0) % Immature Gran % (Auto) (0.00-0.4) % Nucleat RBC Rel Count (0.00-0.1) % Eos # (Auto) (0-0.5) x10^3/uL Immature Gran # (Auto) (0.00-0.03) x10^3u/L Absolute Lymphs (auto) (1.0-4.6) x10^3/uL Absolute Monos (auto) (0.0-1.3) x10^3/uL Absolute Nucleated RBC (0.00-0.01) x10^3u/L Lymphocytes % (24.0-44.0) % Monocytes % (0.0-12.0) % Eosinophils % (0.00-5.0) % Basophils % (0.0-0.4) % Absolute Granulocytes (1.4-6.9) x10^3/uL Basophils # (0-0.4) x10^3/uL Sodium (137-145) mmol/L Potassium (3.5-5.1) mmol/L Chloride (98-107) mmol/L Carbon Dioxide (22-30) mmol/L Anion Gap (5-15) MEQ/L BUN (9-20) mg/dL Creatinine (0.66-1.25) mg/dL Estimated GFR ML/MIN Glucose (74-106) mg/dL POC Glucometer 194 H 194 H 254 H (74 to 106) mg/dL Calcium (8.4-10.2) mg/dL 09/25/22 09/25/22 09/25/22 Range/Units 05:40 05:40 07:08 WBC 9.4 (4.0-10.5) x10^3/uL RBC 4.93 (4.1-5.6) x10^6/uL Hgb 13.4 (12.5-18.0) g/dL Hct 43.3 (42-50) % MCV 87.8 (78-100) fL MCH 27.2 (26-32) pg MCHC 30.9 L (32-36) g/dL RDW 15.5 H (11.5-14.0) % Plt Count 448 (150-450) x10^3/uL MPV 9.9 (7.5-11.0) fL Gran % 77.9 H (36.0-66.0) % Immature Gran % (Auto) 0.5 H (0.00-0.4) % Nucleat RBC Rel Count 0.0 (0.00-0.1) % Eos # (Auto) 0.01 (0-0.5) x10^3/uL Immature Gran # (Auto) 0.05 H (0.00-0.03) x10^3u/L Absolute Lymphs (auto) 1.62 (1.0-4.6) x10^3/uL Absolute Monos (auto) 0.35 (0.0-1.3) x10^3/uL Absolute Nucleated RBC 0.00 (0.00-0.01) x10^3u/L Lymphocytes % 17.3 L (24.0-44.0) % Monocytes % 3.7 (0.0-12.0) % Eosinophils % 0.1 (0.00-5.0) % Basophils % 0.5 (0.0-0.4) % Absolute Granulocytes 7.30 H (1.4-6.9) x10^3/uL Basophils # 0.05 (0-0.4) x10^3/uL Sodium 135 L (137-145) mmol/L Potassium 4.4 (3.5-5.1) mmol/L Chloride 103 (98-107) mmol/L Carbon Dioxide 25 (22-30) mmol/L Anion Gap 11.2 (5-15) MEQ/L BUN 10 (9-20) mg/dL Creatinine 0.70 (0.66-1.25) mg/dL Estimated GFR > 60.0 ML/MIN Glucose 265 H (74-106) mg/dL POC Glucometer 184 H (74 to 106) mg/dL Calcium 8.1 L (8.4-10.2) mg/dL Assessment/Plan (1) 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: Acute Assessment & Plan: continue current management with IV acyclovir, steroids 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 ambien prn order placed and patient notified he can ask for sleeping med if he would like to try tonight. Code(s): G03.2 - BENIGN RECURRENT MENINGITIS [MOLLARET] (2) Cephalgia Current Visit: No Status: Acute Onset Date: ~11/01/18 Code(s): R51 - HEADACHE * DO NOT USE * (3) Type 2 diabetes mellitus Current Visit: No Status: Chronic Qualifiers:
[2022-09-25] MEDS: Vasotec 10 MG PO SCH (21:55)
[2022-09-25] MEDS: Protonix 20MG Tablet PO SCH (21:55)
[2022-09-25] MEDS: Zocor 10MG PO SCH (21:55)
[2022-09-25] MEDS: HUMALOG SQ PRN (21:55)
[2022-09-26] MEDS: SODIUM CHLORIDE MINI IV SCH ×3 (02:19→18:28)
[2022-09-26] MEDS: ZOVIRAX IV SCH ×3 (02:19→18:28)
[2022-09-26] MEDS: solu-CORTEF 100MG IV SCH ×3 (02:20→18:27)
[2022-09-26] MEDS: Sterile H2O 10 ml IJ SCH ×3 (02:20→18:28)
[2022-09-26] MEDS: MSIR 15 MG PO SCH ×3 (06:12→18:27)
--- NOTE | 2022-09-26 09:30 | PCM.NOTE ---
Date and Time: 09/26/22928 Subjective Assessment: patient slept a couple of hours last night and notes some improvement in his pain and symptoms. still not feeling well Objective Exam General Appearance: no apparent distress, obese Neurologic Exam: alert, oriented x 3 Neck Exam: supple Respiratory Exam: normal breath sounds, lungs clear, No respiratory distress Cardiovascular Exam: regular rate/rhythm, normal heart sounds Gastrointestinal/Abdomen Exam: soft, No tenderness, No mass OBJECTIVE DATA Vital Signs: Vital Signs - 24 hr Temp Pulse Resp BP Pulse Ox 09/26/22 07:33 20 96 09/26/22 07:14 97.7 F 67 18 141/80 97 09/26/22 06:00 18 94 L 09/26/22 04:00 97.1 F 87 18 146/62 98 09/26/22 03:33 18 95 09/26/22 02:00 20 97 09/25/22 23:33 18 99 09/25/22 22:00 18 94 L 09/25/22 19:57 97.3 F 73 18 141/79 98 09/25/22 19:07 96 09/25/22 16:00 97.5 F 70 17 128/82 94 L 09/25/22 12:00 97.1 F 86 18 139/84 95 09/25/22 10:00 17 96 Pain Assessment - Last Documented Pain Intensity [Neck] 10 Pain Intensity 8 Pain Scale Used 0-10 Pain Scale Intake and Output: Intake & Output 09/23/22 09/24/22 09/25/22 09/26/22 11:59 11:59 11:59 11:59 Intake Total 2632 2250 4722 Output Total 800 4300 4080 Balance 1832 -2050 642 Weight 111.2 kg Lab Results: Lab Results-Last 24 Hours 09/25/22 09/25/22 09/25/22 Range/Units 11:25 16:16 21:41 POC Glucometer 198 H 144 H 293 H (74 to 106) mg/dL 09/26/22 Range/Units 07:02 POC Glucometer 155 H (74 to 106) mg/dL Assessment/Plan (1) 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: Acute Assessment & Plan: continue IV acyclovir and solu cortef, slowly improving. Code(s): G03.2 - BENIGN RECURRENT MENINGITIS [MOLLARET] (2) Cephalgia Current Visit: No Status: Acute Onset Date: ~11/01/18 Code(s): R51 - HEADACHE * DO NOT USE * (3) Type 2 diabetes mellitus Current Visit: No Status: Chronic Qualifiers:
[2022-09-26] MEDS ORDERED: Zovirax INJ IV ONE (10:03)
[2022-09-26] MEDS: Cymbalta 30 MG Capsule PO SCH ×2 (10:46→21:36)
[2022-09-26] MEDS: ECOTRIN 81 MG PO SCH (10:47)
[2022-09-26] MEDS: MINERAL OIL PO SCH ×3 (10:50→21:36)
[2022-09-26] MEDS: HYDROMORPHONE 30 MG/30 ML-NS IV PRN (11:14)
[2022-09-26] MEDS: Sodium Chloride 0.9% 1000 ML 1,000 ML IV SCH ×2 (11:23→22:18)
[2022-09-26] MEDS: HUMALOG SQ PRN ×3 (11:35→21:41)
[2022-09-26] MEDS: Vasotec 10 MG PO SCH (21:36)
[2022-09-26] MEDS: Zocor 10MG PO SCH (21:36)
[2022-09-26] MEDS: Protonix 20MG Tablet PO SCH (21:36)
[2022-09-27] MEDS: MSIR 15 MG PO SCH ×4 (00:32→17:56)
[2022-09-27] MEDS: SODIUM CHLORIDE MINI IV SCH ×3 (02:35→17:57)
[2022-09-27] MEDS: Sterile H2O 10 ml IJ SCH ×3 (02:35→17:57)
[2022-09-27] MEDS: solu-CORTEF 100MG IV SCH ×3 (02:35→17:57)
[2022-09-27] MEDS: ZOVIRAX IV SCH ×3 (02:35→17:57)
[2022-09-27 06:25] LABS: Absolute Neutrophil Ct (ANC) 9.39 x10^3/uL (1.4-6.9); Basophil (Absolute #) 0.08 x10^3/uL (0-0.4); Eosinophil % 0.4 % (0.00-5.0); Eosinophil (Absolute #) 0.05 x10^3/uL (0-0.5); Hematocrit 41.4 % (42-50); Hemoglobin 13.1 g/dL (12.5-18.0); Mean Cell Volume 86.1 fL (78-100); Mean Corpuscular Hemoglobin 27.2 pg (26-32); Mean Corpuscular Hgb Concent. 31.6 g/dL (32-36); Mean Platelet Volume 10.6 fL (7.5-11.0); Monocyte (Absolute #) 0.76 x10^3/uL (0.0-1.3); Monocytes % 5.8 % (0.0-12.0); Neutrophil % 72.3 % (36.0-66.0); Platelet Count 477 x10^3/uL (150-450); Red Blood Count 4.81 x10^6/uL (4.1-5.6); Red Cell Distribution Width 15.9 % (11.5-14.0)
[2022-09-27] MEDS: HYDROMORPHONE 30 MG/30 ML-NS IV PRN (06:32)
[2022-09-27 06:42] LABS: ANION GAP 9.6 MEQ/L (5-15); BLOOD UREA NITROGEN 12 mg/dL (9-20); CHLORIDE 103 mmol/L (98-107); Calcium 8.3 mg/dL (8.4-10.2); Carbon Dioxide 31 mmol/L (22-30); Creatinine 1 0.71 mg/dL (0.66-1.25); EST GLOMERULAR FILTRATION RATE > 60.0 ML/MIN; Glucose 157 mg/dL (74-106); Potassium 4.4 mmol/L (3.5-5.1); SODIUM 139 mmol/L (137-145)
[2022-09-27] MEDS: HUMALOG SQ PRN ×4 (08:07→21:11)
[2022-09-27] MEDS: Sodium Chloride 0.9% 1000 ML 1,000 ML IV SCH ×2 (10:47→22:42)
[2022-09-27] MEDS: MINERAL OIL PO SCH ×3 (10:48→21:12)
[2022-09-27] MEDS: ECOTRIN 81 MG PO SCH (10:48)
[2022-09-27] MEDS: Cymbalta 30 MG Capsule PO SCH ×2 (10:48→21:11)
[2022-09-27] MEDS: Protonix 20MG Tablet PO SCH (21:11)
[2022-09-27] MEDS: Zocor 10MG PO SCH (21:11)
[2022-09-27] MEDS: Vasotec 10 MG PO SCH (21:11)
[2022-09-28] MEDS: MSIR 15 MG PO SCH ×4 (00:04→17:26)
[2022-09-28] MEDS: HYDROMORPHONE 30 MG/30 ML-NS IV PRN ×2 (00:05→18:28)
[2022-09-28] MEDS: ZOVIRAX IV SCH ×3 (02:32→17:26)
[2022-09-28] MEDS: SODIUM CHLORIDE MINI IV SCH ×3 (02:32→17:26)
[2022-09-28] MEDS: solu-CORTEF 100MG IV SCH ×3 (02:33→17:26)
[2022-09-28] MEDS: Sterile H2O 10 ml IJ SCH ×3 (02:33→17:31)
[2022-09-28] MEDS: Sodium Chloride 0.9% 1000 ML 1,000 ML IV SCH ×2 (09:50→21:25)
[2022-09-28] MEDS: Cymbalta 30 MG Capsule PO SCH ×2 (09:51→21:26)
[2022-09-28] MEDS: ECOTRIN 81 MG PO SCH (09:51)
[2022-09-28] MEDS: MINERAL OIL PO SCH ×3 (09:52→21:26)
[2022-09-28] MEDS: HUMALOG SQ PRN ×2 (09:56→21:26)
[2022-09-28] MEDS: Protonix 20MG Tablet PO SCH (21:26)
[2022-09-28] MEDS: Vasotec 10 MG PO SCH (21:26)
[2022-09-28] MEDS: Zocor 10MG PO SCH (21:26)
[2022-09-29] MEDS: MSIR 15 MG PO SCH ×3 (00:21→11:56)
[2022-09-29] MEDS: solu-CORTEF 100MG IV SCH ×2 (02:59→07:57)
[2022-09-29] MEDS: SODIUM CHLORIDE MINI IV SCH ×2 (02:59→07:46)
[2022-09-29] MEDS: ZOVIRAX IV SCH ×2 (02:59→07:46)
[2022-09-29] MEDS: Sterile H2O 10 ml IJ SCH ×2 (02:59→10:41)
[2022-09-29] MEDS ORDERED: Zovirax INJ IV ONE (07:39)
[2022-09-29] MEDS: Cymbalta 30 MG Capsule PO SCH (07:46)
[2022-09-29] MEDS: ECOTRIN 81 MG PO SCH (07:47)
[2022-09-29] MEDS: MINERAL OIL PO SCH (08:07)
[2022-09-29] MEDS: HYDROMORPHONE 30 MG/30 ML-NS IV PRN (08:12)
--- NOTE | 2022-09-29 08:24 | PCM.DS ---
Discharge Summary Date of Admission: 09/24/22 10:15 Admitting Physician: KIMBERLEE OLMOS Primary Care Provider: ANN ALEXIS Allergies Allergies pregabalin [From Lyrica] Adverse Reaction (Severe, Verified 09/23/22 17:57) Hives SOB hives azithromycin [From Zmax] Adverse Reaction (Mild, Verified 09/23/22 17:57) vomiting Hospital Summary - Hospital Course Hospital Course: patient admitted with severe headache and neck pain, symptoms consistent with typical Mollaret's flare, improved with IV steroids, acyclovir and fluids. - Vitals & Intake/Output Vital Signs: Vital Signs Temperature 97.5 F 09/29/22 06:53 Pulse Rate 68 09/29/22 06:53 Respiratory Rate 20 09/29/22 08:12 Blood Pressure 162/93 09/29/22 06:53 O2 Sat by Pulse Oximetry 97 09/29/22 08:12 Intake & Output: Intake & Output 09/26/22 09/27/22 09/28/22 09/29/22 11:59 11:59 11:59 11:59 Intake Total 5272 1720 3380 8310 Output Total 5305 4025 4425 5550 Balance -33 -4025 -3525 2760 Weight 111.2 kg - Lab Result Diagrams: 09/27/22 05:21 09/27/22 05:21 Lab Results-Last 24 Hrs: Lab Results-Last 24 Hours 09/28/22 09/28/22 09/28/22 Range/Units 11:19 16:08 20:28 POC Glucometer 159 H 191 H 311 H (74 to 106) mg/dL 09/29/22 Range/Units 07:08 POC Glucometer 148 H (74 to 106) mg/dL Micro Results-Entire Visit: Accuchecks Date 09/29/22 Date 09/28/22 Date 09/28/22 Date 09/28/22 Time 07:11 Time 20:45 Time 16:15 Time 11:19 Discharge Exam General Appearance: no apparent distress, obese Neurologic Exam: alert, oriented x 3 Respiratory Exam: normal breath sounds Cardiovascular Exam: regular rate/rhythm, normal heart sounds Gastrointestinal/Abdomen Exam: soft, No tenderness, No mass Final Diagnosis/Problem List - Final Discharge Diagnosis/Problem (1) 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: Acute Code(s): G03.2 - BENIGN RECURRENT MENINGITI S [MOLLARET] (2) Cephalgia Current Visit: No Status: Acute Onset Date: ~11/01/18 Code(s): R51 - HEADACHE * DO NOT USE * (3) Type 2 diabetes mellitus Current Visit: No Status: Chronic - Discharge Disposition: Home, Self-Care Condition: Stable Prescriptions: New Acyclovir 800 mg [Acyclovir] 800 mg PO TID #21 tablet Prednisone 20 mg [Deltasone 20 mg] 20 mg PO UD #18 tablet Continue Enalapril Maleate 10 mg [Vasotec 10 MG] 20 mg PO HS Multivitamin [Multi-Vitamin Daily] 1 each PO DAILY Aspirin 81 mg PO DAILY Testosterone Cypionate 1 ml IM UD Duloxetine HCl [Cymbalta] 60 mg PO BID Metformin HCl 500 mg [Glucophage 500 MG] 1,000 mg PO BIDWM Atorvastatin Calcium [Lipitor] 10 mg PO HS Morphine Sulfate Ir 15 mg [Msir 15 mg] 15 mg PO Q6H Omeprazole 20 mg PO HS Follow up with: ANN ALEXIS MD [Primary Care Provider] -
[2022-09-29] MEDS: Sodium Chloride 0.9% 1000 ML 1,000 ML IV SCH (09:28)
[2022-09-29 11:17] VITALS: BP 141/65; PULSE 66; O2SAT 95
[2022-09-29] MEDS: HUMALOG SQ PRN (11:56)
== END 2022-09-29 13:05 | disposition home or self-care (01) | DRG 76 ==
LOC: ED 17:24 → MED SURG 19:35 → OBSVTOIN 09-24 10:15 → MED SURG 09-26 09:23
PROVIDERS: ADMIT Family Medicine; ATTEND Family Medicine
DX: G03.2 Benign recurrent meningitis [Mollaret] (principal); I10 Essential (primary) hypertension; E11.9 Type 2 diabetes mellitus without complications; Z79.899 Other long term (current) drug therapy; Z20.828 Contact with and (suspected) exposure to other viral communicable diseases
CPT/HCPCS: 0241U; 36000; 36415; 80048; 80053; 82947; 85025; 93268; 94762; 96365; 96374; 96375; 99285; G0378; J0133; J1170; J1720; J1817; J2405; A9270-GY

== ENCOUNTER 2022-10-16 15:38 | Emergency (ER) | payer BC ==
[2022-10-16] MEDS ORDERED: NORCO 5/325 MG PO ONE (16:16)
[2022-10-16] MEDS ORDERED: NORCO 5/325 MG ONE (16:18)
--- NOTE | 2022-10-16 16:38 | XRAY ---
Indication: Puncture wound. Comparison: None 3 portable views left hand negative for radiopaque foreign body. No bony, articular, or soft tissue abnormalities.
[2022-10-16 16:44] VITALS: BP 130/92; PULSE 84; O2SAT 98
--- NOTE | 2022-10-16 16:50 | ERPHSYRPT ---
- History of Present Illness Time Seen by Provider: 10/16/22 15:43 Source: patient Exam Limitations: no limitations Patient Subjective Stated Complaint: Pt states "I was hanging a metal [place] and it fell and when I went to catch it, one of the metal wings punctured my hand" Triage Nursing Assessment: Pt presented alert and oriented X 3, skin pwd. Pt ambulates with an upright steady gait able to speak in clear full sentences pt has puncture wounds between second and third digit of right hand, minimal bleeding noted. Physician History: 52 years old up-to-date with tetanus presented in the ER after he tried to catch a metal [place] which she was trying to hang and fell and the sharp [place] hit his right hand webspace between index and third digit. There was bleeding initially but stopped with applying pressure. No difficulty movements of second and third digit. Occurred: just prior to arrival Method of Injury: direct blow Quality: sharpness Severity of Pain-Max: moderate Severity of Pain-Current: moderate Extremities Pain Location: other: right (Webspace between second and third digit) Modifying Factors: Improves With: immobilization. Worsens With: movement Associated Symptoms: none Allergies/Adverse Reactions: pregabalin [From Lyrica] Adverse Reaction (Severe, Verified 09/23/22 17:57) Hives SOB hives azithromycin [From Zmax] Adverse Reaction (Mild, Verified 09/23/22 17:57) vomiting Home Medications: Aspirin 81 mg PO DAILY 01/24/14 [History] Enalapril Maleate 10 mg [Vasotec 10 MG] 20 mg PO HS 01/24/14 [History] Multivitamin [Multi-Vitamin Daily] 1 each PO DAILY 01/24/14 [History] Testosterone Cypionate 1 ml IM UD 10/09/14 [History] Duloxetine HCl [Cymbalta] 60 mg PO BID 04/23/15 [History] Metformin HCl 500 mg [Glucophage 500 MG] 1,000 mg PO BIDWM 04/20/20 [History] Atorvastatin Calcium [Lipitor] 10 mg PO HS 01/06/22 [History] Morphine Sulfate Ir 15 mg [Msir 15 mg] 15 mg PO Q6H 02/07/22 [History] Omeprazole 20 mg PO HS 07/01/22 [History] Hx Tetanus, Diphtheria Vaccination/Date Given: Yes (february 2016) Hx Influenza Vaccination/Date Given: No (Doesn't get one) Hx Pneumococcal Vaccination/Date Given: Yes Immunizations Up to Date: Yes Travel Risk - International Travel Have you traveled outside of the country in past 3 weeks: No - Coronavirus Screening Are you exhibiting any of the following symptoms?: No Close contact with a COVID-19 positive Pt in past 14-21 Days: No - Vaccine Status Have you recieved a Covid-19 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 - Review of Systems Constitutional: No Symptoms Ears, Nose, & Throat: No Symptoms Respiratory: No Symptoms Cardiac: No Symptoms Abdominal/Gastrointestinal: No Symptoms Musculoskeletal: Injury Skin: No Symptoms Neurological: No Symptoms Endocrine: No Symptoms Hematologic/Lymphatic: No Symptoms Immunological/Allergic: No Symptoms - Past Medical History Pertinent Past Medical History: Yes Neurological History: Other ENT History: No Pertinent History Cardiac History: Hypertension Respiratory History: No Pertinent History, Sleep Apnea Endocrine Medical History: No Pertinent History Musculoskeletal History: No Pertinent History GI Medical History: GERD, Other History: No Pertinent History Psycho-Social History: Depression Male Reproductive Disorders: No Pertinent History Other Medical History: Mollaret's, spleen removed - Past Surgical History Past Surgical History: Yes Neuro Surgical History: No Pertinent History Cardiac: No Pertinent History Respiratory: No Pertinent History Gastrointestinal: Appendectomy, Other Genitourinary: No Pertinent History Musculoskeletal: No Pertinent History Male Surgical History: Vasectomy Other Surgical History: splenectomy, 2 nasal surgeries - Social History Smoking Status: Never smoker Exposure to second hand smoke: No Alcohol Use: None Drug Use: none Patient Lives Alone: No Significant Family History: no pertinent family hx - Nursing Vital Signs Nursing Vital Signs: Initial Vital Signs Temperature 99.4 F 10/16/22 15:52 Pulse Rate 95 H 10/16/22 15:52 Respiratory Rate 20 10/16/22 15:52 Blood Pressure 134/94 10/16/22 15:52 O2 Sat by Pulse Oximetry 97 10/16/22 15:52 Pain Scale Pain Intensity 0 - Physical Exam General Appearance: no apparent distress, alert Eyes, Ears, Nose, Throat Exam: normal ENT inspection Cardiovascular/Respiratory Exam: normal breath sounds, regular rate/rhythm Back Exam: normal range of motion Wrist Exam: normal inspection, non-tender, no evidence of injury, normal ROM Hand Exam: laceration (0.25 cm straight laceration between second and third digit webspace right hand. No active spurting. Intact range of motion of second and third digit. Intact distal neurovascular.), soft tissue tenderness Neuro/Tendon Exam: normal sensation, normal motor functions, normal tendon functions Mental Status Exam: alert, oriented x 3, cooperative Skin Exam: normal color SpO2 Interpretation: normal SpO2: 98 O2 Delivery: Room Air Procedures - Laceration/Wound Repair Right Hand Time of Procedure: 16:48 Wound Location: Right Wound Length (cm): 0.25 Wound's Depth, Shape: into muscle Wound Explored: clean Irrigated: Yes Hibiclens Prep: Yes Anesthesia: 1% Lidocaine Volume Anesthetic (ccs): 3 Wound Repaired With: sutures Suture Size/Type: 4-0, nylon Number of Sutures: 1 Layer Closure?: No Sterile Dressing Applied?: Yes Splint Applied?: No Ordered Tests: Active Orders 24 hr Category Date Time Status HAND (MINIMUM 3 VIEWS) Stat Exams 10/16/22 16:32 Completed Medication Summary Discontinued Medications Generic Name Dose Route Start Last Admin Trade Name [place] PRN Reason Stop Dose Admin Hydrocodone Bitart/Acetaminophen 1 tab 10/16/22 16:16 10/16/22 16:19 Hydrocodone/Apap 5/325 1 Tab Tablet PO 10/16/22 16:17 1 tab STAT ONE Administration Hydrocodone Bitart/Acetaminophen Confirm 10/16/22 16:18 Hydrocodone/Apap 5/325 1 Tab Tablet Administered 10/16/22 16:19 Dose 1 tab .ROUTE .STK-MED ONE - Progress Progress: improved Progress Note: 10/16/22 16:49 Given oral pain medication, x-rays negative for foreign body or acute bony abnormality. Laceration is repaired. Lebron taping done. Recommended outpatient follow-up. Discussed signs symptoms of infection needing return to ER which he seems understanding. Stable for discharge Counseled pt/family regarding: diagnosis, need for follow-up, rad results - Departure Departure Disposition: Home Clinical Impression: Hand laceration Condition: Stable Critical Care Time: No Referrals: ANN ALEXIS MD [Primary Care Provider] - Follow Up with PCP/3 days Instructions: Laceration Repair With Stitches (DC) Additional Instructions: Take pain medication which you have at home as needed. Keep it elevated. Keep it clean. Suture removal in 2 weeks. Avoid exertional work with right hand. Return to ER for increasing pain swelling redness, difficulty movements of fingers, fever chills etc.
== END 2022-10-16 16:59 | disposition home or self-care (01) ==
LOC: ED 15:38
DX: S61.411A Laceration without foreign body of right hand, initial encounter (principal); W20.8XXA Other cause of strike by thrown, projected or falling object, initial encounter; M79.641 Pain in right hand; I10 Essential (primary) hypertension; Z79.84 Long term (current) use of oral hypoglycemic drugs; Z79.899 Other long term (current) drug therapy
CPT/HCPCS: 12001; 73130; 99283; A9270-GY

== ENCOUNTER 2022-10-28 12:21 | Inpatient (IN) | payer MEDICARE, BC ==
[2022-10-28] MEDS ORDERED: Hydromorphone 1 mg/ml Injection IV ONE (12:41)
[2022-10-28] MEDS ORDERED: BENADRYL 50 MG/ML IV ONE (12:41)
[2022-10-28] MEDS ORDERED: TYLENOL 325 MG PO ONE (12:41)
[2022-10-28] MEDS ORDERED: Sodium Chloride 0.9% 1000 ML 1,000 ML IV STA (12:41)
[2022-10-28] MEDS ORDERED: solu-MEDROL 125 MG, Sterile H2O 10 ml 2 ML IV ONE ×2 (12:41)
[2022-10-28] MEDS ORDERED: Zovirax INJ*** 500 MG in D5w 100ML Mini Bag 100 ML 100 ML IV ONE (12:43)
[2022-10-28] MEDS ORDERED: Hydromorphone 1 mg/ml Injection ONE (12:58)
[2022-10-28] MEDS ORDERED: TYLENOL 325 MG ONE (12:58)
[2022-10-28] MEDS ORDERED: Sterile H2O 10 ml IJ ONE (12:58)
[2022-10-28] MEDS ORDERED: BENADRYL 50 MG/ML ONE (12:58)
[2022-10-28] MEDS ORDERED: Sodium Chloride 0.9% 1000 ML 1,000 ML ONE (12:59)
[2022-10-28] MEDS ORDERED: solu-MEDROL ONE (12:59)
--- NOTE | 2022-10-28 13:06 | ERPHSYRPT ---
- History of Present Illness Time Seen by Provider: 10/28/22 12:35 Source: patient Exam Limitations: no limitations Patient Subjective Stated Complaint: Pt reports "My neck is hurting bad again from my meningitis stuff. It started yesterday and nothing is helping, I can't take it any more." Triage Nursing Assessment: Pt ambulated to cot with steady upright gait. Alert and oriented x3. No apparent respiratory distress. Pt complains of neck pain and lower back pain going into his hips. Pt reports this is a chronic issue for him, he took 15mg of MS Contin at 1200 and has a pain pump that releases a total of 15.6mg of morphine in a 24 hour time span. Pt reports no new numbness or tingling. Physician History: Patient is a 52-year-old male well-known to the ER who has been diagnosed with Mollaret meningitis. He frequently is admitted for pain control IV fluids steroids and acyclovir. His pain started yesterday with this episode in his neck and spread to everywhere with body aches denies any fever chills or sweats just increased pain. Timing/Duration: yesterday Quality: aching Severity of Pain-Max: moderate Severity of Pain-Current: moderate Recent Head Trauma: no recent headache/trauma Modifying Factors: Improves With: movement Associated Symptoms: numbness in legs/feet, stiff neck, No fever/chills Previous symptoms: same symptoms as today Allergies/Adverse Reactions: pregabalin [From Lyrica] Adverse Reaction (Severe, Verified 09/23/22 17:57) Hives SOB hives azithromycin [From Zmax] Adverse Reaction (Mild, Verified 09/23/22 17:57) vomiting Home Medications: Aspirin 81 mg PO DAILY 01/24/14 [History] Enalapril Maleate 10 mg [Vasotec 10 MG] 20 mg PO HS 01/24/14 [History] Multivitamin [Multi-Vitamin Daily] 1 each PO DAILY 01/24/14 [History] Testosterone Cypionate 1 ml IM UD 10/09/14 [History] Duloxetine HCl [Cymbalta] 60 mg PO BID 04/23/15 [History] Metformin HCl 500 mg [Glucophage 500 MG] 1,000 mg PO BIDWM 04/20/20 [Hi story] Atorvastatin Calcium [Lipitor] 10 mg PO HS 01/06/22 [History] Morphine Sulfate Ir 15 mg [Msir 15 mg] 15 mg PO Q6H 02/07/22 [History] Omeprazole 20 mg PO HS 07/01/22 [History] Hx Tetanus, Diphtheria Vaccination/Date Given: Yes (february 2016) Hx Influenza Vaccination/Date Given: No (Doesn't get one) Hx Pneumococcal Vaccination/Date Given: Yes Travel Risk - International Travel Have you traveled outside of the country in past 3 weeks: No - Coronavirus Screening Are you exhibiting any of the following symptoms?: No Close contact with a COVID-19 positive Pt in past 14-21 Days: No - Vaccine Status Have you recieved a Covid-19 vaccination: Yes 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 - Review of Systems Constitutional: No Fever, No Chills Eyes: No Symptoms Ears, Nose, & Throat: No Symptoms Respiratory: No Cough, No Dyspnea Cardiac: No Chest Pain, No Edema, No Syncope Abdominal/Gastrointestinal: No Abdominal Pain, No Nausea, No Vomiting, No Diarrhea Genitourinary Symptoms: No Dysuria Musculoskeletal: Arthralgias, Myalgias, No Back Pain, No Neck Pain Skin: No Rash Neurological: No Dizziness, No Focal Weakness, No Sensory Changes Psychological: No Symptoms Endocrine: No Symptoms All Other Systems: Reviewed and Negative - Past Medical History Pertinent Past Medical History: Yes Neurological History: Other ENT History: No Pertinent History Cardiac History: Hypertension Respiratory History: No Pertinent History, Sleep Apnea Endocrine Medical History: No Pertinent History Musculoskeletal History: No Pertinent History GI Medical History: GERD, Other History: No Pertinent History Psycho-Social History: Depression Male Reproductive Disorders: No Pertinent History Other Medical History: Mollaret's, spleen removed - Past Surgical History Past Surgical History: Yes Neuro Surgical History: No Pertinent History Cardiac: No Pertinent History Respiratory: No Pertinent History Gastrointestinal: Appendectomy, Other Genitourinary: No Pertinent History Musculoskeletal: No Pertinent History Male Surgical History: Vasectomy Other Surgical History: splenectomy, 2 nasal surgeries - Social History Smoking Status: Never smoker Exposure to second hand smoke: No Alcohol Use: None Drug Use: none Patient Lives Alone: No Significant Family History: no pertinent family hx - Nursing Vital Signs Nursing Vital Signs: Initial Vital Signs Temperature 96.7 F 10/28/22 12:27 Pulse Rate 110 H 10/28/22 12:27 Respiratory Rate 20 10/28/22 12:27 Blood Pressure 151/99 10/28/22 12:27 O2 Sat by Pulse Oximetry 98 10/28/22 12:27 Pain Scale Pain Intensity [Neck] 9 Pain Intensity 9 - Physical Exam General Appearance: mild distress Eye Exam: PERRL/EOMI Ears, Nose, Throat Exam: normal ENT inspection, moist mucous membranes Neck Exam: normal inspection, limited range of motion Respiratory Exam: normal breath sounds, airway intact Cardiovascular Exam: regular rate/rhythm, normal heart sounds Gastrointestinal/Abdominal Exam: soft, No tenderness, No distention Back Exam: normal inspection, normal range of motion Mental Status Exam: alert, oriented x 3, 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: normal speech, PERRL, No facial droop Coordination/Gait Exam: normal cerebellar function Motor/Sensory Exam: no motor deficit, no sensory deficit Skin Exam: normal color, warm, dry SpO2 Interpretation: normal SpO2: 98 O2 Delivery: Room Air - Course Nursing assessment & vital signs reviewed: Yes Ordered Tests: Active Orders 24 hr Category Date Time Status IV Insertion STAT Care 10/28/22 12:41 Active CBC W DIFF Stat Lab 10/28/22 12:50 Results CMP Stat Lab 10/28/22 12:50 Completed Erythrocyte Sedimentation Rate Stat Lab 10/28/22 12:50 Results Lactic Acid Urgent Lab 10/28/22 13:27 Completed UA W/RFX CULTURE Stat Lab 10/28/22 Completed Medication Summary Discontinued Medications Generic Name Dose Route Start Last Admin Trade Name [place] PRN Reason Stop Dose Admin Acetaminophen 650 mg 10/28/22 12:41 10/28/22 13:05 Acetaminophen 325 Mg Tablet PO 10/28/22 12:42 650 mg STAT ONE Administration Acetaminophen Confirm 10/28/22 12:58 Acetaminophen 325 Mg Tablet Administered 10/28/22 12:59 Dose 650 mg .ROUTE .STK-MED ONE Methylprednisolone Sodium 0 mg 10/28/22 12:41 10/28/22 13:06 Succinate 125 mg/ Sterile IV 10/28/22 12:42 125 mg Water 2 ml STAT ONE Administration Diphenhydramine HCl 50 mg 10/28/22 12:41 10/28/22 13:12 Diphenhydramine Hcl 50 Mg/Ml Vial IV 10/28/22 12:42 50 mg STAT ONE Administration Diphenhydramine HCl Confirm 10/28/22 12:58 Diphenhydramine Hcl 50 Mg/Ml Vial Administered 10/28/22 12:59 Dose 50 mg .ROUTE .STK-MED ONE Hydromorphone HCl 1 mg 10/28/22 12:41 10/28/22 13:10 Hydromorphone 1 Mg/1ml Inj 1 Mg/Ml Syringe IV 10/28/22 12:42 1 mg STAT ONE Administration Hydromorphone HCl Confirm 10/28/22 12:58 Hydromorphone 1 Mg/1ml Inj 1 Mg/Ml Syringe Administered 10/28/22 12:59 Dose 1 mg .ROUTE .STK-MED ONE Acyclovir Sodium 500 mg/ 100 mls @ 100 mls/hr 10/28/22 12:43 10/28/22 13:28 Dextrose IV 10/28/22 13:42 Not Given STAT ONE Sodium Chloride 1,000 mls @ 999 mls/hr 10/28/22 12:41 10/28/22 13:03 Sodium Chloride 0.9% 1000 Ml IV 10/28/22 13:41 999 mls/hr .Q1H1M STA Administration Sodium Chloride Confirm 10/28/22 12:59 Sodium Chloride 0.9% 1000 Ml Administered 10/28/22 13:00 Dose 1,000 mls @ ud .ROUTE .STK-MED ONE Acyclovir Sodium 500 mg/ 100 mls @ 100 mls/hr 10/28/22 13:15 10/28/22 13:22 Sodium Chloride IV 10/28/22 14:14 100 mls/hr STAT ONE Administration Methylprednisolone Sodium Succinate Confirm 10/28/22 12:59 Methylprednis Sod Succ 125 Mg/2 Ml Vial Administered 10/28/22 13:00 Dose 125 mg .ROUTE .STK-MED ONE Sterile Water Confirm 10/28/22 12:58 Water For Injection,Sterile 10 Ml Vial Administered 10/28/22 12:59 Dose 10 ml IJ .STK-MED ONE Lab/Rad Data: Laboratory Result Diagrams 10/28/22 12:50 10/28/22 12:50 Laboratory Results 10/28/22 10/28/22 10/28/22 Range/Units Unknown 13:27 13:15 WBC (4.0-10.5) x10^3/uL RBC (4.1-5.6) x10^6/uL Hgb (12.5-18.0) g/dL Hct (42-50) % MCV (78-100) fL MCH (26-32) pg MCHC (32-36) g/dL RDW (11.5-14.0) % Plt Count (150-450) x10^3/uL MPV (7.5-11.0) fL Gran % (36.0-66.0) % Immature Gran % (Auto) (0.00-0.4) % Nucleat RBC Rel Count (0.00-0.1) % Eos # (Auto) (0-0.5) x10^3/uL Immature Gran # (Auto) (0.00-0.03) x10^3u/L Absolute Lymphs (auto) (1.0-4.6) x10^3/uL Absolute Monos (auto) (0.0-1.3) x10^3/uL Absolute Nucleated RBC (0.00-0.01) x10^3u/L Lymphocytes % (24.0-44.0) % Monocytes % (0.0-12.0) % Eosinophils % (0.00-5.0) % Basophils % (0.0-0.4) % Absolute Granulocytes (1.4-6.9) x10^3/uL Basophils # (0-0.4) x10^3/uL ESR Sodium (137-145) mmol/L Potassium (3.5-5.1) mmol/L Chloride (98-107) mmol/L Carbon Dioxide (22-30) mmol/L Anion Gap (5-15) MEQ/L BUN (9-20) mg/dL Creatinine (0.66-1.25) mg/dL Estimated GFR ML/MIN Glucose (74-106) mg/dL Lactic Acid 2.3 H (0.4-2.0) Calcium (8.4-10.2) mg/dL Total Bilirubin (0.2-1.3) mg/dL AST (17-59) U/L ALT (0-50) U/L Alkaline Phosphatase (38-126) U/L Serum Total Protein (6.3-8.2) g/dL Albumin (3.5-5.0) g/dL Urinalys Dipstick Clnc MAIN LAB Urine Color YELLOW (YELLOW) Urine Appearance CLEAR (CLEAR) Urine pH 5.5 (5-6) Ur Specific [place] 1.025 (1.005-1.025) POC Urine Protein Conf NEGATIVE (Negative) Urine Ketones NEGATIVE (NEGATIVE) Urine Nitrite NEGATIVE (NEGATIVE) Urine Bilirubin NEGATIVE (NEGATIVE) Urine Urobilinogen 0.2 (0-1) mg/dL Urine Leukocytes NEGATIVE (NEGATIVE) Urine WBC (Auto) NONE (0-5) /HPF Urine RBC (Auto) NONE (0-2) /HPF U Epithel Cells (Auto) NONE (FEW) /HPF Urine Bacteria (Auto) NONE (NEGATIVE) /HPF Urine RBC NEGATIVE (0-5) Chase/ul Urine Mucus (Auto) SLIGHT A (NEGATIVE) /HPF Ur Culture Indicated? NO Urine Glucose 500 A (NEGATIVE) mg/dL Influenza Type A Ag NEGATIVE (NEGATIVE) Influenza Type B Ag NEGATIVE (NEGATIVE) RSV (PCR) NEGATIVE (Negative) SARS-CoV-2 (PCR) NEGATIVE (NEGATIVE) 10/28/22 10/28/22 Range/Units 12:50 12:50 WBC 8.6 (4.0-10.5) x10^3/uL RBC 5.34 (4.1-5.6) x10^6/uL Hgb 14.4 (12.5-18.0) g/dL Hct 45.9 (42-50) % MCV 86.0 (78-100) fL MCH 27.0 (26-32) pg MCHC 31.4 L (32-36) g/dL RDW 18.1 H (11.5-14.0) % Plt Count 449 (150-450) x10^3/uL MPV 9.8 (7.5-11.0) fL Gran % 55.0 (36.0-66.0) % Immature Gran % (Auto) 0.8 H (0.00-0.4) % Nucleat RBC Rel Count 0.0 (0.00-0.1) % Eos # (Auto) 0.23 (0-0.5) x10^3/uL Immature Gran # (Auto) 0.07 H (0.00-0.03) x10^3u/L Absolute Lymphs (auto) 2.73 (1.0-4.6) x10^3/uL Absolute Monos (auto) 0.77 (0.0-1.3) x10^3/uL Absolute Nucleated RBC 0.00 (0.00-0.01) x10^3u/L Lymphocytes % 31.9 (24.0-44.0) % Monocytes % 9.0 (0.0-12.0) % Eosinophils % 2.7 (0.00-5.0) % Basophils % 0.6 (0.0-0.4) % Absolute Granulocytes 4.71 (1.4-6.9) x10^3/uL Basophils # 0.05 (0-0.4) x10^3/uL ESR Pending Sodium 136 L (137-145) mmol/L Potassium 3.9 (3.5-5.1) mmol/L Chloride 101 (98-107) mmol/L Carbon Dioxide 30 (22-30) mmol/L Anion Gap 9.0 (5-15) MEQ/L BUN 10 (9-20) mg/dL Creatinine 0.81 (0.66-1.25) mg/dL Estimated GFR > 60.0 ML/MIN Glucose 173 H (74-106) mg/dL Lactic Acid (0.4-2.0) Calcium 8.6 (8.4-10.2) mg/dL Total Bilirubin 0.30 (0.2-1.3) mg/dL AST 32 (17-59) U/L ALT 34 (0-50) U/L Alkaline Phosphatase 82 (38-126) U/L Serum Total Protein 7.1 (6.3-8.2) g/dL Albumin 4.1 (3.5-5.0) g/dL Urinalys Dipstick Clnc Urine Color (YELLOW) Urine Appearance (CLEAR) Urine pH (5-6) Ur Specific [place] (1.005-1.025) POC Urine Protein Conf (Negative) Urine Ketones (NEGATIVE) Urine Nitrite (NEGATIVE) Urine Bilirubin (NEGATIVE) Urine Urobilinogen (0-1) mg/dL Urine Leukocytes (NEGATIVE) Urine WBC (Auto) (0-5) /HPF Urine RBC (Auto) (0-2) /HPF U Epithel Cells (Auto) (FEW) /HPF Urine Bacteria (Auto) (NEGATIVE) /HPF Urine RBC (0-5) Chase/ul Urine Mucus (Auto) (NEGATIVE) /HPF Ur Culture Indicated? Urine Glucose (NEGATIVE) mg/dL Influenza Type A Ag (NEGATIVE) Influenza Type B Ag (NEGATIVE) RSV (PCR) (Negative) SARS-CoV-2 (PCR) (NEGATIVE) - Progress Progress: unchanged Air Movement: good Blood Culture(s) Obtained: No Antibiotics given: Yes Discussed with : Yoli Will see patient in: hospital (observation) - Departure Departure Disposition: Observation Clinical Impression: Mollaret's syndrome (benign recurrent meningitis) Condition: Stable Critical Care Time: No Referrals: ANN ALEXIS MD [Primary Care Provider] - Follow up/PCP as directed
[2022-10-28] MEDS ORDERED: SODIUM CHLORIDE MINI IV ONE (13:15)
[2022-10-28] MEDS ORDERED: ZOVIRAX IV ONE (13:15)
[2022-10-28 13:27] LABS: Absolute Neutrophil Ct (ANC) 4.71 x10^3/uL (1.4-6.9); Basophil (Absolute #) 0.05 x10^3/uL (0-0.4); Eosinophil % 2.7 % (0.00-5.0); Eosinophil (Absolute #) 0.23 x10^3/uL (0-0.5); Hematocrit 45.9 % (42-50); Hemoglobin 14.4 g/dL (12.5-18.0); Lymphocyte (Absolute #) 2.73 x10^3/uL (1.0-4.6); Lymphocytes % 31.9 % (24.0-44.0); Mean Corpuscular Hgb Concent. 31.4 g/dL (32-36); Mean Platelet Volume 9.8 fL (7.5-11.0); Monocyte (Absolute #) 0.77 x10^3/uL (0.0-1.3); Platelet Count 449 x10^3/uL (150-450); Red Blood Count 5.34 x10^6/uL (4.1-5.6); Red Cell Distribution Width 18.1 % (11.5-14.0); White Blood Count 8.6 x10^3/uL (4.0-10.5)
[2022-10-28 13:50] LABS: Appearance CLEAR (CLEAR); Bilirubin NEGATIVE (NEGATIVE); Dipstick done @ ? MAIN LAB; Glucose 500 mg/dL (NEGATIVE); Ketones NEGATIVE (NEGATIVE); Mucus SLIGHT /HPF (NEGATIVE); Nitrite NEGATIVE (NEGATIVE); Ph 5.5 (5-6); Protein,Urine Dip NEGATIVE (Negative); RBC NEGATIVE Ery/ul (0-5); Specific Gravity 1.025 (1.005-1.025); Urobilinogen 0.2 mg/dL (0-1)
[2022-10-28 13:58] LABS: ALBUMIN 4.1 g/dL (3.5-5.0); ALKALINE PHOSPHATASE 82 U/L (38-126); BLOOD UREA NITROGEN 10 mg/dL (9-20); CHLORIDE 101 mmol/L (98-107); Calcium 8.6 mg/dL (8.4-10.2); Carbon Dioxide 30 mmol/L (22-30); Creatinine 1 0.81 mg/dL (0.66-1.25); EST GLOMERULAR FILTRATION RATE > 60.0 ML/MIN; Glucose 173 mg/dL (74-106); Potassium 3.9 mmol/L (3.5-5.1); SGOT/AST 32 U/L (17-59); SGPT/ALT 34 U/L (0-50); SODIUM 136 mmol/L (137-145); Total Protein 7.1 g/dL (6.3-8.2)
[2022-10-28 14:00] LABS: Urine Cultured Indicated? NO
[2022-10-28 14:02] LABS: INFLUENZA A NEGATIVE (NEGATIVE); INFLUENZA B NEGATIVE (NEGATIVE); RESPIRATORY SYNCTIAL VIRUS NEGATIVE (Negative); SARS-CoV-2 Xpert Express NEGATIVE (NEGATIVE)
[2022-10-28] MEDS ORDERED: PHARMACY DOSING REQUIRED: DILAUDID PCA IV STA (14:33)
[2022-10-28] MEDS: DILAUDID 1 MG/1ML PCA SYRINGE IV PRN (15:11)
[2022-10-28 16:53] LABS: Erythrocyte Sedimentation Rate 47 mm/hr (0-15)
[2022-10-28] MEDS ORDERED: TESTOSTERONE CYPIONATE 100 MG/ML IM SCH (17:30)
[2022-10-28] MEDS ORDERED: MEDICATION INTERVENTION MC SCH (18:00)
[2022-10-28] MEDS: Glucophage 500 MG PO SCH (18:26)
[2022-10-28] MEDS: MSIR 15 MG PO SCH ×2 (18:27→23:38)
[2022-10-28] MEDS ORDERED: ENALAPRIL MALEATE 10 MG PO SCH (22:00)
[2022-10-28] MEDS ORDERED: NON-FORMULARY ITEM (Omeprazole [Omeprazole] 20 MG Capsule.Dr) PO SCH (22:00)
[2022-10-28] MEDS ORDERED: NON-FORMULARY ITEM (Duloxetine Hcl [Cymbalta] 60 MG Capsule.Dr) PO SCH (22:00)
[2022-10-28] MEDS ORDERED: NON-FORMULARY ITEM (Atorvastatin Calcium 10 MG Tablet) PO SCH (22:00)
[2022-10-28] MEDS: Zocor 10MG PO SCH (22:58)
[2022-10-28] MEDS: Cymbalta 30 MG Capsule PO SCH (22:58)
[2022-10-28] MEDS: Protonix 20MG Tablet PO SCH (22:59)
[2022-10-28] MEDS: solu-MEDROL 125 MG, Sterile H2O 10 ml 2 ML IV SCH ×2 (22:59)
[2022-10-28] MEDS: Vasotec 10 MG PO SCH (22:59)
[2022-10-28] MEDS: SODIUM CHLORIDE MINI IV SCH (23:37)
[2022-10-28] MEDS: ZOVIRAX IV SCH (23:37)
[2022-10-29] MEDS: DILAUDID 1 MG/1ML PCA SYRINGE IV PRN ×2 (04:30→19:55)
[2022-10-29] MEDS: Sodium Chloride 0.9% 1000 ML 1,000 ML IV SCH ×2 (04:38→17:45)
[2022-10-29 05:04] LABS: Basophil (Absolute #) 0.02 x10^3/uL (0-0.4); Eosinophil (Absolute #) 0 x10^3/uL (0-0.5); Hematocrit 44.2 % (42-50); Hemoglobin 14.1 g/dL (12.5-18.0); Lymphocyte (Absolute #) 1.55 x10^3/uL (1.0-4.6); Lymphocytes % 12.2 % (24.0-44.0); Mean Corpuscular Hemoglobin 28.1 pg (26-32); Mean Corpuscular Hgb Concent. 31.9 g/dL (32-36); Mean Platelet Volume 9.8 fL (7.5-11.0); Monocyte (Absolute #) 0.11 x10^3/uL (0.0-1.3); Monocytes % 0.9 % (0.0-12.0); Platelet Count 432 x10^3/uL (150-450); Red Blood Count 5.02 x10^6/uL (4.1-5.6); Red Cell Distribution Width 18.6 % (11.5-14.0); White Blood Count 12.7 x10^3/uL (4.0-10.5)
[2022-10-29 05:16] LABS: ALBUMIN 4.3 g/dL (3.5-5.0); ALKALINE PHOSPHATASE 90 U/L (38-126); BLOOD UREA NITROGEN 11 mg/dL (9-20); CHLORIDE 101 mmol/L (98-107); Calcium 8.8 mg/dL (8.4-10.2); Carbon Dioxide 24 mmol/L (22-30); Creatinine 1 0.73 mg/dL (0.66-1.25); EST GLOMERULAR FILTRATION RATE > 60.0 ML/MIN; Glucose 255 mg/dL (74-106); Potassium 4.3 mmol/L (3.5-5.1); SGOT/AST 31 U/L (17-59); SGPT/ALT 36 U/L (0-50); SODIUM 135 mmol/L (137-145); Total Protein 7.5 g/dL (6.3-8.2)
[2022-10-29] MEDS: solu-MEDROL 125 MG, Sterile H2O 10 ml 2 ML IV SCH ×2 (06:41)
[2022-10-29] MEDS: SODIUM CHLORIDE MINI IV SCH ×3 (06:46→21:36)
[2022-10-29] MEDS: ZOVIRAX IV SCH ×3 (06:46→21:36)
[2022-10-29] MEDS: MSIR 15 MG PO SCH ×3 (06:47→17:33)
--- NOTE | 2022-10-29 08:06 | PCM.HP ---
History of Present Illness - Chief Complaint Chief Complaint: pain History of Present Illness: is a 52 year old male with chronic recurrent aseptic meningitis, he was admitted with head and neck pain per his usual flare. this morning he is complaining of no recliner in his room and doesn't like the air mattress on his bed. he has no fever, no numbness, tingling, weakness or paresthesias. - Review of Systems Constitutional: No Symptoms Respiratory: No Cough, No Short Of Breath Cardiac: No Chest Pain, No Edema, No Syncope Abdominal/Gastrointestinal: No Abdominal Pain, No Nausea, No Vomiting, No Diarrhea Musculoskeletal: Neck Pain Neurological: Headache All Other Systems: Reviewed and Negative Medications & Allergies Home Medications: Home Medication List Aspirin 81 mg PO DAILY 01/24/14 [History Confirmed 10/28/22] Enalapril Maleate 10 mg [Vasotec 10 MG] 20 mg PO HS 01/24/14 [History Confirmed 10/28/22] Multivitamin [Multi-Vitamin Daily] 1 each PO DAILY 01/24/14 [History Confirmed 10/28/22] Testosterone Cypionate 1 ml IM UD 10/09/14 [History Confirmed 10/28/22] Duloxetine HCl [Cymbalta] 60 mg PO BID 04/23/15 [History Confirmed 10/28/22] Metformin HCl 500 mg [Glucophage 500 MG] 1,000 mg PO BIDWM 04/20/20 [History Confirmed 10/28/22] Atorvastatin Calcium [Lipitor] 10 mg PO HS 01/06/22 [History Confirmed 10/28/22] Morphine Sulfate Ir 15 mg [Msir 15 mg] 15 mg PO Q6H 02/07/22 [History Confirmed 10/28/22] Omeprazole 20 mg PO HS 07/01/22 [History Confirmed 10/28/22] Allergies/Adverse Reactions: Allergies Allergy/AdvReac Type Severity Reaction Status Date / Time pregabalin [From Lyrica] AdvReac Severe Hives Verified 10/28/22 16:09 azithromycin [From Zmax] AdvReac Mild Verified 10/28/22 16:09 - Past Medical History Past Medical History: Yes Neurological History: Other ENT History: No Pertinent History Cardiac History: Hypertension Respiratory History: No Pertinent History, Sleep Apnea Endocrine Medical History: No Pertinent History Musculoskelatal History: No Pertinent History GI Medical History: GERD, Other History: No Pertinent History Pyscho-Social History: Depression Male Reproductive Disorders: No Pertinent History Comment: Mollaret's, spleen removed - Past Surgical History Past Surgical History: Yes Neuro Surgical History: No Pertinent History Cardiac History: No Pertinent History Respiratory Surgery: No Pertinent History GI Surgical History: Appendectomy, Other Genitourinary Surgical Hx: No Pertinent History Musculskeletal Surgical Hx: No Pertinent History Male Surgical History: Vasectomy Other Surgical History: splenectomy, 2 nasal surgeries - Social History Smoking Status: Never smoker Exposure to second hand smoke: No Alcohol: None Drug Use: none Significant Family History: no pertinent family hx - Physical Exam Vital Signs: Vital Signs - 24 hr Temp Pulse Resp BP Pulse Ox 10/29/22 06:00 18 98 10/29/22 05:51 98 10/29/22 04:30 18 98 10/29/22 04:00 96.9 F 101 H 18 171/73 98 10/29/22 02:00 20 97 10/29/22 00:00 95.9 F 94 H 20 145/71 97 10/28/22 22:00 18 98 10/28/22 20:00 97.5 F 106 H 18 123/71 96 10/28/22 19:45 96 10/28/22 18:00 18 95 10/28/22 15:53 98.2 F 92 H 128/80 96 10/28/22 15:51 96 10/28/22 15:31 98.2 F 92 H 18 128/80 94 L 10/28/22 14:32 98 10/28/22 13:59 93 H 131/96 95 10/28/22 12:27 96.7 F 110 H 20 151/99 98 General Appearance: no apparent distress, alert Neurologic Exam: alert, oriented x 3 Respiratory Exam: normal breath sounds, lungs clear, No respiratory distress Cardiovascular Exam: regular rate/rhythm, normal heart sounds, normal peripheral pulses Extremity Exam: normal inspection, normal range of motion, pelvis stable Skin Exam: normal color, warm, dry, No rash Results - Labs Lab/Micro Results: Lab Results-Last 24 Hours 10/28/22 10/28/22 10/28/22 Range/Units 12:50 12:50 13:15 WBC 8.6 (4.0-10.5) x10^3/uL RBC 5.34 (4.1-5.6) x10^6/uL Hgb 14.4 (12.5-18.0) g/dL Hct 45.9 (42-50) % MCV 86.0 (78-100) fL MCH 27.0 (26-32) pg MCHC 31.4 L (32-36) g/dL RDW 18.1 H (11.5-14.0) % Plt Count 449 (150-450) x10^3/uL MPV 9.8 (7.5-11.0) fL Gran % 55.0 (36.0-66.0) % Immature Gran % (Auto) 0.8 H (0.00-0.4) % Nucleat RBC Rel Count 0.0 (0.00-0.1) % Eos # (Auto) 0.23 (0-0.5) x10^3/uL Immature Gran # (Auto) 0.07 H (0.00-0.03) x10^3u/L Absolute Lymphs (auto) 2.73 (1.0-4.6) x10^3/uL Absolute Monos (auto) 0.77 (0.0-1.3) x10^3/uL Absolute Nucleated RBC 0.00 (0.00-0.01) x10^3u/L Lymphocytes % 31.9 (24.0-44.0) % Monocytes % 9.0 (0.0-12.0) % Eosinophils % 2.7 (0.00-5.0) % Basophils % 0.6 (0.0-0.4) % Absolute Granulocytes 4.71 (1.4-6.9) x10^3/uL Basophils # 0.05 (0-0.4) x10^3/uL ESR 47 H (0-15) mm/hr Sodium 136 L (137-145) mmol/L Potassium 3.9 (3.5-5.1) mmol/L Chloride 101 (98-107) mmol/L Carbon Dioxide 30 (22-30) mmol/L Anion Gap 9.0 (5-15) MEQ/L BUN 10 (9-20) mg/dL Creatinine 0.81 (0.66-1.25) mg/dL Estimated GFR > 60.0 ML/MIN Glucose 173 H (74-106) mg/dL POC Glucometer (74 to 106) mg/dL Hemoglobin A1c (4.5-6.0) % Lactic Acid (0.4-2.0) Calcium 8.6 (8.4-10.2) mg/dL Total Bilirubin 0.30 (0.2-1.3) mg/dL AST 32 (17-59) U/L ALT 34 (0-50) U/L Alkaline Phosphatase 82 (38-126) U/L Serum Total Protein 7.1 (6.3-8.2) g/dL Albumin 4.1 (3.5-5.0) g/dL Urinalys Dipstick Clnc Urine Color (YELLOW) Urine Appearance (CLEAR) Urine pH (5-6) Ur Specific [place] (1.005-1.025) POC Urine Protein Conf (Negative) Urine Ketones (NEGATIVE) Urine Nitrite (NEGATIVE) Urine Bilirubin (NEGATIVE) Urine Urobilinogen (0-1) mg/dL Urine Leukocytes (NEGATIVE) Urine WBC (Auto) (0-5) /HPF Urine RBC (Auto) (0-2) /HPF U Epithel Cells (Auto) (FEW) /HPF Urine Bacteria (Auto) (NEGATIVE) /HPF Urine RBC (0-5) Chase/ul Urine Mucus (Auto) (NEGATIVE) /HPF Ur Culture Indicated? Urine Glucose (NEGATIVE) mg/dL Influenza Type A Ag NEGATIVE (NEGATIVE) Influenza Type B Ag NEGATIVE (NEGATIVE) RSV (PCR) NEGATIVE (Negative) SARS-CoV-2 (PCR) NEGATIVE (NEGATIVE) 10/28/22 10/28/22 10/28/22 Range/Units 13:27 15:30 16:32 WBC (4.0-10.5) x10^3/uL RBC (4.1-5.6) x10^6/uL Hgb (12.5-18.0) g/dL Hct (42-50) % MCV (78-100) fL MCH (26-32) pg MCHC (32-36) g/dL RDW (11.5-14.0) % Plt Count (150-450) x10^3/uL MPV (7.5-11.0) fL Gran % (36.0-66.0) % Immature Gran % (Auto) (0.00-0.4) % Nucleat RBC Rel Count (0.00-0.1) % Eos # (Auto) (0-0.5) x10^3/uL Immature Gran # (Auto) (0.00-0.03) x10^3u/L Absolute Lymphs (auto) (1.0-4.6) x10^3/uL Absolute Monos (auto) (0.0-1.3) x10^3/uL Absolute Nucleated RBC (0.00-0.01) x10^3u/L Lymphocytes % (24.0-44.0) % Monocytes % (0.0-12.0) % Eosinophils % (0.00-5.0) % Basophils % (0.0-0.4) % Absolute Granulocytes (1.4-6.9) x10^3/uL Basophils # (0-0.4) x10^3/uL ESR (0-15) mm/hr Sodium (137-145) mmol/L Potassium (3.5-5.1) mmol/L Chloride (98-107) mmol/L Carbon Dioxide (22-30) mmol/L Anion Gap (5-15) MEQ/L BUN (9-20) mg/dL Creatinine (0.66-1.25) mg/dL Estimated GFR ML/MIN Glucose (74-106) mg/dL POC Glucometer 147 H (74 to 106) mg/dL Hemoglobin A1c 7.30 H (4.5-6.0) % Lactic Acid 2.3 H (0.4-2.0) Calcium (8.4-10.2) mg/dL Total Bilirubin (0.2-1.3) mg/dL AST (17-59) U/L ALT (0-50) U/L Alkaline Phosphatase (38-126) U/L Serum Total Protein (6.3-8.2) g/dL Albumin (3.5-5.0) g/dL Urinalys Dipstick Clnc Urine Color (YELLOW) Urine Appearance (CLEAR) Urine pH (5-6) Ur Specific [place] (1.005-1.025) POC Urine Protein Conf (Negative) Urine Ketones (NEGATIVE) Urine Nitrite (NEGATIVE) Urine Bilirubin (NEGATIVE) Urine Urobilinogen (0-1) mg/dL Urine Leukocytes (NEGATIVE) Urine WBC (Auto) (0-5) /HPF Urine RBC (Auto) (0-2) /HPF U Epithel Cells (Auto) (FEW) /HPF Urine Bacteria (Auto) (NEGATIVE) /HPF Urine RBC (0-5) Chase/ul Urine Mucus (Auto) (NEGATIVE) /HPF Ur Culture Indicated? Urine Glucose (NEGATIVE) mg/dL Influenza Type A Ag (NEGATIVE) Influenza Type B Ag (NEGATIVE) RSV (PCR) (Negative) SARS-CoV-2 (PCR) (NEGATIVE) 10/28/22 10/28/22 10/29/22 Range/Units 20:26 Unknown 04:45 WBC 12.7 H (4.0-10.5) x10^3/uL RBC 5.02 (4.1-5.6) x10^6/uL Hgb 14.1 (12.5-18.0) g/dL Hct 44.2 (42-50) % MCV 88.0 (78-100) fL MCH 28.1 (26-32) pg MCHC 31.9 L (32-36) g/dL RDW 18.6 H (11.5-14.0) % Plt Count 432 (150-450) x10^3/uL MPV 9.8 (7.5-11.0) fL Gran % 86.0 H (36.0-66.0) % Immature Gran % (Auto) 0.7 H (0.00-0.4) % Nucleat RBC Rel Count 0.0 (0.00-0.1) % Eos # (Auto) 0 (0-0.5) x10^3/uL Immature Gran # (Auto) 0.09 H (0.00-0.03) x10^3u/L Absolute Lymphs (auto) 1.55 (1.0-4.6) x10^3/uL Absolute Monos (auto) 0.11 (0.0-1.3) x10^3/uL Absolute Nucleated RBC 0.00 (0.00-0.01) x10^3u/L Lymphocytes % 12.2 L (24.0-44.0) % Monocytes % 0.9 (0.0-12.0) % Eosinophils % 0.0 (0.00-5.0) % Basophils % 0.2 (0.0-0.4) % Absolute Granulocytes 10.90 H (1.4-6.9) x10^3/uL Basophils # 0.02 (0-0.4) x10^3/uL ESR (0-15) mm/hr Sodium (137-145) mmol/L Potassium (3.5-5.1) mmol/L Chloride (98-107) mmol/L Carbon Dioxide (22-30) mmol/L Anion Gap (5-15) MEQ/L BUN (9-20) mg/dL Creatinine (0.66-1.25) mg/dL Estimated GFR ML/MIN Glucose (74-106) mg/dL POC Glucometer 357 H (74 to 106) mg/dL Hemoglobin A1c (4.5-6.0) % Lactic Acid (0.4-2.0) Calcium (8.4-10.2) mg/dL Total Bilirubin (0.2-1.3) mg/dL AST (17-59) U/L ALT (0-50) U/L Alkaline Phosphatase (38-126) U/L Serum Total Protein (6.3-8.2) g/dL Albumin (3.5-5.0) g/dL Urinalys Dipstick Clnc MAIN LAB Urine Color YELLOW (YELLOW) Urine Appearance CLEAR (CLEAR) Urine pH 5.5 (5-6) Ur Specific [place] 1.025 (1.005-1.025) POC Urine Protein Conf NEGATIVE (Negative) Urine Ketones NEGATIVE (NEGATIVE) Urine Nitrite NEGATIVE (NEGATIVE) Urine Bilirubin NEGATIVE (NEGATIVE) Urine Urobilinogen 0.2 (0-1) mg/dL Urine Leukocytes NEGATIVE (NEGATIVE) Urine WBC (Auto) NONE (0-5) /HPF Urine RBC (Auto) NONE (0-2) /HPF U Epithel Cells (Auto) NONE (FEW) /HPF Urine Bacteria (Auto) NONE (NEGATIVE) /HPF Urine RBC NEGATIVE (0-5) Chase/ul Urine Mucus (Auto) SLIGHT A (NEGATIVE) /HPF Ur Culture Indicated? NO Urine Glucose 500 A (NEGATIVE) mg/dL Influenza Type A Ag (NEGATIVE) Influenza Type B Ag (NEGATIVE) RSV (PCR) (Negative) SARS-CoV-2 (PCR) (NEGATIVE) 10/29/22 10/29/22 Range/Units 04:45 06:23 WBC (4.0-10.5) x10^3/uL RBC (4.1-5.6) x10^6/uL Hgb (12.5-18.0) g/dL Hct (42-50) % MCV (78-100) fL MCH (26-32) pg MCHC (32-36) g/dL RDW (11.5-14.0) % Plt Count (150-450) x10^3/uL MPV (7.5-11.0) fL Gran % (36.0-66.0) % Immature Gran % (Auto) (0.00-0.4) % Nucleat RBC Rel Count (0.00-0.1) % Eos # (Auto) (0-0.5) x10^3/uL Immature Gran # (Auto) (0.00-0.03) x10^3u/L Absolute Lymphs (auto) (1.0-4.6) x10^3/uL Absolute Monos (auto) (0.0-1.3) x10^3/uL Absolute Nucleated RBC (0.00-0.01) x10^3u/L Lymphocytes % (24.0-44.0) % Monocytes % (0.0-12.0) % Eosinophils % (0.00-5.0) % Basophils % (0.0-0.4) % Absolute Granulocytes (1.4-6.9) x10^3/uL Basophils # (0-0.4) x10^3/uL ESR (0-15) mm/hr Sodium 135 L (137-145) mmol/L Potassium 4.3 (3.5-5.1) mmol/L Chloride 101 (98-107) mmol/L Carbon Dioxide 24 (22-30) mmol/L Anion Gap 14.0 (5-15) MEQ/L BUN 11 (9-20) mg/dL Creatinine 0.73 (0.66-1.25) mg/dL Estimated GFR > 60.0 ML/MIN Glucose 255 H (74-106) mg/dL POC Glucometer 187 H (74 to 106) mg/dL Hemoglobin A1c (4.5-6.0) % Lactic Acid (0.4-2.0) Calcium 8.8 (8.4-10.2) mg/dL Total Bilirubin 0.30 (0.2-1.3) mg/dL AST 31 (17-59) U/L ALT 36 (0-50) U/L Alkaline Phosphatase 90 (38-126) U/L Serum Total Protein 7.5 (6.3-8.2) g/dL Albumin 4.3 (3.5-5.0) g/dL Urinalys Dipstick Clnc Urine Color (YELLOW) Urine Appearance (CLEAR) Urine pH (5-6) Ur Specific [place] (1.005-1.025) POC Urine Protein Conf (Negative) Urine Ketones (NEGATIVE) Urine Nitrite (NEGATIVE) Urine Bilirubin (NEGATIVE) Urine Urobilinogen (0-1) mg/dL Urine Leukocytes (NEGATIVE) Urine WBC (Auto) (0-5) /HPF Urine RBC (Auto) (0-2) /HPF U Epithel Cells (Auto) (FEW) /HPF Urine Bacteria (Auto) (NEGATIVE) /HPF Urine RBC (0-5) Chase/ul Urine Mucus (Auto) (NEGATIVE) /HPF Ur Culture Indicated? 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
[2022-10-29] MEDS ORDERED: NON-FORMULARY ITEM (Aspirin [Aspirin] 81 MG Tablet) PO SCH (10:00)
[2022-10-29] MEDS ORDERED: NON-FORMULARY ITEM (Multivitamin [Multi-Vitamin Daily] 1 EACH Tablet) PO SCH (10:00)
[2022-10-29] MEDS: Cymbalta 30 MG Capsule PO SCH ×2 (11:01→21:37)
[2022-10-29] MEDS: THERAGRAN MULTIVITAMIN PO SCH (11:01)
[2022-10-29] MEDS: ECOTRIN 81 MG PO SCH ×2 (11:02→11:06)
[2022-10-29] MEDS: Glucophage 500 MG PO SCH ×2 (11:06→17:33)
[2022-10-29] MEDS ORDERED: solu-MEDROL ONE ×2 (14:28→21:04)
[2022-10-29] MEDS: solu-MEDROL 80 MG, Sterile H2O 10 ml 2 ML IV SCH ×4 (14:34→21:37)
[2022-10-29] MEDS: Vasotec 10 MG PO SCH (21:37)
[2022-10-29] MEDS: Protonix 20MG Tablet PO SCH (21:38)
[2022-10-29] MEDS: Zocor 10MG PO SCH (21:38)
[2022-10-29] MEDS: BENADRYL 50 MG/ML IV SCH (21:39)
[2022-10-29] MEDS: HUMALOG SQ PRN (21:51)
[2022-10-30] MEDS: MSIR 15 MG PO SCH ×4 (00:25→17:25)
[2022-10-30] MEDS: Sodium Chloride 0.9% 1000 ML 1,000 ML IV SCH ×2 (04:48→17:27)
[2022-10-30 05:15] LABS: Absolute Neutrophil Ct (ANC) 17.47 x10^3/uL (1.4-6.9); Basophil (Absolute #) 0.02 x10^3/uL (0-0.4); Eosinophil (Absolute #) 0 x10^3/uL (0-0.5); Hematocrit 43.1 % (42-50); Hemoglobin 13.7 g/dL (12.5-18.0); Lymphocyte (Absolute #) 2.05 x10^3/uL (1.0-4.6); Mean Cell Volume 87.1 fL (78-100); Mean Corpuscular Hemoglobin 27.7 pg (26-32); Mean Corpuscular Hgb Concent. 31.8 g/dL (32-36); Monocyte (Absolute #) 0.84 x10^3/uL (0.0-1.3); Monocytes % 4.1 % (0.0-12.0); Neutrophil % 85.2 % (36.0-66.0); Platelet Count 431 x10^3/uL (150-450); Red Blood Count 4.95 x10^6/uL (4.1-5.6); Red Cell Distribution Width 18.8 % (11.5-14.0); White Blood Count 20.5 x10^3/uL (4.0-10.5)
[2022-10-30 05:47] LABS: ALKALINE PHOSPHATASE 95 U/L (38-126); ANION GAP 12.6 MEQ/L (5-15); BLOOD UREA NITROGEN 12 mg/dL (9-20); CHLORIDE 104 mmol/L (98-107); Calcium 8.8 mg/dL (8.4-10.2); Carbon Dioxide 23 mmol/L (22-30); Creatinine 1 0.66 mg/dL (0.66-1.25); EST GLOMERULAR FILTRATION RATE > 60.0 ML/MIN; Glucose 297 mg/dL (74-106); Potassium 4.5 mmol/L (3.5-5.1); SGOT/AST 26 U/L (17-59); SGPT/ALT 30 U/L (0-50); SODIUM 134 mmol/L (137-145)
[2022-10-30] MEDS ORDERED: solu-MEDROL ONE (06:15)
[2022-10-30] MEDS: solu-MEDROL 80 MG, Sterile H2O 10 ml 2 ML IV SCH ×6 (06:35→21:53)
[2022-10-30] MEDS: SODIUM CHLORIDE MINI IV SCH ×3 (06:41→22:02)
[2022-10-30] MEDS: ZOVIRAX IV SCH ×3 (06:41→22:02)
[2022-10-30] MEDS: Glucophage 500 MG PO SCH ×2 (08:12→17:24)
[2022-10-30] MEDS: HUMALOG SQ PRN ×4 (08:13→21:57)
[2022-10-30] MEDS: Cymbalta 30 MG Capsule PO SCH ×2 (09:31→21:52)
[2022-10-30] MEDS: ECOTRIN 81 MG PO SCH (09:32)
[2022-10-30] MEDS: THERAGRAN MULTIVITAMIN PO SCH (09:32)
--- NOTE | 2022-10-30 10:56 | PCM.NOTE ---
Date and Time: 10/30/22 1055 Subjective Assessment: patient got some rest last night, basal rate on belt notcher was accidentally stopped but is now restarted. still having significant pain and debility Objective Exam General Appearance: obese Neurologic Exam: alert, oriented x 3 Respiratory Exam: normal breath sounds, lungs clear, No respiratory distress Cardiovascular Exam: regular rate/rhythm, normal heart sounds Gastrointestinal/Abdomen Exam: soft, No tenderness, No mass OBJECTIVE DATA Vital Signs: Vital Signs - 24 hr Temp Pulse Resp BP Pulse Ox 10/30/22 09:28 94 L 10/30/22 08:00 20 97 10/30/22 07:37 96.9 F 91 H 18 132/83 100 10/30/22 06:50 18 96 10/30/22 04:00 75 96 10/30/22 00:00 97.3 F 110 H 19 128/78 98 10/29/22 23:55 20 98 10/29/22 22:00 16 97 10/29/22 20:30 18 96 10/29/22 19:57 97.7 F 110 H 20 123/61 95 10/29/22 19:55 16 96 10/29/22 19:16 96 10/29/22 18:00 18 95 10/29/22 16:31 97.8 F 110 H 18 141/72 96 10/29/22 16:30 20 99 10/29/22 15:14 97.8 F 113 H 154/70 95 10/29/22 14:38 95 10/29/22 14:00 2 L 96 10/29/22 12:30 22 96 10/29/22 12:00 97.8 F 113 H 16 154/70 96 Pain Assessment - Last Documented Pain Intensity [Neck] 9 Pain Intensity 9 Pain Scale Used 0-10 Pain Scale Intake and Output: Intake & Output 10/27/22 10/28/22 10/29/22 10/30/22 11:59 11:59 11:59 11:59 Intake Total 4291 5740 Output Total 4040 5694 Balance 2241 115 Weight 108.5 kg 112.7 kg Lab Results: Lab Results-Last 24 Hours 10/29/22 10/29/22 10/29/22 Range/Units 11:30 16:28 20:28 WBC (4.0-10.5) x10^3/uL RBC (4.1-5.6) x10^6/uL Hgb (12.5-18.0) g/dL Hct (42-50) % MCV (78-100) fL MCH (26-32) pg MCHC (32-36) g/dL RDW (11.5-14.0) % Plt Count (150-450) x10^3/uL MPV (7.5-11.0) fL Gran % (36.0-66.0) % Immature Gran % (Auto) (0.00-0.4) % Nucleat RBC Rel Count (0.00-0.1) % Eos # (Auto) (0-0.5) x10^3/uL Immature Gran # (Auto) (0.00-0.03) x10^3u/L Absolute Lymphs (auto) (1.0-4.6) x10^3/uL Absolute Monos (auto) (0.0-1.3) x10^3/uL Absolute Nucleated RBC (0.00-0.01) x10^3u/L Lymphocytes % (24.0-44.0) % Monocytes % (0.0-12.0) % Eosinophils % (0.00-5.0) % Basophils % (0.0-0.4) % Absolute Granulocytes (1.4-6.9) x10^3/uL Basophils # (0-0.4) x10^3/uL Sodium (137-145) mmol/L Potassium (3.5-5.1) mmol/L Chloride (98-107) mmol/L Carbon Dioxide (22-30) mmol/L Anion Gap (5-15) MEQ/L BUN (9-20) mg/dL Creatinine (0.66-1.25) mg/dL Estimated GFR ML/MIN Glucose (74-106) mg/dL POC Glucometer 350 H 255 H 272 H (74 to 106) mg/dL Calcium (8.4-10.2) mg/dL Total Bilirubin (0.2-1.3) mg/dL AST (17-59) U/L ALT (0-50) U/L Alkaline Phosphatase (38-126) U/L Serum Total Protein (6.3-8.2) g/dL Albumin (3.5-5.0) g/dL 12/29/22 12/29/22 12/29/22 Range/Units 04:43 04:43 06:42 WBC 20.5 H (4.0-10.5) x10^3/uL RBC 4.95 (4.1-5.6) x10^6/uL Hgb 13.7 (12.5-18.0) g/dL Hct 43.1 (42-50) % MCV 87.1 (78-100) fL MCH 27.7 (26-32) pg MCHC 31.8 L (32-36) g/dL RDW 18.8 H (11.5-14.0) % Plt Count 431 (150-450) x10^3/uL MPV 10.0 (7.5-11.0) fL Gran % 85.2 H (36.0-66.0) % Immature Gran % (Auto) 0.6 H (0.00-0.4) % Nucleat RBC Rel Count 0.0 (0.00-0.1) % Eos # (Auto) 0 (0-0.5) x10^3/uL Immature Gran # (Auto) 0.12 H (0.00-0.03) x10^3u/L Absolute Lymphs (auto) 2.05 (1.0-4.6) x10^3/uL Absolute Monos (auto) 0.84 (0.0-1.3) x10^3/uL Absolute Nucleated RBC 0.00 (0.00-0.01) x10^3u/L Lymphocytes % 10.0 L (24.0-44.0) % Monocytes % 4.1 (0.0-12.0) % Eosinophils % 0.0 (0.00-5.0) % Basophils % 0.1 (0.0-0.4) % Absolute Granulocytes 17.47 H (1.4-6.9) x10^3/uL Basophils # 0.02 (0-0.4) x10^3/uL Sodium 134 L (137-145) mmol/L Potassium 4.5 (3.5-5.1) mmol/L Chloride 104 (98-107) mmol/L Carbon Dioxide 23 (22-30) mmol/L Anion Gap 12.6 (5-15) MEQ/L BUN 12 (9-20) mg/dL Creatinine 0.66 (0.66-1.25) mg/dL Estimated GFR > 60.0 ML/MIN Glucose 297 H (74-106) mg/dL POC Glucometer 213 H (74 to 106) mg/dL Calcium 8.8 (8.4-10.2) mg/dL Total Bilirubin 0.30 (0.2-1.3) mg/dL AST 26 (17-59) U/L ALT 30 (0-50) U/L Alkaline Phosphatase 95 (38-126) U/L Serum Total Protein 7.0 (6.3-8.2) g/dL Albumin 4.0 (3.5-5.0) g/dL Multi-Disciplinary Progress Notes: Multi-Disciplinary Progress Notes 10/30/22 09:38 Case Management Note by Kasie Garcia REVIEWED CHART- NO CHANGE IN DC PLANS AT THIS TIME Initialized on 10/30/22 09:38 - END OF NOTE 10/29/22 14:38 Respiratory Note by Liset Murdock Pulse oximeter changed out with a new one due to machine beeping too much for the patient. New pulse ox probe placed on patient at this time. Initialized on 10/29/22 14:38 - END OF NOTE Assessment/Plan (1) 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: Acute Assessment & Plan: continue IV acyclovir, solu medrol and fluids. dilaudid SURGICAL SUPERVISOR Code(s): G03.2 - BENIGN RECURRENT MENINGITIS [MOLLARET] (2) Type 2 diabetes mellitus Current Visit: No Status: Chronic Qualifiers:
[2022-10-30] MEDS: DILAUDID 1 MG/1ML PCA SYRINGE IV PRN (17:15)
[2022-10-30] MEDS: Protonix 20MG Tablet PO SCH (21:53)
[2022-10-30] MEDS: Zocor 10MG PO SCH (21:53)
[2022-10-30] MEDS: Vasotec 10 MG PO SCH (21:53)
[2022-10-31] MEDS: MSIR 15 MG PO SCH ×5 (00:08→23:55)
[2022-10-31] MEDS: MINERAL OIL PO SCH ×4 (00:12→22:16)
[2022-10-31] MEDS: BENADRYL 50 MG/ML IV SCH ×2 (02:05→23:19)
[2022-10-31] MEDS: Sodium Chloride 0.9% 1000 ML 1,000 ML IV SCH ×2 (04:00→16:01)
[2022-10-31] MEDS: solu-MEDROL 80 MG, Sterile H2O 10 ml 2 ML IV SCH ×6 (05:25→22:17)
[2022-10-31] MEDS: SODIUM CHLORIDE MINI IV SCH ×3 (05:25→22:17)
[2022-10-31] MEDS: ZOVIRAX IV SCH ×3 (05:25→22:17)
[2022-10-31] MEDS: Glucophage 500 MG PO SCH ×2 (07:29→17:33)
[2022-10-31] MEDS: DILAUDID 1 MG/1ML PCA SYRINGE IV PRN (08:35)
[2022-10-31] MEDS: Cymbalta 30 MG Capsule PO SCH ×2 (10:10→22:16)
[2022-10-31] MEDS: ECOTRIN 81 MG PO SCH (10:10)
[2022-10-31] MEDS: THERAGRAN MULTIVITAMIN PO SCH (10:11)
[2022-10-31] MEDS: HUMALOG SQ PRN ×3 (12:19→22:21)
--- NOTE | 2022-10-31 12:31 | PCM.NOTE ---
Date and Time: 10/31/22 1223 Subjective Assessment: improved pain control of neck pain, VSS but WBC elevated 20,000. Is on IV solumedrol.Appetite is good now that pain is controlled. Objective Exam General Appearance: no apparent distress, anxiety (says steroid causing this) Neurologic Exam: alert, oriented x 3, cooperative Skin Exam: warm, dry (flushed) Ears, Nose, Throat Exam: normal ENT inspection Neck Exam: normal inspection (some paracervical spasm,no rigidity) Respiratory Exam: normal breath sounds Cardiovascular Exam: regular rate/rhythm OBJECTIVE DATA Vital Signs: Vital Signs - 24 hr Temp Pulse Resp BP Pulse Ox 10/31/22 12:00 98.4 F 77 16 139/86 97 10/31/22 11:00 17 97 10/31/22 08:35 17 99 10/31/22 08:14 93 L 10/31/22 07:56 97.0 F 70 16 140/81 96 10/31/22 04:00 97.1 F 98 H 18 145/91 95 10/31/22 00:00 92 H 18 95 10/30/22 21:03 96 10/30/22 20:00 97.1 F 96 H 16 137/79 93 L 10/30/22 19:16 16 95 10/30/22 17:15 20 98 10/30/22 16:00 18 97 10/30/22 15:51 97.5 F 107 H 17 123/70 95 Pain Assessment - Last Documented Pain Intensity [Neck] 9 Pain Intensity 8 Pain Scale Used 0-10 Pain Scale Intake and Output: Intake & Output 10/29/22 10/30/22 10/31/22 11/01/22 11:59 11:59 11:59 11:59 Intake Total 4291 5740 6198 Output Total 2050 5625 5975 600 Balance 2241 115 223 -600 Weight 108.5 kg 112.7 kg Lab Results: Lab Results-Last 24 Hours 10/30/22 10/30/22 10/31/22 Range/Units 15:35 21:47 07:06 POC Glucometer 345 H 274 H 170 H (74 to 106) mg/dL 10/31/22 Range/Units 11:54 POC Glucometer 216 H (74 to 106) mg/dL Multi-Disciplinary Progress Notes: Multi-Disciplinary Progress Notes 10/31/22 10:51 Case Management Note by Kasie Garcia/W PATIENT- HE CONTINUES TO DENY ANY NEW NEEDS AT TIME OF DC. HE PLANS TO RETURN HOME TO HIS PLF AT TIME OF DC Initialized on 10/31/22 10:51 - END OF NOTE Assessment/Plan (1) 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: Acute Assessment & Plan: improved on steroids IV and Morphine IT SECURITY MANAGER Code(s): G03.2 - BENIGN RECURRENT MENINGITIS [MOLLARET] (2) Leukocytosis Current Visit: No Status: Acute Onset Date: ~11/02/18 Assessment & Plan: due to steroids,VSS Code(s): D72.829 - ELEVATED WHITE BLOOD CELL COUNT, UNSPECIFIED
[2022-10-31] MEDS: Vasotec 10 MG PO SCH (22:16)
[2022-10-31] MEDS: Protonix 20MG Tablet PO SCH (22:16)
[2022-10-31] MEDS: Zocor 10MG PO SCH (22:16)
[2022-11-01] MEDS: DILAUDID 1 MG/1ML PCA SYRINGE IV PRN ×2 (01:03→16:37)
[2022-11-01] MEDS: Sodium Chloride 0.9% 1000 ML 1,000 ML IV SCH (01:31)
[2022-11-01] MEDS: solu-MEDROL 80 MG, Sterile H2O 10 ml 2 ML IV SCH ×6 (07:20→21:46)
[2022-11-01] MEDS: MSIR 15 MG PO SCH ×4 (07:20→23:14)
[2022-11-01] MEDS: ZOVIRAX IV SCH ×3 (07:21→21:46)
[2022-11-01] MEDS: SODIUM CHLORIDE MINI IV SCH ×3 (07:21→21:46)
[2022-11-01] MEDS: HUMALOG SQ PRN ×4 (08:01→22:14)
[2022-11-01] MEDS: Glucophage 500 MG PO SCH ×2 (08:02→16:39)
[2022-11-01] MEDS: ECOTRIN 81 MG PO SCH (09:39)
[2022-11-01] MEDS: MINERAL OIL PO SCH ×3 (09:39→21:45)
[2022-11-01] MEDS: THERAGRAN MULTIVITAMIN PO SCH (09:39)
[2022-11-01] MEDS: Cymbalta 30 MG Capsule PO SCH ×2 (09:39→21:45)
[2022-11-01 10:20] LABS: Absolute Neutrophil Ct (ANC) 12.98 x10^3/uL (1.4-6.9); Basophil (Absolute #) 0.05 x10^3/uL (0-0.4); Eosinophil (Absolute #) 0 x10^3/uL (0-0.5); Hematocrit 41.7 % (42-50); Hemoglobin 13.3 g/dL (12.5-18.0); Lymphocyte (Absolute #) 1.47 x10^3/uL (1.0-4.6); Lymphocytes % 9.5 % (24.0-44.0); Mean Cell Volume 86.7 fL (78-100); Mean Corpuscular Hemoglobin 27.7 pg (26-32); Mean Corpuscular Hgb Concent. 31.9 g/dL (32-36); Mean Platelet Volume 9.7 fL (7.5-11.0); Monocyte (Absolute #) 0.68 x10^3/uL (0.0-1.3); Monocytes % 4.4 % (0.0-12.0); Neutrophil % 83.5 % (36.0-66.0); Platelet Count 410 x10^3/uL (150-450); Red Blood Count 4.81 x10^6/uL (4.1-5.6); Red Cell Distribution Width 18.6 % (11.5-14.0); White Blood Count 15.5 x10^3/uL (4.0-10.5)
[2022-11-01 10:57] LABS: ANION GAP 12.2 MEQ/L (5-15); BLOOD UREA NITROGEN 17 mg/dL (9-20); CHLORIDE 101 mmol/L (98-107); Calcium 8.2 mg/dL (8.4-10.2); Carbon Dioxide 24 mmol/L (22-30); Creatinine 1 0.71 mg/dL (0.66-1.25); EST GLOMERULAR FILTRATION RATE > 60.0 ML/MIN; Glucose 261 mg/dL (74-106); Potassium 4.1 mmol/L (3.5-5.1); SODIUM 133 mmol/L (137-145)
[2022-11-01] MEDS: Acidophilus TABLET PO SCH ×2 (15:00→21:45)
[2022-11-01] MEDS: Augmentin 875-125 Tablet PO SCH ×2 (15:01→23:11)
--- NOTE | 2022-11-01 15:08 | PCM.NOTE ---
Date and Time: 11/01/22 1502 Subjective Assessment: PARK is feeling somewhat better. However, he is having sinus drainage/pressure and sore throat. He has gotten quite ill in the past beginning with these symptoms. López po. - Review of Systems Constitutional: No Fever Ears, Nose, & Throat: Sinus Drainage, Throat Pain Neurological: Headache Objective Exam General Appearance: no apparent distress, alert, obese Neurologic Exam: oriented x 3, cooperative Skin Exam: normal color, warm, dry, No rash Eye Exam: eyes nml inspection Ears, Nose, Throat Exam: pharyngeal erythema (mild, posterior), other (max sinuses nttp. Frontal sinuses ttp bilat.) Neck Exam: normal inspection, non-tender, No lymphadenopathy, No subcutaneous emphysema, No thyromegaly Respiratory Exam: normal breath sounds, lungs clear, No crackles/rales, No rhonchi, No wheezing Cardiovascular Exam: regular rate/rhythm, normal heart sounds, No murmur Gastrointestinal/Abdomen Exam: soft, normal bowel sounds, distention (as usual), No tenderness, No mass, No guarding, No rebound Extremity Exam: normal inspection, No pedal edema, No swelling OBJECTIVE DATA Vital Signs: Vital Signs - 24 hr Temp Pulse Resp BP Pulse Ox 11/01/22 13:00 17 95 11/01/22 12:00 97.8 F 80 16 130/83 93 L 11/01/22 09:00 19 97 11/01/22 08:22 94 L 11/01/22 07:45 97.9 F 72 16 171/94 94 L 11/01/22 05:00 16 96 11/01/22 04:00 89 16 95 11/01/22 01:03 18 96 11/01/22 00:00 98.3 F 80 18 127/70 96 10/31/22 19:56 98.2 F 86 20 140/83 94 L 10/31/22 19:00 16 95 10/31/22 18:55 94 L 10/31/22 16:35 17 94 L 10/31/22 16:00 97.3 F 105 H 17 141/75 97 Pain Assessment - Last Documented Pain Intensity [Neck] 9 Pain Intensity 7 Pain Scale Used 0-10 Pain Scale Intake and Output: Intake & Output 10/30/22 10/31/22 11/01/22 11/02/22 11:59 11:59 11:59 11:59 Intake Total 9038 6198 4368 580 Output Total 5625 5917 6150 600 Balance 115 223 -1782 -20 Weight 112.7 kg 112.7 kg 112.3 kg 112.3 kg Lab Results: Lab Results-Last 24 Hours 10/31/22 10/31/22 11/01/22 Range/Units 16:01 21:34 07:22 WBC (4.0-10.5) x10^3/uL RBC (4.1-5.6) x10^6/uL Hgb (12.5-18.0) g/dL Hct (42-50) % MCV (78-100) fL MCH (26-32) pg MCHC (32-36) g/dL RDW (11.5-14.0) % Plt Count (150-450) x10^3/uL MPV (7.5-11.0) fL Gran % (36.0-66.0) % Immature Gran % (Auto) (0.00-0.4) % Nucleat RBC Rel Count (0.00-0.1) % Eos # (Auto) (0-0.5) x10^3/uL Immature Gran # (Auto) (0.00-0.03) x10^3u/L Absolute Lymphs (auto) (1.0-4.6) x10^3/uL Absolute Monos (auto) (0.0-1.3) x10^3/uL Absolute Nucleated RBC (0.00-0.01) x10^3u/L Lymphocytes % (24.0-44.0) % Monocytes % (0.0-12.0) % Eosinophils % (0.00-5.0) % Basophils % (0.0-0.4) % Absolute Granulocytes (1.4-6.9) x10^3/uL Basophils # (0-0.4) x10^3/uL Sodium (137-145) mmol/L Potassium (3.5-5.1) mmol/L Chloride (98-107) mmol/L Carbon Dioxide (22-30) mmol/L Anion Gap (5-15) MEQ/L BUN (9-20) mg/dL Creatinine (0.66-1.25) mg/dL Estimated GFR ML/MIN Glucose (74-106) mg/dL POC Glucometer 294 H 339 H 209 H (74 to 106) mg/dL Calcium (8.4-10.2) mg/dL 11/01/22 11/01/22 11/01/22 Range/Units 10:20 10:20 11:23 WBC 15.5 H (4.0-10.5) x10^3/uL RBC 4.81 (4.1-5.6) x10^6/uL Hgb 13.3 (12.5-18.0) g/dL Hct 41.7 L (42-50) % MCV 86.7 (78-100) fL MCH 27.7 (26-32) pg MCHC 31.9 L (32-36) g/dL RDW 18.6 H (11.5-14.0) % Plt Count 410 (150-450) x10^3/uL MPV 9.7 (7.5-11.0) fL Gran % 83.5 H (36.0-66.0) % Immature Gran % (Auto) 2.3 H (0.00-0.4) % Nucleat RBC Rel Count 0.8 H (0.00-0.1) % Eos # (Auto) 0 (0-0.5) x10^3/uL Immature Gran # (Auto) 0.35 H (0.00-0.03) x10^3u/L Absolute Lymphs (auto) 1.47 (1.0-4.6) x10^3/uL Absolute Monos (auto) 0.68 (0.0-1.3) x10^3/uL Absolute Nucleated RBC 0.12 H (0.00-0.01) x10^3u/L Lymphocytes % 9.5 L (24.0-44.0) % Monocytes % 4.4 (0.0-12.0) % Eosinophils % 0.0 (0.00-5.0) % Basophils % 0.3 (0.0-0.4) % Absolute Granulocytes 12.98 H (1.4-6.9) x10^3/uL Basophils # 0.05 (0-0.4) x10^3/uL Sodium 133 L (137-145) mmol/L Potassium 4.1 (3.5-5.1) mmol/L Chloride 101 (98-107) mmol/L Carbon Dioxide 24 (22-30) mmol/L Anion Gap 12.2 (5-15) MEQ/L BUN 17 (9-20) mg/dL Creatinine 0.71 (0.66-1.25) mg/dL Estimated GFR > 60.0 ML/MIN Glucose 261 H (74-106) mg/dL POC Glucometer 259 H (74 to 106) mg/dL Calcium 8.2 L (8.4-10.2) mg/dL Assessment/Plan (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 Having more frequent occurences of exacerbations, which he says was expected per neurology. Code(s): G03.2 - BENIGN RECURRENT MENINGITIS [MOLLARET] (2) Sinusitis Current Visit: Yes Status: Acute Qualifiers: Sinusitis location: frontal Chronicity: subacute Qualified Code(s): J01.10 - Acute frontal sinusitis, unspecified Assessment & Plan: treat with augmentin Code(s): J32.9 - CHRONIC SINUSITIS, UNSPECIFIED (3) Pharyngitis Current Visit: No Status: Acute Qualifiers: Pharyngitis/tonsillitis etiology: unspecified etiology Qualified Code(s): J02.9 - Acute pharyngitis, unspecified Assessment & Plan: Will go ahead and check for strep and Covid. Code(s): J02.9 - ACUTE PHARYNGITIS, UNSPECIFIED (4) Type 2 diabetes mellitus Current Visit: No Status: Chronic Qualifiers: Diabetes mellitus mcfp insulin use: without terminal operations manager use Diabetes mellitus complication status: without complication Qualified Code(s): E11.9 - Type 2 diabetes mellitus without complications (5) Hyponatremia Current Visit: Yes Status: Chronic Assessment & Plan: mild, persistent since arrival. Code(s): E87.1 - HYPO-OSMOLALITY AND HYPONATREMIA
[2022-11-01 16:04] LABS: INFLUENZA A NEGATIVE (NEGATIVE); INFLUENZA B NEGATIVE (NEGATIVE); RESPIRATORY SYNCTIAL VIRUS NEGATIVE (Negative); SARS-CoV-2 Xpert Express NEGATIVE (NEGATIVE)
[2022-11-01] MEDS ORDERED: Lasix 20 MG/2 ML IV PRN (16:14)
[2022-11-01] MEDS: Protonix 20MG Tablet PO SCH (21:46)
[2022-11-01] MEDS: Vasotec 10 MG PO SCH (21:46)
[2022-11-01] MEDS: Zocor 10MG PO SCH (21:46)
[2022-11-01] MEDS: BENADRYL 50 MG/ML IV SCH (21:48)
[2022-11-02] MEDS: Augmentin 875-125 Tablet PO SCH (03:57)
[2022-11-02] MEDS: MSIR 15 MG PO SCH ×2 (05:55→11:47)
[2022-11-02] MEDS: solu-MEDROL 80 MG, Sterile H2O 10 ml 2 ML IV SCH ×2 (05:55)
[2022-11-02] MEDS: ZOVIRAX IV SCH (05:56)
[2022-11-02] MEDS: SODIUM CHLORIDE MINI IV SCH (05:56)
[2022-11-02] MEDS ORDERED: APRESOLINE 20 MG/ML INJ IV PRN (06:31)
[2022-11-02 06:59] LABS: Absolute Neutrophil Ct (ANC) 11.17 x10^3/uL (1.4-6.9); Basophil (Absolute #) 0.04 x10^3/uL (0-0.4); Eosinophil (Absolute #) 0 x10^3/uL (0-0.5); Hematocrit 41.1 % (42-50); Hemoglobin 13.2 g/dL (12.5-18.0); Lymphocytes % 13.8 % (24.0-44.0); Mean Cell Volume 86.3 fL (78-100); Mean Corpuscular Hemoglobin 27.7 pg (26-32); Mean Corpuscular Hgb Concent. 32.1 g/dL (32-36); Mean Platelet Volume 9.8 fL (7.5-11.0); Monocyte (Absolute #) 0.99 x10^3/uL (0.0-1.3); Monocytes % 6.8 % (0.0-12.0); Neutrophil % 76.8 % (36.0-66.0); Platelet Count 397 x10^3/uL (150-450); Red Blood Count 4.76 x10^6/uL (4.1-5.6); Red Cell Distribution Width 18.1 % (11.5-14.0); White Blood Count 14.5 x10^3/uL (4.0-10.5)
[2022-11-02 07:24] LABS: ALBUMIN 3.5 g/dL (3.5-5.0); ALKALINE PHOSPHATASE 81 U/L (38-126); ANION GAP 8.9 MEQ/L (5-15); BLOOD UREA NITROGEN 16 mg/dL (9-20); CHLORIDE 99 mmol/L (98-107); Calcium 8.1 mg/dL (8.4-10.2); Carbon Dioxide 30 mmol/L (22-30); Creatinine 1 0.64 mg/dL (0.66-1.25); EST GLOMERULAR FILTRATION RATE > 60.0 ML/MIN; Glucose 251 mg/dL (74-106); Potassium 4.3 mmol/L (3.5-5.1); SGOT/AST 22 U/L (17-59); SGPT/ALT 28 U/L (0-50); SODIUM 134 mmol/L (137-145); Total Protein 6.2 g/dL (6.3-8.2)
[2022-11-02] MEDS: Glucophage 500 MG PO SCH (07:42)
[2022-11-02] MEDS: HUMALOG SQ PRN ×2 (08:01→11:47)
[2022-11-02] MEDS: DILAUDID 1 MG/1ML PCA SYRINGE IV PRN (09:08)
[2022-11-02] MEDS: MINERAL OIL PO SCH (09:14)
[2022-11-02] MEDS: ECOTRIN 81 MG PO SCH (09:14)
[2022-11-02] MEDS: Acidophilus TABLET PO SCH (09:14)
[2022-11-02] MEDS: THERAGRAN MULTIVITAMIN PO SCH (09:14)
[2022-11-02] MEDS: Cymbalta 30 MG Capsule PO SCH (09:14)
[2022-11-02 12:14] VITALS: BP 158/81; PULSE 80; O2SAT 95
--- NOTE | 2022-11-02 12:37 | PCM.DS ---
Discharge Summary Date of Admission: 10/29/22 08:04 Admitting Physician: ANN ALEXIS Primary Care Provider: ANN ALEXIS Allergies Allergies pregabalin [From Lyrica] Adverse Reaction (Severe, Verified 10/28/22 16:09) Hives SOB hives azithromycin [From Zmax] Adverse Reaction (Mild, Verified 10/28/22 16:09) vomiting Hospital Summary - Hospital Course Hospital Course: Pt is 52 yo male pt of Dr. Alexis' with hx aseptic meningitis, recurrent (Mollaret's) who was admitted through ER wtih exacerbation. Neg for flu/covid. Labs with mildly elevated WBC count, which increased d/t steroid administration. Yesterday he started c/o sinus pressure and sore throat - covid and strep again negative. Started on augmentin. His pain (PARK) is better today and will be dis charged to home on home meds (including probiotic) with the addition of augmentin to finish 10d total. - Vitals & Intake/Output Vital Signs: Vital Signs Temperature 97.0 F 11/02/22 12:00 Pulse Rate 80 11/02/22 12:00 Respiratory Rate 17 11/02/22 12:00 Blood Pressure 158/81 11/02/22 12:00 O2 Sat by Pulse Oximetry 95 11/02/22 12:00 Intake & Output: Intake & Output 10/31/22 11/01/22 11/02/22 11/03/22 11:59 11:59 11:59 11:59 Intake Total 6198 4368 3989 Output Total 5975 6150 5500 Balance 223 -7585 -1515 Weight 112.7 kg 112.3 kg 114.6 kg - Lab Result Diagrams: 11/02/22 06:44 11/02/22 06:44 Lab Results-Last 24 Hrs: Lab Results-Last 24 Hours 11/01/22 11/01/22 11/01/22 Range/Units 15:07 16:35 21:17 WBC (4.0-10.5) x10^3/uL RBC (4.1-5.6) x10^6/uL Hgb (12.5-18.0) g/dL Hct (42-50) % MCV (78-100) fL MCH (26-32) pg MCHC (32-36) g/dL RDW (11.5-14.0) % Plt Count (150-450) x10^3/uL MPV (7.5-11.0) fL Gran % (36.0-66.0) % Immature Gran % (Auto) (0.00-0.4) % Nucleat RBC Rel Count (0.00-0.1) % Eos # (Auto) (0-0.5) x10^3/uL Immature Gran # (Auto) (0.00-0.03) x10^3u/L Absolute Lymphs (auto) (1.0-4.6) x10^3/uL Absolute Monos (auto) (0.0-1.3) x10^3/uL Absolute Nucleated RBC (0.00-0.01) x10^3u/L Lymphocytes % (24.0-44.0) % Monocytes % (0.0-12.0) % Eosinophils % (0.00-5.0) % Basophils % (0.0-0.4) % Absolute Granulocytes (1.4-6.9) x10^3/uL Basophils # (0-0.4) x10^3/uL Sodium (137-145) mmol/L Potassium (3.5-5.1) mmol/L Chloride (98-107) mmol/L Carbon Dioxide (22-30) mmol/L Anion Gap (5-15) MEQ/L BUN (9-20) mg/dL Creatinine (0.66-1.25) mg/dL Estimated GFR ML/MIN Glucose (74-106) mg/dL POC Glucometer 226 H 253 H (74 to 106) mg/dL Calcium (8.4-10.2) mg/dL Total Bilirubin (0.2-1.3) mg/dL AST (17-59) U/L ALT (0-50) U/L Alkaline Phosphatase (38-126) U/L Serum Total Protein (6.3-8.2) g/dL Albumin (3.5-5.0) g/dL Influenza Type A Ag NEGATIVE (NEGATIVE) Influenza Type B Ag NEGATIVE (NEGATIVE) RSV (PCR) NEGATIVE (Negative) SARS-CoV-2 (PCR) NEGATIVE (NEGATIVE) 11/02/22 11/02/22 11/02/22 Range/Units 06:44 06:44 07:16 WBC 14.5 H (4.0-10.5) x10^3/uL RBC 4.76 (4.1-5.6) x10^6/uL Hgb 13.2 (12.5-18.0) g/dL Hct 41.1 L (42-50) % MCV 86.3 (78-100) fL MCH 27.7 (26-32) pg MCHC 32.1 (32-36) g/dL RDW 18.1 H (11.5-14.0) % Plt Count 397 (150-450) x10^3/uL MPV 9.8 (7.5-11.0) fL Gran % 76.8 H (36.0-66.0) % Immature Gran % (Auto) 2.3 H (0.00-0.4) % Nucleat RBC Rel Count 1.0 H (0.00-0.1) % Eos # (Auto) 0 (0-0.5) x10^3/uL Immature Gran # (Auto) 0.33 H (0.00-0.03) x10^3u/L Absolute Lymphs (auto) 2.00 (1.0-4.6) x10^3/uL Absolute Monos (auto) 0.99 (0.0-1.3) x10^3/uL Absolute Nucleated RBC 0.14 H (0.00-0.01) x10^3u/L Lymphocytes % 13.8 L (24.0-44.0) % Monocytes % 6.8 (0.0-12.0) % Eosinophils % 0.0 (0.00-5.0) % Basophils % 0.3 (0.0-0.4) % Absolute Granulocytes 11.17 H (1.4-6.9) x10^3/uL Basophils # 0.04 (0-0.4) x10^3/uL Sodium 134 L (137-145) mmol/L Potassium 4.3 (3.5-5.1) mmol/L Chloride 99 (98-107) mmol/L Carbon Dioxide 30 (22-30) mmol/L Anion Gap 8.9 (5-15) MEQ/L BUN 16 (9-20) mg/dL Creatinine 0.64 L (0.66-1.25) mg/dL Estimated GFR > 60.0 ML/MIN Glucose 251 H (74-106) mg/dL POC Glucometer 215 H (74 to 106) mg/dL Calcium 8.1 L (8.4-10.2) mg/dL Total Bilirubin 0.40 (0.2-1.3) mg/dL AST 22 (17-59) U/L ALT 28 (0-50) U/L Alkaline Phosphatase 81 (38-126) U/L Serum Total Protein 6.2 L (6.3-8.2) g/dL Albumin 3.5 (3.5-5.0) g/dL Influenza Type A Ag (NEGATIVE) Influenza Type B Ag (NEGATIVE) RSV (PCR) (Negative) SARS-CoV-2 (PCR) (NEGATIVE) 11/02/22 Range/Units 11:33 WBC (4.0-10.5) x10^3/uL RBC (4.1-5.6) x10^6/uL Hgb (12.5-18.0) g/dL Hct (42-50) % MCV (78-100) fL MCH (26-32) pg MCHC (32-36) g/dL RDW (11.5-14.0) % Plt Count (150-450) x10^3/uL MPV (7.5-11.0) fL Gran % (36.0-66.0) % Immature Gran % (Auto) (0.00-0.4) % Nucleat RBC Rel Count (0.00-0.1) % Eos # (Auto) (0-0.5) x10^3/uL Immature Gran # (Auto) (0.00-0.03) x10^3u/L Absolute Lymphs (auto) (1.0-4.6) x10^3/uL Absolute Monos (auto) (0.0-1.3) x10^3/uL Absolute Nucleated RBC (0.00-0.01) x10^3u/L Lymphocytes % (24.0-44.0) % Monocytes % (0.0-12.0) % Eosinophils % (0.00-5.0) % Basophils % (0.0-0.4) % Absolute Granulocytes (1.4-6.9) x10^3/uL Basophils # (0-0.4) x10^3/uL Sodium (137-145) mmol/L Potassium (3.5-5.1) mmol/L Chloride (98-107) mmol/L Carbon Dioxide (22-30) mmol/L Anion Gap (5-15) MEQ/L BUN (9-20) mg/dL Creatinine (0.66-1.25) mg/dL Estimated GFR ML/MIN Glucose (74-106) mg/dL POC Glucometer 296 H (74 to 106) mg/dL Calcium (8.4-10.2) mg/dL Total Bilirubin (0.2-1.3) mg/dL AST (17-59) U/L ALT (0-50) U/L Alkaline Phosphatase (38-126) U/L Serum Total Protein (6.3-8.2) g/dL Albumin (3.5-5.0) g/dL Influenza Type A Ag (NEGATIVE) Influenza Type B Ag (NEGATIVE) RSV (PCR) (Negative) SARS-CoV-2 (PCR) (NEGATIVE) Micro Results-Entire Visit: Accuchecks Date 11/02/22 Date 11/02/22 Date 11/01/22 Time 12:13 Time 07:49 Time 16:48 Discharge Exam General Appearance: no apparent distress, alert, obese Neurologic Exam: oriented x 3, cooperative Eye Exam: eyes nml inspection Ears, Nose, Throat Exam: moist mucous membranes Neck Exam: normal inspection Respiratory Exam: normal breath sounds, lungs clear, No crackles/rales, No rhonchi, No wheezing Cardiovascular Exam: regular rate/rhythm, normal heart sounds, No murmur Gastrointestinal/Abdomen Exam: soft, normal bowel sounds, No tenderness, No mass, No guarding, No rebound Extremity Exam: normal inspection, swelling (trace edema LE L>R) Skin Exam: normal color, warm, dry, No rash Final Diagnosis/Problem List - Final Discharge Diagnosis/Problem (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 Assessment & Plan: improved, home on home meds. Code(s): G03.2 - BENIGN RECURRENT MENINGITIS [MOLLARET] (2) Sinusitis Current Visit: Yes Status: Acute Assessment & Plan: tx with augmentin 10d total Code(s): J32.9 - CHRONIC SINUSITIS, UNSPECIFIED (3) Pharyngitis Current Visit: No Status: Acute Assessment & Plan: explained may end up to be viral Code(s): J02.9 - ACUTE PHARYNGITIS, UNSPECIFIED (4) Type 2 diabetes mellitus Current Visit: No Status: Chronic (5) Hyponatremia Current Visit: Yes Status: Chronic Code(s): E87.1 - HYPO-OSMOLALITY AND HYPONATREMIA - Discharge Disposition: Home, Self-Care Condition: Stable Prescriptions: New Amox Tr/Potass Clav. 875 mg [Augmentin 875-125 Tablet] 875 mg PO BID #17 tablet Continue Enalapril Maleate 10 mg [Vasotec 10 MG] 20 mg PO HS Multivitamin [Multi-Vitamin Daily] 1 each PO DAILY Aspirin 81 mg PO DAILY Testosterone Cypionate 1 ml IM UD Duloxetine HCl [Cymbalta] 60 mg PO BID Metformin HCl 500 mg [Glucophage 500 MG] 1,000 mg PO BIDWM Atorvastatin Calcium [Lipitor] 10 mg PO HS Morphine Sulfate Ir 15 mg [Msir 15 mg] 15 mg PO Q6H Omeprazole 20 mg PO HS Mineral Oil 30 ml PO TID Follow up with: ANN ALEXIS MD [Primary Care Provider] -
== END 2022-11-02 13:30 | disposition home or self-care (01) | DRG 75 ==
LOC: ED 12:21 → MED SURG 14:44 → OBSVTOIN 10-29 08:04
PROVIDERS: ADMIT Family Medicine; ATTEND Family Medicine
DX: G03.2 Benign recurrent meningitis [Mollaret] (principal); E87.1 Hypo-osmolality and hyponatremia; J32.9 Chronic sinusitis, unspecified; J02.9 Acute pharyngitis, unspecified; E11.9 Type 2 diabetes mellitus without complications; I10 Essential (primary) hypertension; D72.829 Elevated white blood cell count, unspecified; Z79.899 Other long term (current) drug therapy; Z20.828 Contact with and (suspected) exposure to other viral communicable diseases
CPT/HCPCS: 0241U; 36000; 36415; 80048; 80053; 81015; 82947; 83036; 83605; 85025; 85652; 93268; 94762; 96360; 96365; 96374; 96375; 99285; G0378; J0133; J1170; J1200; J1817; J2930; A9270-GY

== ENCOUNTER 2022-11-28 15:27 | Inpatient (IN) | payer MEDICARE, BC ==
[2022-11-28] MEDS ORDERED: solu-MEDROL 125 MG, Sterile H2O 10 ml 2 ML IV ONE ×2 (16:34)
[2022-11-28] MEDS ORDERED: Sodium Chloride 0.9% 1000 ML 1,000 ML IV SCH (16:45)
[2022-11-28 16:56] LABS: Absolute Neutrophil Ct (ANC) 4.93 x10^3/uL (1.4-6.9); BASOPHIL % 1.2 % (0.0-0.4); Basophil (Absolute #) 0.11 x10^3/uL (0-0.4); Eosinophil % 8.1 % (0.00-5.0); Eosinophil (Absolute #) 0.77 x10^3/uL (0-0.5); Hematocrit 46.3 % (42-50); Hemoglobin 14.7 g/dL (12.5-18.0); IMMATURE GRAN % 1.1 % (0.00-0.4); Lymphocyte (Absolute #) 2.59 x10^3/uL (1.0-4.6); Lymphocytes % 27.2 % (24.0-44.0); Mean Cell Volume 89.9 fL (78-100); Mean Corpuscular Hemoglobin 28.5 pg (26-32); Mean Corpuscular Hgb Concent. 31.7 g/dL (32-36); Mean Platelet Volume 9.1 fL (7.5-11.0); Monocyte (Absolute #) 1.02 x10^3/uL (0.0-1.3); Monocytes % 10.7 % (0.0-12.0); Neutrophil % 51.7 % (36.0-66.0); Platelet Count 517 x10^3/uL (150-450); Red Blood Count 5.15 x10^6/uL (4.1-5.6); Red Cell Distribution Width 17.9 % (11.5-14.0); White Blood Count 9.5 x10^3/uL (4.0-10.5)
[2022-11-28 17:07] LABS: ALBUMIN 4.2 g/dL (3.5-5.0); ALKALINE PHOSPHATASE 77 U/L (38-126); ANION GAP 10.2 MEQ/L (5-15); BLOOD UREA NITROGEN 8 mg/dL (9-20); CHLORIDE 102 mmol/L (98-107); Calcium 8.6 mg/dL (8.4-10.2); Carbon Dioxide 25 mmol/L (22-30); Creatinine 1 0.72 mg/dL (0.66-1.25); EST GLOMERULAR FILTRATION RATE > 60.0 ML/MIN; Glucose 198 mg/dL (74-106); Potassium 4.4 mmol/L (3.5-5.1); SGOT/AST 46 U/L (17-59); SGPT/ALT 33 U/L (0-50); SODIUM 133 mmol/L (137-145); Total Protein 7.2 g/dL (6.3-8.2)
[2022-11-28] MEDS ORDERED: solu-MEDROL ONE (17:22)
[2022-11-28] MEDS ORDERED: Sodium Chloride 0.9% 1000 ML 1,000 ML ONE (17:22)
[2022-11-28] MEDS ORDERED: Sterile H2O 10 ml IJ ONE (17:22)
[2022-11-28] MEDS ORDERED: Hydromorphone 1 mg/ml Injection ONE (17:23)
[2022-11-28 17:29] LABS: INFLUENZA A NEGATIVE (NEGATIVE); INFLUENZA B NEGATIVE (NEGATIVE); RESPIRATORY SYNCTIAL VIRUS NEGATIVE (Negative); SARS-CoV-2 Xpert Express NEGATIVE (NEGATIVE)
[2022-11-28] MEDS ORDERED: Hydromorphone 1 mg/ml Injection IV ONE (17:39)
--- NOTE | 2022-11-28 17:48 | ERPHSYRPT ---
- History of Present Illness Time Seen by Provider: 11/28/22 16:30 Source: patient Exam Limitations: no limitations Patient Subjective Stated Complaint: PT HERE FOR HES CHRONIC NECK PAIN, NO INJURY, HAS TAKEN PAIN MEDS AT HOME Triage Nursing Assessment: PT ALERT, WALKED IN, RESP EASY, SKIN W/D/P, NO EDMEA NOTED, ABLE TO GET UNDRESSED Physician History: Patient is a 52-year-old male with a history of Mollaret's drome with chronic recurrent meningitis. Patient presents today with a recurrence of his chronic symptoms. The symptoms are the same as his typical flareup. Patient experiencing some headache mild neck pain. Patient's flareups are usually treated with acyclovir. No trauma. No fever. No nausea vomiting or diaphoresis. Symptoms are mild to moderate in intensity. No specific worsening improving factors. Patient voices no other complaints or concerns at this time. Portions of this note were created with voice recognition technology. There may be grammatical, spelling, punctuation or sound alike errors Timing/Duration: today Severity: moderate Modifying Factors: Improves With: nothing Associated Symptoms: denies symptoms Allergies/Adverse Reactions: pregabalin [From Lyrica] Adverse Reaction (Severe, Verified 11/28/22 15:33) Hives SOB hives azithromycin [From Zmax] Adverse Reaction (Mild, Verified 11/28/22 15:33) vomiting Home Medications: Aspirin 81 mg PO DAILY 01/24/14 [History] Enalapril Maleate 10 mg [Vasotec 10 MG] 20 mg PO HS 01/24/14 [History] Multivitamin [Multi-Vitamin Daily] 1 each PO DAILY 01/24/14 [History] Testosterone Cypionate 1 ml IM UD 10/09/14 [History] Duloxetine HCl [Cymbalta] 60 mg PO BID 04/23/15 [History] Metformin HCl 500 mg [Glucophage 500 MG] 1,000 mg PO BIDWM 04/20/20 [History] Atorvastatin Calcium [Lipitor] 10 mg PO HS 01/06/22 [History] Morphine Sulfate Ir 15 mg [Msir 15 mg] 15 mg PO Q6H 02/07/22 [History] Omeprazole 20 mg PO HS 07/01/22 [History] Mineral Oil 30 ml PO TID 10/30/22 [History] Hx Tetanus, Diphtheria Vaccination/Date Given: Yes (february 2016) Hx Influenza Vaccination/Date Given: No (Doesn't get one) Hx Pneumococcal Vaccination/Date Given: Yes Immunizations Up to Date: Yes Travel Risk - International Travel Have you traveled outside of the country in past 3 weeks: No - Coronavirus Screening Are you exhibiting any of the following symptoms?: No - Vaccine Status Have you recieved a Covid-19 vaccination: Yes 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 - Review of Systems Constitutional: No Symptoms, No Fever, No Chills Eyes: No Symptoms Ears, Nose, & Throat: No Symptoms Respiratory: No Symptoms, No Cough, No Dyspnea Cardiac: No Symptoms, No Chest Pain, No Edema, No Syncope Abdominal/Gastrointestinal: No Symptoms, No Abdominal Pain, No Nausea, No Vomiting, No Diarrhea Genitourinary Symptoms: No Symptoms, No Dysuria Musculoskeletal: No Symptoms, No Back Pain, No Neck Pain Skin: No Symptoms, No Rash Neurological: No Symptoms, No Dizziness, No Focal Weakness, No Sensory Changes Psychological: No Symptoms Endocrine: No Symptoms Hematologic/Lymphatic: No Symptoms Immunological/Allergic: No Symptoms All Other Systems: Reviewed and Negative - Past Medical History Pertinent Past Medical History: Yes Neurological History: Other ENT History: No Pertinent History Cardiac History: Hypertension Respiratory History: Sleep Apnea Endocrine Medical History: Other Musculoskeletal History: No Pertinent History GI Medical History: GERD History: No Pertinent History Psycho-Social History: Depression Male Reproductive Disorders: No Pertinent History Other Medical History: Mollaret's, spleen removed - Past Surgical History Past Surgical History: Yes Neuro Surgical History: No Pertinent History Cardiac: No Pertinent History Respiratory: No Pertinent History Gastrointestinal: Appendectomy, Other Genitourinary: No Pertinent History Musculoskeletal: No Pertinent History Male Surgical History: Vasectomy Other Surgical History: splenectomy, 2 nasal surgeries - Social History Smoking Status: Never smoker Exposure to second hand smoke: No Alcohol Use: None Drug Use: none Patient Lives Alone: No Significant Family History: no pertinent family hx - Nursing Vital Signs Nursing Vital Signs: Initial Vital Signs Temperature 97.6 F 11/28/22 16:20 Pulse Rate 62 11/28/22 16:20 Respiratory Rate 18 11/28/22 16:20 Blood Pressure 125/104 11/28/22 16:20 O2 Sat by Pulse Oximetry 97 11/28/22 16:20 Pain Scale Pain Intensity 8 - Physical Exam General Appearance: no apparent distress, alert Eye Exam: PERRL/EOMI, eyes nml inspection Ears, Nose, Throat Exam: normal ENT inspection, TMs normal, pharynx normal, moist mucous membranes Neck Exam: normal inspection, non-tender, supple, full range of motion Respiratory Exam: normal breath sounds, lungs clear, airway intact, No respiratory distress Cardiovascular Exam: regular rate/rhythm, normal heart sounds, normal peripheral pulses Gastrointestinal/Abdomen Exam: soft, normal bowel sounds, No tenderness, No mass Back Exam: normal inspection, normal range of motion, No CVA tenderness, No vertebral tenderness Extremity Exam: normal inspection, normal range of motion, pelvis stable Neurologic Exam: alert, oriented x 3, cooperative, normal mood/affect, nml c erebellar function, nml station & gait, sensation nml, No motor deficits Skin Exam: normal color, warm, dry, No rash Lymphatic Exam: No adenopathy SpO2 Interpretation: normal SpO2: 97 O2 Delivery: Room Air - Course Nursing assessment & vital signs reviewed: Yes Ordered Tests: Active Orders 24 hr Category Date Time Status Crystallography Teacher STAT Care 11/28/22 16:32 Active IV Insertion STAT Care 11/28/22 16:31 Active Pulse Oximetry (ED) STAT Care 11/28/22 16:31 Active BLOOD CULTURE Stat Lab 11/28/22 16:45 Received CBC W DIFF Stat Lab 11/28/22 16:40 Completed CMP Stat Lab 11/28/22 16:40 Completed Lactic Acid Stat Lab 11/28/22 16:31 Completed Transfer Order Routine Transfer 11/28/22 Ordered Medication Summary Generic Name Dose Route Start Last Admin Trade Name Freq PRN Reason Stop Dose Admin Sodium Chloride 1,000 mls @ 100 mls/hr 11/28/22 16:45 11/28/22 17:24 Sodium Chloride 0.9% 1000 Ml IV 12/28/22 16:44 100 mls/hr .Q10H GLENNA Administration Acyclovir Sodium 1,000 mg/ 250 mls @ 166.667 mls/hr 11/28/22 18:00 11/28/22 17:26 Sodium Chloride IV 12/28/22 17:59 166.667 mls/hr Q8H GLENNA Administration Discontinued Medications Generic Name Dose Route Start Last Admin Trade Name Freq PRN Reason Stop Dose Admin Methylprednisolone Sodium 0 mg 11/28/22 16:34 11/28/22 17:24 Succinate 125 mg/ Sterile IV 11/28/22 16:35 125 mg Water 2 ml STAT ONE Administration Hydromorphone HCl Confirm 11/28/22 17:23 Hydromorphone 1 Mg/1ml Inj 1 Mg/Ml Syringe Administered 11/28/22 17:24 Dose 1 mg .ROUTE .STK-MED ONE Hydromorphone HCl 1 mg 11/28/22 17:39 11/28/22 17:42 Hydromorphone 1 Mg/1ml Inj 1 Mg/Ml Syringe IV 11/28/22 17:40 1 mg STAT ONE Administration Methylprednisolone Sodium Succinate Confirm 11/28/22 17:22 Methylprednis Sod Succ 125 Mg/2 Ml Vial Administered 11/28/22 17:23 Dose 125 mg .ROUTE .STK-MED ONE Sterile Water Confirm 11/28/22 17:22 Water For Injection,Sterile 10 Ml Vial Administered 11/28/22 17:23 Dose 10 ml IJ .STK-MED ONE Lab/Rad Data: Laboratory Result Diagrams 11/28/22 16:40 11/28/22 16:40 Laboratory Results 11/28/22 11/28/22 11/28/22 Range/Units 16:45 16:40 16:40 WBC 9.5 (4.0-10.5) x10^3/uL RBC 5.15 (4.1-5.6) x10^6/uL Hgb 14.7 (12.5-18.0) g/dL Hct 46.3 (42-50) % MCV 89.9 (78-100) fL MCH 28.5 (26-32) pg MCHC 31.7 L (32-36) g/dL RDW 17.9 H (11.5-14.0) % Plt Count 517 H (150-450) x10^3/uL MPV 9.1 (7.5-11.0) fL Gran % 51.7 (36.0-66.0) % Immature Gran % (Auto) 1.1 H (0.00-0.4) % Nucleat RBC Rel Count 0.0 (0.00-0.1) % Eos # (Auto) 0.77 H (0-0.5) x10^3/uL Immature Gran # (Auto) 0.10 H (0.00-0.03) x10^3u/L Absolute Lymphs (auto) 2.59 (1.0-4.6) x10^3/uL Absolute Monos (auto) 1.02 (0.0-1.3) x10^3/uL Absolute Nucleated RBC 0.00 (0.00-0.01) x10^3u/L Lymphocytes % 27.2 (24.0-44.0) % Monocytes % 10.7 (0.0-12.0) % Eosinophils % 8.1 H (0.00-5.0) % Basophils % 1.2 (0.0-0.4) % Absolute Granulocytes 4.93 (1.4-6.9) x10^3/uL Basophils # 0.11 (0-0.4) x10^3/uL Sodium 133 L (137-145) mmol/L Potassium 4.4 (3.5-5.1) mmol/L Chloride 102 (98-107) mmol/L Carbon Dioxide 25 (22-30) mmol/L Anion Gap 10.2 (5-15) MEQ/L BUN 8 L (9-20) mg/dL Creatinine 0.72 (0.66-1.25) mg/dL Estimated GFR > 60.0 ML/MIN Glucose 198 H (74-106) mg/dL Lactic Acid (0.4-2.0) Calcium 8.6 (8.4-10.2) mg/dL Total Bilirubin 0.50 (0.2-1.3) mg/dL AST 46 (17-59) U/L ALT 33 (0-50) U/L Alkaline Phosphatase 77 (38-126) U/L Serum Total Protein 7.2 (6.3-8.2) g/dL Albumin 4.2 (3.5-5.0) g/dL Influenza Type A Ag NEGATIVE (NEGATIVE) Influenza Type B Ag NEGATIVE (NEGATIVE) RSV (PCR) NEGATIVE (Negative) SARS-CoV-2 (PCR) NEGATIVE (NEGATIVE) 11/28/22 Range/Units 16:31 WBC (4.0-10.5) x10^3/uL RBC (4.1-5.6) x10^6/uL Hgb (12.5-18.0) g/dL Hct (42-50) % MCV (78-100) fL MCH (26-32) pg MCHC (32-36) g/dL RDW (11.5-14.0) % Plt Count (150-450) x10^3/uL MPV (7.5-11.0) fL Gran % (36.0-66.0) % Immature Gran % (Auto) (0.00-0.4) % Nucleat RBC Rel Count (0.00-0.1) % Eos # (Auto) (0-0.5) x10^3/uL Immature Gran # (Auto) (0.00-0.03) x10^3u/L Absolute Lymphs (auto) (1.0-4.6) x10^3/uL Absolute Monos (auto) (0.0-1.3) x10^3/uL Absolute Nucleated RBC (0.00-0.01) x10^3u/L Lymphocytes % (24.0-44.0) % Monocytes % (0.0-12.0) % Eosinophils % (0.00-5.0) % Basophils % (0.0-0.4) % Absolute Granulocytes (1.4-6.9) x10^3/uL Basophils # (0-0.4) x10^3/uL Sodium (137-145) mmol/L Potassium (3.5-5.1) mmol/L Chloride (98-107) mmol/L Carbon Dioxide (22-30) mmol/L Anion Gap (5-15) MEQ/L BUN (9-20) mg/dL Creatinine (0.66-1.25) mg/dL Estimated GFR ML/MIN Glucose (74-106) mg/dL Lactic Acid 2.4 H (0.4-2.0) Calcium (8.4-10.2) mg/dL Total Bilirubin (0.2-1.3) mg/dL AST (17-59) U/L ALT (0-50) U/L Alkaline Phosphatase (38-126) U/L Serum Total Protein (6.3-8.2) g/dL Albumin (3.5-5.0) g/dL Influenza Type A Ag (NEGATIVE) Influenza Type B Ag (NEGATIVE) RSV (PCR) (Negative) SARS-CoV-2 (PCR) (NEGATIVE) - Progress Progress: improved Progress Note: Patient is a 52-year-old male presents to our ED for evaluation of a 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 Patient's symptoms are typical of his usual flareup with headache and neck pain. This is a form of chronic recurrent meningitis. Physical examination is essentially nonremarkable. Patient's symptom is acute on chronic. Complexity of symptoms is moderate. No significant comorbidities to complicate patient's current symptoms. Work-up includes CBC CMP blood culture COVID and UA. COVID test negative. Case discussed with Dr. 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 Results of studies were evaluated and contributed to my medical decision making. Patient symptoms significantly improved after administration of [place] phone. Patient agrees to admission at [facility] for further evaluation and treatment. Level of EM service provided is moderate. Complexity of the problem addressed is moderate. Complexity of data reviewed and analyzed is moderate. Risk of complications and/or risk of morbidity/mortality of patient management is moderate. No critical care time. Patient serves as an independent historian. Patient is full code. Time spent for completion of disposition is approximately 15 minutes. Patient will be admitted to [facility] in stable condition. Portions of this note were created with voice recognition technology. There may be grammatical, spelling, punctuation or sound alike errors 11/28/22 18:[address] Ivory Will see patient in: hospital (observation) Counseled pt/family regarding: lab results, diagnosis, rad results - Departure Departure Disposition: Observation Clinical Impression: Mollaret's meningitis, Thrombocytosis, Hyperglycemia, Lactic acidosis Condition: Stable Critical Care Time: No Referrals: ANN ALEXIS MD [Primary Care Provider] - Follow up/PCP as directed
[2022-11-28] MEDS ORDERED: SODIUM CHLORIDE 0.9% IV SCH ×2 (18:00→18:13)
[2022-11-28] MEDS ORDERED: ZOVIRAX IV SCH ×2 (18:00→18:13)
[2022-11-28] MEDS ORDERED: TYLENOL 325 MG PO PRN (18:13)
[2022-11-28] MEDS ORDERED: solu-CORTEF 100MG IV SCH (18:13)
[2022-11-28] MEDS ORDERED: DILAUDID 1 MG/1ML PCA SYRINGE IV PRN (18:41)
[2022-11-28] MEDS: Sodium Chloride 0.9% 1000 ML 1,000 ML IV SCH (19:59)
[2022-11-28] MEDS: Protonix 40MG Tablet PO SCH (21:48)
[2022-11-28] MEDS: Vasotec 10 MG PO SCH (21:48)
[2022-11-28] MEDS: HUMALOG SQ PRN (21:48)
[2022-11-28] MEDS: Zocor 10MG PO SCH (21:48)
[2022-11-28] MEDS: Cymbalta 30 MG Capsule PO SCH (21:48)
[2022-11-28] MEDS: MINERAL OIL PO SCH (21:50)
[2022-11-28] MEDS: MSIR 15 MG PO SCH (23:52)
[2022-11-29] MEDS: solu-CORTEF 100MG IV SCH ×3 (01:10→17:03)
[2022-11-29] MEDS: ZOVIRAX IV SCH ×3 (01:30→18:02)
[2022-11-29] MEDS: SODIUM CHLORIDE 0.9% IV SCH ×3 (01:30→18:02)
[2022-11-29] MEDS ORDERED: Sterile H2O 10 ml IJ ONE (01:44)
[2022-11-29] MEDS: MSIR 15 MG PO SCH ×3 (05:57→18:01)
[2022-11-29] MEDS: Sodium Chloride 0.9% 1000 ML 1,000 ML IV SCH ×2 (06:07→17:41)
[2022-11-29 06:23] LABS: Absolute Neutrophil Ct (ANC) 8.32 x10^3/uL (1.4-6.9); BASOPHIL % 0.3 % (0.0-0.4); Basophil (Absolute #) 0.03 x10^3/uL (0-0.4); Eosinophil (Absolute #) 0 x10^3/uL (0-0.5); Hematocrit 43.9 % (42-50); Hemoglobin 13.7 g/dL (12.5-18.0); Lymphocyte (Absolute #) 1.14 x10^3/uL (1.0-4.6); Lymphocytes % 11.5 % (24.0-44.0); Mean Cell Volume 90.3 fL (78-100); Mean Corpuscular Hemoglobin 28.2 pg (26-32); Mean Corpuscular Hgb Concent. 31.2 g/dL (32-36); Mean Platelet Volume 9.3 fL (7.5-11.0); Monocyte (Absolute #) 0.29 x10^3/uL (0.0-1.3); Monocytes % 2.9 % (0.0-12.0); Neutrophil % 84.3 % (36.0-66.0); Platelet Count 509 x10^3/uL (150-450); Red Blood Count 4.86 x10^6/uL (4.1-5.6); Red Cell Distribution Width 17.6 % (11.5-14.0); White Blood Count 9.9 x10^3/uL (4.0-10.5)
[2022-11-29 06:51] LABS: ALBUMIN 4.1 g/dL (3.5-5.0); ALKALINE PHOSPHATASE 97 U/L (38-126); ANION GAP 13.8 MEQ/L (5-15); BLOOD UREA NITROGEN 11 mg/dL (9-20); CHLORIDE 103 mmol/L (98-107); Calcium 8.7 mg/dL (8.4-10.2); Carbon Dioxide 22 mmol/L (22-30); EST GLOMERULAR FILTRATION RATE > 60.0 ML/MIN; Glucose 298 mg/dL (74-106); Potassium 4.3 mmol/L (3.5-5.1); SGOT/AST 29 U/L (17-59); SGPT/ALT 32 U/L (0-50); SODIUM 134 mmol/L (137-145); Total Protein 6.8 g/dL (6.3-8.2)
[2022-11-29] MEDS: HUMALOG SQ PRN ×4 (07:52→21:30)
[2022-11-29] MEDS: ECOTRIN 81 MG PO SCH (07:53)
[2022-11-29] MEDS: Cymbalta 30 MG Capsule PO SCH ×2 (07:53→21:14)
[2022-11-29] MEDS: THERAGRAN MULTIVITAMIN PO SCH (07:54)
[2022-11-29] MEDS: MINERAL OIL PO SCH ×3 (07:54→21:14)
[2022-11-29] MEDS: HYDROMORPHONE 30 MG/30 ML-NS PCA IV PRN (09:28)
[2022-11-29] MEDS ORDERED: NON-FORMULARY ITEM (Aspirin [Aspirin] 81 MG Tablet) PO SCH (10:00)
[2022-11-29] MEDS ORDERED: NON-FORMULARY ITEM (Multivitamin [Multi-Vitamin Daily] 1 EACH Tablet) PO SCH (10:00)
--- NOTE | 2022-11-29 10:45 | PCM.HP ---
History of Present Illness - Chief Complaint Chief Complaint: MOLLARET'S SYNDROME, CHRONIC RECURRENT MENINGITIS History of Present Illness: is a 52 year old male with Mollaret's syndrome, he presented with intractable head and neck pain, the last few exacerbations have been associated with upper leg pain as well. He has no confusion, no focal neuro deficits and no fever. - Review of Systems Constitutional: No Fever, No Chills Respiratory: No Cough, No Short Of Breath Cardiac: No Chest Pain, No Edema, No Syncope Neurological: Headache, No Paralysis, No Sensory Changes, No Speech Changes Psychological: No Symptoms All Other Systems: Reviewed and Negative Medications & Allergies Home Medications: Home Medication List Aspirin 81 mg PO DAILY 01/24/14 [History Confirmed 11/28/22] Enalapril Maleate 10 mg [Vasotec 10 MG] 20 mg PO HS 01/24/14 [History Confirmed 11/28/22] Multivitamin [Multi-Vitamin Daily] 1 each PO DAILY 01/24/14 [History Confirmed 11/28/22] Testosterone Cypionate 1 ml IM UD 10/09/14 [History Confirmed 11/28/22] Duloxetine HCl [Cymbalta] 60 mg PO BID 04/23/15 [History Confirmed 11/28/22] Metformin HCl 500 mg [Glucophage 500 MG] 1,000 mg PO BIDWM 04/20/20 [History Confirmed 11/28/22] Atorvastatin Calcium [Lipitor] 10 mg PO HS 01/06/22 [History Confirmed 11/28/22] Morphine Sulfate Ir 15 mg [Msir 15 mg] 15 mg PO 0600,1200,1800,0000 02/07/22 [History Confirmed 11/28/22] Omeprazole 20 mg PO HS 07/01/22 [History Confirmed 11/28/22] Mineral Oil 30 ml PO TID 10/30/22 [History Confirmed 11/28/22] Allergies/Adverse Reactions: Allergies Allergy/AdvReac Type Severity Reaction Status Date / Time pregabalin [From Lyrica] AdvReac Severe Hives Verified 11/28/22 15:33 azithromycin [From Zmax] AdvReac Mild Verified 11/28/22 15:33 - Past Medical History Past Medical History: Yes Neurological History: Other ENT History: No Pertinent History Cardiac History: Hypertension Respiratory History: Sleep Apnea Endocrine Medical History: Other Musculoskelatal History: No Pertinent History GI Medical History: GERD History: No Pertinent History Pyscho-Social History: Depression Male Reproductive Disorders: No Pertinent History Comment: Mollaret's, spleen removed - Past Surgical History Past Surgical History: Yes Neuro Surgical History: No Pertinent History Cardiac History: No Pertinent History Respiratory Surgery: No Pertinent History GI Surgical History: Appendectomy, Other Genitourinary Surgical Hx: No Pertinent History Musculskeletal Surgical Hx: No Pertinent History Male Surgical History: Vasectomy Other Surgical History: splenectomy, 2 nasal surgeries - Social History Smoking Status: Never smoker Exposure to second hand smoke: No Alcohol: None Drug Use: none Significant Family History: no pertinent family hx - Physical Exam Vital Signs: Vital Signs - 24 hr Temp Pulse Resp BP Pulse Ox 11/29/22 09:28 20 99 11/29/22 08:20 97 11/29/22 07:21 97.9 F 106 H 16 114/75 96 11/29/22 03:57 98.0 F 125 H 20 102/65 97 11/29/22 02:55 16 96 11/28/22 23:56 97.7 F 117 H 18 123/72 96 11/28/22 22:55 20 96 11/28/22 19:40 94 L 11/28/22 18:55 20 95 11/28/22 18:16 98.0 F 92 H 20 138/82 94 L 11/28/22 18:13 95 11/28/22 18:11 97 11/28/22 17:51 94 H 18 156/75 96 11/28/22 16:35 97 11/28/22 16:20 97.6 F 62 18 125/104 97 General Appearance: no apparent distress, obese Neurologic Exam: alert, oriented x 3, cooperative, digital photographic printer II-XII nml as tested, No motor deficits, No sensory deficit Respiratory Exam: normal breath sounds, lungs clear, No respiratory distress Cardiovascular Exam: regular rate/rhythm, normal heart sounds, normal peripheral pulses Gastrointestinal/Abdomen Exam: soft, normal bowel sounds, No tenderness, No mass Extremity Exam: normal inspection, normal range of motion, pelvis stable Skin Exam: normal color, warm, dry, No rash Results - Labs Lab/Micro Results: Lab Results-Last 24 Hours 11/28/22 11/28/2223 Range/Units 16:31 16:40 16:40 WBC 9.5 (4.0-10.5) x10^3/uL RBC 5.15 (4.1-5.6) x10^6/uL Hgb 14.7 (12.5-18.0) g/dL Hct 46.3 (42-50) % MCV 89.9 (78-100) fL MCH 28.5 (26-32) pg MCHC 31.7 L (32-36) g/dL RDW 17.9 H (11.5-14.0) % Plt Count 517 H (150-450) x10^3/uL MPV 9.1 (7.5-11.0) fL Gran % 51.7 (36.0-66.0) % Immature Gran % (Auto) 1.1 H (0.00-0.4) % Nucleat RBC Rel Count 0.0 (0.00-0.1) % Eos # (Auto) 0.77 H (0-0.5) x10^3/uL Immature Gran # (Auto) 0.10 H (0.00-0.03) x10^3u/L Absolute Lymphs (auto) 2.59 (1.0-4.6) x10^3/uL Absolute Monos (auto) 1.02 (0.0-1.3) x10^3/uL Absolute Nucleated RBC 0.00 (0.00-0.01) x10^3u/L Lymphocytes % 27.2 (24.0-44.0) % Monocytes % 10.7 (0.0-12.0) % Eosinophils % 8.1 H (0.00-5.0) % Basophils % 1.2 (0.0-0.4) % Absolute Granulocytes 4.93 (1.4-6.9) x10^3/uL Basophils # 0.11 (0-0.4) x10^3/uL Sodium 133 L (137-145) mmol/L Potassium 4.4 (3.5-5.1) mmol/L Chloride 102 (98-107) mmol/L Carbon Dioxide 25 (22-30) mmol/L Anion Gap 10.2 (5-15) MEQ/L BUN 8 L (9-20) mg/dL Creatinine 0.72 (0.66-1.25) mg/dL Estimated GFR > 60.0 ML/MIN Glucose 198 H (74-106) mg/dL POC Glucometer (74 to 106) mg/dL Lactic Acid 2.4 H (0.4-2.0) Calcium 8.6 (8.4-10.2) mg/dL Total Bilirubin 0.50 (0.2-1.3) mg/dL AST 46 (17-59) U/L ALT 33 (0-50) U/L Alkaline Phosphatase 77 (38-126) U/L Serum Total Protein 7.2 (6.3-8.2) g/dL Albumin 4.2 (3.5-5.0) g/dL Influenza Type A Ag (NEGATIVE) Influenza Type B Ag (NEGATIVE) RSV (PCR) (Negative) SARS-CoV-2 (PCR) (NEGATIVE) 11/28/22 11/28/22 11/28/22 Range/Units 16:45 18:52 21:32 WBC (4.0-10.5) x10^3/uL RBC (4.1-5.6) x10^6/uL Hgb (12.5-18.0) g/dL Hct (42-50) % MCV (78-100) fL MCH (26-32) pg MCHC (32-36) g/dL RDW (11.5-14.0) % Plt Count (150-450) x10^3/uL MPV (7.5-11.0) fL Gran % (36.0-66.0) % Immature Gran % (Auto) (0.00-0.4) % Nucleat RBC Rel Count (0.00-0.1) % Eos # (Auto) (0-0.5) x10^3/uL Immature Gran # (Auto) (0.00-0.03) x10^3u/L Absolute Lymphs (auto) (1.0-4.6) x10^3/uL Absolute Monos (auto) (0.0-1.3) x10^3/uL Absolute Nucleated RBC (0.00-0.01) x10^3u/L Lymphocytes % (24.0-44.0) % Monocytes % (0.0-12.0) % Eosinophils % (0.00-5.0) % Basophils % (0.0-0.4) % Absolute Granulocytes (1.4-6.9) x10^3/uL Basophils # (0-0.4) x10^3/uL Sodium (137-145) mmol/L Potassium (3.5-5.1) mmol/L Chloride (98-107) mmol/L Carbon Dioxide (22-30) mmol/L Anion Gap (5-15) MEQ/L BUN (9-20) mg/dL Creatinine (0.66-1.25) mg/dL Estimated GFR ML/MIN Glucose (74-106) mg/dL POC Glucometer 243 H (74 to 106) mg/dL Lactic Acid 0.9 (0.4-2.0) Calcium (8.4-10.2) mg/dL Total Bilirubin (0.2-1.3) mg/dL AST (17-59) U/L ALT (0-50) U/L Alkaline Phosphatase (38-126) U/L Serum Total Protein (6.3-8.2) g/dL Albumin (3.5-5.0) g/dL Influenza Type A Ag NEGATIVE (NEGATIVE) Influenza Type B Ag NEGATIVE (NEGATIVE) RSV (PCR) NEGATIVE (Negative) SARS-CoV-2 (PCR) NEGATIVE (NEGATIVE) 11/29/22 11/29/22 11/29/22 Range/Units 06:00 06:05 06:57 WBC 9.9 (4.0-10.5) x10^3/uL RBC 4.86 (4.1-5.6) x10^6/uL Hgb 13.7 (12.5-18.0) g/dL Hct 43.9 (42-50) % MCV 90.3 (78-100) fL MCH 28.2 (26-32) pg MCHC 31.2 L (32-36) g/dL RDW 17.6 H (11.5-14.0) % Plt Count 509 H (150-450) x10^3/uL MPV 9.3 (7.5-11.0) fL Gran % 84.3 H (36.0-66.0) % Immature Gran % (Auto) 1.0 H (0.00-0.4) % Nucleat RBC Rel Count 0.0 (0.00-0.1) % Eos # (Auto) 0 (0-0.5) x10^3/uL Immature Gran # (Auto) 0.10 H (0.00-0.03) x10^3u/L Absolute Lymphs (auto) 1.14 (1.0-4.6) x10^3/uL Absolute Monos (auto) 0.29 (0.0-1.3) x10^3/uL Absolute Nucleated RBC 0.00 (0.00-0.01) x10^3u/L Lymphocytes % 11.5 L (24.0-44.0) % Monocytes % 2.9 (0.0-12.0) % Eosinophils % 0.0 (0.00-5.0) % Basophils % 0.3 (0.0-0.4) % Absolute Granulocytes 8.32 H (1.4-6.9) x10^3/uL Basophils # 0.03 (0-0.4) x10^3/uL Sodium 134 L (137-145) mmol/L Potassium 4.3 (3.5-5.1) mmol/L Chloride 103 (98-107) mmol/L Carbon Dioxide 22 (22-30) mmol/L Anion Gap 13.8 (5-15) MEQ/L BUN 11 (9-20) mg/dL Creatinine 0.70 (0.66-1.25) mg/dL Estimated GFR > 60.0 ML/MIN Glucose 298 H (74-106) mg/dL POC Glucometer 227 H (74 to 106) mg/dL Lactic Acid (0.4-2.0) Calcium 8.7 (8.4-10.2) mg/dL Total Bilirubin 0.30 (0.2-1.3) mg/dL AST 29 (17-59) U/L ALT 32 (0-50) U/L Alkaline Phosphatase 97 (38-126) U/L Serum Total Protein 6.8 (6.3-8.2) g/dL Albumin 4.1 (3.5-5.0) g/dL Influenza Type A Ag (NEGATIVE) Influenza Type B Ag (NEGATIVE) RSV (PCR) (Negative) SARS-CoV-2 (PCR) (NEGATIVE) Accuchecks Date 11/29/22 Time 07:19 Assessment/Plan (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 Assessment & Plan: IV acycvlovir, solu cortef, fluids and DIRECT MARKETING INTERN are ordered Code(s): G03.2 - BENIGN RECURRENT MENINGITIS [MOLLARET] (2) Cephalgia Current Visit: No Status: Acute Onset Date: ~11/01/18 Code(s): R51 - HEADACHE * DO NOT USE * (3) Chronic pain syndrome Current Visit: No Status: Acute Code(s): G89.4 - CHRONIC PAIN SYNDROME
[2022-11-29] MEDS: Protonix 40MG Tablet PO SCH (21:15)
[2022-11-29] MEDS: Zocor 10MG PO SCH (21:15)
[2022-11-29] MEDS: Vasotec 10 MG PO SCH (21:15)
[2022-11-30] MEDS: MSIR 15 MG PO SCH ×5 (00:06→23:36)
[2022-11-30] MEDS: solu-CORTEF 100MG IV SCH ×4 (00:07→23:41)
[2022-11-30] MEDS: HYDROMORPHONE 30 MG/30 ML-NS PCA IV PRN ×3 (02:12→20:28)
[2022-11-30] MEDS: BENADRYL 50 MG/ML IV PRN ×2 (02:19→21:09)
[2022-11-30] MEDS: ZOVIRAX IV SCH ×3 (02:19→18:06)
[2022-11-30] MEDS: SODIUM CHLORIDE 0.9% IV SCH ×3 (02:19→18:06)
[2022-11-30] MEDS: Sodium Chloride 0.9% 1000 ML 1,000 ML IV SCH ×3 (06:07→21:47)
[2022-11-30 06:10] LABS: Absolute Neutrophil Ct (ANC) 7.31 x10^3/uL (1.4-6.9); BASOPHIL % 0.4 % (0.0-0.4); Basophil (Absolute #) 0.04 x10^3/uL (0-0.4); Eosinophil % 0.2 % (0.00-5.0); Eosinophil (Absolute #) 0.02 x10^3/uL (0-0.5); Hematocrit 41.8 % (42-50); Hemoglobin 12.9 g/dL (12.5-18.0); IMMATURE GRAN # 0.09 x10^3u/L (0.00-0.03); IMMATURE GRAN % 0.8 % (0.00-0.4); Lymphocyte (Absolute #) 2.41 x10^3/uL (1.0-4.6); Lymphocytes % 22.5 % (24.0-44.0); Mean Cell Volume 91.7 fL (78-100); Mean Corpuscular Hemoglobin 28.3 pg (26-32); Mean Corpuscular Hgb Concent. 30.9 g/dL (32-36); Mean Platelet Volume 9.3 fL (7.5-11.0); Monocyte (Absolute #) 0.82 x10^3/uL (0.0-1.3); Monocytes % 7.7 % (0.0-12.0); Neutrophil % 68.4 % (36.0-66.0); Platelet Count 488 x10^3/uL (150-450); Red Blood Count 4.56 x10^6/uL (4.1-5.6); Red Cell Distribution Width 17.9 % (11.5-14.0); White Blood Count 10.7 x10^3/uL (4.0-10.5)
[2022-11-30 06:43] LABS: ALBUMIN 3.9 g/dL (3.5-5.0); ALKALINE PHOSPHATASE 93 U/L (38-126); ANION GAP 9.1 MEQ/L (5-15); BLOOD UREA NITROGEN 9 mg/dL (9-20); CHLORIDE 105 mmol/L (98-107); Calcium 8.1 mg/dL (8.4-10.2); Carbon Dioxide 28 mmol/L (22-30); Creatinine 1 0.68 mg/dL (0.66-1.25); EST GLOMERULAR FILTRATION RATE > 60.0 ML/MIN; Glucose 208 mg/dL (74-106); Potassium 4.3 mmol/L (3.5-5.1); SGOT/AST 24 U/L (17-59); SGPT/ALT 27 U/L (0-50); SODIUM 138 mmol/L (137-145); Total Protein 6.5 g/dL (6.3-8.2)
[2022-11-30] MEDS ORDERED: Sterile H2O 10 ml IJ ONE ×2 (07:47→15:53)
[2022-11-30] MEDS ORDERED: Artificial Tears 15 ML OP PRN (10:07)
--- NOTE | 2022-11-30 10:07 | PCM.NOTE ---
Date and Time: 11/30/22 1006 Subjective Assessment: some improvement, still severe head and neck pain and difficulty resting c/o dry eyes Objective Exam General Appearance: obese Neurologic Exam: alert, oriented x 3 Respiratory Exam: normal breath sounds, lungs clear, No respiratory distress Cardiovascular Exam: regular rate/rhythm, normal heart sounds Gastrointestinal/Abdomen Exam: soft, No tenderness, No mass OBJECTIVE DATA Vital Signs: Vital Signs - 24 hr Temp Pulse Resp BP Pulse Ox 11/30/22 08:15 98 11/30/22 07:42 97.3 F 79 18 130/86 99 11/30/22 06:01 12 96 11/30/22 04:00 112 H 96 11/30/22 02:12 20 98 11/30/22 00:00 97.7 F 97 H 18 131/69 99 11/29/22 20:00 98.0 F 104 H 19 134/78 97 11/29/22 19:05 98 11/29/22 16:00 97.0 F 96 H 18 135/89 97 11/29/22 11:53 97.9 F 112 H 16 126/87 98 Pain Assessment - Last Documented Pain Intensity 8 Pain Scale Used 0-10 Pain Scale Intake and Output: Intake & Output 11/27/22 11/28/22 11/29/22 11/30/22 11:59 11:59 11:59 11:59 Intake Total 6203 5217 Output Total 4000 6050 Balance 2203 -833 Weight 110.1 kg Lab Results: Lab Results-Last 24 Hours 11/29/22 11/29/22 11/29/22 Range/Units 11:45 16:28 21:20 WBC (4.0-10.5) x10^3/uL RBC (4.1-5.6) x10^6/uL Hgb (12.5-18.0) g/dL Hct (42-50) % MCV (78-100) fL MCH (26-32) pg MCHC (32-36) g/dL RDW (11.5-14.0) % Plt Count (150-450) x10^3/uL MPV (7.5-11.0) fL Gran % (36.0-66.0) % Immature Gran % (Auto) (0.00-0.4) % Nucleat RBC Rel Count (0.00-0.1) % Eos # (Auto) (0-0.5) x10^3/uL Immature Gran # (Auto) (0.00-0.03) x10^3u/L Absolute Lymphs (auto) (1.0-4.6) x10^3/uL Absolute Monos (auto) (0.0-1.3) x10^3/uL Absolute Nucleated RBC (0.00-0.01) x10^3u/L Lymphocytes % (24.0-44.0) % Monocytes % (0.0-12.0) % Eosinophils % (0.00-5.0) % Basophils % (0.0-0.4) % Absolute Granulocytes (1.4-6.9) x10^3/uL Basophils # (0-0.4) x10^3/uL Sodium (137-145) mmol/L Potassium (3.5-5.1) mmol/L Chloride (98-107) mmol/L Carbon Dioxide (22-30) mmol/L Anion Gap (5-15) MEQ/L BUN (9-20) mg/dL Creatinine (0.66-1.25) mg/dL Estimated GFR ML/MIN Glucose (74-106) mg/dL POC Glucometer 343 H 233 H 288 H (74 to 106) mg/dL Calcium (8.4-10.2) mg/dL Total Bilirubin (0.2-1.3) mg/dL AST (17-59) U/L ALT (0-50) U/L Alkaline Phosphatase (38-126) U/L Serum Total Protein (6.3-8.2) g/dL Albumin (3.5-5.0) g/dL 11/30/22 11/30/22 11/30/22 Range/Units 05:50 05:50 07:39 WBC 10.7 H (4.0-10.5) x10^3/uL RBC 4.56 (4.1-5.6) x10^6/uL Hgb 12.9 (12.5-18.0) g/dL Hct 41.8 L (42-50) % MCV 91.7 (78-100) fL MCH 28.3 (26-32) pg MCHC 30.9 L (32-36) g/dL RDW 17.9 H (11.5-14.0) % Plt Count 488 H (150-450) x10^3/uL MPV 9.3 (7.5-11.0) fL Gran % 68.4 H (36.0-66.0) % Immature Gran % (Auto) 0.8 H (0.00-0.4) % Nucleat RBC Rel Count 0.0 (0.00-0.1) % Eos # (Auto) 0.02 (0-0.5) x10^3/uL Immature Gran # (Auto) 0.09 H (0.00-0.03) x10^3u/L Absolute Lymphs (auto) 2.41 (1.0-4.6) x10^3/uL Absolute Monos (auto) 0.82 (0.0-1.3) x10^3/uL Absolute Nucleated RBC 0.00 (0.00-0.01) x10^3u/L Lymphocytes % 22.5 L (24.0-44.0) % Monocytes % 7.7 (0.0-12.0) % Eosinophils % 0.2 (0.00-5.0) % Basophils % 0.4 (0.0-0.4) % Absolute Granulocytes 7.31 H (1.4-6.9) x10^3/uL Basophils # 0.04 (0-0.4) x10^3/uL Sodium 138 (137-145) mmol/L Potassium 4.3 (3.5-5.1) mmol/L Chloride 105 (98-107) mmol/L Carbon Dioxide 28 (22-30) mmol/L Anion Gap 9.1 (5-15) MEQ/L BUN 9 (9-20) mg/dL Creatinine 0.68 (0.66-1.25) mg/dL Estimated GFR > 60.0 ML/MIN Glucose 208 H (74-106) mg/dL POC Glucometer 162 H (74 to 106) mg/dL Calcium 8.1 L (8.4-10.2) mg/dL Total Bilirubin 0.20 (0.2-1.3) mg/dL AST 24 (17-59) U/L ALT 27 (0-50) U/L Alkaline Phosphatase 93 (38-126) U/L Serum Total Protein 6.5 (6.3-8.2) g/dL Albumin 3.9 (3.5-5.0) g/dL Assessment/Plan (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
[2022-11-30] MEDS: ECOTRIN 81 MG PO SCH (10:11)
[2022-11-30] MEDS: THERAGRAN MULTIVITAMIN PO SCH (10:11)
[2022-11-30] MEDS: Cymbalta 30 MG Capsule PO SCH ×2 (10:11→21:09)
[2022-11-30] MEDS: MINERAL OIL PO SCH ×3 (10:12→21:09)
[2022-11-30] MEDS ORDERED: Artificial Tears 15 ML OP ONE (15:35)
[2022-11-30] MEDS: Protonix 40MG Tablet PO SCH (21:08)
[2022-11-30] MEDS: Vasotec 10 MG PO SCH (21:09)
[2022-11-30] MEDS: Zocor 10MG PO SCH (21:09)
[2022-11-30] MEDS: HUMALOG SQ PRN (21:55)
[2022-12-01] MEDS: SODIUM CHLORIDE 0.9% IV SCH ×3 (01:52→18:15)
[2022-12-01] MEDS: ZOVIRAX IV SCH ×3 (01:52→18:15)
[2022-12-01] MEDS: MSIR 15 MG PO SCH ×4 (05:00→23:59)
[2022-12-01 05:54] LABS: Absolute Neutrophil Ct (ANC) 7.21 x10^3/uL (1.4-6.9); BASOPHIL % 0.9 % (0.0-0.4); Basophil (Absolute #) 0.09 x10^3/uL (0-0.4); Eosinophil % 0.3 % (0.00-5.0); Eosinophil (Absolute #) 0.03 x10^3/uL (0-0.5); Hematocrit 41.5 % (42-50); IMMATURE GRAN # 0.18 x10^3u/L (0.00-0.03); IMMATURE GRAN % 1.7 % (0.00-0.4); Lymphocytes % 22.9 % (24.0-44.0); Mean Cell Volume 89.4 fL (78-100); Mean Corpuscular Hgb Concent. 31.3 g/dL (32-36); Monocyte (Absolute #) 0.56 x10^3/uL (0.0-1.3); Monocytes % 5.3 % (0.0-12.0); Neutrophil % 68.9 % (36.0-66.0); Platelet Count 490 x10^3/uL (150-450); Red Blood Count 4.64 x10^6/uL (4.1-5.6); Red Cell Distribution Width 18.2 % (11.5-14.0); White Blood Count 10.5 x10^3/uL (4.0-10.5)
[2022-12-01 06:15] LABS: ANION GAP 7.1 MEQ/L (5-15); BLOOD UREA NITROGEN 8 mg/dL (9-20); CHLORIDE 102 mmol/L (98-107); Calcium 8.5 mg/dL (8.4-10.2); Carbon Dioxide 31 mmol/L (22-30); Creatinine 1 0.65 mg/dL (0.66-1.25); EST GLOMERULAR FILTRATION RATE > 60.0 ML/MIN; Glucose 184 mg/dL (74-106); Potassium 4.4 mmol/L (3.5-5.1); SODIUM 136 mmol/L (137-145)
[2022-12-01] MEDS ORDERED: Sterile H2O 10 ml IJ ONE ×2 (07:39→23:56)
[2022-12-01] MEDS: Sodium Chloride 0.9% 1000 ML 1,000 ML IV SCH ×2 (07:42→22:16)
[2022-12-01] MEDS: solu-CORTEF 100MG IV SCH ×3 (07:44→23:59)
--- NOTE | 2022-12-01 08:18 | PCM.NOTE ---
Date and Time: 12/01/22816 Subjective Assessment: patient doing some better, was able to sleep with benadryl last night. no new complaints Objective Exam General Appearance: no apparent distress, obese Neurologic Exam: alert, oriented x 3 Respiratory Exam: normal breath sounds, lungs clear, No respiratory distress Cardiovascular Exam: regular rate/rhythm, normal heart sounds Gastrointestinal/Abdomen Exam: soft, No tenderness, No mass OBJECTIVE DATA Vital Signs: Vital Signs - 24 hr Temp Pulse Resp BP Pulse Ox 12/01/22 07:36 97.1 F 79 16 140/75 98 12/01/22 07:33 94 L 12/01/22 04:56 18 98 12/01/22 04:00 97.6 F 67 20 132/74 97 12/01/22 00:28 98 11/30/22 23:52 97.6 F 65 18 133/73 97 11/30/22 21:48 20 96 11/30/22 20:28 20 97 11/30/22 20:19 20 97 11/30/22 20:00 97.3 F 113 H 20 136/79 97 11/30/22 19:21 95 11/30/22 18:55 95 11/30/22 16:00 98.1 F 95 H 18 128/77 98 11/30/22 11:16 98.0 F 85 18 127/69 98 Pain Assessment - Last Documented Pain Intensity 8 Pain Scale Used 0-10 Pain Scale Intake and Output: Intake & Output 11/28/22 11/29/22 11/30/22 12/01/22 11:59 11:59 11:59 11:59 Intake Total 6203 5217 4372 Output Total 4000 6050 6150 Balance 5843 -391 -1100 Weight 110.1 kg Lab Results: Lab Results-Last 24 Hours 11/30/22 11/30/22 11/30/22 Range/Units 11:03 15:50 21:34 WBC (4.0-10.5) x10^3/uL RBC (4.1-5.6) x10^6/uL Hgb (12.5-18.0) g/dL Hct (42-50) % MCV (78-100) fL MCH (26-32) pg MCHC (32-36) g/dL RDW (11.5-14.0) % Plt Count (150-450) x10^3/uL MPV (7.5-11.0) fL Gran % (36.0-66.0) % Immature Gran % (Auto) (0.00-0.4) % Nucleat RBC Rel Count (0.00-0.1) % Eos # (Auto) (0-0.5) x10^3/uL Immature Gran # (Auto) (0.00-0.03) x10^3u/L Absolute Lymphs (auto) (1.0-4.6) x10^3/uL Absolute Monos (auto) (0.0-1.3) x10^3/uL Absolute Nucleated RBC (0.00-0.01) x10^3u/L Lymphocytes % (24.0-44.0) % Monocytes % (0.0-12.0) % Eosinophils % (0.00-5.0) % Basophils % (0.0-0.4) % Absolute Granulocytes (1.4-6.9) x10^3/uL Basophils # (0-0.4) x10^3/uL Sodium (137-145) mmol/L Potassium (3.5-5.1) mmol/L Chloride (98-107) mmol/L Carbon Dioxide (22-30) mmol/L Anion Gap (5-15) MEQ/L BUN (9-20) mg/dL Creatinine (0.66-1.25) mg/dL Estimated GFR ML/MIN Glucose (74-106) mg/dL POC Glucometer 281 H 196 H 313 H (74 to 106) mg/dL Calcium (8.4-10.2) mg/dL 12/01/22 12/01/22 12/01/22 Range/Units 04:45 04:45 06:52 WBC 10.5 (4.0-10.5) x10^3/uL RBC 4.64 (4.1-5.6) x10^6/uL Hgb 13.0 (12.5-18.0) g/dL Hct 41.5 L (42-50) % MCV 89.4 (78-100) fL MCH 28.0 (26-32) pg MCHC 31.3 L (32-36) g/dL RDW 18.2 H (11.5-14.0) % Plt Count 490 H (150-450) x10^3/uL MPV 10.0 (7.5-11.0) fL Gran % 68.9 H (36.0-66.0) % Immature Gran % (Auto) 1.7 H (0.00-0.4) % Nucleat RBC Rel Count 0.0 (0.00-0.1) % Eos # (Auto) 0.03 (0-0.5) x10^3/uL Immature Gran # (Auto) 0.18 H (0.00-0.03) x10^3u/L Absolute Lymphs (auto) 2.40 (1.0-4.6) x10^3/uL Absolute Monos (auto) 0.56 (0.0-1.3) x10^3/uL Absolute Nucleated RBC 0.00 (0.00-0.01) x10^3u/L Lymphocytes % 22.9 L (24.0-44.0) % Monocytes % 5.3 (0.0-12.0) % Eosinophils % 0.3 (0.00-5.0) % Basophils % 0.9 (0.0-0.4) % Absolute Granulocytes 7.21 H (1.4-6.9) x10^3/uL Basophils # 0.09 (0-0.4) x10^3/uL Sodium 136 L (137-145) mmol/L Potassium 4.4 (3.5-5.1) mmol/L Chloride 102 (98-107) mmol/L Carbon Dioxide 31 H (22-30) mmol/L Anion Gap 7.1 (5-15) MEQ/L BUN 8 L (9-20) mg/dL Creatinine 0.65 L (0.66-1.25) mg/dL Estimated GFR > 60.0 ML/MIN Glucose 184 H (74-106) mg/dL POC Glucometer 153 H (74 to 106) mg/dL Calcium 8.5 (8.4-10.2) mg/dL Assessment/Plan (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 slowly improving. Code(s): G03.2 - BENIGN RECURRENT MENINGITIS [MOLLARET] (2) Cephalgia Current Visit: No Status: Acute Onset Date: ~11/01/18 Code(s): R51 - HEADACHE * DO NOT USE * (3) Chronic pain syndrome Current Visit: No Status: Acute Code(s): G89.4 - CHRONIC PAIN SYNDROME
[2022-12-01] MEDS: MINERAL OIL PO SCH ×5 (09:07→23:03)
[2022-12-01] MEDS: THERAGRAN MULTIVITAMIN PO SCH (09:07)
[2022-12-01] MEDS: Cymbalta 30 MG Capsule PO SCH ×4 (09:08→23:00)
[2022-12-01] MEDS: ECOTRIN 81 MG PO SCH (09:11)
[2022-12-01] MEDS: HUMALOG SQ PRN ×2 (11:51→22:15)
[2022-12-01] MEDS: HYDROMORPHONE 30 MG/30 ML-NS PCA IV PRN (12:41)
[2022-12-01] MEDS: Zocor 10MG PO SCH ×3 (22:15→23:02)
[2022-12-01] MEDS: Vasotec 10 MG PO SCH ×3 (22:15→23:02)
[2022-12-01] MEDS: Protonix 40MG Tablet PO SCH ×3 (22:16→23:01)
[2022-12-01] MEDS: BENADRYL 50 MG/ML IV PRN ×2 (22:49→23:59)
[2022-12-02] MEDS: SODIUM CHLORIDE 0.9% IV SCH ×3 (02:13→18:11)
[2022-12-02] MEDS: ZOVIRAX IV SCH ×3 (02:13→18:11)
[2022-12-02] MEDS: MSIR 15 MG PO SCH ×3 (06:18→18:10)
[2022-12-02] MEDS: HYDROMORPHONE 30 MG/30 ML-NS PCA IV PRN (08:11)
[2022-12-02] MEDS: solu-CORTEF 100MG IV SCH ×2 (08:16→17:12)
[2022-12-02] MEDS: THERAGRAN MULTIVITAMIN PO SCH (08:17)
[2022-12-02] MEDS: Cymbalta 30 MG Capsule PO SCH ×2 (08:17→21:44)
[2022-12-02] MEDS: ECOTRIN 81 MG PO SCH (08:17)
[2022-12-02] MEDS: MINERAL OIL PO SCH ×3 (08:17→21:45)
--- NOTE | 2022-12-02 09:51 | PCM.DS ---
Discharge Summary Date of Admission: 11/29/22 10:43 Admitting Physician: ANN ALEXIS Primary Care Provider: ANN ALEXIS Allergies Allergies pregabalin [From Lyrica] Adverse Reaction (Severe, Verified 11/28/22 15:33) Hives SOB hives azithromycin [From Zmax] Adverse Reaction (Mild, Verified 11/28/22 15:33) vomiting Hospital Summary - Hospital Course Hospital Course: patient admitted with severe head and neck pain, symptoms consistent with typical flare of Mollaret's syndrome. he is feeling better after treatment, tolerating po and in no distress - Vitals & Intake/Output Vital Signs: Vital Signs Temperature 98.1 F 12/02/22 06:56 Pulse Rate 62 12/02/22 06:56 Respiratory Rate 16 12/02/22 08:11 Blood Pressure 194/81 12/02/22 06:56 O2 Sat by Pulse Oximetry 99 12/02/22 08:13 Intake & Output: Intake & Output 11/29/22 11/30/22 12/01/22 12/02/22 11:59 11:59 11:59 11:59 Intake Total 6203 5217 4852 1320 Output Total 4000 6050 7100 5350 Balance 2203 -833 -2248 -4030 Weight 110.1 kg - Lab Result Diagrams: 12/01/22 04:45 12/01/22 04:45 Lab Results-Last 24 Hrs: Lab Results-Last 24 Hours 12/01/22 12/01/22 12/01/22 Range/Units 11:16 15:47 21:39 POC Glucometer 264 H 212 H 242 H (74 to 106) mg/dL 12/02/22 Range/Units 07:34 POC Glucometer 153 H (74 to 106) mg/dL Micro Results-Entire Visit: Microbiology 11/28/22 16:40 Blood Culture - Preliminary Blood NO GROWTH TO DATE 11/28/22 16:45 Blood Culture - Preliminary Blood NO GROWTH TO DATE Accuchecks Date 12/02/22 Date 12/01/22 Date 12/01/22 Date 12/01/22 Time 07:42 Time 16:42 Time 11:58 Discharge Exam General Appearance: obese Neurologic Exam: alert, oriented x 3, 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, No motor weakn ess, No facial droop, No slurred speech Respiratory Exam: normal breath sounds, lungs clear, No respiratory distress Cardiovascular Exam: regular rate/rhythm, normal heart sounds Gastrointestinal/Abdomen Exam: soft, normal bowel sounds Final Diagnosis/Problem List - Final Discharge Diagnosis/Problem (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 Code(s): G03.2 - BENIGN RECURRENT MENINGITIS [MOLLARET] (2) Cephalgia Current Visit: No Status: Acute Onset Date: ~11/01/18 Code(s): R51 - HEADACHE * DO NOT USE * (3) Chronic pain syndrome Current Visit: No Status: Acute Code(s): G89.4 - CHRONIC PAIN SYNDROME - Discharge Disposition: Home, Self-Care Condition: Stable Prescriptions: New Acyclovir 800 mg [Acyclovir] 800 mg PO TID #21 tablet Prednisone 20 mg [Deltasone 20 mg] 20 mg PO UD #18 tablet Continue Enalapril Maleate 10 mg [Vasotec 10 MG] 20 mg PO HS Multivitamin [Multi-Vitamin Daily] 1 each PO DAILY Aspirin 81 mg PO DAILY Testosterone Cypionate 1 ml IM UD Duloxetine HCl [Cymbalta] 60 mg PO BID Metformin HCl 500 mg [Glucophage 500 MG] 1,000 mg PO BIDWM Atorvastatin Calcium [Lipitor] 10 mg PO HS Morphine Sulfate Ir 15 mg [Msir 15 mg] 15 mg PO 0600,1200,1800,0000 Omeprazole 20 mg PO HS Mineral Oil 30 ml PO TID Follow up with: ANN ALEXIS MD [Primary Care Provider] -
[2022-12-02] MEDS: Sodium Chloride 0.9% 1000 ML 1,000 ML IV SCH (10:16)
[2022-12-02] MEDS: Vasotec 10 MG PO SCH (21:44)
[2022-12-02] MEDS: HUMALOG SQ PRN (21:44)
[2022-12-02] MEDS: Zocor 10MG PO SCH (21:44)
[2022-12-02] MEDS: Protonix 40MG Tablet PO SCH (21:44)
[2022-12-03] MEDS ORDERED: Sterile H2O 10 ml IJ ONE ×2 (00:13→08:33)
[2022-12-03] MEDS: BENADRYL 50 MG/ML IV PRN (00:16)
[2022-12-03] MEDS: MSIR 15 MG PO SCH ×3 (00:16→11:37)
[2022-12-03] MEDS: solu-CORTEF 100MG IV SCH ×2 (00:17→08:35)
[2022-12-03] MEDS: HYDROMORPHONE 30 MG/30 ML-NS PCA IV PRN ×2 (00:26→07:05)
[2022-12-03] MEDS: Sodium Chloride 0.9% 1000 ML 1,000 ML IV SCH (00:29)
[2022-12-03] MEDS: ZOVIRAX IV SCH ×2 (02:22→10:53)
[2022-12-03] MEDS: SODIUM CHLORIDE 0.9% IV SCH ×2 (02:22→10:53)
--- NOTE | 2022-12-03 09:07 | PCM.DS ---
Discharge Summary Date of Admission: 11/29/22 10:43 Admitting Physician: ANN ALEXIS Primary Care Provider: ANN ALEXIS Allergies Allergies pregabalin [From Lyrica] Adverse Reaction (Severe, Verified 11/28/22 15:33) Hives SOB hives azithromycin [From Zmax] Adverse Reaction (Mild, Verified 11/28/22 15:33) vomiting Hospital Summary - Hospital Course Hospital Course: patient admitted with headache and neck pain, typical flare of Mollaret's syndrome. improved with acyclovir and solu cortef as per usual treatment. he is back to baseline and ready to discharge today - Vitals & Intake/Output Vital Signs: Vital Signs Temperature 96.9 F 12/03/22 08:00 Pulse Rate 72 12/03/22 08:00 Respiratory Rate 18 12/03/22 08:00 Blood Pressure 163/89 12/03/22 08:00 O2 Sat by Pulse Oximetry 98 12/03/22 08:00 Intake & Output: Intake & Output 11/30/22 12/01/22 12/02/22 12/03/22 11:59 11:59 11:59 11:59 Intake Total 5217 4852 1320 5696 Output Total 6050 7100 5350 3100 [facility] -833 -2248 -4030 2596 - Lab Result Diagrams: 12/01/22 04:45 12/01/22 04:45 Lab Results-Last 24 Hrs: Lab Results-Last 24 Hours 12/02/22 12/02/22 12/02/22 Range/Units 11:35 16:23 21:39 POC Glucometer 263 H 215 H 233 H (74 to 106) mg/dL 12/03/22 Range/Units 07:09 POC Glucometer 177 H (74 to 106) mg/dL Micro Results-Entire Visit: Microbiology 11/28/22 16:45 Blood Culture Gram Stain - Final Blood Not Reportable Blood Culture - Final NO GROWTH 11/28/22 16:40 Blood Culture Gram Stain - Final Blood Not Reportable Blood Culture - Final NO GROWTH Accuchecks Date 12/03/22 Date 12/02/22 Date 12/02/22 Time 16:28 Time 11:42 - Procedures and Test Procedures and Tests throughout Hospitalization: Therapy Orders & Screens 12/03/22 08:44 PT Eval & Treat ( Order) ONCE Reason for Eval:: numbness/weakness ble Diagnosis: MOLLARET'S SYNDROME, CHRONIC RECURRENT MENINGITIS Discharge Exam General Appearance: no apparent distress, obese Neurologic Exam: alert, oriented x 3 Respiratory Exam: normal breath sounds, lungs clear, No respiratory distress Cardiovascular Exam: regular rate/rhythm, normal heart sounds Gastrointestinal/Abdomen Exam: soft, No tenderness, No mass Extremity Exam: normal inspection, normal range of motion Skin Exam: normal color, warm, dry Final Diagnosis/Problem List - Final Discharge Diagnosis/Problem (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 Code(s): G03.2 - BENIGN RECURRENT MENINGITIS [MOLLARET] (2) Cephalgia Current Visit: No Status: Acute Onset Date: ~11/01/18 Code(s): R51 - HEAD ACHE * DO NOT USE * (3) Chronic pain syndrome Current Visit: No Status: Acute Code(s): G89.4 - CHRONIC PAIN SYNDROME - Discharge Disposition: Home, Self-Care Condition: Stable Prescriptions: New Acyclovir 800 mg [Acyclovir] 800 mg PO TID #21 tablet Prednisone 20 mg [Deltasone 20 mg] 20 mg PO UD #18 tablet Continue Enalapril Maleate 10 mg [Vasotec 10 MG] 20 mg PO HS Multivitamin [Multi-Vitamin Daily] 1 each PO DAILY Aspirin 81 mg PO DAILY Testosterone Cypionate 1 ml IM UD Duloxetine HCl [Cymbalta] 60 mg PO BID Metformin HCl 500 mg [Glucophage 500 MG] 1,000 mg PO BIDWM Atorvastatin Calcium [Lipitor] 10 mg PO HS Morphine Sulfate Ir 15 mg [Msir 15 mg] 15 mg PO 0600,1200,1800,0000 Omeprazole 20 mg PO HS Mineral Oil 30 ml PO TID Follow up with: ANN ALEXIS MD [Primary Care Provider] -
[2022-12-03] MEDS: Cymbalta 30 MG Capsule PO SCH (10:47)
[2022-12-03] MEDS: THERAGRAN MULTIVITAMIN PO SCH (10:47)
[2022-12-03] MEDS: ECOTRIN 81 MG PO SCH (10:47)
[2022-12-03] MEDS: MINERAL OIL PO SCH (10:52)
[2022-12-03] MEDS: HUMALOG SQ PRN (11:37)
[2022-12-03 11:56] VITALS: BP 138/72; PULSE 71; O2SAT 99
== END 2022-12-03 12:59 | disposition home or self-care (01) | DRG 76 ==
LOC: ED 15:27 → MED SURG 18:08 → OBSVTOIN 11-29 10:43
PROVIDERS: ADMIT Family Medicine; ATTEND Family Medicine
DX: G03.2 Benign recurrent meningitis [Mollaret] (principal); G89.4 Chronic pain syndrome; I10 Essential (primary) hypertension; Z79.899 Other long term (current) drug therapy; Z20.828 Contact with and (suspected) exposure to other viral communicable diseases
CPT/HCPCS: 0241U; 36000; 36415; 80048; 80053; 82947; 83605; 85025; 87040; 93268; 94760; 94762; 96360; 96365; 96374; 96375; 97161; 99285; G0283; G0378; 97014; J0133; J1170; J1200; J1720; J1817; J2930; A9270-GY

== ENCOUNTER 2022-12-25 13:38 | Inpatient (IN) | payer MEDICARE, BC ==
[2022-12-25] MEDS ORDERED: Hydromorphone 1 mg/ml Injection IV ONE (13:57)
[2022-12-25] MEDS ORDERED: Zofran 4 MG/2 ML VIAL IV ONE (13:57)
--- NOTE | 2022-12-25 13:57 | ERPHSYRPT ---
- History of Present Illness Time Seen by Provider: 12/25/22 13:57 Source: patient Exam Limitations: no limitations Physician History: This is a 52-year-old white male patient of Dr. Alexis who is well-known to our emergency department. He comes in approximately every 3 to 5 weeks because of chronic recurrent symptoms of meningitis. Included symptoms are headache and generalized pain. He has a diagnosis of Mollaret's syndrome. I spoke with Dr. Alexis, this patient has seen his neurologist relatively recently, Dr. Alcantara. Dr. 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 This patient has a history of hypertension, sleep apnea and gastroesophageal reflux disease. He denies chest pain and he denies shortness of breath. Severity: moderate Associated Symptoms: denies symptoms Allergies/Adverse Reactions: pregabalin [From Lyrica] Adverse Reaction (Severe, Verified 12/25/22 13:50) Hives SOB hives azithromycin [From Zmax] Adverse Reaction (Mild, Verified 12/25/22 13:50) vomiting Home Medications: Aspirin 81 mg PO DAILY 01/24/14 [History] Enalapril Maleate 10 mg [Vasotec 10 MG] 20 mg PO HS 01/24/14 [History] Multivitamin [Multi-Vitamin Daily] 1 each PO DAILY 01/24/14 [History] Testosterone Cypionate 1 ml IM UD 10/09/14 [History] Duloxetine HCl [Cymbalta] 60 mg PO BID 04/23/15 [History] Metformin HCl 500 mg [Glucophage 500 MG] 1,000 mg PO BIDWM 04/20/20 [History] Atorvastatin Calcium [Lipitor] 10 mg PO HS 01/06/22 [History] Morphine Sulfate Ir 15 mg [Msir 15 mg] 15 mg PO 0600,1200,1800,0000 02/07/22 [History] Mineral Oil 30 ml PO TID 10/30/22 [History] Esomeprazole Magnesium [Nexium 24Hr] 40 mg PO HS 12/25/22 [History] Prednisone 20 mg [Deltasone 20 mg] 15 mg PO DAILY 12/25/22 [History] Hx Tetanus, Diphtheria Vaccination/Date Given: Yes (february 2016) Hx Influenza Vaccination/Date Given: No (Doesn't get one) Hx Pneumococcal Vaccination/Date Given: Yes Travel Risk - International Travel Have you traveled outside of the country in past 3 weeks: No - Coronavirus Screening Are you exhibiting any of the following symptoms?: Yes Symptoms: Headaches/Body Aches/Fatigue Close contact with a COVID-19 positive Pt in past 14-21 Days: No - Vaccine Status Have you recieved a Covid-19 vaccination: Yes 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 - Review of Systems Constitutional: No Symptoms Eyes: No Symptoms Ears, Nose, & Throat: No Symptoms Respiratory: No Symptoms Cardiac: No Symptoms Abdominal/Gastrointestinal: No Symptoms Genitourinary Symptoms: No Symptoms Musculoskeletal: Arthralgias, Myalgias Skin: No Symptoms Neurological: Headache Psychological: No Symptoms Endocrine: No Symptoms Hematologic/Lymphatic: No Symptoms Immunological/Allergic: No Symptoms All Other Systems: Reviewed and Negative - Past Medical History Pertinent Past Medical History: Yes Neurological History: Other ENT History: No Pertinent History Cardiac History: Hypertension Respiratory History: Sleep Apnea Endocrine Medical History: Other Musculoskeletal History: No Pertinent History GI Medical History: GERD History: No Pertinent History Psycho-Social History: Depression Male Reproductive Disorders: No Pertinent History Other Medical History: Mollaret's, spleen removed - Past Surgical History Past Surgical History: Yes Neuro Surgical History: No Pertinent History Cardiac: No Pertinent History Respiratory: No Pertinent History Gastrointestinal: Appendectomy, Other Genitourinary: No Pertinent History Musculoskeletal: No Pertinent History Male Surgical History: Vasectomy Other Surgical History: splenectomy, 2 nasal surgeries - Social History Smoking Status: Never smoker Exposure to second hand smoke: No Alcohol Use: None Drug Use: none Patient Lives Alone: No Significant Family History: no pertinent family hx - Nursing Vital Signs Nursing Vital Signs: Initial Vital Signs Temperature 99 F 12/25/22 13:55 Pulse Rate 101 H 12/25/22 13:55 Respiratory Rate 20 12/25/22 13:55 Blood Pressure 124/86 12/25/22 13:55 O2 Sat by Pulse Oximetry 96 12/25/22 13:55 Pain Scale Pain Intensity [Neck] 9 Pain Intensity 9 - Physical Exam General Appearance: mild distress, alert, anxiety Eye Exam: PERRL/EOMI, post op pupil defect (L) Ears, Nose, Throat Exam: normal ENT inspection, moist mucous membranes Neck Exam: normal inspection, non-tender, supple, full range of motion Respiratory Exam: normal breath sounds, lungs clear, airway intact, No chest tenderness, No respiratory distress Cardiovascular Exam: regular rate/rhythm, normal heart sounds, normal peripheral pulses Gastrointestinal/Abdomen Exam: soft, normal bowel sounds, No tenderness Rectal Exam: not done Back Exam: normal inspection, normal range of motion, No CVA tenderness, No vertebral tenderness Extremity Exam: normal inspection, normal range of motion, pelvis stable Neurologic Exam: alert, oriented x 3, cooperative, 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, normal mood/affect, nml cerebellar function, nml station & gait, sensation nml Skin Exam: normal color, warm, dry Lymphatic Exam: No adenopathy SpO2 Interpretation: normal O2 Delivery: Room Air - Course Nursing assessment & vital signs reviewed: Yes Ordered Tests: Active Orders 24 hr Category Date Time Status IV Insertion STAT Care 12/25/22 13:57 Active CBC W DIFF Stat Lab 12/25/22 13:57 Ordered CMP Stat Lab 12/25/22 13:57 Ordered UA W/RFX UR CULTURE Stat Lab 12/25/22 13:57 Ordered Transfer Order Routine Transfer 12/25/22 Ordered Medication Summary Generic Name Dose Route Start Last Admin Trade Name Freq PRN Reason Stop Dose Admin Sodium Chloride 1,000 mls @ 100 mls/hr 12/25/22 14:00 Sodium Chloride 0.9% 1000 Ml IV 01/24/23 13:59 .Q10H GLENNA Acyclovir Sodium 500 mg/ 100 mls @ 100 mls/hr 12/25/22 13:59 Dextrose IV 12/25/22 14:58 STAT ONE Discontinued Medications Generic Name Dose Route Start Last Admin Trade Name Freq PRN Reason Stop Dose Admin Hydrocortisone Sodium Succinate 100 mg 12/25/22 13:58 Hydrocortisone Sod Succinate 100 Mg/Vial Vial IV 12/25/22 13:59 STAT ONE Hydrocortisone Sodium Succinate Confirm 12/25/22 14:07 Hydrocortisone Sod Succinate 100 Mg/Vial Vial Administered 12/25/22 14:08 Dose 100 mg .ROUTE .STK-MED ONE Hydromorphone HCl 1 mg 12/25/22 13:57 Hydromorphone 1 Mg/1ml Inj 1 Mg/Ml Syringe IV 12/25/22 13:58 STAT ONE Hydromorphone HCl Confirm 12/25/22 14:07 Hydromorphone 1 Mg/1ml Inj 1 Mg/Ml Syringe Administered 12/25/22 14:08 Dose 1 mg .ROUTE .STK-MED ONE Ondansetron HCl 4 mg 12/25/22 13:57 Ondansetron Hcl 4 Mg/2 Ml Vial IV 12/25/22 13:58 STAT ONE Ondansetron HCl Confirm 12/25/22 14:07 Ondansetron Hcl 4 Mg/2 Ml Vial Administered 12/25/22 14:08 Dose 4 mg .ROUTE .STK-MED ONE - Progress Progress: improved, pain not gone completely Discussed with Dr.: Ivory Counseled pt/family regarding: lab results, diagnosis Medical Desision Making - External Record(s) Reviewed Records reviewed as a part of evaluation & management: Discharge Summary - Discussion of managment Care discussed with:: PCP Reviewed:: Test results Agreed on:: Treatment plan, place in obs Will see patient: in hospital - Diagnostic Testing Diagnostic test were ordered, analyzed, and reviewed by me: Yes - Risk of complications Minimal Risk: Minimal risk of morbidity - Departure Departure Disposition: Observation Clinical Impression: Mollaret's syndrome (benign recurrent meningitis) Condition: Stable Critical Care Time: No Referrals: ANN ALEXIS MD [Primary Care Provider] - Follow up/PCP as directed
[2022-12-25] MEDS ORDERED: solu-CORTEF 100MG IV ONE (13:58)
[2022-12-25] MEDS ORDERED: Zovirax INJ*** 500 MG in D5w 100ML Mini Bag 100 ML 100 ML IV ONE (13:59)
[2022-12-25] MEDS ORDERED: Sodium Chloride 0.9% 1000 ML 1,000 ML IV SCH (14:00)
[2022-12-25] MEDS ORDERED: Hydromorphone 1 mg/ml Injection ONE (14:07)
[2022-12-25] MEDS ORDERED: solu-CORTEF 100MG ONE (14:07)
[2022-12-25] MEDS ORDERED: Zofran 4 MG/2 ML VIAL ONE (14:07)
[2022-12-25] MEDS ORDERED: SODIUM CHLORIDE MINI IV ONE (14:15)
[2022-12-25] MEDS ORDERED: ZOVIRAX IV ONE (14:15)
[2022-12-25 14:22] LABS: BASOPHIL % 0.9 % (0.0-0.4); Basophil (Absolute #) 0.09 x10^3/uL (0-0.4); Eosinophil % 7.6 % (0.00-5.0); Eosinophil (Absolute #) 0.73 x10^3/uL (0-0.5); Hematocrit 48.6 % (42-50); Hemoglobin 15.8 g/dL (12.5-18.0); IMMATURE GRAN # 0.08 x10^3u/L (0.00-0.03); IMMATURE GRAN % 0.8 % (0.00-0.4); Lymphocytes % 31.3 % (24.0-44.0); Mean Corpuscular Hemoglobin 28.6 pg (26-32); Mean Corpuscular Hgb Concent. 32.5 g/dL (32-36); Mean Platelet Volume 9.5 fL (7.5-11.0); Monocytes % 9.4 % (0.0-12.0); Platelet Count 457 x10^3/uL (150-450); Red Blood Count 5.52 x10^6/uL (4.1-5.6); Red Cell Distribution Width 15.8 % (11.5-14.0); White Blood Count 9.6 x10^3/uL (4.0-10.5)
[2022-12-25 14:35] LABS: ALBUMIN 4.5 g/dL (3.5-5.0); ALKALINE PHOSPHATASE 96 U/L (38-126); ANION GAP 13.2 MEQ/L (5-15); BLOOD UREA NITROGEN 10 mg/dL (9-20); CHLORIDE 98 mmol/L (98-107); Calcium 8.9 mg/dL (8.4-10.2); Carbon Dioxide 30 mmol/L (22-30); Creatinine 1 0.73 mg/dL (0.66-1.25); EST GLOMERULAR FILTRATION RATE > 60.0 ML/MIN; Glucose 115 mg/dL (74-106); Potassium 4.6 mmol/L (3.5-5.1); SGOT/AST 55 U/L (17-59); SGPT/ALT 56 U/L (0-50); SODIUM 136 mmol/L (137-145); Total Protein 7.6 g/dL (6.3-8.2)
[2022-12-25 14:58] LABS: INFLUENZA A NEGATIVE (NEGATIVE); INFLUENZA B NEGATIVE (NEGATIVE); RESPIRATORY SYNCTIAL VIRUS NEGATIVE (Negative); SARS-CoV-2 Xpert Express NEGATIVE (NEGATIVE)
[2022-12-25] MEDS ORDERED: SODIUM CHLORIDE 0.9% IV SCH (15:44)
[2022-12-25] MEDS ORDERED: Zofran 4 MG/2 ML VIAL IV PRN (15:44)
[2022-12-25] MEDS ORDERED: solu-CORTEF 100MG IV SCH (15:44)
[2022-12-25] MEDS ORDERED: ZOVIRAX IV SCH (15:44)
[2022-12-25] MEDS ORDERED: HYDROMORPHONE 30 MG/30 ML-NS PCA IV PRN (15:44)
[2022-12-25] MEDS ORDERED: TYLENOL 325 MG PO PRN (15:44)
[2022-12-25] MEDS: Sodium Chloride 0.9% 1000 ML 1,000 ML IV SCH (16:05)
--- NOTE | 2022-12-25 16:20 | PCM.HP ---
History of Present Illness - Chief Complaint Chief Complaint: Molarett's syndrome History of Present Illness: is a 52 year old male with benign recurrent aseptic meningitis and chronic pain syndrome. he sees Dr Alcantara for neurology and Dr Greer for his chronic pain, he presented with a several day history of escalating neck and head pain, no fever. 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 - Review of Systems Constitutional: No Fever, No Chills Respiratory: No Cough, No Short Of Breath Cardiac: No Chest Pain, No Edema, No Syncope Abdominal/Gastrointestinal: No Abdominal Pain, No Nausea, No Vomiting, No Diarrhea Genitourinary Symptoms: No Dysuria Musculoskeletal: Neck Pain, No Fall, No Injury Skin: No Rash Neurological: Headache, Other (neck pain) Medications & Allergies Home Medications: Home Medication List Aspirin 81 mg PO DAILY 01/24/14 [History Confirmed 12/25/22] Enalapril Maleate 10 mg [Vasotec 10 MG] 20 mg PO HS 01/24/14 [History Confirmed 12/25/22] Multivitamin [Multi-Vitamin Daily] 1 each PO DAILY 01/24/14 [History Confirmed 12/25/22] Testosterone Cypionate 1 ml IM UD 10/09/14 [History Confirmed 12/25/22] Duloxetine HCl [Cymbalta] 60 mg PO BID 04/23/15 [History Confirmed 12/25/22] Metformin HCl 500 mg [Glucophage 500 MG] 1,000 mg PO BIDWM 04/20/20 [History Confirmed 12/25/22] Atorvastatin Calcium [Lipitor] 10 mg PO HS 01/06/22 [History Confirmed 12/25/22] Morphine Sulfate Ir 15 mg [Msir 15 mg] 15 mg PO 0600,1200,1800,0000 02/07/22 [History Confirmed 12/25/22] Mineral Oil 30 ml PO TID 10/30/22 [History Confirmed 12/25/22] Esomeprazole Magnesium [Nexium 24Hr] 40 mg PO HS 12/25/22 [History Confirmed 12/25/22] Prednisone 20 mg [Deltasone 20 mg] 15 mg PO DAILY 12/25/22 [History Confir med 12/25/22] Allergies/Adverse Reactions: Allergies Allergy/AdvReac Type Severity Reaction Status Date / Time pregabalin [From Lyrica] AdvReac Severe Hives Verified 12/25/22 13:50 azithromycin [From Zmax] AdvReac Mild Verified 12/25/22 13:50 - Past Medical History Past Medical History: Yes Neurological History: Other ENT History: No Pertinent History Cardiac History: Hypertension Respiratory History: Sleep Apnea Endocrine Medical History: Other Musculoskelatal History: No Pertinent History GI Medical History: GERD History: No Pertinent History Pyscho-Social History: Depression Male Reproductive Disorders: No Pertinent History Comment: Mollaret's, spleen removed - Past Surgical History Past Surgical History: Yes Neuro Surgical History: No Pertinent History Cardiac History: No Pertinent History Respiratory Surgery: No Pertinent History GI Surgical History: Appendectomy, Other Genitourinary Surgical Hx: No Pertinent History Musculskeletal Surgical Hx: No Pertinent History Male Surgical History: Vasectomy Other Surgical History: splenectomy, 2 nasal surgeries - Social History Smoking Status: Never smoker Exposure to second hand smoke: No Alcohol: None Drug Use: none Significant Family History: no pertinent family hx - Physical Exam Vital Signs: Vital Signs - 24 hr Temp Pulse Resp BP Pulse Ox 12/25/22 15:51 97.1 F 94 H 18 142/81 93 L 12/25/22 14:40 96 H 18 143/81 93 L 12/25/22 13:55 99 F 101 H 20 124/86 96 General Appearance: no apparent distress, obese Neurologic Exam: alert, oriented x 3, cooperative, 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, No motor deficits, No sensory deficit, No slurred speech Eye Exam: PERRL/EOMI, eyes nml inspection Neck Exam: supple, full range of motion Respiratory Exam: normal breath sounds, lungs clear, No respiratory distress Cardiovascular Exam: regular rate/rhythm, normal heart sounds, normal peripheral pulses Gastrointestinal/Abdomen Exam: soft, normal bowel sounds, No tenderness, No mass Skin Exam: normal color, warm, dry, No rash Results - Labs Lab/Micro Results: Lab Results-Last 24 Hours 12/25/22 12/25/22 12/25/22 Range/Units 14:22 14:22 14:22 WBC 9.6 (4.0-10.5) x10^3/uL RBC 5.52 (4.1-5.6) x10^6/uL Hgb 15.8 (12.5-18.0) g/dL Hct 48.6 (42-50) % MCV 88.0 (78-100) fL MCH 28.6 (26-32) pg MCHC 32.5 (32-36) g/dL RDW 15.8 H (11.5-14.0) % Plt Count 457 H (150-450) x10^3/uL MPV 9.5 (7.5-11.0) fL Gran % 50.0 (36.0-66.0) % Immature Gran % (Auto) 0.8 H (0.00-0.4) % Nucleat RBC Rel Count 0.0 (0.00-0.1) % Eos # (Auto) 0.73 H (0-0.5) x10^3/uL Immature Gran # (Auto) 0.08 H (0.00-0.03) x10^3u/L Absolute Lymphs (auto) 3.00 (1.0-4.6) x10^3/uL Absolute Monos (auto) 0.90 (0.0-1.3) x10^3/uL Absolute Nucleated RBC 0.00 (0.00-0.01) x10^3u/L Lymphocytes % 31.3 (24.0-44.0) % Monocytes % 9.4 (0.0-12.0) % Eosinophils % 7.6 H (0.00-5.0) % Basophils % 0.9 (0.0-0.4) % Absolute Granulocytes 4.80 (1.4-6.9) x10^3/uL Basophils # 0.09 (0-0.4) x10^3/uL Sodium 136 L (137-145) mmol/L Potassium 4.6 (3.5-5.1) mmol/L Chloride 98 (98-107) mmol/L Carbon Dioxide 30 (22-30) mmol/L Anion Gap 13.2 (5-15) MEQ/L BUN 10 (9-20) mg/dL Creatinine 0.73 (0.66-1.25) mg/dL Estimated GFR > 60.0 ML/MIN Glucose 115 H (74-106) mg/dL Calcium 8.9 (8.4-10.2) mg/dL Total Bilirubin 0.50 (0.2-1.3) mg/dL AST 55 (17-59) U/L ALT 56 H (0-50) U/L Alkaline Phosphatase 96 (38-126) U/L Serum Total Protein 7.6 (6.3-8.2) g/dL Albumin 4.5 (3.5-5.0) g/dL Influenza Type A Ag NEGATIVE (NEGATIVE) Influenza Type B Ag NEGATIVE (NEGATIVE) RSV (PCR) NEGATIVE (Negative) SARS-CoV-2 (PCR) NEGATIVE (NEGATIVE) Assessment/Plan (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 typically will improve with several days of treatment Code(s): G03.2 - BENIGN RECURRENT MENINGITIS [MOLLARET] (2) Cephalgia Current Visit: No Status: Acute Onset Date: ~11/01/18 Code(s): R51 - HEADACHE * DO NOT USE * (3) Neck pain Current Visit: No Status: Acute Onset Date: ~11/01/18 Code(s): M54.2 - CERVICALGIA
[2022-12-25] MEDS: MSIR 15 MG PO SCH ×2 (17:01→23:59)
[2022-12-25 21:12] LABS: Appearance Clear (Clear); Bacteria None Seen /HPF (None Seen); Bilirubin Negative (Negative); Blood Negative (Negative); Epithelial Cells None Seen /HPF (None Seen); Glucose, Urine >=1000 mg/dL (Negative); Hyaline Casts NONE SEEN /LPF (0-2); Ketones Trace (Negative); Leukocyte Esterase Negative (Negative); Nitrite Negative (Negative); Ph 7.5 (4.6-8.0); Protein,Urine Dip Negative (Negative); RBC 0-2 /HPF (0-5); Specific Gravity 1.025 (1.005-1.030); Urobilinogen 0.2 mg/dL (0.2); WBC 0-2 /HPF (0-5)
[2022-12-25] MEDS: HYDROMORPHONE 30 MG/30 ML-NS PCA IV PRN (21:32)
[2022-12-25 21:34] LABS: ADD URINE CULTURE? NO (NO)
[2022-12-25] MEDS ORDERED: Sterile H2O 10 ml IJ ONE (21:44)
[2022-12-25] MEDS ORDERED: NON-FORMULARY ITEM (Duloxetine Hcl [Cymbalta] 60 MG Capsule.Dr) PO SCH (22:00)
[2022-12-25] MEDS ORDERED: ENALAPRIL MALEATE 10 MG PO SCH (22:00)
[2022-12-25] MEDS: solu-CORTEF 100MG IV SCH (22:40)
[2022-12-25] MEDS: HUMALOG SQ PRN (22:40)
[2022-12-25] MEDS: Protonix 40MG Tablet PO SCH (22:40)
[2022-12-25] MEDS: MINERAL OIL PO SCH (22:40)
[2022-12-25] MEDS: ZOVIRAX IV SCH (22:40)
[2022-12-25] MEDS: Cymbalta 30 MG Capsule PO SCH (22:40)
[2022-12-25] MEDS: SODIUM CHLORIDE 0.9% IV SCH (22:40)
[2022-12-25] MEDS: Vasotec 10 MG PO SCH (22:40)
[2022-12-26] MEDS: Sodium Chloride 0.9% 1000 ML 1,000 ML IV SCH ×3 (02:15→23:59)
[2022-12-26 04:59] LABS: Absolute Neutrophil Ct (ANC) 5.71 x10^3/uL (1.4-6.9); BASOPHIL % 0.6 % (0.0-0.4); Basophil (Absolute #) 0.05 x10^3/uL (0-0.4); Eosinophil % 0.2 % (0.00-5.0); Eosinophil (Absolute #) 0.02 x10^3/uL (0-0.5); Hematocrit 46.1 % (42-50); Hemoglobin 14.9 g/dL (12.5-18.0); IMMATURE GRAN # 0.07 x10^3u/L (0.00-0.03); IMMATURE GRAN % 0.9 % (0.00-0.4); Lymphocyte (Absolute #) 1.82 x10^3/uL (1.0-4.6); Lymphocytes % 22.7 % (24.0-44.0); Mean Cell Volume 88.8 fL (78-100); Mean Corpuscular Hemoglobin 28.7 pg (26-32); Mean Corpuscular Hgb Concent. 32.3 g/dL (32-36); Mean Platelet Volume 9.9 fL (7.5-11.0); Monocyte (Absolute #) 0.34 x10^3/uL (0.0-1.3); Monocytes % 4.2 % (0.0-12.0); Neutrophil % 71.4 % (36.0-66.0); Platelet Count 447 x10^3/uL (150-450); Red Blood Count 5.19 x10^6/uL (4.1-5.6); Red Cell Distribution Width 16.1 % (11.5-14.0)
[2022-12-26 05:16] LABS: ANION GAP 12.3 MEQ/L (5-15); BLOOD UREA NITROGEN 10 mg/dL (9-20); CHLORIDE 101 mmol/L (98-107); Calcium 8.4 mg/dL (8.4-10.2); Carbon Dioxide 26 mmol/L (22-30); Creatinine 1 0.74 mg/dL (0.66-1.25); EST GLOMERULAR FILTRATION RATE > 60.0 ML/MIN; Glucose 210 mg/dL (74-106); Potassium 4.8 mmol/L (3.5-5.1); SODIUM 135 mmol/L (137-145)
[2022-12-26] MEDS: MSIR 15 MG PO SCH ×4 (05:55→23:24)
[2022-12-26] MEDS: solu-CORTEF 100MG IV SCH ×3 (05:56→21:23)
[2022-12-26] MEDS: SODIUM CHLORIDE 0.9% IV SCH ×4 (05:58→21:23)
[2022-12-26] MEDS: ZOVIRAX IV SCH ×4 (05:58→21:23)
[2022-12-26] MEDS: HYDROMORPHONE 30 MG/30 ML-NS PCA IV PRN ×2 (07:34→23:59)
[2022-12-26] MEDS ORDERED: BENADRYL 25 MG CAPSULE PO PRN (08:37)
--- NOTE | 2022-12-26 09:00 | PCM.NOTE ---
Date and Time: 12/26/22858 Subjective Assessment: no changes overnight, still with debilitating pain in his head and neck, didn't sleep much last night. no new concerns Objective Exam General Appearance: no apparent distress, obese Respiratory Exam: normal breath sounds, lungs clear, No respiratory distress Cardiovascular Exam: regular rate/rhythm, normal heart sounds Gastrointestinal/Abdomen Exam: soft, No tenderness, No mass Extremity Exam: normal inspection, normal range of motion OBJECTIVE DATA Vital Signs: Vital Signs - 24 hr Temp Pulse Resp BP Pulse Ox 12/26/22 07:53 18 97 12/26/22 07:34 18 97 12/26/22 07:18 97.1 F 86 18 103/60 97 12/26/22 06:00 20 96 12/26/22 04:00 97.3 F 89 19 105/57 94 L 12/26/22 02:00 18 95 12/25/22 23:03 95 H 18 143/86 96 12/25/22 21:32 18 95 12/25/22 20:02 18 95 12/25/22 20:00 98.2 F 67 18 129/79 95 12/25/22 16:15 97.1 F 94 H 18 142/81 93 L 12/25/22 15:51 97.1 F 94 H 18 142/81 93 L 12/25/22 14:40 96 H 18 143/81 93 L 12/25/22 13:55 99 F 101 H 20 124/86 96 Pain Assessment - Last Documented Pain Intensity [Neck] 9 Pain Intensity 8 Pain Scale Used 0-10 Pain Scale Intake and Output: Intake & Output 12/23/22 12/24/22 12/25/22 12/26/22 11:59 11:59 11:59 11:59 Intake Total 2280 Output Total 4900 Balance -2620 Weight 109.7 kg Lab Results: Lab Results-Last 24 Hours 12/25/22 12/25/22 12/25/22 Range/Units 14:22 14:22 14:22 WBC 9.6 (4.0-10.5) x10^3/uL RBC 5.52 (4.1-5.6) x10^6/uL Hgb 15.8 (12.5-18.0) g/dL Hct 48.6 (42-50) % MCV 88.0 (78-100) fL MCH 28.6 (26-32) pg MCHC 32.5 (32-36) g/dL RDW 15.8 H (11.5-14.0) % Plt Count 457 H (150-450) x10^3/uL MPV 9.5 (7.5-11.0) fL Gran % 50.0 (36.0-66.0) % Immature Gran % (Auto) 0.8 H (0.00-0.4) % Nucleat RBC Rel Count 0.0 (0.00-0.1) % Eos # (Auto) 0.73 H (0-0.5) x10^3/uL Immature Gran # (Auto) 0.08 H (0.00-0.03) x10^3u/L Absolute Lymphs (auto) 3.00 (1.0-4.6) x10^3/uL Absolute Monos (auto) 0.90 (0.0-1.3) x10^3/uL Absolute Nucleated RBC 0.00 (0.00-0.01) x10^3u/L Lymphocytes % 31.3 (24.0-44.0) % Monocytes % 9.4 (0.0-12.0) % Eosinophils % 7.6 H (0.00-5.0) % Basophils % 0.9 (0.0-0.4) % Absolute Granulocytes 4.80 (1.4-6.9) x10^3/uL Basophils # 0.09 (0-0.4) x10^3/uL Sodium 136 L (137-145) mmol/L Potassium 4.6 (3.5-5.1) mmol/L Chloride 98 (98-107) mmol/L Carbon Dioxide 30 (22-30) mmol/L Anion Gap 13.2 (5-15) MEQ/L BUN 10 (9-20) mg/dL Creatinine 0.73 (0.66-1.25) mg/dL Estimated GFR > 60.0 ML/MIN Glucose 115 H (74-106) mg/dL POC Glucometer (74 to 106) mg/dL Calcium 8.9 (8.4-10.2) mg/dL Total Bilirubin 0.50 (0.2-1.3) mg/dL AST 55 (17-59) U/L ALT 56 H (0-50) U/L Alkaline Phosphatase 96 (38-126) U/L Serum Total Protein 7.6 (6.3-8.2) g/dL Albumin 4.5 (3.5-5.0) g/dL Urine Color (Yellow) Urine Appearance (Clear) Urine pH (4.6-8.0) Ur Specific [place] (1.005-1.030) Urine Protein (Negative) Urine Glucose (UA) (Negative) mg/dL Urine Ketones (Negative) Urine Blood (Negative) Urine Nitrite (Negative) Urine Bilirubin (Negative) Urine Urobilinogen (0.2) mg/dL Ur Leukocyte Esterase (Negative) U Hyaline Cast (Auto) (0-2) /LPF Urine Microscopic RBC (0-5) /HPF Urine Microscopic WBC (0-5) /HPF Ur Epithelial Cells (None Seen) /HPF Urine Bacteria (None Seen) /HPF Urine Culture Reflexed (NO) Influenza Type A Ag NEGATIVE (NEGATIVE) Influenza Type B Ag NEGATIVE (NEGATIVE) RSV (PCR) NEGATIVE (Negative) SARS-CoV-2 (PCR) NEGATIVE (NEGATIVE) 12/25/22 12/25/22 12/26/22 Range/Units 20:35 21:00 04:19 WBC 8.0 (4.0-10.5) x10^3/uL RBC 5.19 (4.1-5.6) x10^6/uL Hgb 14.9 (12.5-18.0) g/dL Hct 46.1 (42-50) % MCV 88.8 (78-100) fL MCH 28.7 (26-32) pg MCHC 32.3 (32-36) g/dL RDW 16.1 H (11.5-14.0) % Plt Count 447 (150-450) x10^3/uL MPV 9.9 (7.5-11.0) fL Gran % 71.4 H (36.0-66.0) % Immature Gran % (Auto) 0.9 H (0.00-0.4) % Nucleat RBC Rel Count 0.0 (0.00-0.1) % Eos # (Auto) 0.02 (0-0.5) x10^3/uL Immature Gran # (Auto) 0.07 H (0.00-0.03) x10^3u/L Absolute Lymphs (auto) 1.82 (1.0-4.6) x10^3/uL Absolute Monos (auto) 0.34 (0.0-1.3) x10^3/uL Absolute Nucleated RBC 0.00 (0.00-0.01) x10^3u/L Lymphocytes % 22.7 L (24.0-44.0) % Monocytes % 4.2 (0.0-12.0) % Eosinophils % 0.2 (0.00-5.0) % Basophils % 0.6 (0.0-0.4) % Absolute Granulocytes 5.71 (1.4-6.9) x10^3/uL Basophils # 0.05 (0-0.4) x10^3/uL Sodium (137-145) mmol/L Potassium (3.5-5.1) mmol/L Chloride (98-107) mmol/L Carbon Dioxide (22-30) mmol/L Anion Gap (5-15) MEQ/L BUN (9-20) mg/dL Creatinine (0.66-1.25) mg/dL Estimated GFR ML/MIN Glucose (74-106) mg/dL POC Glucometer 278 H (74 to 106) mg/dL Calcium (8.4-10.2) mg/dL Total Bilirubin (0.2-1.3) mg/dL AST (17-59) U/L ALT (0-50) U/L Alkaline Phosphatase (38-126) U/L Serum Total Protein (6.3-8.2) g/dL Albumin (3.5-5.0) g/dL Urine Color Yellow (Yellow) Urine Appearance Clear (Clear) Urine pH 7.5 (4.6-8.0) Ur Specific [place] 1.025 (1.005-1.030) Urine Protein Negative (Negative) Urine Glucose (UA) >=1000 A (Negative) mg/dL Urine Ketones Trace A (Negative) Urine Blood Negative (Negative) Urine Nitrite Negative (Negative) Urine Bilirubin Negative (Negative) Urine Urobilinogen 0.2 (0.2) mg/dL Ur Leukocyte Esterase Negative (Negative) U Hyaline Cast (Auto) NONE SEEN (0-2) /LPF Urine Microscopic RBC 0-2 (0-5) /HPF Urine Microscopic WBC 0-2 (0-5) /HPF Ur Epithelial Cells None Seen (None Seen) /HPF Urine Bacteria None Seen (None Seen) /HPF Urine Culture Reflexed NO (NO) Influenza Type A Ag (NEGATIVE) Influenza Type B Ag (NEGATIVE) RSV (PCR) (Negative) SARS-CoV-2 (PCR) (NEGATIVE) 12/26/22 12/26/22 Range/Units 04:19 06:15 WBC (4.0-10.5) x10^3/uL RBC (4.1-5.6) x10^6/uL Hgb (12.5-18.0) g/dL Hct (42-50) % MCV (78-100) fL MCH (26-32) pg MCHC (32-36) g/dL RDW (11.5-14.0) % Plt Count (150-450) x10^3/uL MPV (7.5-11.0) fL Gran % (36.0-66.0) % Immature Gran % (Auto) (0.00-0.4) % Nucleat RBC Rel Count (0.00-0.1) % Eos # (Auto) (0-0.5) x10^3/uL Immature Gran # (Auto) (0.00-0.03) x10^3u/L Absolute Lymphs (auto) (1.0-4.6) x10^3/uL Absolute Monos (auto) (0.0-1.3) x10^3/uL Absolute Nucleated RBC (0.00-0.01) x10^3u/L Lymphocytes % (24.0-44.0) % Monocytes % (0.0-12.0) % Eosinophils % (0.00-5.0) % Basophils % (0.0-0.4) % Absolute Granulocytes (1.4-6.9) x10^3/uL Basophils # (0-0.4) x10^3/uL Sodium 135 L (137-145) mmol/L Potassium 4.8 (3.5-5.1) mmol/L Chloride 101 (98-107) mmol/L Carbon Dioxide 26 (22-30) mmol/L Anion Gap 12.3 (5-15) MEQ/L BUN 10 (9-20) mg/dL Creatinine 0.74 (0.66-1.25) mg/dL Estimated GFR > 60.0 ML/MIN Glucose 210 H (74-106) mg/dL POC Glucometer 170 H (74 to 106) mg/dL Calcium 8.4 (8.4-10.2) mg/dL Total Bilirubin (0.2-1.3) mg/dL AST (17-59) U/L ALT (0-50) U/L Alkaline Phosphatase (38-126) U/L Serum Total Protein (6.3-8.2) g/dL Albumin (3.5-5.0) g/dL Urine Color (Yellow) Urine Appearance (Clear) Urine pH (4.6-8.0) Ur Specific [place] (1.005-1.030) Urine Protein (Negative) Urine Glucose (UA) (Negative) mg/dL Urine Ketones (Negative) Urine Blood (Negative) Urine Nitrite (Negative) Urine Bilirubin (Negative) Urine Urobilinogen (0.2) mg/dL Ur Leukocyte Esterase (Negative) U Hyaline Cast (Auto) (0-2) /LPF Urine Microscopic RBC (0-5) /HPF Urine Microscopic WBC (0-5) /HPF Ur Epithelial Cells (None Seen) /HPF Urine Bacteria (None Seen) /HPF Urine Culture Reflexed (NO) Influenza Type A Ag (NEGATIVE) Influenza Type B Ag (NEGATIVE) RSV (PCR) (Negative) SARS-CoV-2 (PCR) (NEGATIVE) Assessment/Plan (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 PT consulted for leg pain as this typically helps. has order for prn benadryl for sleep. Code(s): G03.2 - BENIGN RECURRENT MENINGITIS [MOLLARET] (2) Cephalgia Current Visit: No Status: Acute Onset Date: ~11/01/18 Code(s): R51 - HEADACHE * DO NOT USE * (3) Neck pain Current Visit: No Status: Acute Onset Date: ~11/01/18 Code(s): M54.2 - CERVICALGIA
[2022-12-26] MEDS: Cymbalta 30 MG Capsule PO SCH ×2 (09:53→21:24)
[2022-12-26] MEDS: THERAGRAN MULTIVITAMIN PO SCH (09:53)
[2022-12-26] MEDS: ECOTRIN 81 MG PO SCH (09:53)
[2022-12-26] MEDS: MINERAL OIL PO SCH ×3 (09:53→21:25)
[2022-12-26] MEDS ORDERED: NON-FORMULARY ITEM (Aspirin [Aspirin] 81 MG Tablet) PO SCH (10:00)
[2022-12-26] MEDS ORDERED: NON-FORMULARY ITEM (Multivitamin [Multi-Vitamin Daily] 1 EACH Tablet) PO SCH (10:00)
[2022-12-26] MEDS: HUMALOG SQ PRN ×2 (12:49→21:43)
[2022-12-26] MEDS ORDERED: Sterile H2O 10 ml IJ ONE (20:12)
[2022-12-26] MEDS: Protonix 40MG Tablet PO SCH (21:24)
[2022-12-26] MEDS: Vasotec 10 MG PO SCH (21:24)
[2022-12-27] MEDS: ZOVIRAX IV SCH ×3 (05:35→21:22)
[2022-12-27] MEDS: SODIUM CHLORIDE 0.9% IV SCH ×3 (05:35→21:22)
[2022-12-27] MEDS: MSIR 15 MG PO SCH ×4 (05:36→23:03)
[2022-12-27] MEDS: solu-CORTEF 100MG IV SCH ×3 (05:36→21:23)
[2022-12-27 05:40] LABS: BASOPHIL % 0.5 % (0.0-0.4); Basophil (Absolute #) 0.05 x10^3/uL (0-0.4); Eosinophil % 0.4 % (0.00-5.0); Eosinophil (Absolute #) 0.04 x10^3/uL (0-0.5); Hematocrit 41.3 % (42-50); IMMATURE GRAN # 0.04 x10^3u/L (0.00-0.03); IMMATURE GRAN % 0.4 % (0.00-0.4); Lymphocyte (Absolute #) 2.98 x10^3/uL (1.0-4.6); Lymphocytes % 30.9 % (24.0-44.0); Mean Cell Volume 90.6 fL (78-100); Mean Corpuscular Hemoglobin 28.5 pg (26-32); Mean Corpuscular Hgb Concent. 31.5 g/dL (32-36); Mean Platelet Volume 9.6 fL (7.5-11.0); Monocyte (Absolute #) 0.82 x10^3/uL (0.0-1.3); Monocytes % 8.5 % (0.0-12.0); Neutrophil % 59.3 % (36.0-66.0); Platelet Count 413 x10^3/uL (150-450); Red Blood Count 4.56 x10^6/uL (4.1-5.6); Red Cell Distribution Width 16.2 % (11.5-14.0); White Blood Count 9.6 x10^3/uL (4.0-10.5)
[2022-12-27 06:12] LABS: ALBUMIN 3.6 g/dL (3.5-5.0); ALKALINE PHOSPHATASE 78 U/L (38-126); ANION GAP 8.2 MEQ/L (5-15); BLOOD UREA NITROGEN 10 mg/dL (9-20); CHLORIDE 105 mmol/L (98-107); Carbon Dioxide 27 mmol/L (22-30); Creatinine 1 0.65 mg/dL (0.66-1.25); EST GLOMERULAR FILTRATION RATE > 60.0 ML/MIN; Glucose 177 mg/dL (74-106); SGOT/AST 25 U/L (17-59); SGPT/ALT 38 U/L (0-50); SODIUM 136 mmol/L (137-145); Total Protein 6.3 g/dL (6.3-8.2)
[2022-12-27] MEDS: HYDROMORPHONE 30 MG/30 ML-NS PCA IV PRN ×2 (07:12→14:06)
[2022-12-27] MEDS: Cymbalta 30 MG Capsule PO SCH ×2 (10:07→21:22)
[2022-12-27] MEDS: ECOTRIN 81 MG PO SCH (10:07)
[2022-12-27] MEDS: THERAGRAN MULTIVITAMIN PO SCH (10:07)
[2022-12-27] MEDS: MINERAL OIL PO SCH ×3 (10:08→21:24)
[2022-12-27] MEDS: Sodium Chloride 0.9% 1000 ML 1,000 ML IV SCH ×2 (11:44→23:17)
[2022-12-27] MEDS: HUMALOG SQ PRN ×3 (12:14→21:23)
[2022-12-27] MEDS ORDERED: Sterile H2O 10 ml IJ ONE (20:50)
[2022-12-27] MEDS: Vasotec 10 MG PO SCH (21:22)
[2022-12-27] MEDS: Protonix 40MG Tablet PO SCH (21:23)
[2022-12-27] MEDS: BENADRYL 50 MG/ML IV PRN (23:04)
[2022-12-28] MEDS: MSIR 15 MG PO SCH ×4 (05:17→23:04)
[2022-12-28] MEDS: ZOVIRAX IV SCH ×3 (05:19→21:17)
[2022-12-28] MEDS: solu-CORTEF 100MG IV SCH ×3 (05:19→21:18)
[2022-12-28] MEDS: SODIUM CHLORIDE 0.9% IV SCH ×3 (05:19→21:17)
[2022-12-28] MEDS: HYDROMORPHONE 30 MG/30 ML-NS PCA IV PRN ×2 (06:57→22:37)
[2022-12-28] MEDS: THERAGRAN MULTIVITAMIN PO SCH (09:51)
[2022-12-28] MEDS: ECOTRIN 81 MG PO SCH (09:51)
[2022-12-28] MEDS: Cymbalta 30 MG Capsule PO SCH ×2 (09:51→21:18)
[2022-12-28] MEDS: MINERAL OIL PO SCH ×3 (09:51→21:18)
[2022-12-28] MEDS: Sodium Chloride 0.9% 1000 ML 1,000 ML IV SCH (10:56)
[2022-12-28] MEDS: HUMALOG SQ PRN ×3 (11:52→21:54)
[2022-12-28] MEDS ORDERED: Sterile H2O 10 ml IJ ONE (21:04)
[2022-12-28] MEDS: Vasotec 10 MG PO SCH (21:18)
[2022-12-28] MEDS: Protonix 40MG Tablet PO SCH (21:18)
[2022-12-28] MEDS: BENADRYL 50 MG/ML IV PRN (23:04)
[2022-12-29] MEDS: solu-CORTEF 100MG IV SCH ×3 (05:00→21:07)
[2022-12-29] MEDS: ZOVIRAX IV SCH ×3 (05:00→21:07)
[2022-12-29] MEDS: MSIR 15 MG PO SCH ×4 (05:00→23:01)
[2022-12-29] MEDS: SODIUM CHLORIDE 0.9% IV SCH ×3 (05:00→21:07)
[2022-12-29] MEDS: Sodium Chloride 0.9% 1000 ML 1,000 ML IV SCH ×2 (07:09→21:07)
--- NOTE | 2022-12-29 08:27 | PCM.NOTE ---
Date and Time: 12/29/22825 Subjective Assessment: patient is doing well, still has some symptoms but is improving Objective Exam General Appearance: no apparent distress Neurologic Exam: alert, oriented x 3 Skin Exam: normal color, warm, dry Respiratory Exam: normal breath sounds, lungs clear, No respiratory distress Cardiovascular Exam: regular rate/rhythm, normal heart sounds Gastrointestinal/Abdomen Exam: soft, No tenderness, No mass OBJECTIVE DATA Vital Signs: Vital Signs - 24 hr Temp Pulse Resp BP Pulse Ox 12/29/22 07:39 95 12/29/22 07:12 18 96 12/29/22 05:06 97.5 F 64 18 157/77 97 12/28/22 23:41 97.4 F 76 20 162/97 96 12/28/22 19:37 97.2 F 91 H 18 137/94 98 12/28/22 18:50 97 12/28/22 18:38 96 12/28/22 16:00 97.3 F 91 H 17 134/79 96 12/28/22 12:00 98.7 F 75 17 134/61 96 12/28/22 08:42 96 Pain Assessment - Last Documented Pain Intensity [Neck] 9 Pain Intensity 8 Pain Scale Used 0-10 Pain Scale Intake and Output: Intake & Output 12/26/22 12/27/22 12/28/22 12/29/22 11:59 11:59 11:59 11:59 Intake Total 2280 8149 3229 1760 Output Total 4900 5923 7004 1650 Balance -2620 3274 -3097 110 Weight 111.8 kg 112 kg 112 kg 112.1 kg Lab Results: Lab Results-Last 24 Hours 12/28/22 12/28/22 12/28/22 Range/Units 11:28 16:10 21:26 POC Glucometer 328 H 228 H 265 H (74 to 106) mg/dL 12/29/22 Range/Units 06:34 POC Glucometer 171 H (74 to 106) mg/dL Assessment/Plan (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 slowly improving. Code(s): G03.2 - BENIGN RECURRENT MENINGITIS [MOLLARET] (2) Cephalgia Current Visit: No Status: Acute Onset Date: ~11/01/18 Code(s): R51 - HEADACHE * DO NOT USE * (3) Neck pain Current Visit: No Status: Acute Onset Date: ~11/01/18 Code(s): M54.2 - CERVICALGIA
[2022-12-29] MEDS: ECOTRIN 81 MG PO SCH (08:47)
[2022-12-29] MEDS: Cymbalta 30 MG Capsule PO SCH ×2 (08:47→21:07)
[2022-12-29] MEDS: THERAGRAN MULTIVITAMIN PO SCH (08:47)
[2022-12-29] MEDS: MINERAL OIL PO SCH ×3 (08:47→21:07)
[2022-12-29] MEDS: HYDROMORPHONE 30 MG/30 ML-NS PCA IV PRN (15:56)
[2022-12-29] MEDS ORDERED: Sterile H2O 10 ml IJ ONE (20:35)
[2022-12-29] MEDS: Vasotec 10 MG PO SCH (21:07)
[2022-12-29] MEDS: Protonix 40MG Tablet PO SCH (21:08)
[2022-12-29] MEDS: HUMALOG SQ PRN (21:40)
[2022-12-29] MEDS: BENADRYL 50 MG/ML IV PRN (23:01)
[2022-12-30] MEDS: MSIR 15 MG PO SCH (05:06)
[2022-12-30] MEDS: SODIUM CHLORIDE 0.9% IV SCH (05:06)
[2022-12-30] MEDS: solu-CORTEF 100MG IV SCH (05:06)
[2022-12-30] MEDS: ZOVIRAX IV SCH (05:06)
[2022-12-30 05:17] LABS: Absolute Neutrophil Ct (ANC) 6.48 x10^3/uL (1.4-6.9); BASOPHIL % 0.8 % (0.0-0.4); Basophil (Absolute #) 0.09 x10^3/uL (0-0.4); Eosinophil % 0.3 % (0.00-5.0); Eosinophil (Absolute #) 0.04 x10^3/uL (0-0.5); Hemoglobin 13.1 g/dL (12.5-18.0); IMMATURE GRAN # 0.06 x10^3u/L (0.00-0.03); IMMATURE GRAN % 0.5 % (0.00-0.4); Lymphocyte (Absolute #) 4.15 x10^3/uL (1.0-4.6); Lymphocytes % 35.6 % (24.0-44.0); Mean Cell Volume 89.3 fL (78-100); Mean Corpuscular Hemoglobin 28.5 pg (26-32); Mean Platelet Volume 9.5 fL (7.5-11.0); Monocyte (Absolute #) 0.85 x10^3/uL (0.0-1.3); Monocytes % 7.3 % (0.0-12.0); Neutrophil % 55.5 % (36.0-66.0); Platelet Count 411 x10^3/uL (150-450); Red Blood Count 4.59 x10^6/uL (4.1-5.6); Red Cell Distribution Width 15.9 % (11.5-14.0); White Blood Count 11.7 x10^3/uL (4.0-10.5)
[2022-12-30 06:00] LABS: ALBUMIN 3.7 g/dL (3.5-5.0); ALKALINE PHOSPHATASE 80 U/L (38-126); ANION GAP 11.4 MEQ/L (5-15); BLOOD UREA NITROGEN 11 mg/dL (9-20); CHLORIDE 102 mmol/L (98-107); Carbon Dioxide 27 mmol/L (22-30); Creatinine 1 0.63 mg/dL (0.66-1.25); EST GLOMERULAR FILTRATION RATE > 60.0 ML/MIN; Glucose 185 mg/dL (74-106); Potassium 4.2 mmol/L (3.5-5.1); SGOT/AST 23 U/L (17-59); SGPT/ALT 31 U/L (0-50); SODIUM 137 mmol/L (137-145); Total Protein 6.4 g/dL (6.3-8.2)
[2022-12-30 06:57] VITALS: BP 141/82; PULSE 63
[2022-12-30] MEDS: HUMALOG SQ PRN (07:45)
[2022-12-30] MEDS: HYDROMORPHONE 30 MG/30 ML-NS PCA IV PRN (07:58)
[2022-12-30 08:02] VITALS: O2SAT 98
--- NOTE | 2022-12-30 08:46 | PCM.DS ---
Discharge Summary Date of Admission: 12/25/22 16:17 Admitting Physician: ANN ALEXIS Primary Care Provider: ANN ALEXIS Allergies Allergies pregabalin [From Lyrica] Adverse Reaction (Severe, Verified 12/25/22 13:50) Hives SOB hives azithromycin [From Zmax] Adverse Reaction (Mild, Verified 12/25/22 13:50) vomiting Hospital Summary - Hospital Course Hospital Course: patient admitted with head, neck pain consistent with acute flare of chronic aseptic meningitis. has progressed with usual treatment and back to his baseline, ready for discharge. - Vitals & Intake/Output Vital Signs: Vital Signs Temperature 98.0 F 12/30/22 06:56 Pulse Rate 63 12/30/22 06:56 Respiratory Rate 18 12/30/22 07:58 Blood Pressure 141/82 12/30/22 06:56 O2 Sat by Pulse Oximetry 98 12/30/22 07:58 Intake & Output: Intake & Output 12/27/22 12/28/22 12/29/22 12/30/22 11:59 11:59 11:59 11:59 Intake Total 8149 3229 2120 5578 Output Total 5975 7075 6360 5476 Balance 8892 -9221 -7626 1129 Weight 112 kg 112 kg 112.1 kg 112.1 kg - Lab Result Diagrams: 12/30/22 04:00 12/30/22 05:24 Lab Results-Last 24 Hrs: Lab Results-Last 24 Hours 12/29/22 12/29/22 12/29/22 Range/Units 11:16 16:00 21:24 WBC (4.0-10.5) x10^3/uL RBC (4.1-5.6) x10^6/uL Hgb (12.5-18.0) g/dL Hct (42-50) % MCV (78-100) fL MCH (26-32) pg MCHC (32-36) g/dL RDW (11.5-14.0) % Plt Count (150-450) x10^3/uL MPV (7.5-11.0) fL Gran % (36.0-66.0) % Immature Gran % (Auto) (0.00-0.4) % Nucleat RBC Rel Count (0.00-0.1) % Eos # (Auto) (0-0.5) x10^3/uL Immature Gran # (Auto) (0.00-0.03) x10^3u/L Absolute Lymphs (auto) (1.0-4.6) x10^3/uL Absolute Monos (auto) (0.0-1.3) x10^3/uL Absolute Nucleated RBC (0.00-0.01) x10^3u/L Lymphocytes % (24.0-44.0) % Monocytes % (0.0-12.0) % Eosinophils % (0.00-5.0) % Basophils % (0.0-0.4) % Absolute Granulocytes (1.4-6.9) x10^3/uL Basophils # (0-0.4) x10^3/uL Sodium (137-145) mmol/L Potassium (3.5-5.1) mmol/L Chloride (98-107) mmol/L Carbon Dioxide (22-30) mmol/L Anion Gap (5-15) MEQ/L BUN (9-20) mg/dL Creatinine (0.66-1.25) mg/dL Estimated GFR ML/MIN Glucose (74-106) mg/dL POC Glucometer 238 H 215 H 257 H (74 to 106) mg/dL Calcium (8.4-10.2) mg/dL Total Bilirubin (0.2-1.3) mg/dL AST (17-59) U/L ALT (0-50) U/L Alkaline Phosphatase (38-126) U/L Serum Total Protein (6.3-8.2) g/dL Albumin (3.5-5.0) g/dL 12/30/22 12/30/22 12/30/22 Range/Units 04:00 05:24 06:42 WBC 11.7 H (4.0-10.5) x10^3/uL RBC 4.59 (4.1-5.6) x10^6/uL Hgb 13.1 (12.5-18.0) g/dL Hct 41.0 L (42-50) % MCV 89.3 (78-100) fL MCH 28.5 (26-32) pg MCHC 32.0 (32-36) g/dL RDW 15.9 H (11.5-14.0) % Plt Count 411 (150-450) x10^3/uL MPV 9.5 (7.5-11.0) fL Gran % 55.5 (36.0-66.0) % Immature Gran % (Auto) 0.5 H (0.00-0.4) % Nucleat RBC Rel Count 0.0 (0.00-0.1) % Eos # (Auto) 0.04 (0-0.5) x10^3/uL Immature Gran # (Auto) 0.06 H (0.00-0.03) x10^3u/L Absolute Lymphs (auto) 4.15 (1.0-4.6) x10^3/uL Absolute Monos (auto) 0.85 (0.0-1.3) x10^3/uL Absolute Nucleated RBC 0.00 (0.00-0.01) x10^3u/L Lymphocytes % 35.6 (24.0-44.0) % Monocytes % 7.3 (0.0-12.0) % Eosinophils % 0.3 (0.00-5.0) % Basophils % 0.8 (0.0-0.4) % Absolute Granulocytes 6.48 (1.4-6.9) x10^3/uL Basophils # 0.09 (0-0.4) x10^3/uL Sodium 137 (137-145) mmol/L Potassium 4.2 (3.5-5.1) mmol/L Chloride 102 (98-107) mmol/L Carbon Dioxide 27 (22-30) mmol/L Anion Gap 11.4 (5-15) MEQ/L BUN 11 (9-20) mg/dL Creatinine 0.63 L (0.66-1.25) mg/dL Estimated GFR > 60.0 ML/MIN Glucose 185 H (74-106) mg/dL POC Glucometer 160 H (74 to 106) mg/dL Calcium 8.0 L (8.4-10.2) mg/dL Total Bilirubin 0.30 (0.2-1.3) mg/dL AST 23 (17-59) U/L ALT 31 (0-50) U/L Alkaline Phosphatase 80 (38-126) U/L Serum Total Protein 6.4 (6.3-8.2) g/dL Albumin 3.7 (3.5-5.0) g/dL Micro Results-Entire Visit: Accuchecks Date 12/30/22 Date 12/29/22 Date 12/29/22 Date 12/29/22 Time 06:56 Time 21:31 Time 17:12 Time 12:48 Discharge Exam General Appearance: no apparent distress, obese Neurologic Exam: alert, oriented x 3 Respiratory Exam: normal breath sounds, lungs clear, No respiratory distress Cardiovascular Exam: regular rate/rhythm, normal heart sounds Gastrointestinal/Abdomen Exam: soft, No tenderness, No mass Skin Exam: normal color, warm, dry Final Diagnosis/Problem List - Final Discharge Diagnosis/Problem (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 Assessment & Plan: home on po acyclovir and steroids, continue home meds Code(s): G03.2 - BENIGN RECURRENT MENINGITIS [MOLLARET] (2) Cephalgia Current Visit: No Status: Acute Onset Date: ~11/01/18 Code(s): R51 - HEADACHE * DO NOT USE * (3) Neck pain Current Visit: No Status: Acute Onset Date: ~11/01/18 Code(s): M54.2 - CERVICALGIA - Discharge Disposition: Home, Self-Care Condition: Good Prescriptions: New Acyclovir 1 tab PO TID #21 tablet Methylprednisolone Packet [Medrol Dosepack] 4 mg PO UD #21 packet Continue Enalapril Maleate 10 mg [Vasotec 10 MG] 20 mg PO HS Multivitamin [Multi-Vitamin Daily] 1 each PO DAILY Aspirin 81 mg PO DAILY Testosterone Cypionate 1 ml IM UD Duloxetine HCl [Cymbalta] 60 mg PO BID Metformin HCl 500 mg [Glucophage 500 MG] 1,000 mg PO BIDWM Atorvastatin Calcium [Lipitor] 10 mg PO HS Morphine Sulfate Ir 15 mg [Msir 15 mg] 15 mg PO 0600,1200,1800,0000 Mineral Oil 30 ml PO TID Prednisone 20 mg [Deltasone 20 mg] 15 mg PO DAILY Esomeprazole Magnesium [Nexium 24Hr] 40 mg PO HS Follow up with: ANN ALEXIS MD [Primary Care Provider] - 01/06/23 10:30 am
[2022-12-30] MEDS: Cymbalta 30 MG Capsule PO SCH (09:26)
[2022-12-30] MEDS: THERAGRAN MULTIVITAMIN PO SCH (09:27)
[2022-12-30] MEDS: MINERAL OIL PO SCH (09:27)
[2022-12-30] MEDS: ECOTRIN 81 MG PO SCH (09:27)
== END 2022-12-30 09:42 | disposition home or self-care (01) | DRG 76 ==
LOC: ED 13:38 → MED SURG 15:35 → OBSVTOIN 16:17
PROVIDERS: ADMIT Family Medicine; ATTEND Family Medicine
DX: G03.2 Benign recurrent meningitis [Mollaret] (principal); M54.2 Cervicalgia; I10 Essential (primary) hypertension; G47.30 Sleep apnea, unspecified; Z79.899 Other long term (current) drug therapy; Z20.828 Contact with and (suspected) exposure to other viral communicable diseases
CPT/HCPCS: 0241U; 36000; 36415; 80048; 80053; 81001; 82947; 85025; 94762; 96365; 96374; 96375; 99285; J0133; J1170; J1200; J1720; J1817; J2405; A9270-GY

== ENCOUNTER 2023-01-16 11:54 | Inpatient (IN) | payer BC, MEDICARE ==
[2023-01-16] MEDS ORDERED: Sodium Chloride 0.9% 1000 ML 1,000 ML IV STA (15:28)
[2023-01-16 15:59] LABS: Absolute Neutrophil Ct (ANC) 5.25 x10^3/uL (1.4-6.9); BASOPHIL % 0.7 % (0.0-0.4); Basophil (Absolute #) 0.06 x10^3/uL (0-0.4); Eosinophil % 4.5 % (0.00-5.0); Eosinophil (Absolute #) 0.39 x10^3/uL (0-0.5); Hematocrit 48.8 % (42-50); Hemoglobin 15.9 g/dL (12.5-18.0); IMMATURE GRAN # 0.04 x10^3u/L (0.00-0.03); IMMATURE GRAN % 0.5 % (0.00-0.4); Lymphocyte (Absolute #) 2.15 x10^3/uL (1.0-4.6); Lymphocytes % 24.8 % (24.0-44.0); Mean Cell Volume 89.9 fL (78-100); Mean Corpuscular Hemoglobin 29.3 pg (26-32); Mean Corpuscular Hgb Concent. 32.6 g/dL (32-36); Mean Platelet Volume 9.6 fL (7.5-11.0); Monocyte (Absolute #) 0.77 x10^3/uL (0.0-1.3); Monocytes % 8.9 % (0.0-12.0); Neutrophil % 60.6 % (36.0-66.0); Platelet Count 364 x10^3/uL (150-450); Red Blood Count 5.43 x10^6/uL (4.1-5.6); Red Cell Distribution Width 15.4 % (11.5-14.0); White Blood Count 8.7 x10^3/uL (4.0-10.5)
[2023-01-16] MEDS ORDERED: Sodium Chloride 0.9% 1000 ML 1,000 ML ONE (16:03)
[2023-01-16 16:04] LABS: Erythrocyte Sedimentation Rate 22 mm/hr (0-15)
[2023-01-16 16:17] LABS: ALBUMIN 4.4 g/dL (3.5-5.0); ALKALINE PHOSPHATASE 96 U/L (38-126); BLOOD UREA NITROGEN 8 mg/dL (9-20); CHLORIDE 98 mmol/L (98-107); Calcium 9.3 mg/dL (8.4-10.2); Carbon Dioxide 33 mmol/L (22-30); Creatinine 1 0.81 mg/dL (0.66-1.25); EST GLOMERULAR FILTRATION RATE > 60.0 ML/MIN; Glucose 116 mg/dL (74-106); MAGNESIUM 1.8 mg/dL (1.6-2.3); Potassium 4.2 mmol/L (3.5-5.1); SGOT/AST 56 U/L (17-59); SGPT/ALT 37 U/L (0-50); SODIUM 138 mmol/L (137-145); Total Protein 7.6 g/dL (6.3-8.2)
[2023-01-16 16:36] LABS: INFLUENZA A NEGATIVE (NEGATIVE); INFLUENZA B NEGATIVE (NEGATIVE); RESPIRATORY SYNCTIAL VIRUS NEGATIVE (NEGATIVE); SARS-CoV-2 Xpert Express NEGATIVE (NEGATIVE)
[2023-01-16] MEDS ORDERED: Hydromorphone 1 mg/ml Injection IV ONE (17:01)
--- NOTE | 2023-01-16 17:09 | ERPHSYRPT ---
- History of Present Illness Source: patient Exam Limitations: no limitations Patient Subjective Stated Complaint: pt here for pain to head and neck. this is hes chronic pain, and has had normal meds Triage Nursing Assessment: pt alert, resp easy, skin w/d/p. no edema noted Physician History: 53yo M w/ hx of chronic viral meningitis requiring frequent admissions presents to the ED w/ worsening pain, numbness/tingling and b/l LE weakness since yesterday. His last admission was in December of this year. The pain starts at his neck to radiates down to his thighs. He describes the pain a constant, stabbing 9/10 pain. His last MRI was 2 years ago per patient. He denies fever, chills, nausea, vomiting, diarrhea, CP, abd pain, confusion or focal weakness. Timing/Duration: yesterday Severity: severe Character of Deficits: altered sensation Deficits: off balance, decrease ability to stand, decrease ability to walk, weak Baseline/Normal Cognition: alert oriented x 3 Current Cognition: alert oriented x 3 Baseline Gait: walks w/o assistance Associated Symptoms: fatigue, weakness, numbness/tingling in legs/feet, paresthesia, trouble walking, headache, No confusion, No fever, No chills, No loss of consciousness, No nausea, No vomiting, No seizures, No slurred speech, No vision changes, No chest pain Allergies/Adverse Reactions: pregabalin [From Lyrica] Adverse Reaction (Severe, Verified 01/16/23 18:08) Hives SOB hives azithromycin [From Zmax] Adverse Reaction (Mild, Verified 01/16/23 18:08) vomiting Home Medications: Aspirin 81 mg PO DAILY 01/24/14 [History] Enalapril Maleate 10 mg [Vasotec 10 MG] 20 mg PO HS 01/24/14 [History] Multivitamin [Multi-Vitamin Daily] 1 each PO DAILY 01/24/14 [History] Testosterone Cypionate 1 ml IM UD 10/09/14 [History] Duloxetine HCl [Cymbalta] 60 mg PO BID 04/23/15 [History] Metformin HCl 500 mg [Glucophage 500 MG] 1,000 mg PO BIDWM 04/20/20 [History] Atorvastatin Calcium [Lipitor] 10 mg PO HS 01/06/22 [History] Morphine Sulfate Ir 15 mg [Msir 15 mg] 15 mg PO 0600,1200,1800,0000 02/07/22 [History] Mineral Oil 30 ml PO TID 10/30/22 [History] Esomeprazole Magnesium [Nexium 24Hr] 40 mg PO HS 12/25/22 [History] Prednisone 20 mg [Deltasone 20 mg] 15 mg PO DAILY 12/25/22 [History] Hx Tetanus, Diphtheria Vaccination/Date Given: Yes (february 2016) Hx Influenza Vaccination/Date Given: No (Doesn't get one) Hx Pneumococcal Vaccination/Date Given: Yes Immunizations Up to Date: Yes Travel Risk - International Travel Have you traveled outside of the country in past 3 weeks: No - Coronavirus Screening Are you exhibiting any of the following symptoms?: No - Vaccine Status Have you recieved a Covid-19 vaccination: Yes 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 - Review of Systems Constitutional: Weakness, No Fever, No Chills Ears, Nose, & Throat: No Symptoms Respiratory: No Symptoms Cardiac: No Symptoms Abdominal/Gastrointestinal: No Symptoms Genitourinary Symptoms: No Symptoms Musculoskeletal: Back Pain, Neck Pain, Myalgias, No Injury, No Joint Redness Skin: No Symptoms Neurological: Headache, Other (b/l LE strength 3/5), No Dizziness Psychological: No Symptoms All Other Systems: Reviewed and Negative - Past Medical History Pertinent Past Medical History: Yes Neurological History: Other ENT History: No Pertinent History Cardiac History: Hypertension Respiratory History: Sleep Apnea Endocrine Medical History: Other Musculoskeletal History: No Pertinent History GI Medical History: GERD History: No Pertinent History Psycho-Social History: Depression Male Reproductive Disorders: No Pertinent History Other Medical History: Mollaret's, spleen removed - Past Surgical History Past Surgical History: Yes Neuro Surgical History: No Pertinent History Cardiac: No Pertinent History Respiratory: No Pertinent History Gastrointestinal: Appendectomy, Other Genitourinary: No Pertinent History Musculoskeletal: No Pertinent History Male Surgical History: Vasectomy Other Surgical History: splenectomy, 2 nasal surgeries - Social History Smoking Status: Never smoker Exposure to second hand smoke: No Alcohol Use: None Drug Use: none Patient Lives Alone: No Significant Family History: no pertinent family hx - Nursing Vital Signs Nursing Vital Signs: Initial Vital Signs Temperature 96.9 F 01/16/23 12:24 Pulse Rate 85 01/16/23 12:24 Respiratory Rate 18 01/16/23 12:24 Blood Pressure 140/94 01/16/23 12:24 O2 Sat by Pulse Oximetry 96 01/16/23 12:24 Pain Scale Pain Intensity [Neck] 9 Pain Intensity 9 - Tracy Coma Scale Best Eye Response (Tracy): (4) open spontaneously Best Verbal Response (Avery): (5) oriented Best Motor Response (Tracy): (6) obeys commands Tracy Total: 15 - Physical Exam General Appearance: moderate distress, alert Eye Exam: bilateral eye: normal inspection, PERRL, EOMI Ears, Nose, Throat Exam: normal ENT inspection Neck Exam: normal inspection, limited range of motion, midline tenderness Respiratory: normal breath sounds, lungs clear, airway intact, No respiratory distress Cardiovascular: regular rate/rhythm, normal heart sounds, capillary refill <2 sec Gastrointestinal: soft, normal bowel sounds, No tenderness Back Exam: normal inspection, vertebral tenderness, decreased range of motion Extremity Exam: normal inspection, limited range of motion, No swelling Mental Status: alert, oriented x 3, cooperative dietetic intern Exam: normal hearing, normal speech, PERRL, tongue midline Motor/Sensory: weak motor strength RLE, weak motor strength LLE Skin Exam: normal color, warm, dry, No rash SpO2 Interpretation: normal SpO2: 98 O2 Delivery: Room Air - Course Nursing assessment & vital signs reviewed: Yes Ordered Tests: Active Orders 24 hr Category Date Time Status Code Status Order ROUTINE Care 01/16/23 17:23 Active Code Status Order ROUTINE Care 01/16/23 17:23 Completed IV Care Q6H Care 01/16/23 17:23 Active IV Care Q6H Care 01/16/23 17:[address] in Observation ROUTINE Care 01/16/23 17:23 Active House Regular Diet Diet 01/16/23 Dinner Active MRI C-SPINE WITH CONTRAST [MRI] Stat Exams 01/16/23 17:23 Ordered MRI L-SPINE WITH CONTRAST [MRI] Stat Exams 01/16/23 17:23 Ordered MRI T-SPINE WITH CONTRAST [MRI] Stat Exams 01/16/23 17:23 Ordered BMP AM.LAB Lab 01/17/23 04:00 Ordered CBC W DIFF AM.LAB Lab 01/17/23 04:00 Ordered CBC W DIFF Stat Lab 01/16/23 15:59 Completed CMP Stat Lab 01/16/23 15:59 Completed Erythrocyte Sedimentation Rate Stat Lab 01/16/23 15:59 Completed MAGNESIUM Stat Lab 01/16/23 15:59 Completed Medication Summary Generic Name Dose Route Start Last Admin Trade Name Freq PRN Reason Stop Dose Admin Duloxetine HCl 60 mg 01/16/23 22:00 01/16/23 21:27 Duloxetine Hcl 30 Mg Cap PO 02/15/23 21:59 60 mg BID GLENNA Administration Enalapril Maleate 20 mg 01/16/23 22:00 01/16/23 21:26 Enalapril Maleate 10 Mg 10 Mg Tablet PO 02/15/23 21:59 20 mg HS GLENNA Administration Hydrocortisone Sodium Succinate 100 mg 01/16/23 19:45 01/16/23 21:27 Hydrocortisone Sod Succinate 100 Mg/Vial Vial IV 02/15/23 19:44 100 mg Q8H GLENNA Administration Hydromorphone/Sodium Chloride 0 mg 01/16/23 17:35 01/16/23 17:46 Hydromorphone/Nacl/Pf 30 Mg/30 Ml Bottom Loader.Syring IV 02/15/23 17:34 30 mg .STANDARD PRECISION LENS TECHNICIAN DOSING PRN Administration Sodium Chloride 1,000 mls @ 100 mls/hr 01/16/23 17:23 01/16/23 17:33 Sodium Chloride 0.9% 1000 Ml IV 02/15/23 17:22 100 mls/hr .Q10H GLENNA Administration Acyclovir Sodium 1,000 mg/ 250 mls @ 166.667 mls/hr 01/16/23 19:45 01/16/23 21:27 Sodium Chloride IV 02/15/23 19:44 166.667 mls/hr Q8H GLENNA Administration Insulin Human Lispro 0 unit 01/16/23 18:30 01/16/23 21:44 Insulin Lispro 1 Unit SQ 02/15/23 18:29 2 unit UD PRN Administration HYPERGLYCEMIA Metformin HCl 1,000 mg 01/17/23 08:00 Metformin Hcl 500 Mg Tablet PO 02/16/23 07:59 BIDWM GLENNA Mineral Oil 30 ml 01/16/23 22:00 01/16/23 23:40 Mineral Oil 1 Ml Ml PO 02/15/23 21:59 Not Given TID GLENNA Morphine Sulfate 15 mg 01/16/23 22:00 01/16/23 21:26 Morphine Sulfate 15 Mg Tablet Immediate Release PO 01/21/23 21:59 15 mg QID GLENNA Administration Pantoprazole Sodium 40 mg 01/17/23 10:00 Pantoprazole 40 Mg Vial IV 02/16/23 09:59 Q24H10 GLENNA Pantoprazole Sodium 40 mg 01/16/23 22:00 01/16/23 21:27 Protonix (Pantoprazole) 40 Mg Tablet PO 02/15/23 21:59 40 mg HS GLENNA Administration Simvastatin 10 mg 01/16/23 22:00 01/16/23 21:27 Simvastatin 10 Mg Tablet PO 02/15/23 21:59 10 mg HS GLENNA Administration Discontinued Medications Generic Name Dose Route Start Last Admin Trade Name Marvinq PRN Reason Stop Dose Admin Acyclovir Sodium Confirm 01/16/23 21:23 Acyclovir Sodium 500 Mg/Vial Vial Administered 01/16/23 21:24 Dose 1,000 mg IV .STK-MED ONE Hydromorphone HCl 2 mg 01/16/23 17:01 01/16/23 17:32 Hydromorphone 1 Mg/1ml Inj 1 Mg/Ml Syringe IV 01/16/23 17:02 2 mg STAT ONE Administration Sodium Chloride 1,000 mls @ 999 mls/hr 01/16/23 15:28 01/16/23 17:20 Sodium Chloride 0.9% 1000 Ml IV 01/16/23 16:28 Infused .Q1H1M STA Infusion Sodium Chloride Confirm 01/16/23 16:03 Sodium Chloride 0.9% 1000 Ml Administered 01/16/23 16:04 Dose 1,000 mls @ ud .ROUTE .STK-MED ONE Sodium Chloride Confirm 01/16/23 21:24 Sodium Chloride 0.9% 250 Ml Administered 01/16/23 21:25 Dose 250 mls @ ud IV .STK-MED ONE Non-Formulary Medication 1 each 01/16/23 17:23 01/16/23 18:35 Pharmacy Dose: Dilaudid Bottom Loader 1 Each Each IV 01/16/23 17:24 1 each UD STA Administration Pantoprazole Sodium Confirm 01/16/23 21:18 Pantoprazole 40 Mg Vial Administered 01/16/23 21:19 Dose 40 mg IV .STK-MED ONE Lab/Rad Data: Laboratory Result Diagrams 01/16/23 15:59 01/16/23 15:59 Laboratory Results 01/16/23 01/16/23 01/16/23 Range/Units 15:59 15:59 15:58 WBC 8.7 (4.0-10.5) x10^3/uL RBC 5.43 (4.1-5.6) x10^6/uL Hgb 15.9 (12.5-18.0) g/dL Hct 48.8 (42-50) % MCV 89.9 (78-100) fL MCH 29.3 (26-32) pg MCHC 32.6 (32-36) g/dL RDW 15.4 H (11.5-14.0) % Plt Count 364 (150-450) x10^3/uL MPV 9.6 (7.5-11.0) fL Gran % 60.6 (36.0-66.0) % Immature Gran % (Auto) 0.5 H (0.00-0.4) % Nucleat RBC Rel Count 0.0 (0.00-0.1) % Eos # (Auto) 0.39 (0-0.5) x10^3/uL Immature Gran # (Auto) 0.04 H (0.00-0.03) x10^3u/L Absolute Lymphs (auto) 2.15 (1.0-4.6) x10^3/uL Absolute Monos (auto) 0.77 (0.0-1.3) x10^3/uL Absolute Nucleated RBC 0.00 (0.00-0.01) x10^3u/L Lymphocytes % 24.8 (24.0-44.0) % Monocytes % 8.9 (0.0-12.0) % Eosinophils % 4.5 (0.00-5.0) % Basophils % 0.7 (0.0-0.4) % Absolute Granulocytes 5.25 (1.4-6.9) x10^3/uL Basophils # 0.06 (0-0.4) x10^3/uL ESR 22 H (0-15) mm/hr Sodium 138 (137-145) mmol/L Potassium 4.2 (3.5-5.1) mmol/L Chloride 98 (98-107) mmol/L Carbon Dioxide 33 H (22-30) mmol/L Anion Gap 11.0 (5-15) MEQ/L BUN 8 L (9-20) mg/dL Creatinine 0.81 (0.66-1.25) mg/dL Estimated GFR > 60.0 ML/MIN Glucose 116 H (74-106) mg/dL Calcium 9.3 (8.4-10.2) mg/dL Magnesium 1.8 (1.6-2.3) mg/dL Total Bilirubin 0.50 (0.2-1.3) mg/dL AST 56 (17-59) U/L ALT 37 (0-50) U/L Alkaline Phosphatase 96 (38-126) U/L Serum Total Protein 7.6 (6.3-8.2) g/dL Albumin 4.4 (3.5-5.0) g/dL Influenza Type A Ag NEGATIVE (NEGATIVE) Influenza Type B Ag NEGATIVE (NEGATIVE) RSV (PCR) NEGATIVE (NEGATIVE) SARS-CoV-2 (PCR) NEGATIVE (NEGATIVE) - Progress Progress: unchanged Progress Note: Discussed case w/ Dr. Pardo who agrees to admit. Recommended Dilaudid PRECISION LENS TECHNICIAN pharmacy to dose, IV acyclovir and Solucortef. MRI of spine ordered for further evaluation. 01/17/23 03:[address] Ivory Will see patient in: hospital (observation) Medical Desision Making - Discussion of managment Care discussed with:: PCP Reviewed:: Need for additional workup Agreed on:: Treatment plan Will see patient: in hospital - Diagnostic Testing Diagnostic test were ordered, analyzed, and reviewed by me: Yes Radiological Interpretation: Reviewed by me - Risk of complications The pt has a high risk of morbidity or mortality based on: Decision regarding hospitilization or escalation of hosp level of care - Departure Departure Disposition: Observation Clinical Impression: Viral meningitis, Intractable pain Condition: Stable Critical Care Time: No
[2023-01-16] MEDS ORDERED: PHARMACY DOSING REQUIRED: DILAUDID PCA IV STA (17:23)
[2023-01-16] MEDS: Sodium Chloride 0.9% 1000 ML 1,000 ML IV SCH (17:33)
[2023-01-16] MEDS: HYDROMORPHONE 30 MG/30 ML-NS PCA IV PRN (17:46)
[2023-01-16] MEDS ORDERED: PROTONIX 40 MG IV IV ONE (21:18)
[2023-01-16] MEDS ORDERED: MSIR 15 MG ONE (21:18)
[2023-01-16] MEDS ORDERED: Zovirax INJ IV ONE (21:23)
[2023-01-16] MEDS ORDERED: Sodium Chloride 0.9% 250 ML 250 ML IV ONE (21:24)
[2023-01-16] MEDS: Vasotec 10 MG PO SCH (21:26)
[2023-01-16] MEDS: MSIR 15 MG PO SCH (21:26)
[2023-01-16] MEDS: ZOVIRAX IV SCH (21:27)
[2023-01-16] MEDS: Zocor 10MG PO SCH (21:27)
[2023-01-16] MEDS: Protonix 40MG Tablet PO SCH (21:27)
[2023-01-16] MEDS: solu-CORTEF 100MG IV SCH (21:27)
[2023-01-16] MEDS: SODIUM CHLORIDE 0.9% IV SCH (21:27)
[2023-01-16] MEDS: Cymbalta 30 MG Capsule PO SCH (21:27)
[2023-01-16] MEDS: HUMALOG SQ PRN (21:44)
[2023-01-16] MEDS: MINERAL OIL PO SCH (23:40)
[2023-01-17] MEDS ORDERED: Sodium Chloride 0.9% 1000 ML 1,000 ML ONE (03:37)
[2023-01-17] MEDS ORDERED: MSIR 15 MG ONE (03:37)
[2023-01-17] MEDS ORDERED: Zovirax INJ IV ONE ×2 (03:37→03:49)
[2023-01-17] MEDS ORDERED: Sodium Chloride 0.9% 250 ML 250 ML IV ONE (03:37)
[2023-01-17] MEDS: Sodium Chloride 0.9% 1000 ML 1,000 ML IV SCH ×2 (03:42→16:43)
[2023-01-17] MEDS ORDERED: MSIR 15 MG PO SCH (03:45)
[2023-01-17] MEDS: MSIR 15 MG PO SCH ×4 (03:46→23:25)
[2023-01-17] MEDS: solu-CORTEF 100MG IV SCH ×3 (03:49→18:20)
[2023-01-17] MEDS: ZOVIRAX IV SCH ×3 (03:51→18:20)
[2023-01-17] MEDS: SODIUM CHLORIDE 0.9% IV SCH ×3 (03:51→18:20)
[2023-01-17 06:31] LABS: Absolute Neutrophil Ct (ANC) 4.28 x10^3/uL (1.4-6.9); BASOPHIL % 0.8 % (0.0-0.4); Basophil (Absolute #) 0.05 x10^3/uL (0-0.4); Eosinophil % 3.2 % (0.00-5.0); Eosinophil (Absolute #) 0.21 x10^3/uL (0-0.5); Hemoglobin 13.7 g/dL (12.5-18.0); IMMATURE GRAN # 0.04 x10^3u/L (0.00-0.03); IMMATURE GRAN % 0.6 % (0.00-0.4); Lymphocyte (Absolute #) 1.53 x10^3/uL (1.0-4.6); Mean Cell Volume 91.3 fL (78-100); Mean Corpuscular Hemoglobin 28.4 pg (26-32); Mean Corpuscular Hgb Concent. 31.1 g/dL (32-36); Mean Platelet Volume 10.1 fL (7.5-11.0); Monocyte (Absolute #) 0.55 x10^3/uL (0.0-1.3); Monocytes % 8.3 % (0.0-12.0); Neutrophil % 64.1 % (36.0-66.0); Platelet Count 345 x10^3/uL (150-450); Red Blood Count 4.82 x10^6/uL (4.1-5.6); Red Cell Distribution Width 15.1 % (11.5-14.0); White Blood Count 6.7 x10^3/uL (4.0-10.5)
[2023-01-17 07:03] LABS: BLOOD UREA NITROGEN 10 mg/dL (9-20); CHLORIDE 101 mmol/L (98-107); Calcium 8.4 mg/dL (8.4-10.2); Carbon Dioxide 26 mmol/L (22-30); Creatinine 1 0.71 mg/dL (0.66-1.25); EST GLOMERULAR FILTRATION RATE > 60.0 ML/MIN; Glucose 208 mg/dL (74-106); Potassium 4.2 mmol/L (3.5-5.1); SODIUM 135 mmol/L (137-145)
[2023-01-17] MEDS: Glucophage 500 MG PO SCH ×2 (08:40→16:43)
[2023-01-17] MEDS: HUMALOG SQ PRN ×4 (08:40→21:40)
[2023-01-17] MEDS: HYDROMORPHONE 30 MG/30 ML-NS PCA IV PRN (08:41)
[2023-01-17] MEDS ORDERED: MEDICATION INTERVENTION MC SCH (09:45)
[2023-01-17] MEDS ORDERED: TESTOSTERONE CYPIONATE 100 MG/ML IM SCH (09:45)
[2023-01-17] MEDS ORDERED: NON-FORMULARY ITEM (Multivitamin [Multi-Vitamin Daily] 1 EACH Tablet) PO SCH (10:00)
[2023-01-17] MEDS ORDERED: NON-FORMULARY ITEM (Aspirin [Aspirin] 81 MG Tablet) PO SCH (10:00)
[2023-01-17] MEDS: THERAGRAN MULTIVITAMIN PO SCH (11:17)
[2023-01-17] MEDS: Cymbalta 30 MG Capsule PO SCH ×2 (11:17→21:40)
[2023-01-17] MEDS: PROTONIX 40 MG IV IV SCH (11:17)
[2023-01-17] MEDS: ECOTRIN 81 MG PO SCH (11:17)
[2023-01-17] MEDS: MINERAL OIL PO SCH ×3 (11:17→21:47)
[2023-01-17] MEDS ORDERED: Sterile H2O 10 ml IJ ONE ×2 (11:21→18:18)
--- NOTE | 2023-01-17 13:16 | PCM.HP ---
History of Present Illness - Chief Complaint Chief Complaint: VIRAL MENINGITIS FLARE (MOLARETTES) History of Present Illness: is a 53 year old male patient of Dr Pardo w/ hx of chronic viral meningitis requiring frequent admissions presents to the ED w/ worsening pain, numbness/tingling and b/l LE weakness since yesterday. His last admission was in December of this year. The pain starts at his neck to radiates down to his thighs. He describes the pain a constant, stabbing 9/10 pain. His last MRI was 2 years ago per patient. He denies fever, chills, nausea, vomiting, diarrhea, CP, abd pain, confusion or focal weakness. ER discussed case with Dr. Pardo who agrees to admit ptn to [facility]. Recommended Dilaudid QA ENGINEER pharmacy to dose, IV acyclovir and Solucortef. MRI of spine was ordered for further evaluation. Medications & Allergies Home Medications: Home Medication List Aspirin 81 mg PO DAILY 01/24/14 [History Confirmed 01/16/23] Enalapril Maleate 10 mg [Vasotec 10 MG] 20 mg PO HS 01/24/14 [History Confirmed 01/16/23] Multivitamin [Multi-Vitamin Daily] 1 each PO DAILY 01/24/14 [History Confirmed 01/16/23] Testosterone Cypionate 1 ml IM UD 10/09/14 [History Confirmed 01/16/23] Duloxetine HCl [Cymbalta] 60 mg PO BID 04/23/15 [History Confirmed 01/16/23] Metformin HCl 500 mg [Glucophage 500 MG] 1,000 mg PO BIDWM 04/20/20 [History Confirmed 01/16/23] Atorvastatin Calcium [Lipitor] 10 mg PO HS 01/06/22 [History Confirmed 01/16/23] Morphine Sulfate Ir 15 mg [Msir 15 mg] 15 mg PO 0600,1200,1800,0000 02/07/22 [History Confirmed 01/16/23] Mineral Oil 30 ml PO TID 10/30/22 [History Confirmed 01/16/23] Esomeprazole Magnesium [Nexium 24Hr] 40 mg PO HS 12/25/22 [History Confirmed 01/16/23] Prednisone 20 mg [Deltasone 20 mg] 15 mg PO DAILY 12/25/22 [History Confirmed 01/16/23] Allergies/Adverse Reactions: Allergies Allergy/AdvReac Type Severity Reaction Status Date / Time pregabalin [From Lyrica] AdvReac Severe Hives Verified 01/16/23 18:08 azithromycin [From Zmax] AdvReac Mild Verified 01/16/23 18:08 - Past Medical History Past Medical History: Yes Neurological History: Other ENT History: No Pertinent History Cardiac History: Hypertension Respiratory History: Sleep Apnea Endocrine Medical History: Other Musculoskelatal History: No Pertinent History GI Medical History: GERD History: No Pertinent History Pyscho-Social History: Depression Male Reproductive Disorders: No Pertinent History Comment: Mollaret's, spleen removed - Past Surgical History Past Surgical History: Yes Neuro Surgical History: No Pertinent History Cardiac History: No Pertinent History Respiratory Surgery: No Pertinent History GI Surgical History: Appendectomy, Other Genitourinary Surgical Hx: No Pertinent History Musculskeletal Surgical Hx: No Pertinent History Male Surgical History: Vasectomy Other Surgical History: splenectomy, 2 nasal surgeries - Social History Smoking Status: Never smoker Exposure to second hand smoke: No Alcohol: None Drug Use: none Significant Family History: no pertinent family hx - Physical Exam Vital Signs: Vital Signs - 24 hr Temp Pulse Resp BP Pulse Ox 01/17/23 11:58 97.7 F 97 H 18 135/89 97 01/17/23 09:46 19 97 01/17/23 08:41 17 01/17/23 07:29 97.7 F 92 H 17 105/65 92 L 01/17/23 06:49 92 L 01/17/23 04:00 97.8 F 89 20 127/71 94 L 01/17/23 03:04 98 01/17/23 00:00 97.3 F 105 H 16 117/72 94 L 01/16/23 21:46 16 92 L 01/16/23 20:00 97.3 F 109 H 18 135/63 97 01/16/23 19:07 95 01/16/23 18:00 97.5 F 82 18 141/80 98 01/16/23 17:46 18 01/16/23 16:40 92 H 18 134/84 98 01/16/23 15:37 78 18 126/116 94 L Results - Labs Lab/Micro Results: Lab Results-Last 24 Hours 01/16/23 01/16/23 01/16/23 Range/Units 15:58 15:59 15:59 WBC 8.7 (4.0-10.5) x10^3/uL RBC 5.43 (4.1-5.6) x10^6/uL Hgb 15.9 (12.5-18.0) g/dL Hct 48.8 (42-50) % MCV 89.9 (78-100) fL MCH 29.3 (26-32) pg MCHC 32.6 (32-36) g/dL RDW 15.4 H (11.5-14.0) % Plt Count 364 (150-450) x10^3/uL MPV 9.6 (7.5-11.0) fL Gran % 60.6 (36.0-66.0) % Immature Gran % (Auto) 0.5 H (0.00-0.4) % Nucleat RBC Rel Count 0.0 (0.00-0.1) % Eos # (Auto) 0.39 (0-0.5) x10^3/uL Immature Gran # (Auto) 0.04 H (0.00-0.03) x10^3u/L Absolute Lymphs (auto) 2.15 (1.0-4.6) x10^3/uL Absolute Monos (auto) 0.77 (0.0-1.3) x10^3/uL Absolute Nucleated RBC 0.00 (0.00-0.01) x10^3u/L Lymphocytes % 24.8 (24.0-44.0) % Monocytes % 8.9 (0.0-12.0) % Eosinophils % 4.5 (0.00-5.0) % Basophils % 0.7 (0.0-0.4) % Absolute Granulocytes 5.25 (1.4-6.9) x10^3/uL Basophils # 0.06 (0-0.4) x10^3/uL ESR 22 H (0-15) mm/hr Sodium 138 (137-145) mmol/L Potassium 4.2 (3.5-5.1) mmol/L Chloride 98 (98-107) mmol/L Carbon Dioxide 33 H (22-30) mmol/L Anion Gap 11.0 (5-15) MEQ/L BUN 8 L (9-20) mg/dL Creatinine 0.81 (0.66-1.25) mg/dL Estimated GFR > 60.0 ML/MIN Glucose 116 H (74-106) mg/dL POC Glucometer (74 to 106) mg/dL Calcium 9.3 (8.4-10.2) mg/dL Magnesium 1.8 (1.6-2.3) mg/dL Total Bilirubin 0.50 (0.2-1.3) mg/dL AST 56 (17-59) U/L ALT 37 (0-50) U/L Alkaline Phosphatase 96 (38-126) U/L Serum Total Protein 7.6 (6.3-8.2) g/dL Albumin 4.4 (3.5-5.0) g/dL Influenza Type A Ag NEGATIVE (NEGATIVE) Influenza Type B Ag NEGATIVE (NEGATIVE) RSV (PCR) NEGATIVE (NEGATIVE) SARS-CoV-2 (PCR) NEGATIVE (NEGATIVE) 01/16/23 01/17/23 01/17/23 Range/Units 21:11 05:30 05:30 WBC 6.7 (4.0-10.5) x10^3/uL RBC 4.82 (4.1-5.6) x10^6/uL Hgb 13.7 (12.5-18.0) g/dL Hct 44.0 (42-50) % MCV 91.3 (78-100) fL MCH 28.4 (26-32) pg MCHC 31.1 L (32-36) g/dL RDW 15.1 H (11.5-14.0) % Plt Count 345 (150-450) x10^3/uL MPV 10.1 (7.5-11.0) fL Gran % 64.1 (36.0-66.0) % Immature Gran % (Auto) 0.6 H (0.00-0.4) % Nucleat RBC Rel Count 0.0 (0.00-0.1) % Eos # (Auto) 0.21 (0-0.5) x10^3/uL Immature Gran # (Auto) 0.04 H (0.00-0.03) x10^3u/L Absolute Lymphs (auto) 1.53 (1.0-4.6) x10^3/uL Absolute Monos (auto) 0.55 (0.0-1.3) x10^3/uL Absolute Nucleated RBC 0.00 (0.00-0.01) x10^3u/L Lymphocytes % 23.0 L (24.0-44.0) % Monocytes % 8.3 (0.0-12.0) % Eosinophils % 3.2 (0.00-5.0) % Basophils % 0.8 (0.0-0.4) % Absolute Granulocytes 4.28 (1.4-6.9) x10^3/uL Basophils # 0.05 (0-0.4) x10^3/uL ESR (0-15) mm/hr Sodium 135 L (137-145) mmol/L Potassium 4.2 (3.5-5.1) mmol/L Chloride 101 (98-107) mmol/L Carbon Dioxide 26 (22-30) mmol/L Anion Gap 13.0 (5-15) MEQ/L BUN 10 (9-20) mg/dL Creatinine 0.71 (0.66-1.25) mg/dL Estimated GFR > 60.0 ML/MIN Glucose 208 H (74-106) mg/dL POC Glucometer 220 H (74 to 106) mg/dL Calcium 8.4 (8.4-10.2) mg/dL Magnesium (1.6-2.3) mg/dL Total Bilirubin (0.2-1.3) mg/dL AST (17-59) U/L ALT (0-50) U/L Alkaline Phosphatase (38-126) U/L Serum Total Protein (6.3-8.2) g/dL Albumin (3.5-5.0) g/dL Influenza Type A Ag (NEGATIVE) Influenza Type B Ag (NEGATIVE) RSV (PCR) (NEGATIVE) SARS-CoV-2 (PCR) (NEGATIVE) 01/17/23 01/17/23 Range/Units 06:38 11:31 WBC (4.0-10.5) x10^3/uL RBC (4.1-5.6) x10^6/uL Hgb (12.5-18.0) g/dL Hct (42-50) % MCV (78-100) fL MCH (26-32) pg MCHC (32-36) g/dL RDW (11.5-14.0) % Plt Count (150-450) x10^3/uL MPV (7.5-11.0) fL Gran % (36.0-66.0) % Immature Gran % (Auto) (0.00-0.4) % Nucleat RBC Rel Count (0.00-0.1) % Eos # (Auto) (0-0.5) x10^3/uL Immature Gran # (Auto) (0.00-0.03) x10^3u/L Absolute Lymphs (auto) (1.0-4.6) x10^3/uL Absolute Monos (auto) (0.0-1.3) x10^3/uL Absolute Nucleated RBC (0.00-0.01) x10^3u/L Lymphocytes % (24.0-44.0) % Monocytes % (0.0-12.0) % Eosinophils % (0.00-5.0) % Basophils % (0.0-0.4) % Absolute Granulocytes (1.4-6.9) x10^3/uL Basophils # (0-0.4) x10^3/uL ESR (0-15) mm/hr Sodium (137-145) mmol/L Potassium (3.5-5.1) mmol/L Chloride (98-107) mmol/L Carbon Dioxide (22-30) mmol/L Anion Gap (5-15) MEQ/L BUN (9-20) mg/dL Creatinine (0.66-1.25) mg/dL Estimated GFR ML/MIN Glucose (74-106) mg/dL POC Glucometer 220 H 231 H (74 to 106) mg/dL Calcium (8.4-10.2) mg/dL Magnesium (1.6-2.3) mg/dL Total Bilirubin (0.2-1.3) mg/dL AST (17-59) U/L ALT (0-50) U/L Alkaline Phosphatase (38-126) U/L Serum Total Protein (6.3-8.2) g/dL Albumin (3.5-5.0) g/dL Influenza Type A Ag (NEGATIVE) Influenza Type B Ag (NEGATIVE) RSV (PCR) (NEGATIVE) SARS-CoV-2 (PCR) (NEGATIVE) Accuchecks Date 01/17/23 Date 01/17/23 Time 11:58 Time 07:29 - Radiology Impressions Radiology Exams & Impressions: Radiology Procedures Category Date Time Status MRI C-SPINE WITH CONTRAST [MRI] Stat Exams 01/19/23 17:23 Ordered MRI L-SPINE WITH CONTRAST [MRI] Stat Exams 01/19/23 17:23 Ordered MRI T-SPINE WITH CONTRAST [MRI] Stat Exams 01/19/23 17:23 Ordered
[2023-01-17] MEDS: Protonix 40MG Tablet PO SCH (21:40)
[2023-01-17] MEDS: Zocor 10MG PO SCH (21:40)
[2023-01-17] MEDS: Vasotec 10 MG PO SCH (21:40)
[2023-01-17] MEDS: BENADRYL 50 MG/ML IV PRN (23:24)
[2023-01-18] MEDS: HYDROMORPHONE 30 MG/30 ML-NS PCA IV PRN ×2 (01:52→18:09)
[2023-01-18] MEDS: Sodium Chloride 0.9% 1000 ML 1,000 ML IV SCH ×3 (01:58→14:47)
[2023-01-18] MEDS: solu-CORTEF 100MG IV SCH ×3 (04:01→20:09)
[2023-01-18] MEDS: ZOVIRAX IV SCH ×3 (04:01→20:09)
[2023-01-18] MEDS: SODIUM CHLORIDE 0.9% IV SCH ×3 (04:01→20:09)
[2023-01-18] MEDS: MSIR 15 MG PO SCH ×4 (06:15→23:16)
[2023-01-18] MEDS: Glucophage 500 MG PO SCH ×2 (08:20→17:06)
[2023-01-18] MEDS: ECOTRIN 81 MG PO SCH (08:20)
[2023-01-18] MEDS: THERAGRAN MULTIVITAMIN PO SCH (08:20)
[2023-01-18] MEDS: Cymbalta 30 MG Capsule PO SCH ×2 (08:20→21:36)
[2023-01-18] MEDS: PROTONIX 40 MG IV IV SCH (08:21)
[2023-01-18] MEDS: MINERAL OIL PO SCH ×3 (08:23→21:39)
--- NOTE | 2023-01-18 14:12 | PCM.NOTE ---
Date and Time: 01/18/23 1412 OBJECTIVE DATA Vital Signs: Vital Signs - 24 hr Temp Pulse Resp BP Pulse Ox 01/18/23 12:00 97.3 F 82 17 138/84 97 01/18/23 07:28 97.6 F 85 17 132/85 96 01/18/23 06:42 97 01/18/23 05:46 19 95 01/18/23 04:00 97.4 F 88 19 128/71 98 01/18/23 01:52 16 95 01/18/23 01:46 16 95 01/18/23 00:00 98.1 F 98 H 17 132/77 96 01/17/23 22:30 16 95 01/17/23 21:46 16 96 01/17/23 20:00 97.8 F 105 H 17 134/80 96 01/17/23 19:27 97 01/17/23 17:46 18 97 01/17/23 16:41 17 98 01/17/23 16:00 97.3 F 91 H 17 113/55 95 Pain Assessment - Last Documented Pain Intensity [Neck] 9 Pain Intensity 8 Pain Scale Used 0-10 Pain Scale Intake and Output: Intake & Output 01/16/23 01/17/23 01/18/23 01/19/23 11:59 11:59 11:59 11:59 Intake Total 3981 5408 240 Output Total 2518 2600 1650 Balance -1294 2808 -1410 Weight 111 kg Lab Results: Lab Results-Last 24 Hours 01/16/23 01/17/23 01/17/23 Range/Units 15:59 16:09 20:59 POC Glucometer 248 H 217 H (74 to 106) mg/dL C-Reactive Prot, Quant 5 (0-10) mg/L 01/18/23 01/18/23 Range/Units 07:11 11:32 POC Glucometer 155 H 197 H (74 to 106) mg/dL C-Reactive Prot, Quant (0-10) mg/L Radiology Exams: Radiology Procedures Category Date Time Status MRI C-SPINE WITH CONTRAST [MRI] Stat Exams 01/19/23 17:23 Ordered MRI L-SPINE WITH CONTRAST [MRI] Stat Exams 01/19/23 17:23 Ordered MRI T-SPINE WITH CONTRAST [MRI] Stat Exams 01/19/23 17:23 Ordered
[2023-01-18] MEDS: HUMALOG SQ PRN ×2 (17:07→21:36)
[2023-01-18] MEDS: Zocor 10MG PO SCH (21:36)
[2023-01-18] MEDS: Vasotec 10 MG PO SCH (21:36)
[2023-01-18] MEDS: Protonix 40MG Tablet PO SCH (21:36)
[2023-01-18] MEDS: BENADRYL 50 MG/ML IV PRN (23:16)
[2023-01-19] MEDS: ZOVIRAX IV SCH ×3 (02:50→20:40)
[2023-01-19] MEDS: Sodium Chloride 0.9% 1000 ML 1,000 ML IV SCH ×2 (02:50→15:45)
[2023-01-19] MEDS: SODIUM CHLORIDE 0.9% IV SCH ×3 (02:50→20:40)
[2023-01-19] MEDS: solu-CORTEF 100MG IV SCH ×3 (02:50→20:40)
[2023-01-19] MEDS: MSIR 15 MG PO SCH ×4 (05:09→23:51)
--- NOTE | 2023-01-19 08:17 | PCM.NOTE ---
Date and Time: 01/19/23814 Subjective Assessment: patient c/o numbness to abdomen and legs, has weakness in his legs chronically but seems slightly worse. he has had similar symptoms with flares in the remote past. his pain is stable Objective Exam General Appearance: no apparent distress, obese Neurologic Exam: alert, oriented x 3, motor deficits (symmetric weakness in hip flexors BLE, sensation intact and dtr 2+) Respiratory Exam: normal breath sounds, lungs clear, No respiratory distress Cardiovascular Exam: regular rate/rhythm, normal heart sounds Gastrointestinal/Abdomen Exam: soft, No tenderness, No mass OBJECTIVE DATA Vital Signs: Vital Signs - 24 hr Temp Pulse Resp BP Pulse Ox 01/19/23 07:28 97.5 F 73 17 154/89 99 01/19/23 05:00 16 97 01/19/23 04:00 16 97 01/19/23 03:45 97.8 F 57 L 16 132/65 98 01/19/23 02:09 16 95 01/19/23 01:00 16 95 01/19/23 00:00 97.8 F 79 16 135/78 93 L 01/18/23 22:09 16 96 01/18/23 21:00 16 94 L 01/18/23 20:00 18 95 01/18/23 19:54 97.7 F 88 18 162/88 98 01/18/23 19:33 94 L 01/18/23 16:00 97.5 F 86 17 139/68 96 01/18/23 12:00 97.3 F 82 17 138/84 97 Pain Assessment - Last Documented Pain Intensity [Neck] 9 Pain Intensity 8 Pain Scale Used 0-10 Pain Scale Intake and Output: Intake & Output 01/16/23 01/17/23 01/18/23 01/19/23 11:59 11:59 11:59 11:59 Intake Total 3981 5408 4376 Output Total 2717 2600 4600 Balance -1294 2808 -224 Weight 111 kg Lab Results: Lab Results-Last 24 Hours 01/16/23 01/18/23 01/18/23 Range/Units 15:59 11:32 16:07 POC Glucometer 197 H 263 H (74 to 106) mg/dL C-Reactive Prot, Quant 5 (0-10) mg/L 01/18/23 01/19/23 Range/Units 20:44 07:11 POC Glucometer 234 H 175 H (74 to 106) mg/dL C-Reactive Prot, Quant (0-10) mg/L Radiology Exams: Radiology Procedures Category Date Time Status CERVICAL SPINE WO CONTRAST [CT] Stat Exams 01/19/23 08:14 Ordered HEAD WITHOUT CONTRAST [CT] Stat Exams 01/19/23 08:13 Ordered MRI C-SPINE WITH CONTRAST [MRI] Stat Exams 01/19/23 17:23 Ordered MRI L-SPINE WITH CONTRAST [MRI] Stat Exams 01/19/23 17:23 Ordered MRI T-SPINE WITH CONTRAST [MRI] Stat Exams 01/19/23 17:23 Ordered THORACIC SPINE W/O CONTRAST [CT] Stat Exams 01/19/23 08:14 Ordered Assessment/Plan (1) Mollaret's syndrome (benign recurrent meningitis) Current Visit: No Status: Resolved Onset Date: ~11/01/18 Assessment & Plan: continue IV acyclovir, solu cortef and fluids. 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 Code(s): G03.2 - BENIGN RECURRENT MENINGITIS [MOLLARET] (2) Intractable pain Current Visit: Yes Status: Acute Code(s): R52 - PAIN, UNSPECIFIED (3) Aseptic meningitis Current Visit: No Status: Acute Code(s): G03.0 - NONPYOGENIC MENINGITIS
[2023-01-19] MEDS: PROTONIX 40 MG IV IV SCH (08:37)
[2023-01-19] MEDS: Glucophage 500 MG PO SCH ×2 (08:37→18:08)
[2023-01-19] MEDS: THERAGRAN MULTIVITAMIN PO SCH (08:37)
[2023-01-19] MEDS: Cymbalta 30 MG Capsule PO SCH ×2 (08:37→21:33)
[2023-01-19] MEDS: ECOTRIN 81 MG PO SCH (08:37)
[2023-01-19] MEDS: MINERAL OIL PO SCH ×3 (08:37→21:34)
--- NOTE | 2023-01-19 10:52 | XRAY ---
Indication: Headache. History Mollaret's syndrome. Multiple contiguous axial images obtained through the head without contrast. Comparison: November 01, 2018 Stable small ovoid hypodensity in the superior sagittal sinus dating back to May 03, 2009 again favored to be benign given stability over the years. No acute intracranial hemorrhage, abnormal extra-axial fluid collection, or mass effect. Fourth ventricle is midline without hydrocephalus. Naranjo-white matter differentiation preserved. Bony calvarium intact. Visualized paranasal sinuses and mastoid air cells are clear. Impression: Stable benign ovoid hypodensity superior sagittal sinus. No new/acute intracranial abnormalities.
--- NOTE | 2023-01-19 10:54 | XRAY ---
Indication: Headache and neck pain. History Mollaret's syndrome. Multiple contiguous axial images obtained through the cervical spine. Sagittal and coronal reformatted images obtained. Comparison: November 01, 2018 Axial images again negative for acute fracture, suspicious bony lesions, or spinal canal stenosis. Worsening mild C5-C6 degenerative endplate spurring. Stable minimal C6-T1 degenerative endplate spurring. Sagittal and coronal reformatted images again demonstrates lordotic straightening and C5-C6 disc space narrowing. No acute compression fracture, subluxation, or jumped facet. Normal appearing craniocervical junction. Visualized noncontrasted soft tissues unremarkable. Impression: Again lordotic straightening and C5-T1 degenerative changes. No new/acute abnormalities.
--- NOTE | 2023-01-19 11:04 | XRAY ---
Indication: Left weakness and numbness. History Mollaret's syndrome. Multiple contiguous axial images obtained through the thoracic spine. Sagittal and coronal reformatted images obtained. Comparison: None Axial images demonstrates mild multilevel bridging/nonbridging anterior endplate osteophytes. No acute fracture or suspicious bony lesions. Spinal canal epidural lead terminates T11-T12 level. No obvious large disc herniation or spinal canal stenosis. Visualized noncontrasted soft tissues demonstrates small left hilar calcified granulomas. Impression: 1. Mild multilevel anterior endplate osteophytes, epidural lead terminating T11-T12, and left hilar calcified granulomas. 2. Remaining CT thoracic spine without contrast exam is negative.
--- NOTE | 2023-01-19 11:10 | XRAY ---
Indication: Left weakness and numbness. History Mollaret's syndrome. Multiple contiguous axial images obtained through the lumbar spine. Sagittal and coronal reformatted images obtained. Comparison: None Axial images demonstrates minimal/mild multilevel endplate spurring, mild broad-based disc bulge L2-S1 levels, tiny L2-L3 degenerative vacuum disc phenomena, and mild/moderate bilateral L3-S1 degenerative facet hypertrophy. Degenerative disc disease and facet hypertrophy produces L3-L4 spinal canal stenosis. No acute fracture, suspicious bony lesions, or large disc herniation. Spinal canal epidural lead enters posterior to L2. SI joints are bilaterally symmetric. Sagittal and coronal reformatted images demonstrates normal lumbar alignment with L3-L5 disc space narrowing. No acute compression fracture or subluxation. Visualized noncontrasted soft tissues are unremarkable. Impression: 1. L2-S1 degenerative disc disease. Greatest extent at L3-L4 with or spinal canal stenosis. 2. Remaining CT lumbar spine without contrast exam is negative.
[2023-01-19] MEDS: HYDROMORPHONE 30 MG/30 ML-NS PCA IV PRN (11:55)
[2023-01-19] MEDS: Bactroban OINTMENT TP SCH (12:10)
[2023-01-19] MEDS: HUMALOG SQ PRN (18:09)
[2023-01-19] MEDS: Vasotec 10 MG PO SCH (21:33)
[2023-01-19] MEDS: Protonix 40MG Tablet PO SCH (21:33)
[2023-01-19] MEDS: Zocor 10MG PO SCH (21:34)
[2023-01-19] MEDS: BENADRYL 50 MG/ML IV PRN (23:51)
[2023-01-20] MEDS: Sodium Chloride 0.9% 1000 ML 1,000 ML IV SCH ×2 (02:21→15:48)
[2023-01-20] MEDS: HYDROMORPHONE 30 MG/30 ML-NS PCA IV PRN ×3 (03:55→18:30)
[2023-01-20] MEDS: ZOVIRAX IV SCH ×3 (04:00→21:47)
[2023-01-20] MEDS: SODIUM CHLORIDE 0.9% IV SCH ×3 (04:00→21:47)
[2023-01-20] MEDS: solu-CORTEF 100MG IV SCH ×3 (04:01→19:42)
[2023-01-20] MEDS: MSIR 15 MG PO SCH ×4 (07:25→23:18)
[2023-01-20] MEDS: Glucophage 500 MG PO SCH ×2 (07:43→18:25)
--- NOTE | 2023-01-20 08:54 | PCM.NOTE ---
Date and Time: 01/20/23 08 Subjective Assessment: no new problems or concerns overnight, still has significant pain above typical baseline. tolerating po Objective Exam General Appearance: no apparent distress, obese Neurologic Exam: alert, oriented x 3 Respiratory Exam: normal breath sounds, lungs clear, No respiratory distress Cardiovascular Exam: regular rate/rhythm, normal heart sounds Gastrointestinal/Abdomen Exam: soft, No tenderness, No mass Extremity Exam: normal inspection, normal range of motion OBJECTIVE DATA Vital Signs: Vital Signs - 24 hr Temp Pulse Resp BP Pulse Ox 01/20/23 07:55 16 94 L 01/20/23 07:25 94 L 01/20/23 07:17 98.1 F 78 16 116/82 96 01/20/23 04:00 97.1 F 71 18 130/88 99 01/20/23 03:55 16 97 01/19/23 23:55 16 98 01/19/23 22:58 97.1 F 112 H 18 135/84 94 L 01/19/23 22:09 16 95 01/19/23 20:34 96 01/19/23 20:00 16 95 01/19/23 19:55 18 96 01/19/23 19:04 97.1 F 78 18 142/78 96 01/19/23 19:00 18 96 01/19/23 16:00 97.8 F 84 17 125/58 96 01/19/23 11:55 16 01/19/23 11:30 97.8 F 84 17 125/58 96 01/19/23 09:54 97 Pain Assessment - Last Documented Pain Intensity [Neck] 9 Pain Intensity 8 Pain Scale Used 0-10 Pain Scale Intake and Output: Intake & Output 01/17/23 01/18/23 01/19/23 01/20/23 11:59 11:59 11:59 11:59 Intake Total 3981 4758 4856 4511 Output Total 8923 1350 5100 2500 Balance -8820 3088 -244 2010 Weight 111 kg Lab Results: Lab Results-Last 24 Hours 01/19/23 01/19/23 01/19/23 Range/Units 11:16 16:25 21:35 POC Glucometer 196 H 295 H 168 H (74 to 106) mg/dL 01/20/23 Range/Units 07:34 POC Glucometer 166 H (74 to 106) mg/dL Radiology Exams: Radiology Procedures Category Date Time Status CERVICAL SPINE WO CONTRAST [CT] Stat Exams 01/19/23 08:14 Completed HEAD WITHOUT CONTRAST [CT] Stat Exams 01/19/23 08:13 Completed LUMBAR SPINE W/O [CT] Stat Exams 01/19/23 08:17 Completed THORACIC SPINE W/O CONTRAST [CT] Stat Exams 01/19/23 08:14 Completed Assessment/Plan (1) Mollaret's syndrome (benign recurrent meningitis) Current Visit: No Status: Resolved Onset Date: ~11/01/18 Assessment & Plan: 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 nothing acute on imaging Code(s): G03.2 - BENIGN RECURRENT MENINGITIS [MOLLARET] (2) Intractable pain Current Visit: Yes Status: Acute Code(s): R52 - PAIN, UNSPECIFIED (3) Aseptic meningitis Current Visit: No Status: Acute Code(s): G03.0 - NONPYOGENIC MENINGITIS
[2023-01-20] MEDS: Cymbalta 30 MG Capsule PO SCH ×2 (09:01→21:48)
[2023-01-20] MEDS: ECOTRIN 81 MG PO SCH (09:01)
[2023-01-20] MEDS: THERAGRAN MULTIVITAMIN PO SCH (09:01)
[2023-01-20] MEDS: Bactroban OINTMENT TP SCH (09:01)
[2023-01-20] MEDS: PROTONIX 40 MG IV IV SCH (09:01)
[2023-01-20] MEDS: MINERAL OIL PO SCH ×3 (09:26→21:47)
[2023-01-20] MEDS: HUMALOG SQ PRN ×2 (12:15→18:44)
[2023-01-20] MEDS: Vasotec 10 MG PO SCH (21:48)
[2023-01-20] MEDS: Zocor 10MG PO SCH (21:49)
[2023-01-20] MEDS: Protonix 40MG Tablet PO SCH (21:49)
[2023-01-20] MEDS: BENADRYL 50 MG/ML IV PRN (23:18)
[2023-01-21] MEDS: solu-CORTEF 100MG IV SCH ×3 (03:22→21:45)
[2023-01-21] MEDS: Sodium Chloride 0.9% 1000 ML 1,000 ML IV SCH ×2 (03:24→15:10)
[2023-01-21 05:11] LABS: Absolute Neutrophil Ct (ANC) 7.71 x10^3/uL (1.4-6.9); BASOPHIL % 0.8 % (0.0-0.4); Eosinophil (Absolute #) 0.13 x10^3/uL (0-0.5); Hematocrit 40.5 % (42-50); Hemoglobin 13.1 g/dL (12.5-18.0); IMMATURE GRAN # 0.09 x10^3u/L (0.00-0.03); IMMATURE GRAN % 0.7 % (0.00-0.4); Lymphocyte (Absolute #) 3.66 x10^3/uL (1.0-4.6); Lymphocytes % 28.9 % (24.0-44.0); Mean Corpuscular Hemoglobin 28.8 pg (26-32); Mean Corpuscular Hgb Concent. 32.3 g/dL (32-36); Mean Platelet Volume 10.3 fL (7.5-11.0); Monocyte (Absolute #) 0.97 x10^3/uL (0.0-1.3); Monocytes % 7.7 % (0.0-12.0); Neutrophil % 60.9 % (36.0-66.0); Platelet Count 412 x10^3/uL (150-450); Red Blood Count 4.55 x10^6/uL (4.1-5.6); Red Cell Distribution Width 15.3 % (11.5-14.0); White Blood Count 12.7 x10^3/uL (4.0-10.5)
[2023-01-21 05:36] LABS: ALBUMIN 3.5 g/dL (3.5-5.0); ALKALINE PHOSPHATASE 74 U/L (38-126); ANION GAP 9.7 MEQ/L (5-15); BLOOD UREA NITROGEN 9 mg/dL (9-20); CHLORIDE 103 mmol/L (98-107); Carbon Dioxide 28 mmol/L (22-30); Creatinine 1 0.58 mg/dL (0.66-1.25); EST GLOMERULAR FILTRATION RATE > 60.0 ML/MIN; Glucose 149 mg/dL (74-106); Potassium 3.8 mmol/L (3.5-5.1); SGOT/AST 23 U/L (17-59); SGPT/ALT 25 U/L (0-50); SODIUM 137 mmol/L (137-145); Total Protein 6.1 g/dL (6.3-8.2)
[2023-01-21] MEDS: ZOVIRAX IV SCH ×3 (05:40→21:39)
[2023-01-21] MEDS: MSIR 15 MG PO SCH ×3 (05:40→17:54)
[2023-01-21] MEDS: SODIUM CHLORIDE 0.9% IV SCH ×3 (05:40→21:39)
--- NOTE | 2023-01-21 09:27 | PCM.NOTE ---
Date and Time: 01/21/23925 Subjective Assessment: patient notes some improvement in his pain and condition, he still feels more pain than his usual baseline but is definitely improving. Objective Exam General Appearance: no apparent distress, obese Neurologic Exam: alert, oriented x 3 Respiratory Exam: normal breath sounds, lungs clear, No respiratory distress Cardiovascular Exam: regular rate/rhythm, normal heart sounds Gastrointestinal/Abdomen Exam: soft, No tenderness, No mass OBJECTIVE DATA Vital Signs: Vital Signs - 24 hr Temp Pulse Resp BP Pulse Ox 01/21/23 07:53 98 01/21/23 07:33 97.1 F 71 16 155/74 98 01/21/23 03:38 97.9 F 64 19 147/82 99 01/21/23 00:00 98.1 F 75 18 131/80 95 01/20/23 22:30 97 H 01/20/23 22:00 16 97 01/20/23 20:33 98.1 F 54 L 18 165/81 97 01/20/23 20:03 97 01/20/23 20:00 98.1 F 72 160/77 97 01/20/23 18:30 16 97 01/20/23 18:00 16 97 01/20/23 16:00 98.1 F 72 16 160/77 97 01/20/23 14:00 16 01/20/23 11:50 97.9 F 81 16 138/61 97 01/20/23 09:28 18 96 Pain Assessment - Last Documented Pain Intensity [Neck] 9 Pain Intensity 16 Pain Scale Used 0-10 Pain Scale Intake and Output: Intake & Output 01/18/23 01/19/23 01/20/23 01/21/23 11:59 11:59 11:59 11:59 Intake Total 5408 4856 5291 4876 Output Total 2600 5100 2500 5900 Balance 2808 -244 2791 -1024 Weight 111 kg Lab Results: Lab Results-Last 24 Hours 01/20/23 01/20/23 01/20/23 Range/Units 12:00 15:52 21:05 WBC (4.0-10.5) x10^3/uL RBC (4.1-5.6) x10^6/uL Hgb (12.5-18.0) g/dL Hct (42-50) % MCV (78-100) fL MCH (26-32) pg MCHC (32-36) g/dL RDW (11.5-14.0) % Plt Count (150-450) x10^3/uL MPV (7.5-11.0) fL Gran % (36.0-66.0) % Immature Gran % (Auto) (0.00-0.4) % Nucleat RBC Rel Count (0.00-0.1) % Eos # (Auto) (0-0.5) x10^3/uL Immature Gran # (Auto) (0.00-0.03) x10^3u/L Absolute Lymphs (auto) (1.0-4.6) x10^3/uL Absolute Monos (auto) (0.0-1.3) x10^3/uL Absolute Nucleated RBC (0.00-0.01) x10^3u/L Lymphocytes % (24.0-44.0) % Monocytes % (0.0-12.0) % Eosinophils % (0.00-5.0) % Basophils % (0.0-0.4) % Absolute Granulocytes (1.4-6.9) x10^3/uL Basophils # (0-0.4) x10^3/uL Sodium (137-145) mmol/L Potassium (3.5-5.1) mmol/L Chloride (98-107) mmol/L Carbon Dioxide (22-30) mmol/L Anion Gap (5-15) MEQ/L BUN (9-20) mg/dL Creatinine (0.66-1.25) mg/dL Estimated GFR ML/MIN Glucose (74-106) mg/dL POC Glucometer 246 H 290 H 104 (74 to 106) mg/dL Calcium (8.4-10.2) mg/dL Total Bilirubin (0.2-1.3) mg/dL AST (17-59) U/L ALT (0-50) U/L Alkaline Phosphatase (38-126) U/L Serum Total Protein (6.3-8.2) g/dL Albumin (3.5-5.0) g/dL 01/21/23 01/21/23 01/21/23 Range/Units 05:13 05:13 06:59 WBC 12.7 H (4.0-10.5) x10^3/uL RBC 4.55 (4.1-5.6) x10^6/uL Hgb 13.1 (12.5-18.0) g/dL Hct 40.5 L (42-50) % MCV 89.0 (78-100) fL MCH 28.8 (26-32) pg MCHC 32.3 (32-36) g/dL RDW 15.3 H (11.5-14.0) % Plt Count 412 (150-450) x10^3/uL MPV 10.3 (7.5-11.0) fL Gran % 60.9 (36.0-66.0) % Immature Gran % (Auto) 0.7 H (0.00-0.4) % Nucleat RBC Rel Count 0.0 (0.00-0.1) % Eos # (Auto) 0.13 (0-0.5) x10^3/uL Immature Gran # (Auto) 0.09 H (0.00-0.03) x10^3u/L Absolute Lymphs (auto) 3.66 (1.0-4.6) x10^3/uL Absolute Monos (auto) 0.97 (0.0-1.3) x10^3/uL Absolute Nucleated RBC 0.00 (0.00-0.01) x10^3u/L Lymphocytes % 28.9 (24.0-44.0) % Monocytes % 7.7 (0.0-12.0) % Eosinophils % 1.0 (0.00-5.0) % Basophils % 0.8 (0.0-0.4) % Absolute Granulocytes 7.71 H (1.4-6.9) x10^3/uL Basophils # 0.10 (0-0.4) x10^3/uL Sodium 137 (137-145) mmol/L Potassium 3.8 (3.5-5.1) mmol/L Chloride 103 (98-107) mmol/L Carbon Dioxide 28 (22-30) mmol/L Anion Gap 9.7 (5-15) MEQ/L BUN 9 (9-20) mg/dL Creatinine 0.58 L (0.66-1.25) mg/dL Estimated GFR > 60.0 ML/MIN Glucose 149 H (74-106) mg/dL POC Glucometer 149 H (74 to 106) mg/dL Calcium 8.0 L (8.4-10.2) mg/dL Total Bilirubin 0.30 (0.2-1.3) mg/dL AST 23 (17-59) U/L ALT 25 (0-50) U/L Alkaline Phosphatase 74 (38-126) U/L Serum Total Protein 6.1 L (6.3-8.2) g/dL Albumin 3.5 (3.5-5.0) g/dL Multi-Disciplinary Progress Notes: Multi-Disciplinary Progress Notes 01/20/23 11:26 Case Management Note by Kasie Garcia NO CHANGE IN DC PLANS AT THIS TIME- PATIENT TO RETURN HOME TO HIS PLF AT TIME OF DC Initialized on 01/20/23 11:26 - END OF NOTE Assessment/Plan (1) Mollaret's syndrome (benign recurrent meningitis) Current Visit: No Status: Resolved Onset Date: ~11/01/18 Assessment & Plan: continue current treatment with IV acyclovir, solu cortef and fluids. plan for discharge tomorrow Code(s): G03.2 - BENIGN RECURRENT MENINGITIS [MOLLARET] (2) Intractable pain Current Visit: Yes Status: Acute Code(s): R52 - PAIN, UNSPECIFIED (3) Aseptic meningitis Current Visit: No Status: Acute Code(s): G03.0 - NONPYOGENIC MENINGITIS
[2023-01-21] MEDS: Cymbalta 30 MG Capsule PO SCH ×2 (09:43→21:38)
[2023-01-21] MEDS: PROTONIX 40 MG IV IV SCH (09:43)
[2023-01-21] MEDS: THERAGRAN MULTIVITAMIN PO SCH (09:44)
[2023-01-21] MEDS: ECOTRIN 81 MG PO SCH (09:44)
[2023-01-21] MEDS: Glucophage 500 MG PO SCH ×2 (09:44→16:57)
[2023-01-21] MEDS: Bactroban OINTMENT TP SCH (09:55)
[2023-01-21] MEDS: MINERAL OIL PO SCH ×3 (09:57→21:38)
[2023-01-21] MEDS: HYDROMORPHONE 30 MG/30 ML-NS PCA IV PRN (11:14)
[2023-01-21] MEDS: HUMALOG SQ PRN ×2 (16:57→21:45)
[2023-01-21] MEDS: Vasotec 10 MG PO SCH (21:38)
[2023-01-21] MEDS: Zocor 10MG PO SCH (21:38)
[2023-01-21] MEDS: Protonix 40MG Tablet PO SCH (21:38)
[2023-01-22] MEDS: BENADRYL 50 MG/ML IV PRN
[2023-01-22] MEDS: HYDROMORPHONE 30 MG/30 ML-NS PCA IV PRN (04:00)
[2023-01-22] MEDS: solu-CORTEF 100MG IV SCH ×2 (04:00→10:26)
[2023-01-22] MEDS: SODIUM CHLORIDE 0.9% IV SCH (05:24)
[2023-01-22] MEDS: ZOVIRAX IV SCH (05:24)
[2023-01-22] MEDS: MSIR 15 MG PO SCH ×2 (05:24)
[2023-01-22] MEDS: Glucophage 500 MG PO SCH (07:56)
--- NOTE | 2023-01-22 08:09 | PCM.DS ---
Discharge Summary Date of Admission: 01/17/23 13:15 Admitting Physician: ANN ALEXIS Primary Care Provider: ANN ALEXIS Allergies Allergies pregabalin [From Lyrica] Adverse Reaction (Severe, Verified 01/16/23 18:08) Hives SOB hives azithromycin [From Zmax] Adverse Reaction (Mild, Verified 01/16/23 18:08) vomiting Hospital Summary - Hospital Course Hospital Course: patient admitted with typical flare of Mollaret's, pain is under good control and he is tolerating po intake, back to baseline and ready for discharge today. - Vitals & Intake/Output Vital Signs: Vital Signs Temperature 97.1 F 01/22/23 07:11 Pulse Rate 72 01/22/23 07:11 Respiratory Rate 18 01/22/23 07:11 Blood Pressure 159/83 01/22/23 07:11 O2 Sat by Pulse Oximetry 96 01/22/23 07:11 Intake & Output: Intake & Output 01/19/23 01/20/23 01/21/23 01/22/23 11:59 11:59 11:59 11:59 Intake Total 4856 5291 4876 2100 Output Total 5100 2500 7000 4825 Balance -244 4226 -0075 -9024 Weight 111 kg - Lab Result Diagrams: 01/21/23 05:13 01/21/23 05:13 Lab Results-Last 24 Hrs: Lab Results-Last 24 Hours 01/21/23 01/21/23 01/21/23 Range/Units 11:20 16:45 20:29 POC Glucometer 183 H 254 H 252 H (74 to 106) mg/dL 01/22/23 Range/Units 06:57 POC Glucometer 158 H (74 to 106) mg/dL Micro Results-Entire Visit: Accuchecks Date 01/21/23 Date 01/21/23 Time 21:00 Discharge Exam General Appearance: no apparent distress, obese Neurologic Exam: alert, oriented x 3 Respiratory Exam: normal breath sounds, lungs clear, No respiratory distress Cardiovascular Exam: regular rate/rhythm, normal heart sounds Gastrointestinal/Abdomen Exam: soft, No tenderness, No mass Final Diagnosis/Problem List - Final Discharge Diagnosis/Problem (1) Mollaret's syndrome (benign recurrent meningitis) Current Visit: No Status: Resolved Onset Date: ~11/01/18 Assessment & Plan: home on po acyclovir and prednisone Code(s): G03.2 - BENIGN RECURRENT MENINGITIS [MOLLARET] (2) Intractable pain Current Visit: Yes Status: Acute Code(s): R52 - PAIN, UNSPECIFIED (3) Aseptic meningitis Current Visit: No Status: Acute Code(s): G03.0 - NONPYOGENIC MENINGITIS - Discharge Disposition: Home, Self-Care Condition: Stable Prescriptions: New Acyclovir 400 mg PO TID #21 tablet Prednisone 20 mg [Deltasone 20 mg] 20 mg PO UD #18 tablet Continue Enalapril Maleate 10 mg [Vasotec 10 MG] 20 mg PO HS Multivitamin [Multi-Vitamin Daily] 1 each PO DAILY Aspirin 81 mg PO DAILY Testosterone Cypionate 1 ml IM UD Duloxetine HCl [Cymbalta] 60 mg PO BID Metformin HCl 500 mg [Glucophage 500 MG] 1,000 mg PO BIDWM Atorvastatin Calcium [Lipitor] 10 mg PO HS Morphine Sulfate Ir 15 mg [Msir 15 mg] 15 mg PO 0600,1200,1800,0000 Mineral Oil 30 ml PO TID Prednisone 20 mg [Deltasone 20 mg] 15 mg PO DAILY Esomeprazole Magnesium [Nexium 24Hr] 40 mg PO HS Follow up with: ANN ALEXIS MD [Primary Care Provider] -
[2023-01-22] MEDS: THERAGRAN MULTIVITAMIN PO SCH (10:08)
[2023-01-22] MEDS: Cymbalta 30 MG Capsule PO SCH (10:08)
[2023-01-22] MEDS: ECOTRIN 81 MG PO SCH (10:08)
[2023-01-22] MEDS: MINERAL OIL PO SCH (10:08)
[2023-01-22] MEDS: Bactroban OINTMENT TP SCH (10:10)
[2023-01-22] MEDS: PROTONIX 40 MG IV IV SCH (10:10)
[2023-01-22] MEDS ORDERED: MSIR 15 MG PO ONE (10:20)
[2023-01-22] MEDS: HUMALOG SQ PRN (12:17)
[2023-01-22 12:29] VITALS: BP 161/83; PULSE 75; O2SAT 95
== END 2023-01-22 12:50 | disposition home or self-care (01) | DRG 76 ==
LOC: ED 11:54 → MED SURG 17:00 → OBSVTOIN 01-17 13:15
PROVIDERS: ADMIT Family Medicine; ATTEND Family Medicine
DX: G03.2 Benign recurrent meningitis [Mollaret] (principal); R52 Pain, unspecified; G03.0 Nonpyogenic meningitis; I10 Essential (primary) hypertension; Z79.899 Other long term (current) drug therapy; Z20.828 Contact with and (suspected) exposure to other viral communicable diseases
CPT/HCPCS: 0241U; 36415; 70450; 72125; 72128; 72131; 80048; 80053; 82947; 83735; 85025; 85652; 86140; 93268; 94762; 96360; 99283; G0378; J0133; J1170; J1200; J1720; J1817; A9270-GY

== ENCOUNTER 2023-03-02 18:55 | Inpatient (IN) | payer MEDICARE, BC ==
[2023-03-02] MEDS ORDERED: solu-CORTEF 100MG IV ONE (19:02)
[2023-03-02] MEDS ORDERED: Hydromorphone 1 mg/ml Injection IV ONE (19:02)
[2023-03-02] MEDS ORDERED: Zofran 4 MG/2 ML VIAL IV ONE (19:02)
[2023-03-02] MEDS ORDERED: Zovirax INJ*** 500 MG in D5w 100ML Mini Bag 100 ML 100 ML IV ONE (19:03)
[2023-03-02] MEDS ORDERED: Sodium Chloride 0.9% 1000 ML 1,000 ML IV SCH (19:15)
--- NOTE | 2023-03-02 19:17 | ERPHSYRPT ---
- History of Present Illness Time Seen by Provider: 03/02/23 19:11 Source: patient Exam Limitations: no limitations Physician History: This is a 53-year-old white male patient of Dr. Alexis who is well-known to our emergency department. Approximately every 3 to 5 weeks patient is back into our emergency department complaining of head neck pain. 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 On 01/19/2023, during that hospitalization here in the hospital, CT scan of cervical spine was negative, CT scan of the thoracic spine was negative and a CT scan of the lumbar spine was negative. Patient states this is typical symptoms. Patient states his symptoms began yesterday and have worsened. Patient has a history of diabetes, hypertension, hyperlipidemia and gastroesophageal reflux disease. Timing/Duration: yesterday Quality: aching Head Pain Location: global Severity of Pain-Max: moderate Severity of Pain-Current: moderate Recent Head Trauma: chronic headaches (With associated neck pain) Associated Symptoms: neck pain, other (Headache) Previous symptoms: same symptoms as today Allergies/Adverse Reactions: pregabalin [From Lyrica] Adverse Reaction (Severe, Verified 01/16/23 18:08) Hives SOB hives azithromycin [From Zmax] Adverse Reaction (Mild, Verified 01/16/23 18:08) vomiting Home Medications: Aspirin 81 mg PO DAILY 01/24/14 [History] Enalapril Maleate 10 mg [Vasotec 10 MG] 20 mg PO HS 01/24/14 [History] Multivitamin [Multi-Vitamin Daily] 1 each PO DAILY 01/24/14 [History] Testosterone Cypionate 1 ml IM UD 10/09/14 [History] Duloxetine HCl [Cymbalta] 60 mg PO BID 04/23/15 [History] Metformin HCl 500 mg [Glucophage 500 MG] 1,000 mg PO BIDWM 04/20/20 [History] Atorvastatin Calcium [Lipitor] 10 mg PO HS 01/06/22 [History] Morphine Sulfate Ir 15 mg [Msir 15 mg] 15 mg PO 0600,1200,1800,0000 02/07/22 [History] Mineral Oil 30 ml PO TID 10/30/22 [History] Esomeprazole Magnesium [Nexium 24Hr] 40 mg PO HS 12/25/22 [History] Prednisone 20 mg [Deltasone 20 mg] 15 mg PO DAILY 12/25/22 [History] Hx Tetanus, Diphtheria Vaccination/Date Given: Yes (february 2016) Hx Influenza Vaccination/Date Given: No (Doesn't get one) Hx Pneumococcal Vaccination/Date Given: Yes Travel Risk - International Travel Have you traveled outside of the country in past 3 weeks: No - Coronavirus Screening Are you exhibiting any of the following symptoms?: No Close contact with a COVID-19 positive Pt in past 14-21 Days: No - Vaccine Status Have you recieved a Covid-19 vaccination: Yes 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 - Vaccination Dates Dates if Unknown: ? - Review of Systems Constitutional: No Symptoms Eyes: No Symptoms Ears, Nose, & Throat: No Symptoms Respiratory: No Symptoms Cardiac: No Symptoms Abdominal/Gastrointestinal: No Symptoms Genitourinary Symptoms: No Symptoms Musculoskeletal: No Symptoms Skin: No Symptoms Neurological: Headache, Other (Neck pain) Psychological: No Symptoms Endocrine: No Symptoms Hematologic/Lymphatic: No Symptoms Immunological/Allergic: No Symptoms All Other Systems: Reviewed and Negative - Past Medical History Pertinent Past Medical History: Yes Neurological History: Other ENT History: No Pertinent History Cardiac History: Hypertension Respiratory History: Sleep Apnea Endocrine Medical History: Other Musculoskeletal History: No Pertinent History GI Medical History: GERD History: No Pertinent History Psycho-Social History: Depression Male Reproductive Disorders: No Pertinent History Other Medical History: Mollaret's, spleen removed - Past Surgical History Past Surgical History: Yes Neuro Surgical History: No Pertinent History Cardiac: No Pertinent History Respiratory: No Pertinent History Gastrointestinal: Appendectomy, Other Genitourinary: No Pertinent History Musculoskeletal: No Pertinent History Male Surgical History: Vasectomy Other Surgical History: splenectomy, 2 nasal surgeries - Social History Smoking Status: Never smoker Exposure to second hand smoke: No Alcohol Use: None Drug Use: none Patient Lives Alone: No Significant Family History: no pertinent family hx - Physical Exam General Appearance: mild distress, alert (To moderate), anxiety Eye Exam: PERRL/EOMI, eyes nml inspection Ears, Nose, Throat Exam: normal ENT inspection, moist mucous membranes Neck Exam: normal inspection, non-tender, supple, full range of motion Respiratory Exam: normal breath sounds, lungs clear, airway intact, No chest tenderness, No respiratory distress Cardiovascular Exam: regular rate/rhythm, normal heart sounds, normal peripheral pulses Gastrointestinal/Abdominal Exam: soft, normal bowel sounds, No tenderness Back Exam: normal inspection, normal range of motion, No CVA tenderness, No vertebral tenderness Extremity Exam: normal inspection, normal range of motion, pelvis stable Mental Status Exam: alert, oriented x 3, 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 Exam: normal hearing, normal speech, PERRL Coordination/Gait Exam: normal gait, normal cerebellar function Motor/Sensory Exam: no motor deficit, no sensory deficit, no pronator drift Skin Exam: normal color, warm, dry Lymphatic Exam: No adenopathy SpO2 Interpretation: normal O2 Delivery: Room Air - Course Nursing assessment & vital signs reviewed: Yes Ordered Tests: Active Orders 24 hr Category Date Time Status IV Insertion STAT Care 03/02/23 19:02 Active CBC W DIFF Stat Lab 03/02/23 19:02 Ordered CMP Stat Lab 03/02/23 19:02 Ordered Medication Summary Generic Name Dose Route Start Last Admin Trade Name Freq PRN Reason Stop Dose Admin Sodium Chloride 1,000 mls @ 100 mls/hr 03/02/23 19:15 Sodium Chloride 0.9% 1000 Ml IV 04/01/23 19:14 .Q10H GLENNA Acyclovir Sodium 500 mg/ 100 mls @ 100 mls/hr 03/02/23 19:03 Dextrose IV 03/02/23 20:02 STAT ONE Discontinued Medications Generic Name Dose Route Start Last Admin Trade Name Freq PRN Reason Stop Dose Admin Hydrocortisone Sodium Succinate 100 mg 03/02/23 19:02 Hydrocortisone Sod Succinate 100 Mg/Vial Vial IV 03/02/23 19:03 STAT ONE Hydromorphone HCl 2 mg 03/02/23 19:02 Hydromorphone 1 Mg/1ml Inj IV 03/02/23 19:03 STAT ONE Ondansetron HCl 4 mg 03/02/23 19:02 Ondansetron Hcl 4 Mg/2 Ml Vial IV 03/02/23 19:03 STAT ONE - Progress Progress: re-examined Air Movement: good Progress Note: 03/02/23 19:14 This patient's medical issue is 1 of moderate complexity. His symptoms are recurrent.. The level of complexity in the work-up performed is based on review of the patient's past medical history, review the patient's medication list, review of the patient's drug allergy list, history of present illness and physical findings on examination. Patient will have an intravenous line placed, infusion of normal saline solution, infusion of Dilaudid pain medicine, infusion of Zofran antiemetic, infusion of hydrocortisone and infusion of acyclovir intravenously. Patient will be placed in observation. I discussed the above with Dr. Alfonso who is covering as hospitalist today. We have discussed and agree with the plan as stated above. Blood Culture(s) Obtained: No Antibiotics given: No Discussed with : Praveen Counseled pt/family regarding: lab results, diagnosis, need for follow-up Medical Desision Making - External Record(s) Reviewed Records reviewed as a part of evaluation & management: Inpatient - Discussion of managment Reviewed:: Test results, Need for additional workup Agreed on:: Treatment plan, decision to admit - Diagnostic Testing Diagnostic test were ordered, analyzed, and reviewed by me: Yes - Risk of complications The pt has a high risk of morbidity or mortality based on: Decision regarding hospitilization or escalation of hosp level of care - Departure Departure Disposition: Observation Clinical Impression: Mollaret's syndrome (benign recurrent meningitis) Condition: Stable Critical Care Time: No Referrals: ANN ALEXIS MD [Primary Care Provider] - Follow up/PCP as directed
[2023-03-02] MEDS ORDERED: Zovirax INJ IV ONE (19:20)
[2023-03-02] MEDS ORDERED: Zofran 4 MG/2 ML VIAL ONE (19:20)
[2023-03-02] MEDS ORDERED: solu-CORTEF 100MG ONE (19:20)
[2023-03-02] MEDS ORDERED: D5w 100ML Mini Bag 100 ML 100 ML IV ONE (19:21)
[2023-03-02] MEDS ORDERED: Hydromorphone 1 mg/ml Injection ONE ×2 (19:21→19:48)
[2023-03-02] MEDS ORDERED: Sterile H2O 10 ml IJ ONE (19:31)
[2023-03-02 19:34] LABS: Absolute Neutrophil Ct (ANC) 7.34 x10^3/uL (1.4-6.9); BASOPHIL % 0.6 % (0.0-0.4); Basophil (Absolute #) 0.07 x10^3/uL (0-0.4); Eosinophil % 0.6 % (0.00-5.0); Eosinophil (Absolute #) 0.07 x10^3/uL (0-0.5); Hematocrit 48.1 % (42-50); Hemoglobin 15.5 g/dL (12.5-18.0); IMMATURE GRAN # 0.05 x10^3u/L (0.00-0.03); IMMATURE GRAN % 0.5 % (0.00-0.4); Lymphocyte (Absolute #) 2.67 x10^3/uL (1.0-4.6); Lymphocytes % 24.5 % (24.0-44.0); Mean Cell Volume 88.6 fL (78-100); Mean Corpuscular Hemoglobin 28.5 pg (26-32); Mean Corpuscular Hgb Concent. 32.2 g/dL (32-36); Mean Platelet Volume 9.4 fL (7.5-11.0); Monocytes % 6.4 % (0.0-12.0); Neutrophil % 67.4 % (36.0-66.0); Platelet Count 378 x10^3/uL (150-450); Red Blood Count 5.43 x10^6/uL (4.1-5.6); Red Cell Distribution Width 14.4 % (11.5-14.0); White Blood Count 10.9 x10^3/uL (4.0-10.5)
[2023-03-02] MEDS ORDERED: Sodium Chloride 0.9% 1000 ML 1,000 ML IV STA (19:41)
[2023-03-02 19:50] LABS: INFLUENZA A NEGATIVE (NEGATIVE); INFLUENZA B NEGATIVE (NEGATIVE); RESPIRATORY SYNCTIAL VIRUS NEGATIVE (NEGATIVE); SARS-CoV-2 Xpert Express NEGATIVE (NEGATIVE)
[2023-03-02 19:57] LABS: ALBUMIN 4.4 g/dL (3.5-5.0); ALKALINE PHOSPHATASE 103 U/L (38-126); BLOOD UREA NITROGEN 9 mg/dL (9-20); CHLORIDE 100 mmol/L (98-107); Calcium 8.8 mg/dL (8.4-10.2); Carbon Dioxide 23 mmol/L (22-30); Creatinine 1 0.62 mg/dL (0.66-1.25); EST GLOMERULAR FILTRATION RATE > 60.0 ML/MIN; Glucose 182 mg/dL (74-106); Potassium 4.3 mmol/L (3.5-5.1); SGOT/AST 31 U/L (17-59); SGPT/ALT 28 U/L (0-50); SODIUM 137 mmol/L (137-145); Total Protein 7.6 g/dL (6.3-8.2)
[2023-03-02] MEDS ORDERED: Zofran 4 MG/2 ML VIAL IV PRN (20:50)
[2023-03-02] MEDS ORDERED: Hydromorphone 1 mg/ml Injection IV PRN (20:50)
[2023-03-02] MEDS ORDERED: TYLENOL 325 MG PO PRN (20:50)
[2023-03-02] MEDS: HYDROMORPHONE 30 MG/30 ML-NS PCA IV PRN (21:25)
[2023-03-02] MEDS: Sodium Chloride 0.9% 1000 ML 1,000 ML IV SCH (21:25)
--- NOTE | 2023-03-02 21:27 | PCM.HP ---
History of Present Illness - Chief Complaint Chief Complaint: c/o headache for 1-2 days History of Present Illness: is a 53 year old male.complaining of head neck pain. 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 On 01/19/2023, during that hospitalization here in the hospital, CT scan of cervical spine was negative, CT scan of the thoracic spine was negative and a CT scan of the lumbar spine was negative. Patient states this is typical symptoms. Patient states his symptoms began yesterday and have worsened. Patient has a history of diabetes, hypertension, hyperlipidemia and gastroesophageal reflux disease. Timing/Duration: yesterday Quality: aching Head Pain Location: global Severity of Pain-Max: moderate Severity of Pain-Current: moderate Recent Head Trauma: chronic headaches (With associated neck pain) Associated Symptoms: neck pain, other (Headache) Previous symptoms: same symptoms as today - Review of Systems Constitutional: No Fever, No Chills Eyes: No Symptoms Ears, Nose, & Throat: No Symptoms Respiratory: No Cough, No Short Of Breath Cardiac: No Chest Pain, No Edema, No Syncope Abdominal/Gastrointestinal: No Abdominal Pain, No Nausea, No Vomiting, No Diarrhea Genitourinary Symptoms: No Dysuria Musculoskeletal: No Back Pain, No Neck Pain Skin: No Rash Neurological: Headache, No Dizziness, No Focal Weakness, No Sensory Changes Psychological: No Symptoms Endocrine: No Symptoms Hematologic/Lymphatic: No Symptoms Immunological/Allergic: No Symptoms Medications & Allergies Home Medications: Home Medication List Aspirin 81 mg PO DAILY 01/24/14 [History Confirmed 03/02/23] Enalapril Maleate 10 mg [Vasotec 10 MG] 20 mg PO HS 01/24/14 [History Confirmed 03/02/23] Multivitamin [Multi-Vitamin Daily] 1 each PO DAILY 01/24/14 [History Confirmed 03/02/23] Testosterone Cypionate 1 ml IM UD 10/09/14 [History Confirmed 03/02/23] Duloxetine HCl [Cymbalta] 60 mg PO BID 04/23/15 [History Confirmed 03/02/23] Metformin HCl 500 mg [Glucophage 500 MG] 1,000 mg PO BIDWM 04/20/20 [History Confirmed 03/02/23] Atorvastatin Calcium [Lipitor] 10 mg PO HS 01/06/22 [History Confirmed 03/02/23] Morphine Sulfate Ir 15 mg [Msir 15 mg] 15 mg PO 0600,1200,1800,0000 02/07/22 [History Confirmed 03/02/23] Mineral Oil 30 ml PO TID 10/30/22 [History Confirmed 03/02/23] Esomeprazole Magnesium [Nexium 24Hr] 40 mg PO HS 12/25/22 [History Confirmed 03/02/23] Prednisone 20 mg [Deltasone 20 mg] 15 mg PO DAILY 12/25/22 [History Confirmed 03/02/23] Allergies/Adverse Reactions: Allergies Allergy/AdvReac Type Severity Reaction Status Date / Time pregabalin [From Lyrica] AdvReac Severe Hives Verified 01/16/23 18:08 azithromycin [From Zmax] AdvReac Mild Verified 01/16/23 18:08 - Past Medical History Past Medical History: Yes Neurological History: Other ENT History: No Pertinent History Cardiac History: Hypertension Respiratory History: Sleep Apnea Endocrine Medical History: Other Musculoskelatal History: No Pertinent History GI Medical History: GERD History: No Pertinent History Pyscho-Social History: Depression Male Reproductive Disorders: No Pertinent History Comment: Mollaret's, spleen removed - Past Surgical History Past Surgical History: Yes Neuro Surgical History: No Pertinent History Cardiac History: No Pertinent History Respiratory Surgery: No Pertinent History GI Surgical History: Appendectomy, Other Genitourinary Surgical Hx: No Pertinent History Musculskeletal Surgical Hx: No Pertinent History Male Surgical History: Vasectomy Other Surgical History: splenectomy, 2 nasal surgeries - Social History Smoking Status: Never smoker Exposure to second hand smoke: No Alcohol: None Drug Use: none Significant Family History: no pertinent family hx - Physical Exam Vital Signs: Vital Signs - 24 hr Temp Pulse Resp BP BP Pulse Ox 03/02/23 20:00 121 H 18 123/90 95 03/02/23 19:05 97.3 F 120 H 16 138/94 97 General Appearance: no apparent distress, alert Neurologic Exam: alert, oriented x 3, cooperative, normal mood/affect, nml cerebellar function, nml station & gait, sensation nml, No motor deficits Eye Exam: PERRL/EOMI, eyes nml inspection Ears, Nose, Throat Exam: normal ENT inspection, TMs normal, pharynx normal, moist mucous membranes Neck Exam: normal inspection, non-tender, supple, full range of motion Respiratory Exam: normal breath sounds, lungs clear, No respiratory distress Cardiovascular Exam: regular rate/rhythm, normal heart sounds, normal peripheral pulses Gastrointestinal/Abdomen Exam: soft, normal bowel sounds, No tenderness, No mass Back Exam: normal inspection, normal range of motion, No CVA tenderness, No vertebral tenderness Extremity Exam: normal inspection, normal range of motion, pelvis stable Skin Exam: normal color, warm, dry, No rash Lymphatic Exam: No adenopathy Results - Labs Lab/Micro Results: Lab Results-Last 24 Hours 03/02/23 03/02/23 03/02/23 Range/Units 19:05 19:30 19:30 WBC 10.9 H (4.0-10.5) x10^3/uL RBC 5.43 (4.1-5.6) x10^6/uL Hgb 15.5 (12.5-18.0) g/dL Hct 48.1 (42-50) % MCV 88.6 (78-100) fL MCH 28.5 (26-32) pg MCHC 32.2 (32-36) g/dL RDW 14.4 H (11.5-14.0) % Plt Count 378 (150-450) x10^3/uL MPV 9.4 (7.5-11.0) fL Gran % 67.4 H (36.0-66.0) % Immature Gran % (Auto) 0.5 H (0.00-0.4) % Nucleat RBC Rel Count 0.0 (0.00-0.1) % Eos # (Auto) 0.07 (0-0.5) x10^3/uL Immature Gran # (Auto) 0.05 H (0.00-0.03) x10^3u/L Absolute Lymphs (auto) 2.67 (1.0-4.6) x10^3/uL Absolute Monos (auto) 0.70 (0.0-1.3) x10^3/uL Absolute Nucleated RBC 0.00 (0.00-0.01) x10^3u/L Lymphocytes % 24.5 (24.0-44.0) % Monocytes % 6.4 (0.0-12.0) % Eosinophils % 0.6 (0.00-5.0) % Basophils % 0.6 (0.0-0.4) % Absolute Granulocytes 7.34 H (1.4-6.9) x10^3/uL Basophils # 0.07 (0-0.4) x10^3/uL Sodium 137 (137-145) mmol/L Potassium 4.3 (3.5-5.1) mmol/L Chloride 100 (98-107) mmol/L Carbon Dioxide 23 (22-30) mmol/L Anion Gap 18.0 H (5-15) MEQ/L BUN 9 (9-20) mg/dL Creatinine 0.62 L (0.66-1.25) mg/dL Estimated GFR > 60.0 ML/MIN Glucose 182 H (74-106) mg/dL Calcium 8.8 (8.4-10.2) mg/dL Total Bilirubin 0.40 (0.2-1.3) mg/dL AST 31 (17-59) U/L ALT 28 (0-50) U/L Alkaline Phosphatase 103 (38-126) U/L Serum Total Protein 7.6 (6.3-8.2) g/dL Albumin 4.4 (3.5-5.0) g/dL Influenza Type A Ag NEGATIVE (NEGATIVE) Influenza Type B Ag NEGATIVE (NEGATIVE) RSV (PCR) NEGATIVE (NEGATIVE) SARS-CoV-2 (PCR) NEGATIVE (NEGATIVE) Assessment/Plan (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 Assessment & Plan: Chief Complaint Diagnosis Mollaret's syndrome Allergies Allergy/AdvReac Type Severity Reaction Status Date / Time pregabalin [From Lyrica] AdvReac Severe Hives Verified 01/16/23 18:08 azithromycin [From Zmax] AdvReac Mild Verified 01/16/23 18:08 Vital Signs (Last 24 hours) Temp Pulse Resp BP BP Pulse Ox 03/02/23 20:00 121 H 18 123/90 95 03/02/23 19:05 97.3 F 120 H 16 138/94 97 Current Medications Generic Name Dose Route Start Last Admin Trade Name Freq PRN Reason Stop Dose Admin Acetaminophen 650 mg 03/02/23 20:50 Acetaminophen 325 Mg Tablet PO 04/01/23 20:49 Q4H PRN PRN PAIN, FEVER, HEADACHE Hydrocortisone Sodium Succinate 100 mg 03/02/23 20:50 Hydrocortisone Sod Succinate 100 Mg/Vial Vial IV 04/01/23 20:49 Q8H GLENNA Hydromorphone HCl 1 mg 03/02/23 20:50 Hydromorphone 1 Mg/1ml Inj IV 03/07/23 20:49 Q4H PRN PRN PAIN Hydromorphone/Sodium Chloride 30 mg 03/02/23 21:09 Hydromorphone/Nacl/Pf 30 Mg/30 Ml Programs Manager.Syring IV 04/01/23 21:08 UD PRN PAIN Sodium Chloride 1,000 mls @ 50 mls/hr 03/02/23 20:50 Sodium Chloride 0.9% 1000 Ml IV 04/01/23 20:49 .Q20H GLENNA Acyclovir Sodium 500 mg/ 100 mls @ 100 mls/hr 03/02/23 20:50 Sodium Chloride IV 04/01/23 20:49 Q8H GLENNA Insulin Human Regular 0 unit 03/02/23 20:50 Insulin Regular, Human 1 Unit SQ 04/01/23 20:49 UD PRN HYPERGLYCEMIA Ondansetron HCl 4 mg 03/02/23 20:50 Ondansetron Hcl 4 Mg/2 Ml Vial IV 04/01/23 20:49 Q6H PRN PRN NAUSEA/VOMITING Discontinued Medications Generic Name Dose Route Start Last Admin Trade Name Freq PRN Reason Stop Dose Admin Acyclovir Sodium Confirm 03/02/23 19:20 Acyclovir Sodium 500 Mg/Vial Vial Administered 03/02/23 19:21 Dose 500 mg IV .STK-MED ONE Hydrocortisone Sodium Succinate 100 mg 03/02/23 19:02 03/02/23 19:47 Hydrocortisone Sod Succinate 100 Mg/Vial Vial IV 03/02/23 19:03 100 mg STAT ONE Administration Hydrocortisone Sodium Succinate Confirm 03/02/23 19:20 Hydrocortisone Sod Succinate 100 Mg/Vial Vial Administered 03/02/23 19:21 Dose 100 mg .ROUTE .STK-MED ONE Hydromorphone HCl 2 mg 03/02/23 19:02 03/02/23 19:47 Hydromorphone 1 Mg/1ml Inj IV 03/02/23 19:03 2 mg STAT ONE Administration Hydromorphone HCl Confirm 03/02/23 19:21 Hydromorphone 1 Mg/1ml Inj Administered 03/02/23 19:22 Dose 1 mg .ROUTE .STK-MED ONE Hydromorphone HCl Confirm 03/02/23 19:48 Hydromorphone 1 Mg/1ml Inj Administered 03/02/23 19:49 Dose 1 mg .ROUTE .STK-MED ONE Sodium Chloride 1,000 mls @ 100 mls/hr 03/02/23 19:15 03/02/23 20:25 Sodium Chloride 0.9% 1000 Ml IV 04/01/23 19:14 999 mls/hr .Q10H GLENNA Infusion Acyclovir Sodium 500 mg/ 100 mls @ 100 mls/hr 03/02/23 19:03 03/02/23 19:46 Dextrose IV 03/02/23 20:02 100 mls/hr STAT ONE Administration Dextrose Confirm 03/02/23 19:21 D5w 100ml Mini Bag 100 Ml Administered 03/02/23 19:22 Dose 100 mls @ ud IV .STK-MED ONE Sodium Chloride 1,000 mls @ 999 mls/hr 03/02/23 19:41 03/02/23 20:31 Sodium Chloride 0.9% 1000 Ml IV 03/02/23 20:41 Not Given .Q1H1M STA Sodium Chloride 1,000 mls @ 100 mls/hr 03/03/23 05:41 Sodium Chloride 0.9% 1000 Ml IV 04/02/23 05:40 .Q10H GLENNA Ondansetron HCl 4 mg 03/02/23 19:02 03/02/23 19:49 Ondansetron Hcl 4 Mg/2 Ml Vial IV 03/02/23 19:03 4 mg STAT ONE Administration Ondansetron HCl Confirm 03/02/23 19:20 Ondansetron Hcl 4 Mg/2 Ml Vial Administered 03/02/23 19:21 Dose 4 mg .ROUTE .STK-MED ONE Sterile Water Confirm 03/02/23 19:31 Water For Injection,Sterile 10 Ml Vial Administered 03/02/23 19:32 Dose 10 ml IJ .STK-MED ONE Intake & Output (Last 24 hours) 02/28/23 03/01/23 03/02/23 03/03/23 11:59 11:59 11:59 11:59 Weight 106.821 kg Laboratory Results (Last 24 hours) 03/02/23 03/02/23 03/02/23 19:30 19:30 19:05 WBC 10.9 H RBC 5.43 Hgb 15.5 Hct 48.1 MCV 88.6 MCH 28.5 MCHC 32.2 RDW 14.4 H Plt Count 378 MPV 9.4 Gran % 67.4 H Immature Gran % (Auto) 0.5 H Nucleat RBC Rel Count 0.0 Eos # (Auto) 0.07 Immature Gran # (Auto) 0.05 H Absolute Lymphs (auto) 2.67 Absolute Monos (auto) 0.70 Absolute Nucleated RBC 0.00 Lymphocytes % 24.5 Monocytes % 6.4 Eosinophils % 0.6 Basophils % 0.6 Absolute Granulocytes 7.34 H Basophils # 0.07 Sodium 137 Potassium 4.3 Chloride 100 Carbon Dioxide 23 Anion Gap 18.0 H BUN 9 Creatinine 0.62 L Estimated GFR > 60.0 Glucose 182 H Calcium 8.8 Total Bilirubin 0.40 AST 31 ALT 28 Alkaline Phosphatase 103 Serum Total Protein 7.6 Albumin 4.4 Influenza Type A Ag NEGATIVE Influenza Type B Ag NEGATIVE RSV (PCR) NEGATIVE SARS-CoV-2 (PCR) NEGATIVE Orders (Last 24 hours) Category Date Time Status Code Status Order ROUTINE Care 03/02/23 20:50 Active Elevate HOB TOLERATED Care 03/02/23 20:50 Active IV Insertion STAT Care 03/02/23 19:[address] in Observation ROUTINE Care 03/02/23 20:50 Active Consistent Carbohydrate Diet 2000 Calorie Diet 03/03/23 Breakfast Active CBC W DIFF AM.LAB Lab 03/03/23 04:00 Ordered CBC W DIFF Stat Lab 03/02/23 19:30 Completed CMP AM.LAB Lab 03/03/23 04:00 Ordered CMP Stat Lab 03/02/23 19:30 Completed COVID/FLU/RSV Panel Stat Lab 03/02/23 19:05 Completed Acetaminophen 325 mg [Tylenol 325 mg] Med 03/02/23 20:50 Ordered 650 mg PO Q4H PRN PRN Acyclovir Sodium Inj [Zovirax INJ] Med 03/02/23 19:20 Discontinued 500 mg IV .STK-MED ONE Acyclovir Sodium Inj [Zovirax INJ] 500 mg Med 03/02/23 19:03 Discontinued D5w 100 ml [D5w 100ML Mini Bag 100 ML] 100 ml IV STAT Acyclovir Sodium Inj [Zovirax INJ] 500 mg Med 03/02/23 20:50 Ordered NaCl 0.9% 100 ml Mini-Bag Plus [Sodium Chloride 100ML MINI-BAG PLUS] 100 ml IV Q8H D5w 100 ml [D5w 100ML Mini Bag 100 ML] 100 ml Med 03/02/23 19:21 Discontinued IV UD Hydrocortisone Sod Succ 100 mg [solu-CORTEF 100MG] Med 03/02/23 19:20 Discontinued 100 mg .ROUTE .STK-MED ONE Hydrocortisone Sod Succ 100 mg [solu-CORTEF 100MG] Med 03/02/23 20:50 Ordered 100 mg IV Q8H Hydrocortisone Sod Succ 100 mg [solu-CORTEF 100MG] Med 03/02/23 19:02 Discontinued 100 mg IV STAT ONE Hydromorphone 1 mg/1Ml Inj [Hydromorphone 1 mg/ml Med 03/02/23 19:21 Discontinued Injection] 1 mg .ROUTE .STK-MED ONE Hydromorphone 1 mg/1Ml Inj [Hydromorphone 1 mg/ml Med 03/02/23 19:48 Discontinued Injection] 1 mg .ROUTE .STK-MED ONE Hydromorphone 1 mg/1Ml Inj [Hydromorphone 1 mg/ml Med 03/02/23 20:50 Ordered Injection] 1 mg IV Q4H PRN PRN Hydromorphone 1 mg/1Ml Inj [Hydromorphone 1 mg/ml Med 03/02/23 19:02 Discontinued Injection] 2 mg IV STAT ONE Hydromorphone HCl/0.9% NaCl/Pf [Hydromorphone 30 mg/30 Med 03/02/23 21:09 Ordered ml-Ns [place] [employer]] 30 mg IV UD PRN Insulin Regular, Human [Humulin R] Med 03/02/23 20:50 Ordered See Dose Instructions SQ UD PRN NaCl 0.9% 1000 ml [Sodium Chloride 0.9% 1000 ML] 1,000 Med 03/02/23 19:15 Discontinued ml IV 100 mls/hr NaCl 0.9% 1000 ml [Sodium Chloride 0.9% 1000 ML] 000 Med 03/03/23 05:41 Discontinued ml IV 100 mls/hr NaCl 0.9% 1000 ml [Sodium Chloride 0.9% 1000 ML] 1,000 Med 03/02/23 20:50 Ordered ml IV 50 mls/hr NaCl 0.9% 1000 ml [Sodium Chloride 0.9% 1000 ML] 000 Med 03/02/23 19:41 Discontinued ml IV 999 mls/hr Ondansetron HCl 4 mg/2 ml [Zofran 4 MG/2 ML VIAL] Med 03/02/23 19:20 Discontinued 4 mg .ROUTE .STK-MED ONE Ondansetron HCl 4 mg/2 ml [Zofran 4 MG/2 ML VIAL] Med 03/02/23 20:50 Ordered 4 mg IV Q6H PRN PRN Ondansetron HCl 4 mg/2 ml [Zofran 4 MG/2 ML VIAL] Med 03/02/23 19:02 Discontinued 4 mg IV STAT ONE Water For Injection,Sterile [Sterile H2O 10 ml] Med 03/02/23 19:31 Discontinued 10 ml IJ .STK-MED ONE Pulse Oximetry ROUTINE RT 03/02/23 20:50 Active Transfer Order Routine Transfer 03/02/23 Completed Code(s): G03.2 - BENIGN RECURRENT MENINGITIS [MOLLARET]
[2023-03-02] MEDS: Zocor 10MG PO SCH (23:23)
[2023-03-02] MEDS: Vasotec 10 MG PO SCH (23:24)
[2023-03-02] MEDS: Cymbalta 30 MG Capsule PO SCH (23:24)
[2023-03-02] MEDS: Protonix 40MG Tablet PO SCH (23:24)
[2023-03-03] MEDS: ZOVIRAX IV SCH ×4 (00:01→21:08)
[2023-03-03] MEDS: SODIUM CHLORIDE MINI IV SCH ×4 (00:01→21:08)
[2023-03-03] MEDS ORDERED: BENADRYL 50 MG/ML IV PRN (00:42)
[2023-03-03] MEDS ORDERED: Zovirax INJ IV ONE (04:07)
[2023-03-03] MEDS ORDERED: Sodium Chloride 0.9% 100 ML ONE (04:09)
[2023-03-03] MEDS: solu-CORTEF 100MG IV SCH ×4 (04:22→21:07)
[2023-03-03 05:03] LABS: Absolute Neutrophil Ct (ANC) 7.14 x10^3/uL (1.4-6.9); BASOPHIL % 0.4 % (0.0-0.4); Basophil (Absolute #) 0.05 x10^3/uL (0-0.4); Eosinophil % 0.6 % (0.00-5.0); Eosinophil (Absolute #) 0.07 x10^3/uL (0-0.5); Hemoglobin 14.1 g/dL (12.5-18.0); IMMATURE GRAN # 0.06 x10^3u/L (0.00-0.03); IMMATURE GRAN % 0.5 % (0.00-0.4); Lymphocyte (Absolute #) 3.79 x10^3/uL (1.0-4.6); Lymphocytes % 31.7 % (24.0-44.0); Mean Cell Volume 90.5 fL (78-100); Mean Platelet Volume 9.8 fL (7.5-11.0); Monocyte (Absolute #) 0.84 x10^3/uL (0.0-1.3); Neutrophil % 59.8 % (36.0-66.0); Platelet Count 337 x10^3/uL (150-450); Red Blood Count 4.86 x10^6/uL (4.1-5.6); Red Cell Distribution Width 14.6 % (11.5-14.0)
[2023-03-03 05:16] LABS: ALBUMIN 3.8 g/dL (3.5-5.0); ALKALINE PHOSPHATASE 94 U/L (38-126); ANION GAP 14.3 MEQ/L (5-15); BLOOD UREA NITROGEN 10 mg/dL (9-20); CHLORIDE 101 mmol/L (98-107); Calcium 8.5 mg/dL (8.4-10.2); Carbon Dioxide 25 mmol/L (22-30); Creatinine 1 0.73 mg/dL (0.66-1.25); EST GLOMERULAR FILTRATION RATE > 60.0 ML/MIN; Glucose 207 mg/dL (74-106); Potassium 4.3 mmol/L (3.5-5.1); SGOT/AST 26 U/L (17-59); SGPT/ALT 23 U/L (0-50); SODIUM 136 mmol/L (137-145); Total Protein 6.7 g/dL (6.3-8.2)
[2023-03-03] MEDS ORDERED: Sodium Chloride 0.9% 1000 ML 1,000 ML IV SCH (05:41)
[2023-03-03] MEDS: Glucophage 500 MG PO SCH ×2 (09:02→17:09)
[2023-03-03] MEDS: Cymbalta 30 MG Capsule PO SCH ×2 (09:02→21:06)
[2023-03-03] MEDS: ECOTRIN 81 MG PO SCH (09:02)
[2023-03-03] MEDS: THERAGRAN MULTIVITAMIN PO SCH (09:03)
[2023-03-03] MEDS: MINERAL OIL PO SCH ×3 (09:04→21:07)
[2023-03-03] MEDS: HUMULIN R SQ PRN ×4 (09:56→21:07)
[2023-03-03] MEDS: HYDROMORPHONE 30 MG/30 ML-NS PCA IV PRN (10:33)
[2023-03-03] MEDS: MSIR 15 MG PO SCH ×3 (11:49→22:59)
[2023-03-03] MEDS: Sodium Chloride 0.9% 1000 ML 1,000 ML IV SCH (18:40)
[2023-03-03] MEDS: Zocor 10MG PO SCH (21:06)
[2023-03-03] MEDS: Vasotec 10 MG PO SCH (21:06)
[2023-03-03] MEDS: Protonix 40MG Tablet PO SCH (21:07)
[2023-03-03] MEDS: BENADRYL 50 MG/ML IV PRN (22:58)
[2023-03-04] MEDS: HYDROMORPHONE 30 MG/30 ML-NS PCA IV PRN ×2 (01:42→16:57)
[2023-03-04] MEDS: MSIR 15 MG PO SCH ×4 (06:04→23:20)
[2023-03-04] MEDS: solu-CORTEF 100MG IV SCH ×3 (06:04→21:57)
--- NOTE | 2023-03-04 06:12 | PCM.NOTE ---
Date and Time: 03/04/23605 Subjective Assessment: Late entry for 03/03/23, 0900: Pt started having increased neck pain 2d ago, PARK, back pain, worse with mvmt. No relief with his usual oral meds. He waited to come in because he had no one to watch his dog. Yesterday the pain worsened. No fever, +N, no vomiting. Was unable to eat yesterday, but maicol po fine here. - Review of Systems Abdominal/Gastrointestinal: Diarrhea (yesterday) Musculoskeletal: Back Pain, Neck Pain Neurological: Headache Psychological: Depression, No Suicidal Ideations, No Homicidal Ideations All Other Systems: Reviewed and Negative Objective Exam General Appearance: no apparent distress, alert, obese Neurologic Exam: oriented x 3, cooperative, other (CN III-XII nl) Skin Exam: normal color, warm, dry, No rash Eye Exam: eyes nml inspection Ears, Nose, Throat Exam: moist mucous membranes Neck Exam: normal inspection, other (posterior neck/trapezius muscles with some ttp) Respiratory Exam: normal breath sounds, lungs clear, No crackles/rales, No rhonchi, No wheezing Cardiovascular Exam: regular rate/rhythm, normal heart sounds, No murmur Gastrointestinal/Abdomen Exam: soft, normal bowel sounds, distention (as usual), No tenderness, No mass, No guarding Extremity Exam: normal inspection, No pedal edema, No swelling Back Exam: normal inspection, No rash OBJECTIVE DATA Vital Signs: Vital Signs - 24 hr Temp Pulse Resp BP BP Pulse Ox 03/04/23 04:00 97.6 F 91 H 18 138/90 98 03/04/23 01:42 16 98 03/04/23 00:00 97.6 F 75 19 139/87 97 03/03/23 22:00 16 03/03/23 19:52 98.5 F 107 H 18 144/75 132/88 94 L 03/03/23 19:40 95 03/03/23 19:16 18 98 03/03/23 16:00 97.1 F 92 H 18 144/75 98 03/03/23 14:00 16 94 L 03/03/23 11:45 97.1 F 94 H 18 157/62 94 L 03/03/23 10:33 16 95 03/03/23 10:00 16 95 03/03/23 07:19 97.0 F 95 H 18 131/69 94 L Pain Assessment - Last Documented Pain Intensity [Lower 9 Posterior Medial Neck] Pain Intensity 8 Pain Scale Used 0-10 Pain Scale Intake and Output: Intake & Output 03/01/23 03/02/23 03/03/23 03/04/23 11:59 11:59 11:59 11:59 Intake Total 960 3409 Output Total 1350 1850 Balance -390 1559 Weight 107.7 kg Lab Results: Lab Results-Last 24 Hours 03/03/23 03/03/23 03/03/23 Range/Units 04:00 06:49 11:40 POC Glucometer 153 H 233 H (74 to 106) mg/dL Hemoglobin A1c 8.29 H (4.5-6.0) % 03/03/23 03/03/23 Range/Units 16:28 20:26 POC Glucometer 181 H 211 H (74 to 106) mg/dL Hemoglobin A1c (4.5-6.0) % Assessment/Plan (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 Assessment & Plan: 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 I anticipate he will be in the hospital for several days before he is ready to discharge to home. Code(s): G03.2 - BENIGN RECURRENT MENINGITIS [MOLLARET] (2) Diabetes mellitus Current Visit: No Status: Chronic Qualifiers: Code(s): E11.9 - TYPE 2 DIABETES MELLITUS WITHOUT COMPLICATIONS (3) Hypertension Current Visit: No Status: Chronic Onset Date: ~11/01/18 Code(s): I10 - ESSENTIAL (PRIMARY) HYPERTENSION (4) Hyponatremia Current Visit: No Status: Chronic Assessment & Plan: mild, 136 Code(s): E87.1 - HYPO-OSMOLALITY AND HYPONATREMIA
[2023-03-04] MEDS: ZOVIRAX IV SCH ×3 (06:53→21:56)
[2023-03-04] MEDS: SODIUM CHLORIDE MINI IV SCH ×3 (06:53→21:56)
--- NOTE | 2023-03-04 08:04 | PCM.NOTE ---
Date and Time: 03/04/23802 Subjective Assessment: patient notes some improvement in headache and neck pain, typical flare of aseptic meningitis, continues to respond to traditional treatment. Objective Exam General Appearance: obese Neurologic Exam: alert, oriented x 3, cooperative Respiratory Exam: normal breath sounds, lungs clear, No respiratory distress Cardiovascular Exam: regular rate/rhythm, normal heart sounds Gastrointestinal/Abdomen Exam: soft, No tenderness, No mass Extremity Exam: normal inspection, normal range of motion OBJECTIVE DATA Vital Signs: Vital Signs - 24 hr Temp Pulse Resp BP BP Pulse Ox 03/04/23 07:44 97 03/04/23 06:58 97.2 F 84 16 119/80 98 03/04/23 04:00 97.6 F 91 H 18 138/90 98 03/04/23 01:42 16 98 03/04/23 00:00 97.6 F 75 19 139/87 97 03/03/23 22:00 16 03/03/23 19:52 98.5 F 107 H 18 144/75 132/88 94 L 03/03/23 19:40 95 03/03/23 19:16 18 98 03/03/23 16:00 97.1 F 92 H 18 144/75 98 03/03/23 14:00 16 94 L 03/03/23 11:45 97.1 F 94 H 18 157/62 94 L 03/03/23 10:33 16 95 03/03/23 10:00 16 95 Pain Assessment - Last Documented Pain Intensity [Lower 9 Posterior Medial Neck] Pain Intensity 8 Pain Scale Used 0-10 Pain Scale Intake and Output: Intake & Output 03/01/23 03/02/23 03/03/23 03/04/23 11:59 11:59 11:59 11:59 Intake Total 960 3409 Output Total 1350 2500 Balance -390 909 Weight 107.7 kg Lab Results: Lab Results-Last 24 Hours 03/03/23 03/03/23 03/03/23 Range/Units 04:00 11:40 16:28 POC Glucometer 233 H 181 H (74 to 106) mg/dL Hemoglobin A1c 8.29 H (4.5-6.0) % 03/03/23 03/04/23 Range/Units 20:26 06:33 POC Glucometer 211 H 136 H (74 to 106) mg/dL Hemoglobin A1c (4.5-6.0) % Assessment/Plan (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 Assessment & Plan: continue IV acyclovir, steroids and IV fluids with PATROL SERGEANT. Code(s): G03.2 - BENIGN RECURRENT MENINGITIS [MOLLARET] (2) Chronic pain syndrome Current Visit: No Status: Chronic Code(s): G89.4 - CHRONIC PAIN SYNDROME (3) Diabetes mellitus Current Visit: No Status: Chronic Qualifiers: Code(s): E11.9 - TYPE 2 DIABETES MELLITUS WITHOUT COMPLICATIONS
[2023-03-04] MEDS: Cymbalta 30 MG Capsule PO SCH ×2 (08:34→21:57)
[2023-03-04] MEDS: Glucophage 500 MG PO SCH ×2 (08:35→17:04)
[2023-03-04] MEDS: THERAGRAN MULTIVITAMIN PO SCH (08:35)
[2023-03-04] MEDS: MINERAL OIL PO SCH ×3 (08:35→21:57)
[2023-03-04] MEDS: ECOTRIN 81 MG PO SCH (08:35)
[2023-03-04] MEDS: HUMULIN R SQ PRN ×2 (12:16→23:45)
[2023-03-04] MEDS: Sodium Chloride 0.9% 1000 ML 1,000 ML IV SCH (16:57)
[2023-03-04] MEDS: Protonix 40MG Tablet PO SCH (21:57)
[2023-03-04] MEDS: Vasotec 10 MG PO SCH (21:57)
[2023-03-04] MEDS: Zocor 10MG PO SCH (21:57)
[2023-03-04] MEDS: BENADRYL 50 MG/ML IV PRN (23:19)
[2023-03-05] MEDS: solu-CORTEF 100MG IV SCH ×3 (05:38→22:05)
[2023-03-05] MEDS: ZOVIRAX IV SCH ×3 (05:38→22:05)
[2023-03-05] MEDS: MSIR 15 MG PO SCH ×4 (05:38→23:17)
[2023-03-05] MEDS: SODIUM CHLORIDE MINI IV SCH ×3 (05:38→22:05)
[2023-03-05] MEDS: HYDROMORPHONE 30 MG/30 ML-NS PCA IV PRN (07:56)
[2023-03-05] MEDS: ECOTRIN 81 MG PO SCH (08:07)
[2023-03-05] MEDS: MINERAL OIL PO SCH ×3 (08:07→22:04)
[2023-03-05] MEDS: THERAGRAN MULTIVITAMIN PO SCH (08:07)
[2023-03-05] MEDS: Glucophage 500 MG PO SCH ×2 (08:07→17:06)
[2023-03-05] MEDS: Cymbalta 30 MG Capsule PO SCH ×2 (08:07→22:04)
[2023-03-05] MEDS: HUMULIN R SQ PRN ×3 (12:33→22:05)
[2023-03-05] MEDS: Sodium Chloride 0.9% 1000 ML 1,000 ML IV SCH (15:21)
[2023-03-05] MEDS: Vasotec 10 MG PO SCH (22:04)
[2023-03-05] MEDS: Zocor 10MG PO SCH (22:05)
[2023-03-05] MEDS: Protonix 40MG Tablet PO SCH (22:05)
[2023-03-05] MEDS: BENADRYL 50 MG/ML IV PRN (23:17)
[2023-03-06] MEDS: HYDROMORPHONE 30 MG/30 ML-NS PCA IV PRN (01:20)
[2023-03-06] MEDS: MSIR 15 MG PO SCH ×2 (05:14→11:39)
[2023-03-06] MEDS: solu-CORTEF 100MG IV SCH (05:15)
[2023-03-06] MEDS: SODIUM CHLORIDE MINI IV SCH (05:15)
[2023-03-06] MEDS: ZOVIRAX IV SCH (05:15)
[2023-03-06] MEDS: Sodium Chloride 0.9% 1000 ML 1,000 ML IV SCH (05:53)
[2023-03-06] MEDS: Glucophage 500 MG PO SCH (07:21)
[2023-03-06] MEDS: HUMULIN R SQ PRN ×2 (07:21→11:48)
--- NOTE | 2023-03-06 08:03 | PCM.DS ---
Discharge Summary Date of Admission: 03/03/23 09:00 Admitting Physician: ANN ALEXIS Primary Care Provider: ANN ALEXIS Allergies Allergies pregabalin [From Lyrica] Adverse Reaction (Severe, Verified 01/16/23 18:08) Hives SOB hives azithromycin [From Zmax] Adverse Reaction (Mild, Verified 01/16/23 18:08) vomiting Hospital Summary - Hospital Course Hospital Course: patient admitted with typical flare of Mollaret's syndrome. he was treated with IV acyclovir, steroids and fluids. he has improved and appears to be back to his baseline, he has chronic pain treated by Dr Greer. - Vitals & Intake/Output Vital Signs: Vital Signs Temperature 98.0 F 03/06/23 07:34 Pulse Rate 83 03/06/23 07:34 Respiratory Rate 16 03/06/23 07:34 Blood Pressure 126/85 03/06/23 07:34 O2 Sat by Pulse Oximetry 100 03/06/23 07:34 Intake & Output: Intake & Output 03/03/23 03/04/23 03/05/23 03/06/23 11:59 11:59 11:59 11:59 Intake Total 960 4009 4003 3664 Output Total 1350 4300 4177 9421 Balance -566 -757 -290 -0247 Weight 107.7 kg 107.7 kg - Lab Result Diagrams: 03/03/23 04:00 03/03/23 04:40 Lab Results-Last 24 Hrs: Lab Results-Last 24 Hours 03/05/23 03/05/23 03/05/23 Range/Units 11:10 16:22 20:31 POC Glucometer 283 H 182 H 252 H (74 to 106) mg/dL 03/06/23 Range/Units 06:50 POC Glucometer 167 H (74 to 106) mg/dL Micro Results-Entire Visit: Accuchecks Date 03/06/23 Date 03/05/23 Date 03/05/23 Date 03/05/23 Date 03/05/23 Time 07:32 Time 20:39 Time 20:39 Time 16:44 Time 11:34 Discharge Exam General Appearance: no apparent distress, obese Neurologic Exam: alert, oriented x 3 Respiratory Exam: normal breath sounds, lungs clear, No respiratory distress Cardiovascular Exam: regular rate/rhythm, normal heart sounds Gastrointestinal/Abdomen Exam: soft, No tenderness, No mass Extremity Exam: normal inspection, normal range of motion Final Diagnosis/Problem List - Final Discharge Diagnosis/Problem (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 Assessment & Plan: home on po acyclovir and steroids, continue chronic pain meds. Code(s): G03.2 - BENIGN RECURRENT MENINGITIS [MOLLARET] (2) Chronic pain syndrome Current Visit: No Status: Chronic Code(s): G89.4 - CHRONIC PAIN SYNDROME (3) Diabetes mellitus Current Visit: No Status: Chronic Code(s): E11.9 - TYPE 2 DIABETES MELLITUS WITHOUT COMPLICATIONS - Discharge Disposition: Home, Self-Care Condition: Stable Prescriptions: New Acyclovir 400 mg PO TID #21 tablet Prednisone 20 mg [Deltasone 20 mg] 20 mg PO UD #18 tablet Continue Enalapril Maleate 10 mg [Vasotec 10 MG] 20 mg PO HS Multivitamin [Multi-Vitamin Daily] 1 each PO DAILY Aspirin 81 mg PO DAILY Testosterone Cypionate 1 ml IM UD Duloxetine HCl [Cymbalta] 60 mg PO BID Metformin HCl 500 mg [Glucophage 500 MG] 1,000 mg PO BIDWM Atorvastatin Calcium [Lipitor] 10 mg PO HS Morphine Sulfate Ir 15 mg [Msir 15 mg] 15 mg PO 0600,1200,1800,0000 Mineral Oil 30 ml PO TID Prednisone 20 mg [Deltasone 20 mg] 15 mg PO DAILY Esomeprazole Magnesium [Nexium 24Hr] 40 mg PO HS Follow up with: ANN ALEXIS MD [Primary Care Provider] -
[2023-03-06] MEDS: THERAGRAN MULTIVITAMIN PO SCH (08:22)
[2023-03-06] MEDS: ECOTRIN 81 MG PO SCH (08:22)
[2023-03-06] MEDS: Cymbalta 30 MG Capsule PO SCH (08:22)
[2023-03-06] MEDS: MINERAL OIL PO SCH (08:22)
[2023-03-06 11:53] VITALS: BP 125/76; PULSE 79; O2SAT 99
== END 2023-03-06 13:25 | disposition home or self-care (01) | DRG 75 ==
LOC: ED 18:55 → MED SURG 20:40 → OBSVTOIN 03-03 09:00
PROVIDERS: ADMIT Family Medicine; ATTEND Family Medicine
DX: G03.2 Benign recurrent meningitis [Mollaret] (principal); E87.1 Hypo-osmolality and hyponatremia; G89.4 Chronic pain syndrome; E11.9 Type 2 diabetes mellitus without complications; I10 Essential (primary) hypertension; E78.5 Hyperlipidemia, unspecified; Z79.899 Other long term (current) drug therapy; Z20.828 Contact with and (suspected) exposure to other viral communicable diseases
CPT/HCPCS: 0241U; 36000; 36415; 80053; 82947; 83036; 85025; 93268; 94762; 96365; 96374; 96375; 99284; G0378; J0133; J1170; J1200; J1720; J1815; J2405; A9270-GY

== ENCOUNTER 2023-03-22 19:18 | Inpatient (IN) | payer MEDICARE, BC ==
--- NOTE | 2023-03-22 20:07 | ERPHSYRPT ---
- History of Present Illness Time Seen by Provider: 03/22/23 20:02 Source: patient Exam Limitations: no limitations Patient Subjective Stated Complaint: pt states he is having a flare up of his mollarett's meningitis. states he is having increased pain in his neck and radi ating to head and all over Triage Nursing Assessment: pt alert and oriented, answers questions approp. pt ambulatory with steady gait noted. respirations nonlabored. pt dioaphoretic upon arrival to er. skin warm. pupils equal and reactive. pt able to move bilat upper and lower ext without diff. Physician History: This is a 53-year-old patient of Dr. Alexis who is a frequent patient in our emergency room for the same symptoms which is headache and neck pain. Patient has Mollaret's syndrome. In looking back at the old records the patient appears to have these flareups more often. Patient will be placed in observation and we will provide him with Solu-Cortef, Dilaudid, Rocephin and acyclovir intravenously. His symptoms are no different than his usual flareups. Timing/Duration: day(s) (Last few days), intermittent, worse Severity: moderate Baseline/Normal Cognition: alert oriented x 3 Current Cognition: alert oriented x 3 Baseline Gait: walks w/o assistance Associated Symptoms: denies symptoms Allergies/Adverse Reactions: pregabalin [From Lyrica] Adverse Reaction (Severe, Verified 03/22/23 19:43) Hives SOB hives azithromycin [From Zmax] Adverse Reaction (Mild, Verified 03/22/23 19:43) vomiting Home Medications: Aspirin 81 mg PO DAILY 01/24/14 [History] Enalapril Maleate 10 mg [Vasotec 10 MG] 20 mg PO HS 01/24/14 [History] Multivitamin [Multi-Vitamin Daily] 1 each PO DAILY 01/24/14 [History] Testosterone Cypionate 0.75 ml IM UD 10/09/14 [History] Duloxetine HCl [Cymbalta] 60 mg PO BID 04/23/15 [History] Metformin HCl 500 mg [Glucophage 500 MG] 1,000 mg PO BIDWM 04/20/20 [History] Atorvastatin Calcium [Lipitor] 10 mg PO HS 01/06/22 [History] Morphine Sulfate Ir 15 mg [Msir 15 mg] 15 mg PO 0600,1200,1800,0000 02/07/22 [History] Mineral Oil 30 ml PO TID 10/30/22 [History] Esomeprazole Magnesium [Nexium 24Hr] 40 mg PO HS 12/25/22 [History] Prednisone 20 mg [Deltasone 20 mg] 15 mg PO DAILY 12/25/22 [History] Hx Tetanus, Diphtheria Vaccination/Date Given: Yes Hx Influenza Vaccination/Date Given: No Hx Pneumococcal Vaccination/Date Given: No Immunizations Up to Date: Yes Travel Risk - International Travel Have you traveled outside of the country in past 3 weeks: No - Coronavirus Screening Are you exhibiting any of the following symptoms?: No Close contact with a COVID-19 positive Pt in past 14-21 Days: No - Vaccine Status Have you recieved a Covid-19 vaccination: Yes Square Cutter: Arzeda - Vaccination Dates Dates if Unknown: ? - Review of Systems Constitutional: No Symptoms Eyes: No Symptoms Ears, Nose, & Throat: No Symptoms Respiratory: No Symptoms Cardiac: No Symptoms Abdominal/Gastrointestinal: No Symptoms Genitourinary Symptoms: No Symptoms Musculoskeletal: Neck Pain Skin: No Symptoms Neurological: Headache Psychological: No Symptoms Endocrine: No Symptoms Hematologic/Lymphatic: No Symptoms Immunological/Allergic: No Symptoms All Other Systems: Reviewed and Negative - Past Medical History Pertinent Past Medical History: Yes Neurological History: Other ENT History: No Pertinent History Cardiac History: Hypertension Respiratory History: Sleep Apnea Endocrine Medical History: Other Musculoskeletal History: No Pertinent History GI Medical History: GERD History: No Pertinent History Psycho-Social History: Depression Male Reproductive Disorders: No Pertinent History Other Medical History: Mollaret's, spleen removed - Past Surgical History Past Surgical History: Yes Neuro Surgical History: No Pertinent History Cardiac: No Pertinent History Respiratory: No Pertinent History Gastrointestinal: Appendectomy, Other Genitourinary: No Pertinent History Musculoskeletal: No Pertinent History Male Surgical History: Vasectomy Other Surgical History: splenectomy, 2 nasal surgeries - Social History Smoking Status: Never smoker Exposure to second hand smoke: No Alcohol Use: None Drug Use: none Patient Lives Alone: No Significant Family History: no pertinent family hx - Nursing Vital Signs Nursing Vital Signs: Initial Vital Signs Temperature 97.5 F 03/22/23 19:36 Pulse Rate 118 H 03/22/23 19:36 Respiratory Rate 18 03/22/23 19:36 Blood Pressure 158/99 03/22/23 19:36 O2 Sat by Pulse Oximetry 98 03/22/23 19:36 Pain Scale Pain Intensity 9 - Tracy Coma Scale Best Eye Response ([place]): (4) open spontaneously Best Verbal Response ([place]): (5) oriented Best Motor Response ([place]): (6) obeys commands Tracy Total: 15 - Physical Exam General Appearance: mild distress, alert, anxiety, obese Eye Exam: bilateral eye: normal inspection, PERRL, EOMI Ears, Nose, Throat Exam: normal ENT inspection, pharynx normal, moist mucous membranes Neck Exam: normal inspection, supple, full range of motion Respiratory: normal breath sounds, lungs clear, airway intact, No chest tenderness, No respiratory distress Cardiovascular: regular rate/rhythm, normal heart sounds, normal peripheral pulses Gastrointestinal: soft, normal bowel sounds, No tenderness Rectal Exam: not done Back Exam: normal inspection, normal range of motion, No CVA tenderness, No vertebral tenderness Extremity Exam: normal inspection, normal range of motion, pelvis stable 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 The level of complexity and the work-up performed is based on the review of patient's past medical history, review of the patient's medication list, review of the patient's drug allergies, history of present illness and physical findings on examination. The work-up today will include placement of intravenous line, provide him with 100 cc an hour of normal saline, provide him with Dilaudid and Zofran injection, acyclovir intravenously, Rocephin intravenously and Solu- Cortef intravenously. Discussed with : Praveen Counseled pt/family regarding: lab results, diagnosis, need for follow-up Medical Desision Making - Diagnostic Testing Diagnostic test were ordered, analyzed, and reviewed by me: Yes - Risk of complications The pt has a high risk of morbidity or mortality based on: Decision regarding hospitilization or escalation of hosp level of care - Departure Departure Disposition: Observation Clinical Impression: Mollaret's syndrome Condition: Stable Critical Care Time: No Referrals: ANN ALEXIS MD [Primary Care Provider] - Follow up/PCP as directed
[2023-03-22] MEDS ORDERED: Hydromorphone 1 mg/ml Injection IV ONE (20:18)
[2023-03-22] MEDS ORDERED: Zofran 4 MG/2 ML VIAL IV ONE (20:20)
[2023-03-22] MEDS ORDERED: Zovirax INJ*** 500 MG in D5w 100ML Mini Bag 100 ML 100 ML IV ONE (20:21)
[2023-03-22] MEDS ORDERED: solu-CORTEF 100MG IV ONE (20:21)
[2023-03-22] MEDS ORDERED: Zofran 4 MG/2 ML VIAL ONE (20:25)
[2023-03-22] MEDS ORDERED: Zovirax INJ IV ONE (20:25)
[2023-03-22] MEDS ORDERED: Hydromorphone 1 mg/ml Injection ONE (20:26)
[2023-03-22] MEDS ORDERED: D5w 100ML Mini Bag 100 ML 0 ML IV ONE (20:26)
[2023-03-22] MEDS ORDERED: solu-CORTEF 100MG ONE (20:26)
[2023-03-22] MEDS ORDERED: SODIUM CHLORIDE MINI IV SCH (20:30)
[2023-03-22] MEDS ORDERED: solu-CORTEF 100MG IV SCH (20:30)
[2023-03-22] MEDS ORDERED: ZOVIRAX IV SCH (20:30)
[2023-03-22 20:33] LABS: Absolute Neutrophil Ct (ANC) 5.02 x10^3/uL (1.4-6.9); BASOPHIL % 0.7 % (0.0-0.4); Basophil (Absolute #) 0.05 x10^3/uL (0-0.4); Eosinophil % 1.8 % (0.00-5.0); Eosinophil (Absolute #) 0.13 x10^3/uL (0-0.5); Hematocrit 44.8 % (42-50); Hemoglobin 14.3 g/dL (12.5-18.0); IMMATURE GRAN # 0.05 x10^3u/L (0.00-0.03); IMMATURE GRAN % 0.7 % (0.00-0.4); Mean Corpuscular Hemoglobin 28.7 pg (26-32); Mean Corpuscular Hgb Concent. 31.9 g/dL (32-36); Mean Platelet Volume 10.3 fL (7.5-11.0); Monocyte (Absolute #) 0.44 x10^3/uL (0.0-1.3); Neutrophil % 67.8 % (36.0-66.0); Platelet Count 349 x10^3/uL (150-450); Red Blood Count 4.98 x10^6/uL (4.1-5.6); Red Cell Distribution Width 14.6 % (11.5-14.0); White Blood Count 7.4 x10^3/uL (4.0-10.5)
[2023-03-22 20:45] LABS: ALBUMIN 4.3 g/dL (3.5-5.0); ALKALINE PHOSPHATASE 101 U/L (38-126); ANION GAP 17.3 MEQ/L (5-15); BLOOD UREA NITROGEN 10 mg/dL (9-20); CHLORIDE 98 mmol/L (98-107); Calcium 9.2 mg/dL (8.4-10.2); Carbon Dioxide 27 mmol/L (22-30); Creatinine 1 0.76 mg/dL (0.66-1.25); EST GLOMERULAR FILTRATION RATE > 60.0 ML/MIN; Glucose 290 mg/dL (74-106); Potassium 5.1 mmol/L (3.5-5.1); SGOT/AST 34 U/L (17-59); SGPT/ALT 40 U/L (0-50); SODIUM 137 mmol/L (137-145); Total Protein 7.3 g/dL (6.3-8.2)
[2023-03-22] MEDS ORDERED: Hydromorphone 1 mg/ml Injection IV PRN (21:57)
[2023-03-22] MEDS ORDERED: Zofran 4 MG/2 ML VIAL IV PRN (21:57)
[2023-03-22] MEDS ORDERED: TYLENOL 325 MG PO PRN (21:57)
[2023-03-22] MEDS: Sodium Chloride 0.9% 1000 ML 1,000 ML IV SCH (22:10)
[2023-03-22] MEDS: solu-CORTEF 100MG IV SCH (22:12)
[2023-03-22] MEDS ORDERED: Sodium Chloride 0.9% 100 ML ONE (22:25)
[2023-03-22] MEDS: SODIUM CHLORIDE MINI IV SCH (22:31)
[2023-03-22] MEDS: ZOVIRAX IV SCH (22:31)
[2023-03-22] MEDS ORDERED: HYDROMORPHONE 30 MG/30 ML-NS PCA IV PRN (23:25)
[2023-03-23] MEDS: Cymbalta 30 MG Capsule PO SCH ×3 (00:52→21:36)
[2023-03-23] MEDS: Vasotec 10 MG PO SCH ×2 (00:52→21:36)
[2023-03-23] MEDS: Protonix 40MG Tablet PO SCH ×2 (00:52→21:36)
[2023-03-23] MEDS: Glucophage 500 MG PO SCH ×3 (00:53→17:03)
[2023-03-23] MEDS: Zocor 10MG PO SCH ×2 (00:53→21:36)
[2023-03-23] MEDS: MSIR 15 MG PO SCH ×5 (00:53→23:16)
[2023-03-23] MEDS: MINERAL OIL PO SCH ×4 (01:12→21:36)
[2023-03-23] MEDS ORDERED: Zovirax INJ IV ONE (04:59)
[2023-03-23] MEDS ORDERED: Sodium Chloride 100ML MINI-BAG PLUS 100 ML IV ONE (05:00)
[2023-03-23] MEDS ORDERED: Sterile H2O 10 ml IJ ONE ×2 (05:00→21:35)
[2023-03-23] MEDS: ZOVIRAX IV SCH ×3 (06:01→21:36)
[2023-03-23] MEDS: SODIUM CHLORIDE MINI IV SCH ×3 (06:01→21:36)
[2023-03-23] MEDS: solu-CORTEF 100MG IV SCH ×3 (06:02→21:36)
[2023-03-23] MEDS: HYDROMORPHONE 30 MG/30 ML-NS PCA IV PRN ×3 (08:00→12:07)
--- NOTE | 2023-03-23 08:14 | PCM.HP ---
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 He ascribes to depressive symptoms. - Review of Systems Constitutional: No Fever, No Chills Respiratory: No Cough, No Short Of Breath Cardiac: No Chest Pain, No Edema, No Syncope Abdominal/Gastrointestinal: No Abdominal Pain, No Nausea, No Vomiting, No Diarrhea Neurological: Headache All Other Systems: Reviewed and Negative Medications & Allergies Home Medications: Home Medication List Aspirin 81 mg PO DAILY 01/24/14 [History Confirmed 03/22/23] Enalapril Maleate 10 mg [Vasotec 10 MG] 20 mg PO HS 01/24/14 [History Confirmed 03/22/23] Multivitamin [Multi-Vitamin Daily] 1 each PO DAILY 01/24/14 [History Confirmed 03/22/23] Testosterone Cypionate 0.75 ml IM UD 10/09/14 [History Confirmed 03/22/23] Duloxetine HCl [Cymbalta] 60 mg PO BID 04/23/15 [History Confirmed 03/22/23] Metformin HCl 500 mg [Glucophage 500 MG] 1,000 mg PO BIDWM 04/20/20 [History Confirmed 03/22/23] Atorvastatin Calcium [Lipitor] 10 mg PO HS 01/06/22 [History Confirmed 03/22/23] Morphine Sulfate Ir 15 mg [Msir 15 mg] 15 mg PO 0600,1200,1800,0000 02/07/22 [History Confirmed 03/22/23] Mineral Oil 30 ml PO TID 10/30/22 [History Confirmed 03/22/23] Esomeprazole Magnesium [Nexium 24Hr] 40 mg PO HS 12/25/22 [History Confirmed 03/22/23] Prednisone 20 mg [Deltasone 20 mg] 15 mg PO DAILY 12/25/22 [History Confirmed 03/22/23] Allergies/Adverse Reactions: Allergies Allergy/AdvReac Type Severity Reaction Status Date / Time pregabalin [From Lyrica] AdvReac Severe Hives Verified 03/22/23 19:43 azithromycin [From Zmax] AdvReac Mild Verified 03/22/23 19:43 - Past Medical History Past Medical History: Yes Neurological History: Paralysis, Seizures ENT History: No Pertinent History Cardiac History: High Cholesterol, Hypertension Respiratory History: Sleep Apnea Endocrine Medical History: Diabetes Type II Musculoskelatal History: No Pertinent History GI Medical History: No Pertinent History History: No Pertinent History Pyscho-Social History: Depression Male Reproductive Disorders: No Pertinent History Comment: Mollaret's, spleen removed - Past Surgical History Past Surgical History: Yes Neuro Surgical History: No Pertinent History Cardiac History: No Pertinent History Respiratory Surgery: No Pertinent History GI Surgical History: Appendectomy, Other Genitourinary Surgical Hx: No Pertinent History Musculskeletal Surgical Hx: No Pertinent History Male Surgical History: Vasectomy Other Surgical History: CONSIDERED PRE-DIABETIC DUE STEROIDS. SPLENECTOMY 1988 - Social History Smoking Status: Never smoker Exposure to second hand smoke: No Alcohol: None Drug Use: none Significant Family History: no pertinent family hx - Physical Exam Vital Signs: Vital Signs - 24 hr Temp Pulse Resp BP Pulse Ox 03/23/23 07:33 93 L 03/23/23 07:25 97.7 F 95 H 18 136/78 96 03/23/23 07:00 18 03/23/23 04:07 18 95 03/23/23 04:00 98.7 F 100 H 20 128/72 98 03/23/23 00:07 18 92 L 03/22/23 22:46 97.8 F 97 H 20 148/88 03/22/23 21:00 104 H 18 133/87 95 03/22/23 20:17 98 03/22/23 20:00 108 H 20 145/87 96 03/22/23 19:36 97.5 F 118 H 18 158/99 98 General Appearance: no apparent distress, obese Neurologic Exam: alert, oriented x 3, cooperative, bracer II-XII nml as tested, No motor deficits, No sensory deficit Neck Exam: non-tender, supple Respiratory Exam: normal breath sounds, lungs clear, No respiratory distress Cardiovascular Exam: regular rate/rhythm, normal heart sounds, normal peripheral pulses Gastrointestinal/Abdomen Exam: soft, normal bowel sounds, No tenderness, No mass Results - Labs Lab/Micro Results: Lab Results-Last 24 Hours 03/22/23 03/22/23 03/23/23 Range/Units 20:31 20:31 06:52 WBC 7.4 (4.0-10.5) x10^3/uL RBC 4.98 (4.1-5.6) x10^6/uL Hgb 14.3 (12.5-18.0) g/dL Hct 44.8 (42-50) % MCV 90.0 (78-100) fL MCH 28.7 (26-32) pg MCHC 31.9 L (32-36) g/dL RDW 14.6 H (11.5-14.0) % Plt Count 349 (150-450) x10^3/uL MPV 10.3 (7.5-11.0) fL Gran % 67.8 H (36.0-66.0) % Immature Gran % (Auto) 0.7 H (0.00-0.4) % Nucleat RBC Rel Count 0.0 (0.00-0.1) % Eos # (Auto) 0.13 (0-0.5) x10^3/uL Immature Gran # (Auto) 0.05 H (0.00-0.03) x10^3u/L Absolute Lymphs (auto) 1.70 (1.0-4.6) x10^3/uL Absolute Monos (auto) 0.44 (0.0-1.3) x10^3/uL Absolute Nucleated RBC 0.00 (0.00-0.01) x10^3u/L Lymphocytes % 23.0 L (24.0-44.0) % Monocytes % 6.0 (0.0-12.0) % Eosinophils % 1.8 (0.00-5.0) % Basophils % 0.7 (0.0-0.4) % Absolute Granulocytes 5.02 (1.4-6.9) x10^3/uL Basophils # 0.05 (0-0.4) x10^3/uL Sodium 137 (137-145) mmol/L Potassium 5.1 (3.5-5.1) mmol/L Chloride 98 (98-107) mmol/L Carbon Dioxide 27 (22-30) mmol/L Anion Gap 17.3 H (5-15) MEQ/L BUN 10 (9-20) mg/dL Creatinine 0.76 (0.66-1.25) mg/dL Estimated GFR > 60.0 ML/MIN Glucose 290 H (74-106) mg/dL POC Glucometer 154 H (74 to 106) mg/dL Calcium 9.2 (8.4-10.2) mg/dL Total Bilirubin 0.30 (0.2-1.3) mg/dL AST 34 (17-59) U/L ALT 40 (0-50) U/L Alkaline Phosphatase 101 (38-126) U/L Serum Total Protein 7.3 (6.3-8.2) g/dL Albumin 4.3 (3.5-5.0) g/dL Assessment/Plan (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 Assessment & Plan: IV acyclovir, solu cortef, fluids and account developer Code(s): G03.2 - BENIGN RECURRENT MENINGITIS [MOLLARET] (2) Depression Current Visit: Yes Status: Acute Assessment & Plan: add abilify, continue cymbalta Code(s): F32.A - DEPRESSION, UNSPECIFIED (3) Type 2 diabetes mellitus Current Visit: No Status: Chronic Qualifiers:
[2023-03-23] MEDS: Sodium Chloride 0.9% 1000 ML 1,000 ML IV SCH ×2 (10:34→23:17)
[2023-03-23] MEDS: HUMULIN R SQ PRN ×3 (11:48→22:08)
[2023-03-23] MEDS: Abilify 10 MG PO SCH (21:37)
[2023-03-23] MEDS: BENADRYL 50 MG/ML IV PRN (23:16)
[2023-03-24 04:59] LABS: Eosinophil % 0.5 % (0.00-5.0); Hematocrit 42.8 % (42-50); Hemoglobin 13.3 g/dL (12.5-18.0); Lymphocytes % 30.9 % (24.0-44.0); Mean Cell Volume 91.3 fL (78-100); Mean Corpuscular Hemoglobin 28.4 pg (26-32); Mean Corpuscular Hgb Concent. 31.1 g/dL (32-36); Monocytes % 5.5 % (0.0-12.0); Neutrophil % 61.7 % (36.0-66.0); Platelet Count 339 x10^3/uL (150-450); Red Blood Count 4.69 x10^6/uL (4.1-5.6); White Blood Count 10.8 x10^3/uL (4.0-10.5)
[2023-03-24 05:00] LABS: Absolute Neutrophil Ct (ANC) 6.66 x10^3/uL (1.4-6.9); BASOPHIL % 0.6 % (0.0-0.4); Basophil (Absolute #) 0.07 x10^3/uL (0-0.4); Eosinophil (Absolute #) 0.05 x10^3/uL (0-0.5); IMMATURE GRAN # 0.09 x10^3u/L (0.00-0.03); IMMATURE GRAN % 0.8 % (0.00-0.4); Lymphocyte (Absolute #) 3.34 x10^3/uL (1.0-4.6); Monocyte (Absolute #) 0.59 x10^3/uL (0.0-1.3)
[2023-03-24] MEDS: solu-CORTEF 100MG IV SCH ×3 (05:17→21:28)
[2023-03-24] MEDS: MSIR 15 MG PO SCH ×4 (05:17→23:51)
[2023-03-24] MEDS: ZOVIRAX IV SCH ×3 (05:22→21:28)
[2023-03-24] MEDS: SODIUM CHLORIDE MINI IV SCH ×3 (05:22→21:28)
[2023-03-24 05:35] LABS: ALBUMIN 3.8 g/dL (3.5-5.0); ALKALINE PHOSPHATASE 87 U/L (38-126); ANION GAP 11.8 MEQ/L (5-15); BLOOD UREA NITROGEN 11 mg/dL (9-20); CHLORIDE 101 mmol/L (98-107); Calcium 8.5 mg/dL (8.4-10.2); Carbon Dioxide 31 mmol/L (22-30); Creatinine 1 0.73 mg/dL (0.66-1.25); EST GLOMERULAR FILTRATION RATE > 60.0 ML/MIN; Glucose 153 mg/dL (74-106); Potassium 4.1 mmol/L (3.5-5.1); SGOT/AST 28 U/L (17-59); SGPT/ALT 34 U/L (0-50); SODIUM 140 mmol/L (137-145); Total Protein 6.7 g/dL (6.3-8.2)
[2023-03-24] MEDS: HYDROMORPHONE 30 MG/30 ML-NS PCA IV PRN ×2 (05:59→22:07)
[2023-03-24] MEDS: MINERAL OIL PO SCH ×3 (09:10→21:27)
[2023-03-24] MEDS: Glucophage 500 MG PO SCH ×2 (09:10→17:46)
[2023-03-24] MEDS: Cymbalta 30 MG Capsule PO SCH ×2 (09:10→21:28)
[2023-03-24] MEDS ORDERED: Sterile H2O 10 ml IJ ONE ×2 (14:32→21:25)
[2023-03-24] MEDS: Sodium Chloride 0.9% 1000 ML 1,000 ML IV SCH (17:24)
[2023-03-24] MEDS: Abilify 10 MG PO SCH (21:28)
[2023-03-24] MEDS: Protonix 40MG Tablet PO SCH (21:29)
[2023-03-24] MEDS: Vasotec 10 MG PO SCH (21:29)
[2023-03-24] MEDS: Zocor 10MG PO SCH (21:29)
[2023-03-24] MEDS: HUMULIN R SQ PRN (21:42)
[2023-03-25] MEDS: ZOVIRAX IV SCH ×3 (06:09→21:58)
[2023-03-25] MEDS: SODIUM CHLORIDE MINI IV SCH ×3 (06:09→21:58)
[2023-03-25] MEDS: solu-CORTEF 100MG IV SCH ×3 (06:09→21:58)
[2023-03-25] MEDS: MSIR 15 MG PO SCH ×4 (06:11→23:32)
[2023-03-25] MEDS: MINERAL OIL PO SCH ×3 (08:21→21:58)
[2023-03-25] MEDS: Glucophage 500 MG PO SCH ×2 (08:21→18:03)
[2023-03-25] MEDS: Cymbalta 30 MG Capsule PO SCH ×2 (08:21→21:58)
[2023-03-25] MEDS ORDERED: TESTOSTERONE CYPIONATE 100 MG/ML IM SCH (09:15)
[2023-03-25] MEDS ORDERED: MEDICATION INTERVENTION MC SCH (09:30)
--- NOTE | 2023-03-25 09:36 | PCM.NOTE ---
Date and Time: 03/25/23934 Subjective Assessment: patient still not feeling well since admission, he has had some improvement but pain and debility are still present Objective Exam General Appearance: no apparent distress, obese Neurologic Exam: alert, oriented x 3, cooperative Neck Exam: supple Respiratory Exam: normal breath sounds, lungs clear, No respiratory distress Cardiovascular Exam: regular rate/rhythm, normal heart sounds Gastrointestinal/Abdomen Exam: soft OBJECTIVE DATA Vital Signs: Vital Signs - 24 hr Temp Pulse Resp BP Pulse Ox 03/25/23 07:00 16 98 03/25/23 06:49 96.2 F 76 16 136/79 98 03/25/23 06:22 98 03/25/23 06:07 17 98 03/25/23 04:00 17 98 03/25/23 02:07 17 98 03/25/23 00:00 17 99 03/24/23 23:42 97.1 F 89 19 130/78 98 03/24/23 22:07 20 97 03/24/23 20:00 97.3 F 103 H 18 134/75 96 03/24/23 17:27 97 03/24/23 16:00 97.2 F 101 H 19 130/87 97 03/24/23 12:00 97.1 F 92 H 19 126/73 96 03/24/23 09:59 19 96 Pain Assessment - Last Documented Pain Intensity 8 Pain Scale Used 0-10 Pain Scale Intake and Output: Intake & Output 03/22/23 03/23/23 03/24/23 03/25/23 11:59 11:59 11:59 11:59 Intake Total 1800 3756 2631 Output Total 1150 3675 1750 Balance 650 81 881 Weight 111.5 kg 114.3 kg 114.1 kg Lab Results: Lab Results-Last 24 Hours 03/24/23 03/24/23 03/24/23 Range/Units 11:56 15:45 21:34 POC Glucometer 292 H 239 H 261 H (74 to 106) mg/dL 03/25/23 Range/Units 06:42 POC Glucometer 133 H (74 to 106) mg/dL Assessment/Plan (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 Assessment & Plan: continue IV acyclovir, solu cortef, fluids and MANAGER INTERN Code(s): G03.2 - BENIGN RECURRENT MENINGITIS [MOLLARET] (2) Depression Current Visit: Yes Status: Acute Code(s): F32.A - DEPRESSION, UNSPECIFIED (3) Type 2 diabetes mellitus Current Visit: No Status: Chronic Qualifiers:
[2023-03-25] MEDS ORDERED: NON-FORMULARY ITEM (Aspirin [Aspirin] 81 MG Tablet) PO SCH (10:00)
[2023-03-25] MEDS ORDERED: DELTASONE 5 MG PO SCH (10:00)
[2023-03-25] MEDS ORDERED: NON-FORMULARY ITEM (Multivitamin [Multi-Vitamin Daily] 1 EACH Tablet) PO SCH (10:00)
[2023-03-25] MEDS: Acidophilus TABLET PO SCH (12:15)
[2023-03-25] MEDS: THERAGRAN MULTIVITAMIN PO SCH (12:15)
[2023-03-25] MEDS: ECOTRIN 81 MG PO SCH (12:15)
[2023-03-25] MEDS: Sodium Chloride 0.9% 1000 ML 1,000 ML IV SCH ×2 (14:27→18:30)
[2023-03-25] MEDS ORDERED: Sterile H2O 10 ml IJ ONE ×2 (15:06→21:32)
[2023-03-25] MEDS: HYDROMORPHONE 30 MG/30 ML-NS PCA IV PRN (16:41)
[2023-03-25] MEDS: HUMULIN R SQ PRN ×2 (18:49→21:57)
[2023-03-25] MEDS: Zocor 10MG PO SCH (21:58)
[2023-03-25] MEDS: Protonix 40MG Tablet PO SCH (21:58)
[2023-03-25] MEDS: Abilify 10 MG PO SCH (21:59)
[2023-03-25] MEDS: Vasotec 10 MG PO SCH (21:59)
[2023-03-25] MEDS: BENADRYL 50 MG/ML IV PRN (23:32)
[2023-03-26] MEDS: solu-CORTEF 100MG IV SCH (05:16)
[2023-03-26] MEDS: SODIUM CHLORIDE MINI IV SCH ×3 (05:16→22:04)
[2023-03-26] MEDS: MSIR 15 MG PO SCH ×4 (05:16→23:50)
[2023-03-26] MEDS: ZOVIRAX IV SCH ×3 (05:16→22:04)
--- NOTE | 2023-03-26 07:58 | PCM.NOTE ---
Date and Time: 03/26/23 0757 Subjective Assessment: patient still having significant headache and neck pain, c/o congestion/cold symptoms, no fever, no cough Objective Exam General Appearance: no apparent distress, obese Skin Exam: normal color, warm, dry Respiratory Exam: normal breath sounds, lungs clear, No respiratory distress Cardiovascular Exam: regular rate/rhythm, normal heart sounds OBJECTIVE DATA Vital Signs: Vital Signs - 24 hr Temp Pulse Resp BP Pulse Ox 03/26/23 07:00 18 99 03/26/23 05:53 99 03/26/23 04:41 17 95 03/26/23 04:00 97.0 F 75 20 145/86 97 03/26/23 00:41 18 99 03/26/23 00:00 96.9 F 91 H 20 135/81 99 03/25/23 20:41 18 98 03/25/23 20:00 97.3 F 83 18 119/67 96 03/25/23 19:54 94 L 03/25/23 16:00 97.1 F 77 17 134/84 97 03/25/23 12:00 96.0 F 99 H 16 133/79 99 Pain Assessment - Last Documented Pain Intensity 8 Pain Scale Used 0-10 Pain Scale Intake and Output: Intake & Output 03/23/23 03/24/23 03/25/23 03/26/23 11:59 11:59 11:59 11:59 Intake Total 1800 3756 2631 2885 Output Total 1150 3675 1750 3200 Balance 650 81 881 -315 Weight 111.5 kg 114.3 kg 114.1 kg 114 kg Lab Results: Lab Results-Last 24 Hours 03/25/23 03/25/23 03/25/23 Range/Units 11:58 15:45 21:51 POC Glucometer 300 H 217 H 257 H (74 to 106) mg/dL 03/26/23 Range/Units 07:46 POC Glucometer 162 H (74 to 106) mg/dL Multi-Disciplinary Progress Notes: Multi-Disciplinary Progress Notes 03/25/23 12:47 Case Management Note by Kasie Garcia S/W PATIENT- HE CONTINUES TO PLAN TO DC HOME TO HIS PLF AT TIME OF DC Initialized on 03/25/23 12:47 - END OF NOTE Assessment/Plan (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 Assessment & Plan: continue current management, add claritin/flonase for congestion. likely discharge home tomorrow Code(s): G03.2 - BENIGN RECURRENT MENINGITIS [MOLLARET] (2) Depression Current Visit: Yes Status: Acute Code(s): F32.A - DEPRESSION, UNSPECIFIED (3) Type 2 diabetes mellitus Current Visit: No Status: Chronic Qualifiers:
[2023-03-26] MEDS: Glucophage 500 MG PO SCH ×2 (08:09→17:02)
[2023-03-26] MEDS: HYDROMORPHONE 30 MG/30 ML-NS PCA IV PRN (09:15)
[2023-03-26] MEDS: HUMULIN R SQ PRN ×4 (09:28→22:02)
[2023-03-26] MEDS: CLARITIN 10 MG PO SCH (10:01)
[2023-03-26] MEDS: Cymbalta 30 MG Capsule PO SCH ×2 (10:01→22:03)
[2023-03-26] MEDS: Acidophilus TABLET PO SCH (10:02)
[2023-03-26] MEDS: THERAGRAN MULTIVITAMIN PO SCH (10:02)
[2023-03-26] MEDS: ECOTRIN 81 MG PO SCH (10:02)
[2023-03-26] MEDS: Flonase NASAL NS SCH (10:03)
[2023-03-26] MEDS: MINERAL OIL PO SCH ×3 (10:03→22:04)
[2023-03-26] MEDS: Sodium Chloride 0.9% 1000 ML 1,000 ML IV SCH ×3 (10:45→12:58)
[2023-03-26] MEDS: solu-MEDROL 20 MG, Sterile H2O 10 ml 1 ML IV SCH ×4 (13:51→22:03)
[2023-03-26] MEDS: Abilify 10 MG PO SCH (22:03)
[2023-03-26] MEDS: Zocor 10MG PO SCH (22:03)
[2023-03-26] MEDS: Protonix 40MG Tablet PO SCH (22:03)
[2023-03-26] MEDS: Vasotec 10 MG PO SCH (22:03)
[2023-03-26] MEDS: BENADRYL 50 MG/ML IV PRN (23:50)
[2023-03-27] MEDS ORDERED: solu-MEDROL ONE (06:00)
[2023-03-27] MEDS: SODIUM CHLORIDE MINI IV SCH ×3 (06:17→21:43)
[2023-03-27] MEDS: MSIR 15 MG PO SCH ×4 (06:17→23:08)
[2023-03-27] MEDS: ZOVIRAX IV SCH ×3 (06:17→21:43)
[2023-03-27] MEDS: solu-MEDROL 20 MG, Sterile H2O 10 ml 1 ML IV SCH ×6 (06:18→21:44)
[2023-03-27] MEDS: HUMULIN R SQ PRN ×4 (08:07→21:47)
[2023-03-27] MEDS: Glucophage 500 MG PO SCH ×2 (08:07→16:04)
--- NOTE | 2023-03-27 08:32 | PCM.DS ---
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 he is improved, added abilify for depression. he is improving - Vitals & Intake/Output Vital Signs: Vital Signs Temperature 97.5 F 03/27/23 07:44 Pulse Rate 77 03/27/23 07:44 Respiratory Rate 19 03/27/23 07:44 Blood Pressure 138/69 03/27/23 07:44 O2 Sat by Pulse Oximetry 98 03/27/23 08:03 Intake & Output: Intake & Output 03/24/23 03/25/23 03/26/23 03/27/23 11:59 11:59 11:59 11:59 Intake Total 3756 2631 2885 2284 Output Total 3675 1750 3200 2000 Balance 81 881 -315 284 Weight 114.3 kg 114.1 kg 114 kg 113.2 kg - Lab Result Diagrams: 03/24/23 04:10 03/24/23 04:10 Lab Results-Last 24 Hrs: Lab Results-Last 24 Hours 03/26/23 03/26/23 03/26/23 Range/Units 11:28 16:02 21:38 POC Glucometer 258 H 331 H 165 H (74 to 106) mg/dL 03/27/23 Range/Units 07:08 POC Glucometer 194 H (74 to 106) mg/dL Micro Results-Entire Visit: Accuchecks Date 03/27/23 Date 03/26/23 Date 03/26/23 Time 07:43 Time 16:56 Time 11:42 Discharge Exam General Appearance: no apparent distress, obese Neurologic Exam: alert, oriented x 3 Respiratory Exam: normal breath sounds, lungs clear, No respiratory distress Cardiovascular Exam: regular rate/rhythm Gastrointestinal/Abdomen Exam: soft, No tenderness, No mass Skin Exam: normal color, warm, dry Final Diagnosis/Problem List - Final Discharge Diagnosis/Problem (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 Code(s): G03.2 - BENIGN RECURRENT MENINGITIS [MOLLARET] (2) Depression Current Visit: Yes Status: Acute Code(s): F32.A - DEPRESSION, UNSPECIFIED (3) Type 2 diabetes mellitus Current Visit: No Status: Chronic - Discharge Disposition: Home, Self-Care Condition: Stable Prescriptions: New ARIPiprazole [Abilify Mycite] 5 mg PO DAILY #30 tab Acyclovir 400 mg PO TID #15 tablet Methylprednisolone Packet [Medrol Dosepack] 4 mg PO UD #30 packet Continue Enalapril Maleate 10 mg [Vasotec 10 MG] 20 mg PO HS Multivitamin [Multi-Vitamin Daily] 1 each PO DAILY Aspirin 81 mg PO DAILY Testosterone Cypionate 0.75 ml IM UD Duloxetine HCl [Cymbalta] 60 mg PO BID Metformin HCl 500 mg [Glucophage 500 MG] 1,000 mg PO BIDWM Atorvastatin Calcium [Lipitor] 10 mg PO HS Morphine Sulfate Ir 15 mg [Msir 15 mg] 15 mg PO 0600,1200,1800,0000 Mineral Oil 30 ml PO TID Prednisone 20 mg [Deltasone 20 mg] 15 mg PO DAILY Esomeprazole Magnesium [Nexium 24Hr] 40 mg PO HS Lactobacillus Combo No.10 [Probiotic] 1 each PO DAILY Follow up with: ANN ALEXIS MD [Primary Care Provider] -
[2023-03-27] MEDS: ECOTRIN 81 MG PO SCH (09:29)
[2023-03-27] MEDS: Cymbalta 30 MG Capsule PO SCH ×2 (09:29→21:44)
[2023-03-27] MEDS: Acidophilus TABLET PO SCH (09:30)
[2023-03-27] MEDS: THERAGRAN MULTIVITAMIN PO SCH (09:30)
[2023-03-27] MEDS: CLARITIN 10 MG PO SCH (09:30)
[2023-03-27] MEDS: Flonase NASAL NS SCH (09:30)
[2023-03-27] MEDS: MINERAL OIL PO SCH ×3 (09:31→21:44)
[2023-03-27] MEDS: Sodium Chloride 0.9% 1000 ML 1,000 ML IV SCH (16:05)
[2023-03-27] MEDS: HYDROMORPHONE 30 MG/30 ML-NS PCA IV PRN (19:05)
[2023-03-27] MEDS: Protonix 40MG Tablet PO SCH (21:44)
[2023-03-27] MEDS: Vasotec 10 MG PO SCH (21:44)
[2023-03-27] MEDS: Abilify 10 MG PO SCH (21:44)
[2023-03-27] MEDS: Zocor 10MG PO SCH (21:44)
[2023-03-27] MEDS: BENADRYL 50 MG/ML IV PRN (23:07)
[2023-03-28] MEDS: Sodium Chloride 0.9% 1000 ML 1,000 ML IV SCH ×2 (03:18→07:34)
[2023-03-28] MEDS ORDERED: solu-MEDROL ONE (05:47)
[2023-03-28] MEDS: solu-MEDROL 20 MG, Sterile H2O 10 ml 1 ML IV SCH ×2 (06:05)
[2023-03-28] MEDS: ZOVIRAX IV SCH (06:06)
[2023-03-28] MEDS: SODIUM CHLORIDE MINI IV SCH (06:06)
[2023-03-28] MEDS ORDERED: MSIR 15 MG PO SCH (06:15)
[2023-03-28 07:16] VITALS: BP 131/73; PULSE 83; O2SAT 95
[2023-03-28] MEDS: Glucophage 500 MG PO SCH (07:43)
== END 2023-03-28 09:32 | disposition home or self-care (01) | DRG 76 ==
LOC: ED 19:18 → MED SURG 21:55 → OBSVTOIN 03-23 08:14
PROVIDERS: ADMIT General Practice; ATTEND Family Medicine
DX: G03.2 Benign recurrent meningitis [Mollaret] (principal); I10 Essential (primary) hypertension; E11.9 Type 2 diabetes mellitus without complications; G47.30 Sleep apnea, unspecified; F32.A Depression, unspecified; Z79.899 Other long term (current) drug therapy; Z20.828 Contact with and (suspected) exposure to other viral communicable diseases
CPT/HCPCS: 36000; 36415; 80053; 82947; 83735; 85025; 93268; 94762; 96365; 96374; 96375; 99284; G0378; J0133; J1170; J1200; J1720; J1815; J2405; J2920; A9270-GY

== ENCOUNTER 2023-04-18 15:35 | Inpatient (IN) | payer MEDICARE, BC ==
[2023-04-18] MEDS ORDERED: Hydromorphone 1 mg/ml Injection IV ONE (16:57)
--- NOTE | 2023-04-18 17:02 | ERPHSYRPT ---
- History of Present Illness Time Seen by Provider: 04/18/23 17:00 Patient Subjective Stated Complaint: Pt reports "my meningitis is flared up again, I was just in the hospital about three weeks ago with it. The flare ups s eem to be occuring more frequently." Triage Nursing Assessment: Pt alert and oriented x3. No apparent respiratory distress. Ambulated to ED cot without difficulty. Skin w/p/d. Pt appeared to be crying due to pain. Physician History: Patient is 53-year-old male with significant past medical history of aseptic meningitis for which patient has a recurrent headache and for which patient has a multiple hospital admission for mainly headache and pain management. Patient started having a pain in his neck radiating to the spine [facility] Patient denies any fever chills but complaining of nausea and occasional vomiting. Timing/Duration: today Severity: moderate Associated Symptoms: denies symptoms Allergies/Adverse Reactions: pregabalin [From Lyrica] Adverse Reaction (Severe, Verified 04/18/23 16:00) Hives SOB hives azithromycin [From Zmax] Adverse Reaction (Mild, Verified 04/18/23 16:00) vomiting Home Medications: Aspirin 81 mg PO DAILY 01/24/14 [History] Enalapril Maleate 10 mg [Vasotec 10 MG] 20 mg PO HS 01/24/14 [History] Multivitamin [Multi-Vitamin Daily] 1 each PO DAILY 01/24/14 [History] Testosterone Cypionate 0.75 ml IM UD 10/09/14 [History] Duloxetine HCl [Cymbalta] 60 mg PO BID 04/23/15 [History] Metformin HCl 500 mg [Glucophage 500 MG] 1,000 mg PO BIDWM 04/20/20 [History] Atorvastatin Calcium [Lipitor] 10 mg PO HS 01/06/22 [History] Morphine Sulfate Ir 15 mg [Msir 15 mg] 15 mg PO 0600,1200,1800,0000 02/07/22 [History] Mineral Oil 30 ml PO TID 10/30/22 [History] Esomeprazole Magnesium [Nexium 24Hr] 40 mg PO HS 12/25/22 [History] Lactobacillus Combo No.10 [Probiotic] 1 each PO DAILY 03/25/23 [History] Hx Tetanus, Diphtheria Vaccination/Date Given: Yes Hx Influenza Vaccination/Date Given: No Hx Pneumococcal Vaccination/Date Given: Yes Travel Risk - International Travel Have you traveled outside of the country in past 3 weeks: No - Coronavirus Screening Are you exhibiting any of the following symptoms?: No Close contact with a COVID-19 positive Pt in past 14-21 Days: No - Vaccine Status Have you recieved a Covid-19 vaccination: Yes 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 - Review of Systems Constitutional: Malaise, No Fever, No Chills Eyes: No Symptoms Ears, Nose, & Throat: No Symptoms Respiratory: No Cough, No Dyspnea Cardiac: No Chest Pain, No Edema, No Syncope Abdominal/Gastrointestinal: No Abdominal Pain, No Nausea, No Vomiting, No Diarrhea Genitourinary Symptoms: No Dysuria Musculoskeletal: No Back Pain, No Neck Pain Skin: No Rash Neurological: Headache, No Dizziness, No Focal Weakness, No Sensory Changes Psychological: No Symptoms Endocrine: No Symptoms All Other Systems: Reviewed and Negative - Past Medical History Pertinent Past Medical History: Yes Neurological History: Paralysis, Seizures ENT History: No Pertinent History Cardiac History: High Cholesterol, Hypertension Respiratory History: Sleep Apnea Endocrine Medical History: Diabetes Type II Musculoskeletal History: No Pertinent History GI Medical History: No Pertinent History History: No Pertinent History Psycho-Social History: Depression Male Reproductive Disorders: No Pertinent History Other Medical History: Mollaret's, spleen removed - Past Surgical History Past Surgical History: Yes Neuro Surgical History: No Pertinent History Cardiac: No Pertinent History Respiratory: No Pertinent History Gastrointestinal: Appendectomy, Other Genitourinary: No Pertinent History Musculoskeletal: No Pertinent History Male Surgical History: Vasectomy Other Surgical History: CONSIDERED PRE-DIABETIC DUE STEROIDS. SPLENECTOMY 1988 - Social History Smoking Status: Never smoker Exposure to second hand smoke: No Alcohol Use: None Drug Use: none Patient Lives Alone: No Significant Family History: no pertinent family hx - Nursing Vital Signs Nursing Vital Signs: Initial Vital Signs Temperature 97.6 F 04/18/23 15:53 Pulse Rate 119 H 04/18/23 15:53 Respiratory Rate 04/18/23 15:53 Blood Pressure 137/88 04/18/23 15:53 O2 Sat by Pulse Oximetry 96 04/18/23 15:53 Pain Scale Pain Intensity 9 - Physical Exam General Appearance: no apparent distress, alert Eye Exam: PERRL/EOMI, eyes nml inspection Ears, Nose, Throat Exam: normal ENT inspection, TMs normal, pharynx normal, moist mucous membranes Neck Exam: normal inspection, non-tender, supple, full range of motion Respiratory Exam: normal breath sounds, lungs clear, No respiratory distress Cardiovascular Exam: regular rate/rhythm, normal heart sounds, normal peripheral pulses Gastrointestinal/Abdomen Exam: soft, normal bowel sounds, No tenderness, No mass Back Exam: normal inspection, normal range of motion, No CVA tenderness, No vertebral tenderness Extremity Exam: normal inspection, normal range of motion, pelvis stable Neurologic Exam: alert, oriented x 3, cooperative, normal mood/affect, nml cerebellar function, nml station & gait, sensation nml, No motor deficits Skin Exam: normal color, warm, dry, No rash Lymphatic Exam: No adenopathy SpO2: 96 - Course Nursing assessment & vital signs reviewed: Yes Ordered Tests: Active Orders 24 hr Category Date Time Status Up Ad Mary ROUTINE Activity 04/18/23 17:44 Active Code Status Order ROUTINE Care 04/18/23 17:43 Active IV Care Q6H Care 04/18/23 17:[address] in Observation ROUTINE Care 04/18/23 17:43 Active CBC W DIFF AM.LAB Lab 04/19/23 04:00 Ordered CBC W DIFF Stat Lab 04/18/23 17:18 Completed CMP AM.LAB Lab 04/19/23 04:00 Ordered CMP Stat Lab 04/18/23 17:18 Completed Erythrocyte Sedimentation Rate Stat Lab 04/18/23 17:18 Completed Medication Summary Generic Name Dose Route Start Last Admin Trade Name Freq PRN Reason Stop Dose Admin Sodium Chloride 1,000 mls @ 999 mls/hr 04/18/23 17:04 04/18/23 17:23 Sodium Chloride 0.9% 1000 Ml IV 04/18/23 18:04 999 mls/hr .Q1H1M STA Administration Sodium Chloride 1,000 mls @ 100 mls/hr 04/18/23 17:45 Sodium Chloride 0.9% 1000 Ml IV 05/18/23 17:44 .Q10H GLENNA Discontinued Medications Generic Name Dose Route Start Last Admin Trade Name Freq PRN Reason Stop Dose Admin Hydromorphone HCl 1 mg 04/18/23 16:57 04/18/23 17:25 Hydromorphone 1 Mg/1ml Inj IV 04/18/23 16:58 1 mg STAT ONE Administration Hydromorphone HCl Confirm 04/18/23 17:22 Hydromorphone 1 Mg/1ml Inj Administered 04/18/23 17:23 Dose 1 mg .ROUTE .STK-MED ONE Sodium Chloride Confirm 04/18/23 17:22 Sodium Chloride 0.9% 1000 Ml Administered 04/18/23 17:23 Dose 1,000 mls @ ud .ROUTE .STK-MED ONE Non-Formulary Medication 1 each 04/18/23 17:43 Pharmacy Dose: 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 1 Each Each IV 04/18/23 17:44 UD STA Lab/Rad Data: Laboratory Result Diagrams 04/18/23 17:18 04/18/23 17:18 Laboratory Results 04/18/23 04/18/23 Range/Units 17:18 17:18 WBC 10.6 H (4.0-10.5) x10^3/uL RBC 5.14 (4.1-5.6) x10^6/uL Hgb 14.8 (12.5-18.0) g/dL Hct 45.6 (42-50) % MCV 88.7 (78-100) fL MCH 28.8 (26-32) pg MCHC 32.5 (32-36) g/dL RDW 14.8 H (11.5-14.0) % Plt Count 348 (150-450) x10^3/uL MPV 9.8 (7.5-11.0) fL Gran % 59.2 (36.0-66.0) % Immature Gran % (Auto) 0.7 H (0.00-0.4) % Nucleat RBC Rel Count 0.0 (0.00-0.1) % Eos # (Auto) 0.47 (0-0.5) x10^3/uL Immature Gran # (Auto) 0.07 H (0.00-0.03) x10^3u/L Absolute Lymphs (auto) 2.88 (1.0-4.6) x10^3/uL Absolute Monos (auto) 0.85 (0.0-1.3) x10^3/uL Absolute Nucleated RBC 0.00 (0.00-0.01) x10^3u/L Lymphocytes % 27.2 (24.0-44.0) % Monocytes % 8.0 (0.0-12.0) % Eosinophils % 4.4 (0.00-5.0) % Basophils % 0.5 (0.0-0.4) % Absolute Granulocytes 6.28 (1.4-6.9) x10^3/uL Basophils # 0.05 (0-0.4) x10^3/uL ESR 37 H (0-15) mm/hr Sodium 136 L (137-145) mmol/L Potassium 4.0 (3.5-5.1) mmol/L Chloride 99 (98-107) mmol/L Carbon Dioxide 26 (22-30) mmol/L Anion Gap 14.3 (5-15) MEQ/L BUN 8 L (9-20) mg/dL Creatinine 0.73 (0.66-1.25) mg/dL Estimated GFR > 60.0 ML/MIN Glucose 126 H (74-106) mg/dL Calcium 9.2 (8.4-10.2) mg/dL Total Bilirubin 0.60 (0.2-1.3) mg/dL AST 32 (17-59) U/L ALT 32 (0-50) U/L Alkaline Phosphatase 103 (38-126) U/L Serum Total Protein 7.1 (6.3-8.2) g/dL Albumin 4.3 (3.5-5.0) g/dL - Progress Progress: unchanged, pain not gone completely Discussed with Dr.: Other (Hospitalist service) Will see patient in: hospital (observation) Counseled pt/family regarding: diagnosis, need for follow-up - Departure Departure Disposition: Home Clinical Impression: Aseptic meningitis, Mollaret's syndrome (benign recurrent meningitis), Intractable pain Condition: Stable Critical Care Time: No Referrals: ANN ALEXIS MD [Primary Care Provider] - Follow up/PCP as directed
[2023-04-18] MEDS ORDERED: Sodium Chloride 0.9% 1000 ML 1,000 ML IV STA (17:04)
[2023-04-18 17:20] LABS: Absolute Neutrophil Ct (ANC) 6.28 x10^3/uL (1.4-6.9); BASOPHIL % 0.5 % (0.0-0.4); Basophil (Absolute #) 0.05 x10^3/uL (0-0.4); Eosinophil % 4.4 % (0.00-5.0); Eosinophil (Absolute #) 0.47 x10^3/uL (0-0.5); Hematocrit 45.6 % (42-50); Hemoglobin 14.8 g/dL (12.5-18.0); IMMATURE GRAN # 0.07 x10^3u/L (0.00-0.03); IMMATURE GRAN % 0.7 % (0.00-0.4); Lymphocyte (Absolute #) 2.88 x10^3/uL (1.0-4.6); Lymphocytes % 27.2 % (24.0-44.0); Mean Cell Volume 88.7 fL (78-100); Mean Corpuscular Hemoglobin 28.8 pg (26-32); Mean Corpuscular Hgb Concent. 32.5 g/dL (32-36); Mean Platelet Volume 9.8 fL (7.5-11.0); Monocyte (Absolute #) 0.85 x10^3/uL (0.0-1.3); Neutrophil % 59.2 % (36.0-66.0); Platelet Count 348 x10^3/uL (150-450); Red Blood Count 5.14 x10^6/uL (4.1-5.6); Red Cell Distribution Width 14.8 % (11.5-14.0); White Blood Count 10.6 x10^3/uL (4.0-10.5)
[2023-04-18] MEDS ORDERED: Hydromorphone 1 mg/ml Injection ONE (17:22)
[2023-04-18] MEDS ORDERED: Sodium Chloride 0.9% 1000 ML 1,000 ML ONE (17:22)
[2023-04-18 17:34] LABS: ALBUMIN 4.3 g/dL (3.5-5.0); ALKALINE PHOSPHATASE 103 U/L (38-126); ANION GAP 14.3 MEQ/L (5-15); BLOOD UREA NITROGEN 8 mg/dL (9-20); CHLORIDE 99 mmol/L (98-107); Calcium 9.2 mg/dL (8.4-10.2); Carbon Dioxide 26 mmol/L (22-30); Creatinine 1 0.73 mg/dL (0.66-1.25); EST GLOMERULAR FILTRATION RATE > 60.0 ML/MIN; Glucose 126 mg/dL (74-106); SGOT/AST 32 U/L (17-59); SGPT/ALT 32 U/L (0-50); SODIUM 136 mmol/L (137-145); Total Protein 7.1 g/dL (6.3-8.2)
[2023-04-18 17:36] LABS: Erythrocyte Sedimentation Rate 37 mm/hr (0-15)
[2023-04-18] MEDS ORDERED: PHARMACY DOSING REQUIRED: DILAUDID PCA IV STA (17:43)
[2023-04-18] MEDS ORDERED: HYDROMORPHONE 30 MG/30 ML-NS PCA IV PRN (19:07)
[2023-04-18] MEDS: Sodium Chloride 0.9% 1000 ML 1,000 ML IV SCH (21:35)
--- NOTE | 2023-04-18 21:47 | PCM.HP ---
History of Present Illness - Chief Complaint Chief Complaint: mollbekahtt menigitis Date: 04/18/23 History of Present Illness: This is a 53-year-old male with Mollaret's meningitis admitted for flare. He has past medical history of diabetes, hypertension, hyperlipidemia, obesity, JASON untreated. He was last admitted late March for treatment of the same. He reports he has severe neck pain that radiates to the front of his head and down his back. This is typical of his symptoms. He denies any new numbness, tingling, weakness, nausea, vomiting, chest pain, shortness of breath. He does have chronic loss of sensation below his knees bilaterally bilaterally. His labs today significant for WBC 10.6, hemoglobin 14.8, platelets 348, sodium 136, creatinine 1.7, glucose 326. - Review of Systems Eyes: No Symptoms Ears, Nose, & Throat: No Symptoms Respiratory: No Cough, No Short Of Breath Cardiac: No Chest Pain, No Edema, No Syncope Abdominal/Gastrointestinal: No Abdominal Pain, No Nausea, No Vomiting, No Diarrhea Genitourinary Symptoms: No Dysuria Musculoskeletal: No Back Pain, No Neck Pain Neurological: Headache, Parasthesia Psychological: No Symptoms Endocrine: No Symptoms Hematologic/Lymphatic: No Symptoms Medications & Allergies Home Medications: Home Medication List Aspirin 81 mg PO DAILY 01/24/14 [History Confirmed 04/18/23] Enalapril Maleate 10 mg [Vasotec 10 MG] 20 mg PO HS 01/24/14 [History Confirmed 04/18/23] Multivitamin [Multi-Vitamin Daily] 1 each PO DAILY 01/24/14 [History Confirmed 04/18/23] Testosterone Cypionate 0.75 ml IM UD 10/09/14 [History Confirmed 04/18/23] Duloxetine HCl [Cymbalta] 60 mg PO BID 04/23/15 [History Confirmed 04/18/23] Metformin HCl 500 mg [Glucophage 500 MG] 1,000 mg PO BIDWM 04/20/20 [History Confirmed 04/18/23] Atorvastatin Calcium [Lipitor] 10 mg PO HS 01/06/22 [History Confirmed 04/18/23] Morphine Sulfate Ir 15 mg [Msir 15 mg] 15 mg PO 0600,1200,1800,0000 02/07/22 [History Confirmed 04/18/23] Mineral Oil 30 ml PO TID 10/30/22 [History Confirmed 04/18/23] Esomeprazole Magnesium [Nexium 24Hr] 40 mg PO HS 12/25/22 [History Confirmed 0 04/18/23] Lactobacillus Combo No.10 [Probiotic] 1 each PO DAILY 03/25/23 [History Confirmed 04/18/23] ARIPiprazole [Abilify Mycite] 5 mg PO DAILY #30 tab 03/27/23 [Rx Confirmed 04/18/23] Methylprednisolone Packet [Medrol Dosepack] 4 mg PO UD #30 packet 03/27/23 [Rx Confirmed 04/18/23] Allergies/Adverse Reactions: Allergies Allergy/AdvReac Type Severity Reaction Status Date / Time pregabalin [From Lyrica] AdvReac Severe Hives Verified 04/18/23 16:00 azithromycin [From Zmax] AdvReac Mild Verified 04/18/23 16:00 - Past Medical History Past Medical History: Yes Neurological History: Paralysis, Seizures ENT History: No Pertinent History Cardiac History: High Cholesterol, Hypertension Respiratory History: Sleep Apnea Endocrine Medical History: Diabetes Type II Musculoskelatal History: No Pertinent History GI Medical History: No Pertinent History History: No Pertinent History Pyscho-Social History: Depression Male Reproductive Disorders: No Pertinent History Comment: Mollaret's, spleen removed - Past Surgical History Past Surgical History: Yes Neuro Surgical History: No Pertinent History Cardiac History: No Pertinent History Respiratory Surgery: No Pertinent History GI Surgical History: Appendectomy, Other Genitourinary Surgical Hx: No Pertinent History Musculskeletal Surgical Hx: No Pertinent History Male Surgical History: Vasectomy Other Surgical History: CONSIDERED PRE-DIABETIC DUE STEROIDS. SPLENECTOMY 1988 - Social History Smoking Status: Never smoker Exposure to second hand smoke: No Alcohol: None Drug Use: none Significant Family History: no pertinent family hx - Physical Exam Vital Signs: Vital Signs - 24 hr Temp Pulse Resp BP Pulse Ox 04/18/23 20:00 97.8 F 91 H 20 141/84 100 04/18/23 19:25 20 100 04/18/23 18:57 97.8 F 91 H 20 141/86 100 04/18/23 18:04 96 04/18/23 15:53 97.6 F 119 H 17 137/88 96 Results - Labs Lab/Micro Results: Lab Results-Last 24 Hours 04/18/23 04/18/23 04/18/23 Range/Units 17:18 17:18 21:16 WBC 10.6 H (4.0-10.5) x10^3/uL RBC 5.14 (4.1-5.6) x10^6/uL Hgb 14.8 (12.5-18.0) g/dL Hct 45.6 (42-50) % MCV 88.7 (78-100) fL MCH 28.8 (26-32) pg MCHC 32.5 (32-36) g/dL RDW 14.8 H (11.5-14.0) % Plt Count 348 (150-450) x10^3/uL MPV 9.8 (7.5-11.0) fL Gran % 59.2 (36.0-66.0) % Immature Gran % (Auto) 0.7 H (0.00-0.4) % Nucleat RBC Rel Count 0.0 (0.00-0.1) % Eos # (Auto) 0.47 (0-0.5) x10^3/uL Immature Gran # (Auto) 0.07 H (0.00-0.03) x10^3u/L Absolute Lymphs (auto) 2.88 (1.0-4.6) x10^3/uL Absolute Monos (auto) 0.85 (0.0-1.3) x10^3/uL Absolute Nucleated RBC 0.00 (0.00-0.01) x10^3u/L Lymphocytes % 27.2 (24.0-44.0) % Monocytes % 8.0 (0.0-12.0) % Eosinophils % 4.4 (0.00-5.0) % Basophils % 0.5 (0.0-0.4) % Absolute Granulocytes 6.28 (1.4-6.9) x10^3/uL Basophils # 0.05 (0-0.4) x10^3/uL ESR 37 H (0-15) mm/hr Sodium 136 L (137-145) mmol/L Potassium 4.0 (3.5-5.1) mmol/L Chloride 99 (98-107) mmol/L Carbon Dioxide 26 (22-30) mmol/L Anion Gap 14.3 (5-15) MEQ/L BUN 8 L (9-20) mg/dL Creatinine 0.73 (0.66-1.25) mg/dL Estimated GFR > 60.0 ML/MIN Glucose 126 H (74-106) mg/dL POC Glucometer 326 H (74 to 106) mg/dL Calcium 9.2 (8.4-10.2) mg/dL Total Bilirubin 0.60 (0.2-1.3) mg/dL AST 32 (17-59) U/L ALT 32 (0-50) U/L Alkaline Phosphatase 103 (38-126) U/L Serum Total Protein 7.1 (6.3-8.2) g/dL Albumin 4.3 (3.5-5.0) g/dL Assessment/Plan (1) Intractable pain Current Visit: Yes Status: Acute Code(s): R52 - PAIN, UNSPECIFIED (2) Aseptic meningitis Current Visit: Yes Status: Chronic Code(s): G03.0 - NONPYOGENIC MENINGITIS (3) 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 Assessment & Plan: PHYSICAL EXAM: Gen: Alert and oriented, NAD Eyes: PERRL, EOMI ENT: MMM CV: S1S2, no murmur appreciated Pulm: CTAB on RA Abd: Soft/nt/nd Extrem: No c/c/e Skin: Dry and intact Neuro: No focal deficits ASSESSMENT #Mollaret meningitis #Diabetes with hyperglycemia #Hyperlipidemia #Hypertension #Untreated JASON #Obesity PLAN -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 Continue home morphine -Acyclovir 500 IV every 8 -Hydrocortisone 100 mg IV every 8 -Add insulin sliding scale to metformin, will check A1c -Continue home antihypertensives Prophylaxis: Lovenox Entire encounter performed via telemedicine Code(s): G03.2 - BENIGN RECURRENT MENINGITIS [MOLLARET] Telemedicine Encounter - Telemedicine Encounter Telemedicine Encounter: The entirety of this encounter was performed via Telemedicine"
[2023-04-18] MEDS ORDERED: Protonix 20MG Tablet PO SCH (23:30)
[2023-04-18] MEDS ORDERED: Zovirax INJ IV ONE (23:47)
[2023-04-18] MEDS ORDERED: Sodium Chloride 0.9% 250 ML 250 ML IV ONE (23:48)
[2023-04-18] MEDS: solu-CORTEF 100MG IV SCH (23:53)
[2023-04-18] MEDS: Zocor 10MG PO SCH (23:54)
[2023-04-18] MEDS: Glucophage 500 MG PO SCH (23:54)
[2023-04-18] MEDS: Vasotec 10 MG PO SCH (23:55)
[2023-04-18] MEDS: Cymbalta 30 MG Capsule PO SCH (23:55)
[2023-04-18] MEDS: HUMULIN R SQ SCH (23:57)
[2023-04-19] MEDS: MSIR 15 MG PO SCH ×5 (00:13→22:59)
[2023-04-19] MEDS: ZOVIRAX IV SCH ×5 (00:13→21:35)
[2023-04-19] MEDS: SODIUM CHLORIDE 0.9% IV SCH ×2 (00:13→05:12)
[2023-04-19] MEDS ORDERED: BENADRYL 25 MG CAPSULE PO ONE (00:15)
[2023-04-19 06:12] LABS: Absolute Neutrophil Ct (ANC) 4.51 x10^3/uL (1.4-6.9); BASOPHIL % 0.7 % (0.0-0.4); Basophil (Absolute #) 0.05 x10^3/uL (0-0.4); Eosinophil % 1.4 % (0.00-5.0); Hematocrit 41.4 % (42-50); Hemoglobin 13.3 g/dL (12.5-18.0); IMMATURE GRAN # 0.05 x10^3u/L (0.00-0.03); IMMATURE GRAN % 0.7 % (0.00-0.4); Mean Cell Volume 89.8 fL (78-100); Mean Corpuscular Hemoglobin 28.9 pg (26-32); Mean Corpuscular Hgb Concent. 32.1 g/dL (32-36); Mean Platelet Volume 9.8 fL (7.5-11.0); Monocyte (Absolute #) 0.43 x10^3/uL (0.0-1.3); Neutrophil % 63.2 % (36.0-66.0); Platelet Count 341 x10^3/uL (150-450); Red Blood Count 4.61 x10^6/uL (4.1-5.6); Red Cell Distribution Width 15.3 % (11.5-14.0); White Blood Count 7.1 x10^3/uL (4.0-10.5)
[2023-04-19 06:29] LABS: MAGNESIUM 1.8 mg/dL (1.6-2.3); PHOSPHOROUS 3.9 mg/dL (2.5-4.5)
[2023-04-19 06:34] LABS: ALBUMIN 3.8 g/dL (3.5-5.0); ALKALINE PHOSPHATASE 90 U/L (38-126); ANION GAP 14.9 MEQ/L (5-15); BLOOD UREA NITROGEN 11 mg/dL (9-20); CHLORIDE 101 mmol/L (98-107); Calcium 8.5 mg/dL (8.4-10.2); Carbon Dioxide 25 mmol/L (22-30); Creatinine 1 0.91 mg/dL (0.66-1.25); EST GLOMERULAR FILTRATION RATE > 60.0 ML/MIN; Glucose 155 mg/dL (74-106); Potassium 4.5 mmol/L (3.5-5.1); SGOT/AST 31 U/L (17-59); SGPT/ALT 29 U/L (0-50); SODIUM 136 mmol/L (137-145); Total Protein 6.6 g/dL (6.3-8.2)
[2023-04-19] MEDS: solu-CORTEF 100MG IV SCH ×3 (06:45→21:36)
[2023-04-19] MEDS: HUMULIN R SQ SCH ×4 (08:16→21:35)
[2023-04-19] MEDS: DEXTROSE IV SCH ×3 (08:19→21:35)
[2023-04-19] MEDS: WATER IV SCH ×3 (08:19→21:35)
[2023-04-19] MEDS: Glucophage 500 MG PO SCH ×2 (08:19→18:04)
[2023-04-19] MEDS: HYDROMORPHONE 30 MG/30 ML-NS PCA IV PRN (09:09)
[2023-04-19] MEDS: Sodium Chloride 0.9% 1000 ML 1,000 ML IV SCH ×2 (09:09→23:50)
[2023-04-19] MEDS ORDERED: MEDICATION INTERVENTION MC SCH (09:30)
[2023-04-19] MEDS ORDERED: TESTOSTERONE CYPIONATE 100 MG/ML IM SCH (09:30)
[2023-04-19] MEDS ORDERED: Vasotec 10 MG PO SCH (10:00)
[2023-04-19] MEDS ORDERED: NON-FORMULARY ITEM (Multivitamin [Multi-Vitamin Daily] 1 EACH Tablet) PO SCH (10:00)
[2023-04-19] MEDS: MINERAL OIL PO SCH ×3 (10:00→21:36)
[2023-04-19] MEDS: Acidophilus TABLET PO SCH (10:00)
[2023-04-19] MEDS: THERAGRAN MULTIVITAMIN PO SCH (10:00)
[2023-04-19] MEDS ORDERED: NON-FORMULARY ITEM (Aspirin [Aspirin] 81 MG Tablet) PO SCH (10:00)
[2023-04-19] MEDS: ECOTRIN 81 MG PO SCH (10:00)
[2023-04-19] MEDS ORDERED: LACTOBACILLUS COMBO NO 10 PO SCH (10:00)
[2023-04-19] MEDS: Cymbalta 30 MG Capsule PO SCH ×2 (10:00→21:36)
--- NOTE | 2023-04-19 12:04 | PCM.NOTE ---
Date and Time: 04/19/23 115 Subjective Assessment: Headache is persistent but responding to CODING EDUCATOR pump management. The patient was seen and examined via telemedicine. The entirety of this encounter was performed via telemedicine. The patient consented to this telemedicine encounter. - Review of Systems Constitutional: No Symptoms Eyes: No Symptoms Ears, Nose, & Throat: No Symptoms Respiratory: No Symptoms Cardiac: No Symptoms Abdominal/Gastrointestinal: No Symptoms Genitourinary Symptoms: No Symptoms Musculoskeletal: No Symptoms Skin: No Symptoms Neurological: Headache Psychological: No Symptoms Endocrine: No Symptoms Hematologic/Lymphatic: No Symptoms Immunological/Allergic: No Symptoms Objective Exam General Appearance: no apparent distress Neurologic Exam: alert, oriented x 3, cooperative, scientific helper II-XII nml as tested, normal mood/affect, nml cerebellar function Skin Exam: normal color Eye Exam: PERRL, EOMI Ears, Nose, Throat Exam: normal ENT inspection Neck Exam: normal inspection, non-tender, full range of motion Respiratory Exam: normal breath sounds, lungs clear Cardiovascular Exam: regular rate/rhythm, normal heart sounds Gastrointestinal/Abdomen Exam: soft, normal bowel sounds Extremity Exam: normal inspection, normal range of motion Back Exam: normal range of motion OBJECTIVE DATA Vital Signs: Vital Signs - 24 hr Temp Pulse Resp BP Pulse Ox 04/19/23 11:58 96.8 F 101 H 16 131/66 94 L 04/19/23 07:16 94 L 04/19/23 07:06 96.7 F 88 16 117/69 94 L 04/19/23 06:57 19 94 L 04/19/23 04:00 97.8 F 106 H 19 111/66 94 L 04/19/23 03:25 19 94 L 04/18/23 23:36 97.6 F 92 H 20 149/82 99 04/18/23 23:25 19 94 L 04/18/23 20:00 97.8 F 91 H 20 141/84 100 04/18/23 19:25 20 100 04/18/23 18:57 97.8 F 91 H 20 141/86 100 04/18/23 18:04 96 04/18/23 15:53 97.6 F 119 H 17 137/88 96 Pain Assessment - Last Documented Pain Intensity 8 Pain Scale Used 0-10 Pain Scale Intake and Output: Intake & Output 04/16/23 04/17/23 04/18/23 04/19/23 11:59 11:59 11:59 11:59 Intake Total 3442 Output Total 1600 Balance 1842 Weight 110 kg Lab Results: Lab Results-Last 24 Hours 04/18/23 04/18/23 04/18/23 Range/Units 17:18 17:18 21:16 WBC 10.6 H (4.0-10.5) x10^3/uL RBC 5.14 (4.1-5.6) x10^6/uL Hgb 14.8 (12.5-18.0) g/dL Hct 45.6 (42-50) % MCV 88.7 (78-100) fL MCH 28.8 (26-32) pg MCHC 32.5 (32-36) g/dL RDW 14.8 H (11.5-14.0) % Plt Count 348 (150-450) x10^3/uL MPV 9.8 (7.5-11.0) fL Gran % 59.2 (36.0-66.0) % Immature Gran % (Auto) 0.7 H (0.00-0.4) % Nucleat RBC Rel Count 0.0 (0.00-0.1) % Eos # (Auto) 0.47 (0-0.5) x10^3/uL Immature Gran # (Auto) 0.07 H (0.00-0.03) x10^3u/L Absolute Lymphs (auto) 2.88 (1.0-4.6) x10^3/uL Absolute Monos (auto) 0.85 (0.0-1.3) x10^3/uL Absolute Nucleated RBC 0.00 (0.00-0.01) x10^3u/L Lymphocytes % 27.2 (24.0-44.0) % Monocytes % 8.0 (0.0-12.0) % Eosinophils % 4.4 (0.00-5.0) % Basophils % 0.5 (0.0-0.4) % Absolute Granulocytes 6.28 (1.4-6.9) x10^3/uL Basophils # 0.05 (0-0.4) x10^3/uL ESR 37 H (0-15) mm/hr Sodium 136 L (137-145) mmol/L Potassium 4.0 (3.5-5.1) mmol/L Chloride 99 (98-107) mmol/L Carbon Dioxide 26 (22-30) mmol/L Anion Gap 14.3 (5-15) MEQ/L BUN 8 L (9-20) mg/dL Creatinine 0.73 (0.66-1.25) mg/dL Estimated GFR > 60.0 ML/MIN Glucose 126 H (74-106) mg/dL POC Glucometer 326 H (74 to 106) mg/dL Hemoglobin A1c (4.5-6.0) % Calcium 9.2 (8.4-10.2) mg/dL Phosphorus (2.5-4.5) mg/dL Magnesium (1.6-2.3) mg/dL Total Bilirubin 0.60 (0.2-1.3) mg/dL AST 32 (17-59) U/L ALT 32 (0-50) U/L Alkaline Phosphatase 103 (38-126) U/L Serum Total Protein 7.1 (6.3-8.2) g/dL Albumin 4.3 (3.5-5.0) g/dL 04/19/23 04/19/23 04/19/23 Range/Units 05:49 05:49 05:49 WBC 7.1 (4.0-10.5) x10^3/uL RBC 4.61 (4.1-5.6) x10^6/uL Hgb 13.3 (12.5-18.0) g/dL Hct 41.4 L (42-50) % MCV 89.8 (78-100) fL MCH 28.9 (26-32) pg MCHC 32.1 (32-36) g/dL RDW 15.3 H (11.5-14.0) % Plt Count 341 (150-450) x10^3/uL MPV 9.8 (7.5-11.0) fL Gran % 63.2 (36.0-66.0) % Immature Gran % (Auto) 0.7 H (0.00-0.4) % Nucleat RBC Rel Count 0.0 (0.00-0.1) % Eos # (Auto) 0.10 (0-0.5) x10^3/uL Immature Gran # (Auto) 0.05 H (0.00-0.03) x10^3u/L Absolute Lymphs (auto) 2.00 (1.0-4.6) x10^3/uL Absolute Monos (auto) 0.43 (0.0-1.3) x10^3/uL Absolute Nucleated RBC 0.00 (0.00-0.01) x10^3u/L Lymphocytes % 28.0 (24.0-44.0) % Monocytes % 6.0 (0.0-12.0) % Eosinophils % 1.4 (0.00-5.0) % Basophils % 0.7 (0.0-0.4) % Absolute Granulocytes 4.51 (1.4-6.9) x10^3/uL Basophils # 0.05 (0-0.4) x10^3/uL ESR (0-15) mm/hr Sodium 136 L (137-145) mmol/L Potassium 4.5 (3.5-5.1) mmol/L Chloride 101 (98-107) mmol/L Carbon Dioxide 25 (22-30) mmol/L Anion Gap 14.9 (5-15) MEQ/L BUN 11 (9-20) mg/dL Creatinine 0.91 (0.66-1.25) mg/dL Estimated GFR > 60.0 ML/MIN Glucose 155 H (74-106) mg/dL POC Glucometer (74 to 106) mg/dL Hemoglobin A1c (4.5-6.0) % Calcium 8.5 (8.4-10.2) mg/dL Phosphorus 3.9 (2.5-4.5) mg/dL Magnesium 1.8 (1.6-2.3) mg/dL Total Bilirubin 0.40 (0.2-1.3) mg/dL AST 31 (17-59) U/L ALT 29 (0-50) U/L Alkaline Phosphatase 90 (38-126) U/L Serum Total Protein 6.6 (6.3-8.2) g/dL Albumin 3.8 (3.5-5.0) g/dL 04/19/23 04/19/23 04/19/23 Range/Units 05:49 06:45 11:51 WBC (4.0-10.5) x10^3/uL RBC (4.1-5.6) x10^6/uL Hgb (12.5-18.0) g/dL Hct (42-50) % MCV (78-100) fL MCH (26-32) pg MCHC (32-36) g/dL RDW (11.5-14.0) % Plt Count (150-450) x10^3/uL MPV (7.5-11.0) fL Gran % (36.0-66.0) % Immature Gran % (Auto) (0.00-0.4) % Nucleat RBC Rel Count (0.00-0.1) % Eos # (Auto) (0-0.5) x10^3/uL Immature Gran # (Auto) (0.00-0.03) x10^3u/L Absolute Lymphs (auto) (1.0-4.6) x10^3/uL Absolute Monos (auto) (0.0-1.3) x10^3/uL Absolute Nucleated RBC (0.00-0.01) x10^3u/L Lymphocytes % (24.0-44.0) % Monocytes % (0.0-12.0) % Eosinophils % (0.00-5.0) % Basophils % (0.0-0.4) % Absolute Granulocytes (1.4-6.9) x10^3/uL Basophils # (0-0.4) x10^3/uL ESR (0-15) mm/hr Sodium (137-145) mmol/L Potassium (3.5-5.1) mmol/L Chloride (98-107) mmol/L Carbon Dioxide (22-30) mmol/L Anion Gap (5-15) MEQ/L BUN (9-20) mg/dL Creatinine (0.66-1.25) mg/dL Estimated GFR ML/MIN Glucose (74-106) mg/dL POC Glucometer 139 H 268 H (74 to 106) mg/dL Hemoglobin A1c 7.61 H (4.5-6.0) % Calcium (8.4-10.2) mg/dL Phosphorus (2.5-4.5) mg/dL Magnesium (1.6-2.3) mg/dL Total Bilirubin (0.2-1.3) mg/dL AST (17-59) U/L ALT (0-50) U/L Alkaline Phosphatase (38-126) U/L Serum Total Protein (6.3-8.2) g/dL Albumin (3.5-5.0) g/dL Assessment/Plan (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 Assessment & Plan: Headache management with CODING EDUCATOR pump. Monitor clinical response. Code(s): G03.2 - BENIGN RECURRENT MENINGITIS [MOLLARET] (2) Diabetes mellitus Current Visit: No Status: Chronic Qualifiers: Assessment & Plan: Follow sugars. Code(s): E11.9 - TYPE 2 DIABETES MELLITUS WITHOUT COMPLICATIONS (3) Hypertension Current Visit: No Status: Chronic Onset Date: ~11/01/18 Assessment & Plan: Monitor BP Code(s): I10 - ESSENTIAL (PRIMARY) HYPERTENSION
[2023-04-19] MEDS: Sterile H2O 10 ml IJ SCH ×2 (14:20→21:37)
[2023-04-19] MEDS ORDERED: Zovirax INJ IV ONE (21:25)
[2023-04-19] MEDS: Vasotec 10 MG PO SCH (21:37)
[2023-04-19] MEDS: Protonix 40MG Tablet PO SCH (21:37)
[2023-04-19] MEDS: Zocor 10MG PO SCH (21:38)
[2023-04-19] MEDS: BENADRYL 50 MG/ML IV SCH (22:59)
[2023-04-20] MEDS: HYDROMORPHONE 30 MG/30 ML-NS PCA IV PRN ×2 (01:04→17:07)
[2023-04-20] MEDS: Sterile H2O 10 ml IJ SCH ×3 (05:15→21:17)
[2023-04-20] MEDS: solu-CORTEF 100MG IV SCH ×3 (05:15→21:17)
[2023-04-20] MEDS: ZOVIRAX IV SCH ×3 (05:16→21:17)
[2023-04-20] MEDS: WATER IV SCH ×3 (05:16→21:17)
[2023-04-20] MEDS: DEXTROSE IV SCH ×3 (05:16→21:17)
[2023-04-20] MEDS: MSIR 15 MG PO SCH ×4 (05:19→23:02)
[2023-04-20] MEDS ORDERED: NARCAN 2 MG/2 ML IV PRN (07:50)
[2023-04-20] MEDS: Glucophage 500 MG PO SCH ×2 (08:21→17:28)
[2023-04-20] MEDS: HUMULIN R SQ SCH ×4 (08:22→22:03)
[2023-04-20] MEDS: ECOTRIN 81 MG PO SCH (10:17)
[2023-04-20] MEDS: Cymbalta 30 MG Capsule PO SCH ×2 (10:17→21:17)
[2023-04-20] MEDS: Acidophilus TABLET PO SCH (10:17)
[2023-04-20] MEDS: MINERAL OIL PO SCH ×3 (10:17→21:17)
[2023-04-20] MEDS: THERAGRAN MULTIVITAMIN PO SCH (10:17)
[2023-04-20] MEDS: Sodium Chloride 0.9% 1000 ML 1,000 ML IV SCH (11:15)
[2023-04-20] MEDS: Protonix 40MG Tablet PO SCH (21:17)
[2023-04-20] MEDS: Zocor 10MG PO SCH (21:17)
[2023-04-20] MEDS: Vasotec 10 MG PO SCH (21:17)
[2023-04-20] MEDS: BENADRYL 50 MG/ML IV SCH (23:02)
--- NOTE | 2023-04-21 00:01 | PCM.NOTE ---
Date and Time: 04/20/23 0097 Subjective Assessment: No acute events overnight. [email or web address] to have headache, with his chronic numbness below knees. 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 Denies vision changes or lightheadedness. Entirety of encounter took place via telemedicine, to which patient consented. - Review of Systems All Other Systems: Reviewed and Negative Objective Exam General Appearance: no apparent distress, alert Neurologic Exam: alert, oriented x 3, cooperative, normal mood/affect, sensation nml, No motor deficits Skin Exam: normal color, warm, dry Respiratory Exam: normal breath sounds, lungs clear, No respiratory distress Cardiovascular Exam: regular rate/rhythm, normal heart sounds Gastrointestinal/Abdomen Exam: soft, No tenderness, No distention Extremity Exam: normal inspection, normal range of motion Back Exam: normal inspection, normal range of motion OBJECTIVE DATA Vital Signs: Vital Signs - 24 hr Temp Pulse Resp BP Pulse Ox 04/20/23 23:18 97.5 F 90 20 130/72 98 04/20/23 20:00 16 98 04/20/23 19:54 97.4 F 89 16 124/68 96 04/20/23 19:39 97 04/20/23 17:09 16 97 04/20/23 17:07 16 97 04/20/23 15:59 97.6 F 90 16 130/73 97 04/20/23 13:09 16 97 04/20/23 11:56 97.9 F 102 H 16 132/77 97 04/20/23 09:09 16 97 04/20/23 09:04 16 97 04/20/23 07:35 97.6 F 84 16 115/59 96 04/20/23 07:03 96 04/20/23 05:09 20 96 04/20/23 05:04 19 95 04/20/23 04:00 97.5 F 91 H 20 143/84 96 04/20/23 01:09 18 96 04/20/23 01:04 18 96 04/20/23 00:00 97.4 F 107 H 18 145/77 96 Pain Assessment - Last Documented Pain Intensity 8 Pain Scale Used 0-10 Pain Scale Intake and Output: Intake & Output 04/18/23 04/19/23 04/20/23 04/21/23 11:59 11:59 11:59 11:59 Intake Total 3442 5332 4132 Output Total 1600 3450 2150 Balance 1842 1882 1982 Weight 110 kg Lab Results: Lab Results-Last 24 Hours 04/20/23 04/20/23 04/20/23 Range/Units 07:23 11:18 16:24 POC Glucometer 200 H 304 H 179 H (74 to 106) mg/dL 04/20/23 Range/Units 21:45 POC Glucometer 285 H (74 to 106) mg/dL Assessment/Plan (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 Follows with pain doc as outpatient. - continue Dilaudid [employer] MARK[employer] - continue acyclovir 1000 q8h - continue Hydrocortisone 100 q8h - continue Cymbalta 60 BID for paresthesias Code(s): G03.2 - BENIGN RECURRENT MENINGITIS [MOLLARET] (2) Type 2 diabetes mellitus Current Visit: No Status: Chronic Qualifiers: Assessment & Plan: Worsened during acute hospitalizations when on steroids for his aseptic meningitis. Elevated again today, although levels starting to improve. - continue high-dose sliding scale insulin - continue metformin - change to CHO-controlled diet (3) Hypertension Current Visit: No Status: Chronic Onset Date: ~11/01/18 Assessment & Plan: BP controlled. - continue enalapril Code(s): I10 - ESSENTIAL (PRIMARY) HYPERTENSION
[2023-04-21] MEDS: Sodium Chloride 0.9% 1000 ML 1,000 ML IV SCH ×3 (00:03→23:09)
[2023-04-21] MEDS: ZOVIRAX IV SCH ×3 (06:03→23:09)
[2023-04-21] MEDS: WATER IV SCH ×3 (06:03→23:09)
[2023-04-21] MEDS: DEXTROSE IV SCH ×3 (06:03→23:09)
[2023-04-21] MEDS: Sterile H2O 10 ml IJ SCH ×3 (06:04→23:13)
[2023-04-21] MEDS: solu-CORTEF 100MG IV SCH ×3 (06:04→23:13)
[2023-04-21] MEDS: MSIR 15 MG PO SCH ×4 (06:04→23:08)
[2023-04-21] MEDS: HUMULIN R SQ SCH ×4 (07:54→23:22)
[2023-04-21] MEDS: HYDROMORPHONE 30 MG/30 ML-NS PCA IV PRN ×2 (08:37→23:57)
[2023-04-21] MEDS: Glucophage 500 MG PO SCH ×2 (08:43→17:29)
[2023-04-21] MEDS: ECOTRIN 81 MG PO SCH (08:43)
[2023-04-21] MEDS: Acidophilus TABLET PO SCH (08:43)
[2023-04-21] MEDS: Cymbalta 30 MG Capsule PO SCH ×2 (08:43→23:12)
[2023-04-21] MEDS: THERAGRAN MULTIVITAMIN PO SCH (08:43)
[2023-04-21] MEDS: MINERAL OIL PO SCH ×3 (08:44→23:23)
--- NOTE | 2023-04-21 12:03 | PCM.NOTE ---
Date and Time: 04/21/23 1155 Subjective Assessment: No acute events overnight. Headache unchanged, requiring his dilaudid VENEER GLUER. Denies nausea or new neuro symptoms, but still has bilateral paresthesias below the knees. - Review of Systems All Other Systems: Reviewed and Negative Objective Exam General Appearance: no apparent distress, alert Neurologic Exam: oriented x 3, cooperative, normal mood/affect, No motor deficits Respiratory Exam: normal breath sounds, lungs clear, No accessory muscle use Cardiovascular Exam: regular rate/rhythm, No murmur, No edema Gastrointestinal/Abdomen Exam: soft, No tenderness OBJECTIVE DATA Vital Signs: Vital Signs - 24 hr Temp Pulse Resp BP Pulse Ox 04/21/23 11:45 97.5 F 84 18 141/77 95 04/21/23 08:00 97.5 F 84 18 135/86 98 04/21/23 07:50 95 04/21/23 06:18 16 95 04/21/23 04:00 18 97 04/21/23 02:58 97.1 F 85 18 125/80 98 04/21/23 00:00 16 99 04/20/23 23:18 97.5 F 90 20 130/72 98 04/20/23 20:00 16 98 04/20/23 19:54 97.4 F 89 16 124/68 96 04/20/23 19:39 97 04/20/23 17:09 16 97 04/20/23 17:07 16 97 04/20/23 15:59 97.6 F 90 16 130/73 97 04/20/23 13:09 16 97 04/20/23 11:56 97.9 F 102 H 16 132/77 97 Pain Assessment - Last Documented Pain Intensity 8 Pain Scale Used 0-10 Pain Scale Intake and Output: Intake & Output 04/18/23 04/19/23 04/20/23 04/21/23 11:59 11:59 11:59 11:59 Intake Total 3442 5332 7676 Output Total 1600 3450 4350 Balance 1842 1882 3326 Weight 110 kg Lab Results: Lab Results-Last 24 Hours 04/20/23 04/20/23 04/21/23 Range/Units 16:24 21:45 06:45 POC Glucometer 179 H 285 H 142 H (74 to 106) mg/dL 04/21/23 Range/Units 11:01 POC Glucometer 307 H (74 to 106) mg/dL Multi-Disciplinary Progress Notes: Multi-Disciplinary Progress Notes 04/21/23 09:55 Case Management Note by Kasie Garcia S/W PATIENT- HE CONTINUES TO DENY ANY NEW NEEDS AT TIME OF DC. HE PLANS TO DC HOME TO HIS PLF,. HE PLANS TO TALK ABOUT HIS PROGRESSING ILLNESS WITH DR. 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 ## Mollaret's syndrome - recurrent pain, fairly controlled today but requiring frequent use of his Dilaudid VENEER GLUER. No neurologic symptoms other than paresthesias to bilateral feet. Follows with pain doc as outpatient. - continue Dilaudid VENEER GLUER - continue acyclovir 1000 q8h - continue Hydrocortisone 100 q8h - continue Cymbalta 60 BID for paresthesias ## DM2 - HbA1c 7.6. Worsened during acute hospitalizations when on steroids for his aseptic meningitis. Elevated again today; this morning was down to 148, but mainly running in 300s - continue high-dose sliding scale insulin - continue metformin 1000 BID - add lantus 10 units qHS ## Hypertension. BP controlled. - continue enalapril 20 qHS Code Status: Full code Prophylaxis: start Lovenox Entirety of encounter took place via telemedicine, to which patient consented. Code(s): G03.2 - BENIGN RECURRENT MENINGITIS [MOLLARET] (2) Type 2 diabetes mellitus Current Visit: No Status: Chronic Qualifiers: (3) Hypertension Current Visit: No Status: Chronic Onset Date: ~11/01/18 Code(s): I10 - ESSENTIAL (PRIMARY) HYPERTENSION
[2023-04-21] MEDS: ENOXAPARIN SODIUM SQ SCH (14:07)
[2023-04-21] MEDS: BENADRYL 50 MG/ML IV SCH (23:08)
[2023-04-21] MEDS: Protonix 40MG Tablet PO SCH (23:10)
[2023-04-21] MEDS: Zocor 10MG PO SCH (23:11)
[2023-04-21] MEDS: Vasotec 10 MG PO SCH (23:12)
[2023-04-21] MEDS: Lantus Insulin SQ SCH (23:21)
[2023-04-22] MEDS: MSIR 15 MG PO SCH ×4 (05:14→22:58)
[2023-04-22] MEDS: solu-CORTEF 100MG IV SCH ×3 (05:14→22:59)
[2023-04-22] MEDS: DEXTROSE IV SCH ×3 (05:14→22:57)
[2023-04-22] MEDS: ZOVIRAX IV SCH ×3 (05:14→22:57)
[2023-04-22] MEDS: WATER IV SCH ×3 (05:14→22:57)
[2023-04-22] MEDS: Sterile H2O 10 ml IJ SCH ×3 (05:15→23:01)
[2023-04-22 05:21] LABS: Hematocrit 39.6 % (42-50); Hemoglobin 12.7 g/dL (12.5-18.0); Mean Cell Volume 89.4 fL (78-100); Mean Corpuscular Hemoglobin 28.7 pg (26-32); Mean Corpuscular Hgb Concent. 32.1 g/dL (32-36); Platelet Count 388 x10^3/uL (150-450); Red Blood Count 4.43 x10^6/uL (4.1-5.6); Red Cell Distribution Width 15.5 % (11.5-14.0); White Blood Count 9.6 x10^3/uL (4.0-10.5)
[2023-04-22 05:38] LABS: ANION GAP 11.7 MEQ/L (5-15); BLOOD UREA NITROGEN 9 mg/dL (9-20); CHLORIDE 99 mmol/L (98-107); Calcium 8.3 mg/dL (8.4-10.2); Carbon Dioxide 32 mmol/L (22-30); Creatinine 1 0.75 mg/dL (0.66-1.25); EST GLOMERULAR FILTRATION RATE > 60.0 ML/MIN; Glucose 205 mg/dL (74-106); Potassium 4.2 mmol/L (3.5-5.1); SODIUM 138 mmol/L (137-145)
[2023-04-22] MEDS: THERAGRAN MULTIVITAMIN PO SCH (08:15)
[2023-04-22] MEDS: Cymbalta 30 MG Capsule PO SCH ×2 (08:16→22:58)
[2023-04-22] MEDS: ECOTRIN 81 MG PO SCH (08:16)
[2023-04-22] MEDS: Glucophage 500 MG PO SCH ×2 (08:16→18:17)
[2023-04-22] MEDS: HUMULIN R SQ SCH ×4 (08:17→22:59)
[2023-04-22] MEDS: MINERAL OIL PO SCH ×3 (08:17→22:59)
[2023-04-22] MEDS: Acidophilus TABLET PO SCH (08:20)
[2023-04-22] MEDS: ENOXAPARIN SODIUM SQ SCH (08:20)
[2023-04-22] MEDS: Sodium Chloride 0.9% 1000 ML 1,000 ML IV SCH ×2 (12:34→21:44)
--- NOTE | 2023-04-22 13:57 | PCM.DS ---
Discharge Summary Date of Admission: 04/19/23 11:59 Admitting Physician: ADAM TERRY MD Primary Care Provider: ANN ALEXIS Allergies Allergies pregabalin [From Lyrica] Adverse Reaction (Severe, Verified 04/18/23 16:00) Hives SOB hives azithromycin [From Zmax] Adverse Reaction (Mild, Verified 04/18/23 16:00) vomiting Hospital Summary - Vitals & Intake/Output Vital Signs: Vital Signs Temperature 97.5 F 04/22/23 11:52 Pulse Rate 104 H 04/22/23 11:52 Respiratory Rate 18 04/22/23 11:52 Blood Pressure 132/80 04/22/23 11:52 O2 Sat by Pulse Oximetry 97 04/22/23 11:52 Intake & Output: Intake & Output 04/20/23 04/21/23 04/22/23 04/23/23 11:59 11:59 11:59 11:59 Intake Total 5332 7676 4304 Output Total 3450 4350 4800 Balance 1882 3326 -496 - Lab Result Diagrams: 04/22/23 04:53 04/22/23 04:53 Lab Results-Last 24 Hrs: Lab Results-Last 24 Hours 04/21/23 04/21/23 04/22/23 Range/Units 15:53 22:03 04:53 WBC 9.6 (4.0-10.5) x10^3/uL RBC 4.43 (4.1-5.6) x10^6/uL Hgb 12.7 (12.5-18.0) g/dL Hct 39.6 L (42-50) % MCV 89.4 (78-100) fL MCH 28.7 (26-32) pg MCHC 32.1 (32-36) g/dL RDW 15.5 H (11.5-14.0) % Plt Count 388 (150-450) x10^3/uL MPV 10.0 (7.5-11.0) fL Sodium (137-145) mmol/L Potassium (3.5-5.1) mmol/L Chloride (98-107) mmol/L Carbon Dioxide (22-30) mmol/L Anion Gap (5-15) MEQ/L BUN (9-20) mg/dL Creatinine (0.66-1.25) mg/dL Estimated GFR ML/MIN Glucose (74-106) mg/dL POC Glucometer 284 H 135 H (74 to 106) mg/dL Calcium (8.4-10.2) mg/dL 04/22/23 04/22/23 04/22/23 Range/Units 04:53 06:44 11:34 WBC (4.0-10.5) x10^3/uL RBC (4.1-5.6) x10^6/uL Hgb (12.5-18.0) g/dL Hct (42-50) % MCV (78-100) fL MCH (26-32) pg MCHC (32-36) g/dL RDW (11.5-14.0) % Plt Count (150-450) x10^3/uL MPV (7.5-11.0) fL Sodium 138 (137-145) mmol/L Potassium 4.2 (3.5-5.1) mmol/L Chloride 99 (98-107) mmol/L Carbon Dioxide 32 H (22-30) mmol/L Anion Gap 11.7 (5-15) MEQ/L BUN 9 (9-20) mg/dL Creatinine 0.75 (0.66-1.25) mg/dL Estimated GFR > 60.0 ML/MIN Glucose 205 H (74-106) mg/dL POC Glucometer 196 H 242 H (74 to 106) mg/dL Calcium 8.3 L (8.4-10.2) mg/dL Micro Results-Entire Visit: Accuchecks Date 04/22/23 Date 04/22/23 Date 04/21/23 Time 11:52 Time 07:19 Time 16:27 Final Diagnosis/Problem List - Final Discharge Diagnosis/Problem (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 Code(s): G03.2 - BENIGN RECURRENT MENINGITIS [MOLLARET] (2) Type 2 diabetes mellitus Current Visit: No Status: Chronic (3) Hypertension Current Visit: No Status: Chronic Onset Date: ~11/01/18 Code(s): I10 - ESSENTIAL (PRIMARY) HYPERTENSION - Discharge Disposition: Home, Self-Care Condition: Stable Prescriptions: No Action Enalapril Maleate 10 mg [Vasotec 10 MG] 20 mg PO HS Multivitamin [Multi-Vitamin Daily] 1 each PO DAILY Aspirin 81 mg PO DAILY Testosterone Cypionate 0.75 ml IM UD Duloxetine HCl [Cymbalta] 60 mg PO BID Metformin HCl 500 mg [Glucophage 500 MG] 1,000 mg PO BIDWM Atorvastatin Calcium [Lipitor] 10 mg PO HS Morphine Sulfate Ir 15 mg [Msir 15 mg] 15 mg PO 0600,1200,1800,0000 Mineral Oil 30 ml PO TID Esomeprazole Magnesium [Nexium 24Hr] 40 mg PO HS Lactobacillus Combo No.10 [Probiotic] 1 each PO DAILY ARIPiprazole [Abilify Mycite] 5 mg PO DAILY #30 tab Prednisone 10 mg [Deltasone 10 mg] 15 mg PO DAILY Follow up with: ANN ALEXIS MD [Primary Care Provider] -
--- NOTE | 2023-04-22 16:36 | PCM.NOTE ---
Date and Time: 04/22/23 1633 Subjective Assessment: No acute events overnight. He feels like his headache is starting to turn the corner, although he still has too much pain to be able to sleep at night. His glucose levels have been improved, down to 135 this morning, and nothing higher than 280 for the last 24 hours. - Review of Systems Neurological: Headache All Other Systems: Reviewed and Negative Objective Exam General Appearance: no apparent distress Neurologic Exam: alert, oriented x 3, normal mood/affect Skin Exam: No rash Respiratory Exam: normal breath sounds, No lungs clear, No respiratory distress Cardiovascular Exam: regular rate/rhythm, normal heart sounds, No murmur, No gallop Gastrointestinal/Abdomen Exam: soft, No tenderness, No distention OBJECTIVE DATA Vital Signs: Vital Signs - 24 hr Temp Pulse Resp BP Pulse Ox 04/22/23 16:00 97.5 F 104 H 18 132/80 97 04/22/23 11:52 97.5 F 104 H 18 132/80 97 04/22/23 07:19 97.6 F 82 18 127/63 96 04/22/23 07:16 18 96 04/22/23 05:15 98 04/22/23 04:05 97.6 F 56 L 18 159/92 96 04/22/23 04:00 97.5 F 78 18 139/86 95 04/21/23 23:57 18 95 04/21/23 23:53 97.5 F 78 20 139/86 97 04/21/23 20:00 98.0 F 106 H 18 140/82 96 04/21/23 19:16 94 L Pain Assessment - Last Documented Pain Intensity 8 Pain Scale Used 0-10 Pain Scale Intake and Output: Intake & Output 04/20/23 04/21/23 04/22/23 04/23/23 11:59 11:59 11:59 11:59 Intake Total 5332 7676 4304 Output Total 3450 4350 4800 Balance 1882 3326 -496 Weight 110 kg Lab Results: Lab Results-Last 24 Hours 04/21/23 04/22/23 04/22/23 Range/Units 22:03 04:53 04:53 WBC 9.6 (4.0-10.5) x10^3/uL RBC 4.43 (4.1-5.6) x10^6/uL Hgb 12.7 (12.5-18.0) g/dL Hct 39.6 L (42-50) % MCV 89.4 (78-100) fL MCH 28.7 (26-32) pg MCHC 32.1 (32-36) g/dL RDW 15.5 H (11.5-14.0) % Plt Count 388 (150-450) x10^3/uL MPV 10.0 (7.5-11.0) fL Sodium 138 (137-145) mmol/L Potassium 4.2 (3.5-5.1) mmol/L Chloride 99 (98-107) mmol/L Carbon Dioxide 32 H (22-30) mmol/L Anion Gap 11.7 (5-15) MEQ/L BUN 9 (9-20) mg/dL Creatinine 0.75 (0.66-1.25) mg/dL Estimated GFR > 60.0 ML/MIN Glucose 205 H (74-106) mg/dL POC Glucometer 135 H (74 to 106) mg/dL Calcium 8.3 L (8.4-10.2) mg/dL 04/22/23 04/22/23 04/22/23 Range/Units 06:44 11:34 15:57 WBC (4.0-10.5) x10^3/uL RBC (4.1-5.6) x10^6/uL Hgb (12.5-18.0) g/dL Hct (42-50) % MCV (78-100) fL MCH (26-32) pg MCHC (32-36) g/dL RDW (11.5-14.0) % Plt Count (150-450) x10^3/uL MPV (7.5-11.0) fL Sodium (137-145) mmol/L Potassium (3.5-5.1) mmol/L Chloride (98-107) mmol/L Carbon Dioxide (22-30) mmol/L Anion Gap (5-15) MEQ/L BUN (9-20) mg/dL Creatinine (0.66-1.25) mg/dL Estimated GFR ML/MIN Glucose (74-106) mg/dL POC Glucometer 196 H 242 H 155 H (74 to 106) mg/dL Calcium (8.4-10.2) mg/dL Multi-Disciplinary Progress Notes: Multi-Disciplinary Progress Notes 04/22/23 12:26 Case Management Note by Kasie Garcia NO CHANGE IN DC PLANS AT THIS TIME Initialized on 04/22/23 12:26 - END OF NOTE Assessment/Plan (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 ## Mollaret's syndrome - frequent admissions with pain requiring Dilaudid LOG TURNER. No neurologic symptoms other than paresthesias to bilateral feet. Follows with pain doc as outpatient. Now starting to improve slightly. - continue Dilaudid LOG TURNER - continue acyclovir 1000 q8h - continue Hydrocortisone 100 q8h - continue Cymbalta 60 BID for paresthesias ## DM2 - HbA1c 7.6. Worsened during acute hospitalizations when on steroids for his aseptic meningitis. Glucose levels improving today after starting Lantus. - continue high-dose sliding scale insulin - continue metformin 1000 BID -Continue lantus 10 units qHS ## Hypertension. BP controlled. - continue enalapril 20 qHS Code Status: Full code Prophylaxis: start Lovenox Entirety of encounter took place via telemedicine, to which patient consented. Code(s): G03.2 - BENIGN RECURRENT MENINGITIS [MOLLARET] (2) Type 2 diabetes mellitus Current Visit: No Status: Chronic Qualifiers: (3) Hypertension Current Visit: No Status: Chronic Onset Date: ~11/01/18 Code(s): I10 - ESSENTIAL (PRIMARY) HYPERTENSION
[2023-04-22] MEDS: HYDROMORPHONE 30 MG/30 ML-NS PCA IV PRN (17:00)
[2023-04-22] MEDS: Protonix 40MG Tablet PO SCH (22:58)
[2023-04-22] MEDS: Vasotec 10 MG PO SCH (22:58)
[2023-04-22] MEDS: Zocor 10MG PO SCH (22:58)
[2023-04-22] MEDS: BENADRYL 50 MG/ML IV SCH (22:59)
[2023-04-22] MEDS: Lantus Insulin SQ SCH (23:00)
[2023-04-23] MEDS: Sodium Chloride 0.9% 1000 ML 1,000 ML IV SCH ×2 (02:58→15:05)
[2023-04-23] MEDS: MSIR 15 MG PO SCH ×4 (05:11→23:20)
[2023-04-23] MEDS: solu-CORTEF 100MG IV SCH ×3 (05:12→23:19)
[2023-04-23] MEDS: WATER IV SCH ×3 (05:12→23:18)
[2023-04-23] MEDS: ZOVIRAX IV SCH ×3 (05:12→23:18)
[2023-04-23] MEDS: Sterile H2O 10 ml IJ SCH ×3 (05:12→23:44)
[2023-04-23] MEDS: DEXTROSE IV SCH ×3 (05:12→23:18)
[2023-04-23] MEDS: ENOXAPARIN SODIUM SQ SCH (08:01)
[2023-04-23] MEDS: Acidophilus TABLET PO SCH (08:17)
[2023-04-23] MEDS: Cymbalta 30 MG Capsule PO SCH ×2 (08:17→23:19)
[2023-04-23] MEDS: THERAGRAN MULTIVITAMIN PO SCH (08:17)
[2023-04-23] MEDS: Glucophage 500 MG PO SCH ×2 (08:17→17:23)
[2023-04-23] MEDS: ECOTRIN 81 MG PO SCH (08:17)
[2023-04-23] MEDS: HUMULIN R SQ SCH ×4 (08:18→23:27)
[2023-04-23] MEDS: MINERAL OIL PO SCH ×3 (08:18→23:19)
[2023-04-23] MEDS: HYDROMORPHONE 30 MG/30 ML-NS PCA IV PRN (09:56)
--- NOTE | 2023-04-23 12:58 | PCM.NOTE ---
Date and Time: 04/23/23 1253 Subjective Assessment: No acute events overnight. Headache continues to slightly improved. He thinks he has turned the corner, may be ready to go home by tomorrow. But that his headache is worse with movement, and occasional associated with blurry vision. He lives at home with his mother and stepfather, who can help care for him when he gets there. He is currently not working, on disability. Patient refused his Lantus last night. States he did not understand, because he had never been given long-acting insulin before. We discussed the role of long- acting insulin and improving his overall blood sugar levels, and his need for increase corrective dosing while he is on high-dose steroids for his meningitis. He expressed understanding, and willing to proceed with Lantus going forward. - Review of Systems Eyes: Vision Changes Neurological: Headache All Other Systems: Reviewed and Negative Objective Exam General Appearance: no apparent distress Neurologic Exam: alert, oriented x 3, normal mood/affect Eye Exam: eyes nml inspection Respiratory Exam: normal breath sounds, No lungs clear, No respiratory distress Cardiovascular Exam: regular rate/rhythm, No murmur, No edema Gastrointestinal/Abdomen Exam: soft, No tenderness, No distention OBJECTIVE DATA Vital Signs: Vital Signs - 24 hr Temp Pulse Resp BP Pulse Ox 04/23/23 11:34 97.1 F 85 16 134/79 94 L 04/23/23 07:39 97.1 F 77 16 137/81 04/23/23 06:59 18 98 04/23/23 06:39 97 04/23/23 05:00 18 96 04/23/23 04:00 97.0 F 83 18 122/76 96 04/23/23 03:16 18 96 04/23/23 01:00 20 100 04/23/23 00:00 97.6 F 82 20 135/86 100 04/22/23 20:00 97.1 F 90 20 132/67 100 04/22/23 19:24 98 04/22/23 19:16 18 96 04/22/23 17:53 96 04/22/23 16:00 97.5 F 104 H 18 132/80 97 Pain Assessment - Last Documented Pain Intensity 8 Pain Scale Used 0-10 Pain Scale Intake and Output: Intake & Output 04/21/23 04/22/23 04/23/23 04/24/23 11:59 11:59 11:59 11:59 Intake Total 7676 4306 5642 Output Total 4741 1309 4589 Balance 3326 -496 2092 Weight 110 kg Lab Results: Lab Results-Last 24 Hours 04/22/23 04/22/23 04/23/23 Range/Units 15:57 21:28 07:03 POC Glucometer 155 H 261 H 195 H (74 to 106) mg/dL 04/23/23 Range/Units 11:10 POC Glucometer 290 H (74 to 106) mg/dL Multi-Disciplinary Progress Notes: Multi-Disciplinary Progress Notes 04/23/23 11:06 Case Management Note by Kasie Garcia S/W PATIENT- HE CONTINUES TO DENY ANY NEW NEEDS AT TIME OF DC. 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 ## Mollaret's syndrome - frequent admissions with pain requiring Dilaudid NURSING AIDE. No neurologic symptoms other than paresthesias to bilateral feet. Follows with pain doc as outpatient. Headache beginning to improve. - continue Dilaudid NURSING AIDE - continue acyclovir 1000 q8h - continue Hydrocortisone 100 q8h - continue Cymbalta 60 BID for paresthesias ## DM2 - HbA1c 7.6. Worsened during acute hospitalizations when on steroids for his aseptic meningitis. Glucose levels high today after refusing Lantus last night. Educated on role of Lantus, especially with his hyperglycemia from steroids. - continue high-dose sliding scale insulin - continue metformin 1000 BID - Continue lantus 10 units qHS; educated patient on use ## Hypertension. BP controlled. - continue enalapril 20 qHS Code Status: Full code Prophylaxis: Lovenox Dispo: Hopefully home in next day or so. Entirety of encounter took place via telemedicine, to which patient consented. Code(s): G03.2 - BENIGN RECURRENT MENINGITIS [MOLLARET] (2) Type 2 diabetes mellitus Current Visit: No Status: Chronic Qualifiers: (3) Hypertension Current Visit: No Status: Chronic Onset Date: ~11/01/18 Code(s): I10 - ESSENTIAL (PRIMARY) HYPERTENSION Telemedicine Encounter - Telemedicine Encounter Telemedicine Encounter: The entirety of this encounter was performed via Telemedicine"
[2023-04-23] MEDS ORDERED: Zovirax INJ IV ONE (14:42)
[2023-04-23] MEDS: BENADRYL 50 MG/ML IV SCH (23:19)
[2023-04-23] MEDS: Protonix 40MG Tablet PO SCH (23:20)
[2023-04-23] MEDS: Zocor 10MG PO SCH (23:20)
[2023-04-23] MEDS: Vasotec 10 MG PO SCH (23:20)
[2023-04-23] MEDS: Lantus Insulin SQ SCH (23:27)
[2023-04-24] MEDS: HYDROMORPHONE 30 MG/30 ML-NS PCA IV PRN (01:35)
[2023-04-24] MEDS: Sodium Chloride 0.9% 1000 ML 1,000 ML IV SCH (02:59)
[2023-04-24] MEDS: solu-CORTEF 100MG IV SCH (06:29)
[2023-04-24] MEDS: Sterile H2O 10 ml IJ SCH (06:29)
[2023-04-24] MEDS: MSIR 15 MG PO SCH ×2 (06:29→12:33)
[2023-04-24] MEDS: ZOVIRAX IV SCH (07:24)
[2023-04-24] MEDS: WATER IV SCH (07:24)
[2023-04-24] MEDS: DEXTROSE IV SCH (07:24)
[2023-04-24] MEDS: HUMULIN R SQ SCH ×2 (07:57→12:44)
[2023-04-24] MEDS: Cymbalta 30 MG Capsule PO SCH (08:19)
[2023-04-24] MEDS: Acidophilus TABLET PO SCH (08:19)
[2023-04-24] MEDS: ECOTRIN 81 MG PO SCH (08:19)
[2023-04-24] MEDS: Glucophage 500 MG PO SCH (08:19)
[2023-04-24] MEDS: THERAGRAN MULTIVITAMIN PO SCH (08:20)
[2023-04-24] MEDS: MINERAL OIL PO SCH (08:21)
[2023-04-24] MEDS: ENOXAPARIN SODIUM SQ SCH (08:21)
[2023-04-24 11:23] VITALS: BP 134/74; PULSE 79; O2SAT 98
--- NOTE | 2023-04-24 13:25 | PCM.DS ---
Discharge Summary Date of Admission: 04/19/23 11:59 Date of Discharge: 04/24/23 Admitting Physician: ADAM TERRY MD Primary Care Provider: ANN ALEXIS Allergies Allergies pregabalin [From Lyrica] Adverse Reaction (Severe, Verified 04/18/23 16:00) Hives SOB hives azithromycin [From Zmax] Adverse Reaction (Mild, Verified 04/18/23 16:00) vomiting Hospital Summary - Hospital Course Hospital Course: 53-year-old man with history of Mollaret's syndrome, type 2 diabetes, and hypertension, with frequent admissions for severe pain from his meningitis, here with recurrent severe head and neck pain, typical for his symptoms. He has worsening of his chronic loss sensation in his legs bilaterally. No other new focal findings. He was admitted and started on Dilaudid FILLER BLOCK INSERTER REMOVER, acyclovir IV, and hydrocortisone 100 mg IV q.8 hour. (Patient is on prednisone 50 mg daily for suppressive therapy at home.) He slowly improved, with eventual control of his headache and neck pain. Because of hyperglycemia from steroids, he was covered with high-dose sliding scale insulin as well as briefly using some Lantus. However, on discharge, he will be tapered back to his home steroid dosing, so resume only his metformin from home. He was discharged complete 5 more days of steroid taper back to his chronic dosing of prednisone 15 mg. He will also have 5 more days of oral acyclovir. He will follow-up with his pain management physician for narcotic prescriptions. Entirety of encounter took place via telemedicine. Patient consented to telemedicine. Greater than 30 minutes managing discharge. - Vitals & Intake/Output Vital Signs: Vital Signs Temperature 98.1 F 04/24/23 11:22 Pulse Rate 79 04/24/23 11:22 Respiratory Rate 18 04/24/23 11:22 Blood Pressure 134/74 04/24/23 11:22 O2 Sat by Pulse Oximetry 98 04/24/23 11:22 Intake & Output: Intake & Output 04/22/23 04/23/23 04/24/23 04/25/23 11:59 11:59 11:59 11:59 Intake Total 4304 5642 4119 Output Total 5190 2130 5300 Balance -496 2092 -1181 Weight 110 kg - Lab Result Diagrams: 04/22/23 04:53 04/22/23 04:53 Lab Results-Last 24 Hrs: Lab Results-Last 24 Hours 04/23/23 04/23/23 04/24/23 Range/Units 16:23 21:21 06:34 POC Glucometer 228 H 209 H 168 H (74 to 106) mg/dL 04/24/23 Range/Units 11:13 POC Glucometer 214 H (74 to 106) mg/dL Micro Results-Entire Visit: Accuchecks Date 04/24/23 Date 04/24/23 Date 04/23/23 Time 11:22 Time 07:24 Time 17:05 Discharge Exam General Appearance: no apparent distress Neurologic Exam: alert, oriented x 3, No normal mood/affect, No motor deficits, No sensory deficit Eye Exam: eyes nml inspection Respiratory Exam: normal breath sounds Cardiovascular Exam: regular rate/rhythm, No murmur, No edema Gastrointestinal/Abdomen Exam: soft, No tenderness, No distention Final Diagnosis/Problem List - Final Discharge Diagnosis/Problem (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 Code(s): G03.2 - BENIGN RECURRENT MENINGITIS [MOLLARET] (2) Type 2 diabetes mellitus Current Visit: No Status: Chronic (3) Hypertension Current Visit: No Status: Chronic Onset Date: ~11/01/18 Code(s): I10 - ESSENTIAL (PRIMARY) HYPERTENSION Telemedicine Encounter - Telemedicine Encounter Telemedicine Encounter: The entirety of this encounter was performed via Telemedicine" - Discharge Discharge Date: 04/24/23 Disposition: Home, Self-Care Condition: Stable Prescriptions: New Prednisone 20 mg [Deltasone 20 mg] 20 mg PO DAILY #12 tablet Acyclovir [Zovirax] 800 mg PO 5XD #500 ml Continue Enalapril Maleate 10 mg [Vasotec 10 MG] 20 mg PO HS Multivitamin [Multi-Vitamin Daily] 1 each PO DAILY Aspirin 81 mg PO DAILY Testosterone Cypionate 0.75 ml IM UD Duloxetine HCl [Cymbalta] 60 mg PO BID Metformin HCl 500 mg [Glucophage 500 MG] 1,000 mg PO BIDWM Atorvastatin Calcium [Lipitor] 10 mg PO HS Morphine Sulfate Ir 15 mg [Msir 15 mg] 15 mg PO 0600,1200,1800,0000 Mineral Oil 30 ml PO TID Esomeprazole Magnesium [Nexium 24Hr] 40 mg PO HS Lactobacillus Combo No.10 [Probiotic] 1 each PO DAILY ARIPiprazole [Abilify Mycite] 5 mg PO DAILY #30 tab Prednisone 10 mg [Deltasone 10 mg] 15 mg PO DAILY Additional Instructions: Take a decreasing dose of prednisone 20 mg tablet as follows: Take 3 tabs by mouth daily for two days. Then take 2 tabs by mouth daily for two days. Then take 1 tab by mouth daily for two days. Take the oral acyclovir (antiviral medication) for 5 days. Follow up with: ANN ALEXIS MD [Primary Care Provider] - 05/07/23 10:45 am
== END 2023-04-24 13:33 | disposition home or self-care (01) | DRG 76 ==
LOC: ED 15:35 → MED SURG 18:24 → OBSVTOIN 04-19 11:59
PROVIDERS: ADMIT Internal Medicine; ATTEND Family Medicine
DX: G03.2 Benign recurrent meningitis [Mollaret] (principal); I10 Essential (primary) hypertension; E11.9 Type 2 diabetes mellitus without complications; E78.5 Hyperlipidemia, unspecified; R52 Pain, unspecified; E66.9 Obesity, unspecified; Z79.899 Other long term (current) drug therapy; Z20.828 Contact with and (suspected) exposure to other viral communicable diseases
CPT/HCPCS: 36415; 80048; 80053; 82947; 83036; 83735; 84100; 85025; 85027; 85652; 93268; 94762; 96374; 99285; G0378; Q3014; J0133; J1170; J1200; J1720; J1815; A9270-GY

== ENCOUNTER 2023-04-27 17:08 | Inpatient (IN) | payer MEDICARE, BC ==
--- NOTE | 2023-04-27 17:10 | ERPHSYRPT ---
- History of Present Illness Time Seen by Provider: 04/27/23 17:10 Source: patient Exam Limitations: no limitations Physician History: This is a 53-year-old white male patient of Dr. Pardo who is well-known to our emergency department. 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 In the last few years the patient was seen in our emerge ncy department every 4 to 6 weeks. However he is slowly been evaluated and treated in our emergency department every 4 weeks and now every 2 to 3 weeks. I spoke to him about the fact he is having symptoms more frequently. The patient states he is aware of this. He was told by his neurologist, Dr. Alcantara, that this could happen with time. Patient was discharged to home from a recent hospitalization on 04/19/2023. Typically he begins to feel better during his hospitalization and after discharge he feels pretty good. However, after his discharge on 04/19/2023 his symptoms did not improve in fact worsened. He has the same symptoms he typically has. Patient denies chest pain. He does not have any shortness of breath. Patient has a history of diabetes, hypertension hyperlipidemia as well as gastroesophageal reflux disease. His next appointment with his neurologist is June 03. He contacted the neurologist office today and they moved his August 2023 appointment up to June 03, 2023. Timing/Duration: day(s) (Last several days), worse Severity: moderate Associated Symptoms: headaches, No nausea, No vomiting, No abdominal pain, No shortness of breath, No chest pain Allergies/Adverse Reactions: pregabalin [From Lyrica] Adverse Reaction (Severe, Verified 04/27/23 17:19) Hives SOB hives azithromycin [From Zmax] Adverse Reaction (Mild, Verified 04/27/23 17:19) vomiting Home Medications: Aspirin 81 mg PO DAILY 01/24/14 [History] Enalapril Maleate 10 mg [Vasotec 10 MG] 20 mg PO HS 01/24/14 [History] Multivitamin [Multi-Vitamin Daily] 1 each PO DAILY 01/24/14 [History] Testosterone Cypionate 0.75 ml IM UD 10/09/14 [History] Duloxetine HCl [Cymbalta] 60 mg PO BID 04/23/15 [History] Metformin HCl 500 mg [Glucophage 500 MG] 1,000 mg PO BIDWM 04/20/20 [History] Atorvastatin Calcium [Lipitor] 10 mg PO HS 01/06/22 [History] Morphine Sulfate Ir 15 mg [Msir 15 mg] 15 mg PO 0600,1200,1800,0000 02/07/22 [History] Mineral Oil 30 ml PO TID 10/30/22 [History] Esomeprazole Magnesium [Nexium 24Hr] 40 mg PO HS 12/25/22 [History] Lactobacillus Combo No.10 [Probiotic] 1 each PO DAILY 03/25/23 [History] Prednisone 10 mg [Deltasone 10 mg] 15 mg PO DAILY 04/18/23 [History] Hx Tetanus, Diphtheria Vaccination/Date Given: Yes Hx Influenza Vaccination/Date Given: No Hx Pneumococcal Vaccination/Date Given: Yes Travel Risk - International Travel Have you traveled outside of the country in past 3 weeks: No - Coronavirus Screening Are you exhibiting any of the following symptoms?: No Close contact with a COVID-19 positive Pt in past 14-21 Days: No - Vaccine Status Have you recieved a Covid-19 vaccination: Yes 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 - Review of Systems Constitutional: No Symptoms Eyes: No Symptoms Ears, Nose, & Throat: No Symptoms Respiratory: No Symptoms Cardiac: No Symptoms Abdominal/Gastrointestinal: No Symptoms Genitourinary Symptoms: No Symptoms Musculoskeletal: No Symptoms Skin: No Symptoms Neurological: Headache Psychological: No Symptoms Endocrine: No Symptoms Hematologic/Lymphatic: No Symptoms Immunological/Allergic: No Symptoms All Other Systems: Reviewed and Negative - Past Medical History Pertinent Past Medical History: Yes Neurological History: Paralysis, Seizures ENT History: No Pertinent History Cardiac History: High Cholesterol, Hypertension Respiratory History: Sleep Apnea Endocrine Medical History: Diabetes Type II Musculoskeletal History: No Pertinent History GI Medical History: No Pertinent History History: No Pertinent History Psycho-Social History: Depression Male Reproductive Disorders: No Pertinent History Other Medical History: Mollaret's, spleen removed - Past Surgical History Past Surgical History: Yes Neuro Surgical History: No Pertinent History Cardiac: No Pertinent History Respiratory: No Pertinent History Gastrointestinal: Appendectomy, Other Genitourinary: No Pertinent History Musculoskeletal: No Pertinent History Male Surgical History: Vasectomy Other Surgical History: CONSIDERED PRE-DIABETIC DUE STEROIDS. SPLENECTOMY 1988 - Social History Smoking Status: Never smoker Exposure to second hand smoke: No Alcohol Use: None Drug Use: none Patient Lives Alone: No Significant Family History: no pertinent family hx - Nursing Vital Signs Nursing Vital Signs: Initial Vital Signs Temperature 96.2 F 04/27/23 17:11 Pulse Rate 129 H 04/27/23 17:11 Blood Pressure 131/97 04/27/23 17:11 O2 Sat by Pulse Oximetry 98 04/27/23 17:11 Pain Scale Pain Intensity 9 - Physical Exam General Appearance: mild distress, alert, anxiety (To moderate) Eye Exam: PERRL/EOMI, eyes nml inspection Ears, Nose, Throat Exam: normal ENT inspection, moist mucous membranes Neck Exam: normal inspection, non-tender, supple, full range of motion Respiratory Exam: normal breath sounds, lungs clear, airway intact, No chest tenderness, No respiratory distress Cardiovascular Exam: tachycardia Gastrointestinal/Abdomen Exam: soft, normal bowel sounds, No tenderness Rectal Exam: not done Back Exam: normal inspection, normal range of motion, No CVA tenderness, No vertebral tenderness Extremity Exam: normal inspection, normal range of motion, pelvis stable Neurologic Exam: alert, oriented x 3, cooperative, 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 tested, normal mood/affect, nml cerebellar function, nml station & gait, sensation nml Skin Exam: normal color, warm, dry Lymphatic Exam: No adenopathy SpO2 Interpretation: normal O2 Delivery: Room Air - Course Nursing assessment & vital signs reviewed: Yes Ordered Tests: Active Orders 24 hr Category Date Time Status IV Insertion STAT Care 04/27/23 17:30 Active CBC W DIFF Stat Lab 04/27/23 17:35 Completed CMP Stat Lab 04/27/23 17:35 Completed Lactic Acid Stat Lab 04/27/23 17:38 Completed Transfer Order Routine Transfer 04/27/23 Ordered Medication Summary Generic Name Dose Route Start Last Admin Trade Name Freq PRN Reason Stop Dose Admin Sodium Chloride 1,000 mls @ 999 mls/hr 04/27/23 17:30 04/27/23 18:05 Sodium Chloride 0.9% 1000 Ml IV 04/27/23 18:30 999 mls/hr .Q1H1M STA Administration Acyclovir Sodium 500 mg/ 100 mls @ 100 mls/hr 04/27/23 17:31 04/27/23 18:05 Dextrose IV 04/27/23 18:30 100 mls/hr STAT ONE Administration Discontinued Medications Generic Name Dose Route Start Last Admin Trade Name [place] PRN Reason Stop Dose Admin Acyclovir Sodium Confirm 04/27/23 17:44 Acyclovir Sodium 500 Mg/Vial Vial Administered 04/27/23 17:45 Dose 500 mg IV .STK-MED ONE Hydrocortisone Sodium Succinate 100 mg 04/27/23 17:31 04/27/23 18:04 Hydrocortisone Sod Succinate 100 Mg/Vial Vial IV 04/27/23 17:32 100 mg STAT ONE Administration Hydrocortisone Sodium Succinate Confirm 04/27/23 17:44 Hydrocortisone Sod Succinate 100 Mg/Vial Vial Administered 04/27/23 17:45 Dose 100 mg .ROUTE .STK-MED ONE Hydromorphone HCl 2 mg 04/27/23 17:30 04/27/23 18:04 Hydromorphone 1 Mg/1ml Inj IV 04/27/23 17:31 2 mg STAT ONE Administration Hydromorphone HCl Confirm 04/27/23 17:44 Hydromorphone 1 Mg/1ml Inj Administered 04/27/23 17:45 Dose 2 mg .ROUTE .STK-MED ONE Sodium Chloride Confirm 04/27/23 17:44 Sodium Chloride 0.9% 1000 Ml Administered 04/27/23 17:45 Dose 1,000 mls @ ud .ROUTE .STK-MED ONE Dextrose Confirm 04/27/23 17:45 D5w 100ml Mini Bag 100 Ml Administered 04/27/23 17:46 Dose 100 mls @ ud IV .STK-MED ONE Ondansetron HCl 4 mg 04/27/23 17:30 04/27/23 18:04 Ondansetron Hcl 4 Mg/2 Ml Vial IV 04/27/23 17:31 4 mg STAT ONE Administration Ondansetron HCl Confirm 04/27/23 17:43 Ondansetron Hcl 4 Mg/2 Ml Vial Administered 04/27/23 17:44 Dose 4 mg .ROUTE .STK-MED ONE Sterile Water Confirm 04/27/23 17:53 Water For Injection,Sterile 10 Ml Vial Administered 04/27/23 17:54 Dose 10 ml IJ .STK-MED ONE Lab/Rad Data: Laboratory Result Diagrams 04/27/23 17:35 04/27/23 17:35 Laboratory Results 04/27/23 04/27/23 04/27/23 Range/Units 17:38 17:35 17:35 WBC 10.4 (4.0-10.5) x10^3/uL RBC 5.41 (4.1-5.6) x10^6/uL Hgb 15.7 (12.5-18.0) g/dL Hct 48.3 (42-50) % MCV 89.3 (78-100) fL MCH 29.0 (26-32) pg MCHC 32.5 (32-36) g/dL RDW 15.7 H (11.5-14.0) % Plt Count 466 H (150-450) x10^3/uL MPV 9.3 (7.5-11.0) fL Gran % 78.7 H (36.0-66.0) % Immature Gran % (Auto) 0.9 H (0.00-0.4) % Nucleat RBC Rel Count 0.0 (0.00-0.1) % Eos # (Auto) 0.16 (0-0.5) x10^3/uL Immature Gran # (Auto) 0.09 H (0.00-0.03) x10^3u/L Absolute Lymphs (auto) 1.42 (1.0-4.6) x10^3/uL Absolute Monos (auto) 0.47 (0.0-1.3) x10^3/uL Absolute Nucleated RBC 0.00 (0.00-0.01) x10^3u/L Lymphocytes % 13.7 L (24.0-44.0) % Monocytes % 4.5 (0.0-12.0) % Eosinophils % 1.5 (0.00-5.0) % Basophils % 0.7 (0.0-0.4) % Absolute Granulocytes 8.17 H (1.4-6.9) x10^3/uL Basophils # 0.07 (0-0.4) x10^3/uL Sodium 136 L (137-145) mmol/L Potassium 4.5 (3.5-5.1) mmol/L Chloride 98 (98-107) mmol/L Carbon Dioxide 24 (22-30) mmol/L Anion Gap 18.2 H (5-15) MEQ/L BUN 11 (9-20) mg/dL Creatinine 0.72 (0.66-1.25) mg/dL Estimated GFR > 60.0 ML/MIN Glucose 228 H (74-106) mg/dL Lactic Acid 3.4 H (0.4-2.0) Calcium 9.2 (8.4-10.2) mg/dL Total Bilirubin 0.60 (0.2-1.3) mg/dL AST 40 (17-59) U/L ALT 35 (0-50) U/L Alkaline Phosphatase 104 (38-126) U/L Serum Total Protein 7.8 (6.3-8.2) g/dL Albumin 4.3 (3.5-5.0) g/dL - Progress Progress: improved, pain not gone completely Progress Note: 04/27/23 18:18 This patient's medical issue is of high complexity. The level complexity and the work-up performed is based on review of the patient's past medical history, review of the patient's medication list, review the patient's drug allergy list, history of present illness and physical findings on examination. The work-up in this patient includes placement of an intravenous line, infusion of 1 L normal saline solution, CBC, CMP, starting acyclovir 500 mg intravenous now, Dilaudid 2 mg intravenous now, Zofran 4 mg intravenous now and hydrocortisone 100 mg intravenous now. I spoke with Dr. Booker, the telehospitalist on-call. I reviewed the patient history, history of present illness and physical finds on examination. He is well aware of this patient. We will place him in observation and provide him with the above treatment. I did have a discussion with the patient regarding being reevaluated by his neurologist. Patient has an appointment to be seen on June 03, 2023. The patient informs me that the patient's neurologist told him that with time this patient's clinical condition will become more frequent and will be less time between exacerbations of his symptoms. Counseled pt/family regarding: lab results, diagnosis, need for follow-up Medical Desision Making - Discussion of managment Reviewed:: Test results, Need for additional workup Agreed on:: Treatment plan, place in obs - Diagnostic Testing Diagnostic test were ordered, analyzed, and reviewed by me: Yes - Risk of complications The pt has a high risk of morbidity or mortality based on: Decision regarding hospitilization or escalation of hosp level of care - Departure Departure Disposition: Observation Clinical Impression: Mollaret's syndrome (benign recurrent meningitis) Condition: Stable Critical Care Time: No Referrals: ANN PARDO MD [Primary Care Provider] - Follow up/PCP as directed
[2023-04-27] MEDS ORDERED: Hydromorphone 1 mg/ml Injection IV ONE ×2 (17:30→19:37)
[2023-04-27] MEDS ORDERED: Zofran 4 MG/2 ML VIAL IV ONE (17:30)
[2023-04-27] MEDS ORDERED: Sodium Chloride 0.9% 1000 ML 1,000 ML IV STA (17:30)
[2023-04-27] MEDS ORDERED: Zovirax INJ*** 500 MG in D5w 100ML Mini Bag 100 ML 100 ML IV ONE (17:31)
[2023-04-27] MEDS ORDERED: solu-CORTEF 100MG IV ONE (17:31)
[2023-04-27 17:43] LABS: Absolute Neutrophil Ct (ANC) 8.17 x10^3/uL (1.4-6.9); BASOPHIL % 0.7 % (0.0-0.4); Basophil (Absolute #) 0.07 x10^3/uL (0-0.4); Eosinophil % 1.5 % (0.00-5.0); Eosinophil (Absolute #) 0.16 x10^3/uL (0-0.5); Hematocrit 48.3 % (42-50); Hemoglobin 15.7 g/dL (12.5-18.0); IMMATURE GRAN # 0.09 x10^3u/L (0.00-0.03); IMMATURE GRAN % 0.9 % (0.00-0.4); Lymphocyte (Absolute #) 1.42 x10^3/uL (1.0-4.6); Lymphocytes % 13.7 % (24.0-44.0); Mean Cell Volume 89.3 fL (78-100); Mean Corpuscular Hgb Concent. 32.5 g/dL (32-36); Mean Platelet Volume 9.3 fL (7.5-11.0); Monocyte (Absolute #) 0.47 x10^3/uL (0.0-1.3); Monocytes % 4.5 % (0.0-12.0); Neutrophil % 78.7 % (36.0-66.0); Platelet Count 466 x10^3/uL (150-450); Red Blood Count 5.41 x10^6/uL (4.1-5.6); Red Cell Distribution Width 15.7 % (11.5-14.0); White Blood Count 10.4 x10^3/uL (4.0-10.5)
[2023-04-27] MEDS ORDERED: Zofran 4 MG/2 ML VIAL ONE (17:43)
[2023-04-27] MEDS ORDERED: solu-CORTEF 100MG ONE (17:44)
[2023-04-27] MEDS ORDERED: Sodium Chloride 0.9% 1000 ML 1,000 ML ONE (17:44)
[2023-04-27] MEDS ORDERED: Hydromorphone 1 mg/ml Injection ONE (17:44)
[2023-04-27] MEDS ORDERED: Zovirax INJ IV ONE ×3 (17:44→21:54)
[2023-04-27] MEDS ORDERED: D5w 100ML Mini Bag 100 ML 100 ML IV ONE (17:45)
[2023-04-27 17:53] LABS: ALBUMIN 4.3 g/dL (3.5-5.0); ALKALINE PHOSPHATASE 104 U/L (38-126); ANION GAP 18.2 MEQ/L (5-15); BLOOD UREA NITROGEN 11 mg/dL (9-20); CHLORIDE 98 mmol/L (98-107); Calcium 9.2 mg/dL (8.4-10.2); Carbon Dioxide 24 mmol/L (22-30); Creatinine 1 0.72 mg/dL (0.66-1.25); EST GLOMERULAR FILTRATION RATE > 60.0 ML/MIN; Glucose 228 mg/dL (74-106); Potassium 4.5 mmol/L (3.5-5.1); SGOT/AST 40 U/L (17-59); SGPT/ALT 35 U/L (0-50); SODIUM 136 mmol/L (137-145); Total Protein 7.8 g/dL (6.3-8.2)
[2023-04-27] MEDS ORDERED: Sterile H2O 10 ml IJ ONE ×2 (17:53→22:14)
[2023-04-27] MEDS ORDERED: STERILE WATER FOR INJECTION 20 ML IV ONE (18:06)
[2023-04-27] MEDS ORDERED: TYLENOL 325 MG PO PRN ×2 (18:23→19:50)
[2023-04-27] MEDS ORDERED: PHARMACY DOSING REQUIRED: DILAUDID PCA IV ONE ×2 (18:25→19:50)
[2023-04-27] MEDS ORDERED: Zofran 4 MG/2 ML VIAL IV PRN ×2 (18:25→19:50)
[2023-04-27] MEDS ORDERED: HUMULIN R SQ PRN (19:50)
[2023-04-27] MEDS ORDERED: Sodium Chloride 0.9% 1000 ML 1,000 ML IV SCH (19:50)
[2023-04-27] MEDS ORDERED: HYDROMORPHONE 30 MG/30 ML-NS PCA IV PRN (20:10)
[2023-04-27] MEDS: Sodium Chloride 0.9% 1000 ML 1,000 ML IV SCH (20:18)
[2023-04-27] MEDS: Cymbalta 30 MG Capsule PO SCH (21:48)
[2023-04-27] MEDS: Vasotec 10 MG PO SCH (21:49)
[2023-04-27] MEDS ORDERED: Sodium Chloride 0.9% 250 ML 250 ML IV ONE (21:54)
[2023-04-27] MEDS: ZOVIRAX IV SCH (21:58)
[2023-04-27] MEDS: SODIUM CHLORIDE 0.9% IV SCH (21:58)
[2023-04-27] MEDS: solu-CORTEF 100MG IV SCH (21:59)
[2023-04-27] MEDS: Protonix 40MG Tablet PO SCH (22:30)
[2023-04-28] MEDS ORDERED: Ms Contin 15 MG PO ONE (00:36)
[2023-04-28] MEDS: MSIR 15 MG PO SCH ×5 (00:41→22:59)
[2023-04-28] MEDS: MINERAL OIL PO SCH ×4 (00:51→21:39)
[2023-04-28] MEDS ORDERED: ZOVIRAX IV SCH (02:00)
[2023-04-28] MEDS ORDERED: solu-CORTEF 100MG IV SCH (02:00)
[2023-04-28] MEDS ORDERED: SODIUM CHLORIDE 0.9% IV SCH (02:00)
[2023-04-28] MEDS ORDERED: Hydromorphone 1 mg/ml Injection IV ONE (02:34)
[2023-04-28] MEDS: BENADRYL 50 MG/ML IV SCH ×2 (04:40→22:59)
[2023-04-28] MEDS: solu-CORTEF 100MG IV SCH ×4 (04:54→21:37)
[2023-04-28] MEDS: ZOVIRAX IV SCH ×3 (04:54→17:26)
[2023-04-28] MEDS: SODIUM CHLORIDE 0.9% IV SCH ×3 (04:54→17:26)
[2023-04-28 05:01] LABS: Absolute Neutrophil Ct (ANC) 7.67 x10^3/uL (1.4-6.9); BASOPHIL % 0.3 % (0.0-0.4); Basophil (Absolute #) 0.03 x10^3/uL (0-0.4); Eosinophil % 0.1 % (0.00-5.0); Eosinophil (Absolute #) 0.01 x10^3/uL (0-0.5); Hematocrit 42.8 % (42-50); IMMATURE GRAN # 0.09 x10^3u/L (0.00-0.03); IMMATURE GRAN % 0.9 % (0.00-0.4); Lymphocyte (Absolute #) 2.09 x10^3/uL (1.0-4.6); Lymphocytes % 19.9 % (24.0-44.0); Mean Cell Volume 88.6 fL (78-100); Mean Corpuscular Hgb Concent. 32.7 g/dL (32-36); Mean Platelet Volume 9.3 fL (7.5-11.0); Monocyte (Absolute #) 0.63 x10^3/uL (0.0-1.3); Neutrophil % 72.8 % (36.0-66.0); Platelet Count 419 x10^3/uL (150-450); Red Blood Count 4.83 x10^6/uL (4.1-5.6); Red Cell Distribution Width 15.8 % (11.5-14.0); White Blood Count 10.5 x10^3/uL (4.0-10.5)
[2023-04-28 05:22] LABS: ALBUMIN 3.8 g/dL (3.5-5.0); BILIRUBIN,TOTAL 0.5 mg/dL (0.2-1.3); Total Protein 6.8 g/dL (6.3-8.2)
[2023-04-28 05:27] LABS: ISTAT CREA 0.8 mg/dL (0.6-1.3); ISTAT K 4.2 mmol/L (3.5-4.9); ISTAT iCA 1.12 mmol/L (1.12-1.32)
[2023-04-28] MEDS: Glucophage 500 MG PO SCH ×2 (07:59→17:25)
[2023-04-28] MEDS: HUMALOG SQ PRN ×4 (08:00→21:37)
[2023-04-28] MEDS ORDERED: Protonix 40MG Tablet PO SCH (10:00)
[2023-04-28] MEDS ORDERED: Protonix 20MG Tablet PO SCH (10:00)
[2023-04-28] MEDS: Zocor 10MG PO SCH (10:07)
[2023-04-28] MEDS: Cymbalta 30 MG Capsule PO SCH ×2 (10:07→21:34)
[2023-04-28] MEDS: ECOTRIN 81 MG PO SCH (10:07)
[2023-04-28] MEDS: HYDROMORPHONE 30 MG/30 ML-NS PCA IV PRN (10:14)
--- NOTE | 2023-04-28 16:06 | PCM.NOTE ---
Date and Time: 04/28/23 1559 Subjective Assessment: No acute events overnight. 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 He noted some improvement overnight from the extra 1 mg dose. Unchanged bilateral leg tingling. He notes he is having some vision changes, with some blurriness. However, he thinks this been going on for the past few weeks. No focal weakness. - Review of Systems All Other Systems: Reviewed and Negative Objective Exam General Appearance: no apparent distress Neurologic Exam: alert, oriented x 3, normal mood/affect Skin Exam: No rash Eye Exam: eyes nml inspection Respiratory Exam: normal breath sounds, lungs clear, No accessory muscle use Cardiovascular Exam: regular rate/rhythm, normal heart sounds, No edema Gastrointestinal/Abdomen Exam: soft, No tenderness, No distention OBJECTIVE DATA Vital Signs: Vital Signs - 24 hr Temp Pulse Resp BP Pulse Ox 04/28/23 12:00 97.8 F 67 16 139/67 96 04/28/23 10:15 16 95 04/28/23 10:14 16 95 04/28/23 07:29 16 96 04/28/23 07:25 97.6 F 93 H 16 119/75 96 04/28/23 04:00 97.5 F 97 H 16 133/66 94 L 04/27/23 23:22 97.3 F 105 H 16 120/80 92 L 04/27/23 22:25 96 04/27/23 20:19 18 96 04/27/23 19:08 112 H 20 133/85 94 L 04/27/23 18:08 115 H 18 122/89 95 04/27/23 17:11 96.2 F 129 H 131/97 98 Pain Assessment - Last Documented Pain Intensity 8 Pain Scale Used 0-10 Pain Scale Intake and Output: Intake & Output 04/26/23 04/27/23 04/28/23 04/29/23 11:59 11:59 11:59 11:59 Intake Total 1380 480 Output Total 1550 1700 Balance -170 -1220 Weight 108.862 kg Lab Results: Lab Results-Last 24 Hours 04/27/23 04/27/23 04/27/23 Range/Units 17:35 17:35 17:38 WBC 10.4 (4.0-10.5) x10^3/uL RBC 5.41 (4.1-5.6) x10^6/uL Hgb 15.7 (12.5-18.0) g/dL Hct 48.3 (42-50) % MCV 89.3 (78-100) fL MCH 29.0 (26-32) pg MCHC 32.5 (32-36) g/dL RDW 15.7 H (11.5-14.0) % Plt Count 466 H (150-450) x10^3/uL MPV 9.3 (7.5-11.0) fL Gran % 78.7 H (36.0-66.0) % Immature Gran % (Auto) 0.9 H (0.00-0.4) % Nucleat RBC Rel Count 0.0 (0.00-0.1) % Eos # (Auto) 0.16 (0-0.5) x10^3/uL Immature Gran # (Auto) 0.09 H (0.00-0.03) x10^3u/L Absolute Lymphs (auto) 1.42 (1.0-4.6) x10^3/uL Absolute Monos (auto) 0.47 (0.0-1.3) x10^3/uL Absolute Nucleated RBC 0.00 (0.00-0.01) x10^3u/L Lymphocytes % 13.7 L (24.0-44.0) % Monocytes % 4.5 (0.0-12.0) % Eosinophils % 1.5 (0.00-5.0) % Basophils % 0.7 (0.0-0.4) % Absolute Granulocytes 8.17 H (1.4-6.9) x10^3/uL Basophils # 0.07 (0-0.4) x10^3/uL Sodium 136 L (137-145) mmol/L Sodium Direct (138-146) mmol/L Potassium 4.5 (3.5-5.1) mmol/L Chloride 98 (98-107) mmol/L Carbon Dioxide 24 (22-30) mmol/L Anion Gap 18.2 H (5-15) MEQ/L BUN 11 (9-20) mg/dL Venous BUN (8-26) mg/dL Creatinine 0.72 (0.66-1.25) mg/dL Estimated GFR > 60.0 ML/MIN Glucose 228 H (74-106) mg/dL POC Glucometer (74 to 106) mg/dL Lactic Acid 3.4 H (0.4-2.0) Calcium 9.2 (8.4-10.2) mg/dL Ionized Calcium (1.12-1.32) mmol/L Total Bilirubin 0.60 (0.2-1.3) mg/dL AST 40 (17-59) U/L ALT 35 (0-50) U/L Alkaline Phosphatase 104 (38-126) U/L Serum Total Protein 7.8 (6.3-8.2) g/dL Albumin 4.3 (3.5-5.0) g/dL 04/27/23 04/27/23 04/28/23 Range/Units 19:41 21:53 04:49 WBC 10.5 (4.0-10.5) x10^3/uL RBC 4.83 (4.1-5.6) x10^6/uL Hgb 14.0 (12.5-18.0) g/dL Hct 42.8 (42-50) % MCV 88.6 (78-100) fL MCH 29.0 (26-32) pg MCHC 32.7 (32-36) g/dL RDW 15.8 H (11.5-14.0) % Plt Count 419 (150-450) x10^3/uL MPV 9.3 (7.5-11.0) fL Gran % 72.8 H (36.0-66.0) % Immature Gran % (Auto) 0.9 H (0.00-0.4) % Nucleat RBC Rel Count 0.0 (0.00-0.1) % Eos # (Auto) 0.01 (0-0.5) x10^3/uL Immature Gran # (Auto) 0.09 H (0.00-0.03) x10^3u/L Absolute Lymphs (auto) 2.09 (1.0-4.6) x10^3/uL Absolute Monos (auto) 0.63 (0.0-1.3) x10^3/uL Absolute Nucleated RBC 0.00 (0.00-0.01) x10^3u/L Lymphocytes % 19.9 L (24.0-44.0) % Monocytes % 6.0 (0.0-12.0) % Eosinophils % 0.1 (0.00-5.0) % Basophils % 0.3 (0.0-0.4) % Absolute Granulocytes 7.67 H (1.4-6.9) x10^3/uL Basophils # 0.03 (0-0.4) x10^3/uL Sodium (137-145) mmol/L Sodium Direct (138-146) mmol/L Potassium (3.5-5.1) mmol/L Chloride (98-107) mmol/L Carbon Dioxide (22-30) mmol/L Anion Gap (5-15) MEQ/L BUN (9-20) mg/dL Venous BUN (8-26) mg/dL Creatinine (0.66-1.25) mg/dL Estimated GFR ML/MIN Glucose (74-106) mg/dL POC Glucometer 300 H (74 to 106) mg/dL Lactic Acid 2.3 H (0.4-2.0) Calcium (8.4-10.2) mg/dL Ionized Calcium (1.12-1.32) mmol/L Total Bilirubin (0.2-1.3) mg/dL AST (17-59) U/L ALT (0-50) U/L Alkaline Phosphatase (38-126) U/L Serum Total Protein (6.3-8.2) g/dL Albumin (3.5-5.0) g/dL 04/28/23 04/28/23 04/28/23 Range/Units 04:49 07:33 12:10 WBC (4.0-10.5) x10^3/uL RBC (4.1-5.6) x10^6/uL Hgb (12.5-18.0) g/dL Hct (42-50) % MCV (78-100) fL MCH (26-32) pg MCHC (32-36) g/dL RDW (11.5-14.0) % Plt Count (150-450) x10^3/uL MPV (7.5-11.0) fL Gran % (36.0-66.0) % Immature Gran % (Auto) (0.00-0.4) % Nucleat RBC Rel Count (0.00-0.1) % Eos # (Auto) (0-0.5) x10^3/uL Immature Gran # (Auto) (0.00-0.03) x10^3u/L Absolute Lymphs (auto) (1.0-4.6) x10^3/uL Absolute Monos (auto) (0.0-1.3) x10^3/uL Absolute Nucleated RBC (0.00-0.01) x10^3u/L Lymphocytes % (24.0-44.0) % Monocytes % (0.0-12.0) % Eosinophils % (0.00-5.0) % Basophils % (0.0-0.4) % Absolute Granulocytes (1.4-6.9) x10^3/uL Basophils # (0-0.4) x10^3/uL Sodium (137-145) mmol/L Sodium Direct 134 L (138-146) mmol/L Potassium 4.2 (3.5-5.1) mmol/L Chloride 98 (98-107) mmol/L Carbon Dioxide 25 (22-30) mmol/L Anion Gap (5-15) MEQ/L BUN (9-20) mg/dL Venous BUN 10 (8-26) mg/dL Creatinine 0.8 (0.66-1.25) mg/dL Estimated GFR ML/MIN Glucose 220 H (74-106) mg/dL POC Glucometer 204 H 320 H (74 to 106) mg/dL Lactic Acid (0.4-2.0) Calcium (8.4-10.2) mg/dL Ionized Calcium 1.12 (1.12-1.32) mmol/L Total Bilirubin 0.50 (0.2-1.3) mg/dL AST 26 (17-59) U/L ALT 30 (0-50) U/L Alkaline Phosphatase 93 (38-126) U/L Serum Total Protein 6.8 (6.3-8.2) g/dL Albumin 3.8 (3.5-5.0) g/dL Assessment/Plan (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 Assessment & Plan: 53-year-old man with history of Mollaret syndrome (recurrent aseptic meningitis), DM 2, and hypertension, here with recurrent exacerbation of his chronic meningitis. ## Mollaret syndrome with frequent admissions due to pain and bilateral leg paresthesias. No other neurologic symptoms. Patient spoke to his outpatient neurologist and moved his appointment up to June 03, but he notes that his neurologist cautioned him these exacerbations will become more frequent and more intense over time. 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 Blood sugars are high again today. Restart Lantus 10 units QHS Continue metformin 1000 mg BID Changes sliding-scale insulin to high-dose protocol ## Hypertension blood pressure controlled. Continue home enalapril 20 mg QHS CODE STATUS: Full code Prophylaxis: Lovenox Dispo: Plan for return to home, once his pain is controlled. Entirety of encounter took place via telemedicine. Patient consented to telemedicine. Code(s): G03.2 - BENIGN RECURRENT MENINGITIS [MOLLARET] Telemedicine Encounter - Telemedicine Encounter Telemedicine Encounter: The entirety of this encounter was performed via Telemedicine"
[2023-04-28] MEDS ORDERED: TORAdol 30 mg Injection IV ONE (20:30)
[2023-04-28] MEDS: Protonix 40MG Tablet PO SCH (21:35)
[2023-04-28] MEDS: Vasotec 10 MG PO SCH (21:35)
[2023-04-28] MEDS: Lantus Insulin SQ SCH (21:38)
[2023-04-29] MEDS: HYDROMORPHONE 30 MG/30 ML-NS PCA IV PRN ×2 (03:33→20:37)
[2023-04-29] MEDS: ZOVIRAX IV SCH ×3 (03:37→18:01)
[2023-04-29] MEDS: SODIUM CHLORIDE 0.9% IV SCH ×3 (03:37→18:01)
[2023-04-29 05:20] LABS: Hematocrit 43.2 % (42-50); Hemoglobin 13.3 g/dL (12.5-18.0); Mean Cell Volume 92.7 fL (78-100); Mean Corpuscular Hemoglobin 28.5 pg (26-32); Mean Corpuscular Hgb Concent. 30.8 g/dL (32-36); Mean Platelet Volume 9.5 fL (7.5-11.0); Platelet Count 407 x10^3/uL (150-450); Red Blood Count 4.66 x10^6/uL (4.1-5.6); Red Cell Distribution Width 15.9 % (11.5-14.0); White Blood Count 8.4 x10^3/uL (4.0-10.5)
[2023-04-29 05:54] LABS: ANION GAP 12.7 MEQ/L (5-15); BLOOD UREA NITROGEN 13 mg/dL (9-20); CHLORIDE 100 mmol/L (98-107); Calcium 8.4 mg/dL (8.4-10.2); Carbon Dioxide 31 mmol/L (22-30); Creatinine 1 0.81 mg/dL (0.66-1.25); EST GLOMERULAR FILTRATION RATE > 60.0 ML/MIN; Glucose 163 mg/dL (74-106); Potassium 5.1 mmol/L (3.5-5.1); SODIUM 138 mmol/L (137-145)
[2023-04-29] MEDS: MSIR 15 MG PO SCH ×4 (06:14→23:29)
[2023-04-29] MEDS: solu-CORTEF 100MG IV SCH ×3 (06:23→22:42)
[2023-04-29] MEDS: Sodium Chloride 0.9% 1000 ML 1,000 ML IV SCH (07:18)
[2023-04-29] MEDS: Glucophage 500 MG PO SCH ×2 (07:18→16:38)
[2023-04-29] MEDS: Cymbalta 30 MG Capsule PO SCH ×2 (09:11→22:40)
[2023-04-29] MEDS: ECOTRIN 81 MG PO SCH (09:12)
[2023-04-29] MEDS: MINERAL OIL PO SCH ×3 (09:12→22:39)
[2023-04-29] MEDS: Zocor 10MG PO SCH (09:12)
[2023-04-29] MEDS: HUMALOG SQ PRN ×3 (12:12→22:43)
[2023-04-29] MEDS ORDERED: TESTOSTERONE CYPIONATE 100 MG/ML IM SCH (12:30)
[2023-04-29] MEDS ORDERED: MEDICATION INTERVENTION MC SCH (12:45)
[2023-04-29] MEDS: THERAGRAN MULTIVITAMIN PO SCH (13:29)
[2023-04-29] MEDS: Acidophilus TABLET PO SCH (13:29)
[2023-04-29] MEDS ORDERED: TORAdol 30 mg Injection IV ONE (15:45)
--- NOTE | 2023-04-29 17:27 | PCM.NOTE ---
Date and Time: 04/29/23 172 Subjective Assessment: No acute events overnight, although pain was intense enough to require IV Toradol. Pain did improve a little bit from that, and was able to sleep, but is intense again this afternoon. Overall, though, he feels his pain is improving. - Review of Systems Eyes: Vision Changes ([place]) Neurological: Headache, Sensory Changes Objective Exam General Appearance: no apparent distress Neurologic Exam: alert, oriented x 3, normal mood/affect Skin Exam: normal color, No rash Eye Exam: eyes nml inspection Respiratory Exam: normal breath sounds, No lungs clear, No respiratory distress Cardiovascular Exam: regular rate/rhythm, normal heart sounds, No edema Gastrointestinal/Abdomen Exam: soft, No tenderness, No distention OBJECTIVE DATA Vital Signs: Vital Signs - 24 hr Temp Pulse Resp BP Pulse Ox 04/29/23 16:00 97.5 F 91 H 17 117/56 94 L 04/29/23 11:52 97.5 F 105 H 16 117/71 95 04/29/23 08:04 97 04/29/23 07:14 96.4 F 84 18 149/96 97 04/29/23 06:00 16 04/29/23 03:51 97.6 F 87 18 121/74 96 04/28/23 23:39 97.9 F 88 19 141/93 96 04/28/23 20:00 97.8 F 118 H 19 110/58 93 L 04/28/23 19:12 95 Pain Assessment - Last Documented Pain Intensity 7 Pain Scale Used 0-10 Pain Scale Intake and Output: Intake & Output 04/27/23 04/28/23 04/29/23 04/30/23 11:59 11:59 11:59 11:59 Intake Total 1380 2376 480 Output Total 1550 3250 Balance -170 -874 480 Weight 108.862 kg 114.1 kg Lab Results: Lab Results-Last 24 Hours 04/28/23 04/29/23 04/29/23 Range/Units 20:47 04:47 04:47 WBC 8.4 (4.0-10.5) x10^3/uL RBC 4.66 (4.1-5.6) x10^6/uL Hgb 13.3 (12.5-18.0) g/dL Hct 43.2 (42-50) % MCV 92.7 (78-100) fL MCH 28.5 (26-32) pg MCHC 30.8 L (32-36) g/dL RDW 15.9 H (11.5-14.0) % Plt Count 407 (150-450) x10^3/uL MPV 9.5 (7.5-11.0) fL Sodium 138 (137-145) mmol/L Potassium 5.1 (3.5-5.1) mmol/L Chloride 100 (98-107) mmol/L Carbon Dioxide 31 H (22-30) mmol/L Anion Gap 12.7 (5-15) MEQ/L BUN 13 (9-20) mg/dL Creatinine 0.81 (0.66-1.25) mg/dL Estimated GFR > 60.0 ML/MIN Glucose 163 H (74-106) mg/dL POC Glucometer 249 H (74 to 106) mg/dL Calcium 8.4 (8.4-10.2) mg/dL 04/29/23 04/29/23 04/29/23 Range/Units 06:50 11:28 16:19 WBC (4.0-10.5) x10^3/uL RBC (4.1-5.6) x10^6/uL Hgb (12.5-18.0) g/dL Hct (42-50) % MCV (78-100) fL MCH (26-32) pg MCHC (32-36) g/dL RDW (11.5-14.0) % Plt Count (150-450) x10^3/uL MPV (7.5-11.0) fL Sodium (137-145) mmol/L Potassium (3.5-5.1) mmol/L Chloride (98-107) mmol/L Carbon Dioxide (22-30) mmol/L Anion Gap (5-15) MEQ/L BUN (9-20) mg/dL Creatinine (0.66-1.25) mg/dL Estimated GFR ML/MIN Glucose (74-106) mg/dL POC Glucometer 117 H 211 H 218 H (74 to 106) mg/dL Calcium (8.4-10.2) mg/dL Multi-Disciplinary Progress Notes: Multi-Disciplinary Progress Notes 04/29/23 10:27 Case Management Note by Stepro,Martina S/W PATIENT. HE CONTINUES TO DENY ANY NEW NEEDS AT TIME DC. HE PLANS TO RETURN HOME TO HIS PLOF AT TIME OF DC. WILL F/U WITH NEUROLOGIST AT SCHEDULED IN JUN AND F/U WITH PAIN MD FOR IMPLANTED INTRATHECAL PUMP Initialized on 04/29/23 10:27 - END OF NOTE Assessment/Plan (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 Assessment & Plan: 53-year-old man with history of Mollaret syndrome (recurrent aseptic meningitis), DM 2, and hypertension, here with recurrent exacerbation of his chronic meningitis. ## Mollaret syndrome with frequent admissions due to pain and bilateral leg paresthesias. No other neurologic symptoms. Pain only somewhat controlled today. 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 Blood sugars are improved today after starting on Lantus. Continue Lantus 10 units QHS Continue metformin 1000 mg BID Continue high-dose sliding scale insulin protocol ## Hypertension blood pressure controlled. Continue home enalapril 20 mg QHS CODE STATUS: Full code Prophylaxis: Lovenox Dispo: Plan for return to home, once his pain is controlled. Entirety of encounter took place via telemedicine. Patient consented to telemedicine. Code(s): G03.2 - BENIGN RECURRENT MENINGITIS [MOLLARET] Telemedicine Encounter - Telemedicine Encounter Telemedicine Encounter: The entirety of this encounter was performed via Telemedicine"
[2023-04-29] MEDS: Protonix 40MG Tablet PO SCH (22:41)
[2023-04-29] MEDS: Vasotec 10 MG PO SCH (22:41)
[2023-04-29] MEDS: Lantus Insulin SQ SCH (22:42)
[2023-04-29] MEDS: BENADRYL 50 MG/ML IV SCH (23:29)
[2023-04-30] MEDS: SODIUM CHLORIDE 0.9% IV SCH ×3 (04:02→18:00)
[2023-04-30] MEDS: ZOVIRAX IV SCH ×3 (04:02→18:00)
[2023-04-30] MEDS: MSIR 15 MG PO SCH ×4 (05:46→22:59)
[2023-04-30] MEDS: solu-CORTEF 100MG IV SCH ×3 (05:46→21:24)
[2023-04-30] MEDS: Sodium Chloride 0.9% 1000 ML 1,000 ML IV SCH (07:45)
[2023-04-30] MEDS: Glucophage 500 MG PO SCH ×2 (07:58→16:43)
[2023-04-30] MEDS: HUMALOG SQ PRN ×3 (07:58→21:24)
[2023-04-30] MEDS: Cymbalta 30 MG Capsule PO SCH ×2 (09:16→21:23)
[2023-04-30] MEDS: THERAGRAN MULTIVITAMIN PO SCH (09:16)
[2023-04-30] MEDS: Acidophilus TABLET PO SCH (09:17)
[2023-04-30] MEDS: ECOTRIN 81 MG PO SCH (09:17)
[2023-04-30] MEDS: Zocor 10MG PO SCH (09:17)
[2023-04-30] MEDS: MINERAL OIL PO SCH ×3 (09:18→21:23)
[2023-04-30] MEDS ORDERED: XYLOCAINE 1% HCL 20 ML MDV ONE (09:48)
[2023-04-30] MEDS ORDERED: LACTOBACILLUS COMBO NO 10 PO SCH (10:00)
[2023-04-30] MEDS ORDERED: NON-FORMULARY ITEM (Multivitamin [Multi-Vitamin Daily] 1 EACH Tablet) PO SCH (10:00)
[2023-04-30] MEDS: HYDROMORPHONE 30 MG/30 ML-NS PCA IV PRN (12:17)
--- NOTE | 2023-04-30 14:37 | PCM.NOTE ---
Date and Time: 04/30/23 1433 Subjective Assessment: Last night, patient's IV infiltrated, and failed multiple repeat attempts to place new IV. While off his PHARMACY TECHNICIAN, he developed worsening headache pain. Had midline catheter placed this morning, and pain is starting to get controlled again, although still not as controlled as it was before IV came out. Continues to have bilateral leg paresthesias and some mild vision blurring. Objective Exam General Appearance: no apparent distress, other Neurologic Exam: alert Skin Exam: No rash Eye Exam: eyes nml inspection Respiratory Exam: normal breath sounds, lungs clear, No respiratory distress Cardiovascular Exam: regular rate/rhythm, No murmur, No edema Gastrointestinal/Abdomen Exam: soft, No tenderness, No distention OBJECTIVE DATA Vital Signs: Vital Signs - 24 hr Temp Pulse Resp BP Pulse Ox 04/30/23 12:17 16 04/30/23 11:54 97.2 F 97 H 17 134/86 94 L 04/30/23 07:47 93 L 04/30/23 07:09 97.3 F 89 16 152/71 97 04/30/23 06:00 20 97 04/30/23 04:00 95 04/30/23 02:00 20 94 L 04/30/23 00:37 20 94 L 04/30/23 00:00 98.4 F 99 H 20 129/83 04/29/23 23:49 98.1 F 75 20 141/74 97 04/29/23 22:00 20 04/29/23 20:37 19 94 L 04/29/23 19:41 98.4 F 99 H 19 129/83 94 L 04/29/23 19:35 97 04/29/23 18:00 16 95 04/29/23 16:00 97.5 F 91 H 17 117/56 94 L Pain Assessment - Last Documented Pain Intensity 7 Pain Scale Used 0-10 Pain Scale Intake and Output: Intake & Output 04/28/23 04/29/23 04/30/23 05/01/23 11:59 11:59 11:59 11:59 Intake Total 1380 2376 2842 240 Output Total 1550 3250 1700 Balance -170 874 1142 240 Weight 108.862 kg 114.1 kg 115.8 kg Lab Results: Lab Results-Last 24 Hours 04/29/23 04/29/23 04/30/23 Range/Units 16:19 20:50 06:51 POC Glucometer 218 H 270 H 163 H (74 to 106) mg/dL 04/30/23 Range/Units 11:34 POC Glucometer 144 H (74 to 106) mg/dL Multi-Disciplinary Progress Notes: Multi-Disciplinary Progress Notes 04/30/23 10:58 Case Management Note by Martina Moreno S/W PATIENT. HE CONTINUES TO DENY ANY NEW NEEDS AT TIME OF DC. HE PLANS TO GO HOME AT HIS PLOF AT TIME OF DC TO HIM MOM AND STEP-DAD'S HOUSE. 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 ## Mollaret syndrome with frequent admissions due to pain and bilateral leg paresthesias. No other neurologic symptoms. Pain uncontrolled today after IV infiltrated overnight. Now with midline catheter. Continue Dilaudid PHARMACY TECHNICIAN Continue acyclovir 1000 mg q.8 hourly Continue hydrocortisone 100 mg IV q.8 hour Continue Cymbalta 60 mg BID for paresthesias At discharge, follow-up with his neurologist on 06/03 ## Type 2 diabetes uncontrolled, with hemoglobin A1c of 7.6, secondary to frequent use of steroids during his admissions for Mollaret syndrome. Blood sugars are improved after starting on Lantus. Continue Lantus 10 units QHS Continue metformin 1000 mg BID Continue high-dose sliding scale insulin protocol ## Hypertension blood pressure controlled. Continue home enalapril 20 mg QHS CODE STATUS: Full code Prophylaxis: Lovenox Dispo: Plan for return to home, once his pain is controlled. Code(s): G03.2 - BENIGN RECURRENT MENINGITIS [MOLLARET] Telemedicine Encounter - Telemedicine Encounter Telemedicine Encounter: The entirety of this encounter was performed via Telemedicine"
[2023-04-30] MEDS: Vasotec 10 MG PO SCH (21:23)
[2023-04-30] MEDS: Protonix 40MG Tablet PO SCH (21:23)
[2023-04-30] MEDS: Lantus Insulin SQ SCH (21:24)
[2023-04-30] MEDS: BENADRYL 50 MG/ML IV SCH (22:59)
[2023-05-01] MEDS: Sodium Chloride 0.9% 1000 ML 1,000 ML IV SCH (02:05)
[2023-05-01] MEDS: ZOVIRAX IV SCH ×3 (02:05→17:42)
[2023-05-01] MEDS: SODIUM CHLORIDE 0.9% IV SCH ×3 (02:05→17:42)
[2023-05-01] MEDS: HYDROMORPHONE 30 MG/30 ML-NS PCA IV PRN ×2 (04:15→19:06)
[2023-05-01 05:29] LABS: ANION GAP 9.9 MEQ/L (5-15); BLOOD UREA NITROGEN 10 mg/dL (9-20); CHLORIDE 100 mmol/L (98-107); Calcium 8.2 mg/dL (8.4-10.2); Carbon Dioxide 32 mmol/L (22-30); Creatinine 1 0.74 mg/dL (0.66-1.25); EST GLOMERULAR FILTRATION RATE > 60.0 ML/MIN; Glucose 178 mg/dL (74-106); SODIUM 138 mmol/L (137-145)
[2023-05-01] MEDS: solu-CORTEF 100MG IV SCH ×3 (05:30→21:51)
[2023-05-01] MEDS: MSIR 15 MG PO SCH ×4 (05:30→23:07)
[2023-05-01] MEDS: Glucophage 500 MG PO SCH ×2 (07:28→16:57)
[2023-05-01] MEDS: Zocor 10MG PO SCH (08:58)
[2023-05-01] MEDS: MINERAL OIL PO SCH ×3 (08:58→21:53)
[2023-05-01] MEDS: Acidophilus TABLET PO SCH (08:58)
[2023-05-01] MEDS: THERAGRAN MULTIVITAMIN PO SCH (08:58)
[2023-05-01] MEDS: ECOTRIN 81 MG PO SCH (08:58)
[2023-05-01] MEDS: Cymbalta 30 MG Capsule PO SCH ×2 (08:58→21:51)
[2023-05-01] MEDS: HUMALOG SQ PRN ×3 (11:45→21:52)
--- NOTE | 2023-05-01 12:27 | PCM.DS ---
Discharge Summary Date of Admission: 04/28/23 13:00 Date of Discharge: 05/01/23 Admitting Physician: DARIUS HEAD MD Primary Care Provider: ANN ALEXIS Allergies Allergies pregabalin [From Lyrica] Adverse Reaction (Severe, Verified 04/27/23 17:19) Hives SOB hives azithromycin [From Zmax] Adverse Reaction (Mild, Verified 04/27/23 17:19) vomiting Hospital Summary - Hospital Course Hospital Course: Recurrent headache syndrome, improved with SHEAR SETTER. Plan to discharge patient this afternoon with outpatient follow up. - Vitals & Intake/Output Vital Signs: Vital Signs Temperature 98.2 F 05/01/23 12:00 Pulse Rate 92 H 05/01/23 12:00 Respiratory Rate 16 05/01/23 12:00 Blood Pressure 144/76 05/01/23 12:00 O2 Sat by Pulse Oximetry 98 05/01/23 12:00 Intake & Output: Intake & Output 04/29/23 04/30/23 05/01/23 05/02/23 11:59 11:59 11:59 11:59 Intake Total 2376 2842 4057 Output Total 3250 1700 4500 Balance -874 1142 -443 Weight 114.1 kg 115.8 kg 115.9 kg - Lab Result Diagrams: 04/29/23 04:47 05/01/23 04:12 Lab Results-Last 24 Hrs: Lab Results-Last 24 Hours 04/30/23 04/30/23 05/01/23 Range/Units 16:34 20:41 04:12 Sodium 138 (137-145) mmol/L Potassium 4.0 D (3.5-5.1) mmol/L Chloride 100 (98-107) mmol/L Carbon Dioxide 32 H (22-30) mmol/L Anion Gap 9.9 (5-15) MEQ/L BUN 10 (9-20) mg/dL Creatinine 0.74 (0.66-1.25) mg/dL Estimated GFR > 60.0 ML/MIN Glucose 178 H (74-106) mg/dL POC Glucometer 276 H 270 H (74 to 106) mg/dL Calcium 8.2 L (8.4-10.2) mg/dL 05/01/23 05/01/23 Range/Units 07:15 11:28 Sodium (137-145) mmol/L Potassium (3.5-5.1) mmol/L Chloride (98-107) mmol/L Carbon Dioxide (22-30) mmol/L Anion Gap (5-15) MEQ/L BUN (9-20) mg/dL Creatinine (0.66-1.25) mg/dL Estimated GFR ML/MIN Glucose (74-106) mg/dL POC Glucometer 129 H 173 H (74 to 106) mg/dL Calcium (8.4-10.2) mg/dL Micro Results-Entire Visit: Accuchecks Date 05/01/23 Date 05/01/23 Date 04/30/23 Date 04/30/23 Time 11:59 Time 07:23 Time 20:45 Time 16:47 Discharge Exam General Appearance: no apparent distress, alert Neurologic Exam: alert, oriented x 3, cooperative, 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 tested, normal mood/affect, nml cerebellar function Eye Exam: PERRL, EOMI, eyes nml inspection Ears, Nose, Throat Exam: normal ENT inspection, TMs normal Neck Exam: normal inspection, non-tender, supple, full range of motion Respiratory Exam: normal breath sounds, lungs clear Cardiovascular Exam: regular rate/rhythm, normal heart sounds Gastrointestinal/Abdomen Exam: soft Back Exam: normal range of motion Extremity Exam: normal inspection, normal range of motion Skin Exam: normal color Final Diagnosis/Problem List - Final Discharge Diagnosis/Problem (1) Chronic pain syndrome Current Visit: No Status: Chronic Assessment & Plan: Recurrent headache syndrome, improved with SHEAR SETTER. Plan to discharge patient this afternoon with outpatient follow up. Code(s): G89.4 - CHRONIC PAIN SYNDROME Telemedicine Encounter - Telemedicine Encounter Telemedicine Encounter: The entirety of this encounter was performed via Telemedicine" - Discharge Disposition: Home, Self-Care Condition: Stable Prescriptions: Continue Enalapril Maleate 10 mg [Vasotec 10 MG] 20 mg PO HS Multivitamin [Multi-Vitamin Daily] 1 each PO DAILY Aspirin 81 mg PO DAILY Testosterone Cypionate 0.75 ml IM UD Duloxetine HCl [Cymbalta] 60 mg PO BID Metformin HCl 500 mg [Glucophage 500 MG] 1,000 mg PO BIDWM Atorvastatin Calcium [Lipitor] 10 mg PO HS Morphine Sulfate Ir 15 mg [Msir 15 mg] 15 mg PO 0600,1200,1800,0000 Mineral Oil 30 ml PO TID Esomeprazole Magnesium [Nexium 24Hr] 40 mg PO HS Lactobacillus Combo No.10 [Probiotic] 1 each PO DAILY Prednisone 10 mg [Deltasone 10 mg] 15 mg PO DAILY Prednisone 20 mg [Deltasone 20 mg] 20 mg PO DAILY #12 tablet Acyclovir [Zovirax] 800 mg PO 5XD #500 ml Instructions: Aseptic Meningitis (DC) Follow up with: CORETTA SCHAFFER [NON-STAFF PHY W/O PRIVILEGES] - ANN ALEXIS MD [Primary Care Provider] - 05/07/23 10:45 am DAMARI PATEL [CONSULTING PHYSICIAN] -
--- NOTE | 2023-05-01 14:57 | PCM.NOTE ---
Date and Time: 05/01/23 1453 Subjective Assessment: Headache improved but not ready for discharge today. 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7 F 76 20 104/56 97 05/01/23 01:35 16 99 04/30/23 23:26 98.6 F 91 H 20 136/90 100 04/30/23 21:35 16 96 04/30/23 19:33 97.8 F 106 H 20 118/59 95 04/30/23 19:05 97 04/30/23 18:00 18 95 04/30/23 16:00 97.1 F 87 17 132/73 94 L Pain Assessment - Last Documented Pain Intensity 6 Pain Scale Used 0-10 Pain Scale Intake and Output: Intake & Output 04/29/23 04/30/23 05/01/23 05/02/23 11:59 11:59 11:59 11:59 Intake Total 2376 2842 4057 1200 Output Total 3250 1700 4500 600 Balance -874 1142 -443 600 Weight 114.1 kg 115.8 kg 115.9 kg Lab Results: Lab Results-Last 24 Hours 04/30/23 04/30/23 05/01/23 Range/Units 16:34 20:41 04:12 Sodium 138 (137-145) mmol/L Potassium 4.0 D (3.5-5.1) mmol/L Chloride 100 (98-107) mmol/L Carbon Dioxide 32 H (22-30) mmol/L Anion Gap 9.9 (5-15) MEQ/L BUN 10 (9-20) mg/dL Creatinine 0.74 (0.66-1.25) mg/dL Estimated GFR > 60.0 ML/MIN Glucose 178 H (74-106) mg/dL POC Glucometer 276 H 270 H (74 to 106) mg/dL Calcium 8.2 L (8.4-10.2) mg/dL 05/01/23 05/01/23 Range/Units 07:15 11:28 Sodium (137-145) mmol/L Potassium (3.5-5.1) mmol/L Chloride (98-107) mmol/L Carbon Dioxide (22-30) mmol/L Anion Gap (5-15) MEQ/L BUN (9-20) mg/dL Creatinine (0.66-1.25) mg/dL Estimated GFR ML/MIN Glucose (74-106) mg/dL POC Glucometer 129 H 173 H (74 to 106) mg/dL Calcium (8.4-10.2) mg/dL Multi-Disciplinary Progress Notes: Multi-Disciplinary Progress Notes 05/01/23 11:17 Case Management Note by Veronica Conroy PATIENT PLANNING TO D/C THIS AFTERNOON. DISCUSSED D/C PLAN, PT INDEPENDENT, LIVES WITH SIG OTHER. PT DENIES ANY NEEDS AT THIS TIME. Initialized on 05/01/23 11:17 - END OF NOTE Assessment/Plan (1) Chronic pain syndrome Current Visit: No Status: Chronic Assessment & Plan: Improved but will need continued analgesia. Can target potential discharge tomorrow. Code(s): G89.4 - CHRONIC PAIN SYNDROME Telemedicine Encounter - Telemedicine Encounter Telemedicine Encounter: The entirety of this encounter was performed via Telemedicine"
[2023-05-01] MEDS: Vasotec 10 MG PO SCH (21:52)
[2023-05-01] MEDS: Protonix 40MG Tablet PO SCH (21:52)
[2023-05-01] MEDS: Lantus Insulin SQ SCH (21:53)
[2023-05-01] MEDS: BENADRYL 50 MG/ML IV SCH (23:07)
[2023-05-02] MEDS: SODIUM CHLORIDE 0.9% IV SCH ×2 (02:10→10:41)
[2023-05-02] MEDS: ZOVIRAX IV SCH ×2 (02:10→10:41)
[2023-05-02] MEDS: solu-CORTEF 100MG IV SCH (05:12)
[2023-05-02] MEDS: MSIR 15 MG PO SCH ×2 (05:12→11:23)
[2023-05-02] MEDS: Glucophage 500 MG PO SCH (07:33)
--- NOTE | 2023-05-02 07:40 | PCM.HP ---
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 He was recently ad,itted with headaches and discharged three days ago. He returns with identical symptoms and headaches and pain of 9/10 in intensity: There is no neck rigidity: He does report some light sensitivity: but denies any focal weakness, difficulty speaking, difficulty swallowing, or altered gait: He does follow with a neurologist: This is his second flair in one month - Review of Systems Constitutional: Fatigue Eyes: Photophobia Ears, Nose, & Throat: No Symptoms Respiratory: No Symptoms Cardiac: No Symptoms Abdominal/Gastrointestinal: No Symptoms Genitourinary Symptoms: No Symptoms Musculoskeletal: No Symptoms Skin: No Symptoms Neurological: Headache Psychological: No Symptoms Endocrine: No Symptoms Hematologic/Lymphatic: No Symptoms Medications & Allergies Home Medications: Home Medication List Aspirin 81 mg PO DAILY 01/24/14 [History Confirmed 04/27/23] Enalapril Maleate 10 mg [Vasotec 10 MG] 20 mg PO HS 01/24/14 [History Confirmed 04/27/23] Multivitamin [Multi-Vitamin Daily] 1 each PO DAILY 01/24/14 [History Confirmed 04/27/23] Testosterone Cypionate 0.75 ml IM UD 10/09/14 [History Confirmed 04/27/23] Duloxetine HCl [Cymbalta] 60 mg PO BID 04/23/15 [History Confirmed 04/27/23] Metformin HCl 500 mg [Glucophage 500 MG] 1,000 mg PO BIDWM 04/20/20 [History Confirmed 04/27/23] Atorvastatin Calcium [Lipitor] 10 mg PO HS 01/06/22 [History Confirmed 04/27/23] Morphine Sulfate Ir 15 mg [Msir 15 mg] 15 mg PO 0600,1200,1800,0000 02/07/22 [History Confirmed 04/27/23] Mineral Oil 30 ml PO TID 10/30/22 [History Confirmed 04/27/23] Esomeprazole Magnesium [Nexium 24Hr] 40 mg PO HS 12/25/22 [History Confirmed 04/27/23] Lactobacillus Combo No.10 [Probiotic] 1 each PO DAILY 03/25/23 [History Confirmed 04/27/23] Prednisone 10 mg [Deltasone 10 mg] 15 mg PO DAILY 04/18/23 [History Confirmed 04/27/23] Acyclovir [Zovirax] 800 mg PO 5XD #500 ml 04/24/23 [Rx Confirmed 04/27/23] Prednisone 20 mg [Deltasone 20 mg] 20 mg PO DAILY #12 tablet 04/24/23 [Rx Confirmed 04/27/23] Allergies/Adverse Reactions: Allergies Allergy/AdvReac Type Severity Reaction Status Date / Time pregabalin [From Lyrica] AdvReac Severe Hives Verified 04/27/23 17:19 azithromycin [From Zmax] AdvReac Mild Verified 04/27/23 17:19 - Past Medical History Past Medical History: Yes Neurological History: Paralysis, Seizures ENT History: No Pertinent History Cardiac History: High Cholesterol, Hypertension Respiratory History: Sleep Apnea Endocrine Medical History: Diabetes Type II Musculoskelatal History: No Pertinent History GI Medical History: No Pertinent History History: No Pertinent History Pyscho-Social History: Depression Male Reproductive Disorders: No Pertinent History Comment: Mollaret's, spleen removed - Past Surgical History Past Surgical History: Yes Neuro Surgical History: No Pertinent History Cardiac History: No Pertinent History Respiratory Surgery: No Pertinent History GI Surgical History: Appendectomy, Other Genitourinary Surgical Hx: No Pertinent History Musculskeletal Surgical Hx: No Pertinent History Male Surgical History: Vasectomy Other Surgical History: CONSIDERED PRE-DIABETIC DUE STEROIDS. SPLENECTOMY 1988 - Social History Smoking Status: Never smoker Exposure to second hand smoke: No Alcohol: None Drug Use: none Significant Family History: no pertinent family hx - Physical Exam Vital Signs: Vital Signs - 24 hr Temp Pulse Resp BP BP Pulse Ox 05/02/23 06:00 16 97 05/02/23 05:00 97.7 F 72 16 120/67 97 05/02/23 03:06 16 97 05/02/23 02:00 16 96 05/02/23 00:00 98 F 83 18 151/84 95 05/01/23 23:54 98 05/01/23 23:06 18 95 05/01/23 22:00 18 95 05/01/23 20:00 98.5 F 101 H 18 142/82 96 05/01/23 19:06 95 05/01/23 17:49 95 05/01/23 17:46 16 95 05/01/23 16:00 97.1 F 75 16 134/86 94 L 05/01/23 12:00 98.2 F 92 H 16 144/76 98 General Appearance: moderate distress Neurologic Exam: alert, oriented x 3, 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, 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 Eye Exam: eyes nml inspection Neck Exam: full range of motion Respiratory Exam: normal breath sounds Cardiovascular Exam: regular rate/rhythm, normal heart sounds Gastrointestinal/Abdomen Exam: soft Extremity Exam: normal inspection Results - Labs Lab/Micro Results: Lab Results-Last 24 Hours 05/01/23 05/01/23 05/01/23 Range/Units 11:28 16:07 21:42 POC Glucometer 173 H 293 H 244 H (74 to 106) mg/dL Accuchecks Date 05/01/23 Date 05/01/23 Date 05/01/23 Time 16:07 Time 16:07 Time 11:59 Assessment/Plan (1) Mollaret's meningitis Current Visit: Yes Status: Chronic Assessment & Plan: Recurrent severe headache without focal signs 2/2 Mollaret PLAN: 1: pain control with HATCHERY MANAGER pump and PRN breakthrough hydromorphone 2: consult neurology if pain not controlled with these measures 3: Acyclovir therapy 4: will defer any head imaging for now given identical recurrent sy,pto,s and absence of focal findings Code(s): G03.2 - BENIGN RECURRENT MENINGITIS [MOLLARET] Telemedicine Encounter - Telemedicine Encounter Telemedicine Encounter: The entirety of this encounter was performed via Telemedicine"
--- NOTE | 2023-05-02 07:51 | TM.IN ---
Tele-Medicine Incident Note - Incident Note Tel-Medicine Incident Note: 05/02/23 0750 TELE-MED Discharge Summary Patient Name: DEBRA WHARTON Date of : 74 Patient Status: Inpatient Attending Provider: ANN ALEXIS Date: 05/01/23 12:25 Initialization Date: 05/01/23 12:25 Discharge Summary Date of Admission: 04/28/23 13:00 Date of Discharge: 05/01/23 Admitting Physician: DARIUS HEAD MD Primary Care Provider: ANN ALEXIS Allergies Allergies pregabalin [From Lyrica] Adverse Reaction (Severe, Verified 04/27/23 17:19) Hives SOB hives azithromycin [From Zmax] Adverse Reaction (Mild, Verified 04/27/23 17:19) vomiting Hospital Summary - Hospital Course Hospital Course: Recurrent headache syndrome, improved with AREA COORDINATOR. Plan to discharge patient this afternoon with outpatient follow up. - Vitals & Intake/Output Vital Signs: Vital Signs Temperature 98.2 F 05/01/23 12:00 Pulse Rate 92 H 05/01/23 12:00 Respiratory Rate 16 05/01/23 12:00 Blood Pressure 144/76 05/01/23 12:00 O2 Sat by Pulse Oximetry 98 05/01/23 12:00 Intake & Output: Intake & Output 04/29/23 04/30/23 05/01/23 05/02/23 11:59 11:59 11:59 11:59 Intake Total 2376 2842 4057 Output Total 3250 1700 4500 Balance -874 1142 -443 Weight 114.1 kg 115.8 kg 115.9 kg - Lab Result Diagrams: 04/29/23 04:47 05/01/23 04:12 Lab Results-Last 24 Hrs: Lab Results-Last 24 Hours 04/30/23 04/30/23 05/01/23 Range/Units 16:34 20:41 04:12 Sodium 138 (137-145) mmol/L Potassium 4.0 D (3.5-5.1) mmol/L Chloride 100 (98-107) mmol/L Carbon Dioxide 32 H (22-30) mmol/L Anion Gap 9.9 (5-15) MEQ/L BUN 10 (9-20) mg/dL Creatinine 0.74 (0.66-1.25) mg/dL Estimated GFR > 60.0 ML/MIN Glucose 178 H (74-106) mg/dL POC Glucometer 276 H 270 H (74 to 106) mg/dL Calcium 8.2 L (8.4-10.2) mg/dL 05/01/23 05/01/23 Range/Units 07:15 11:28 Sodium (137-145) mmol/L Potassium (3.5-5.1) mmol/L Chloride (98-107) mmol/L Carbon Dioxide (22-30) mmol/L Anion Gap (5-15) MEQ/L BUN (9-20) mg/dL Creatinine (0.66-1.25) mg/dL Estimated GFR ML/MIN Glucose (74-106) mg/dL POC Glucometer 129 H 173 H (74 to 106) mg/dL Calcium (8.4-10.2) mg/dL Micro Results-Entire Visit: Accuchecks Date 05/01/23 Date 05/01/23 Date 04/30/23 Date 04/30/23 Time 11:59 Time 07:23 Time 20:45 Time 16:47 Discharge Exam General Appearance: no apparent distress, alert Neurologic Exam: alert, oriented x 3, 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, 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, normal mood/affect, nml cerebellar function Eye Exam: PERRL, EOMI, eyes nml inspection Ears, Nose, Throat Exam: normal ENT inspection, TMs normal Neck Exam: normal inspection, non-tender, supple, full range of motion Respiratory Exam: normal breath sounds, lungs clear Cardiovascular Exam: regular rate/rhythm, normal heart sounds Gastrointestinal/Abdomen Exam: soft Back Exam: normal range of motion Extremity Exam: normal inspection, normal range of motion Skin Exam: normal color Final Diagnosis/Problem List - Final Discharge Diagnosis/Problem (1) Chronic pain syndrome Current Visit: No Status: Chronic Assessment & Plan: Recurrent headache syndrome, improved with AREA COORDINATOR. Plan to discharge patient this afternoon with outpatient follow up. Code(s): G89.4 - CHRONIC PAIN SYNDROME Telemedicine Encounter - Telemedicine Encounter Telemedicine Encounter: The entirety of this encounter was performed via Telemedicine" - Discharge Disposition: Home, Self-Care Condition: Stable Prescriptions: Continue Enalapril Maleate 10 mg [Vasotec 10 MG] 20 mg PO HS Multivitamin [Multi-Vitamin Daily] 1 each PO DAILY Aspirin 81 mg PO DAILY Testosterone Cypionate 0.75 ml IM UD Duloxetine HCl [Cymbalta] 60 mg PO BID Metformin HCl 500 mg [Glucophage 500 MG] 1,000 mg PO BIDWM Atorvastatin Calcium [Lipitor] 10 mg PO HS Morphine Sulfate Ir 15 mg [Msir 15 mg] 15 mg PO 0600,1200,1800,0000 Mineral Oil 30 ml PO TID Esomeprazole Magnesium [Nexium 24Hr] 40 mg PO HS Lactobacillus Combo No.10 [Probiotic] 1 each PO DAILY Prednisone 10 mg [Deltasone 10 mg] 15 mg PO DAILY Prednisone 20 mg [Deltasone 20 mg] 20 mg PO DAILY #12 tablet Acyclovir [Zovirax] 800 mg PO 5XD #500 ml Instructions: Aseptic Meningitis (DC) Follow up with: CORETTA SCHAFFER [NON-STAFF PHY W/O PRIVILEGES] - ANN ALEXIS MD [Primary Care Provider] - 05/07/23 10:45 am DAMARI PATEL [CONSULTING PHYSICIAN] - Additional CC's: CORETTA PATEL Telemedicine Encounter - Telemedicine Encounter Telemedicine Encounter: The entirety of this encounter was performed via Telemedicine"
--- NOTE | 2023-05-02 07:59 | PCM.DS ---
Discharge Summary Date of Admission: 04/28/23 13:00 Date of Discharge: 02 May 2023 Admitting Physician: DARIUS HEAD MD Primary Care Provider: ANN ALEXIS Allergies Allergies pregabalin [From Lyrica] Adverse Reaction (Severe, Verified 04/27/23 17:19) Hives SOB hives azithromycin [From Zmax] Adverse Reaction (Mild, Verified 04/27/23 17:19) vomiting Hospital Summary - Vitals & Intake/Output Vital Signs: Vital Signs Temperature 97.7 F 05/02/23 05:00 Pulse Rate 72 05/02/23 05:00 Respiratory Rate 16 05/02/23 06:00 Blood Pressure 120/67 05/02/23 05:00 O2 Sat by Pulse Oximetry 97 05/02/23 06:00 Intake & Output: Intake & Output 04/29/23 04/30/23 05/01/23 05/02/23 11:59 11:59 11:59 11:59 Intake Total 2376 2842 4057 4830 Output Total 3250 1700 4500 4750 Balance -874 1142 -443 80 Weight 114.1 kg 115.8 kg 115.9 kg - Lab Result Diagrams: 04/29/23 04:47 05/01/23 04:12 Lab Results-Last 24 Hrs: Lab Results-Last 24 Hours 05/01/23 05/01/23 05/01/23 Range/Units 11:28 16:07 21:42 POC Glucometer 173 H 293 H 244 H (74 to 106) mg/dL 05/02/23 Range/Units 07:48 POC Glucometer 169 H (74 to 106) mg/dL Micro Results-Entire Visit: Accuchecks Date 05/01/23 Date 05/01/23 Date 05/01/23 Time 16:07 Time 16:07 Time 11:59 Discharge Exam Neurologic Exam: alert, oriented x 3, 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, 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 Eye Exam: eyes nml inspection Neck Exam: full range of motion Respiratory Exam: normal breath sounds, chest tenderness, lungs clear Cardiovascular Exam: regular rate/rhythm, normal heart sounds Final Diagnosis/Problem List - Final Discharge Diagnosis/Problem (1) Mollaret's meningitis Current Visit: Yes Status: Chronic Code(s): G03.2 - BENIGN RECURRENT MENINGITIS [MOLLARET] (2) Diabetes mellitus Current Visit: No Status: Chronic Code(s): E11.9 - TYPE 2 DIABETES MELLITUS WITHOUT COMPLICATIONS Telemedicine Encounter - Telemedicine Encounter Telemedicine Encounter: The entirety of this encounter was performed via Telemedicine" - Discharge Disposition: Home, Self-Care Condition: Stable Prescriptions: Continue Enalapril Maleate 10 mg [Vasotec 10 MG] 20 mg PO HS Multivitamin [Multi-Vitamin Daily] 1 each PO DAILY Aspirin 81 mg PO DAILY Testosterone Cypionate 0.75 ml IM UD Duloxetine HCl [Cymbalta] 60 mg PO BID Metformin HCl 500 mg [Glucophage 500 MG] 1,000 mg PO BIDWM Atorvastatin Calcium [Lipitor] 10 mg PO HS Morphine Sulfate Ir 15 mg [Msir 15 mg] 15 mg PO 0600,1200,1800,0000 Mineral Oil 30 ml PO TID Esomeprazole Magnesium [Nexium 24Hr] 40 mg PO HS Lactobacillus Combo No.10 [Probiotic] 1 each PO DAILY Prednisone 10 mg [Deltasone 10 mg] 15 mg PO DAILY Prednisone 20 mg [Deltasone 20 mg] 20 mg PO DAILY #12 tablet Acyclovir [Zovirax] 800 mg PO 5XD #500 ml Instructions: Aseptic Meningitis (DC) Follow up with: CORETTA SCHAFFER [NON-STAFF PHY W/O PRIVILEGES] - ANN ALEXIS MD [Primary Care Provider] - 05/07/23 10:45 am DAMARI PATEL [CONSULTING PHYSICIAN] -
[2023-05-02 08:09] VITALS: BP 142/87; PULSE 76
[2023-05-02] MEDS: Cymbalta 30 MG Capsule PO SCH (09:40)
[2023-05-02] MEDS: Zocor 10MG PO SCH (09:40)
[2023-05-02] MEDS: ECOTRIN 81 MG PO SCH (09:40)
[2023-05-02] MEDS: Acidophilus TABLET PO SCH (09:40)
[2023-05-02] MEDS: MINERAL OIL PO SCH (09:41)
[2023-05-02] MEDS: THERAGRAN MULTIVITAMIN PO SCH (09:50)
[2023-05-02] MEDS: HUMALOG SQ PRN (11:23)
[2023-05-02 12:07] VITALS: O2SAT 95
== END 2023-05-02 12:04 | disposition home or self-care (01) | DRG 76 ==
LOC: ED 17:08 → MED SURG 19:40 → OBSVTOIN 04-28 13:00
PROVIDERS: ADMIT Internal Medicine; ATTEND Family Medicine
DX: G03.2 Benign recurrent meningitis [Mollaret] (principal); E11.9 Type 2 diabetes mellitus without complications; I10 Essential (primary) hypertension; E78.5 Hyperlipidemia, unspecified; K21.9 Gastro-esophageal reflux disease without esophagitis; G89.4 Chronic pain syndrome; Z79.899 Other long term (current) drug therapy; Z20.828 Contact with and (suspected) exposure to other viral communicable diseases
CPT/HCPCS: 36000; 36415; 80047; 80048; 80053; 82040; 82247; 82947; 83521; 83605; 84075; 84450; 84460; 85025; 85027; 93268; 94762; 96365; 96374; 96375; 99285; J0133; J1170; J1200; J1720; J1815; J1817; J1885; J2405; Q3014; A9270-GY; G0378

== ENCOUNTER 2023-06-16 15:46 | Observation (INO) | payer BC, MEDICARE ==
--- NOTE | 2023-06-16 16:34 | ERPHSYRPT ---
- History of Present Illness Time Seen by Provider: 06/16/23 16:33 Source: patient Exam Limitations: no limitations Patient Subjective Stated Complaint: Pt states "I am having another flair up. The pain is in my neck going down my back and into my legs." Triage Nursing Assessment: Pt presented alert and oriented X 3, skin pwd. Pt ambulates with an upright steady gait, able to speak in clear full sentences. Pt resting comfortably on the bed. 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 Patient's current symptomology is typical of his Mollaret's flareup. Patient typically gets hydrocortisone acyclovir and pain medication. No nausea vomiting or diaphoresis. No trauma. No fever. No neurological symptomology. Symptoms are mild to moderate in intensity. No specific worsening improving factors. Patient voices no other complaints or concerns at this time. Portions of this note were created with voice recognition technology. There may be grammatical, spelling, punctuation or sound alike errors Timing/Duration: today Severity: moderate Modifying Factors: Improves With: nothing Associated Symptoms: denies symptoms Allergies/Adverse Reactions: pregabalin [From Lyrica] Adverse Reaction (Severe, Verified 05/20/23 17:35) Hives SOB hives azithromycin [From Zmax] Adverse Reaction (Mild, Verified 05/20/23 17:35) vomiting Home Medications: Aspirin 81 mg PO DAILY 01/24/14 [History] Enalapril Maleate 10 mg [Vasotec 10 MG] 20 mg PO HS 01/24/14 [History] Multivitamin [Multi-Vitamin Daily] 1 each PO DAILY 01/24/14 [History] Testosterone Cypionate 1.25 ml IM UD 10/09/14 [History] Duloxetine HCl [Cymbalta] 60 mg PO BID 04/23/15 [History] Metformin HCl 500 mg [Glucophage 500 MG] 1,000 mg PO BIDWM 04/20/20 [History] Atorvastatin Calcium [Lipitor] 10 mg PO HS 01/06/22 [History] Morphine Sulfate Ir 15 mg [Msir 15 mg] 15 mg PO 0600,1200,1800,0000 02/07/22 [History] Mineral Oil 30 ml PO TID 10/30/22 [History] Esomeprazole Magnesium [Nexium 24Hr] 40 mg PO HS 12/25/22 [History] Lactobacillus Combo No.10 [Probiotic] 2 each PO DAILY 03/25/23 [History] Prednisone 5 mg [Deltasone 5 mg] 15 mg PO DAILY 05/20/23 [History] Hx Tetanus, Diphtheria Vaccination/Date Given: Yes Hx Influenza Vaccination/Date Given: No Hx Pneumococcal Vaccination/Date Given: Yes Immunizations Up to Date: Yes Travel Risk - International Travel Have you traveled outside of the country in past 3 weeks: No - Coronavirus Screening Are you exhibiting any of the following symptoms?: No Close contact with a COVID-19 positive Pt in past 14-21 Days: No - Vaccine Status Have you recieved a Covid-19 vaccination: Yes 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 - Review of Systems Constitutional: No Symptoms, No Fever, No Chills Eyes: No Symptoms Ears, Nose, & Throat: No Symptoms Respiratory: No Symptoms, No Cough, No Dyspnea Cardiac: No Symptoms, No Chest Pain, No Edema, No Syncope Abdominal/Gastrointestinal: No Symptoms, No Abdominal Pain, No Nausea, No Vomiting, No Diarrhea Genitourinary Symptoms: No Symptoms, No Dysuria Musculoskeletal: No Symptoms, No Back Pain, No Neck Pain Skin: No Symptoms, No Rash Neurological: No Symptoms, No Dizziness, No Focal Weakness, No Sensory Changes Psychological: No Symptoms Endocrine: No Symptoms Hematologic/Lymphatic: No Symptoms Immunological/Allergic: No Symptoms All Other Systems: Reviewed and Negative - Past Medical History Pertinent Past Medical History: Yes Neurological History: Paralysis, Seizures ENT History: No Pertinent History Cardiac History: High Cholesterol, Hypertension Respiratory History: Sleep Apnea Endocrine Medical History: Diabetes Type II Musculoskeletal History: No Pertinent History GI Medical History: No Pertinent History History: No Pertinent History Psycho-Social History: Depression Male Reproductive Disorders: No Pertinent History Other Medical History: Mollaret's, spleen removed - Past Surgical History Past Surgical History: Yes Neuro Surgical History: No Pertinent History Cardiac: No Pertinent History Respiratory: No Pertinent History Gastrointestinal: Appendectomy, Other Genitourinary: No Pertinent History Musculoskeletal: No Pertinent History Male Surgical History: Vasectomy Other Surgical History: CONSIDERED PRE-DIABETIC DUE STEROIDS. SPLENECTOMY 1988 - Social History Smoking Status: Never smoker Exposure to second hand smoke: No Alcohol Use: None Drug Use: none Patient Lives Alone: No Significant Family History: no pertinent family hx - Nursing Vital Signs Nursing Vital Signs: Initial Vital Signs Temperature 97.5 F 06/16/23 15:51 Pulse Rate 99 H 06/16/23 15:51 Respiratory Rate 20 06/16/23 15:51 Blood Pressure 141/89 06/16/23 15:51 O2 Sat by Pulse Oximetry 99 06/16/23 15:51 Pain Scale Pain Intensity 8 - Physical Exam General Appearance: no apparent distress, alert Eye Exam: PERRL/EOMI, eyes nml inspection Ears, Nose, Throat Exam: normal ENT inspection, TMs normal, pharynx normal, moist mucous membranes Neck Exam: normal inspection, non-tender, supple, full range of motion Respiratory Exam: normal breath sounds, lungs clear, No respiratory distress Cardiovascular Exam: regular rate/rhythm, normal heart sounds, normal peripheral pulses Gastrointestinal/Abdomen Exam: soft, normal bowel sounds, No tenderness, No mass Back Exam: normal inspection, normal range of motion, No CVA tenderness, No vertebral tenderness Extremity Exam: normal inspection, normal range of motion, pelvis stable Neurologic Exam: alert, oriented x 3, cooperative, normal mood/affect, nml cer ebellar function, sensation nml, No motor deficits Skin Exam: normal color, warm, dry, No rash Lymphatic Exam: No adenopathy SpO2 Interpretation: normal SpO2: 99 O2 Delivery: Room Air - Course Nursing assessment & vital signs reviewed: Yes - CT Exams Head CT Interpretation: Tele-radiologist Report (No acute intracranial pathology) Ordered Tests: Active Orders 24 hr Category Date Time Status Clinic Lead STAT Care 06/16/23 17:01 Active IV Insertion STAT Care 06/16/23 17:01 Active Pulse Oximetry (ED) STAT Care 06/16/23 17:01 Active HEAD WITHOUT CONTRAST [CT] Stat Exams 06/16/23 17:00 Taken BLOOD CULTURE Stat Lab 06/16/23 17:45 Received CBC W DIFF Stat Lab 06/16/23 17:10 Completed CMP Stat Lab 06/16/23 17:10 Completed Transfer Order Routine Transfer 06/16/23 Ordered Medication Summary Generic Name Dose Route Start Last Admin Trade Name Freq PRN Reason Stop Dose Admin Hydromorphone/Sodium Chloride 0 mg 06/16/23 17:03 06/16/23 17:34 Hydromorphone/Nacl/Pf 30 Mg/30 Ml Filling Separator.Syring IV 07/16/23 17:02 30 mg PRN PRN Administration PAIN Acyclovir Sodium 1,000 mg/ 250 mls @ 166.667 mls/hr 06/16/23 17:02 06/16/23 17:21 Sodium Chloride IV 06/16/23 18:31 166.667 mls/hr ONCE ONE Administration Sodium Chloride 1,000 mls @ 50 mls/hr 06/16/23 17:30 06/16/23 17:36 Sodium Chloride 0.9% 1000 Ml IV 07/16/23 17:29 50 mls/hr .Q20H GLENNA Administration Discontinued Medications Generic Name Dose Route Start Last Admin Trade Name Freq PRN Reason Stop Dose Admin Hydrocortisone Sodium Succinate 100 mg 06/16/23 17:03 06/16/23 17:18 Hydrocortisone Sod Succinate 100 Mg/Vial Vial IV 06/16/23 17:04 100 mg STAT ONE Administration Hydrocortisone Sodium Succinate Confirm 06/16/23 17:15 Hydrocortisone Sod Succinate 100 Mg/Vial Vial Administered 06/16/23 17:16 Dose 100 mg .ROUTE .STK-MED ONE Sterile Water Confirm 06/16/23 17:16 Water For Injection,Sterile 10 Ml Vial Administered 06/16/23 17:17 Dose 10 ml IJ .STK-MED ONE Lab/Rad Data: Laboratory Result Diagrams 06/16/23 17:10 06/16/23 17:10 Laboratory Results 06/16/23 06/16/23 Range/Units 17:10 17:10 WBC 11.0 H (4.0-10.5) x10^3/uL RBC 5.06 (4.1-5.6) x10^6/uL Hgb 14.8 (12.5-18.0) g/dL Hct 45.6 (42-50) % MCV 90.1 (78-100) fL MCH 29.2 (26-32) pg MCHC 32.5 (32-36) g/dL RDW 14.6 H (11.5-14.0) % Plt Count 352 (150-450) x10^3/uL MPV 10.1 (7.5-11.0) fL Gran % 56.1 (36.0-66.0) % Immature Gran % (Auto) 0.7 H (0.00-0.4) % Nucleat RBC Rel Count 0.0 (0.00-0.1) % Eos # (Auto) 0.81 H (0-0.5) x10^3/uL Immature Gran # (Auto) 0.08 H (0.00-0.03) x10^3u/L Absolute Lymphs (auto) 3.01 (1.0-4.6) x10^3/uL Absolute Monos (auto) 0.86 (0.0-1.3) x10^3/uL Absolute Nucleated RBC 0.00 (0.00-0.01) x10^3u/L Lymphocytes % 27.3 (24.0-44.0) % Monocytes % 7.8 (0.0-12.0) % Eosinophils % 7.3 H (0.00-5.0) % Basophils % 0.8 (0.0-0.4) % Absolute Granulocytes 6.19 (1.4-6.9) x10^3/uL Basophils # 0.09 (0-0.4) x10^3/uL Sodium 135 L (137-145) mmol/L Potassium 3.9 (3.5-5.1) mmol/L Chloride 97 L (98-107) mmol/L Carbon Dioxide 27 (22-30) mmol/L Anion Gap 14.6 (5-15) MEQ/L BUN 11 (9-20) mg/dL Creatinine 0.86 (0.66-1.25) mg/dL Estimated GFR > 60.0 ML/MIN Glucose 136 H (74-106) mg/dL Calcium 9.2 (8.4-10.2) mg/dL Total Bilirubin 0.30 (0.2-1.3) mg/dL AST 39 (17-59) U/L ALT 40 (0-50) U/L Alkaline Phosphatase 102 (38-126) U/L Serum Total Protein 7.2 (6.3-8.2) g/dL Albumin 4.3 (3.5-5.0) g/dL - Progress Progress: improved Progress Note: 53-year-old male presents to our ED for evaluation of chronic pain. Spoke to Dr. Pardo at 4:14 PM regarding the possibility of transferring patient to higher level of care. Dr. Pardo agreed that transferring would be appropriate. At 4:17 PM I spoke to Dr. Alcantara patient's neurologist. Dr. Alcantara states that patient needs to see a specialist in [place] regarding his flareup. Jacki verdugo is refusing transfer to [place]. Patient offers no clear reason to refuse transfer to higher level of care. Patient prefers to stay in our hospital for the usual management. Patient's neurologist feels patient needs to see a specialist therefore we offered patient to transfer to to see this particular specialist advised by Dr. Alcantara. We will speak to the hospitalist regarding this issue with the hopes that he will be willing to admit our patient and spite of patient's neurologist advising transfer to for higher level of care 06/16/23 16:[address] Bloom at 4:44 PM neurologist at who states there are no beds available at the present time. Additionally neuro immunology is not available. Dr. Bloom recommends admitting to our hospital for routine care. Dr. Bloom will send a message to their neuro accounting instructor to reach out to [facility] for an outpatient follow-up. I spoke to Dr. Logan at 5 PM who excepts admission to observation. Dr. Logan was briefed on the above. 06/16/23 17:08 Complexity of problems addressed is moderate acute complicated No critical care time Complexity of data reviewed and analyzed is extensive. Laboratory imaging studies test ordered and analyzed. Plan of care discussed with patient's primary care doctor Dr. 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 Alcantara, and Dr. Bloom neurologist at . Risk complication and a risk morbidity/mortality of patient management is high. Patient requires hospitalization for further evaluation and treatment. Patient agrees to admission to [facility]. Vital stable . Plan of care established for shared decision making. Patient voices no other complaints concerns at this time. Portions of this note were created with voice recognition technology. There may be grammatical, spelling, punctuation or sound alike errors 06/16/23 18:19 Counseled pt/family regarding: lab results, diagnosis, rad results - Departure Departure Disposition: Observation Clinical Impression: Mollaret's meningitis Condition: Stable Critical Care Time: No Referrals: ANN PARDO MD [Primary Care Provider] - Follow up/PCP as directed
[2023-06-16] MEDS ORDERED: ZOVIRAX IV ONE (17:02)
[2023-06-16] MEDS ORDERED: SODIUM CHLORIDE 0.9% IV ONE (17:02)
[2023-06-16] MEDS ORDERED: solu-CORTEF 100MG IV ONE (17:03)
[2023-06-16] MEDS ORDERED: solu-CORTEF 100MG ONE (17:15)
[2023-06-16] MEDS ORDERED: Sterile H2O 10 ml IJ ONE (17:16)
[2023-06-16 17:17] LABS: Absolute Neutrophil Ct (ANC) 6.19 x10^3/uL (1.4-6.9); BASOPHIL % 0.8 % (0.0-0.4); Basophil (Absolute #) 0.09 x10^3/uL (0-0.4); Eosinophil % 7.3 % (0.00-5.0); Eosinophil (Absolute #) 0.81 x10^3/uL (0-0.5); Hematocrit 45.6 % (42-50); Hemoglobin 14.8 g/dL (12.5-18.0); IMMATURE GRAN # 0.08 x10^3u/L (0.00-0.03); IMMATURE GRAN % 0.7 % (0.00-0.4); Lymphocyte (Absolute #) 3.01 x10^3/uL (1.0-4.6); Lymphocytes % 27.3 % (24.0-44.0); Mean Cell Volume 90.1 fL (78-100); Mean Corpuscular Hemoglobin 29.2 pg (26-32); Mean Corpuscular Hgb Concent. 32.5 g/dL (32-36); Mean Platelet Volume 10.1 fL (7.5-11.0); Monocyte (Absolute #) 0.86 x10^3/uL (0.0-1.3); Monocytes % 7.8 % (0.0-12.0); Neutrophil % 56.1 % (36.0-66.0); Platelet Count 352 x10^3/uL (150-450); Red Blood Count 5.06 x10^6/uL (4.1-5.6); Red Cell Distribution Width 14.6 % (11.5-14.0)
[2023-06-16 17:31] LABS: ALBUMIN 4.3 g/dL (3.5-5.0); ALKALINE PHOSPHATASE 102 U/L (38-126); ANION GAP 14.6 MEQ/L (5-15); BLOOD UREA NITROGEN 11 mg/dL (9-20); CHLORIDE 97 mmol/L (98-107); Calcium 9.2 mg/dL (8.4-10.2); Carbon Dioxide 27 mmol/L (22-30); Creatinine 1 0.86 mg/dL (0.66-1.25); EST GLOMERULAR FILTRATION RATE > 60.0 ML/MIN; Glucose 136 mg/dL (74-106); Potassium 3.9 mmol/L (3.5-5.1); SGOT/AST 39 U/L (17-59); SGPT/ALT 40 U/L (0-50); SODIUM 135 mmol/L (137-145); Total Protein 7.2 g/dL (6.3-8.2)
[2023-06-16] MEDS: HYDROMORPHONE 30 MG/30 ML-NS PCA IV PRN (17:34)
[2023-06-16] MEDS: Sodium Chloride 0.9% 1000 ML 1,000 ML IV SCH (17:36)
[2023-06-16] MEDS ORDERED: TYLENOL 325 MG PO PRN (21:26)
[2023-06-16] MEDS ORDERED: DUONEB 0.5-3 MG/3 ml Neb IH PRN (21:26)
[2023-06-16] MEDS ORDERED: MILK OF MAGNESIA 30 ML PO PRN (21:26)
[2023-06-16] MEDS ORDERED: Docusate Sodium 100 MG PO PRN (21:26)
[2023-06-16] MEDS ORDERED: ESOMEPRAZOLE MAGNESIUM 20 MG PO SCH (22:00)
[2023-06-16] MEDS ORDERED: NON-FORMULARY ITEM (Atorvastatin Calcium 10 MG Tablet) PO SCH (22:00)
[2023-06-16] MEDS ORDERED: NON-FORMULARY ITEM (Duloxetine Hcl [Cymbalta] 60 MG Capsule.Dr) PO SCH (22:00)
--- NOTE | 2023-06-16 22:02 | PCM.HP ---
History of Present Illness - Chief Complaint Chief Complaint: Mollaret's meningitis Date: 06/16/23 History of Present Illness: This is a 53-year-old male admitted for pain management. 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 He presented to the ED today stating he was having another flare reporting pain in his neck going down the back and into his legs. On arrival he was afebrile, heart rate 99, blood pressure 141/89, sats 99% Labs significant for WBC 11, globin 14, platelets 352, sodium 135, glucose 136. Was discussed transferring patient for higher level of care due to recurrent flareups however patient refused transfer. In the ED he received 100 mg of Solu-Cortef, acyclovir, Dilaudid. - Review of Systems Constitutional: No Symptoms Respiratory: No Symptoms Cardiac: No Symptoms Abdominal/Gastrointestinal: No Symptoms Musculoskeletal: Back Pain, Neck Pain Skin: No Symptoms Neurological: Headache Psychological: No Symptoms Endocrine: No Symptoms Medications & Allergies Home Medications: Home Medication List Aspirin 81 mg PO DAILY 01/24/14 [History Confirmed 06/16/23] Enalapril Maleate 10 mg [Vasotec 10 MG] 20 mg PO HS 01/24/14 [History Confirmed 06/16/23] Multivitamin [Multi-Vitamin Daily] 1 each PO DAILY 01/24/14 [History Confirmed 06/16/23] Testosterone Cypionate 1.25 ml IM UD 10/09/14 [History Confirmed 06/16/23] Duloxetine HCl [Cymbalta] 60 mg PO BID 04/23/15 [History Confirmed 06/16/23] Metformin HCl 500 mg [Glucophage 500 MG] 1,000 mg PO BIDWM 04/20/20 [History Confirmed 06/16/23] Atorvastatin Calcium [Lipitor] 10 mg PO HS 01/06/22 [History Confirmed 06/16/23] Morphine Sulfate Ir 15 mg [Msir 15 mg] 15 mg PO 0600,1200,1800,0000 02/07/22 [History Confirmed 06/16/23] Mineral Oil 30 ml PO TID 10/30/22 [History Confirmed 06/16/23] Esomeprazole Magnesium [Nexium 24Hr] 40 mg PO HS 12/25/22 [History Confirmed 06/16/23] Lactobacillus Combo No.10 [Probiotic] 2 each PO DAILY 03/25/23 [History Confirmed 06/16/23] Prednisone 5 mg [Deltasone 5 mg] 15 mg PO DAILY 05/20/23 [History Confirmed 06/16/23] Allergies/Adverse Reactions: Allergies Allergy/AdvReac Type Severity Reaction Status Date / Time pregabalin [From Lyrica] AdvReac Severe Hives Verified 05/20/23 17:35 azithromycin [From Zmax] AdvReac Mild Verified 05/20/23 17:35 - Past Medical History Past Medical History: Yes Neurological History: Paralysis, Seizures ENT History: No Pertinent History Cardiac History: High Cholesterol, Hypertension Respiratory History: Sleep Apnea Endocrine Medical History: Diabetes Type II Musculoskelatal History: No Pertinent History GI Medical History: No Pertinent History History: No Pertinent History Pyscho-Social History: Depression Male Reproductive Disorders: No Pertinent History Comment: Mollaret's, spleen removed - Past Surgical History Past Surgical History: Yes Neuro Surgical History: No Pertinent History Cardiac History: No Pertinent History Respiratory Surgery: No Pertinent History GI Surgical History: Appendectomy, Other Genitourinary Surgical Hx: No Pertinent History Musculskeletal Surgical Hx: No Pertinent History Male Surgical History: Vasectomy Other Surgical History: CONSIDERED PRE-DIABETIC DUE STEROIDS. SPLENECTOMY 1988 - Social History Smoking Status: Never smoker Exposure to second hand smoke: No Alcohol: None Drug Use: none Significant Family History: no pertinent family hx - Physical Exam Vital Signs: Vital Signs - 24 hr Temp Pulse Resp BP BP Pulse Ox 06/16/23 19:45 98.1 F 101 H 20 135/92 98 06/16/23 18:25 99 06/16/23 18:10 96 H 122/78 95 06/16/23 18:03 96 06/16/23 17:31 92 H 18 111/86 99 06/16/23 17:01 138/98 98 06/16/23 16:30 119 H 149/99 97 06/16/23 16:00 126/93 98 06/16/23 15:51 97.5 F 99 H 20 141/89 99 General Appearance: no apparent distress Neurologic Exam: alert, oriented x 3 Eye Exam: PERRL/EOMI Ears, Nose, Throat Exam: normal ENT inspection Neck Exam: normal inspection Respiratory Exam: normal breath sounds Cardiovascular Exam: regular rate/rhythm Gastrointestinal/Abdomen Exam: soft Extremity Exam: No swelling Skin Exam: normal color Results - Labs Lab/Micro Results: Lab Results-Last 24 Hours 06/16/23 06/16/23 Range/Units 17:10 17:10 WBC 11.0 H (4.0-10.5) x10^3/uL RBC 5.06 (4.1-5.6) x10^6/uL Hgb 14.8 (12.5-18.0) g/dL Hct 45.6 (42-50) % MCV 90.1 (78-100) fL MCH 29.2 (26-32) pg MCHC 32.5 (32-36) g/dL RDW 14.6 H (11.5-14.0) % Plt Count 352 (150-450) x10^3/uL MPV 10.1 (7.5-11.0) fL Gran % 56.1 (36.0-66.0) % Immature Gran % (Auto) 0.7 H (0.00-0.4) % Nucleat RBC Rel Count 0.0 (0.00-0.1) % Eos # (Auto) 0.81 H (0-0.5) x10^3/uL Immature Gran # (Auto) 0.08 H (0.00-0.03) x10^3u/L Absolute Lymphs (auto) 3.01 (1.0-4.6) x10^3/uL Absolute Monos (auto) 0.86 (0.0-1.3) x10^3/uL Absolute Nucleated RBC 0.00 (0.00-0.01) x10^3u/L Lymphocytes % 27.3 (24.0-44.0) % Monocytes % 7.8 (0.0-12.0) % Eosinophils % 7.3 H (0.00-5.0) % Basophils % 0.8 (0.0-0.4) % Absolute Granulocytes 6.19 (1.4-6.9) x10^3/uL Basophils # 0.09 (0-0.4) x10^3/uL Sodium 135 L (137-145) mmol/L Potassium 3.9 (3.5-5.1) mmol/L Chloride 97 L (98-107) mmol/L Carbon Dioxide 27 (22-30) mmol/L Anion Gap 14.6 (5-15) MEQ/L BUN 11 (9-20) mg/dL Creatinine 0.86 (0.66-1.25) mg/dL Estimated GFR > 60.0 ML/MIN Glucose 136 H (74-106) mg/dL Calcium 9.2 (8.4-10.2) mg/dL Total Bilirubin 0.30 (0.2-1.3) mg/dL AST 39 (17-59) U/L ALT 40 (0-50) U/L Alkaline Phosphatase 102 (38-126) U/L Serum Total Protein 7.2 (6.3-8.2) g/dL Albumin 4.3 (3.5-5.0) g/dL - Radiology Impressions Radiology Exams & Impressions: Radiology Procedures Category Date Time Status HEAD WITHOUT CONTRAST [CT] Stat Exams 06/16/23 17:00 Taken Assessment/Plan (1) Patricia's meningitis Current Visit: Yes Status: Chronic Assessment & Plan: ASSESSMENT #Vinaybekahts Meninigitis exacerbation #Uncontrolled pain #Chronic pain #Diabetes #Hypertension PLAN -Pain control -Hydrocortisone -Acyclovir -Continue home meds for chronic conditions Prophylaxis: Lovenox Entire encounter performed via telemedicine Code(s): G03.2 - BENIGN RECURRENT MENINGITIS [MOLLARET] Telemedicine Encounter - Telemedicine Encounter Telemedicine Encounter: The entirety of this encounter was performed via Telemedicine"
[2023-06-16] MEDS ORDERED: Cymbalta 30 MG Capsule ONE (22:26)
[2023-06-16] MEDS ORDERED: Zocor 10MG ONE (22:27)
[2023-06-16] MEDS ORDERED: Protonix 40MG Tablet ONE (22:28)
[2023-06-16] MEDS: Vasotec 10 MG PO SCH (22:33)
[2023-06-16] MEDS: HUMALOG SQ SCH (22:35)
[2023-06-16] MEDS: MINERAL OIL PO SCH (22:44)
[2023-06-16] MEDS: MSIR 15 MG PO SCH (23:34)
[2023-06-16] MEDS: BENADRYL 50 MG/ML IV SCH (23:34)
[2023-06-17] MEDS: ZOVIRAX IV SCH ×5 (01:30→21:58)
[2023-06-17] MEDS: SODIUM CHLORIDE 0.9% IV SCH ×5 (01:30→21:58)
[2023-06-17] MEDS: solu-CORTEF 100MG IV SCH ×5 (01:31→21:58)
[2023-06-17 05:22] LABS: ANION GAP 12.6 MEQ/L (5-15); BLOOD UREA NITROGEN 9 mg/dL (9-20); CHLORIDE 99 mmol/L (98-107); Calcium 8.3 mg/dL (8.4-10.2); Carbon Dioxide 27 mmol/L (22-30); Creatinine 1 0.97 mg/dL (0.66-1.25); EST GLOMERULAR FILTRATION RATE > 60.0 ML/MIN; Glucose 241 mg/dL (74-106); MAGNESIUM 2.1 mg/dL (1.6-2.3); Potassium 4.6 mmol/L (3.5-5.1); SODIUM 134 mmol/L (137-145)
[2023-06-17] MEDS: MSIR 15 MG PO SCH ×3 (06:01→18:15)
[2023-06-17] MEDS: HYDROMORPHONE 30 MG/30 ML-NS PCA IV PRN (07:34)
[2023-06-17] MEDS: HUMALOG SQ SCH ×4 (08:31→21:57)
[2023-06-17] MEDS: Glucophage 500 MG PO SCH ×2 (08:32→17:13)
[2023-06-17] MEDS: Sterile H2O 10 ml IJ SCH ×3 (08:32→21:58)
--- NOTE | 2023-06-17 08:43 | XRAY ---
Indication: Headache. Pain. Multiple contiguous axial images obtained through the head without contrast. Comparison: January 19, 2023 Stable small ovoid hypodensity in the superior sagittal sinus dating back to May 03, 2009 again favored to be benign given stability over the years. No acute intracranial hemorrhage, abnormal extra-axial fluid collection, or mass effect. Fourth ventricle is midline without hydrocephalus. Naranjo-white matter differentiation preserved. Bony calvarium intact. Visualized paranasal sinuses and mastoid air cells are clear. Impression: Stable benign ovoid hyperdensity superior sagittal sinus. No new/acute intracranial abnormalities.
[2023-06-17] MEDS: ECOTRIN 81 MG PO SCH (08:45)
[2023-06-17] MEDS: Acidophilus TABLET PO SCH (08:45)
[2023-06-17] MEDS: ENOXAPARIN SODIUM SQ SCH (08:50)
[2023-06-17] MEDS: MINERAL OIL PO SCH ×3 (08:50→21:56)
[2023-06-17] MEDS: Cymbalta 30 MG Capsule PO SCH ×2 (08:50→21:57)
[2023-06-17] MEDS ORDERED: NON-FORMULARY ITEM (Aspirin [Aspirin] 81 MG Tablet) PO SCH (10:00)
[2023-06-17] MEDS ORDERED: LACTOBACILLUS COMBO NO 10 PO SCH (10:00)
--- NOTE | 2023-06-17 13:11 | PCM.NOTE ---
Date and Time: 06/17/23 0086 Subjective Assessment: This is a 53-year-old male admitted for pain management. 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 He presented to the ED stating he was having another flare reporting pain in his neck going down the back and into his legs. He reports recurrent flareups and refused tx to a higher level of care. Since admission he has been afebrile and vital signs are stable. He continues to have pain today in his neck and back. Pain is improving from admission yesterday. Current plan is pain control with Dilaudid RN PLASTIC SURGERY, Solu-Cortef, acyclovir. Discussed labs and CT results. Plan is for pt to d/c tomorrow. Pt discussed he is f/u with a new pain management physican for better pain control OP. Advised he also needs to f/u OP neuro smasher at [facility]. - Review of Systems Constitutional: No Fever, No Chills Eyes: No Symptoms Ears, Nose, & Throat: No Symptoms Respiratory: No Cough, No Short Of Breath Cardiac: No Chest Pain, No Edema, No Syncope Abdominal/Gastrointestinal: No Abdominal Pain, No Nausea, No Vomiting, No Diarrhea Genitourinary Symptoms: No Dysuria Musculoskeletal: Myalgias (neck and back pain), No Back Pain, No Neck Pain Skin: No Rash Neurological: No Dizziness, No Focal Weakness, No Sensory Changes Psychological: No Symptoms Endocrine: No Symptoms Hematologic/Lymphatic: No Symptoms Immunological/Allergic: No Symptoms Objective Exam General Appearance: no apparent distress, alert Neurologic Exam: alert, oriented x 3, cooperative, normal mood/affect, nml cerebellar function, sensation nml, No motor deficits Skin Exam: normal color, warm, dry Eye Exam: PERRL, EOMI, eyes nml inspection Ears, Nose, Throat Exam: normal ENT inspection, pharynx normal, moist mucous membranes Neck Exam: normal inspection, non-tender, supple, full range of motion Respiratory Exam: normal breath sounds, lungs clear, No respiratory distress Cardiovascular Exam: regular rate/rhythm, normal heart sounds Gastrointestinal/Abdomen Exam: soft, No tenderness, No mass Extremity Exam: normal inspection, normal range of motion Back Exam: normal inspection, normal range of motion, point tenderness (cervical and thoracic regions pain with palpation), No CVA tenderness, No vertebral tenderness Male Genitalia Exam: deferred Rectal Exam: deferred OBJECTIVE DATA Vital Signs: Vital Signs - 24 hr Temp Pulse Resp BP BP Pulse Ox 06/17/23 11:39 98.0 F 97 H 16 130/76 97 06/17/23 07:54 92 L 06/17/23 07:21 98.0 F 91 H 16 124/73 94 L 06/17/23 05:34 20 95 06/17/23 04:00 97.1 F 109 H 21 112/71 96 06/17/23 01:34 18 95 06/16/23 23:56 93 L 06/16/23 23:44 97.8 F 95 H 20 134/69 96 06/16/23 21:56 105 H 16 93 L 06/16/23 21:34 18 96 06/16/23 19:45 98.1 F 101 H 20 135/92 98 06/16/23 18:25 99 06/16/23 18:10 96 H 122/78 95 06/16/23 18:03 96 06/16/23 17:31 92 H 18 111/86 99 06/16/23 17:01 138/98 98 06/16/23 16:30 119 H 149/99 97 06/16/23 16:00 126/93 98 06/16/23 15:51 97.5 F 99 H 20 141/89 99 Pain Assessment - Last Documented Pain Intensity 8 Intake and Output: Intake & Output 06/15/23 06/16/23 06/17/23 06/18/23 11:59 11:59 11:59 11:59 Intake Total 3638 Output Total 1999 Balance 1638 Weight 112 kg Lab Results: Lab Results-Last 24 Hours 06/16/23 06/16/23 06/16/23 Range/Units 17:10 17:10 21:40 WBC 11.0 H (4.0-10.5) x10^3/uL RBC 5.06 (4.1-5.6) x10^6/uL Hgb 14.8 (12.5-18.0) g/dL Hct 45.6 (42-50) % MCV 90.1 (78-100) fL MCH 29.2 (26-32) pg MCHC 32.5 (32-36) g/dL RDW 14.6 H (11.5-14.0) % Plt Count 352 (150-450) x10^3/uL MPV 10.1 (7.5-11.0) fL Gran % 56.1 (36.0-66.0) % Immature Gran % (Auto) 0.7 H (0.00-0.4) % Nucleat RBC Rel Count 0.0 (0.00-0.1) % Eos # (Auto) 0.81 H (0-0.5) x10^3/uL Immature Gran # (Auto) 0.08 H (0.00-0.03) x10^3u/L Absolute Lymphs (auto) 3.01 (1.0-4.6) x10^3/uL Absolute Monos (auto) 0.86 (0.0-1.3) x10^3/uL Absolute Nucleated RBC 0.00 (0.00-0.01) x10^3u/L Lymphocytes % 27.3 (24.0-44.0) % Monocytes % 7.8 (0.0-12.0) % Eosinophils % 7.3 H (0.00-5.0) % Basophils % 0.8 (0.0-0.4) % Absolute Granulocytes 6.19 (1.4-6.9) x10^3/uL Basophils # 0.09 (0-0.4) x10^3/uL Sodium 135 L (137-145) mmol/L Potassium 3.9 (3.5-5.1) mmol/L Chloride 97 L (98-107) mmol/L Carbon Dioxide 27 (22-30) mmol/L Anion Gap 14.6 (5-15) MEQ/L BUN 11 (9-20) mg/dL Creatinine 0.86 (0.66-1.25) mg/dL Estimated GFR > 60.0 ML/MIN Glucose 136 H (74-106) mg/dL POC Glucometer 328 H (74 to 106) mg/dL Calcium 9.2 (8.4-10.2) mg/dL Magnesium (1.6-2.3) mg/dL Total Bilirubin 0.30 (0.2-1.3) mg/dL AST 39 (17-59) U/L ALT 40 (0-50) U/L Alkaline Phosphatase 102 (38-126) U/L Serum Total Protein 7.2 (6.3-8.2) g/dL Albumin 4.3 (3.5-5.0) g/dL 06/17/23 06/17/23 06/17/23 Range/Units 02:11 04:47 07:01 WBC (4.0-10.5) x10^3/uL RBC (4.1-5.6) x10^6/uL Hgb (12.5-18.0) g/dL Hct (42-50) % MCV (78-100) fL MCH (26-32) pg MCHC (32-36) g/dL RDW (11.5-14.0) % Plt Count (150-450) x10^3/uL MPV (7.5-11.0) fL Gran % (36.0-66.0) % Immature Gran % (Auto) (0.00-0.4) % Nucleat RBC Rel Count (0.00-0.1) % Eos # (Auto) (0-0.5) x10^3/uL Immature Gran # (Auto) (0.00-0.03) x10^3u/L Absolute Lymphs (auto) (1.0-4.6) x10^3/uL Absolute Monos (auto) (0.0-1.3) x10^3/uL Absolute Nucleated RBC (0.00-0.01) x10^3u/L Lymphocytes % (24.0-44.0) % Monocytes % (0.0-12.0) % Eosinophils % (0.00-5.0) % Basophils % (0.0-0.4) % Absolute Granulocytes (1.4-6.9) x10^3/uL Basophils # (0-0.4) x10^3/uL Sodium 134 L (137-145) mmol/L Potassium 4.6 (3.5-5.1) mmol/L Chloride 99 (98-107) mmol/L Carbon Dioxide 27 (22-30) mmol/L Anion Gap 12.6 (5-15) MEQ/L BUN 9 (9-20) mg/dL Creatinine 0.97 (0.66-1.25) mg/dL Estimated GFR > 60.0 ML/MIN Glucose 241 H (74-106) mg/dL POC Glucometer 179 H 217 H (74 to 106) mg/dL Calcium 8.3 L (8.4-10.2) mg/dL Magnesium 2.1 (1.6-2.3) mg/dL Total Bilirubin (0.2-1.3) mg/dL AST (17-59) U/L ALT (0-50) U/L Alkaline Phosphatase (38-126) U/L Serum Total Protein (6.3-8.2) g/dL Albumin (3.5-5.0) g/dL 06/17/23 Range/Units 11:12 WBC (4.0-10.5) x10^3/uL RBC (4.1-5.6) x10^6/uL Hgb (12.5-18.0) g/dL Hct (42-50) % MCV (78-100) fL MCH (26-32) pg MCHC (32-36) g/dL RDW (11.5-14.0) % Plt Count (150-450) x10^3/uL MPV (7.5-11.0) fL Gran % (36.0-66.0) % Immature Gran % (Auto) (0.00-0.4) % Nucleat RBC Rel Count (0.00-0.1) % Eos # (Auto) (0-0.5) x10^3/uL Immature Gran # (Auto) (0.00-0.03) x10^3u/L Absolute Lymphs (auto) (1.0-4.6) x10^3/uL Absolute Monos (auto) (0.0-1.3) x10^3/uL Absolute Nucleated RBC (0.00-0.01) x10^3u/L Lymphocytes % (24.0-44.0) % Monocytes % (0.0-12.0) % Eosinophils % (0.00-5.0) % Basophils % (0.0-0.4) % Absolute Granulocytes (1.4-6.9) x10^3/uL Basophils # (0-0.4) x10^3/uL Sodium (137-145) mmol/L Potassium (3.5-5.1) mmol/L Chloride (98-107) mmol/L Carbon Dioxide (22-30) mmol/L Anion Gap (5-15) MEQ/L BUN (9-20) mg/dL Creatinine (0.66-1.25) mg/dL Estimated GFR ML/MIN Glucose (74-106) mg/dL POC Glucometer 218 H (74 to 106) mg/dL Calcium (8.4-10.2) mg/dL Magnesium (1.6-2.3) mg/dL Total Bilirubin (0.2-1.3) mg/dL AST (17-59) U/L ALT (0-50) U/L Alkaline Phosphatase (38-126) U/L Serum Total Protein (6.3-8.2) g/dL Albumin (3.5-5.0) g/dL Radiology Exams: Radiology Procedures Category Date Time Status HEAD WITHOUT CONTRAST [CT] Stat Exams 06/16/23 17:00 Completed Assessment/Plan (1) Mollaret's meningitis Current Visit: Yes Status: Chronic Assessment & Plan: -Pain control- with Dilaudid RN PLASTIC SURGERY -Hydrocortisone -Acyclovir - F/U OP with neuro smasher at [facility] Code(s): G03.2 - BENIGN RECURRENT MENINGITIS [MOLLARET] (2) Cephalgia Current Visit: No Status: Acute Onset Date: ~11/01/18 Assessment & Plan: - pain control Code(s): R51 - HEADACHE * DO NOT USE * (3) Exacerbation of chronic back pain Current Visit: No Status: Acute Onset Date: ~11/01/18 Assessment & Plan: - pain control - F/U with pain management OP DVT: lovenox PPI: Protonix D/C plan tomorrow Next of kin Brandi Greene [phone] Code(s): M54.9 - DORSALGIA, UNSPECIFIED; G89.29 - OTHER CHRONIC PAIN
[2023-06-17] MEDS: Sodium Chloride 0.9% 1000 ML 1,000 ML IV SCH (20:31)
[2023-06-17] MEDS: Protonix 40MG Tablet PO SCH (21:56)
[2023-06-17] MEDS: Zocor 10MG PO SCH (21:57)
[2023-06-17] MEDS: Vasotec 10 MG PO SCH (21:57)
[2023-06-18] MEDS: BENADRYL 50 MG/ML IV SCH ×2 (00:01→23:32)
[2023-06-18] MEDS: HYDROMORPHONE 30 MG/30 ML-NS PCA IV PRN ×2 (00:01→15:35)
[2023-06-18] MEDS: ZOVIRAX IV SCH ×3 (06:48→22:00)
[2023-06-18] MEDS: MSIR 15 MG PO SCH ×5 (06:48→23:32)
[2023-06-18] MEDS: solu-CORTEF 100MG IV SCH ×3 (06:48→21:58)
[2023-06-18] MEDS: SODIUM CHLORIDE 0.9% IV SCH ×3 (06:48→22:00)
[2023-06-18] MEDS: Sterile H2O 10 ml IJ SCH ×3 (06:48→21:58)
[2023-06-18 07:47] LABS: Hematocrit 39.3 % (42-50); Hemoglobin 12.7 g/dL (12.5-18.0); Mean Cell Volume 91.8 fL (78-100); Mean Corpuscular Hemoglobin 29.7 pg (26-32); Mean Corpuscular Hgb Concent. 32.3 g/dL (32-36); Mean Platelet Volume 9.8 fL (7.5-11.0); Platelet Count 345 x10^3/uL (150-450); Red Blood Count 4.28 x10^6/uL (4.1-5.6); Red Cell Distribution Width 14.9 % (11.5-14.0); White Blood Count 10.9 x10^3/uL (4.0-10.5)
[2023-06-18] MEDS: HUMALOG SQ SCH ×4 (08:16→21:59)
[2023-06-18] MEDS: Glucophage 500 MG PO SCH ×2 (08:18→18:10)
[2023-06-18] MEDS: Cymbalta 30 MG Capsule PO SCH ×2 (08:18→21:58)
[2023-06-18] MEDS: ECOTRIN 81 MG PO SCH (08:18)
[2023-06-18] MEDS: Acidophilus TABLET PO SCH (08:18)
[2023-06-18] MEDS: MINERAL OIL PO SCH ×3 (08:18→21:59)
[2023-06-18] MEDS: ENOXAPARIN SODIUM SQ SCH (08:22)
[2023-06-18 08:29] LABS: ALBUMIN 3.7 g/dL (3.5-5.0); ALKALINE PHOSPHATASE 93 U/L (38-126); BLOOD UREA NITROGEN 8 mg/dL (9-20); CHLORIDE 102 mmol/L (98-107); Calcium 8.1 mg/dL (8.4-10.2); Carbon Dioxide 30 mmol/L (22-30); Creatinine 1 0.74 mg/dL (0.66-1.25); EST GLOMERULAR FILTRATION RATE > 60.0 ML/MIN; Glucose 182 mg/dL (74-106); Potassium 4.2 mmol/L (3.5-5.1); SGOT/AST 31 U/L (17-59); SGPT/ALT 34 U/L (0-50); SODIUM 138 mmol/L (137-145); Total Protein 6.2 g/dL (6.3-8.2)
--- NOTE | 2023-06-18 10:13 | PCM.NOTE ---
Date and Time: 06/18/23 0941 Subjective Assessment: This is a 53-year-old male admitted for pain management. 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 He presented to the ED stating he was having another flare reporting pain in his neck going down the back and into his legs. He reports recurrent flareups and refused tx to a higher level of care. Since admission he has been afebrile and vital signs are stable. He continues to have pain today in his neck and back. Pain is improved from admission but not from yesterday. Current plan is pain control with Dilaudid RECEIVING TEAM MEMBER, Solu-Cortef, acyclovir. Discussed labs and CT results. Pt discussed he is f/u with a new pain management physican for better pain control OP. Advised he also needs to f/u OP neuro dehydration unit operator at [facility]. Pt verbally aggressive and abusive to this provider. Pt stated that this provider did not need to come into his room if not going to be helpful. This was discussed with staff, manager housekeeping, and chief nursing officer. Explained that staff should not go into room alone due to his concerning behavior. Discussed case with Dr. Logan. Tele-Neurology to be consulted for further evaluation of dx and sxs. - Review of Systems Constitutional: No Fever, No Chills Eyes: No Symptoms Ears, Nose, & Throat: No Symptoms Respiratory: No Cough, No Short Of Breath Cardiac: No Chest Pain, No Edema, No Syncope Abdominal/Gastrointestinal: No Abdominal Pain, No Nausea, No Vomiting, No Diarrhea Genitourinary Symptoms: No Dysuria Musculoskeletal: Back Pain, Neck Pain Skin: No Rash Neurological: No Dizziness, No Focal Weakness, No Sensory Changes Psychological: No Symptoms, Emotional Lability, Mood Changes, Other (irritability, anger, verbally abusive, agressive behavior) Endocrine: No Symptoms Hematologic/Lymphatic: No Symptoms Immunological/Allergic: No Symptoms Objective Exam General Appearance: no apparent distress, alert Neurologic Exam: alert, oriented x 3, nml cerebellar function, sensation nml, agitation, uncooperative, No motor deficits Skin Exam: normal color, warm, dry Eye Exam: PERRL, EOMI, eyes nml inspection Ears, Nose, Throat Exam: normal ENT inspection, pharynx normal, moist mucous membranes Neck Exam: normal inspection, non-tender, supple, full range of motion Respiratory Exam: normal breath sounds, lungs clear, No respiratory distress Cardiovascular Exam: regular rate/rhythm, normal heart sounds Gastrointestinal/Abdomen Exam: soft, No tenderness, No mass Extremity Exam: normal inspection, normal range of motion Back Exam: normal inspection, normal range of motion, point tenderness (Cervical, thoracic, and lumbar regions.), No CVA tenderness, No vertebral tenderness Male Genitalia Exam: deferred Rectal Exam: deferred OBJECTIVE DATA Vital Signs: Vital Signs - 24 hr Temp Pulse Resp BP Pulse Ox 06/18/23 07:10 96.4 F 101 H 16 121/57 98 06/18/23 06:31 98 06/18/23 04:01 20 95 06/18/23 04:00 97.2 F 98 H 19 136/73 97 06/18/23 03:34 20 95 06/18/23 00:01 97 06/17/23 23:43 97.2 F 98 H 20 143/83 98 06/17/23 23:34 97 06/17/23 20:00 97.2 F 100 H 21 137/79 96 06/17/23 19:34 18 95 06/17/23 18:05 94 L 06/17/23 15:59 97.8 F 110 H 16 131/78 95 06/17/23 11:39 98.0 F 97 H 16 130/76 97 Pain Assessment - Last Documented Pain Intensity 8 Intake and Output: Intake & Output 06/15/23 06/16/23 06/17/23 06/18/23 11:59 11:59 11:59 11:59 Intake Total 3632 4829 Output Total 1999 9830 Balance 1638 859 Weight 112 kg Lab Results: Lab Results-Last 24 Hours 06/17/23 06/17/23 06/17/23 Range/Units 11:12 15:45 21:42 WBC (4.0-10.5) x10^3/uL RBC (4.1-5.6) x10^6/uL Hgb (12.5-18.0) g/dL Hct (42-50) % MCV (78-100) fL MCH (26-32) pg MCHC (32-36) g/dL RDW (11.5-14.0) % Plt Count (150-450) x10^3/uL MPV (7.5-11.0) fL Sodium (137-145) mmol/L Potassium (3.5-5.1) mmol/L Chloride (98-107) mmol/L Carbon Dioxide (22-30) mmol/L Anion Gap (5-15) MEQ/L BUN (9-20) mg/dL Creatinine (0.66-1.25) mg/dL Estimated GFR ML/MIN Glucose (74-106) mg/dL POC Glucometer 218 H 222 H 221 H (74 to 106) mg/dL Calcium (8.4-10.2) mg/dL Total Bilirubin (0.2-1.3) mg/dL AST (17-59) U/L ALT (0-50) U/L Alkaline Phosphatase (38-126) U/L Serum Total Protein (6.3-8.2) g/dL Albumin (3.5-5.0) g/dL 06/18/23 06/18/23 06/18/23 Range/Units 07:08 07:40 07:40 WBC 10.9 H (4.0-10.5) x10^3/uL RBC 4.28 (4.1-5.6) x10^6/uL Hgb 12.7 (12.5-18.0) g/dL Hct 39.3 L (42-50) % MCV 91.8 (78-100) fL MCH 29.7 (26-32) pg MCHC 32.3 (32-36) g/dL RDW 14.9 H (11.5-14.0) % Plt Count 345 (150-450) x10^3/uL MPV 9.8 (7.5-11.0) fL Sodium 138 (137-145) mmol/L Potassium 4.2 (3.5-5.1) mmol/L Chloride 102 (98-107) mmol/L Carbon Dioxide 30 (22-30) mmol/L Anion Gap 10.0 (5-15) MEQ/L BUN 8 L (9-20) mg/dL Creatinine 0.74 (0.66-1.25) mg/dL Estimated GFR > 60.0 ML/MIN Glucose 182 H (74-106) mg/dL POC Glucometer 209 H (74 to 106) mg/dL Calcium 8.1 L (8.4-10.2) mg/dL Total Bilirubin 0.20 (0.2-1.3) mg/dL AST 31 (17-59) U/L ALT 34 (0-50) U/L Alkaline Phosphatase 93 (38-126) U/L Serum Total Protein 6.2 L (6.3-8.2) g/dL Albumin 3.7 (3.5-5.0) g/dL Radiology Exams: Radiology Procedures Category Date Time Status HEAD WITHOUT CONTRAST [CT] Stat Exams 06/16/23 17:00 Completed Multi-Disciplinary Progress Notes: Multi-Disciplinary Progress Notes 06/17/23 15:30 Case Management Note by Kasie Garcia JACKERMAN RAAD WANTS PATIENT TO FOLLOW UP WITH NEUROIMMUNOLOGY- [facility] RE[facility]ERRAL TO [facility] THEY WILL REVIEW REFERRAL THEN CALL PATIENT WITH AN APPOINTMENT. THIS INFORMATION WAS ADDED TO PATIENT'S DC INSTRUCTIONS Initialized on 06/17/23 15:30 - END OF NOTE 06/17/23 13:05 Case Management Note by Kasie Garcia REFERRAL SENT TO [facility]CO DEPARTMENT Initialized on 06/17/23 13:05 - END OF NOTE Assessment/Plan (1) Mollaret's meningitis Current Visit: Yes Status: Chronic Code(s): G03.2 - BENIGN RECURRENT MENINGITIS [MOLLARET] (2) Cephalgia Current Visit: No Status: Acute Onset Date: ~11/01/18 Code(s): R51 - HEADACHE * DO NOT USE * (3) Exacerbation of chronic back pain Current Visit: No Status: Acute Onset Date: ~11/01/18 Assessment & Plan: (1) Mollaret's meningitis Current Visit: Yes Status: Chronic Assessment & Plan: -Pain control- with Dilaudid RECEIVING TEAM MEMBER -Hydrocortisone -Acyclovir - F/U OP with neuro dehydration unit operator at [facility] 06/18 - Tele- neurology consult Code(s): G03.2 - BENIGN RECURRENT MENINGITIS [MOLLARET] (2) Cephalgia Current Visit: No Status: Acute Onset Date: ~11/01/18 Assessment & Plan: - pain control Code(s): R51 - HEADACHE (3) Exacerbation of chronic back pain Current Visit: No Status: Acute Onset Date: ~11/01/18 Assessment & Plan: - pain control - F/U with pain management OP DVT: lovenox PPI: Protonix D/C plan: 1-2 days Next of kin Marquette Ramona [phone] Code(s): M54.9 - DORSALGIA, UNSPECIFIED; G89.29 - OTHER CHRONIC PAIN Code(s): M54.9 - DORSALGIA, UNSPECIFIED; G89.29 - OTHER CHRONIC PAIN
[2023-06-18] MEDS: TORAdol 30 mg Injection IV SCH ×3 (14:08→23:33)
[2023-06-18] MEDS: Sodium Chloride 0.9% 1000 ML 1,000 ML IV SCH (21:09)
[2023-06-18] MEDS: Vasotec 10 MG PO SCH (21:58)
[2023-06-18] MEDS: Zocor 10MG PO SCH (21:59)
[2023-06-18] MEDS: Protonix 40MG Tablet PO SCH (21:59)
[2023-06-19 04:56] LABS: Hematocrit 40.1 % (42-50); Hemoglobin 12.7 g/dL (12.5-18.0); Mean Corpuscular Hemoglobin 29.5 pg (26-32); Mean Corpuscular Hgb Concent. 31.7 g/dL (32-36); Mean Platelet Volume 9.5 fL (7.5-11.0); Platelet Count 357 x10^3/uL (150-450); Red Blood Count 4.31 x10^6/uL (4.1-5.6); Red Cell Distribution Width 14.8 % (11.5-14.0); White Blood Count 11.9 x10^3/uL (4.0-10.5)
[2023-06-19 05:26] LABS: ALBUMIN 3.6 g/dL (3.5-5.0); ALKALINE PHOSPHATASE 80 U/L (38-126); ANION GAP 10.9 MEQ/L (5-15); BLOOD UREA NITROGEN 8 mg/dL (9-20); CHLORIDE 103 mmol/L (98-107); Calcium 8.3 mg/dL (8.4-10.2); Carbon Dioxide 31 mmol/L (22-30); EST GLOMERULAR FILTRATION RATE > 60.0 ML/MIN; Glucose 148 mg/dL (74-106); Potassium 4.4 mmol/L (3.5-5.1); SGOT/AST 28 U/L (17-59); SGPT/ALT 33 U/L (0-50); SODIUM 140 mmol/L (137-145); Total Protein 5.9 g/dL (6.3-8.2)
[2023-06-19] MEDS: ZOVIRAX IV SCH ×3 (06:01→22:23)
[2023-06-19] MEDS: MSIR 15 MG PO SCH ×4 (06:01→23:40)
[2023-06-19] MEDS: solu-CORTEF 100MG IV SCH ×3 (06:01→22:24)
[2023-06-19] MEDS: TORAdol 30 mg Injection IV SCH ×4 (06:01→23:41)
[2023-06-19] MEDS: Sterile H2O 10 ml IJ SCH ×3 (06:01→22:39)
[2023-06-19] MEDS: SODIUM CHLORIDE 0.9% IV SCH ×3 (06:01→22:23)
[2023-06-19] MEDS: HUMALOG SQ SCH ×4 (07:15→22:39)
[2023-06-19] MEDS: Glucophage 500 MG PO SCH ×2 (07:42→16:47)
--- NOTE | 2023-06-19 07:54 | PCM.DS ---
Discharge Summary Date of Admission: 06/16/23 18:34 Date of Discharge: 06/19/23 Admitting Physician: ANDREI LOGAN MD Consults: Consults on Case 06/18/23 10:20 Consult Neurology ROUTINE Primary Care Provider: ANN ALEXIS Allergies Allergies pregabalin [From Lyrica] Adverse Reaction (Severe, Verified 05/20/23 17:35) Hives SOB hives azithromycin [From Zmax] Adverse Reaction (Mild, Verified 05/20/23 17:35) vomiting Hospital Summary - Hospital Course Hospital Course: This is a 53-year-old male admitted for pain management. 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 He presented to the ED stating he was having another flare reporting pain in his neck going down the back and into his legs. He reports recurrent flareups and refused tx to a higher level of care. Since admission he has been afebrile and vital signs are stable. He continues to have pain today in his neck and back. Pain is improved from admission but not from yesterday. Current plan is pain control with Dilaudid CUSTOMER SERVICE REPRESENTATIVE TEACHER, Solu-Cortef, acyclovir. Discuss ed labs and CT results. Pt discussed he is f/u with a new pain management physican for better pain control OP. Advised he also needs to f/u OP neuro cloud services architect at [facility]. Pt verbally aggressive and abusive to this provider. Pt stated that this provider did not need to come into his room if not going to be helpful. This was discussed with staff, warehouse assistant, and nursing staffing coordinator. Explained that staff should not go into room alone due to his concerning behavior. Discussed case with Dr. Logan. Tele-Neurology to be consulted for further evaluation of dx and sxs. - Vitals & Intake/Output Vital Signs: Vital Signs Temperature 97.1 F 06/19/23 07:12 Pulse Rate 78 06/19/23 07:12 Respiratory Rate 18 06/19/23 07:12 Blood Pressure 128/88 06/19/23 07:12 O2 Sat by Pulse Oximetry 98 06/19/23 07:12 Intake & Output: Intake & Output 06/16/23 06/17/23 06/18/23 06/19/23 11:59 11:59 11:59 11:59 Intake Total 1631 5709 3029 Output Total 1999 9562 7050 Balance 1634 1212 329 Weight 112 kg - Lab Result Diagrams: 06/19/23 04:50 06/19/23 04:50 Lab Results-Last 24 Hrs: Lab Results-Last 24 Hours 06/18/23 06/18/23 06/18/23 Range/Units 07:40 07:40 11:49 WBC 10.9 H (4.0-10.5) x10^3/uL RBC 4.28 (4.1-5.6) x10^6/uL Hgb 12.7 (12.5-18.0) g/dL Hct 39.3 L (42-50) % MCV 91.8 (78-100) fL MCH 29.7 (26-32) pg MCHC 32.3 (32-36) g/dL RDW 14.9 H (11.5-14.0) % Plt Count 345 (150-450) x10^3/uL MPV 9.8 (7.5-11.0) fL Sodium 138 (137-145) mmol/L Potassium 4.2 (3.5-5.1) mmol/L Chloride 102 (98-107) mmol/L Carbon Dioxide 30 (22-30) mmol/L Anion Gap 10.0 (5-15) MEQ/L BUN 8 L (9-20) mg/dL Creatinine 0.74 (0.66-1.25) mg/dL Estimated GFR > 60.0 ML/MIN Glucose 182 H (74-106) mg/dL POC Glucometer 350 H (74 to 106) mg/dL Calcium 8.1 L (8.4-10.2) mg/dL Total Bilirubin 0.20 (0.2-1.3) mg/dL AST 31 (17-59) U/L ALT 34 (0-50) U/L Alkaline Phosphatase 93 (38-126) U/L Serum Total Protein 6.2 L (6.3-8.2) g/dL Albumin 3.7 (3.5-5.0) g/dL 06/18/23 06/18/23 06/19/23 Range/Units 16:33 21:44 04:50 WBC 11.9 H (4.0-10.5) x10^3/uL RBC 4.31 (4.1-5.6) x10^6/uL Hgb 12.7 (12.5-18.0) g/dL Hct 40.1 L (42-50) % MCV 93.0 (78-100) fL MCH 29.5 (26-32) pg MCHC 31.7 L (32-36) g/dL RDW 14.8 H (11.5-14.0) % Plt Count 357 (150-450) x10^3/uL MPV 9.5 (7.5-11.0) fL Sodium (137-145) mmol/L Potassium (3.5-5.1) mmol/L Chloride (98-107) mmol/L Carbon Dioxide (22-30) mmol/L Anion Gap (5-15) MEQ/L BUN (9-20) mg/dL Creatinine (0.66-1.25) mg/dL Estimated GFR ML/MIN Glucose (74-106) mg/dL POC Glucometer 91 184 H (74 to 106) mg/dL Calcium (8.4-10.2) mg/dL Total Bilirubin (0.2-1.3) mg/dL AST (17-59) U/L ALT (0-50) U/L Alkaline Phosphatase (38-126) U/L Serum Total Protein (6.3-8.2) g/dL Albumin (3.5-5.0) g/dL 06/19/23 06/19/23 Range/Units 04:50 06:44 WBC (4.0-10.5) x10^3/uL RBC (4.1-5.6) x10^6/uL Hgb (12.5-18.0) g/dL Hct (42-50) % MCV (78-100) fL MCH (26-32) pg MCHC (32-36) g/dL RDW (11.5-14.0) % Plt Count (150-450) x10^3/uL MPV (7.5-11.0) fL Sodium 140 (137-145) mmol/L Potassium 4.4 (3.5-5.1) mmol/L Chloride 103 (98-107) mmol/L Carbon Dioxide 31 H (22-30) mmol/L Anion Gap 10.9 (5-15) MEQ/L BUN 8 L (9-20) mg/dL Creatinine 0.70 (0.66-1.25) mg/dL Estimated GFR > 60.0 ML/MIN Glucose 148 H (74-106) mg/dL POC Glucometer 129 H (74 to 106) mg/dL Calcium 8.3 L (8.4-10.2) mg/dL Total Bilirubin 0.30 (0.2-1.3) mg/dL AST 28 (17-59) U/L ALT 33 (0-50) U/L Alkaline Phosphatase 80 (38-126) U/L Serum Total Protein 5.9 L (6.3-8.2) g/dL Albumin 3.6 (3.5-5.0) g/dL Micro Results-Entire Visit: Microbiology 06/16/23 17:45 Blood Culture - Preliminary Blood 06/16/23 17:10 Blood Culture - Preliminary Blood Accuchecks Date 06/19/23 Date 06/18/23 Date 06/18/23 Time 07:12 Time 11:52 - Procedures and Test Procedures and Tests throughout Hospitalization: Therapy Orders & Screens 06/16/23 21:44 Respiratory Therapy Assessment DAILY Comment: Diagnosis: Mollaret's meningitis Discharge Exam General Appearance: no apparent distress, alert Neurologic Exam: alert, oriented x 3, cooperative, normal mood/affect, nml cerebellar function, sensation nml, No motor deficits Eye Exam: PERRL, EOMI, eyes nml inspection Ears, Nose, Throat Exam: normal ENT inspection, pharynx normal, moist mucous membranes Neck Exam: normal inspection, non-tender, supple, full range of motion Respiratory Exam: normal breath sounds, lungs clear, No respiratory distress Cardiovascular Exam: regular rate/rhythm, normal heart sounds Gastrointestinal/Abdomen Exam: soft, No tenderness, No mass Male Genitalia Exam: deferred Rectal Exam: deferred Back Exam: normal inspection, normal range of motion, No CVA tenderness, No vertebral tenderness Extremity Exam: normal inspection, normal range of motion Skin Exam: normal color, warm, dry Final Diagnosis/Problem List - Final Discharge Diagnosis/Problem (1) Mollaret's meningitis Current Visit: Yes Status: Chronic Assessment & Plan: -Pain control- with Dilaudid CUSTOMER SERVICE REPRESENTATIVE TEACHER -Hydrocortisone -Acyclovir - F/U OP with neuro cloud services architect at [facility] 06/18 - Tele- neurology consult - Toradol added per suggestion of neurology Code(s): G03.2 - BENIGN RECURRENT MENINGITIS [MOLLARET] (2) Cephalgia Current Visit: No Status: Acute Onset Date: ~11/01/18 Assessment & Plan: - pain control Code(s): R51 - HEADACHE * DO NOT USE * (3) Exacerbation of chronic back pain Current Visit: No Status: Acute Onset Date: ~11/01/18 Assessment & Plan: - pain control - F/U with pain management OP Code(s): M54.9 - DORSALGIA, UNSPECIFIED; G89.29 - OTHER CHRONIC PAIN - Discharge Discharge Date: 06/19/23 Disposition: Home, Self-Care Condition: Stable Prescriptions: Continue Enalapril Maleate 10 mg [Vasotec 10 MG] 20 mg PO HS Multivitamin [Multi-Vitamin Daily] 1 each PO DAILY Aspirin 81 mg PO DAILY Testosterone Cypionate 1.25 ml IM UD Duloxetine HCl [Cymbalta] 60 mg PO BID Metformin HCl 500 mg [Glucophage 500 MG] 1,000 mg PO BIDWM Atorvastatin Calcium [Lipitor] 10 mg PO HS Morphine Sulfate Ir 15 mg [Msir 15 mg] 15 mg PO 0600,1200,1800,0000 Mineral Oil 30 ml PO TID Esomeprazole Magnesium [Nexium 24Hr] 40 mg PO HS Lactobacillus Combo No.10 [Probiotic] 2 each PO DAILY Prednisone 5 mg [Deltasone 5 mg] 15 mg PO DAILY Non-Formulary Drug [Non-Formulary Item] 15.6 mg SPINAL DAILY Additional Instructions: REFERRAL WAS SENT TO OUR [facility] DEPARTMENT TO SEE IF THEY CAN HELP MANAGE YOUR CARE. THEY WILL REACH OUT TO YOU. THEIR PHONE NUMBER [phone]
[2023-06-19] MEDS: Acidophilus TABLET PO SCH (09:14)
[2023-06-19] MEDS: MINERAL OIL PO SCH ×3 (09:14→22:39)
[2023-06-19] MEDS: Cymbalta 30 MG Capsule PO SCH ×2 (09:14→22:25)
[2023-06-19] MEDS: ECOTRIN 81 MG PO SCH (09:14)
[2023-06-19] MEDS: ENOXAPARIN SODIUM SQ SCH ×2 (09:18→09:35)
[2023-06-19] MEDS: HYDROMORPHONE 30 MG/30 ML-NS PCA IV PRN ×2 (10:00→19:07)
[2023-06-19] MEDS ORDERED: NARCAN 2 MG/2 ML IV PRN (10:39)
--- NOTE | 2023-06-19 11:21 | PCM.NOTE ---
Date and Time: 06/19/23 1103 Subjective Assessment: This is a 53-year-old male admitted for pain management. 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 He presented to the ED stating he was having another flare reporting pain in his neck going down the back and into his legs. He reports recurrent flareups. He refused transfer to a higher level of care to manage this dx and for further evaluation of sxs. Since admission he has been afebrile and vital signs are stable. He continues to have continued pain in his neck and back. He reports being able to sleep well last night but his pain level is still the same as yesterday. Rates pain 8/10 with pain medication. Nothing makes it worse or better and states his is part of his flares. Current plan is pain control with Dilaudid TECHNICAL SPEC, Solu-Cortef, acyclovir. Per suggestion of neurology Toradol was added yesterday for 48 hours. Discussed again labs and CT results that appear non-concerning. Pt discussed he is f/u with a new pain management physican for better pain control OP. Advised he also needs to f/u OP neuro potato chip sacking machine operator at [facility]. Staff continue to go into room 2 at a time due to his concerning behavior yesterday. Medical records were obtained from his pain management physican. He actually has a Dilaudid pain pump not morphine. When pt was asked about this he explained he thought he had morphine and was not aware it was Dilaudid. His pump was filled on 05-29-23. Pump setting are 8.997mg/day in a 24 hour period. Medication was updated in his MAR. Incident report to be filled out by nursing die engraving supervisor as pt was place on Dilaudid TECHNICAL SPEC on admission and pt has Dilaudid pump. Narcan PRN ordered. Pt stable at this time and denies any other concerns than his back and neck pain. - Review of Systems Constitutional: No Fever, No Chills Eyes: No Symptoms Ears, Nose, & Throat: No Symptoms Respiratory: No Cough, No Short Of Breath Cardiac: No Chest Pain, No Edema, No Syncope Abdominal/Gastrointestinal: No Abdominal Pain, No Nausea, No Vomiting, No Diarrhea Genitourinary Symptoms: No Dysuria Musculoskeletal: Back Pain, Neck Pain Skin: No Rash Neurological: No Dizziness, No Focal Weakness, No Sensory Changes Psychological: No Symptoms Endocrine: No Symptoms Hematologic/Lymphatic: No Symptoms Immunological/Allergic: No Symptoms Objective Exam General Appearance: no apparent distress, alert Neurologic Exam: alert, oriented x 3, cooperative, normal mood/affect, nml cerebellar function, sensation nml, No motor deficits Skin Exam: normal color, warm, dry Eye Exam: PERRL, EOMI, eyes nml inspection Ears, Nose, Throat Exam: normal ENT inspection, pharynx normal, moist mucous membranes Neck Exam: normal inspection, non-tender, supple, full range of motion Respiratory Exam: normal breath sounds, lungs clear, No respiratory distress Cardiovascular Exam: regular rate/rhythm, normal heart sounds Gastrointestinal/Abdomen Exam: soft, No tenderness, No mass Extremity Exam: normal inspection, normal range of motion Back Exam: normal inspection, normal range of motion, point tenderness, No CVA tenderness, No vertebral tenderness Male Genitalia Exam: deferred Rectal Exam: deferred OBJECTIVE DATA Vital Signs: Vital Signs - 24 hr Temp Pulse Resp BP Pulse Ox 06/19/23 10:00 15 97 06/19/23 07:12 97.1 F 78 18 128/88 98 06/19/23 07:04 20 98 06/19/23 05:52 97 06/19/23 03:35 95 06/18/23 23:42 97.2 F 86 22 124/87 97 06/18/23 23:35 22 94 L 06/18/23 19:54 97.0 F 113 H 21 158/80 96 06/18/23 19:38 97 06/18/23 19:35 96 06/18/23 16:00 97.1 F 69 18 115/79 99 06/18/23 11:52 97.8 F 107 H 16 126/65 95 Pain Assessment - Last Documented Pain Intensity 7 Pain Scale Used 0-10 Pain Scale Intake and Output: Intake & Output 06/16/23 06/17/23 06/18/23 06/19/23 11:59 11:59 11:59 11:59 Intake Total 3630 0074 3269 Output Total 1999 4080 4050 Balance 1638 1219 -781 Weight 112 kg Lab Results: Lab Results-Last 24 Hours 06/18/23 06/18/23 06/18/23 Range/Units 11:49 16:33 21:44 WBC (4.0-10.5) x10^3/uL RBC (4.1-5.6) x10^6/uL Hgb (12.5-18.0) g/dL Hct (42-50) % MCV (78-100) fL MCH (26-32) pg MCHC (32-36) g/dL RDW (11.5-14.0) % Plt Count (150-450) x10^3/uL MPV (7.5-11.0) fL Sodium (137-145) mmol/L Potassium (3.5-5.1) mmol/L Chloride (98-107) mmol/L Carbon Dioxide (22-30) mmol/L Anion Gap (5-15) MEQ/L BUN (9-20) mg/dL Creatinine (0.66-1.25) mg/dL Estimated GFR ML/MIN Glucose (74-106) mg/dL POC Glucometer 350 H 91 184 H (74 to 106) mg/dL Calcium (8.4-10.2) mg/dL Total Bilirubin (0.2-1.3) mg/dL AST (17-59) U/L ALT (0-50) U/L Alkaline Phosphatase (38-126) U/L Serum Total Protein (6.3-8.2) g/dL Albumin (3.5-5.0) g/dL 06/19/23 06/19/23 06/19/23 Range/Units 04:50 04:50 06:44 WBC 11.9 H (4.0-10.5) x10^3/uL RBC 4.31 (4.1-5.6) x10^6/uL Hgb 12.7 (12.5-18.0) g/dL Hct 40.1 L (42-50) % MCV 93.0 (78-100) fL MCH 29.5 (26-32) pg MCHC 31.7 L (32-36) g/dL RDW 14.8 H (11.5-14.0) % Plt Count 357 (150-450) x10^3/uL MPV 9.5 (7.5-11.0) fL Sodium 140 (137-145) mmol/L Potassium 4.4 (3.5-5.1) mmol/L Chloride 103 (98-107) mmol/L Carbon Dioxide 31 H (22-30) mmol/L Anion Gap 10.9 (5-15) MEQ/L BUN 8 L (9-20) mg/dL Creatinine 0.70 (0.66-1.25) mg/dL Estimated GFR > 60.0 ML/MIN Glucose 148 H (74-106) mg/dL POC Glucometer 129 H (74 to 106) mg/dL Calcium 8.3 L (8.4-10.2) mg/dL Total Bilirubin 0.30 (0.2-1.3) mg/dL AST 28 (17-59) U/L ALT 33 (0-50) U/L Alkaline Phosphatase 80 (38-126) U/L Serum Total Protein 5.9 L (6.3-8.2) g/dL Albumin 3.6 (3.5-5.0) g/dL Multi-Disciplinary Progress Notes: Multi-Disciplinary Progress Notes 06/18/23 13:59 Case Management Note by Kasie Garcia GREEN END DEPARTMENT SUPERVISOR RAAD STATED TELE NEURO FEELS PATIENT'S APT WITH NEUROIMMUNOLOGY NEEDS TO BE EXPEDITED IF POSSIBLE. CALLED [facility] - THEY REPORT A "URGENT REFERRAL" CAN BE FAXED TO THEM. SHE SPECIFICALLY S/W LEYDA- THE URGENT REFERRAL REVIEWER FOR DR. JUAN MANUEL ROMERO (NEUROIMMUNOLOGY). THEY STATED TO FAX FULL REFERRAL TO [phone] AND THEY WILL REVIEW AND CALL US BACK WITH AN APPOINTMENT. THEY HOWEVER STILL DID NOT GIVE ANY TIME FRAME FOR APPOINTMENT. GREEN END DEPARTMENT SUPERVISOR NOTIFIED- CM WILL CONTINUE TO FOLLOW UP AND CHECK ON STATUS OF REFERRAL. FULL REFERRAL FAXED AND FAX CONFIRMATION RECEIVED Initialized on 06/18/23 13:59 - END OF NOTE 06/18/23 11:07 Case Management Note by Kasie Garcia S/W PATIENT- HE CONTINUES TO DENY ANY NEW NEEDS AT TIME OF DC. HE PLANS TO DC HOME TO HIS PLF AT TIME OF DC Initialized on 06/18/23 11:07 - END OF NOTE Assessment/Plan (1) Mollbekaht's meningitis Current Visit: Yes Status: Chronic Assessment & Plan: -Pain control- with Dilaudid TECHNICAL SPEC -Hydrocortisone -Acyclovir - F/U OP with neuro potato chip sacking machine operator at [facility] 06/18 - Tele- neurology consult - Toradol added for 48 hours per recommendation of neurology - appointment moved up at immunology to next week. 06/19 - Per pain management records pt has a dilaudid pain pump not morphine. - Pt reports no knowledge of having dilaudid in pain pump and thought it was morphine - Narcan added PRN Code(s): G03.2 - BENIGN RECURRENT MENINGITIS [MOLLARET] (2) Cephalgia Current Visit: No Status: Acute Onset Date: ~11/01/18 Assessment & Plan: - pain control Code(s): R51 - HEADACHE * DO NOT USE * (3) Exacerbation of chronic back pain Current Visit: No Status: Acute Onset Date: ~11/01/18 Assessment & Plan: - pain control - F/U with pain management OP DVT: lovenox PPI: Protonix D/C plan: 1-2 days Next of kin Brandi Greene [phone] Code(s): M54.9 - DORSALGIA, UNSPECIFIED; G89.29 - OTHER CHRONIC PAIN
[2023-06-19] MEDS: Sodium Chloride 0.9% 1000 ML 1,000 ML IV SCH (16:47)
[2023-06-19] MEDS: Protonix 40MG Tablet PO SCH (22:25)
[2023-06-19] MEDS: Zocor 10MG PO SCH (22:25)
[2023-06-19] MEDS: Vasotec 10 MG PO SCH (22:25)
[2023-06-19] MEDS: BENADRYL 50 MG/ML IV SCH (23:40)
[2023-06-20] MEDS: HYDROMORPHONE 30 MG/30 ML-NS PCA IV PRN ×2 (02:07→16:17)
[2023-06-20] MEDS: SODIUM CHLORIDE 0.9% IV SCH ×2 (06:39→13:51)
[2023-06-20] MEDS: TORAdol 30 mg Injection IV SCH ×2 (06:39→11:45)
[2023-06-20] MEDS: ZOVIRAX IV SCH ×2 (06:39→13:51)
[2023-06-20] MEDS: MSIR 15 MG PO SCH ×2 (06:40→11:45)
[2023-06-20] MEDS: solu-CORTEF 100MG IV SCH ×2 (06:40→13:45)
[2023-06-20] MEDS: Sterile H2O 10 ml IJ SCH ×2 (06:48→13:45)
[2023-06-20 07:26] VITALS: TEMP 97.1
[2023-06-20] MEDS: Glucophage 500 MG PO SCH (07:42)
--- NOTE | 2023-06-20 07:52 | PCM.DS ---
Discharge Summary Date of Admission: 06/16/23 18:34 Date of Discharge: 06/20/23 Admitting Physician: ANDREI HESTER MD Consults: Consults on Case 06/18/23 10:20 Consult Neurology ROUTINE Primary Care Provider: ANN ALEXIS Allergies Allergies pregabalin [From Lyrica] Adverse Reaction (Severe, Verified 05/20/23 17:35) Hives SOB hives azithromycin [From Zmax] Adverse Reaction (Mild, Verified 05/20/23 17:35) vomiting Hospital Summary - Hospital Course Hospital Course: This is a 53-year-old male admitted for pain management. 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 He presented to the ED stating he was having another flare reporting pain in his neck going down the back and into his legs. He reports recurrent flareups. He refused transfer to a higher level of care to manage this dx and for further evaluation of sxs. Since admission he has been afebrile and vital signs are stable. He continued to have pain in his neck and back throughout the stay with no further neurological deficits on exam. During this visit the plan included pain control with Dilaudid COMPOSITE LAYUP WORKER, Solu-Cortef, acyclovir. Per suggestion of neurology Toradol was added 2 days ago for 48 hours. Discussed again labs and CT results that appear non-concerning. Discussed with pt he is f/u with a new pain management physican for better pain control OP. Advised he also needs to f/u OP neuro compliance intern at [facility] as scheduled Thursday. Staff continue to go into room 2 at a time due to his concerning behavior 2 days ago that was aggressive and verbally abusive. Medical records were obtained from his pain management physican. He actually has a Dilaudid pain pump not morphine. When pt was asked about this he explained he thought he had morphine and was not aware it was Dilaudid. His pump was filled on 05-29-23. Pump setting are 8.997mg/day in a 24 hour period. Medication was updated in his DEC. Narcan PRN ordered. Pt stable at this time and denies any other concerns than his back and neck pain. Pain has improved since started starting toradol. His pain level is a 6/10 today. He would like to go home after his dose of acyclovir. Per recommend ation of neurology, for future visits to this hospital, she recommended transfer to higher level of care for further evaluation of sxs and to not only treat pain. - Vitals & Intake/Output Vital Signs: Vital Signs Temperature 97.1 F 06/20/23 07:22 Pulse Rate 79 06/20/23 07:22 Respiratory Rate 17 06/20/23 07:22 Blood Pressure 129/76 06/20/23 07:22 O2 Sat by Pulse Oximetry 95 06/20/23 07:35 Intake & Output: Intake & Output 06/17/23 06/18/23 06/19/23 06/20/23 11:59 11:59 11:59 11:59 Intake Total 3632 7594 1599 2168 Output Total 2495 7506 4050 1400 Balance 1638 1219 -781 768 Weight 112 kg - Lab Result Diagrams: 06/19/23 04:50 06/19/23 04:50 Lab Results-Last 24 Hrs: Lab Results-Last 24 Hours 06/19/23 06/19/23 06/19/23 Range/Units 11:04 16:35 20:47 POC Glucometer 225 H 320 H 247 H (74 to 106) mg/dL 06/20/23 Range/Units 07:02 POC Glucometer 141 H (74 to 106) mg/dL Micro Results-Entire Visit: Microbiology 06/16/23 17:45 Blood Culture - Preliminary Blood 06/16/23 17:10 Blood Culture - Preliminary Blood Accuchecks Date 06/20/23 Date 06/19/23 Date 06/19/23 Date 06/19/23 Time 07:22 Time 21:00 Time 16:45 Time 11:31 - Procedures and Test Procedures and Tests throughout Hospitalization: Therapy Orders & Screens 06/16/23 21:44 Respiratory Therapy Assessment DAILY Comment: Diagnosis: Mollaret's meningitis Discharge Exam General Appearance: no apparent distress, alert Neurologic Exam: alert, oriented x 3, cooperative, normal mood/affect, nml cerebellar function, sensation nml, No motor deficits Eye Exam: PERRL, EOMI, eyes nml inspection Ears, Nose, Throat Exam: normal ENT inspection, pharynx normal, moist mucous membranes Neck Exam: normal inspection, non-tender, supple, full range of motion Respiratory Exam: normal breath sounds, lungs clear, No respiratory distress Cardiovascular Exam: regular rate/rhythm, normal heart sounds Gastrointestinal/Abdomen Exam: soft, No tenderness, No mass Male Genitalia Exam: deferred Rectal Exam: deferred Back Exam: normal inspection, normal range of motion, point tenderness (cervical, thoracic, and lumbar regions), No CVA tenderness, No vertebral tenderness Extremity Exam: normal inspection, normal range of motion Skin Exam: normal color, warm, dry Final Diagnosis/Problem List - Final Discharge Diagnosis/Problem (1) Mollaret's meningitis Current Visit: Yes Status: Chronic Assessment & Plan: -Pain control- with Dilaudid COMPOSITE LAYUP WORKER -Hydrocortisone -Acyclovir - F/U OP with neuro compliance intern at [facility] 06/18 - Tele- neurology consult- recomendations reviwed and agree with plan of care - Per recommendations pt need to f/u for further eval and tx at [facility] and pain management - Toradol added for 48 hours per recommendation of neurology - appointment moved up at [facility] to next week. 06/19 - Per pain management records pt has a dilaudid pain pump not morphine. - Pt reports no knowledge of having dilaudid in pain pump and thought it was morphine - Narcan added PRN 06/20 - Pain improved wants to go home today after next dose of Acyclovir Code(s): G03.2 - BENIGN RECURRENT MENINGITIS [MOLLARET] (2) Cephalgia Current Visit: No Status: Acute Onset Date: ~11/01/18 Assessment & Plan: - pain control Code(s): R51 - HEADACHE * DO NOT USE * (3) Exacerbation of chronic back pain Current Visit: No Status: Acute Onset Date: ~11/01/18 Assessment & Plan: - pain control - F/U with pain management OP D/C plan home F/U with pain management and immunology next week. Code(s): M54.9 - DORSALGIA, UNSPECIFIED; G89.29 - OTHER CHRONIC PAIN - Discharge Discharge Date: 06/20/23 Disposition: Home, Self-Care Condition: Stable Prescriptions: Continue Enalapril Maleate 10 mg [Vasotec 10 MG] 20 mg PO HS Multivitamin [Multi-Vitamin Daily] 1 each PO DAILY Aspirin 81 mg PO DAILY Testosterone Cypionate 1.25 ml IM UD Duloxetine HCl [Cymbalta] 60 mg PO BID Metformin HCl 500 mg [Glucophage 500 MG] 1,000 mg PO BIDWM Atorvastatin Calcium [Lipitor] 10 mg PO HS Morphine Sulfate Ir 15 mg [Msir 15 mg] 15 mg PO 0600,1200,1800,0000 Mineral Oil 30 ml PO TID Esomeprazole Magnesium [Nexium 24Hr] 40 mg PO HS Lactobacillus Combo No.10 [Probiotic] 2 each PO DAILY Prednisone 5 mg [Deltasone 5 mg] 15 mg PO DAILY No Action Non-Formulary Drug [Non-Formulary Bulk Item] 0 mg INTSPINE DAILY Additional Instructions: REFERRAL WAS SENT TO OUR ACO DEPARTMENT TO SEE IF THEY CAN HELP MANAGE YOUR CARE. THEY WILL REACH OUT TO YOU. THEIR PHONE NUMBER IS [phone] Follow up with: JUAN MANUEL ROMERO MD [NON-STAFF PHY W/O PRIVILEGES] - 06/23/23 10:45 am (KEEP THE APPOINTMENT WITH DR. ROMERO, HIS NURSE IS EMAILING YOU DIRECTIONS AND INFORMATION FOR YOUR APPOINTMENT.)
[2023-06-20] MEDS: Cymbalta 30 MG Capsule PO SCH (09:31)
[2023-06-20] MEDS: ECOTRIN 81 MG PO SCH (09:32)
[2023-06-20] MEDS: Acidophilus TABLET PO SCH (09:32)
[2023-06-20] MEDS: ENOXAPARIN SODIUM SQ SCH (09:32)
[2023-06-20] MEDS: MINERAL OIL PO SCH (09:34)
[2023-06-20] MEDS: HUMALOG SQ SCH ×2 (11:46→11:47)
[2023-06-20 11:54] VITALS: BP 137/73; PULSE 94; RESP 17; O2SAT 94
== END 2023-06-20 15:35 | disposition home or self-care (01) ==
LOC: ED 15:46 → MED SURG 18:34
PROVIDERS: ADMIT Internal Medicine; ATTEND Internal Medicine
DX: G03.2 Benign recurrent meningitis [Mollaret] (principal); M54.9 Dorsalgia, unspecified; G89.29 Other chronic pain; E78.5 Hyperlipidemia, unspecified; I10 Essential (primary) hypertension; E11.9 Type 2 diabetes mellitus without complications; Z79.899 Other long term (current) drug therapy; Z20.828 Contact with and (suspected) exposure to other viral communicable diseases
CPT/HCPCS: 36000; 36415; 70450; 80048; 80053; 82947; 83735; 85025; 85027; 87040; 93041; 93268; 94760; 94762; 96365; 96367; 96374; 99284; G0378; Q3014; J0133; J1170; J1200; J1650; J1720; J1817; J1885; A9270-GY

== ENCOUNTER 2023-07-19 15:04 | Emergency (ER) | payer BC ==
[2023-07-19 15:26] VITALS: RESP 20; TEMP 97.6; O2SAT 97
[2023-07-19] MEDS ORDERED: Hydromorphone 1 mg/ml Injection IV ONE (15:46)
[2023-07-19] MEDS ORDERED: BENADRYL 50 MG/ML IV ONE (15:47)
[2023-07-19] MEDS ORDERED: TORAdol 30 mg Injection IV ONE (15:54)
--- NOTE | 2023-07-19 16:14 | ERPHSYRPT ---
- History of Present Illness Time Seen by Provider: 07/19/23 15:40 Source: patient Exam Limitations: no limitations Patient Subjective Stated Complaint: PT states "My new pain dr said that he thinks my pump is messed up and I am not getting the pain meds like I should be and when that gets fixed I should not have these flair ups." Triage Nursing Assessment: Pt presented alert and oriented X 3, skin pwd. Pt ambulates with an upright steady gait, able to speak in clear full sentences. Pt resting comfortably on the bed in no apparent respiratory dsitress. 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 Timing/Duration: day(s) (2) Method of Injury: other (Patient has had flareups of transverse myelitis from past Mollaret's meningitis that causes him severe pain that is unrelenting. He had been multiple multiple times in the past for this.) Quality: sharp, aching Back Pain Location: C-spine, T-spine, lumbar spine Severity of Pain-Max: severe Severity of Pain-Current: severe Modifying Factors: Improves With: nothing (Patient states he has a pain pump in place that gives him Dilaudid but it is at a place that was found 3 days ago, but he is awaiting insurance prior authorization before he gets replacement of the pain pump) Associated Symptoms: lower back pain, No fever, No chills, No sweating, No urinary incontinence, No loss of bowel control, No constipation, No nausea, No vomiting, No problems urinating, No light-headedness, No dizziness, No numbness in legs/feet, No weakness, No sensory/motor loss, No muscle spasms Previous symptoms: same symptoms as today, recently seen, recent hospitalization, recently treated Allergies/Adverse Reactions: pregabalin [From Lyrica] Adverse Reaction (Severe, Verified 05/20/23 17:35) Hives SOB hives azithromycin [From Zmax] Adverse Reaction (Mild, Verified 05/20/23 17:35) vomiting Home Medications: Aspirin 81 mg PO DAILY 01/24/14 [History] Enalapril Maleate 10 mg [Vasotec 10 MG] 20 mg PO HS 01/24/14 [History] Multivitamin [Multi-Vitamin Daily] 1 each PO DAILY 01/24/14 [History] Testosterone Cypionate 1.25 ml IM UD 10/09/14 [History] Duloxetine HCl [Cymbalta] 60 mg PO BID 04/23/15 [History] Metformin HCl 500 mg [Glucophage 500 MG] 1,000 mg PO BIDWM 04/20/20 [History] Atorvastatin Calcium [Lipitor] 10 mg PO HS 01/06/22 [History] Morphine Sulfate Ir 15 mg [Msir 15 mg] 15 mg PO 0600,1200,1800,0000 02/07/22 [History] Mineral Oil 30 ml PO TID 10/30/22 [History] Esomeprazole Magnesium [Nexium 24Hr] 40 mg PO HS 12/25/22 [History] Lactobacillus Combo No.10 [Probiotic] 2 each PO DAILY 03/25/23 [History] Prednisone 5 mg [Deltasone 5 mg] 15 mg PO DAILY 05/20/23 [History] Non-Formulary Drug [Non-Formulary Bulk Item] 0 mg INTSPINE DAILY 06/19/23 [History] Hx Tetanus, Diphtheria Vaccination/Date Given: No Hx Influenza Vaccination/Date Given: No Hx Pneumococcal Vaccination/Date Given: No Immunizations Up to Date: No Travel Risk - International Travel Have you traveled outside of the country in past 3 weeks: No - Coronavirus Screening Are you exhibiting any of the following symptoms?: No Close contact with a COVID-19 positive Pt in past 14-21 Days: No - Vaccine Status Have you recieved a Covid-19 vaccination: Yes [employer]: [employer] - Vaccination Dates Dates if Unknown: ? - Review of Systems Constitutional: No Fever, No Chills Eyes: No Symptoms, No Eye Pain, No Photophobia Ears, Nose, & Throat: No Symptoms Respiratory: No Cough, No Dyspnea Cardiac: No Chest Pain, No Edema, No Syncope Abdominal/Gastrointestinal: No Abdominal Pain, No Nausea, No Vomiting, No Diarrhea, No Hematemesis, No Hematochezia Genitourinary Symptoms: No Dysuria, No Flank Pain Musculoskeletal: Back Pain, No Neck Pain Skin: No Rash Neurological: No Dizziness, No Focal Weakness, No Headache, No Sensory Changes Psychological: No Symptoms Endocrine: No Symptoms Hematologic/Lymphatic: No Easy Bleeding, No Easy Bruising All Other Systems: Reviewed and Negative - Past Medical History Pertinent Past Medical History: Yes Neurological History: Paralysis, Seizures ENT History: No Pertinent History Cardiac History: High Cholesterol, Hypertension Respiratory History: Sleep Apnea Endocrine Medical History: Diabetes Type II Musculoskeletal History: No Pertinent History GI Medical History: No Pertinent History History: No Pertinent History Psycho-Social History: Depression Male Reproductive Disorders: No Pertinent History Other Medical History: Mollaret's, spleen removed - Past Surgical History Past Surgical History: Yes Neuro Surgical History: No Pertinent History Cardiac: No Pertinent History Respiratory: No Pertinent History Gastrointestinal: Appendectomy, Other Genitourinary: No Pertinent History Musculoskeletal: No Pertinent History Male Surgical History: Vasectomy Other Surgical History: CONSIDERED PRE-DIABETIC DUE STEROIDS. SPLENECTOMY 1988 - Social History Smoking Status: Never smoker Exposure to second hand smoke: No Alcohol Use: None Drug Use: none Patient Lives Alone: No Significant Family History: no pertinent family hx - Nursing Vital Signs Nursing Vital Signs: Initial Vital Signs Temperature 97.6 F 07/19/23 15:22 Pulse Rate 112 H 07/19/23 15:22 Respiratory Rate 20 07/19/23 15:22 Blood Pressure 138/85 07/19/23 15:22 O2 Sat by Pulse Oximetry 97 07/19/23 15:22 Pain Scale Pain Intensity 8 - Physical Exam General Appearance: no apparent distress, alert Eye Exam: PERRL/EOMI, eyes nml inspection Ears, Nose, Throat Exam: normal ENT inspection, TMs normal, pharynx normal, moist mucous membranes, No TM abnormal (R), No TM abnormal (L) Neck Exam: normal inspection, non-tender, supple, full range of motion, No meningismus, No midline tenderness Respiratory Exam: normal breath sounds, lungs clear, airway intact, No chest tenderness, No respiratory distress, No crackles/rales, No rhonchi, No wheezing Cardiovascular Exam: regular rate/rhythm, normal heart sounds Gastrointestinal Exam: soft, normal bowel sounds, No tenderness, No mass, No guarding Back Exam: No CVA tenderness Extremity Exam: normal inspection, normal range of motion, No calf tenderness, No pedal edema Neurologic Exam: alert, oriented x 3, cooperative, 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, normal mood/affect, nml station & gait, sensation nml, No motor deficits Skin Exam: normal color, warm, dry, No rash SpO2 Interpretation: normal SpO2: 97 O2 Delivery: Room Air - Course Nursing assessment & vital signs reviewed: Yes Ordered Tests: Medication Summary Discontinued Medications Generic Name Dose Route Start Last Admin Trade Name Carolina PRN Reason Stop Dose Admin Diphenhydramine HCl 50 mg 07/19/23 15:47 Diphenhydramine Hcl 50 Mg/Ml Vial IV 07/19/23 15:48 STAT ONE Hydromorphone HCl 2 mg 07/19/23 15:46 Hydromorphone 1 Mg/1ml Inj IV 07/19/23 15:47 STAT ONE Ketorolac Tromethamine 30 mg 07/19/23 15:54 Ketorolac Tromethamine 30 Mg/Ml Inj IV 07/19/23 15:55 STAT ONE - Progress Progress: unchanged Progress Note: 07/19/23 16:00 I reviewed patient's most recent inpatient admission from 06/16/2023 through 06/20/2023 where patient was admitted for pain management with medications to his pain pump was confirmed he was on Dilaudid and not morphine, given IV Toradol, IV Solu-Cortef and IV acyclovir and he did very well after the addition of the Toradol and that it was recommended that patient on his next admission be transferred to a facility of higher level care per neurology's recommendation 07/19/23 16:06 Patient was discussed with Alice Saavedra, [facility] hospitalist who managed the patient and his last admission 1 month ago and I reviewed her discharge summary with her and she knew very well. Patient had telemetry neurology consultation at time and it was found that patient most likely does not have any issues from his past Mollaret's meningitis leading to his transverse myelitis history they states and that most likely patient has a chronic pain issue that needs addressed. Patient at that visit was told that he is to follow-up with his neurologist and pain management as an inpatient as the teleneurologist stated that only management of his symptoms as an inpatient is not the full evaluation and that when he has a flareup he should be admitted at a facility with neuro logy coverage at the very least for continued evaluation. Alice discussed the patient with Dr. Pardo, patient's physician, who has done his past admissions and Dr. Pardo was in agreement with what ever planned the inpatient hospitalist team wanted at that time. 07/19/23 16:32 Discussed the patient with Dr. Grady, hospitalist at [facility], who states that patient is not a candidate for admission at this facility as he needs a facility with neurology coverage, if so they can replace his pain pump and determine if he needs other evaluation and intervention and recommended transfer to facility high-level care 07/19/23 16:49 It was reviewed that patient is not a candidate for admission at this facility after pain management started here in the emergency department, and patient does not want to travel via ambulance to a hospital in [place], [place], so patient will sign out AGAINST MEDICAL ADVICE 07/19/23 17:00 Patient is a 53-year-old male who has a past history of Mollaret's meningitis with transverse myelitis complications who has chronic pain in his back areas that has a pain pump in place who states that his pain pump is now out of place and they found a 3 days ago and has had a flareup of pain over the last 2 days. He has expectation of being admitted for intractable pain in the past by his previous physicians and was most recently admitted 1 month ago and at that time he had teleneurology consultation and after reviewing his discharge summary as well as discussion with his provider who took care of from the hospital, it was found that patient should be evaluated by neurology when he has a flareup and sent to facility with higher level care and resources that this facility has. When I reviewed this with the patient, he declined transfer via ambulance, and was able to get up and walk on his own before signing any AMA forms. Patient did not have any signs of meningeal irritation on my examination, had no focal neurologic deficits and again was able to drive himself here and able to drive himself home. Patient does have pain medicine at home and he does have body painter, Dr. Cazares and neurology, Dr. Alcantara as an outpatient he can follow-up with as he states he supposed to have his pain pump changed. Patient was reviewed the importance of follow-up, and he does have a local physician he can follow-up with, Dr. Pardo, and patient may return back to this emergency department at any time if he has any new perineal numbness, new saddle paresthesias, new urinary retention, new bilateral radicular symptoms, new focal weakness or loss sensation in his legs, new abdominal pain, new melena, hematochezia, hematuria, new flank pain, new chest pain, new fever, new dyspnea or any other concerning signs or symptoms that were not present at today's emergency room visit for immediate reevaluation in the nearest emergency department. Counseled pt/family regarding: diagnosis, need for follow-up Medical Desision Making - External Record(s) Reviewed Records reviewed as a part of evaluation & management: Discharge Summary - Discussion of managment Care discussed with:: hospitalist Reviewed:: Test results, Need for additional workup Agreed on:: Treatment plan, need for follow-up - Diagnostic Testing Diagnostic Testing (additional info): Reviewed most recent CT of the head as below: [id number] CT/HEAD WITHOUT CONTRAST Indication: Headache. Pain. Multiple contiguous axial images obtained through the head without contrast. Comparison: January 19, 2023 Stable small ovoid hypodensity in the superior sagittal sinus dating back to May 03, 2009 again favored to be benign given stability over the years. No acute intracranial hemorrhage, abnormal extra-axial fluid collection, or mass effect. Fourth ventricle is midline without hydrocephalus. Naranjo-white matter differentiation preserved. Bony calvarium intact. Visualized paranasal sinuses and mastoid air cells are clear. Impression: Stable benign ovoid hyperdensity superior sagittal sinus. No new/acute intracranial abnormalities. Reported by: HEATHER DENG DO Signed by: HEATHER DENG DO Signed date/time: 06/17/23 0843 - Risk of complications The pt has a mod risk of morbidity or mortality based on: Need for prescription drug management The pt has a high risk of morbidity or mortality based on: Decision regarding hospitilization or escalation of hosp level of care - Departure Departure Disposition: AMA Clinical Impression: Acute exacerbation of chronic low back pain, Chronic pain syndrome Condition: Good Critical Care Time: No Referrals: ANN PARDO MD [Primary Care Provider] - Follow up with PCP 1 day Instructions: Chronic Pain (DC) Additional Instructions: Return back to the nearest emergency room if you have new numbness tingling weakness in arms or legs, new numbness pulmonary sick, new inability control your bowel movements, new diarrhea cannot control, new inability urinate, new fever, new abdominal pain, new chest pain, new blood in your urine, new black or red stools, new chest pain, new shortness of breath, new fever or any other concerning signs or symptoms that were not present at today's emergency room visit for immediate reevaluation in the nearest emergency department
[2023-07-19 16:31] VITALS: BP 123/84; PULSE 108
== END 2023-07-19 16:52 | disposition left against medical advice (07) ==
LOC: ED 15:04
DX: G89.4 Chronic pain syndrome (principal); M54.50 Low back pain, unspecified; E78.5 Hyperlipidemia, unspecified; I10 Essential (primary) hypertension; E11.9 Type 2 diabetes mellitus without complications; Z79.84 Long term (current) use of oral hypoglycemic drugs; Z79.891 Long term (current) use of opiate analgesic; Z79.52 Long term (current) use of systemic steroids; Z79.899 Other long term (current) drug therapy
CPT/HCPCS: 99281

== ENCOUNTER 2023-09-03 18:49 | Observation (INO) | payer MEDICARE, BC ==
[2023-09-03] MEDS ORDERED: Zofran 4 MG/2 ML VIAL IV ONE (19:43)
[2023-09-03] MEDS ORDERED: Hydromorphone 1 mg/ml Injection IV ONE (19:43)
[2023-09-03] MEDS ORDERED: Sodium Chloride 0.9% 1000 ML 1,000 ML IV STA (19:43)
[2023-09-03] MEDS ORDERED: solu-MEDROL 125 MG, Sterile H2O 10 ml 2 ML IV ONE ×2 (19:44)
[2023-09-03] MEDS ORDERED: Zofran 4 MG/2 ML VIAL ONE (19:58)
[2023-09-03] MEDS ORDERED: Hydromorphone 1 mg/ml Injection ONE (19:58)
[2023-09-03] MEDS ORDERED: Sodium Chloride 0.9% 1000 ML 1,000 ML ONE (19:58)
[2023-09-03] MEDS ORDERED: Sterile H2O 10 ml IJ ONE (19:58)
[2023-09-03] MEDS ORDERED: solu-MEDROL ONE (19:58)
[2023-09-03 20:14] LABS: Absolute Neutrophil Ct (ANC) 9.22 x10^3/uL (1.4-6.9); BASOPHIL % 0.6 % (0.0-0.4); Basophil (Absolute #) 0.07 x10^3/uL (0-0.4); Eosinophil % 4.9 % (0.00-5.0); Hematocrit 42.7 % (42-50); Hemoglobin 13.8 g/dL (12.5-18.0); IMMATURE GRAN # 0.11 x10^3u/L (0.00-0.03); IMMATURE GRAN % 0.9 % (0.00-0.4); Lymphocyte (Absolute #) 1.47 x10^3/uL (1.0-4.6); Lymphocytes % 11.9 % (24.0-44.0); Mean Cell Volume 90.3 fL (78-100); Mean Corpuscular Hemoglobin 29.2 pg (26-32); Mean Corpuscular Hgb Concent. 32.3 g/dL (32-36); Mean Platelet Volume 9.4 fL (7.5-11.0); Monocyte (Absolute #) 0.86 x10^3/uL (0.0-1.3); Neutrophil % 74.7 % (36.0-66.0); Platelet Count 381 x10^3/uL (150-450); Red Blood Count 4.73 x10^6/uL (4.1-5.6); Red Cell Distribution Width 14.3 % (11.5-14.0); White Blood Count 12.3 x10^3/uL (4.0-10.5)
[2023-09-03 20:29] LABS: ALBUMIN 4.3 g/dL (3.5-5.0); ANION GAP 18.5 MEQ/L (5-15); BILIRUBIN,TOTAL 0.4 mg/dL (0.2-1.3); Calcium 9.2 mg/dL (8.4-10.2); Creatinine 1 0.65 mg/dL (0.66-1.25); EST GLOMERULAR FILTRATION RATE 114.1 ML/MIN; Potassium 4.2 mmol/L (3.5-5.1); Total Protein 7.3 g/dL (6.3-8.2)
[2023-09-03] MEDS ORDERED: ZOVIRAX IV ONE (20:36)
[2023-09-03] MEDS ORDERED: D5W MINI IV ONE (20:36)
[2023-09-03] MEDS ORDERED: Zovirax INJ IV ONE (20:42)
[2023-09-03] MEDS ORDERED: D5w 100ML Mini Bag 100 ML 100 ML IV ONE (20:43)
--- NOTE | 2023-09-03 20:57 | ERPHSYRPT ---
- History of Present Illness Time Seen by Provider: 09/03/23 19:38 Source: patient Exam Limitations: no limitations Patient Subjective Stated Complaint: pt here for pain neck and head. it is hes chronic pain, had pain pump changed on thursday, and has morphine at 0.3mg a day, Triage Nursing Assessment: pt alert,walked in. resp easy, skin w/d/p. face flushed, has steri strips to surgical site to left side of abd and steri strips to back, no redness or drainage noted Physician History: 53-year-old male with history of Mollarette syndrome/recurrent viral meningitis, chronic pain on pain management with recent new morphine pain pump implant almost a week ago presented to the ER with 2 days of increasing pain in the neck upper back and head similar to previous episodes of flareups/meningitis. Denies any visual disturbance, numbness tingling focal weakness. Able to move his neck but painful. Patient was evaluated today pain management who placed the pump to look for any signs of infection and was negative. No abdominal pain nausea vomiting, cough or difficulty breathing reported. Patient has been seen in the ER multiple times in the past with similar symptoms. Allergies/Adverse Reactions: pregabalin [From Lyrica] Adverse Reaction (Severe, Verified 09/03/23 18:58) Hives SOB hives azithromycin [From Zmax] Adverse Reaction (Mild, Verified 09/03/23 18:58) vomiting Home Medications: Aspirin 81 mg PO DAILY 01/24/14 [History] Enalapril Maleate 10 mg [Vasotec 10 MG] 20 mg PO HS 01/24/14 [History] Multivitamin [Multi-Vitamin Daily] 1 each PO DAILY 01/24/14 [History] Testosterone Cypionate 1.25 ml IM UD 10/09/14 [History] Duloxetine HCl [Cymbalta] 60 mg PO BID 04/23/15 [History] Metformin HCl 500 mg [Glucophage 500 MG] 1,000 mg PO BIDWM 04/20/20 [History] Atorvastatin Calcium [Lipitor] 10 mg PO HS 01/06/22 [History] Morphine Sulfate Ir 15 mg [Msir 15 mg] 30 mg PO 0600,1200,1800,0000 02/07/22 [History] Mineral Oil 30 ml PO TID 10/30/22 [History] Esomeprazole Magnesium [Nexium 24Hr] 40 mg PO HS 12/25/22 [History] Lactobacillus Combo No.10 [Probiotic] 2 each PO DAILY 03/25/23 [History] Prednisone 5 mg [Deltasone 5 mg] 15 mg PO DAILY 05/20/23 [History] Non-Formulary Drug [Non-Formulary Bulk Item] 0 mg INTSPINE DAILY 06/19/23 [History] Hx Tetanus, Diphtheria Vaccination/Date Given: No Hx Influenza Vaccination/Date Given: No Hx Pneumococcal Vaccination/Date Given: No Travel Risk - International Travel Have you traveled outside of the country in past 3 weeks: No - Coronavirus Screening Are you exhibiting any of the following symptoms?: No Close contact with a COVID-19 positive Pt in past 14-21 Days: No - Vaccine Status Have you recieved a Covid-19 vaccination: Yes 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 - Review of Systems Constitutional: Fever, Chills, Fatigue Eyes: No Symptoms Ears, Nose, & Throat: No Symptoms Respiratory: No Symptoms Cardiac: No Symptoms Abdominal/Gastrointestinal: No Symptoms Genitourinary Symptoms: No Symptoms Musculoskeletal: Back Pain, Neck Pain Skin: No Symptoms Neurological: Headache Psychological: No Symptoms Endocrine: No Symptoms Immunological/Allergic: No Symptoms - Past Medical History Pertinent Past Medical History: Yes Neurological History: Paralysis, Seizures ENT History: No Pertinent History Cardiac History: High Cholesterol, Hypertension Respiratory History: Sleep Apnea Endocrine Medical History: Diabetes Type II Musculoskeletal History: No Pertinent History GI Medical History: No Pertinent History History: No Pertinent History Psycho-Social History: Depression Male Reproductive Disorders: No Pertinent History Other Medical History: Mollaret's, spleen removed - Past Surgical History Past Surgical History: Yes Neuro Surgical History: No Pertinent History Cardiac: No Pertinent History Respiratory: No Pertinent History Gastrointestinal: Appendectomy, Other Genitourinary: No Pertinent History Musculoskeletal: No Pertinent History Male Surgical History: Vasectomy Other Surgical History: CONSIDERED PRE-DIABETIC DUE STEROIDS. SPLENECTOMY 1988 - Social History Smoking Status: Never smoker Exposure to second hand smoke: No Alcohol Use: None Drug Use: none Patient Lives Alone: No Significant Family History: no pertinent family hx - Nursing Vital Signs Nursing Vital Signs: Initial Vital Signs Temperature 98.7 F 09/03/23 19:04 Pulse Rate 112 H 09/03/23 19:04 Respiratory Rate 18 09/03/23 19:04 Blood Pressure 147/100 09/03/23 19:04 O2 Sat by Pulse Oximetry 99 09/03/23 19:04 Pain Scale Pain Intensity 5 - Physical Exam General Appearance: no apparent distress, alert Eye Exam: PERRL/EOMI Ears, Nose, Throat Exam: normal ENT inspection, TMs normal, pharynx normal, moist mucous membranes Neck Exam: normal inspection, non-tender, supple, full range of motion Respiratory Exam: normal breath sounds, lungs clear Cardiovascular Exam: normal heart sounds, tachycardia Gastrointestinal/Abdomen Exam: soft, normal bowel sounds, other (Pump area appropriate redness. No increased temperature. Appropriate tenderness. Well-healing incisions.), No tenderness Extremity Exam: normal inspection, normal range of motion Neurologic Exam: alert, oriented x 3, cooperative Skin Exam: normal color, other (Healing incision in the lower back.) SpO2 Interpretation: normal SpO2: 99 O2 Delivery: Room Air Ordered Tests: Active Orders 24 hr Category Date Time Status IV Insertion STAT Care 09/03/23 19:43 Active BLOOD CULTURE Stat Lab 09/03/23 20:10 Received CBC W DIFF Stat Lab 09/03/23 20:10 Completed CMP Stat Lab 09/03/23 20:10 Completed Lactic Acid Stat Lab 09/03/23 20:11 Completed UA W/RFX UR CULTURE Stat Lab 09/03/23 21:41 Received Medication Summary Discontinued Medications Generic Name Dose Route Start Last Admin Trade Name Freq PRN Reason Stop Dose Admin Acyclovir Sodium Confirm 09/03/23 20:42 Acyclovir Sodium 500 Mg/Vial Vial Administered 09/03/23 20:43 Dose 1,000 mg IV .STK-MED ONE Methylprednisolone Sodium 0 mg 09/03/23 19:44 09/03/23 20:05 Succinate 125 mg/ Sterile IV 09/03/23 19:45 125 mg Water 2 ml STAT ONE Administration Hydromorphone HCl 1 mg 09/03/23 19:43 09/03/23 20:05 Hydromorphone 1 Mg/1ml Inj IV 09/03/23 19:44 1 mg STAT ONE Administration Hydromorphone HCl Confirm 09/03/23 19:58 Hydromorphone 1 Mg/1ml Inj Administered 09/03/23 19:59 Dose 1 mg .ROUTE .STK-MED ONE Sodium Chloride 1,000 mls @ 999 mls/hr 09/03/23 19:43 09/03/23 20:05 Sodium Chloride 0.9% 1000 Ml IV 09/03/23 20:43 999 mls/hr .Q1H1M STA Administration Sodium Chloride Confirm 09/03/23 19:58 Sodium Chloride 0.9% 1000 Ml Administered 09/03/23 19:59 Dose 1,000 mls @ ud .ROUTE .STK-MED ONE Acyclovir Sodium 1,000 mg/ 100 mls @ 100 mls/hr 09/03/23 20:36 09/03/23 20:46 Dextrose IV 09/03/23 21:35 100 mls/hr STAT ONE Administration Dextrose Confirm 09/03/23 20:43 D5w 100ml Mini Bag 100 Ml Administered 09/03/23 20:44 Dose 100 mls @ ud IV .STK-MED ONE Methylprednisolone Sodium Succinate Confirm 09/03/23 19:58 Methylprednis Sod Succ 125 Mg/2 Ml Vial Administered 09/03/23 19:59 Dose 125 mg .ROUTE .STK-MED ONE Ondansetron HCl 4 mg 09/03/23 19:43 09/03/23 20:05 Ondansetron Hcl 4 Mg/2 Ml Vial IV 09/03/23 19:44 4 mg STAT ONE Administration Ondansetron HCl Confirm 09/03/23 19:58 Ondansetron Hcl 4 Mg/2 Ml Vial Administered 09/03/23 19:59 Dose 4 mg .ROUTE .STK-MED ONE Sterile Water Confirm 09/03/23 19:58 Water For Injection,Sterile 10 Ml Vial Administered 09/03/23 19:59 Dose 10 ml IJ .STK-MED ONE Lab/Rad Data: Laboratory Result Diagrams 09/03/23 20:10 09/03/23 20:10 Laboratory Results 09/03/23 09/03/23 09/03/23 Range/Units 20:11 20:10 20:10 WBC 12.3 H (4.0-10.5) x10^3/uL RBC 4.73 (4.1-5.6) x10^6/uL Hgb 13.8 (12.5-18.0) g/dL Hct 42.7 (42-50) % MCV 90.3 (78-100) fL MCH 29.2 (26-32) pg MCHC 32.3 (32-36) g/dL RDW 14.3 H (11.5-14.0) % Plt Count 381 (150-450) x10^3/uL MPV 9.4 (7.5-11.0) fL Gran % 74.7 H (36.0-66.0) % Immature Gran % (Auto) 0.9 H (0.00-0.4) % Nucleat RBC Rel Count 0.0 (0.00-0.1) % Eos # (Auto) 0.60 H (0-0.5) x10^3/uL Immature Gran # (Auto) 0.11 H (0.00-0.03) x10^3u/L Absolute Lymphs (auto) 1.47 (1.0-4.6) x10^3/uL Absolute Monos (auto) 0.86 (0.0-1.3) x10^3/uL Absolute Nucleated RBC 0.00 (0.00-0.01) x10^3u/L Lymphocytes % 11.9 L (24.0-44.0) % Monocytes % 7.0 (0.0-12.0) % Eosinophils % 4.9 (0.00-5.0) % Basophils % 0.6 (0.0-0.4) % Absolute Granulocytes 9.22 H (1.4-6.9) x10^3/uL Basophils # 0.07 (0-0.4) x10^3/uL Sodium 135 L (137-145) mmol/L Potassium 4.2 (3.5-5.1) mmol/L Chloride 96 L (98-107) mmol/L Carbon Dioxide 24 (22-30) mmol/L Anion Gap 18.5 H (5-15) MEQ/L BUN 8 L (9-20) mg/dL Creatinine 0.65 L (0.66-1.25) mg/dL Estimated GFR 114.1 ML/MIN Glucose 154 H (74-106) mg/dL Lactic Acid 3.0 H (0.4-2.0) Calcium 9.2 (8.4-10.2) mg/dL Total Bilirubin 0.40 (0.2-1.3) mg/dL AST 41 (17-59) U/L ALT 36 (0-50) U/L Alkaline Phosphatase 129 H (38-126) U/L Serum Total Protein 7.3 (6.3-8.2) g/dL Albumin 4.3 (3.5-5.0) g/dL - Progress Progress: improved, pain not gone completely, re-examined Progress Note: 09/03/23 20:58 53-year-old male with history of Mollarette syndrome/recurrent viral meningitis, chronic pain on pain management with recent new morphine pain pump implant almost a week ago presented to the ER with 2 days of increasing pain in the neck upper back and head similar to previous episodes of flareups/meningitis. Denies any visual disturbance, numbness tingling focal weakness. Able to move his neck but painful. Patient was evaluated today pain management who placed the pump to look for any signs of infection and was negative. No abdominal pain nausea vomiting, cough or difficulty breathing reported. Patient has been seen in the ER multiple times in the past with similar symptoms. Patient has nonfocal neuro exam throughout her stay in the ER. He is given symptomatic treatment with Dilaudid along with Solu-Medrol and started on acyclovir. Work-up showed white count of 12, lactate of 3.0. Blood cultures are obtained. Has a gap of 18.5. Given fluids bolus. Hospitalist is paged 09/03/23 21:[address] Forrester and patient is accepted for admission. Discussed with patient and family who understand and agree with it Discussed with .: Romeo ([id number]) Counseled pt/family regarding: lab results, diagnosis Medical Desision Making - Independent Historian Additional History obtained from: Family - Discussion of managment Care discussed with:: hospitalist Reviewed:: Test results Agreed on:: Treatment plan Will see patient: in hospital - Diagnostic Testing Diagnostic test were ordered, analyzed, and reviewed by me: Yes Radiological Interpretation: Reviewed by me - Risk of complications The pt has a high risk of morbidity or mortality based on: Decision regarding hospitilization or escalation of hosp level of care - Departure Departure Disposition: Observation Clinical Impression: Viral meningitis Condition: Stable Critical Care Time: No Referrals: ANN ALEXIS MD [Primary Care Provider] - Follow up/PCP as directed
[2023-09-03 21:47] LABS: Appearance Clear (Clear); Bacteria None Seen /HPF (None Seen); Bilirubin Negative (Negative); Blood Negative (Negative); Epithelial Cells None Seen /HPF (None Seen); Glucose, Urine Negative (Negative); Hyaline Casts NONE SEEN /LPF (0-2); Ketones Negative (Negative); Leukocyte Esterase Negative (Negative); Nitrite Negative (Negative); Protein,Urine Dip Negative (Negative); RBC 0-2 /HPF (0-5); Specific Gravity 1.015 (1.005-1.030); Urobilinogen 0.2 mg/dL (0.2); WBC 0-2 /HPF (0-5)
[2023-09-03 21:48] LABS: ADD URINE CULTURE? NO (NO)
[2023-09-03] MEDS ORDERED: TESTOSTERONE CYPIONATE 100 MG/ML IM SCH (23:00)
[2023-09-03] MEDS ORDERED: NON-FORMULARY ITEM (Morphine Sulfate Cr 30 Mg*** 30 MG Tablet.Sa) PO SCH (23:00)
[2023-09-03] MEDS ORDERED: Ms Contin 15 MG PO ONE ×2 (23:16→23:19)
[2023-09-03] MEDS ORDERED: Zofran 4 MG/2 ML VIAL IV PRN (23:31)
[2023-09-03] MEDS ORDERED: TYLENOL 325 MG PO PRN (23:31)
[2023-09-03] MEDS ORDERED: Docusate Sodium 100 MG PO PRN (23:31)
[2023-09-03] MEDS: Hydromorphone 1 mg/ml Injection IV PRN (23:41)
--- NOTE | 2023-09-04 00:40 | PCM.HP ---
History of Present Illness - Chief Complaint Chief Complaint: Viral meningitis Date: 09/03/23 History of Present Illness: is a 53 year old male with a history of Mollaret syndrome and recurrent viral meningitis with chronic pain (follows with pain management and had a morphine pump implanted approximately 1 week ago) who now presents to the hospital with recurrent, increasing upper neck and upper back pain and headache consistent with prior flares. He has not reported visual disturbance, convulsions, numbness, tingling, or focal weakness, and he requested admission at [facility] due to prior history of [employer] pump administration. The patient denies any fever, nausea or vomiting. . - Review of Systems Constitutional: No Symptoms Eyes: No Symptoms Ears, Nose, & Throat: No Symptoms Respiratory: No Symptoms Cardiac: No Symptoms Abdominal/Gastrointestinal: No Symptoms Genitourinary Symptoms: No Symptoms Musculoskeletal: Back Pain, Neck Pain Skin: No Symptoms Neurological: Headache Psychological: No Symptoms Endocrine: No Symptoms Hematologic/Lymphatic: No Symptoms Immunological/Allergic: No Symptoms All Other Systems: Reviewed and Negative Medications & Allergies Home Medications: Home Medication List Aspirin 81 mg PO DAILY 01/24/14 [History Confirmed 09/03/23] Enalapril Maleate 10 mg [Vasotec 10 MG] 20 mg PO HS 01/24/14 [History Confirmed 09/03/23] Multivitamin [Multi-Vitamin Daily] 1 each PO DAILY 01/24/14 [History Confirmed 09/03/23] Testosterone Cypionate 1.25 ml IM UD 10/09/14 [History Confirmed 09/03/23] Duloxetine HCl [Cymbalta] 60 mg PO BID 04/23/15 [History Confirmed 09/03/23] Metformin HCl 500 mg [Glucophage 500 MG] 1,000 mg PO BIDWM 04/20/20 [History Confirmed 09/03/23] Atorvastatin Calcium [Lipitor] 10 mg PO HS 01/06/22 [History Confirmed 09/03/23] Mineral Oil 30 ml PO TID 10/30/22 [History Confirmed 09/03/23] Esomeprazole Magnesium [Nexium 24Hr] 40 mg PO HS 12/25/22 [History Confirmed 09/03/23] Lactobacillus Combo No.10 [Probiotic] 2 each PO DAILY 03/25/23 [History Confirmed 09/03/23] Prednisone 5 mg [Deltasone 5 mg] 15 mg PO DAILY 05/20/23 [History Confirmed 09/03/23] Non-Formulary Drug [Non-Formulary Bulk Item] 0 mg INTSPINE DAILY 06/19/23 [History Confirmed 09/03/23] Morphine Sulfate Cr 30 mg [Ms Contin 30 mg] 30 mg PO Q8H 09/03/23 [History Confirmed 09/03/23] Allergies/Adverse Reactions: Allergies Allergy/AdvReac Type Severity Reaction Status Date / Time pregabalin [From Lyrica] AdvReac Severe Hives Verified 09/03/23 18:58 azithromycin [From Zmax] AdvReac Mild Verified 09/03/23 18:58 - Past Medical History Past Medical History: Yes Neurological History: Paralysis, Seizures ENT History: No Pertinent History Cardiac History: High Cholesterol, Hypertension Respiratory History: Sleep Apnea Endocrine Medical History: Diabetes Type II Musculoskelatal History: No Pertinent History GI Medical History: No Pertinent History History: No Pertinent History Pyscho-Social History: Depression Male Reproductive Disorders: No Pertinent History Comment: Mollaret's, spleen removed - Past Surgical History Past Surgical History: Yes Neuro Surgical History: No Pertinent History Cardiac History: No Pertinent History Respiratory Surgery: No Pertinent History GI Surgical History: Appendectomy, Other Genitourinary Surgical Hx: No Pertinent History Musculskeletal Surgical Hx: No Pertinent History Male Surgical History: Vasectomy Other Surgical History: CONSIDERED PRE-DIABETIC DUE STEROIDS. SPLENECTOMY 1988. replaced pain pump and catheter. 08/28/23 - Social History Smoking Status: Never smoker Exposure to second hand smoke: No Alcohol: None Drug Use: none Significant Family History: no pertinent family hx - Physical Exam Vital Signs: Vital Signs - 24 hr Temp Pulse Resp BP BP Pulse Ox 09/04/23 00:00 97.6 F 106 H 18 118/79 97 09/03/23 22:07 97.7 F 93 H 18 132/74 93 L 09/03/23 21:42 99 09/03/23 21:00 94 H 18 136/89 94 L 09/03/23 20:31 92 H 16 144/89 94 L 09/03/23 20:12 91 H 17 151/129 93 L 09/03/23 20:00 90 15 138/101 96 09/03/23 19:04 98.7 F 112 H 18 147/100 99 General Appearance: no apparent distress Neurologic Exam: alert, oriented x 3, 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, 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, normal mood/affect, nml cerebellar function Eye Exam: PERRL/EOMI, eyes nml inspection Ears, Nose, Throat Exam: normal ENT inspection Neck Exam: normal inspection, non-tender, supple, full range of motion Respiratory Exam: normal breath sounds Cardiovascular Exam: regular rate/rhythm, normal heart sounds Gastrointestinal/Abdomen Exam: soft, normal bowel sounds Back Exam: normal range of motion Extremity Exam: normal inspection, normal range of motion Skin Exam: normal color Results - Labs Lab/Micro Results: Lab Results-Last 24 Hours 09/03/23 09/03/23 09/03/23 Range/Units 20:10 20:10 20:11 WBC 12.3 H (4.0-10.5) x10^3/uL RBC 4.73 (4.1-5.6) x10^6/uL Hgb 13.8 (12.5-18.0) g/dL Hct 42.7 (42-50) % MCV 90.3 (78-100) fL MCH 29.2 (26-32) pg MCHC 32.3 (32-36) g/dL RDW 14.3 H (11.5-14.0) % Plt Count 381 (150-450) x10^3/uL MPV 9.4 (7.5-11.0) fL Gran % 74.7 H (36.0-66.0) % Immature Gran % (Auto) 0.9 H (0.00-0.4) % Nucleat RBC Rel Count 0.0 (0.00-0.1) % Eos # (Auto) 0.60 H (0-0.5) x10^3/uL Immature Gran # (Auto) 0.11 H (0.00-0.03) x10^3u/L Absolute Lymphs (auto) 1.47 (1.0-4.6) x10^3/uL Absolute Monos (auto) 0.86 (0.0-1.3) x10^3/uL Absolute Nucleated RBC 0.00 (0.00-0.01) x10^3u/L Lymphocytes % 11.9 L (24.0-44.0) % Monocytes % 7.0 (0.0-12.0) % Eosinophils % 4.9 (0.00-5.0) % Basophils % 0.6 (0.0-0.4) % Absolute Granulocytes 9.22 H (1.4-6.9) x10^3/uL Basophils # 0.07 (0-0.4) x10^3/uL Sodium 135 L (137-145) mmol/L Potassium 4.2 (3.5-5.1) mmol/L Chloride 96 L (98-107) mmol/L Carbon Dioxide 24 (22-30) mmol/L Anion Gap 18.5 H (5-15) MEQ/L BUN 8 L (9-20) mg/dL Creatinine 0.65 L (0.66-1.25) mg/dL Estimated GFR 114.1 ML/MIN Glucose 154 H (74-106) mg/dL Lactic Acid 3.0 H (0.4-2.0) Calcium 9.2 (8.4-10.2) mg/dL Total Bilirubin 0.40 (0.2-1.3) mg/dL AST 41 (17-59) U/L ALT 36 (0-50) U/L Alkaline Phosphatase 129 H (38-126) U/L Serum Total Protein 7.3 (6.3-8.2) g/dL Albumin 4.3 (3.5-5.0) g/dL Urine Color (Yellow) Urine Appearance (Clear) Urine pH (4.6-8.0) Ur Specific [place] (1.005-1.030) Urine Protein (Negative) Urine Glucose (UA) (Negative) mg/dL Urine Ketones (Negative) Urine Blood (Negative) Urine Nitrite (Negative) Urine Bilirubin (Negative) Urine Urobilinogen (0.2) mg/dL Ur Leukocyte Esterase (Negative) U Hyaline Cast (Auto) (0-2) /LPF Urine Microscopic RBC (0-5) /HPF Urine Microscopic WBC (0-5) /HPF Ur Epithelial Cells (None Seen) /HPF Urine Bacteria (None Seen) /HPF Urine Culture Reflexed (NO) 09/03/23 09/03/23 Range/Units 21:41 22:18 WBC (4.0-10.5) x10^3/uL RBC (4.1-5.6) x10^6/uL Hgb (12.5-18.0) g/dL Hct (42-50) % MCV (78-100) fL MCH (26-32) pg MCHC (32-36) g/dL RDW (11.5-14.0) % Plt Count (150-450) x10^3/uL MPV (7.5-11.0) fL Gran % (36.0-66.0) % Immature Gran % (Auto) (0.00-0.4) % Nucleat RBC Rel Count (0.00-0.1) % Eos # (Auto) (0-0.5) x10^3/uL Immature Gran # (Auto) (0.00-0.03) x10^3u/L Absolute Lymphs (auto) (1.0-4.6) x10^3/uL Absolute Monos (auto) (0.0-1.3) x10^3/uL Absolute Nucleated RBC (0.00-0.01) x10^3u/L Lymphocytes % (24.0-44.0) % Monocytes % (0.0-12.0) % Eosinophils % (0.00-5.0) % Basophils % (0.0-0.4) % Absolute Granulocytes (1.4-6.9) x10^3/uL Basophils # (0-0.4) x10^3/uL Sodium (137-145) mmol/L Potassium (3.5-5.1) mmol/L Chloride (98-107) mmol/L Carbon Dioxide (22-30) mmol/L Anion Gap (5-15) MEQ/L BUN (9-20) mg/dL Creatinine (0.66-1.25) mg/dL Estimated GFR ML/MIN Glucose (74-106) mg/dL Lactic Acid 2.8 H (0.4-2.0) Calcium (8.4-10.2) mg/dL Total Bilirubin (0.2-1.3) mg/dL AST (17-59) U/L ALT (0-50) U/L Alkaline Phosphatase (38-126) U/L Serum Total Protein (6.3-8.2) g/dL Albumin (3.5-5.0) g/dL Urine Color Yellow (Yellow) Urine Appearance Clear (Clear) Urine pH 7.0 (4.6-8.0) Ur Specific [place] 1.015 (1.005-1.030) Urine Protein Negative (Negative) Urine Glucose (UA) Negative (Negative) mg/dL Urine Ketones Negative (Negative) Urine Blood Negative (Negative) Urine Nitrite Negative (Negative) Urine Bilirubin Negative (Negative) Urine Urobilinogen 0.2 (0.2) mg/dL Ur Leukocyte Esterase Negative (Negative) U Hyaline Cast (Auto) NONE SEEN (0-2) /LPF Urine Microscopic RBC 0-2 (0-5) /HPF Urine Microscopic WBC 0-2 (0-5) /HPF Ur Epithelial Cells None Seen (None Seen) /HPF Urine Bacteria None Seen (None Seen) /HPF Urine Culture Reflexed NO (NO) Assessment/Plan (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 Cazares, whether [employer] is an option. Overnight, will offer prn IV Dilaudid (1 mg q3h prn) with reassessment. The patient recently had a morphine pump implanted. Complex p ain management history with a recent change from Dr. Greer to Dr. Cazares. Code(s): G03.2 - BENIGN RECURRENT MENINGITIS [MOLLARET] (2) Hypertension Current Visit: No Status: Chronic Onset Date: ~11/01/18 Assessment & Plan: Monitor BP. Code(s): I10 - ESSENTIAL (PRIMARY) HYPERTENSION (3) Diabetes mellitus Current Visit: No Status: Chronic Qualifiers: Assessment & Plan: Will follow sugars on ISS Code(s): E11.9 - TYPE 2 DIABETES MELLITUS WITHOUT COMPLICATIONS Telemedicine Encounter - Telemedicine Encounter Telemedicine Encounter: The entirety of this encounter was performed via Telemedicine"
[2023-09-04] MEDS: Hydromorphone 1 mg/ml Injection IV PRN ×7 (02:58→21:39)
[2023-09-04 04:48] LABS: Hematocrit 41.2 % (42-50); Mean Cell Volume 91.6 fL (78-100); Mean Corpuscular Hemoglobin 28.9 pg (26-32); Mean Corpuscular Hgb Concent. 31.6 g/dL (32-36); Mean Platelet Volume 9.5 fL (7.5-11.0); Platelet Count 361 x10^3/uL (150-450); Red Cell Distribution Width 14.5 % (11.5-14.0); White Blood Count 9.4 x10^3/uL (4.0-10.5)
--- NOTE | 2023-09-04 05:41 | PCM.NOTE ---
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 He has not reported visual disturbance, convulsions, numbness, tingling, or focal weakness, and he requested admission at [facility] due to prior history of [employer] pump administration. 09/04/23: Patient up in chair. Endorses continued 06/11 pain to neck/abdomen (at surgical site). States he feels that his recent surgery 08/28/23 for his pain pump has caused a flare which has resulted in severe pain, unmanageable at home. Recent office notes from Anthony Stephen reviewed s/p catheter/pump replacement. Morphine is now at 0.313mg/day. It is noted that dermabond prineo dressings were causing skin breakdown under dressing at that visit. He still has notable redness to those areas. Patient is also on Morphine ER 30mg q8H prescribed by pain management. Plan is to start solumedrol/acyclovir/ breakthrough pain relief with diluadid 1mg/q3H. Neurology also consulted. Patient states that he has had recent office visit with an MRI planned soon. - Review of Systems Constitutional: No Symptoms Eyes: No Symptoms Ears, Nose, & Throat: No Symptoms Respiratory: No Symptoms Cardiac: No Symptoms Abdominal/Gastrointestinal: Abdominal Pain (to incision site) Genitourinary Symptoms: No Symptoms Musculoskeletal: Joint Pain (neck) Skin: Other (surgical site transverse incision to left abdomen and mid lower back ) Neurological: No Symptoms Psychological: No Symptoms Hematologic/Lymphatic: No Symptoms Objective Exam General Appearance: no apparent distress Neurologic Exam: alert, oriented x 3, cooperative Skin Exam: normal color, other (transverse left abdominal surgical site with surrounding erythema steri strips/mid low back surgical incision with surrounding erythema steri strips) Eye Exam: PERRL Ears, Nose, Throat Exam: normal ENT inspection Neck Exam: normal inspection Respiratory Exam: normal breath sounds, lungs clear Cardiovascular Exam: regular rate/rhythm Gastrointestinal/Abdomen Exam: soft, normal bowel sounds Extremity Exam: normal inspection Back Exam: normal inspection Male Genitalia Exam: deferred Rectal Exam: deferred OBJECTIVE DATA Vital Signs: Vital Signs - 24 hr Temp Pulse Resp BP BP Pulse Ox 09/04/23 04:00 97.6 F 82 17 122/80 95 09/04/23 02:00 90 09/04/23 00:00 97.6 F 106 H 18 118/79 97 09/03/23 22:07 97.7 F 93 H 18 132/74 93 L 09/03/23 21:42 99 09/03/23 21:00 94 H 18 136/89 94 L 09/03/23 20:31 92 H 16 144/89 94 L 09/03/23 20:12 91 H 17 151/129 93 L 09/03/23 20:00 90 15 138/101 96 09/03/23 19:04 98.7 F 112 H 18 147/100 99 Pain Assessment - Last Documented Pain Intensity 6 Pain Scale Used 0-10 Pain Scale Intake and Output: Intake & Output 09/01/23 09/02/23 09/03/23 09/04/23 11:59 11:59 11:59 11:59 Intake Total 480 Output Total 500 Balance -20 Weight 113.2 kg Lab Results: Lab Results-Last 24 Hours 09/03/23 09/03/23 09/03/23 Range/Units 20:10 20:10 20:11 WBC 12.3 H (4.0-10.5) x10^3/uL RBC 4.73 (4.1-5.6) x10^6/uL Hgb 13.8 (12.5-18.0) g/dL Hct 42.7 (42-50) % MCV 90.3 (78-100) fL MCH 29.2 (26-32) pg MCHC 32.3 (32-36) g/dL RDW 14.3 H (11.5-14.0) % Plt Count 381 (150-450) x10^3/uL MPV 9.4 (7.5-11.0) fL Gran % 74.7 H (36.0-66.0) % Immature Gran % (Auto) 0.9 H (0.00-0.4) % Nucleat RBC Rel Count 0.0 (0.00-0.1) % Eos # (Auto) 0.60 H (0-0.5) x10^3/uL Immature Gran # (Auto) 0.11 H (0.00-0.03) x10^3u/L Absolute Lymphs (auto) 1.47 (1.0-4.6) x10^3/uL Absolute Monos (auto) 0.86 (0.0-1.3) x10^3/uL Absolute Nucleated RBC 0.00 (0.00-0.01) x10^3u/L Lymphocytes % 11.9 L (24.0-44.0) % Monocytes % 7.0 (0.0-12.0) % Eosinophils % 4.9 (0.00-5.0) % Basophils % 0.6 (0.0-0.4) % Absolute Granulocytes 9.22 H (1.4-6.9) x10^3/uL Basophils # 0.07 (0-0.4) x10^3/uL Sodium 135 L (137-145) mmol/L Potassium 4.2 (3.5-5.1) mmol/L Chloride 96 L (98-107) mmol/L Carbon Dioxide 24 (22-30) mmol/L Anion Gap 18.5 H (5-15) MEQ/L BUN 8 L (9-20) mg/dL Creatinine 0.65 L (0.66-1.25) mg/dL Estimated GFR 114.1 ML/MIN Glucose 154 H (74-106) mg/dL Lactic Acid 3.0 H (0.4-2.0) Calcium 9.2 (8.4-10.2) mg/dL Total Bilirubin 0.40 (0.2-1.3) mg/dL AST 41 (17-59) U/L ALT 36 (0-50) U/L Alkaline Phosphatase 129 H (38-126) U/L Serum Total Protein 7.3 (6.3-8.2) g/dL Albumin 4.3 (3.5-5.0) g/dL Urine Color (Yellow) Urine Appearance (Clear) Urine pH (4.6-8.0) Ur Specific [place] (1.005-1.030) Urine Protein (Negative) Urine Glucose (UA) (Negative) mg/dL Urine Ketones (Negative) Urine Blood (Negative) Urine Nitrite (Negative) Urine Bilirubin (Negative) Urine Urobilinogen (0.2) mg/dL Ur Leukocyte Esterase (Negative) U Hyaline Cast (Auto) (0-2) /LPF Urine Microscopic RBC (0-5) /HPF Urine Microscopic WBC (0-5) /HPF Ur Epithelial Cells (None Seen) /HPF Urine Bacteria (None Seen) /HPF Urine Culture Reflexed (NO) 09/03/23 09/03/23 09/04/23 Range/Units 21:41 22:18 04:42 WBC 9.4 (4.0-10.5) x10^3/uL RBC 4.50 (4.1-5.6) x10^6/uL Hgb 13.0 (12.5-18.0) g/dL Hct 41.2 L (42-50) % MCV 91.6 (78-100) fL MCH 28.9 (26-32) pg MCHC 31.6 L (32-36) g/dL RDW 14.5 H (11.5-14.0) % Plt Count 361 (150-450) x10^3/uL MPV 9.5 (7.5-11.0) fL Gran % (36.0-66.0) % Immature Gran % (Auto) (0.00-0.4) % Nucleat RBC Rel Count (0.00-0.1) % Eos # (Auto) (0-0.5) x10^3/uL Immature Gran # (Auto) (0.00-0.03) x10^3u/L Absolute Lymphs (auto) (1.0-4.6) x10^3/uL Absolute Monos (auto) (0.0-1.3) x10^3/uL Absolute Nucleated RBC (0.00-0.01) x10^3u/L Lymphocytes % (24.0-44.0) % Monocytes % (0.0-12.0) % Eosinophils % (0.00-5.0) % Basophils % (0.0-0.4) % Absolute Granulocytes (1.4-6.9) x10^3/uL Basophils # (0-0.4) x10^3/uL Sodium (137-145) mmol/L Potassium (3.5-5.1) mmol/L Chloride (98-107) mmol/L Carbon Dioxide (22-30) mmol/L Anion Gap (5-15) MEQ/L BUN (9-20) mg/dL Creatinine (0.66-1.25) mg/dL Estimated GFR ML/MIN Glucose (74-106) mg/dL Lactic Acid 2.8 H (0.4-2.0) Calcium (8.4-10.2) mg/dL Total Bilirubin (0.2-1.3) mg/dL AST (17-59) U/L ALT (0-50) U/L Alkaline Phosphatase (38-126) U/L Serum Total Protein (6.3-8.2) g/dL Albumin (3.5-5.0) g/dL Urine Color Yellow (Yellow) Urine Appearance Clear (Clear) Urine pH 7.0 (4.6-8.0) Ur Specific [place] 1.015 (1.005-1.030) Urine Protein Negative (Negative) Urine Glucose (UA) Negative (Negative) mg/dL Urine Ketones Negative (Negative) Urine Blood Negative (Negative) Urine Nitrite Negative (Negative) Urine Bilirubin Negative (Negative) Urine Urobilinogen 0.2 (0.2) mg/dL Ur Leukocyte Esterase Negative (Negative) U Hyaline Cast (Auto) NONE SEEN (0-2) /LPF Urine Microscopic RBC 0-2 (0-5) /HPF Urine Microscopic WBC 0-2 (0-5) /HPF Ur Epithelial Cells None Seen (None Seen) /HPF Urine Bacteria None Seen (None Seen) /HPF Urine Culture Reflexed NO (NO) 09/04/23 Range/Units 05:22 WBC (4.0-10.5) x10^3/uL RBC (4.1-5.6) x10^6/uL Hgb (12.5-18.0) g/dL Hct (42-50) % MCV (78-100) fL MCH (26-32) pg MCHC (32-36) g/dL RDW (11.5-14.0) % Plt Count (150-450) x10^3/uL MPV (7.5-11.0) fL Gran % (36.0-66.0) % Immature Gran % (Auto) (0.00-0.4) % Nucleat RBC Rel Count (0.00-0.1) % Eos # (Auto) (0-0.5) x10^3/uL Immature Gran # (Auto) (0.00-0.03) x10^3u/L Absolute Lymphs (auto) (1.0-4.6) x10^3/uL Absolute Monos (auto) (0.0-1.3) x10^3/uL Absolute Nucleated RBC (0.00-0.01) x10^3u/L Lymphocytes % (24.0-44.0) % Monocytes % (0.0-12.0) % Eosinophils % (0.00-5.0) % Basophils % (0.0-0.4) % Absolute Granulocytes (1.4-6.9) x10^3/uL Basophils # (0-0.4) x10^3/uL Sodium (137-145) mmol/L Potassium (3.5-5.1) mmol/L Chloride (98-107) mmol/L Carbon Dioxide (22-30) mmol/L Anion Gap (5-15) MEQ/L BUN (9-20) mg/dL Creatinine (0.66-1.25) mg/dL Estimated GFR ML/MIN Glucose (74-106) mg/dL Lactic Acid 2.9 H (0.4-2.0) Calcium (8.4-10.2) mg/dL Total Bilirubin (0.2-1.3) mg/dL AST (17-59) U/L ALT (0-50) U/L Alkaline Phosphatase (38-126) U/L Serum Total Protein (6.3-8.2) g/dL Albumin (3.5-5.0) g/dL Urine Color (Yellow) Urine Appearance (Clear) Urine pH (4.6-8.0) Ur Specific [place] (1.005-1.030) Urine Protein (Negative) Urine Glucose (UA) (Negative) mg/dL Urine Ketones (Negative) Urine Blood (Negative) Urine Nitrite (Negative) Urine Bilirubin (Negative) Urine Urobilinogen (0.2) mg/dL Ur Leukocyte Esterase (Negative) U Hyaline Cast (Auto) (0-2) /LPF Urine Microscopic RBC (0-5) /HPF Urine Microscopic WBC (0-5) /HPF Ur Epithelial Cells (None Seen) /HPF Urine Bacteria (None Seen) /HPF Urine Culture Reflexed (NO) Assessment/Plan (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 Cazares, whether [employer] is an option. Overnight, will offer prn IV Dilaudid (1 mg q3h prn) with reassessment. The patient recently had a morphine pump implanted. Complex pain management history with a recent change from Dr. Greer to Dr. Cazares. 09/04: -records reviewed at stated in subjective, plan to continue current management, will add solumedrol as well as acyclovir Code(s): G03.2 - BENIGN RECURRENT MENINGITIS [MOLLARET] (2) Chronic pain syndrome Current Visit: No Status: Chronic Assessment & Plan: -see above Code(s): G89.4 - CHRONIC PAIN SYNDROME (3) Diabetes mellitus Current Visit: No Status: Chronic Qualifiers: Assessment & Plan: -ADA diet -SSI -A1c Code(s): E11.9 - TYPE 2 DIABETES MELLITUS WITHOUT COMPLICATIONS (4) Hypertension Current Visit: No Status: Chronic Onset Date: ~11/01/18 Assessment & Plan: -Monitor BP, continue home meds Code(s): I10 - ESSENTIAL (PRIMARY) HYPERTENSION
[2023-09-04] MEDS ORDERED: MEDICATION INTERVENTION MC SCH (07:30)
[2023-09-04 07:43] LABS: ALBUMIN 4.1 g/dL (3.5-5.0); ANION GAP 18.9 MEQ/L (5-15); BILIRUBIN,TOTAL 0.4 mg/dL (0.2-1.3); Calcium 9.3 mg/dL (8.4-10.2); Creatinine 1 0.71 mg/dL (0.66-1.25); EST GLOMERULAR FILTRATION RATE 111.1 ML/MIN; Total Protein 6.6 g/dL (6.3-8.2)
[2023-09-04 08:26] LABS: Potassium 5.7 mmol/L (3.5-5.1)
[2023-09-04] MEDS: Ms Contin 15 MG PO SCH ×3 (08:54→21:40)
[2023-09-04] MEDS: Glucophage 500 MG PO SCH ×2 (08:54→17:04)
[2023-09-04] MEDS ORDERED: DELTASONE 5 MG PO SCH (10:00)
[2023-09-04] MEDS ORDERED: solu-MEDROL IV SCH (10:00)
[2023-09-04] MEDS: ECOTRIN 81 MG PO SCH (10:49)
[2023-09-04] MEDS: Acidophilus TABLET PO SCH (10:49)
[2023-09-04] MEDS: Protonix 40MG Tablet PO SCH (10:50)
[2023-09-04] MEDS: Cymbalta 30 MG Capsule PO SCH ×2 (10:50→21:40)
[2023-09-04] MEDS: THERAGRAN MULTIVITAMIN PO SCH (10:51)
[2023-09-04] MEDS: MINERAL OIL PO SCH ×3 (10:51→21:39)
[2023-09-04] MEDS: solu-MEDROL 40 MG, Sterile H2O 10 ml 1 ML IV SCH ×2 (10:57)
[2023-09-04] MEDS: SODIUM CHLORIDE MINI IV SCH ×2 (11:00→18:41)
[2023-09-04] MEDS: ZOVIRAX IV SCH ×2 (11:00→18:41)
[2023-09-04] MEDS ORDERED: BENADRYL 25 MG CAPSULE PO PRN (11:50)
[2023-09-04] MEDS: HUMALOG SQ PRN ×2 (12:13→21:40)
[2023-09-04] MEDS: Docusate Sodium 100 MG PO SCH ×2 (15:09→21:41)
[2023-09-04] MEDS: Vasotec 10 MG PO SCH (21:40)
[2023-09-04] MEDS: Zocor 10MG PO SCH (21:40)
[2023-09-04] MEDS ORDERED: ESOMEPRAZOLE MAGNESIUM 20 MG PO SCH (22:00)
[2023-09-04] MEDS ORDERED: Ms Contin 15 MG PO ONE (23:16)
[2023-09-05] MEDS: ZOVIRAX IV SCH ×3 (00:59→18:05)
[2023-09-05] MEDS: Hydromorphone 1 mg/ml Injection IV PRN ×8 (00:59→22:04)
[2023-09-05] MEDS: SODIUM CHLORIDE MINI IV SCH ×3 (00:59→18:05)
--- NOTE | 2023-09-05 05:34 | PCM.NOTE ---
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 Neurology consult obtained with recommendation for transfer to for LP/higher level of care. Discussed neurology recommendations with patient and the purpose of LP for further treatment plan. Patient declines transfer at this time. He wishes to remain at [facility] with current treatment regimen. 09/04/23: Patient up in chair. Endorses continued 8/10 pain to neck/abdomen (at surgical site). States he feels that his recent surgery 08/28/23 for his pain pump has caused a flare which has resulted in severe pain, unmanageable at home. Recent office notes from Patrick Stephen reviewed s/p catheter/pump replacement. Morphine is now at 0.313mg/day. It is noted that dermabond prineo dressings were causing skin breakdown under dressing at that visit. He still has notable redness to those areas. Patient is also on Morphine ER 30mg q8H prescribed by pain management. Plan is to start solumedrol/acyclovir/ breakthrough pain relief with diluadid 1mg/q3H. Neurology also consulted. Patient states that he has had recent office visit with an MRI planned soon. 09/05/23: Met and examined patient bedside. Endorses improvement of pain overall but still rating pain 7/10. Discussed Neurology recommendation for LP and rationale behind it; patient does decline transfer for this procedures. He states that he is currently following with neurology and has planned testing with MRI and follow up visit in the next month, he will discuss at that time if there is a need for any additional testing needed/LP. Plan is to continue with current treatment regimen, possible discharge tomorrow pending re-eval in the morning. - Review of Systems Constitutional: No Symptoms Eyes: No Symptoms Ears, Nose, & Throat: No Symptoms Respiratory: No Symptoms Cardiac: No Symptoms Abdominal/Gastrointestinal: No Symptoms Genitourinary Symptoms: No Symptoms Musculoskeletal: Neck Pain, Joint Pain Skin: Other (transverse incision to the left lower abdomen/ incision to the mid lower back ) Neurological: No Symptoms Psychological: No Symptoms Endocrine: No Symptoms Objective Exam General Appearance: no apparent distress Neurologic Exam: alert, oriented x 3, cooperative Skin Exam: normal color, other (transverse incision to the left lower abdomen/ incision to the mid lower back with steri strips some erythema from previous reaction to dressing) Eye Exam: PERRL Ears, Nose, Throat Exam: normal ENT inspection Neck Exam: normal inspection Respiratory Exam: normal breath sounds, lungs clear Cardiovascular Exam: regular rate/rhythm, normal heart sounds Gastrointestinal/Abdomen Exam: soft, normal bowel sounds Extremity Exam: normal inspection Back Exam: normal inspection OBJECTIVE DATA Vital Signs: Vital Signs - 24 hr Temp Pulse Resp BP Pulse Ox 09/05/23 04:30 97.8 F 101 H 21 107/59 97 09/05/23 01:55 105 H 09/05/23 00:00 103 H 20 96 09/04/23 20:00 97.3 F 106 H 24 134/84 96 09/04/23 19:48 115 H 09/04/23 19:21 94 L 09/04/23 16:00 97.7 F 100 H 18 129/63 95 09/04/23 14:00 82 09/04/23 11:46 97.5 F 82 18 116/66 96 09/04/23 06:56 97.5 F 83 18 113/62 94 L 09/04/23 06:54 95 Pain Assessment - Last Documented Pain Intensity 9 Pain Scale Used 0-10 Pain Scale Intake and Output: Intake & Output 09/02/23 09/03/23 09/04/23 09/05/23 11:59 11:59 11:59 11:59 Intake Total 960 1640 Output Total 1000 1300 Balance -40 340 Weight 113.2 kg Lab Results: Lab Results-Last 24 Hours 09/04/23 09/04/23 09/04/23 Range/Units 04:36 11:18 13:13 Sodium 134 L (137-145) mmol/L Potassium 5.7 H D 4.5 D (3.5-5.1) mmol/L Chloride 96 L (98-107) mmol/L Carbon Dioxide 25 (22-30) mmol/L Anion Gap 18.9 H (5-15) MEQ/L BUN 11 (9-20) mg/dL Creatinine 0.71 (0.66-1.25) mg/dL Estimated GFR 111.1 ML/MIN Glucose 267 H (74-106) mg/dL POC Glucometer 219 H (74 to 106) mg/dL Calcium 9.3 (8.4-10.2) mg/dL Total Bilirubin 0.40 (0.2-1.3) mg/dL AST 34 (17-59) U/L ALT 35 (0-50) U/L Alkaline Phosphatase 114 (38-126) U/L Serum Total Protein 6.6 (6.3-8.2) g/dL Albumin 4.1 (3.5-5.0) g/dL 09/04/23 09/04/23 Range/Units 16:11 20:44 Sodium (137-145) mmol/L Potassium (3.5-5.1) mmol/L Chloride (98-107) mmol/L Carbon Dioxide (22-30) mmol/L Anion Gap (5-15) MEQ/L BUN (9-20) mg/dL Creatinine (0.66-1.25) mg/dL Estimated GFR ML/MIN Glucose (74-106) mg/dL POC Glucometer 280 H 261 H (74 to 106) mg/dL Calcium (8.4-10.2) mg/dL Total Bilirubin (0.2-1.3) mg/dL AST (17-59) U/L ALT (0-50) U/L Alkaline Phosphatase (38-126) U/L Serum Total Protein (6.3-8.2) g/dL Albumin (3.5-5.0) g/dL Multi-Disciplinary Progress Notes: Multi-Disciplinary Progress Notes 09/04/23 10:42 Case Management Note by Jacinta Seth RECEIVED PROCEDURE NOTE FROM [employer] FROM 08/28/23. ALSO RECEIVED F/U NOTE FROM PATRICK STEPHEN MANAGER FLIGHT OFFICE ON 09/02/23. GIVEN TO HIMANSHU ALBERTO TO BE PLACED IN CHART. UPDATED MARISABEL ANDRE NP. 09/02/23 PUMP WAS INCREASED PER PT REQUEST AT F/U APPT. SETTINGS WHEN DEVICE IMPLANTED : METRONIC 8637-40 PUMP PROGRAMMED TO NFUSE 0.1676MG MORPHINE PER 24 HOURS USING FLEX DOSING WITH SCHEDULED BOLUSES ON 0.06MG AT 0700 AND 1900 HOURS 09/02/23 : THEY ANALYZED PUMP SETTINGS AND FOUND TO BE DELIVERING MORPHINE AT 0.2503 MG/DAY VIA FLEX DOSING. 09/02/23 : THE DOSE WAS INCREASED TO 0.313MG/DAY. Initialized on 09/04/23 10:42 - END OF NOTE 09/04/23 10:04 Case Management Note by Jacinta Seth CALL TO DR CAZARES OFFICE, REQUESTED CLINICAL FROM HIS VISIT. MEDICAL RECORDS CLARIFIED THAT DR CAZARES ONLY DOES PROCEDURES, BUT WILL FAX THE INFORMATION THAT THEY HAVE. PATRICK STEPHEN NP IS PT'S PAIN PROVIDER. TRANSFERRED TO PATRICK STEPHEN VOICEMAIL AND LEFT MESSAGE FOR PATRICK TO CALL US BACK. Initialized on 09/04/23 10:04 - END OF NOTE Assessment/Plan (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 Cazares, whether HAND BUTTON SPLITTER is an option. Overnight, will offer prn IV Dilaudid (1 mg q3h prn) with reassessment. The patient recently had a morphine pump implanted. Complex pain management history with a recent change from Dr. Greer to Dr. Cazares. 09/04: -records reviewed at stated in subjective, plan to continue current management, will add solumedrol as well as acyclovir 09/05: -Pt declines [facility] transfer for LP, will continue current management Code(s): G03.2 - BENIGN RECURRENT MENINGITIS [MOLLARET] (2) Chronic pain syndrome Current Visit: No Status: Chronic Assessment & Plan: -see above Code(s): G89.4 - CHRONIC PAIN SYNDROME (3) Diabetes mellitus Current Visit: No Status: Chronic Qualifiers: Assessment & Plan: -ADA diet -SSI -A1c Code(s): E11.9 - TYPE 2 DIABETES MELLITUS WITHOUT COMPLICATIONS (4) Hypertension Current Visit: No Status: Chronic Onset Date: ~11/01/18 Assessment & Plan: -Monitor BP, continue home meds Code(s): G03.2 - BENIGN RECURRENT MENINGITIS [MOLLARET] (2) Chronic pain syndrome Current Visit: No Status: Chronic Code(s): G89.4 - CHRONIC PAIN SYNDROME (3) Diabetes mellitus Current Visit: No Status: Chronic Qualifiers: Code(s): E11.9 - TYPE 2 DIABETES MELLITUS WITHOUT COMPLICATIONS (4) Hypertension Current Visit: No Status: Chronic Onset Date: ~11/01/18 Code(s): I10 - ESSENTIAL (PRIMARY) HYPERTENSION
[2023-09-05 05:41] LABS: Absolute Neutrophil Ct (ANC) 9.18 x10^3/uL (1.4-6.9); BASOPHIL % 0.4 % (0.0-0.4); Basophil (Absolute #) 0.06 x10^3/uL (0-0.4); Eosinophil % 2.7 % (0.00-5.0); Eosinophil (Absolute #) 0.38 x10^3/uL (0-0.5); Hematocrit 39.1 % (42-50); Hemoglobin 12.6 g/dL (12.5-18.0); IMMATURE GRAN # 0.11 x10^3u/L (0.00-0.03); IMMATURE GRAN % 0.8 % (0.00-0.4); Lymphocyte (Absolute #) 3.14 x10^3/uL (1.0-4.6); Mean Cell Volume 91.8 fL (78-100); Mean Corpuscular Hemoglobin 29.6 pg (26-32); Mean Corpuscular Hgb Concent. 32.2 g/dL (32-36); Mean Platelet Volume 9.6 fL (7.5-11.0); Monocyte (Absolute #) 1.39 x10^3/uL (0.0-1.3); Monocytes % 9.7 % (0.0-12.0); Neutrophil % 64.4 % (36.0-66.0); Platelet Count 383 x10^3/uL (150-450); Red Blood Count 4.26 x10^6/uL (4.1-5.6); Red Cell Distribution Width 14.6 % (11.5-14.0); White Blood Count 14.3 x10^3/uL (4.0-10.5)
[2023-09-05 06:08] LABS: ALBUMIN 3.7 g/dL (3.5-5.0); ANION GAP 14.3 MEQ/L (5-15); BILIRUBIN,TOTAL 0.2 mg/dL (0.2-1.3); Calcium 9.1 mg/dL (8.4-10.2); Creatinine 1 0.75 mg/dL (0.66-1.25); EST GLOMERULAR FILTRATION RATE 109.3 ML/MIN; Potassium 5.1 mmol/L (3.5-5.1); Total Protein 6.1 g/dL (6.3-8.2)
[2023-09-05] MEDS: Ms Contin 15 MG PO SCH ×3 (08:31→22:03)
[2023-09-05] MEDS: Cymbalta 30 MG Capsule PO SCH ×2 (08:33→22:03)
[2023-09-05] MEDS: THERAGRAN MULTIVITAMIN PO SCH (08:33)
[2023-09-05] MEDS: ECOTRIN 81 MG PO SCH (08:33)
[2023-09-05] MEDS: Glucophage 500 MG PO SCH ×2 (08:33→17:35)
[2023-09-05] MEDS: Protonix 40MG Tablet PO SCH (08:33)
[2023-09-05] MEDS: Acidophilus TABLET PO SCH (08:33)
[2023-09-05] MEDS: MINERAL OIL PO SCH ×3 (08:34→22:04)
[2023-09-05] MEDS: Docusate Sodium 100 MG PO SCH ×2 (08:34→22:04)
[2023-09-05] MEDS: solu-MEDROL 40 MG, Sterile H2O 10 ml 1 ML IV SCH ×2 (10:03)
[2023-09-05] MEDS: Zocor 10MG PO SCH (22:03)
[2023-09-05] MEDS: Vasotec 10 MG PO SCH (22:03)
[2023-09-05] MEDS: BENADRYL 50 MG/ML IV PRN (22:34)
[2023-09-06] MEDS: ZOVIRAX IV SCH ×3 (01:13→17:38)
[2023-09-06] MEDS: SODIUM CHLORIDE MINI IV SCH ×3 (01:13→17:38)
[2023-09-06] MEDS: Hydromorphone 1 mg/ml Injection IV PRN ×8 (01:14→23:46)
[2023-09-06 06:01] LABS: Absolute Neutrophil Ct (ANC) 6.66 x10^3/uL (1.4-6.9); BASOPHIL % 0.8 % (0.0-0.4); Eosinophil % 4.3 % (0.00-5.0); Eosinophil (Absolute #) 0.52 x10^3/uL (0-0.5); Hematocrit 42.1 % (42-50); IMMATURE GRAN # 0.15 x10^3u/L (0.00-0.03); IMMATURE GRAN % 1.2 % (0.00-0.4); Lymphocyte (Absolute #) 3.52 x10^3/uL (1.0-4.6); Lymphocytes % 29.2 % (24.0-44.0); Mean Cell Volume 92.3 fL (78-100); Mean Corpuscular Hemoglobin 28.5 pg (26-32); Mean Corpuscular Hgb Concent. 30.9 g/dL (32-36); Mean Platelet Volume 9.4 fL (7.5-11.0); Monocytes % 9.1 % (0.0-12.0); Neutrophil % 55.4 % (36.0-66.0); Platelet Count 409 x10^3/uL (150-450); Red Blood Count 4.56 x10^6/uL (4.1-5.6); Red Cell Distribution Width 14.8 % (11.5-14.0); White Blood Count 12.1 x10^3/uL (4.0-10.5)
[2023-09-06 06:35] LABS: ALBUMIN 3.9 g/dL (3.5-5.0); ANION GAP 14.1 MEQ/L (5-15); BILIRUBIN,TOTAL 0.3 mg/dL (0.2-1.3); Calcium 9.1 mg/dL (8.4-10.2); Creatinine 1 0.76 mg/dL (0.66-1.25); EST GLOMERULAR FILTRATION RATE 108.8 ML/MIN; Potassium 4.4 mmol/L (3.5-5.1); Total Protein 6.7 g/dL (6.3-8.2)
[2023-09-06] MEDS: Glucophage 500 MG PO SCH ×2 (08:33→17:38)
[2023-09-06] MEDS: Cymbalta 30 MG Capsule PO SCH ×2 (09:13→22:01)
[2023-09-06] MEDS: MINERAL OIL PO SCH ×3 (09:14→22:02)
[2023-09-06] MEDS: Ms Contin 15 MG PO SCH ×3 (09:14→22:01)
[2023-09-06] MEDS: Protonix 40MG Tablet PO SCH (09:14)
[2023-09-06] MEDS: Acidophilus TABLET PO SCH (09:14)
[2023-09-06] MEDS: THERAGRAN MULTIVITAMIN PO SCH (09:14)
[2023-09-06] MEDS: ECOTRIN 81 MG PO SCH (09:14)
[2023-09-06] MEDS: solu-MEDROL 40 MG, Sterile H2O 10 ml 1 ML IV SCH ×2 (09:15)
[2023-09-06] MEDS: Docusate Sodium 100 MG PO SCH ×2 (09:17→22:11)
--- NOTE | 2023-09-06 10:08 | PCM.NOTE ---
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 He has not reported visual disturbance, convulsions, numbness, tingling, or focal weakness, and he requested admission at [facility] due to prior history of FERMENTER WINE pump administration. Neurology consult obtained with recommendation for transfer to for LP/higher level of care. Discussed neurology recommendations with patient and the purpose of LP for further treatment plan. Patient declines transfer at this time. He wishes to remain at [facility] with current treatment regimen. 09/04/23: Patient up in chair. Endorses continued 8/10 pain to neck/abdomen (at surgical site). States he feels that his recent surgery 08/28/23 for his pain pump has caused a flare which has resulted in severe pain, unmanageable at home. Recent office notes from Anthony Stephen reviewed s/p catheter/pump replacement. Morphine is now at 0.313mg/day. It is noted that dermabond prineo dressings were causing skin breakdown under dressing at that visit. He still has notable redness to those areas. Patient is also on Morphine ER 30mg q8H prescribed by pain management. Plan is to start solumedrol/acyclovir/ breakthrough pain relief with diluadid 1mg/q3H. Neurology also consulted. Patient states that he has had recent office visit with an MRI planned soon. 09/05/23: Met and examined patient bedside. Endorses improvement of pain overall but still rating pain 7/10. Discussed Neurology recommendation for LP and rationale behind it; patient does decline transfer for this procedures. He states that he is currently following with neurology and has planned testing with MRI and follow up visit in the next month, he will discuss at that time if there is a need for any additional testing needed/LP. Plan is to continue with current treatment regimen, possible discharge tomorrow pending re-eval in the morning. 09/06/23: Patient has complaints of increased pain overnight, states he is now at 8/10. States he feels that he is not ready for discharge, feels that he would come right back due to unmanageable pain. Discussed follow up with pain management to help get pain at manageable level, patient states that he does have follow up but would not be able to do anything until Thursday. Plan to continue current management and pain regimen, possible d/c in the morning if pain is more manageable. Denies fever,cough, sob, cp, abdominal pain, PARK, dizziness, N/V/D. - Review of Systems Constitutional: No Symptoms Eyes: No Symptoms Ears, Nose, & Throat: No Symptoms Respiratory: No Symptoms Cardiac: No Symptoms Abdominal/Gastrointestinal: No Symptoms Genitourinary Symptoms: No Symptoms Musculoskeletal: Neck Pain Skin: No Symptoms Neurological: No Symptoms Psychological: No Symptoms Endocrine: No Symptoms Hematologic/Lymphatic: No Symptoms Immunological/Allergic: No Symptoms Objective Exam General Appearance: no apparent distress Neurologic Exam: alert, oriented x 3, cooperative Skin Exam: normal color Wound Assessment: (transverse incision to the left lower abdomen/ incision to the mid lower back with steri strips some erythema from previous reaction to dressing) Eye Exam: PERRL Ears, Nose, Throat Exam: moist mucous membranes Neck Exam: normal inspection, other Respiratory Exam: normal breath sounds, lungs clear Cardiovascular Exam: regular rate/rhythm, normal heart sounds Gastrointestinal/Abdomen Exam: soft, normal bowel sounds, No tenderness, No mass Extremity Exam: normal inspection, other Back Exam: other ((transverse incision to the left lower abdomen/ incision to the mid lower back )) OBJECTIVE DATA Vital Signs: Vital Signs - 24 hr Temp Pulse Resp BP Pulse Ox 09/06/23 07:44 94 L 09/06/23 07:00 97.1 F 77 18 132/80 95 09/06/23 03:00 78 19 98 09/06/23 01:00 EST 87 09/05/23 23:48 97.9 F 89 20 104/51 98 09/05/23 19:42 97.8 F 105 H 20 112/54 97 09/05/23 19:22 107 H 09/05/23 16:00 97.4 F 94 H 22 126/81 97 09/05/23 11:51 92 H 23 95 Pain Assessment - Last Documented Pain Intensity 7 Pain Scale Used 0-10 Pain Scale Intake and Output: Intake & Output 09/03/23 09/04/23 09/05/23 09/06/23 11:59 11:59 11:59 10:59 Intake Total 960 2600 900 Output Total 1000 1300 500 Balance -40 1300 400 Weight 113.2 kg Lab Results: Lab Results-Last 24 Hours 09/06/23 09/06/23 Range/Units 05:30 05:30 WBC 12.1 H (4.0-10.5) x10^3/uL RBC 4.56 (4.1-5.6) x10^6/uL Hgb 13.0 (12.5-18.0) g/dL Hct 42.1 (42-50) % MCV 92.3 (78-100) fL MCH 28.5 (26-32) pg MCHC 30.9 L (32-36) g/dL RDW 14.8 H (11.5-14.0) % Plt Count 409 (150-450) x10^3/uL MPV 9.4 (7.5-11.0) fL Gran % 55.4 (36.0-66.0) % Immature Gran % (Auto) 1.2 H (0.00-0.4) % Nucleat RBC Rel Count 0.0 (0.00-0.1) % Eos # (Auto) 0.52 H (0-0.5) x10^3/uL Immature Gran # (Auto) 0.15 H (0.00-0.03) x10^3u/L Absolute Lymphs (auto) 3.52 (1.0-4.6) x10^3/uL Absolute Monos (auto) 1.10 (0.0-1.3) x10^3/uL Absolute Nucleated RBC 0.00 (0.00-0.01) x10^3u/L Lymphocytes % 29.2 (24.0-44.0) % Monocytes % 9.1 (0.0-12.0) % Eosinophils % 4.3 (0.00-5.0) % Basophils % 0.8 (0.0-0.4) % Absolute Granulocytes 6.66 (1.4-6.9) x10^3/uL Basophils # 0.10 (0-0.4) x10^3/uL Sodium 139 (137-145) mmol/L Potassium 4.4 (3.5-5.1) mmol/L Chloride 97 L (98-107) mmol/L Carbon Dioxide 32 H (22-30) mmol/L Anion Gap 14.1 (5-15) MEQ/L BUN 13 (9-20) mg/dL Creatinine 0.76 (0.66-1.25) mg/dL Estimated GFR 108.8 ML/MIN Glucose 154 H (74-106) mg/dL Calcium 9.1 (8.4-10.2) mg/dL Total Bilirubin 0.30 (0.2-1.3) mg/dL AST 36 (17-59) U/L ALT 51 H (0-50) U/L Alkaline Phosphatase 104 (38-126) U/L Serum Total Protein 6.7 (6.3-8.2) g/dL Albumin 3.9 (3.5-5.0) g/dL Assessment/Plan (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 Cazares, whether FERMENTER WINE is an option. Overnight, will offer prn IV Dilaudid (1 mg q3h prn) with reassessment. The patient recently had a morphine pump implanted. Complex pain management history with a recent change from Dr. Greer to Dr. Cazares. 09/04: -records reviewed at [facility] in subjective, plan to continue current management, will add solumedrol as well as acyclovir 09/05: -Pt declines [facility] transfer for [facility], will continue current management Code(s): G03.2 - BENIGN RECURRENT MENINGITIS [MOLLARET] 09/06: -Continue solumedrol and acyclovir -Pain management (2) Chronic pain syndrome Current Visit: No Status: Chronic Assessment & Plan: -see above Code(s): G89.4 - CHRONIC PAIN SYNDROME (3) Diabetes mellitus Current Visit: No Status: Chronic Qualifiers: Assessment & Plan: -ADA diet -SSI -A1c Code(s): E11.9 - TYPE 2 DIABETES MELLITUS WITHOUT COMPLICATIONS (4) Hypertension Current Visit: No Status: Chronic Onset Date: ~11/01/18 Assessment & Plan: -Monitor BP, continue home meds Code(s): G03.2 - BENIGN RECURRENT MENINGITIS [MOLLARET] Code(s): G03.2 - BENIGN RECURRENT MENINGITIS [MOLLARET] (2) Chronic pain syndrome Current Visit: No Status: Chronic Code(s): G89.4 - CHRONIC PAIN SYNDROME (3) Diabetes mellitus Current Visit: No Status: Chronic Qualifiers: Code(s): E11.9 - TYPE 2 DIABETES MELLITUS WITHOUT COMPLICATIONS (4) Hypertension Current Visit: No Status: Chronic Onset Date: ~11/01/18 Code(s): I10 - ESSENTIAL (PRIMARY) HYPERTENSION
[2023-09-06] MEDS: Zocor 10MG PO SCH (22:00)
[2023-09-06] MEDS: Vasotec 10 MG PO SCH (22:01)
[2023-09-06] MEDS: BENADRYL 50 MG/ML IV PRN (22:01)
[2023-09-07] MEDS: Hydromorphone 1 mg/ml Injection IV PRN ×5 (02:43→15:04)
[2023-09-07] MEDS: SODIUM CHLORIDE MINI IV SCH ×2 (02:43→09:13)
[2023-09-07] MEDS: ZOVIRAX IV SCH ×2 (02:43→09:13)
[2023-09-07 04:48] LABS: Absolute Neutrophil Ct (ANC) 7.22 x10^3/uL (1.4-6.9); BASOPHIL % 0.8 % (0.0-0.4); Eosinophil % 2.6 % (0.00-5.0); Eosinophil (Absolute #) 0.33 x10^3/uL (0-0.5); Hematocrit 41.3 % (42-50); Hemoglobin 13.1 g/dL (12.5-18.0); IMMATURE GRAN # 0.14 x10^3u/L (0.00-0.03); IMMATURE GRAN % 1.1 % (0.00-0.4); Lymphocyte (Absolute #) 3.73 x10^3/uL (1.0-4.6); Lymphocytes % 29.4 % (24.0-44.0); Mean Cell Volume 90.8 fL (78-100); Mean Corpuscular Hemoglobin 28.8 pg (26-32); Mean Corpuscular Hgb Concent. 31.7 g/dL (32-36); Mean Platelet Volume 9.3 fL (7.5-11.0); Monocyte (Absolute #) 1.16 x10^3/uL (0.0-1.3); Monocytes % 9.1 % (0.0-12.0); Platelet Count 411 x10^3/uL (150-450); Red Blood Count 4.55 x10^6/uL (4.1-5.6); Red Cell Distribution Width 14.9 % (11.5-14.0); White Blood Count 12.7 x10^3/uL (4.0-10.5)
[2023-09-07 05:07] LABS: ALBUMIN 3.9 g/dL (3.5-5.0); ANION GAP 10.5 MEQ/L (5-15); BILIRUBIN,TOTAL 0.3 mg/dL (0.2-1.3); Calcium 9.1 mg/dL (8.4-10.2); Creatinine 1 0.77 mg/dL (0.66-1.25); EST GLOMERULAR FILTRATION RATE 108.4 ML/MIN; Potassium 4.3 mmol/L (3.5-5.1); Total Protein 6.6 g/dL (6.3-8.2)
[2023-09-07 07:15] VITALS: RESP 17
[2023-09-07] MEDS: Glucophage 500 MG PO SCH (08:45)
[2023-09-07] MEDS: solu-MEDROL 40 MG, Sterile H2O 10 ml 1 ML IV SCH ×2 (09:08)
[2023-09-07] MEDS: Cymbalta 30 MG Capsule PO SCH (09:11)
[2023-09-07] MEDS: Acidophilus TABLET PO SCH (09:11)
[2023-09-07] MEDS: Protonix 40MG Tablet PO SCH (09:11)
[2023-09-07] MEDS: ECOTRIN 81 MG PO SCH (09:11)
[2023-09-07] MEDS: Docusate Sodium 100 MG PO SCH (09:12)
[2023-09-07] MEDS: THERAGRAN MULTIVITAMIN PO SCH (09:12)
[2023-09-07] MEDS: Ms Contin 15 MG PO SCH ×2 (09:12→15:00)
[2023-09-07] MEDS: MINERAL OIL PO SCH ×2 (09:13→15:03)
--- NOTE | 2023-09-07 09:34 | PCM.DS ---
Discharge Summary Date of Admission: 09/03/23 21:54 Date of Discharge: 09/07/23 Admitting Physician: ADAM TERRY MD Consults: Consults on Case 09/04/23 08:34 Consult Neurology ROUTINE Primary Care Provider: ANN ALEXIS <RAAD WEST - Last Filed: 09/07/23 14:32> Date of Admission: 09/03/23 21:54 Date of Discharge: 09/07/23 Admitting Physician: ADAM TERRY MD Consults: Consults on Case 09/04/23 08:34 Consult Neurology ROUTINE Primary Care Provider: ANN ALEXIS <DEVORAH LOW - Last Filed: 09/07/23 19:36> Allergies <RAAD WEST - Last Filed: 09/07/23 14:32> <DEVORAH LOW - Last Filed: 09/07/23 19:36> Allergies pregabalin [From Lyrica] Adverse Reaction (Severe, Verified 09/03/23 18:58) Hives SOB hives azithromycin [From Zmax] Adverse Reaction (Mild, Verified 09/03/23 18:58) vomiting Hospital Summary - Hospital Course Hospital Course: is a 53 year old male 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 He did not report visual disturbance, convulsions, numbness, tingling, or focal weakness. He requested admission at [place] due to prior history of PAINT FORMULATOR pump administration. Neurology consult obtained with recommendation for transfer to for LP/higher level of care. Discussed neurology recommendations with patient and the purpose of LP for further treatment plan. Patient declines transfer and wanted to remain at [facility] f or IV pain medications. No imagining done this visit as pt refused Pt's pain has improved since admission. His pain management office with Patrick Stephen NP/ Dr. Cazares called by case management this morning for a sooner appointment. They were able to get him in today by noon however pt states he does not have a ride and cannot go today. Case management was unable to help pt with a ride to appointment. He reports he has an appointment tomorrow and will f/u then. Pt's pain is not controlled as seen by ER visit hx often and continues to want readmission with IV pain meds. He needs to f/u with neurology at [facility] for further eval as he see's a specialist there for hx of Mollerts. He also needs to f/u with pain management as his pain is chronically uncontrolled. As discussed on admission he needs a higher level of care for further evaluation of his sxs that appear to be ongoing. Pt states he cannot leave until his afternoon as he does not have a ride. Dr. Low recommended pt speak with Neurology before d/c for further recommendations and pt does not want to. Will d/c with valcyclovir. Steriods not needed per treatment recom mendations as pt is doing better. Pt reports little pain in neck since admission. - Vitals & Intake/Output Vital Signs: Vital Signs Temperature 97.1 F 09/07/23 07:00 Pulse Rate 88 09/07/23 07:44 Respiratory Rate 17 09/07/23 07:00 Blood Pressure 130/77 09/07/23 07:00 O2 Sat by Pulse Oximetry 100 09/07/23 07:00 Intake & Output: Intake & Output 09/04/23 09/05/23 09/06/23 09/07/23 12:59 12:59 11:59 11:59 Intake Total 1020 Output Total Balance 1020 Weight - Lab Result Diagrams: 09/07/23 04:30 09/07/23 04:30 Lab Results-Last 24 Hrs: Lab Results-Last 24 Hours 09/07/23 09/07/23 09/07/23 Range/Units 04:30 04:30 07:03 WBC 12.7 H (4.0-10.5) x10^3/uL RBC 4.55 (4.1-5.6) x10^6/uL Hgb 13.1 (12.5-18.0) g/dL Hct 41.3 L (42-50) % MCV 90.8 (78-100) fL MCH 28.8 (26-32) pg MCHC 31.7 L (32-36) g/dL RDW 14.9 H (11.5-14.0) % Plt Count 411 (150-450) x10^3/uL MPV 9.3 (7.5-11.0) fL Gran % 57.0 (36.0-66.0) % Immature Gran % (Auto) 1.1 H (0.00-0.4) % Nucleat RBC Rel Count 0.0 (0.00-0.1) % Eos # (Auto) 0.33 (0-0.5) x10^3/uL Immature Gran # (Auto) 0.14 H (0.00-0.03) x10^3u/L Absolute Lymphs (auto) 3.73 (1.0-4.6) x10^3/uL Absolute Monos (auto) 1.16 (0.0-1.3) x10^3/uL Absolute Nucleated RBC 0.00 (0.00-0.01) x10^3u/L Lymphocytes % 29.4 (24.0-44.0) % Monocytes % 9.1 (0.0-12.0) % Eosinophils % 2.6 (0.00-5.0) % Basophils % 0.8 (0.0-0.4) % Absolute Granulocytes 7.22 H (1.4-6.9) x10^3/uL Basophils # 0.10 (0-0.4) x10^3/uL Sodium 138 (137-145) mmol/L Potassium 4.3 (3.5-5.1) mmol/L Chloride 99 (98-107) mmol/L Carbon Dioxide 33 H (22-30) mmol/L Anion Gap 10.5 (5-15) MEQ/L BUN 15 (9-20) mg/dL Creatinine 0.77 (0.66-1.25) mg/dL Estimated GFR 108.4 ML/MIN Glucose 133 H (74-106) mg/dL POC Glucometer 138 H (74 to 106) mg/dL Calcium 9.1 (8.4-10.2) mg/dL Total Bilirubin 0.30 (0.2-1.3) mg/dL AST 26 (17-59) U/L ALT 43 (0-50) U/L Alkaline Phosphatase 106 (38-126) U/L Serum Total Protein 6.6 (6.3-8.2) g/dL Albumin 3.9 (3.5-5.0) g/dL Micro Results-Entire Visit: Microbiology 09/03/23 20:10 Blood Culture - Preliminary Blood 09/03/23 20:02 Blood Culture - Preliminary Blood Accuchecks Date 09/07/23 Time 07:14 <RAAD WEST - Last Filed: 09/07/23 14:32> - Vitals & Intake/Output Vital Signs: Vital Signs Temperature 97.3 F 09/07/23 11:00 Pulse Rate 93 H 09/07/23 13:34 Respiratory Rate 17 09/07/23 11:00 Blood Pressure 129/65 09/07/23 11:00 O2 Sat by Pulse Oximetry 96 09/07/23 11:00 Intake & Output: Intake & Output 09/05/23 09/06/23 09/07/23 09/08/23 12:59 11:59 11:59 11:59 Intake Total 1020 480 Output Total Balance 1020 480 - Lab Result Diagrams: 09/07/23 04:30 09/07/23 04:30 Lab Results-Last 24 Hrs: Lab Results-Last 24 Hours 09/07/23 09/07/23 09/07/23 Range/Units 04:30 04:30 07:03 WBC 12.7 H (4.0-10.5) x10^3/uL RBC 4.55 (4.1-5.6) x10^6/uL Hgb 13.1 (12.5-18.0) g/dL Hct 41.3 L (42-50) % MCV 90.8 (78-100) fL MCH 28.8 (26-32) pg MCHC 31.7 L (32-36) g/dL RDW 14.9 H (11.5-14.0) % Plt Count 411 (150-450) x10^3/uL MPV 9.3 (7.5-11.0) fL Gran % 57.0 (36.0-66.0) % Immature Gran % (Auto) 1.1 H (0.00-0.4) % Nucleat RBC Rel Count 0.0 (0.00-0.1) % Eos # (Auto) 0.33 (0-0.5) x10^3/uL Immature Gran # (Auto) 0.14 H (0.00-0.03) x10^3u/L Absolute Lymphs (auto) 3.73 (1.0-4.6) x10^3/uL Absolute Monos (auto) 1.16 (0.0-1.3) x10^3/uL Absolute Nucleated RBC 0.00 (0.00-0.01) x10^3u/L Lymphocytes % 29.4 (24.0-44.0) % Monocytes % 9.1 (0.0-12.0) % Eosinophils % 2.6 (0.00-5.0) % Basophils % 0.8 (0.0-0.4) % Absolute Granulocytes 7.22 H (1.4-6.9) x10^3/uL Basophils # 0.10 (0-0.4) x10^3/uL Sodium 138 (137-145) mmol/L Potassium 4.3 (3.5-5.1) mmol/L Chloride 99 (98-107) mmol/L Carbon Dioxide 33 H (22-30) mmol/L Anion Gap 10.5 (5-15) MEQ/L BUN 15 (9-20) mg/dL Creatinine 0.77 (0.66-1.25) mg/dL Estimated GFR 108.4 ML/MIN Glucose 133 H (74-106) mg/dL POC Glucometer 138 H (74 to 106) mg/dL Calcium 9.1 (8.4-10.2) mg/dL Total Bilirubin 0.30 (0.2-1.3) mg/dL AST 26 (17-59) U/L ALT 43 (0-50) U/L Alkaline Phosphatase 106 (38-126) U/L Serum Total Protein 6.6 (6.3-8.2) g/dL Albumin 3.9 (3.5-5.0) g/dL 09/07/23 Range/Units 11:11 WBC (4.0-10.5) x10^3/uL RBC (4.1-5.6) x10^6/uL Hgb (12.5-18.0) g/dL Hct (42-50) % MCV (78-100) fL MCH (26-32) pg MCHC (32-36) g/dL RDW (11.5-14.0) % Plt Count (150-450) x10^3/uL MPV (7.5-11.0) fL Gran % (36.0-66.0) % Immature Gran % (Auto) (0.00-0.4) % Nucleat RBC Rel Count (0.00-0.1) % Eos # (Auto) (0-0.5) x10^3/uL Immature Gran # (Auto) (0.00-0.03) x10^3u/L Absolute Lymphs (auto) (1.0-4.6) x10^3/uL Absolute Monos (auto) (0.0-1.3) x10^3/uL Absolute Nucleated RBC (0.00-0.01) x10^3u/L Lymphocytes % (24.0-44.0) % Monocytes % (0.0-12.0) % Eosinophils % (0.00-5.0) % Basophils % (0.0-0.4) % Absolute Granulocytes (1.4-6.9) x10^3/uL Basophils # (0-0.4) x10^3/uL Sodium (137-145) mmol/L Potassium (3.5-5.1) mmol/L Chloride (98-107) mmol/L Carbon Dioxide (22-30) mmol/L Anion Gap (5-15) MEQ/L BUN (9-20) mg/dL Creatinine (0.66-1.25) mg/dL Estimated GFR ML/MIN Glucose (74-106) mg/dL POC Glucometer 203 H (74 to 106) mg/dL Calcium (8.4-10.2) mg/dL Total Bilirubin (0.2-1.3) mg/dL AST (17-59) U/L ALT (0-50) U/L Alkaline Phosphatase (38-126) U/L Serum Total Protein (6.3-8.2) g/dL Albumin (3.5-5.0) g/dL Micro Results-Entire Visit: Microbiology 09/03/23 20:10 Blood Culture - Preliminary Blood 09/03/23 20:02 Blood Culture - Preliminary Blood Accuchecks Date 09/07/23 Date 09/07/23 Time 11:22 Time 07:14 <DEVORAH LOW - Last Filed: 09/07/23 19:36> Discharge Exam General Appearance: no apparent distress, alert Neurologic Exam: alert, oriented x 3, cooperative, normal mood/affect, nml cerebellar function, sensation nml, No motor deficits Eye Exam: PERRL, EOMI, eyes nml inspection Ears, Nose, Throat Exam: normal ENT inspection, pharynx normal, moist mucous membranes Neck Exam: normal inspection, non-tender, supple, full range of motion Respiratory Exam: normal breath sounds, lungs clear, No respiratory distress Cardiovascular Exam: regular rate/rhythm, normal heart sounds Gastrointestinal/Abdomen Exam: soft, No tenderness, No mass Male Genitalia Exam: deferred Rectal Exam: deferred Back Exam: normal inspection, normal range of motion, No CVA tenderness, No vertebral tenderness Extremity Exam: normal inspection, normal range of motion Skin Exam: normal color, warm, dry <RAAD WEST - Last Filed: 09/07/23 14:32> Final Diagnosis/Problem List - Final Discharge Diagnosis/Problem (1) Mollaret's syndrome (benign recurrent meningitis) Status: Chronic Assessment & Plan: Will need to clarify with the patient's new pain physician, Dr. Cazares, whether PAINT FORMULATOR is an option. Overnight, will offer prn IV Dilaudid (1 mg q3h prn) with reassessment. The patient recently had a morphine pump implanted. Complex pain management history with a recent change from Dr. Greer to Dr. Cazares. 09/04: -records reviewed at stated in subjective, plan to continue current management, will add solumedrol as well as acyclovir 09/05: -Pt declines [facility] transfer for LP, will continue current management Code(s): G03.2 - BENIGN RECURRENT MENINGITIS [MOLLARET] 09/06: -Continue solumedrol and acyclovir -Pain management 09/07 - New appointment made for today and pt states he cannot go as he does not have a ride. - He reports he has a pain management appointment made for tomorrow. - Cannot d/c until later today he reports as he does not have a ride. Code(s): G03.2 - BENIGN RECURRENT MENINGITIS [MOLLARET] (2) Chronic pain syndrome Status: Chronic Assessment & Plan: Current Visit: No Status: Chronic Assessment & Plan: -see above - [facility]u with [facility] and pain management for better pain control. Code(s): G89.4 - CHRONIC PAIN SYNDROME (3) Diabetes mellitus Status: Chronic Assessment & Plan: -ADA diet -SSI -A1c 7.61- 04/09/23- uncontrolled Code(s): E11.9 - TYPE 2 DIABETES MELLITUS WITHOUT COMPLICATIONS (4) Hypertension Status: Chronic Onset Date: ~11/01/18 Assessment & Plan: - controlled -Continue home BP meds Code(s): I10 - ESSENTIAL (PRIMARY) HYPERTENSION <RAAD WEST - Last Filed: 09/07/23 14:32> - Discharge Discharge Date: 09/07/23 <RAAD WEST - Last Filed: 09/07/23 14:32> <DEVORAH LOW - Last Filed: 09/07/23 19:36> - Discharge Disposition: Home, Self-Care Condition: Stable Prescriptions: New Acyclovir 800 mg [Acyclovir] 800 mg PO Q8H 7 Days #21 tablet Acyclovir 200 mg Cap [Acyclovir] 200 mg PO Q8H 7 Days #21 cap Continue Enalapril Maleate 10 mg [Vasotec 10 MG] 20 mg PO HS Multivitamin [Multi-Vitamin Daily] 1 each PO DAILY Aspirin 81 mg PO DAILY Testosterone Cypionate 1.25 ml IM UD Duloxetine HCl [Cymbalta] 60 mg PO BID Metformin HCl 500 mg [Glucophage 500 MG] 1,000 mg PO BIDWM Atorvastatin Calcium [Lipitor] 10 mg PO HS Mineral Oil 30 ml PO TID Esomeprazole Magnesium [Nexium 24Hr] 40 mg PO HS Lactobacillus Combo No.10 [Probiotic] 2 each PO DAILY Prednisone 5 mg [Deltasone 5 mg] 15 mg PO DAILY Non-Formulary Drug [Non-Formulary Bulk Item] 0 mg INTSPINE DAILY Morphine Sulfate Cr 30 mg [Ms Contin 30 mg] 30 mg PO Q8H Instructions: Acyclovir (Systemic) Follow up with: JOSR STEPHEN NP [NON-STAFF PHY W/O PRIVILEGES] - 09/08/23 (KEEP YOUR SCHEDULED APPOINTMENT TOMORROW, 09/08/23.) ANN ALEXIS MD [Primary Care Provider] - 09/14/23 10:45 am ASHLEY CAZARES [NON-STAFF PHY W/O PRIVILEGES] - ( SCHEDULED WITH PATRICK ) RANDY Encounter - RANDY Encounter Attestation RANDY Encounter Attestation: "IhavepersonallysjosiasexDEBRA Jean-Baptiste andhavediscussed pertinent aspects of their care with Raad Mendiola and agree with the history, physical exam (any modifications based on my personal exam will be noted below), assessment, and plan as outlined in original note. Please see immediately below for my summary of findings and additional assessment and plan along with any meaningful corrections/explanations to the Subjective/Objective portions of the RANDY note will be noted." My portion of the encounter took place via telemedicine. -Patient reports improvement in pain. He has follow up with neurology this month with MRI scheduled as outpatient. Patient feels better and would like to be discharged. He will be discharged on Valtrex to complete 10 day course per treatment recommendations. I do not think he needs steroids at this time given improvement in his symptoms. Follow up with neurology emphasized. <DEVORAH LOW - Last Filed: 09/07/23 19:36>
[2023-09-07 11:22] VITALS: BP 129/65; PULSE 93; TEMP 97.3; O2SAT 96
== END 2023-09-07 15:35 | disposition home or self-care (01) ==
LOC: ED 18:49 → MED SURG 21:54
PROVIDERS: ADMIT Internal Medicine; ATTEND Internal Medicine
DX: G03.2 Benign recurrent meningitis [Mollaret] (principal); G89.4 Chronic pain syndrome; E78.5 Hyperlipidemia, unspecified; I10 Essential (primary) hypertension; E11.9 Type 2 diabetes mellitus without complications; G47.30 Sleep apnea, unspecified; R51.9 Headache, unspecified; Z79.899 Other long term (current) drug therapy; Z20.828 Contact with and (suspected) exposure to other viral communicable diseases
CPT/HCPCS: 36415; 80053; 81001; 82947; 83605; 84132; 85025; 85027; 87040; 94762; 96365; 96374; 96375; 99285; Q3014; 93268; J0133; J1170; J1200; J1817; J2405; J2920; J2930; A9270-GY; G0378

== ENCOUNTER 2024-01-10 16:10 | Emergency (ER) | payer BC ==
[2024-01-10 18:06] VITALS: TEMP 97.9
[2024-01-10] MEDS ORDERED: Hydromorphone 1 mg/ml Injection ONE (18:43)
[2024-01-10] MEDS ORDERED: Sterile H2O 10 ml IJ ONE (18:43)
[2024-01-10] MEDS ORDERED: solu-MEDROL ONE (18:43)
[2024-01-10] MEDS: Hydromorphone 1 mg/ml Injection IM ONE (18:46)
[2024-01-10] MEDS: solu-MEDROL 125 MG, Sterile H2O 10 ml 2 ML IM ONE (18:49)
--- NOTE | 2024-01-10 19:09 | ERPHSYRPT ---
- History of Present Illness Source: patient Exam Limitations: no limitations Patient Subjective Stated Complaint: Pain "Flare up" Triage Nursing Assessment: Patient ambulated back to ED and transferred self to bed. Patient A+O X3. Patient's skin pink, warm and dry. Patient states he is having a "flare up". Patient states the pain started in back of neck, into head and down pop upper legs 08/11. 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 Patient report he has been taking his routine medication with no relief. Denies any fever or chills. No nausea or vomiting. Patient reports having symptoms similar in the past with flareup. Denies any chest pain palpitations or shortness of breath. No URI symptoms. (SERGEI AUGUSTINE) Allergies/Adverse Reactions: pregabalin [From Lyrica] Adverse Reaction (Severe, Verified 01/10/24 17:45) Hives SOB hives azithromycin [From Zmax] Adverse Reaction (Mild, Verified 01/10/24 17:45) vomiting Home Medications: Aspirin 81 mg PO DAILY 01/24/14 [History] Enalapril Maleate 10 mg [Vasotec 10 MG] 20 mg PO HS 01/24/14 [History] Multivitamin [Multi-Vitamin Daily] 1 each PO DAILY 01/24/14 [History] Testosterone Cypionate 1.25 ml IM UD 10/09/14 [History] Duloxetine HCl [Cymbalta] 60 mg PO BID 04/23/15 [History] Metformin HCl 500 mg [Glucophage 500 MG] 1,000 mg PO BIDWM 04/20/20 [History] Atorvastatin Calcium [Lipitor] 10 mg PO HS 01/06/22 [History] Mineral Oil 30 ml PO TID 10/30/22 [History] Esomeprazole Magnesium [Nexium 24Hr] 40 mg PO HS 12/25/22 [History] Lactobacillus Combo No.10 [Probiotic] 2 each PO DAILY 03/25/23 [History] Prednisone 5 mg [Deltasone 5 mg] 15 mg PO DAILY 05/20/23 [History] Non-Formulary Drug [Non-Formulary Bulk Item] 0 mg INTSPINE DAILY 06/19/23 [History] Morphine Sulfate Cr 30 mg [Ms Contin 30 mg] 30 mg PO Q8H 09/03/23 [History] Travel Risk - International Travel Have you traveled outside of the country in past 3 weeks: No - Coronavirus Screening Are you exhibiting any of the following symptoms?: No Close contact with a COVID-19 positive Pt in past 14-21 Days: No - Vaccine Status Have you recieved a Covid-19 vaccination: Yes [employer]: [employer] - Vaccination Dates Dates if Unknown: ? <SERGEI AUGUSTINE - Last Filed: 01/10/24 19:06> - Review of Systems Constitutional: No Symptoms Eyes: No Symptoms Ears, Nose, & Throat: No Symptoms Respiratory: No Symptoms Cardiac: No Symptoms Abdominal/Gastrointestinal: No Symptoms Genitourinary Symptoms: No Symptoms Musculoskeletal: Arthralgias, Neck Pain, Myalgias Skin: No Symptoms Neurological: Headache Psychological: No Symptoms Hematologic/Lymphatic: No Symptoms Immunological/Allergic: No Symptoms <SERGEI AUGUSTINE - Last Filed: 01/10/24 19:06> - Past Medical History Pertinent Past Medical History: Yes Neurological History: Paralysis, Seizures ENT History: No Pertinent History Cardiac History: High Cholesterol, Hypertension Respiratory History: Sleep Apnea Endocrine Medical History: Diabetes Type II Musculoskeletal History: No Pertinent History GI Medical History: No Pertinent History History: No Pertinent History Psycho-Social History: Depression Male Reproductive Disorders: No Pertinent History Other Medical History: Mollaret's, spleen removed - Past Surgical History Past Surgical History: Yes Neuro Surgical History: No Pertinent History Cardiac: No Pertinent History Respiratory: No Pertinent History Gastrointestinal: Appendectomy, Other Genitourinary: No Pertinent History Musculoskeletal: No Pertinent History Male Surgical History: Vasectomy Other Surgical History: CONSIDERED PRE-DIABETIC DUE STEROIDS. SPLENECTOMY 1988. replaced pain pump and catheter. 08/28/23 - Social History Smoking Status: Never smoker Exposure to second hand smoke: No Alcohol Use: None Drug Use: none Patient Lives Alone: No Significant Family History: no pertinent family hx <MILO AUGUSTINEMIR - Last Filed: 01/10/24 19:06> - Physical Exam General Appearance: no apparent distress, alert Eye Exam: PERRL/EOMI Ears, Nose, Throat Exam: normal ENT inspection, TMs normal, pharynx normal, moist mucous membranes Neck Exam: normal inspection, supple, full range of motion, other (Generalized muscle tenderness) Respiratory Exam: normal breath sounds, lungs clear Cardiovascular Exam: regular rate/rhythm, normal heart sounds Gastrointestinal/Abdomen Exam: soft, normal bowel sounds, No tenderness Back Exam: normal inspection, normal range of motion Extremity Exam: normal inspection, normal range of motion Neurologic Exam: alert, oriented x 3, cooperative, 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 nml as tested, nml cerebellar function, nml station & gait, sensation nml, No normal mood/affect, No motor deficits Skin Exam: normal color SpO2 Interpretation: normal SpO2: 96 O2 Delivery: Room Air <FAWN,SERGEI - Last Filed: 01/10/24 19:06> - Nursing Vital Signs Nursing Vital Signs: Initial Vital Signs Temperature 97.9 F 01/10/24 17:45 Pulse Rate 102 H 01/10/24 17:45 Respiratory Rate 18 01/10/24 17:45 Blood Pressure 128/86 01/10/24 17:45 O2 Sat by Pulse Oximetry 96 01/10/24 17:45 Pain Scale Pain Intensity 10 Ordered Tests: Active Orders 24 hr Category Date Time Status BLOOD CULTURE Stat Lab 01/10/24 17:10 Received CBC W DIFF Stat Lab 01/10/24 17:10 Completed CMP Stat Lab 01/10/24 17:10 Completed Lactic Acid Stat Lab 01/10/24 19:15 Completed Lactic Acid Stat Lab 01/10/24 21:25 Received Medication Summary Discontinued Medications Generic Name Dose Route Start Last Admin Trade Name Freq PRN Reason Stop Dose Admin Methylprednisolone Sodium 0 mg 01/10/24 18:31 01/10/24 18:49 Succinate 125 mg/ Sterile IM 01/10/24 18:32 125 mg Water 2 ml STAT ONE Administration Hydromorphone HCl 1 mg 01/10/24 18:31 01/10/24 18:46 Hydromorphone 1 Mg/1ml Inj IM 01/10/24 18:32 1 mg STAT ONE Administration Hydromorphone HCl Confirm 01/10/24 18:43 Hydromorphone 1 Mg/1ml Inj Administered 01/10/24 18:44 Dose 1 mg .ROUTE .STK-MED ONE Methylprednisolone Sodium Succinate Confirm 01/10/24 18:43 Methylprednis Sod Succ 125 Mg/2 Ml Vial Administered 01/10/24 18:44 Dose 125 mg .ROUTE .STK-MED ONE Sterile Water Confirm 01/10/24 18:43 Water For Injection,Sterile 10 Ml Vial Administered 01/10/24 18:44 Dose 10 ml IJ .STK-MED ONE Lab/Rad Data: Laboratory Result Diagrams 01/10/24 17:10 01/10/24 17:10 Laboratory Results 01/10/24 01/10/24 01/10/24 Range/Units 19:15 17:10 17:10 WBC 11.5 H (4.0-10.5) x10^3/uL RBC 5.43 (4.1-5.6) x10^6/uL Hgb 15.0 (12.5-18.0) g/dL Hct 48.8 (42-50) % MCV 89.9 (78-100) fL MCH 27.6 (26-32) pg MCHC 30.7 L (32-36) g/dL RDW 14.5 H (11.5-14.0) % Plt Count 443 (150-450) x10^3/uL MPV 9.5 (7.5-11.0) fL Gran % 78.6 H (36.0-66.0) % Immature Gran % (Auto) 0.7 H (0.00-0.4) % Nucleat RBC Rel Count 0.2 H (0.00-0.1) % Eos # (Auto) 0.04 (0-0.5) x10^3/uL Immature Gran # (Auto) 0.08 H (0.00-0.03) x10^3u/L Absolute Lymphs (auto) 1.78 (1.0-4.6) x10^3/uL Absolute Monos (auto) 0.52 (0.0-1.3) x10^3/uL Absolute Nucleated RBC 0.02 H (0.00-0.01) x10^3u/L Lymphocytes % 15.4 L (24.0-44.0) % Monocytes % 4.5 (0.0-12.0) % Eosinophils % 0.3 (0.00-5.0) % Basophils % 0.5 (0.0-0.4) % Absolute Granulocytes 9.05 H (1.4-6.9) x10^3/uL Basophils # 0.06 (0-0.4) x10^3/uL Sodium 140 (135-145) mmol/L Potassium 5.1 (3.5-5.1) mmol/L Chloride 102 (98-107) mmol/L Carbon Dioxide 28 (22-30) mmol/L Anion Gap 15.5 H (5-15) MEQ/L BUN 12 (9-20) mg/dL Creatinine 0.77 (0.66-1.25) mg/dL Estimated GFR 107.7 ML/MIN Glucose 177 H (74-106) mg/dL Lactic Acid 2.1 H (0.4-2.0) Calcium 9.4 (8.4-10.2) mg/dL Total Bilirubin 0.10 L (0.2-1.3) mg/dL AST 49 (17-59) U/L ALT 64 H (0-50) U/L Alkaline Phosphatase 94 (38-126) U/L Serum Total Protein 7.6 (6.3-8.2) g/dL Albumin 4.6 (3.5-5.0) g/dL <SERGEI AUGUSTINE - Last Filed: 01/10/24 19:06> - Progress Discussed with DrAngy: Other (Spoke with Dr. Alcantara(Neurologist at [facility])([id number]) who states pt needs to go to [facility]. Spoke with Dr. Hutchinson([id number]) who accepted pt for transfer to [facility] ER.) <KEN MILES - Last Filed: 01/11/24 01:04> - Progress Progress Note: 01/10/24 19:08 Is given one-time dose of pain medication and Solu-Medrol, workup is pending, care is transferred to Dr. Miles at end of my shift for reevaluation and final disposition. (SERGEI AUGUSTINE) 01/10/24 23:[address] Miles @[id number]: pharynx pink, TM's not injected, lungs clear, no cardiac rub, abdominal B.S. normal, no ankle edema, weakness and numbness in legs(ongoing for years per pt.), alert & cooperative. 01/11/24 00:59 Pt decided to sign out AMA. Pt was told he could if he signed out AMA. 01/11/24 01:03 Pt rotating neck, moving back and ambulating without apparent pain/difficulty when he left AMA. (KEN MILES) Medical Desision Making - Diagnostic Testing Diagnostic test were ordered, analyzed, and reviewed by me: Yes <KEN MILES - Last Filed: 01/11/24 01:04> <SERGEI AUGUSTINE - Last Filed: 01/10/24 19:06> - Departure Departure Disposition: AMA Critical Care Time: No <KEN MILES - Last Filed: 01/11/24 01:04> - Departure Clinical Impression: Mollaret's syndrome, Pain in neck, back and lower extremities Condition: Stable Referrals: ANN ALEXIS MD [Primary Care Provider] - Follow up/PCP as directed
[2024-01-10 19:21] LABS: Absolute Neutrophil Ct (ANC) 9.05 x10^3/uL (1.4-6.9); BASOPHIL % 0.5 % (0.0-0.4); Basophil (Absolute #) 0.06 x10^3/uL (0-0.4); Eosinophil % 0.3 % (0.00-5.0); Eosinophil (Absolute #) 0.04 x10^3/uL (0-0.5); Hematocrit 48.8 % (42-50); IMMATURE GRAN # 0.08 x10^3u/L (0.00-0.03); IMMATURE GRAN % 0.7 % (0.00-0.4); Lymphocyte (Absolute #) 1.78 x10^3/uL (1.0-4.6); Lymphocytes % 15.4 % (24.0-44.0); Mean Cell Volume 89.9 fL (78-100); Mean Corpuscular Hemoglobin 27.6 pg (26-32); Mean Corpuscular Hgb Concent. 30.7 g/dL (32-36); Mean Platelet Volume 9.5 fL (7.5-11.0); Monocyte (Absolute #) 0.52 x10^3/uL (0.0-1.3); Monocytes % 4.5 % (0.0-12.0); NUCLEATED RBC # 0.02 x10^3u/L (0.00-0.01); NUCLEATED RBC % 0.2 % (0.00-0.1); Neutrophil % 78.6 % (36.0-66.0); Platelet Count 443 x10^3/uL (150-450); Red Blood Count 5.43 x10^6/uL (4.1-5.6); Red Cell Distribution Width 14.5 % (11.5-14.0); White Blood Count 11.5 x10^3/uL (4.0-10.5)
[2024-01-10 19:37] LABS: ALBUMIN 4.6 g/dL (3.5-5.0); ANION GAP 15.5 MEQ/L (5-15); BILIRUBIN,TOTAL 0.1 mg/dL (0.2-1.3); Calcium 9.4 mg/dL (8.4-10.2); Creatinine 1 0.77 mg/dL (0.66-1.25); EST GLOMERULAR FILTRATION RATE 107.7 ML/MIN; Potassium 5.1 mmol/L (3.5-5.1); Total Protein 7.6 g/dL (6.3-8.2)
[2024-01-10 23:39] VITALS: BP 133/99
[2024-01-11 02:56] VITALS: PULSE 99; RESP 20; O2SAT 97
== END 2024-01-11 00:55 | disposition left against medical advice (07) ==
LOC: ED 16:10
DX: G03.2 Benign recurrent meningitis [Mollaret] (principal); M54.2 Cervicalgia; E11.9 Type 2 diabetes mellitus without complications; I10 Essential (primary) hypertension; E78.5 Hyperlipidemia, unspecified; Z79.899 Other long term (current) drug therapy
CPT/HCPCS: 36000; 36415; 80053; 83605; 85025; 87040; 96372; 99284; J1170; J2930